=== PATIENT | female | born 1970 | race Caucasian/White ===

== ENCOUNTER → 2017-10-08 15:55 | Outpatient (CLI) | payer BC, SELFPAY ==
[2017-10-08 17:41] LABS: Absolute Lymphocyte Count 1.99 X10^3/ul (0.83-4.51); Absolute Neutrophil Count 7.1 X10^3/uL (2.0-7.7); Basophil# 0.05 X10^3/uL; Basophil% 0.5 % (0-1); Hematocrit 40.5 % (37-47); Hemoglobin 13.5 g/dl (12.0-15.0); Lymphocyte # 1.99 X10^3/ul (4.0); Lymphocyte % 19.5 % (19-41); Mean Corp Hgb Conc 33.3 g/gl (32-36); Mean Corpuscular Hgb 27.5 pg (27.0-32.0); Mean Corpuscular Volume 82.5 fL (81-99); Mean Platelet Vol. 11.2 fl (6.2-12.0); Monocyte# 0.83 X10^3/uL; Monocyte% 8.1 % (0-10); Neutrophil % 69.3 % (47-70); Platelet Count 233 K/mm3 (150-450); Red Blood Count 4.91 M/mm3 (4.2-5.4); White Blood Count 10.2 K/mm3 (4.4-11.0)
[2017-10-08 17:58] LABS: POSITIVE COUNT NO; POSITIVE DIFFERENTIAL NO; POSITIVE MORPHOLOGY NO
[2017-10-08 18:21] LABS: AST(SGOT) 19 U/L (15-37); Alanine Aminotransfer ALT/SGPT 29 U/L (13-56); Albumin, Serum 3.8 g/dL (3.2-5.0); Alkaline Phosphatase 93 U/L (45-117); Anion Gap 10 (5-15); BUN 20 mg/dL (7-18); BUN/Creat Ratio 24.9 RATIO (10-20); Calcium,Total 9.4 mg/dL (8.5-10.1); Chloride 101 mmol/L (98-107); EST Glomerular Filtration Rate 80 mL/min (>60); Est Glom Filt Rate - Afr Amer 97 mL/min (>60); Globulin 3.9 g/dL (2.2-4.2); Glucose 98 mg/dL (70-110); Protein, Total 7.7 g/dL (6.4-8.2); Sodium Level 137 mmol/L (136-145)
== END ==
PROVIDERS: Family Provider Preventive Medicine Occupational Medicine; PCP Preventive Medicine Occupational Medicine; Visit Provider Internal Medicine Rheumatology
DX: M06.09 Rheumatoid arthritis without rheumatoid factor, multiple sites (principal); M79.7 Fibromyalgia; M17.0 Bilateral primary osteoarthritis of knee; M21.40 Flat foot [pes planus] (acquired), unspecified foot; K76.0 Fatty (change of) liver, not elsewhere classified; E11.9 Type 2 diabetes mellitus without complications; I10 Essential (primary) hypertension; E03.9 Hypothyroidism, unspecified; G25.81 Restless legs syndrome; G47.33 Obstructive sleep apnea (adult) (pediatric); E28.2 Polycystic ovarian syndrome; N80.0 Endometriosis of uterus; K21.0 Gastro-esophageal reflux disease with esophagitis; Z79.899 Other long term (current) drug therapy
CPT/HCPCS: 36415; 80053; 85025

== ENCOUNTER → 2018-01-05 09:19 | Outpatient (CLI) | payer BC, SELFPAY ==
[2018-01-05 12:42] LABS: Absolute Lymphocyte Count 2.27 X10^3/ul (0.83-4.51); Absolute Neutrophil Count 5.8 X10^3/uL (2.0-7.7); Basophil# 0.03 X10^3/uL; Basophil% 0.3 % (0-1); Eosinophil# 0.11 X10^3/uL; Eosinophils% 1.2 % (0-5); Hematocrit 40.1 % (37-47); Hemoglobin 12.8 g/dl (12.0-15.0); Lymphocyte # 2.27 X10^3/ul (4.0); Lymphocyte % 25.7 % (19-41); Mean Corp Hgb Conc 31.9 g/gl (32-36); Mean Corpuscular Hgb 26.8 pg (27.0-32.0); Mean Corpuscular Volume 84.1 fL (81-99); Mean Platelet Vol. 10.2 fl (6.2-12.0); Monocyte# 0.57 X10^3/uL; Monocyte% 6.5 % (0-10); Neutrophil # 5.82 X10^3/uL (2.7-7.7); Platelet Count 251 K/mm3 (150-450); RBC Distribution Width CV 13.9 % (11.6-14.6); RBC Distribution Width SD 42.9 fl (35.1-43.9); Red Blood Count 4.77 M/mm3 (4.2-5.4); White Blood Count 8.8 K/mm3 (4.4-11.0)
[2018-01-05 13:10] LABS: AST(SGOT) 19 U/L (15-37); Alanine Aminotransfer ALT/SGPT 26 U/L (13-56); Albumin, Serum 3.7 g/dL (3.2-5.0); Alkaline Phosphatase 100 U/L (45-117); Anion Gap 7 (5-15); BUN 23 mg/dL (7-18); BUN/Creat Ratio 30.7 RATIO (10-20); Calcium,Total 9.1 mg/dL (8.5-10.1); Chloride 105 mmol/L (98-107); Creatinine, Serum 0.75 mg/dL (0.55-1.02); EST Glomerular Filtration Rate 87 mL/min (>60); Est Glom Filt Rate - Afr Amer 105 mL/min (>60); Globulin 3.8 g/dL (2.2-4.2); Glucose 120 mg/dL (74-106); Potassium 4.3 mmol/L (3.5-5.1); Protein, Total 7.5 g/dL (6.4-8.2); Sodium Level 140 mmol/L (136-145)
[2018-01-05 13:15] LABS: POSITIVE COUNT NO; POSITIVE DIFFERENTIAL NO; POSITIVE MORPHOLOGY NO
== END ==
PROVIDERS: Family Provider Preventive Medicine Occupational Medicine; PCP Preventive Medicine Occupational Medicine; Visit Provider Internal Medicine Rheumatology
DX: M06.09 Rheumatoid arthritis without rheumatoid factor, multiple sites (principal); M17.0 Bilateral primary osteoarthritis of knee; M21.40 Flat foot [pes planus] (acquired), unspecified foot; E11.9 Type 2 diabetes mellitus without complications; I10 Essential (primary) hypertension; E03.9 Hypothyroidism, unspecified; G25.81 Restless legs syndrome; E28.2 Polycystic ovarian syndrome; N80.0 Endometriosis of uterus; K76.0 Fatty (change of) liver, not elsewhere classified; M79.7 Fibromyalgia; K21.0 Gastro-esophageal reflux disease with esophagitis; G47.33 Obstructive sleep apnea (adult) (pediatric); Z79.899 Other long term (current) drug therapy
CPT/HCPCS: 36415; 80053; 85025

== ENCOUNTER → 2018-01-28 14:03 | Outpatient (CLI) | payer BC, SELFPAY ==
--- NOTE | 2018-01-28 14:12 | BI_ITS ---
MAMMOGRAPHY - BILATERAL DIAGNOSTIC REASON FOR EXAM: Female, 47 years old. 3 month history of the left breast nipple discharge. PERTINENT HISTORY: Aunt with breast cancer. TECHNIQUE: Digital bilateral breast luis (3D mammographic acquisition) in the CC and MLO projections. 2-D mediolateral oblique (MLO) and craniocaudad (CC) views of both breasts were obtained. CAD: Full Field Digital Mammography with Computer Added Detection was performed. COMPARISON: Comparison is made with prior study dated July 25, 2015 and January 08, 2017. FINDINGS: Breast Composition: The breasts are heterogeneously dense, which may obscure small masses. There are no dominant masses or suspicious calcifications. Stable bilateral benign appearing axillary lymph nodes. No other significant abnormalities are identified. There has been no significant change since the prior study. BI/DIAG MAMM W/CAD, BILAT IMPRESSION: Stable bilateral diagnostic mammogram. One year follow-up recommended. (A) ASSESSMENT CATEGORY: BIRADS Category 2: Benign. A letter regarding these results will be sent to the patient by the facility within 30 days. Approximately 10% of breast cancers are not detected by mammography. A normal mammogram should not delay biopsy of a clinically suspicious abnormality. Electronically Signed: Jakub Kyle MD at 15:57 EDT Tel [phone], Service support ,
--- NOTE | 2018-01-28 14:49 | US_ITS ---
STUDY: ULTRASOUND BREAST - LEFT REASON FOR EXAM: Female, 47 years old. Nipple discharge in the left breast. TECHNIQUE: Axial and longitudinal images of the LEFT breast were performed with a high resolution ultrasound transducer. COMPARISON: Comparison is made with prior mammogram done earlier today. FINDINGS: LEFT Breast: The retroareolar region of the breast was examined by ultrasound. No sonographic abnormality is seen. US/Breast Limited Unilateral IMPRESSION: No sonographic abnormality is seen. ASSESSMENT CATEGORY: BIRADS Category 1: Negative. A letter regarding these results will be sent to the patient by the facility within 30 days. Electronically Signed: Jakub Kyle MD at 7:58 EDT Tel [phone], Service support ,
== END ==
PROVIDERS: Family Provider Preventive Medicine Occupational Medicine; PCP Preventive Medicine Occupational Medicine
DX: N64.52 Nipple discharge (principal)
CPT/HCPCS: 76642; 77062; 77066; G0279

== ENCOUNTER → 2018-02-20 07:15 | Outpatient (CLI) | payer BC, SELFPAY ==
[2018-02-20 10:37] LABS: Microalbumin,Random Urine 10.6 mg/L (NO RANGE EST.)
[2018-02-20 10:42] LABS: Hemoglobin A1c 6.7 % (4.2-6.3)
[2018-02-20 10:57] LABS: ALB/GLOB Ratio 1.1 RATIO (0.9-2.4); AST(SGOT) 20 U/L (15-37); Alanine Aminotransfer ALT/SGPT 29 U/L (13-56); Albumin, Serum 3.5 g/dL (3.2-5.0); Alkaline Phosphatase 81 U/L (45-117); Anion Gap 8 (5-15); BUN 15 mg/dL (7-18); BUN/Creat Ratio 22.8 RATIO (10-20); Calcium,Total 8.5 mg/dL (8.5-10.1); Chloride 104 mmol/L (98-107); Creatinine, Serum 0.66 mg/dL (0.55-1.02); EST Glomerular Filtration Rate 101 mL/min (>60); Est Glom Filt Rate - Afr Amer 123 mL/min (>60); Globulin 3.2 g/dL (2.2-4.2); Glucose 104 mg/dL (74-106); Potassium 3.9 mmol/L (3.5-5.1); Protein, Total 6.7 g/dL (6.4-8.2); Sodium Level 141 mmol/L (136-145); Thyroid Stim Hormone (TSH) 0.74 uIU/mL (0.358-3.74)
== END ==
PROVIDERS: Family Provider Preventive Medicine Occupational Medicine; PCP Preventive Medicine Occupational Medicine; Visit Provider Internal Medicine Endocrinology, Diabetes & Metabolism
DX: E11.65 Type 2 diabetes mellitus with hyperglycemia (principal); E03.8 Other specified hypothyroidism
CPT/HCPCS: 36415; 80053; 82043; 83036; 84443

== ENCOUNTER → 2018-04-11 08:38 | Outpatient (CLI) | payer BC, SELFPAY ==
[2018-04-11 09:48] LABS: Absolute Lymphocyte Count 1.69 X10^3/ul (0.83-4.51); Absolute Neutrophil Count 6.5 X10^3/uL (2.0-7.7); Basophil# 0.01 X10^3/uL; Basophil% 0.1 % (0-1); Eosinophil# 0.22 X10^3/uL; Eosinophils% 2.4 % (0-5); Hematocrit 39.1 % (37-47); Hemoglobin 12.7 g/dl (12.0-15.0); Lymphocyte # 1.69 X10^3/ul (4.0); Lymphocyte % 18.5 % (19-41); Mean Corp Hgb Conc 32.5 g/gl (32-36); Mean Corpuscular Hgb 27.3 pg (27.0-32.0); Mean Corpuscular Volume 84.1 fL (81-99); Mean Platelet Vol. 10.4 fl (6.2-12.0); Monocyte# 0.65 X10^3/uL; Monocyte% 7.1 % (0-10); Neutrophil # 6.53 X10^3/uL (2.7-7.7); Neutrophil % 71.5 % (47-70); Platelet Count 198 K/mm3 (150-450); RBC Distribution Width CV 13.6 % (11.6-14.6); RBC Distribution Width SD 41.1 fl (35.1-43.9); Red Blood Count 4.65 M/mm3 (4.2-5.4); White Blood Count 9.1 K/mm3 (4.4-11.0)
[2018-04-11 09:49] LABS: POSITIVE COUNT NO; POSITIVE DIFFERENTIAL NO; POSITIVE MORPHOLOGY NO
[2018-04-11 10:15] LABS: AST(SGOT) 19 U/L (15-37); Alanine Aminotransfer ALT/SGPT 25 U/L (13-56); Albumin, Serum 3.4 g/dL (3.2-5.0); Alkaline Phosphatase 90 U/L (45-117); Anion Gap 9 (5-15); BUN 14 mg/dL (7-18); Calcium,Total 8.6 mg/dL (8.5-10.1); Chloride 103 mmol/L (98-107); Creatinine, Serum 0.64 mg/dL (0.55-1.02); EST Glomerular Filtration Rate 105 mL/min (>60); Est Glom Filt Rate - Afr Amer 127 mL/min (>60); Globulin 3.5 g/dL (2.2-4.2); Glucose 127 mg/dL (74-106); Potassium 3.9 mmol/L (3.5-5.1); Protein, Total 6.9 g/dL (6.4-8.2); Sodium Level 139 mmol/L (136-145)
== END ==
PROVIDERS: Family Provider Preventive Medicine Occupational Medicine; PCP Preventive Medicine Occupational Medicine; Visit Provider Internal Medicine Rheumatology
DX: M06.09 Rheumatoid arthritis without rheumatoid factor, multiple sites (principal); M17.0 Bilateral primary osteoarthritis of knee; M79.7 Fibromyalgia; Z79.899 Other long term (current) drug therapy
CPT/HCPCS: 36415; 80053; 85025

== ENCOUNTER → 2018-05-15 07:49 | Outpatient (CLI) | payer BC, SELFPAY ==
[2018-05-15 11:16] LABS: Hemoglobin A1c 6.7 % (4.2-6.3)
[2018-05-15 11:38] LABS: ALB/GLOB Ratio 1.1 RATIO (0.9-2.4); AST(SGOT) 21 U/L (15-37); Alanine Aminotransfer ALT/SGPT 29 U/L (13-56); Albumin, Serum 3.6 g/dL (3.2-5.0); Alkaline Phosphatase 89 U/L (45-117); Anion Gap 10 (5-15); BUN 19 mg/dL (7-18); BUN/Creat Ratio 26.6 RATIO (10-20); Calcium,Total 8.7 mg/dL (8.5-10.1); Chloride 104 mmol/L (98-107); Creatinine, Serum 0.71 mg/dL (0.55-1.02); EST Glomerular Filtration Rate 92 mL/min (>60); Est Glom Filt Rate - Afr Amer 111 mL/min (>60); Globulin 3.4 g/dL (2.2-4.2); Glucose 117 mg/dL (74-106); Potassium 4.1 mmol/L (3.5-5.1); Sodium Level 140 mmol/L (136-145)
== END ==
PROVIDERS: Family Provider Preventive Medicine Occupational Medicine; PCP Preventive Medicine Occupational Medicine; Visit Provider Internal Medicine Endocrinology, Diabetes & Metabolism
DX: E11.65 Type 2 diabetes mellitus with hyperglycemia (principal)
CPT/HCPCS: 36415; 80053; 83036

== ENCOUNTER → 2018-06-20 08:20 | Outpatient (CLI) | payer BC, SELFPAY ==
[2018-06-20 09:20] LABS: Absolute Lymphocyte Count 1.74 X10^3/ul (0.83-4.51); Absolute Neutrophil Count 8.1 X10^3/uL (2.0-7.7); Basophil# 0.02 X10^3/uL; Basophil% 0.2 % (0-1); Eosinophil# 0.11 X10^3/uL; Hematocrit 40.9 % (37-47); Hemoglobin 13.6 g/dl (12.0-15.0); Lymphocyte # 1.74 X10^3/ul (4.0); Lymphocyte % 16.2 % (19-41); Mean Corp Hgb Conc 33.3 g/gl (32-36); Mean Corpuscular Hgb 27.8 pg (27.0-32.0); Mean Corpuscular Volume 83.6 fL (81-99); Mean Platelet Vol. 10.5 fl (6.2-12.0); Monocyte# 0.74 X10^3/uL; Monocyte% 6.9 % (0-10); Neutrophil # 8.05 X10^3/uL (2.7-7.7); Neutrophil % 75.2 % (47-70); POSITIVE COUNT NO; POSITIVE DIFFERENTIAL NO; POSITIVE MORPHOLOGY NO; Platelet Count 235 K/mm3 (150-450); RBC Distribution Width CV 13.8 % (11.6-14.6); RBC Distribution Width SD 41.7 fl (35.1-43.9); Red Blood Count 4.89 M/mm3 (4.2-5.4); White Blood Count 10.7 K/mm3 (4.4-11.0)
[2018-06-20 09:43] LABS: AST(SGOT) 22 U/L (15-37); Alanine Aminotransfer ALT/SGPT 31 U/L (13-56); Albumin, Serum 3.7 g/dL (3.2-5.0); Alkaline Phosphatase 97 U/L (45-117); Anion Gap 9 (5-15); BUN 14 mg/dL (7-18); BUN/Creat Ratio 19.3 RATIO (10-20); Calcium,Total 9.1 mg/dL (8.5-10.1); Chloride 102 mmol/L (98-107); Creatinine, Serum 0.72 mg/dL (0.55-1.02); EST Glomerular Filtration Rate 90 mL/min (>60); Est Glom Filt Rate - Afr Amer 109 mL/min (>60); Globulin 3.6 g/dL (2.2-4.2); Glucose 129 mg/dL (74-106); Potassium 4.3 mmol/L (3.5-5.1); Protein, Total 7.3 g/dL (6.4-8.2); Sodium Level 138 mmol/L (136-145)
[2018-06-20 10:13] LABS: CORTISOL SERUM < 0.50 ug/dL (3.09-22.40)
== END ==
PROVIDERS: Family Provider Preventive Medicine Occupational Medicine; PCP Preventive Medicine Occupational Medicine; Referring Provider Internal Medicine Endocrinology, Diabetes & Metabolism; Visit Provider Internal Medicine Endocrinology, Diabetes & Metabolism
DX: E24.9 Cushing's syndrome, unspecified (principal); M06.09 Rheumatoid arthritis without rheumatoid factor, multiple sites; M79.7 Fibromyalgia; M17.0 Bilateral primary osteoarthritis of knee; M21.40 Flat foot [pes planus] (acquired), unspecified foot; K21.0 Gastro-esophageal reflux disease with esophagitis; K76.0 Fatty (change of) liver, not elsewhere classified; E11.9 Type 2 diabetes mellitus without complications; I10 Essential (primary) hypertension; E03.9 Hypothyroidism, unspecified; G25.81 Restless legs syndrome; G47.33 Obstructive sleep apnea (adult) (pediatric); E28.2 Polycystic ovarian syndrome; N80.0 Endometriosis of uterus
CPT/HCPCS: 36415; 80053; 82533; 85025

== ENCOUNTER → 2018-08-14 13:34 | Outpatient (CLI) | payer BC, SELFPAY ==
--- NOTE | 2018-08-14 13:42 | BI_ITS ---
MAMMOGRAPHY - BILATERAL DIAGNOSTIC REASON FOR EXAM: Female, 48 years old. Six-week history of bilateral axillary lumps. PERTINENT HISTORY: Aunt with breast cancer. TECHNIQUE: Digital bilateral breast luis (3D mammographic acquisition) in the CC and MLO projections. 2-D mediolateral oblique (MLO) and craniocaudad (CC) views of both breasts were obtained. CAD: Full Field Digital Mammography with Computer Added Detection was performed. COMPARISON: Comparison is made with prior study dated January 28, 2018 and January 08, 2017. FINDINGS: Breast Composition: The breasts are heterogeneously dense, which may obscure small masses. There are no dominant masses or suspicious calcifications. Stable benign-appearing bilateral axillary lymph nodes. No other significant abnormalities are identified. There has been no significant change since the prior study. BI/DIAG MAMM W/CAD, BILAT IMPRESSION: Stable bilateral diagnostic mammogram. With the patient's history of palpable abnormalities in both axillary regions, correlation with ultrasound is recommended. ASSESSMENT CATEGORY: BIRADS Category 0: Incomplete. Need additional imaging evaluation. A letter regarding these results will be sent to the patient by the facility within 30 days. Approximately 10% of breast cancers are not detected by mammography. A normal mammogram should not delay biopsy of a clinically suspicious abnormality. Electronically Signed: Jakub Kyle MD at 15:00 EST Tel [phone], Service support ,
--- NOTE | 2018-08-14 13:43 | US_ITS ---
STUDY: ULTRASOUND BREAST - RIGHT REASON FOR EXAM: Female, 48 years old. Bilateral axillary lumps. TECHNIQUE: Axial and longitudinal images of the RIGHT breast were performed with a high resolution ultrasound transducer. COMPARISON: Comparison is made with prior mammogram done earlier today. FINDINGS: RIGHT Breast: 2 benign-appearing lymph nodes are seen in the right axilla. The larger measures 1.7 cm x 2.3 cm x 0.9 cm. IMPRESSION: 2 benign-appearing right axillary lymph nodes. ASSESSMENT CATEGORY: BIRADS Category 2: Benign. A letter regarding these results will be sent to the patient by the facility within 30 days. Electronically Signed: Jakub Kyle MD at 15:42 EST Tel [phone], Service support , STUDY: ULTRASOUND BREAST - LEFT REASON FOR EXAM: Female, 48 years old. Left axillary lumps. TECHNIQUE: Axial and longitudinal images of the LEFT breast were performed with a high resolution ultrasound transducer. COMPARISON: Comparison is made with prior mammogram done earlier today. FINDINGS: LEFT Breast: There are 2 benign-appearing axillary lymph nodes. The larger measures 1.9 cm x 1.5 cm x 1 cm. US/Breast Limited Unilateral IMPRESSION: 2 benign-appearing lymph nodes are seen. The larger measures 1.9 cm x 1.5 cm x 1 cm. ASSESSMENT CATEGORY: BIRADS Category 2: Benign. A letter regarding these results will be sent to the patient by the facility within 30 days. Electronically Signed: Jakub Kyle MD at 15:43 EST Tel [phone], Service support ,
== END ==
PROVIDERS: Family Provider Preventive Medicine Occupational Medicine; PCP Preventive Medicine Occupational Medicine; Referring Provider Preventive Medicine Occupational Medicine; Visit Provider Preventive Medicine Occupational Medicine
DX: N63.0 Unspecified lump in unspecified breast (principal)
CPT/HCPCS: 76642; 77062; 77066; G0279

== ENCOUNTER → 2018-09-23 07:30 | Outpatient (CLI) | payer BC, SELFPAY ==
[2018-09-23 10:09] LABS: Absolute Lymphocyte Count 1.85 X10^3/ul (0.83-4.51); Absolute Neutrophil Count 5.1 X10^3/uL (2.0-7.7); Basophil# 0.03 X10^3/uL; Basophil% 0.4 % (0-1); Eosinophil# 0.15 X10^3/uL; Eosinophils% 1.9 % (0-5); Hematocrit 38.7 % (37-47); Hemoglobin 12.9 g/dl (12.0-15.0); Lymphocyte # 1.85 X10^3/ul (4.0); Lymphocyte % 23.4 % (19-41); Mean Corp Hgb Conc 33.3 g/gl (32-36); Mean Corpuscular Hgb 27.9 pg (27.0-32.0); Mean Corpuscular Volume 83.8 fL (81-99); Mean Platelet Vol. 10.5 fl (6.2-12.0); Monocyte# 0.74 X10^3/uL; Monocyte% 9.4 % (0-10); Neutrophil # 5.09 X10^3/uL (2.7-7.7); Neutrophil % 64.4 % (47-70); POSITIVE COUNT NO; POSITIVE DIFFERENTIAL NO; POSITIVE MORPHOLOGY NO; Platelet Count 265 K/mm3 (150-450); RBC Distribution Width CV 13.4 % (11.6-14.6); RBC Distribution Width SD 40.3 fl (35.1-43.9); Red Blood Count 4.62 M/mm3 (4.2-5.4); White Blood Count 7.9 K/mm3 (4.4-11.0)
[2018-09-23 10:20] LABS: ALB/GLOB Ratio 1.2 RATIO (0.9-2.4); AST(SGOT) 21 U/L (15-37); Alanine Aminotransfer ALT/SGPT 32 U/L (13-56); Albumin, Serum 3.8 g/dL (3.2-5.0); Alkaline Phosphatase 96 U/L (45-117); Anion Gap 8 (5-15); BUN 20 mg/dL (7-18); BUN/Creat Ratio 23.5 RATIO (10-20); Calcium,Total 9.2 mg/dL (8.5-10.1); Chloride 106 mmol/L (98-107); Cholesterol 178 mg/dL (200); Creatinine, Serum 0.85 mg/dL (0.55-1.02); EST Glomerular Filtration Rate 75 mL/min (>60); Est Glom Filt Rate - Afr Amer 91 mL/min (>60); Globulin 3.3 g/dL (2.2-4.2); Glucose 121 mg/dL (74-106); High Density Lipoprotein 63 mg/dL; Potassium 3.8 mmol/L (3.5-5.1); Protein, Total 7.1 g/dL (6.4-8.2); Sodium Level 140 mmol/L (136-145); Triglycerides 98 mg/dL; Very Low Density Lipoprotein 20 mg/dL (5-40)
[2018-09-23 10:26] LABS: Hemoglobin A1c 7.8 % (4.2-6.3)
--- OUTSIDE RECORDS SUMMARY | 2018-11-27 22:24 | XMS RPT_ITS ---
:1970 Author Organization OHIP Support Name Relationship Address Phone [facility] Unavailable [id number] + [place] [address] LORIE, ULYSSES Unavailable [address] + [place] [address] [facility] Unavailable [address] + [place] [address] LORIE, ULYSSES Unavailable [address] + [place] [address] [facility] Unavailable [address] + [place] [address] LORIE, ULYSSES Unavailable [address] + [place] [address] [facility] Unavailable [address] + [place] [address] LORIE, ULYSSES Unavailable [address] + [place] [address] [facility] Unavailable [address] + [place] [address] LORIE, ULYSSES Unavailable [address] + [place] [address] [facility] Unavailable [address] + [place] [address] LORIE, ULYSSES Unavailable [address] + [place] [address] LORIE, OLIVIA Unavailable Unavailable + LORIE, OLIVIA Unavailable Unavailable + [facility] Unavailable [address] + [place] [address] LORIE, ULYSSES Unavailable [address] + [place] [address] [facility] Unavailable [address] + [place] [address] LORIE, ULYSSES Unavailable [address] + [place] [address] [facility] Unavailable [address] + [place] [address] LORIE, ULYSSES Unavailable [address] + [place] [address] Care Team Providers Name Role Phone EMELY JERONIMO, [phone] SANDRA Attending Unavailable SHIRA, SERGIO Primary Care Unavailable Vellanki, Lena Attending Unavailable Vellanki, Lena Referring Unavailable Shira, Sergio Primary Care Unavailable WIETECHA, SIVA Consulting Unavailable Vellanki, Lena Attending Unavailable Vellanki, Lena Referring Unavailable Shira, Sergio Primary Care Unavailable Vellanki, Lena Attending Unavailable Vellanki, Lena Referring Unavailable Shira, Sergio Primary Care Unavailable MANJIT WILLOUGHBY Attending Unavailable Shira, Sergio Primary Care Unavailable TATIANA, SIVA Attending Unavailable WIETECHA, SIVA Referring Unavailable Shira, Sergio Primary Care Unavailable Vellanki, Lena Attending Unavailable Vellanki, Lena Referring Unavailable Shira, Sergio Primary Care Unavailable WIDAWSON, SIVA Attending Unavailable WIETECHA, SIVA Referring Unavailable Shira, Sergio Primary Care Unavailable WIETECHA, SIVA Attending Unavailable WIETECHA, SIVA Referring Unavailable Shira, Sergio Primary Care Unavailable Vellanki, Lena Consulting Unavailable Shira Sergio Attending Unavailable Shira, Sergio Primary Care Unavailable Shira, Sergio Referring Unavailable PROBLEMS PROBLEMS DATE TYPE CONDITION / CODE ATTENDING STATUS SOURCE 09/23/2018 Unknown M06.09 - Rheumatoid Vellanki, Lena Active [place] arthritis without Community rheumatoid factor, Hospital multiple sites / Repository M06.09(ICD-10) 09/23/2018 Unknown Z79.899 - Other long Vellanki, Lena Active [facility] term (current) drug Community therapy / Hospital Z79.899(ICD-10) Repository 09/23/2018 Unknown M79.7 - Fibromyalgia Vellanki, Lena Active [facility] / M79.7(ICD-10) [facility] Repository 09/23/2018 Unknown M17.0 - Bilateral Vellanki, Lena Active [place] primary Community osteoarthritis of Hospital knee / M17.0(ICD-10) Repository 09/23/2018 Unknown E11.9 - Type 2 Lena Colon Active [place] diabetes mellitus Community without Hospital complications / Repository E11.9(ICD-10) 09/23/2018 Unknown E78.2 - Mixed Lena Colon Active [place] hyperlipidemia / Community E78.2(ICD-10) Hospital Repository 05/15/2018 Unknown E11.65 - Type 2 SIVA SIMPSON Active [place] diabetes mellitus Community with hyperglycemia / Hospital E11.65(ICD-10) Repository 2018 Unknown E03.8 - Other SIVA SIMPSON Active [place] specified Community hypothyroidism / Hospital E03.8(ICD-10) Repository PROCEDURES PROCEDURES No Procedure Records FoundRESULTS RESULTS CBC W/DIFF, AUTOMATED Collected: 09/23/2018 Status: F Source: [facility] 7:35 AM [facility] Order Comment: DR COLON ORDERED CMP/CBCD DR SIMPSON ORDERED CMP/LIPID/A1C TYPE CODE TESTS RESULT OUT OF RANGE REFERENCE UNITS LAB L100.1000 4.4-11.0 K/mm3 Normal WBC 7.9 LAB L100.1200 4.2-5.4 M/mm3 Normal RBC 4.62 LAB L100.1300 12.0-15.0 g/dl Normal HGB 12.9 LAB L100.1400 37-47 % Normal HCT 38.7 LAB L100.1500 81-99 fL Normal MCV 83.8 LAB L100.1600 27.0-32.0 pg Normal MCH 27.9 LAB L100.1700 32-36 g/gl Normal MCHC 33.3 LAB L100.1810 11.6-14.6 % Normal RDW CV 13.4 LAB L100.1820 35.1-43.9 fl Normal RDW SD 40.3 LAB L100.1900 150-450 K/mm3 Normal PLT 265 LAB L100.2000 6.2-12.0 fl Normal MPV 10.5 LAB L100.2100 47-70 % Normal NEUT% 64.4 LAB L100.2200 19-41 % Normal LY% 23.4 LAB L100.2300 0-10 % Normal MONO% 9.4 LAB L100.2400 0-5 % Normal EO% 1.9 LAB L100.2500 0-1 % Normal BASO% 0.4 LAB L100.2550 0.0-0.9 % Normal IM GRAN % 0.500 Result Comment: IG% - Immature Granulocytes (promyelocytes, myelocytes and metamyelocytes) > 1% indicates that a LEFT SHIFT is Present. LAB L100.2620 2.0-7.7 X10 3/uL Normal Absolute Neut 5.1 LAB L100.2720 0.83-4.51 X10 3/ul Normal Absolute Lymph 1.85 Performed By: #### L100.0100 #### [facility] [address] [place], [address] COMPREHENSIVE METABOLIC Collected: 09/23/2018 Status: F Source: [facility] 7:35 AM [facility] REPOSITORY Order Comment: DR COLON ORDERED CMP/CBCD DR SIMPSON ORDERED CMP/LIPID/A1C TYPE CODE TESTS RESULT OUT OF RANGE REFERENCE UNITS LAB L501.0100 74-106 mg/dL High GLU 121 Result Comment: Fasting Glucose result from 100 to 125 mg/dL suggests IMPAIRED HOMEOSTASIS per A.D.A. criteria. Please note revised GLUCOSE reference range effective 2017. LAB L501.1000 7-18 mg/dL High BUN 20 LAB L501.1100 0.55-1.02 mg/dL Normal CREAT,SERUM 0.85 Result Comment: The validity of the calculated GFR AND GFRAA in patients over 70 years has not been determined. Clinical correlation is essential. LAB L501.1110 >60 mL/min Normal EST GFR 75 Result Comment: Non- GFR Calc LAB L501.1115 >60 mL/min Normal EST GFR - AA 91 Result Comment: GFR Calc LAB L501.1300 10-20 RATIO High BUN/CRE 23.5 LAB L501.1500 6.4-8.2 g/dL T Normal PROT 7.1 LAB L501.1800 3.2-5.0 g/dL Normal ALB 3.8 LAB L501.1950 2.2-4.2 g/dL Normal GLOB 3.3 LAB L501.2000 0.9-2.4 RATIO Normal A/G 1.2 LAB L501.2200 8.5-10.1 mg/dL CA Normal 9.2 LAB L501.4100 15-37 U/L Normal AST 21 LAB L501.4305 45-117 U/L Normal ALK P 96 LAB L501.4405 13-56 U/L Normal ALT 32 LAB L501.4600 0.20-1.00 mg/dL T Normal BILI 0.40 LAB L501.5300 136-145 mmol/L NA Normal 140 LAB L501.5600 3.5-5.1 mmol/L K Normal 3.8 LAB L501.5900 98-107 mmol/L CL Normal 106 LAB L501.6100 21.0-32.0 mmol/L Normal CO2 26.0 LAB L501.6200 5-15 Normal GAP 8 Performed By: #### L500.4050, L500.4100 #### [facility] [address] [place], [place], [address] LIPID PROFILE Collected: 09/23/2018 Status: F Source: [facility] 7:35 AM [facility] REPOSITORY Order Comment: DR COLON ORDERED CMP/CBCD DR SIMPSON ORDERED CMP/LIPID/A1C TYPE CODE TESTS RESULT OUT OF RANGE REFERENCE UNITS LAB L501.4900 200 mg/dL Normal CHOL 178 Result Comment: <200 mg/dL Desirable 200-240 mg/dL Borderline >240 mg/dL High Risk LAB L501.5000 mg/dL Normal TRIG 98 Result Comment: The drugs N-Acetylcysteine and Metamizole may falsely depress this assay. Serum Triglycerides Reference Interval Normal <150 mg/dL Borderline high 150 - 199 mg/dL High 200 - 499 mg/dL Very High > or = 500 mg/dL LAB L501.6400 mg/dL Normal HDL 63 Result Comment: The drugs N-Acetylcysteine and Metamizole may falsely depress this assay. Reference Range HDL <40 mg/dL Low HDL Cholesterol HDL >or= 60 mg/dL High HDL Cholesterol LAB L501.6500 0-130 mg/dL Normal LDL 95 LAB L501.6600 5-40 mg/dL Normal VLDL 20 Performed By: #### L500.4050, L500.4100 #### [facility] [address] [place], [place], [address] HEMOGLOBIN A1C Collected: 09/23/2018 Status: F Source: [facility] 7:35 AM [facility] REPOSITORY Order Comment: DR COLON ORDERED CMP/CBCD DR SIMPSON ORDERED CMP/LIPID/A1C TYPE CODE TESTS RESULT OUT OF RANGE REFERENCE UNITS LAB L501.9985 4.2-6.3 % High HGB A1C 7.8 Performed By: #### L501.9985 #### [facility] [address] [place], [address] DIAG MAMM W/CAD, Observed: 08/14/2018 Status: F Source: [facility] 1:43 PM [facility] REPOSITORY [facility] Imaging Services [address] [place] [address] DIAG MAMM W/CAD, BILAT MR#: [id number] Acct: [id number] Name: PRAVIN MELO Rep #: [id number] : 1970 F 48 From: Jakub Kyle MD PCP: Sergio Silva DO Status: REG CLI Study: DIAG MAMM W/CAD, BILAT Date of Exam: 08/14/18 Exam# [id number] Ordering Dr: Sergio Silva DO MAMMOGRAPHY - BILATERAL DIAGNOSTIC REASON FOR EXAM: Female, 48 years old. Six-week history of bilateral axillary lumps. PERTINENT HISTORY: Aunt with breast cancer. TECHNIQUE: Digital bilateral breast luis (3D mammographic acquisition) in the CC and MLO projections. 2-D mediolateral oblique (MLO) and craniocaudad (CC) views of both breasts were obtained. CAD: Full Field Digital Mammography with Computer Added Detection was performed. COMPARISON: Comparison is made with prior study dated January 28, 2018 and January 08, 2017. FINDINGS: Breast Composition: The breasts are heterogeneously dense, which may obscure small masses. There are no dominant masses or suspicious calcifications. Stable benign-appearing bilateral axillary lymph nodes. No other significant abnormalities are identified. There has been no significant change since the prior study. BI/DIAG MAMM W/CAD, BILAT IMPRESSION: Stable bilateral diagnostic mammogram. With the patient's history of palpable abnormalities in both axillary regions, correlation with ultrasound is recommended. ASSESSMENT CATEGORY: BIRADS Category 0: Incomplete. Need additional imaging evaluation. A letter regarding these results will be sent to the patient by the facility within 30 days. Approximately 10% of breast cancers are not detected by mammography. A normal mammogram should not delay biopsy of a clinically suspicious abnormality. Electronically Signed: Jakub Kyle MD at 15:00 EST Tel [phone], Service support , CC: Sergio Silva DO Puppet Maker: Signed BREAST LIMITED Observed: 08/14/2018 Status: F Source: [facility] 1:43 PM [facility] REPOSITORY [facility] Imaging Services [address] [place] [address] Breast Limited Unilateral MR#: [id number] Acct: [id number] Name: PRAVIN MELO Rep #: [id number] : 1970 F 48 From: Jakub Kyle MD PCP: Sergio Silva DO Status: REG CLI Study: Breast Limited Unilateral Date of Exam: 08/14/18 Exam# [id number] Ordering Dr: Sergio Silva DO STUDY: ULTRASOUND BREAST - RIGHT REASON FOR EXAM: Female, 48 years old. Bilateral axillary lumps. TECHNIQUE: Axial and longitudinal images of the RIGHT breast were performed with a high resolution ultrasound transducer. COMPARISON: Comparison is made with prior mammogram done earlier today. FINDINGS: RIGHT Breast: 2 benign-appearing lymph nodes are seen in the right axilla. The larger measures 1.7 cm x 2.3 cm x 0.9 cm. IMPRESSION: 2 benign-appearing right axillary lymph nodes. ASSESSMENT CATEGORY: BIRADS Category 2: Benign. A letter regarding these results will be sent to the patient by the facility within 30 days. Electronically Signed: Jakub Kyle MD at 15:42 EST Tel [phone], Service support , STUDY: ULTRASOUND BREAST - LEFT REASON FOR EXAM: Female, 48 years old. Left axillary lumps. TECHNIQUE: Axial and longitudinal images of the LEFT breast were performed with a high resolution ultrasound transducer. COMPARISON: Comparison is made with prior mammogram done earlier today. FINDINGS: LEFT Breast: There are 2 benign-appearing axillary lymph nodes. The larger measures 1.9 cm x 1.5 cm x 1 cm. US/Breast Limited Unilateral IMPRESSION: 2 benign-appearing lymph nodes are seen. The larger measures 1.9 cm x 1.5 cm x 1 cm. ASSESSMENT CATEGORY: BIRADS Category 2: Benign. A letter regarding these results will be sent to the patient by the facility within 30 days. Electronically Signed: Jakub Kyle MD at 15:43 EST Tel [phone], Service support , CC: Sergio Silva DO Puppet Maker: Signed CBC W/DIFF, AUTOMATED Collected: 06/20/2018 Status: F Source: [facility] 8:23 AM [facility] REPOSITORY Order Comment: DR COLON ORDERED CBCD CMP DR SIMPSON ORDERED CORTISOL TYPE CODE TESTS RESULT OUT OF RANGE REFERENCE UNITS LAB L100.1000 4.4-11.0 K/mm3 Normal WBC 10.7 LAB L100.1200 4.2-5.4 M/mm3 Normal RBC 4.89 LAB L100.1300 12.0-15.0 g/dl Normal HGB 13.6 LAB L100.1400 37-47 % Normal HCT 40.9 LAB L100.1500 81-99 fL Normal MCV 83.6 LAB L100.1600 27.0-32.0 pg Normal MCH 27.8 LAB L100.1700 32-36 g/gl Normal MCHC 33.3 LAB L100.1810 11.6-14.6 % Normal RDW CV 13.8 LAB L100.1820 35.1-43.9 fl Normal RDW SD 41.7 LAB L100.1900 150-450 K/mm3 Normal PLT 235 LAB L100.2000 6.2-12.0 fl Normal MPV 10.5 LAB L100.2100 47-70 % High NEUT% 75.2 LAB L100.2200 19-41 % Low LY% 16.2 LAB L100.2300 0-10 % Normal MONO% 6.9 LAB L100.2400 0-5 % Normal EO% 1.0 LAB L100.2500 0-1 % Normal BASO% 0.2 LAB L100.2550 0.0-0.9 % Normal IM GRAN % 0.500 Result Comment: IG% - Immature Granulocytes (promyelocytes, myelocytes and metamyelocytes) > 1% indicates that a LEFT SHIFT is Present. LAB L100.2620 2.0-7.7 X10 3/uL High Absolute Neut 8.1 LAB L100.2720 0.83-4.51 X10 3/ul Normal Absolute Lymph 1.74 Performed By: #### L100.0100 #### [facility] [address] [place], [place] [address]matias. [place], [place], [address] COMPREHENSIVE METABOLIC Collected: 06/20/2018 Status: F Source: [facility] 8:23 AM [facility] REPOSITORY Order Comment: DR COLON ORDERED CBCD CMP DR SIMPSON ORDERED CORTISOL TYPE CODE TESTS RESULT OUT OF RANGE REFERENCE UNITS LAB L501.0100 74-106 mg/dL High GLU 129 Result Comment: Fasting Glucose result greater than or equal to 126 mg/dL suggests DIABETES MELLITUS per A.D.A. criteria. Please note revised GLUCOSE reference range effective 2017. LAB L501.1000 7-18 mg/dL Normal BUN 14 LAB L501.1100 0.55-1.02 mg/dL Normal CREAT,SERUM 0.72 Result Comment: The validity of the calculated GFR AND GFRAA in patients over 70 years has not been determined. Clinical correlation is essential. LAB L501.1110 >60 mL/min Normal EST GFR 90 Result Comment: Non- GFR Calc LAB L501.1115 >60 mL/min Normal EST GFR - AA 109 Result Comment: GFR Calc LAB L501.1300 10-20 RATIO Normal BUN/CRE 19.3 LAB L501.1500 6.4-8.2 g/dL T Normal PROT 7.3 LAB L501.1800 3.2-5.0 g/dL Normal ALB 3.7 LAB L501.1950 2.2-4.2 g/dL Normal GLOB 3.6 LAB L501.2000 0.9-2.4 RATIO Normal A/G 1.0 LAB L501.2200 8.5-10.1 mg/dL CA Normal 9.1 LAB L501.4100 15-37 U/L Normal AST 22 LAB L501.4305 45-117 U/L Normal ALK P 97 LAB L501.4405 13-56 U/L Normal ALT 31 LAB L501.4600 0.20-1.00 mg/dL T Normal BILI 0.40 LAB L501.5300 136-145 mmol/L NA Normal 138 LAB L501.5600 3.5-5.1 mmol/L K Normal 4.3 LAB L501.5900 98-107 mmol/L CL Normal 102 LAB L501.6100 21.0-32.0 mmol/L Normal CO2 27.0 LAB L501.6200 5-15 Normal GAP 9 Performed By: #### L500.4050 #### [facility] [address] [place], [address] CORTISOL SERUM Collected: 06/20/2018 Status: F Source: [facility] 8:23 AM [facility] REPOSITORY Order Comment: DR COLON ORDERED CBCD CMP DR WIETECHA ORDERED CORTISOL TYPE CODE TESTS RESULT OUT OF REFERENCE UNITS RANGE LAB L509.6000 3.09-22.40 ug/dL Low CORTISOL < 0.50 Result Comment: Adult (AM) 4.30 - 22.40 ug/dL Adult (PM) 3.09 - 16.66 ug/dL Performed By: #### L509.6000 #### [facility] [address] [place], [address] HEMOGLOBIN A1C Collected: 05/15/2018 Status: F Source: [facility] 8:00 AM [facility] REPOSITORY TYPE CODE TESTS RESULT OUT OF RANGE REFERENCE UNITS LAB L501.9985 4.2-6.3 % High HGB A1C 6.7 Performed By: #### L501.9985 #### [facility] [address] [place], [address] COMPREHENSIVE METABOLIC Collected: 05/15/2018 Status: F Source: [facility] 8:00 AM [facility] REPOSITORY TYPE CODE TESTS RESULT OUT OF RANGE REFERENCE UNITS LAB L501.0100 74-106 mg/dL High GLU 117 Result Comment: Fasting Glucose result from 100 to 125 mg/dL suggests IMPAIRED HOMEOSTASIS per A.D.A. criteria. Please note revised GLUCOSE reference range effective 2017. LAB L501.1000 7-18 mg/dL High BUN 19 LAB L501.1100 0.55-1.02 mg/dL Normal CREAT,SERUM 0.71 Result Comment: The validity of the calculated GFR AND GFRAA in patients over 70 years has not been determined. Clinical correlation is essential. LAB L501.1110 >60 mL/min Normal EST GFR 92 Result Comment: Non- GFR Calc LAB L501.1115 >60 mL/min Normal EST GFR - AA 111 Result Comment: GFR Calc LAB L501.1300 10-20 RATIO High BUN/CRE 26.6 LAB L501.1500 6.4-8.2 g/dL T Normal PROT 7.0 LAB L501.1800 3.2-5.0 g/dL Normal ALB 3.6 LAB L501.1950 2.2-4.2 g/dL Normal GLOB 3.4 LAB L501.2000 0.9-2.4 RATIO Normal A/G 1.1 LAB L501.2200 8.5-10.1 mg/dL CA Normal 8.7 LAB L501.4100 15-37 U/L Normal AST 21 LAB L501.4305 45-117 U/L Normal ALK P 89 LAB L501.4405 13-56 U/L Normal ALT 29 LAB L501.4600 0.20-1.00 mg/dL T Normal BILI 0.30 LAB L501.5300 136-145 mmol/L NA Normal 140 LAB L501.5600 3.5-5.1 mmol/L K Normal 4.1 LAB L501.5900 98-107 mmol/L CL Normal 104 LAB L501.6100 21.0-32.0 mmol/L Normal CO2 26.0 LAB L501.6200 5-15 Normal GAP 10 Performed By: #### L500.4050 #### [facility] [address] [place], [address] CBC W/DIFF, AUTOMATED Collected: 04/11/2018 Status: F Source: [facility] 8:41 AM [facility] REPOSITORY TYPE CODE TESTS RESULT OUT OF RANGE REFERENCE UNITS LAB L100.1000 4.4-11.0 K/mm3 Normal WBC 9.1 LAB L100.1200 4.2-5.4 M/mm3 Normal RBC 4.65 LAB L100.1300 12.0-15.0 g/dl Normal HGB 12.7 LAB L100.1400 37-47 % Normal HCT 39.1 LAB L100.1500 81-99 fL Normal MCV 84.1 LAB L100.1600 27.0-32.0 pg Normal MCH 27.3 LAB L100.1700 32-36 g/gl Normal MCHC 32.5 LAB L100.1810 11.6-14.6 % Normal RDW CV 13.6 LAB L100.1820 35.1-43.9 fl Normal RDW SD 41.1 LAB L100.1900 150-450 K/mm3 Normal PLT 198 LAB L100.2000 6.2-12.0 fl Normal MPV 10.4 LAB L100.2100 47-70 % High NEUT% 71.5 LAB L100.2200 19-41 % Low LY% 18.5 LAB L100.2300 0-10 % Normal MONO% 7.1 LAB L100.2400 0-5 % Normal EO% 2.4 LAB L100.2500 0-1 % Normal BASO% 0.1 LAB L100.2550 0.0-0.9 % Normal IM GRAN % 0.400 Result Comment: IG% - Immature Granulocytes (promyelocytes, myelocytes and metamyelocytes) > 1% indicates that a LEFT SHIFT is Present. LAB L100.2620 2.0-7.7 X10 3/uL Normal Absolute Neut 6.5 LAB L100.2720 0.83-4.51 X10 3/ul Normal Absolute Lymph 1.69 Performed By: #### L100.0100 #### [facility] [address] [place], [place], [address] COMPREHENSIVE METABOLIC Collected: 04/11/2018 Status: F Source: [facility] 8:41 AM [facility] REPOSITORY TYPE CODE TESTS RESULT OUT OF RANGE REFERENCE UNITS LAB L501.0100 74-106 mg/dL High GLU 127 Result Comment: Fasting Glucose result greater than or equal to 126 mg/dL suggests DIABETES MELLITUS per A.D.A. criteria. Please note revised GLUCOSE reference range effective 2017. LAB L501.1000 7-18 mg/dL Normal BUN 14 LAB L501.1100 0.55-1.02 mg/dL Normal CREAT,SERUM 0.64 Result Comment: The validity of the calculated GFR AND GFRAA in patients over 70 years has not been determined. Clinical correlation is essential. LAB L501.1110 >60 mL/min Normal EST GFR 105 Result Comment: Non- GFR Calc LAB L501.1115 >60 mL/min Normal EST GFR - AA 127 Result Comment: GFR Calc LAB L501.1300 10-20 RATIO High BUN/CRE 22.0 LAB L501.1500 6.4-8.2 g/dL T Normal PROT 6.9 LAB L501.1800 3.2-5.0 g/dL Normal ALB 3.4 LAB L501.1950 2.2-4.2 g/dL Normal GLOB 3.5 LAB L501.2000 0.9-2.4 RATIO Normal A/G 1.0 LAB L501.2200 8.5-10.1 mg/dL CA Normal 8.6 LAB L501.4100 15-37 U/L Normal AST 19 LAB L501.4305 45-117 U/L Normal ALK P 90 LAB L501.4405 13-56 U/L Normal ALT 25 LAB L501.4600 0.20-1.00 mg/dL T Normal BILI 0.50 LAB L501.5300 136-145 mmol/L NA Normal 139 LAB L501.5600 3.5-5.1 mmol/L K Normal 3.9 LAB L501.5900 98-107 mmol/L CL Normal 103 LAB L501.6100 21.0-32.0 mmol/L Normal CO2 27.0 LAB L501.6200 5-15 Normal GAP 9 Performed By: #### L500.4050 #### [facility] [address] [place], [address] MICROALBUMIN,RANDOM URINE Collected: Status: F Source: [facility] 2018 7:21 AM [facility] REPOSITORY TYPE CODE TESTS RESULT OUT OF RANGE REFERENCE UNITS LAB L502.0500 NO RANGE EST. mg/L Normal 10.6 MICROALBUMIN ,UR Performed By: #### L502.0500 #### [facility] [address] [place], [address] HEMOGLOBIN A1C Collected: 2018 Status: F Source: [facility] 7:21 AM [facility] REPOSITORY TYPE CODE TESTS RESULT OUT OF RANGE REFERENCE UNITS LAB L501.9985 4.2-6.3 % High HGB A1C 6.7 Performed By: #### L501.9985 #### [facility] [address] [place], [address] COMPREHENSIVE METABOLIC Collected: 2018 Status: F Source: [facility] 7:21 AM [facility] REPOSITORY TYPE CODE TESTS RESULT OUT OF RANGE REFERENCE UNITS LAB L501.0100 74-106 mg/dL Normal GLU 104 Result Comment: Fasting Glucose result from 100 to 125 mg/dL suggests IMPAIRED HOMEOSTASIS per A.D.A. criteria. Please note revised GLUCOSE reference range effective 2017. LAB L501.1000 7-18 mg/dL Normal BUN 15 LAB L501.1100 0.55-1.02 mg/dL Normal CREAT,SERUM 0.66 Result Comment: The validity of the calculated GFR AND GFRAA in patients over 70 years has not been determined. Clinical correlation is essential. LAB L501.1110 >60 mL/min Normal EST GFR 101 Result Comment: Non- GFR Calc LAB L501.1115 >60 mL/min Normal EST GFR - AA 123 Result Comment: GFR Calc LAB L501.1300 10-20 RATIO High BUN/CRE 22.8 LAB L501.1500 6.4-8.2 g/dL T Normal PROT 6.7 LAB L501.1800 3.2-5.0 g/dL Normal ALB 3.5 LAB L501.1950 2.2-4.2 g/dL Normal GLOB 3.2 LAB L501.2000 0.9-2.4 RATIO Normal A/G 1.1 LAB L501.2200 8.5-10.1 mg/dL CA Normal 8.5 LAB L501.4100 15-37 U/L Normal AST 20 LAB L501.4305 45-117 U/L Normal ALK P 81 LAB L501.4405 13-56 U/L Normal ALT 29 LAB L501.4600 0.20-1.00 mg/dL T Normal BILI 0.40 LAB L501.5300 136-145 mmol/L NA Normal 141 LAB L501.5600 3.5-5.1 mmol/L K Normal 3.9 LAB L501.5900 98-107 mmol/L CL Normal 104 LAB L501.6100 21.0-32.0 mmol/L Normal CO2 29.0 LAB L501.6200 5-15 Normal GAP 8 Performed By: #### L500.4050, L501.9520 #### [facility] [address] [facility] [place], [place], [id number] THYROID STIM HORMONE Collected: 2018 Status: F Source: [facility] 7:21 AM [facility] REPOSITORY TYPE CODE TESTS RESULT OUT OF RANGE REFERENCE UNITS LAB L501.9520 0.358-3.74 uIU/mL Normal TSH 0.74 Performed By: #### L500.4050, L501.9520 #### [facility] [address] [place], [place], [address] XR ANKLE MINIMUM 3 Observed: 02/03/2018 Status: F Source: [facility] LEFT 5:52 PM [facility] REPOSITORY ORIGINAL XR ANKLE MINIMUM 3 VIEWS LEFT CLINICAL STATEMENT: metatarsalgia. Left foot tendon dysfunction. Left ankle COMPARISON: None FINDINGS: There is likely pes planus. Chronic remodeling noted of the medial malleolus. There is extensive enthesopathy of the calcaneus. Corticated ossicles noted near the calcaneus. There is no acute fracture. Degenerative spurring seen of the visualized intertarsal joints. A small subtalar joint effusion visualized. IMPRESSION: 1. Degenerative changes in the mid and hindfoot. 2. Probable pes planus. Consider weightbearing radiographs. 3. Tibiotalar joint effusion Interpreted By: Travon Knapp MD Preliminary Report By: Travon Knapp MD Electronically Signed By: Travon Knapp MD Dictated Date: 02/04/2018 10:45:14 AM Prelim Date: 02/04/2018 10:45:14 AM Sign Date: 02/04/2018 10:46:40 AM XR FOOT MINIMUM 3 Observed: 02/03/2018 Status: F Source: [facility] LEFT 5:52 PM [facility] REPOSITORY ORIGINAL XR FOOT MINIMUM 3 VIEWS LEFT CLINICAL STATEMENT: metatarsalgia. Left foot tendon dysfunction. Left ankle COMPARISON: None FINDINGS: Flexion of the digits noted. Mild joint space loss and spurring seen of the first metatarsal-phalangeal joint. Enthesopathy noted. Corticated ossicles noted near the calcaneus. Degenerative ch anges seen in the midfoot and hindfoot. IMPRESSION: Degenerative changes. No acute osseous abnormality Interpreted By: Travon Knapp MD Preliminary Report By: Travon Knapp MD Electronically Signed By: Travon Knapp MD Dictated Date: 02/04/2018 10:53:17 AM Prelim Date: 02/04/2018 10:53:17 AM Sign Date: 02/04/2018 10:56:55 AM BREAST LIMITED Observed: 01/28/2018 Status: F Source: [place] UNILATERAL 2:49 PM [facility] REPOSITORY [facility] Imaging Services [address] [place] [address] Breast Limited Unilateral MR#: [id number] Acct: [id number] Name: NGOC MELOCA Param Rep #: [id number] : 1970 F 47 From: Jakub Kyle MD PCP: Sergio Silva DO Status: REG CLI Study: Breast Limited Unilateral Date of Exam: 01/28/18 Exam# [id number] Ordering Dr: Elisabeth Willoughby STUDY: ULTRASOUND BREAST - LEFT REASON FOR EXAM: Female, 47 years old. Nipple discharge in the left breast. TECHNIQUE: Axial and longitudinal images of the LEFT breast were performed with a high resolution ultrasound transducer. COMPARISON: Comparison is made with prior mammogram done earlier today. FINDINGS: LEFT Breast: The retroareolar region of the breast was examined by ultrasound. No sonographic abnormality is seen. US/Breast Limited Unilateral IMPRESSION: No sonographic abnormality is seen. ASSESSMENT CATEGORY: BIRADS Category 1: Negative. A letter regarding these results will be sent to the patient by the facility within 30 days. Electronically Signed: Jakub Kyle MD at 7:58 EDT Tel [phone], Service support , CC: MANJIT WILLOUGHBY; Sergio Silva DO Puppet Maker: Signed DIAG MAMM W/CAD, Observed: 01/28/2018 Status: F Source: [place] BILAT 2:13 PM [facility] REPOSITORY [facility] Imaging Services [facility] [place] [address] [place] [address] DIAG MAMM W/CAD, BILAT MR#: [id number] Acct: [id number] Name: PRAVIN MELO Rep #: [id number] : 1970 F 47 From: Jakub Kyle MD PCP: Sergio Silva DO Status: REG CLI Study: DIAG MAMM W/CAD, BILAT Date of Exam: 01/28/18 Exam# [id number] Ordering Dr: Elisabeth Willoughby MAMMOGRAPHY - BILATERAL DIAGNOSTIC REASON FOR EXAM: Female, 47 years old. 3 month history of the left breast nipple discharge. PERTINENT HISTORY: Aunt with breast cancer. TECHNIQUE: Digital bilateral breast luis (3D mammographic acquisition) in the CC and MLO projections. 2-D mediolateral oblique (MLO) and craniocaudad (CC) views of both breasts were obtained. CAD: Full Field Digital Mammography with Computer Added Detection was performed. COMPARISON: Comparison is made with prior study dated July 25, 2015 and January 08, 2017. FINDINGS: Breast Composition: The breasts are heterogeneously dense, which may obscure small masses. There are no dominant masses or suspicious calcifications. Stable bilateral benign appearing axillary lymph nodes. No other significant abnormalities are identified. There has been no significant change since the prior study. BI/DIAG MAMM W/CAD, BILAT IMPRESSION: Stable bilateral diagnostic mammogram. One year follow-up recommended. (A) ASSESSMENT CATEGORY: BIRADS Category 2: Benign. A letter regarding these results will be sent to the patient by the facility within 30 days. Approximately 10% of breast cancers are not detected by mammography. A normal mammogram should not delay biopsy of a clinically suspicious abnormality. Electronically Signed: Jakub Kyle MD at 15:57 EDT Tel [phone], Service support , CC: MANJIT WILLOUGHBY; Sergio Silva DO Puppet Maker: Signed COMPREHENSIVE METABOLIC Collected: 01/05/2018 Status: F Source: [place] PROFIL 9:31 AM [facility] REPOSITORY TYPE CODE TESTS RESULT OUT OF RANGE REFERENCE UNITS LAB L501.0100 74-106 mg/dL High GLU 120 Result Comment: Fasting Glucose result from 100 to 125 mg/dL suggests IMPAIRED HOMEOSTASIS per A.D.A. criteria. Please note revised GLUCOSE reference range effective 2017. LAB L501.1000 7-18 mg/dL High BUN 23 LAB L501.1100 0.55-1.02 mg/dL Normal CREAT,SERUM 0.75 Result Comment: The validity of the calculated GFR AND GFRAA in patients over 70 years has not been determined. Clinical correlation is essential. LAB L501.1110 >60 mL/min Normal EST GFR 87 Result Comment: Non- GFR Calc LAB L501.1115 >60 mL/min Normal EST GFR - AA 105 Result Comment: GFR Calc LAB L501.1300 10-20 RATIO High BUN/CRE 30.7 LAB L501.1500 6.4-8.2 g/dL T Normal PROT 7.5 LAB L501.1800 3.2-5.0 g/dL Normal ALB 3.7 LAB L501.1950 2.2-4.2 g/dL Normal GLOB 3.8 LAB L501.2000 0.9-2.4 RATIO Normal A/G 1.0 LAB L501.2200 8.5-10.1 mg/dL CA Normal 9.1 LAB L501.4100 15-37 U/L Normal AST 19 LAB L501.4305 45-117 U/L Normal ALK P 100 LAB L501.4405 13-56 U/L Normal ALT 26 LAB L501.4600 0.20-1.00 mg/dL T Normal BILI 0.40 LAB L501.5300 136-145 mmol/L NA Normal 140 LAB L501.5600 3.5-5.1 mmol/L K Normal 4.3 LAB L501.5900 98-107 mmol/L CL Normal 105 LAB L501.6100 21.0-32.0 mmol/L Normal CO2 28.0 LAB L501.6200 5-15 Normal GAP 7 Performed By: #### L500.4050 #### [facility] [address] [place], [address] CBC W/DIFF, AUTOMATED Collected: 01/05/2018 Status: F Source: [place] 9:31 AM [facility] REPOSITORY TYPE CODE TESTS RESULT OUT OF RANGE REFERENCE UNITS LAB L100.1000 4.4-11.0 K/mm3 Normal WBC 8.8 LAB L100.1200 4.2-5.4 M/mm3 Normal RBC 4.77 LAB L100.1300 12.0-15.0 g/dl Normal HGB 12.8 LAB L100.1400 37-47 % Normal HCT 40.1 LAB L100.1500 81-99 fL Normal MCV 84.1 LAB L100.1600 27.0-32.0 pg Low MCH 26.8 LAB L100.1700 32-36 g/gl Low MCHC 31.9 LAB L100.1810 11.6-14.6 % Normal RDW CV 13.9 LAB L100.1820 35.1-43.9 fl Normal RDW SD 42.9 LAB L100.1900 150-450 K/mm3 Normal PLT 251 LAB L100.2000 6.2-12.0 fl Normal MPV 10.2 LAB L100.2100 47-70 % Normal NEUT% 66.0 LAB L100.2200 19-41 % Normal LY% 25.7 LAB L100.2300 0-10 % Normal MONO% 6.5 LAB L100.2400 0-5 % Normal EO% 1.2 LAB L100.2500 0-1 % Normal BASO% 0.3 LAB L100.2550 0.0-0.9 % Normal IM GRAN % 0.300 Result Comment: IG% - Immature Granulocytes (promyelocytes, myelocytes and metamyelocytes) > 1% indicates that a LEFT SHIFT is Present. LAB L100.2620 2.0-7.7 X10 3/uL Normal Absolute Neut 5.8 LAB L100.2720 0.83-4.51 X10 3/ul Normal Absolute Lymph 2.27 Performed By: #### L100.0100 #### [facility] [address] [place], [place], [address] CBC W/DIFF, AUTOMATED Collected: 10/08/2017 Status: F Source: [place] 4:01 PM [facility] REPOSITORY TYPE CODE TESTS RESULT OUT OF RANGE REFERENCE UNITS LAB L100.1000 4.4-11.0 K/mm3 Normal WBC 10.2 LAB L100.1200 4.2-5.4 M/mm3 Normal RBC 4.91 LAB L100.1300 12.0-15.0 g/dl Normal HGB 13.5 LAB L100.1400 37-47 % Normal HCT 40.5 LAB L100.1500 81-99 fL Normal MCV 82.5 LAB L100.1600 27.0-32.0 pg Normal MCH 27.5 LAB L100.1700 32-36 g/gl Normal MCHC 33.3 LAB L100.1810 11.6-14.6 % Normal RDW CV 14.0 LAB L100.1820 35.1-43.9 fl Normal RDW SD 41.0 LAB L100.1900 150-450 K/mm3 Normal PLT 233 LAB L100.2000 6.2-12.0 fl Normal MPV 11.2 LAB L100.2100 47-70 % Normal NEUT% 69.3 LAB L100.2200 19-41 % Normal LY% 19.5 LAB L100.2300 0-10 % Normal MONO% 8.1 LAB L100.2400 0-5 % Normal EO% 2.0 LAB L100.2500 0-1 % Normal BASO% 0.5 LAB L100.2550 0.0-0.9 % Normal IM GRAN % 0.600 Result Comment: IG% - Immature Granulocytes (promyelocytes, myelocytes and metamyelocytes) > 1% indicates that a LEFT SHIFT is Present. LAB L100.2620 2.0-7.7 X10 3/uL Normal Absolute Neut 7.1 LAB L100.2720 0.83-4.51 X10 3/ul Normal Absolute Lymph 1.99 Performed By: #### L100.0100 #### [facility] [address] [place], [address] COMPREHENSIVE METABOLIC Collected: 10/08/2017 Status: F Source: [facility] 4:01 PM [facility] REPOSITORY TYPE CODE TESTS RESULT OUT OF RANGE REFERENCE UNITS LAB L501.0100 70-110 mg/dL Normal GLU 98 LAB L501.1000 7-18 mg/dL High BUN 20 LAB L501.1100 0.55-1.02 mg/dL Normal 0.80 CREAT,SERUM Result Comment: The validity of the calculated GFR AND GFRAA in patients over 70 years has not been determined. Clinical correlation is essential. LAB L501.1110 >60 mL/min Normal EST GFR 80 Result Comment: Non- GFR Calc LAB L501.1115 >60 mL/min Normal EST GFR - AA 97 Result Comment: GFR Calc LAB L501.1300 10-20 RATIO High BUN/CRE 24.9 LAB L501.1500 6.4-8.2 g/dL T Normal PROT 7.7 LAB L501.1800 3.2-5.0 g/dL Normal ALB 3.8 LAB L501.1950 2.2-4.2 g/dL Normal GLOB 3.9 LAB L501.2000 0.9-2.4 RATIO Normal A/G 1.0 LAB L501.2200 8.5-10.1 mg/dL CA Normal 9.4 LAB L501.4100 15-37 U/L Normal AST 19 LAB L501.4305 45-117 U/L Normal ALK P 93 LAB L501.4405 13-56 U/L Normal ALT 29 Result Comment: Please note revised ALT reference range effective 2017. LAB L501.4600 0.20-1.00 mg/dL Normal T BILI 0.50 LAB L501.5300 136-145 mmol/L Normal NA 137 LAB L501.5600 3.5-5.1 mmol/L Normal K 4.0 LAB L501.5900 98-107 mmol/L Normal CL 101 LAB L501.6100 21.0-32.0 mmol/L Normal CO2 26.0 LAB L501.6200 5-15 Normal GAP 10 Performed By: #### L500.4050 #### [facility] [address] [place], [place] [address] [place], [address] ALLERGIES ALLERGIES No Allergies Records FoundENCOUNTERS ENCOUNTERS ADMIT/DISCHARGE ACCOUNT NUMBER ADMITTING ENCOUNTER LOCATION SOURCE CLASS 09/23/2018 [id number] [facility] ding:MTLAB Repository 08/14/2018 [id number] [facility] ding:OPBI Repository 06/20/2018 [id number] [facility] ding:LAB Repository 05/15/2018 [id number] [facility] ding:MTLAB Repository 04/11/2018 [id number] Ambulatory [facility] ding:LAB Repository 2018 [id number] Ambulatory [facility] ding:MTLAB Repository 02/03/2018/02/04/20 [id number] Ambulatory [address] ding:RAD Foundation Repository 01/28/2018 [id number] [facility] 01/05/2018 [id number] Ambulatory [facility] ding:MTLAB Repository 10/08/2017 [id number] Ambulatory [facility] ding:MTLAB Repository PAYERS PAYERS ENCOUNTER GUARANTOR PAYER SUBSCRIBER SOURCE 09/23/2018 ULYSSES Gunter Primary PRAVIN S [place] [id number] Insurance:ANTHEMPolicy OLLERDOB: [facility] LORIE [place]: [id number] [id number] Repository [address]Zyx: 330) Date:2721-29-04JV [phone] () [address]145[address]ULIY[place]K, [place] [address]FA: 09/23/2018 Secondary NOT GIVENUNK [place] Insurance:SELF PAY [facility] Number: Effective Repository Date:2018-09-23 08/14/2018 ULYSSES E Primary PRAVIN S [place] [id number] Insurance:ANTHEMPolicy OLLERDOB: [facility] LORIE Number: [id number], [place] [id number] Repository [address]Olo: ([phone]) Date:0604-85-91DZ [phone] () 550276JXGUFDG, [place] [address]GQ: 08/14/2018 Secondary NOT GIVENUNK [place] Insurance:SELF PAY [facility] Number: Effective Repository Date:2018-08-04 06/20/2018 ULYSSES E Primary PRAVIN S [place] [id number] Insurance:ANTHEMPolicy OLLERDOB: [facility] LORIE Number: [id number], [place] [id number] Repository [address]Eox: ([phone]) Date:9765-64-94HR [phone] () 458258TRLKWWH, [place] [address]TZ: 06/20/2018 Secondary NOT GIVENUNK [place] Insurance:SELF PAY [facility] Number: Effective Repository Date:2018-06-20 05/15/2018 ULYSSES E Primary PRAVIN S [place] [id number] Insurance:ANTHEMPolicy OLLERDOB: Community LORIE Number: [id number], [place] [id number] Repository [address]Hnb: (330) Date:9080-27-46EG [phone] () 571013UOGLPCL, [place] [address]QV: 05/15/2018 Secondary NOT GIVENUNK [place] Insurance:SELF PAY [facility] Number: Effective Repository Date:2018-05-15 04/11/2018 Ulysses Primary PRAVIN S [place] [id number] Insurance:ANTHEMPolicy OLLERDOB: Community Lorie Number: [id number] [place] [id number] Repository [address]Ifj: (330) Date:5055-73-75PB [phone] () 461656UGTVQTX, [place] [address]JS: 04/11/2018 Secondary NOT GIVENUNK [place] Insurance:SELF PAY [facility] Number: Effective Repository Date:2018-04-11 2018 Ulysses Primary PRAVIN S [place] [id number] Insurance:ANTHEMPolicy OLLERDOB: Community [place] Number: [id number] [place] [id number] Repository [address]Qyz: (330) Date:8642-44-34ZK [phone] () [id number], [place] [address]IG: 2018 Secondary NOT GIVENUNK [place] Insurance:SELF PAY [facility] Number: Effective Repository Date:2018 02/03/2018 PRAVIN S Primary PRAVIN S [facility] OLLERDOB: Insurance:ANTHEM BLUE OLLERDOB: [facility] [id number] [facility] [id number] Repository LORIE Number: [address] [place], [place] [id number] [place], [place] [address]Tss: (330) Date:2018-02-03Tel: [id number] [phone] ()Tel: (330) Name:BPO [address] () () [address]Chewcfm [place] [phone] () [address]BL: 01/28/2018 Ulysses Primary PRAVIN S [place] [id number] Insurance:ANTHEMPolicy OLLERDOB: Community [place] Number: [id number] [place], [place] [id number] Repository [address]Opr: (330) Date:2339-42-63AB [phone] () [id number] [place] [address]OQ: 01/28/2018 Secondary NOT GIVENUNK [place] Insurance:SELF PAY [facility] Number: Effective Repository Date:2018-01-22 01/05/2018 Ulysses Primary Pravin S [place] [id number] Insurance:ANTHEMPolicy OllerDOB: Community [place] Number: [id number] [place] [id number] Repository [address]Agc: (330) Date:2389-48-79WF [phone] () [id number], [place] [address]QW: 01/05/2018 Secondary NOT GIVENUNK [place] Insurance:SELF PAY [facility] Number: Effective Repository Date:2018-01-05 10/08/2017 Ulysses Primary Pravin S [place] [id number] Insurance:ANTHEMPolicy OllerDOB: Community [place] Number: [id number] [place] [id number] Repository [address]Vtf: 330 Date:0396-15-65KR [phone] () 581839SSKCKSC, [place] [address]QZ: 10/08/2017 Secondary NOT GIVENUNK [place] Insurance:SELF PAY [facility] Effective Repository Date:2017-10-08
== END ==
PROVIDERS: Family Provider Preventive Medicine Occupational Medicine; PCP Preventive Medicine Occupational Medicine; Referring Provider Internal Medicine Rheumatology; Visit Provider Internal Medicine Rheumatology
DX: M06.09 Rheumatoid arthritis without rheumatoid factor, multiple sites (principal); Z79.899 Other long term (current) drug therapy; M79.7 Fibromyalgia; M17.0 Bilateral primary osteoarthritis of knee; E11.9 Type 2 diabetes mellitus without complications; E78.2 Mixed hyperlipidemia
CPT/HCPCS: 36415; 80053; 80061; 83036; 85025

== ENCOUNTER → 2018-10-31 08:42 | Outpatient (CLI) | payer BC, SELFPAY ==
[2018-10-31 10:50] LABS: BUN 24 mg/dL (7-18); Glucose 121 mg/dL (74-106)
[2018-10-31 10:51] LABS: ALB/GLOB Ratio 1.3 RATIO (0.9-2.4); AST(SGOT) 27 U/L (15-37); Alanine Aminotransfer ALT/SGPT 29 U/L (13-56); Alkaline Phosphatase 87 U/L (45-117); Anion Gap 8 (5-15); BUN/Creat Ratio 29.9 RATIO (10-20); Calcium,Total 8.6 mg/dL (8.5-10.1); Chloride 107 mmol/L (98-107); EST Glomerular Filtration Rate 80 mL/min (>60); Est Glom Filt Rate - Afr Amer 97 mL/min (>60); Globulin 3.1 g/dL (2.2-4.2); Potassium 3.8 mmol/L (3.5-5.1); Protein, Total 7.1 g/dL (6.4-8.2); Sodium Level 139 mmol/L (136-145); Thyroid Stim Hormone (TSH) 0.06 uIU/mL (0.358-3.74)
[2018-10-31 11:00] LABS: Hemoglobin A1c 6.9 % (4.2-6.3)
[2018-11-02 10:35] LABS: Vitamin D,25 Hydroxy 42.8 ng/mL (29.95-100.01)
== END ==
PROVIDERS: Family Provider Preventive Medicine Occupational Medicine; PCP Preventive Medicine Occupational Medicine
DX: E11.65 Type 2 diabetes mellitus with hyperglycemia (principal); E04.1 Nontoxic single thyroid nodule; E55.9 Vitamin D deficiency, unspecified; E03.8 Other specified hypothyroidism; E78.2 Mixed hyperlipidemia
CPT/HCPCS: 36415; 80053; 82306; 83036; 84443

== ENCOUNTER → 2018-12-19 08:40 | Outpatient (CLI) | payer BC, SELFPAY ==
[2018-12-19 09:44] LABS: Absolute Lymphocyte Count 1.29 X10^3/ul (0.83-4.51); Absolute Neutrophil Count 3.6 X10^3/uL (2.0-7.7); Basophil# 0.02 X10^3/uL; Basophil% 0.4 % (0-1); Eosinophil# 0.13 X10^3/uL; Eosinophils% 2.3 % (0-5); Lymphocyte # 1.29 X10^3/ul (4.0); Lymphocyte % 22.7 % (19-41); Mean Corp Hgb Conc 33.3 g/gl (32-36); Mean Corpuscular Hgb 27.3 pg (27.0-32.0); Mean Corpuscular Volume 81.9 fL (81-99); Mean Platelet Vol. 10.7 fl (6.2-12.0); Monocyte# 0.59 X10^3/uL; Monocyte% 10.4 % (0-10); Neutrophil # 3.63 X10^3/uL (2.7-7.7); Neutrophil % 63.7 % (47-70); Platelet Count 221 K/mm3 (150-450); RBC Distribution Width CV 13.5 % (11.6-14.6); RBC Distribution Width SD 39.6 fl (35.1-43.9); Red Blood Count 4.76 M/mm3 (4.2-5.4); White Blood Count 5.7 K/mm3 (4.4-11.0)
[2018-12-19 09:45] LABS: POSITIVE COUNT NO; POSITIVE DIFFERENTIAL NO; POSITIVE MORPHOLOGY NO
[2018-12-19 10:04] LABS: Microalbumin,Random Urine 13.1 mg/L (NO RANGE EST.); Microalbumin:Creatinine Ratio 6.3 mg/g CRE (<30 mg/g CRE)
[2018-12-19 10:27] LABS: Hemoglobin A1c 6.9 % (4.2-6.3)
[2018-12-19 10:36] LABS: ALB/GLOB Ratio 1.2 RATIO (0.9-2.4); AST(SGOT) 33 U/L (15-37); Alanine Aminotransfer ALT/SGPT 34 U/L (13-56); Albumin, Serum 3.8 g/dL (3.2-5.0); Alkaline Phosphatase 91 U/L (45-117); Anion Gap 6 (5-15); BUN 19 mg/dL (7-18); BUN/Creat Ratio 23.3 RATIO (10-20); Calcium,Total 8.7 mg/dL (8.5-10.1); Chloride 107 mmol/L (98-107); Creatinine, Serum 0.82 mg/dL (0.55-1.02); EST Glomerular Filtration Rate 79 mL/min (>60); Est Glom Filt Rate - Afr Amer 95 mL/min (>60); Globulin 3.2 g/dL (2.2-4.2); Glucose 134 mg/dL (74-106); Potassium 4.1 mmol/L (3.5-5.1); Sodium Level 139 mmol/L (136-145); Thyroid Stim Hormone (TSH) 0.87 uIU/mL (0.358-3.74)
== END ==
PROVIDERS: Family Provider Preventive Medicine Occupational Medicine; PCP Preventive Medicine Occupational Medicine; Referring Provider Internal Medicine Rheumatology; Visit Provider Internal Medicine Rheumatology
DX: M06.09 Rheumatoid arthritis without rheumatoid factor, multiple sites (principal); M79.7 Fibromyalgia; M17.0 Bilateral primary osteoarthritis of knee; M21.40 Flat foot [pes planus] (acquired), unspecified foot; K21.0 Gastro-esophageal reflux disease with esophagitis; K76.0 Fatty (change of) liver, not elsewhere classified; E11.9 Type 2 diabetes mellitus without complications; I10 Essential (primary) hypertension; E03.8 Other specified hypothyroidism; E28.2 Polycystic ovarian syndrome; N80.0 Endometriosis of uterus; G25.81 Restless legs syndrome; Z79.899 Other long term (current) drug therapy
CPT/HCPCS: 36415; 80053; 82043; 82570; 83036; 84443; 85025

== ENCOUNTER → 2019-03-27 08:43 | Outpatient (CLI) | payer BC, SELFPAY ==
[2019-03-27 09:08] LABS: Absolute Lymphocyte Count 1.98 X10^3/uL (0.83-4.51); Absolute Neutrophil Count 4.1 X10^3/uL (2.0-7.7); Basophil# 0.05 X10^3/uL; Basophil% 0.7 % (0-1); Eosinophil# 0.12 X10^3/uL; Eosinophils% 1.7 % (0-5); Hematocrit 39.7 % (37-47); Hemoglobin 13.2 g/dL (12.0-15.0); Lymphocyte # 1.98 X10^3/ul (4.0); Lymphocyte % 28.2 % (19-41); Mean Corp Hgb Conc 33.2 g/dL (32-36); Mean Corpuscular Hgb 27.7 pg (27.0-32.0); Mean Corpuscular Volume 83.2 fL (81-99); Mean Platelet Vol. 10.3 fl (6.2-12.0); Monocyte# 0.71 X10^3/uL; Monocyte% 10.1 % (0-10); NRBC Flagged by Analyzer 0 % (0-5); Neutrophil % 58.4 % (47-70); Platelet Count 237 K/mm3 (150-450); RBC Distribution Width CV 12.7 % (11.6-14.6); RBC Distribution Width SD 38.4 fl (35.1-43.9); Red Blood Count 4.77 M/mm3 (4.2-5.4)
[2019-03-27 09:38] LABS: ALB/GLOB Ratio 1.2 RATIO (0.9-2.4); AST(SGOT) 28 U/L (15-37); Alanine Aminotransfer ALT/SGPT 30 U/L (13-56); Albumin, Serum 3.9 g/dL (3.2-5.0); Alkaline Phosphatase 98 U/L (45-117); Anion Gap 8 (5-15); BUN 17 mg/dL (7-18); BUN/Creat Ratio 20.7 RATIO (10-20); Calcium,Total 9.1 mg/dL (8.5-10.1); Chloride 106 mmol/L (98-107); Creatinine, Serum 0.82 mg/dL (0.55-1.02); EST Glomerular Filtration Rate 78 mL/min (>60); Est Glom Filt Rate - Afr Amer 94 mL/min (>60); Globulin 3.2 g/dL (2.2-4.2); Glucose 135 mg/dL (74-106); Potassium 4.2 mmol/L (3.5-5.1); Protein, Total 7.1 g/dL (6.4-8.2); Sodium Level 141 mmol/L (136-145)
== END ==
PROVIDERS: Family Provider Preventive Medicine Occupational Medicine; PCP Preventive Medicine Occupational Medicine; Referring Provider Internal Medicine Rheumatology; Visit Provider Internal Medicine Rheumatology
DX: M06.09 Rheumatoid arthritis without rheumatoid factor, multiple sites (principal); M17.0 Bilateral primary osteoarthritis of knee; M21.40 Flat foot [pes planus] (acquired), unspecified foot; K76.0 Fatty (change of) liver, not elsewhere classified; M79.7 Fibromyalgia; E11.9 Type 2 diabetes mellitus without complications; I10 Essential (primary) hypertension; K21.0 Gastro-esophageal reflux disease with esophagitis; Z79.899 Other long term (current) drug therapy
CPT/HCPCS: 36415; 80053; 85025

== ENCOUNTER → 2019-05-09 09:57 | Outpatient (CLI) | payer BC, SELFPAY ==
[2019-05-09 10:44] LABS: ALB/GLOB Ratio 1.1 RATIO (0.9-2.4); AST(SGOT) 33 U/L (15-37); Alanine Aminotransfer ALT/SGPT 36 U/L (13-56); Albumin, Serum 3.7 g/dL (3.2-5.0); Alkaline Phosphatase 106 U/L (45-117); Anion Gap 5 (5-15); BUN 14 mg/dL (7-18); BUN/Creat Ratio 16.1 RATIO (10-20); Chloride 106 mmol/L (98-107); Creatinine, Serum 0.87 mg/dL (0.55-1.02); EST Glomerular Filtration Rate 73 mL/min (>60); Est Glom Filt Rate - Afr Amer 89 mL/min (>60); Globulin 3.5 g/dL (2.2-4.2); Glucose 169 mg/dL (74-106); Protein, Total 7.2 g/dL (6.4-8.2); Sodium Level 138 mmol/L (136-145); Thyroid Stim Hormone (TSH) 0.37 uIU/mL (0.358-3.74)
== END ==
PROVIDERS: Family Provider Preventive Medicine Occupational Medicine; PCP Preventive Medicine Occupational Medicine; Visit Provider Internal Medicine Endocrinology, Diabetes & Metabolism
DX: E11.9 Type 2 diabetes mellitus without complications (principal); E03.8 Other specified hypothyroidism
CPT/HCPCS: 36415; 80053; 84443

== ENCOUNTER → 2019-06-21 16:52 | Outpatient (CLI) | payer BC, SELFPAY ==
[2019-06-21 17:35] LABS: Absolute Lymphocyte Count 1.74 X10^3/uL (0.83-4.51); Absolute Neutrophil Count 4.6 X10^3/uL (2.0-7.7); Basophil# 0.05 X10^3/uL; Basophil% 0.7 % (0-1); Eosinophil# 0.14 X10^3/uL; Eosinophils% 1.9 % (0-5); Hematocrit 37.1 % (37-47); Hemoglobin 12.1 g/dL (12.0-15.0); Lymphocyte # 1.74 X10^3/ul (4.0); Mean Corp Hgb Conc 32.6 g/dL (32-36); Mean Corpuscular Hgb 27.2 pg (27.0-32.0); Mean Corpuscular Volume 83.4 fL (81-99); Mean Platelet Vol. 10.4 fl (6.2-12.0); Monocyte# 0.61 X10^3/uL; Monocyte% 8.4 % (0-10); NRBC Flagged by Analyzer 0 % (0-5); Neutrophil # 4.64 X10^3/uL (2.7-7.7); Neutrophil % 64.2 % (47-70); Platelet Count 215 K/mm3 (150-450); RBC Distribution Width CV 14.2 % (11.6-14.6); RBC Distribution Width SD 42.8 fl (35.1-43.9); Red Blood Count 4.45 M/mm3 (4.2-5.4); White Blood Count 7.2 K/mm3 (4.4-11.0)
[2019-06-21 18:25] LABS: ALB/GLOB Ratio 1.2 RATIO (0.9-2.4); AST(SGOT) 25 U/L (15-37); Alanine Aminotransfer ALT/SGPT 33 U/L (13-56); Albumin, Serum 3.8 g/dL (3.2-5.0); Alkaline Phosphatase 89 U/L (45-117); Anion Gap 6 (5-15); BUN 14 mg/dL (7-18); BUN/Creat Ratio 14.7 RATIO (10-20); Calcium,Total 8.5 mg/dL (8.5-10.1); Chloride 106 mmol/L (98-107); Creatinine, Serum 0.95 mg/dL (0.55-1.02); EST Glomerular Filtration Rate 66 mL/min (>60); Est Glom Filt Rate - Afr Amer 80 mL/min (>60); Globulin 3.3 g/dL (2.2-4.2); Glucose 131 mg/dL (74-106); Potassium 3.5 mmol/L (3.5-5.1); Protein, Total 7.1 g/dL (6.4-8.2); Sodium Level 139 mmol/L (136-145)
== END ==
PROVIDERS: Family Provider Preventive Medicine Occupational Medicine; PCP Preventive Medicine Occupational Medicine; Referring Provider Internal Medicine Rheumatology; Visit Provider Internal Medicine Rheumatology
DX: M06.09 Rheumatoid arthritis without rheumatoid factor, multiple sites (principal); M17.0 Bilateral primary osteoarthritis of knee; M21.40 Flat foot [pes planus] (acquired), unspecified foot; K76.0 Fatty (change of) liver, not elsewhere classified; E11.9 Type 2 diabetes mellitus without complications; I10 Essential (primary) hypertension; E03.9 Hypothyroidism, unspecified; M79.7 Fibromyalgia; G25.81 Restless legs syndrome; E28.2 Polycystic ovarian syndrome; G47.33 Obstructive sleep apnea (adult) (pediatric); N80.0 Endometriosis of uterus; K21.0 Gastro-esophageal reflux disease with esophagitis; Z79.899 Other long term (current) drug therapy
CPT/HCPCS: 36415; 80053; 85025

== ENCOUNTER → 2019-08-21 08:27 | Outpatient (CLI) | payer BC, SELFPAY ==
[2019-08-21 09:54] LABS: Absolute Lymphocyte Count 1.75 X10^3/uL (0.83-4.51); Absolute Neutrophil Count 4.1 X10^3/uL (2.0-7.7); Basophil# 0.06 X10^3/uL; Basophil% 0.9 % (0-1); Eosinophil# 0.18 X10^3/uL; Eosinophils% 2.7 % (0-5); Hematocrit 38.8 % (37-47); Hemoglobin 12.8 g/dL (12.0-15.0); Lymphocyte # 1.75 X10^3/ul (4.0); Lymphocyte % 26.2 % (19-41); Mean Corpuscular Hgb 27.8 pg (27.0-32.0); Mean Corpuscular Volume 84.3 fL (81-99); Mean Platelet Vol. 10.7 fl (6.2-12.0); Monocyte# 0.56 X10^3/uL; Monocyte% 8.4 % (0-10); NRBC Flagged by Analyzer 0 % (0-5); Neutrophil # 4.09 X10^3/uL (2.7-7.7); Neutrophil % 61.2 % (47-70); Platelet Count 238 K/mm3 (150-450); RBC Distribution Width CV 13.1 % (11.6-14.6); RBC Distribution Width SD 40.3 fl (35.1-43.9); White Blood Count 6.7 K/mm3 (4.4-11.0)
[2019-08-21 10:10] LABS: Hemoglobin A1c 7.6 % (4.2-6.3)
[2019-08-21 11:05] LABS: ALB/GLOB Ratio 1.1 RATIO (0.9-2.4); AST(SGOT) 19 U/L (15-37); Alanine Aminotransfer ALT/SGPT 31 U/L (13-56); Albumin, Serum 3.8 g/dL (3.2-5.0); Alkaline Phosphatase 89 U/L (45-117); Anion Gap 5 (5-15); BUN 18 mg/dL (7-18); BUN/Creat Ratio 23.2 RATIO (10-20); Calcium,Total 8.8 mg/dL (8.5-10.1); Chloride 107 mmol/L (98-107); Creatinine, Serum 0.78 mg/dL (0.55-1.02); EST Glomerular Filtration Rate 83 mL/min (>60); Est Glom Filt Rate - Afr Amer 100 mL/min (>60); Globulin 3.4 g/dL (2.2-4.2); Glucose 161 mg/dL (74-106); Potassium 3.9 mmol/L (3.5-5.1); Protein, Total 7.2 g/dL (6.4-8.2); Sodium Level 138 mmol/L (136-145); Thyroid Stim Hormone (TSH) 0.95 uIU/mL (0.358-3.74)
== END ==
PROVIDERS: Family Provider Preventive Medicine Occupational Medicine; PCP Preventive Medicine Occupational Medicine; Referring Provider Internal Medicine Rheumatology; Visit Provider Internal Medicine Rheumatology
DX: E11.9 Type 2 diabetes mellitus without complications (principal); E03.8 Other specified hypothyroidism; M06.09 Rheumatoid arthritis without rheumatoid factor, multiple sites; M79.7 Fibromyalgia; M17.0 Bilateral primary osteoarthritis of knee; Z79.899 Other long term (current) drug therapy
CPT/HCPCS: 36415; 80053; 83036; 84443; 85025

== ENCOUNTER → 2019-08-30 15:29 | Outpatient (CLI) | payer BC, SELFPAY ==
--- NOTE | 2019-08-30 15:35 | BI_ITS ---
MAMMOGRAPHY - BILATERAL DIAGNOSTIC REASON FOR EXAM: Female, 49 years old. Whitish left breast discharge for 3 months PERTINENT HISTORY: Paternal aunt with breast cancer. TECHNIQUE: Digital examination. Mediolateral oblique (MLO) and craniocaudad (CC) views of both breasts were obtained. CAD: CAD was performed on this study. COMPARISON: 08/14/2018, FINDINGS: Breast Composition: The breasts are heterogeneously dense, which may obscure small masses. Stable left intramammary lymph node along the upper outer quadrant. There are no dominant masses or suspicious calcifications. No other significant abnormalities are identified. BI/DIAG MAMM W/CAD, BILAT IMPRESSION: Stable bilateral diagnostic mammogram. One year follow-up recommended. ASSESSMENT CATEGORY: BIRADS Category 2: Benign. A letter regarding these results will be sent to the patient by the facility within 30 days. FOLLOW UP RECOMMENDATION: Yearly follow up mammogram recommended. (A) Approximately 10% of breast cancers are not detected by mammography. A normal mammogram should not delay biopsy of a clinically suspicious abnormality. Electronically Signed: Ángel Zarate MD at 14:41 EST Tel [phone], Service support ,
== END ==
PROVIDERS: Family Provider Preventive Medicine Occupational Medicine; PCP Preventive Medicine Occupational Medicine
DX: N64.52 Nipple discharge (principal)
CPT/HCPCS: 77062; 77066; G0279

== ENCOUNTER → 2019-10-13 08:48 | Outpatient (CLI) | payer BC, SELFPAY ==
[2019-10-13 10:27] LABS: Anion Gap 5 (5-15); BUN 15 mg/dL (7-18); BUN/Creat Ratio 15.8 RATIO (10-20); Chloride 108 mmol/L (98-107); Creatinine, Serum 0.95 mg/dL (0.55-1.02); EST Glomerular Filtration Rate 66 mL/min (>60); Est Glom Filt Rate - Afr Amer 80 mL/min (>60); Glucose 147 mg/dL (74-106); Potassium 3.8 mmol/L (3.5-5.1); Sodium Level 140 mmol/L (136-145); Thyroid Stim Hormone (TSH) 1.03 uIU/mL (0.358-3.74)
== END ==
PROVIDERS: PCP Preventive Medicine Occupational Medicine; Referring Provider Internal Medicine Endocrinology, Diabetes & Metabolism; Visit Provider Internal Medicine Endocrinology, Diabetes & Metabolism
DX: E03.8 Other specified hypothyroidism (principal); E11.65 Type 2 diabetes mellitus with hyperglycemia
CPT/HCPCS: 36415; 80048; 84443

== ENCOUNTER → 2019-11-26 11:18 | Outpatient (CLI) | payer BC, SELFPAY ==
[2019-11-26 15:51] LABS: Absolute Neutrophil Count 5.1 X10^3/uL (2.0-7.7); Basophil# 0.05 X10^3/uL; Basophil% 0.6 % (0-1); Eosinophil# 0.17 X10^3/uL; Eosinophils% 2.2 % (0-5); Hematocrit 38.5 % (37-47); Hemoglobin 12.3 g/dL (12.0-15.0); Lymphocyte % 20.8 % (19-41); Mean Corp Hgb Conc 31.9 g/dL (32-36); Mean Corpuscular Hgb 27.2 pg (27.0-32.0); Mean Platelet Vol. 10.7 fl (6.2-12.0); Monocyte# 0.66 X10^3/uL; Monocyte% 8.6 % (0-10); NRBC Flagged by Analyzer 0 % (0-5); Neutrophil # 5.13 X10^3/uL (2.7-7.7); Neutrophil % 66.5 % (47-70); Platelet Count 207 K/mm3 (150-450); RBC Distribution Width CV 13.8 % (11.6-14.6); RBC Distribution Width SD 42.3 fl (35.1-43.9); Red Blood Count 4.53 M/mm3 (4.2-5.4); White Blood Count 7.7 K/mm3 (4.4-11.0)
[2019-11-26 15:58] LABS: AST(SGOT) 26 U/L (15-37); Alanine Aminotransfer ALT/SGPT 35 U/L (13-56); Albumin, Serum 3.6 g/dL (3.2-5.0); Alkaline Phosphatase 94 U/L (45-117); Anion Gap 8 (5-15); BUN 14 mg/dL (7-18); BUN/Creat Ratio 20.3 RATIO (10-20); Calcium,Total 8.6 mg/dL (8.5-10.1); Chloride 103 mmol/L (98-107); Creatinine, Serum 0.69 mg/dL (0.55-1.02); EST Glomerular Filtration Rate 95 mL/min (>60); Est Glom Filt Rate - Afr Amer 115 mL/min (>60); Globulin 3.6 g/dL (2.2-4.2); Glucose 123 mg/dL (74-106); Potassium 3.7 mmol/L (3.5-5.1); Protein, Total 7.2 g/dL (6.4-8.2); Sodium Level 137 mmol/L (136-145)
== END ==
PROVIDERS: PCP Preventive Medicine Occupational Medicine; Referring Provider Internal Medicine Rheumatology; Visit Provider Internal Medicine Rheumatology
DX: M06.09 Rheumatoid arthritis without rheumatoid factor, multiple sites (principal); M79.7 Fibromyalgia; M17.0 Bilateral primary osteoarthritis of knee; M21.40 Flat foot [pes planus] (acquired), unspecified foot; K21.0 Gastro-esophageal reflux disease with esophagitis; K76.0 Fatty (change of) liver, not elsewhere classified; E11.9 Type 2 diabetes mellitus without complications; Z79.899 Other long term (current) drug therapy
CPT/HCPCS: 36415; 80053; 85025

== ENCOUNTER → 2019-12-24 07:28 | Outpatient (CLI) | payer BC, SELFPAY ==
[2019-12-24 10:08] LABS: Microalbumin,Random Urine 16.7 mg/L (NO RANGE EST.); Microalbumin:Creatinine Ratio 12.5 mg/g CRE (<30 mg/g CRE)
[2019-12-24 10:17] LABS: ALB/GLOB Ratio 1.1 RATIO (0.9-2.4); AST(SGOT) 28 U/L (15-37); Alanine Aminotransfer ALT/SGPT 43 U/L (13-56); Albumin, Serum 3.9 g/dL (3.2-5.0); Alkaline Phosphatase 96 U/L (45-117); Anion Gap 7 (5-15); BUN 17 mg/dL (7-18); BUN/Creat Ratio 24.4 RATIO (10-20); Calcium,Total 9.1 mg/dL (8.5-10.1); Chloride 103 mmol/L (98-107); EST Glomerular Filtration Rate 94 mL/min (>60); Est Glom Filt Rate - Afr Amer 114 mL/min (>60); Globulin 3.5 g/dL (2.2-4.2); Glucose 179 mg/dL (74-106); Potassium 4.1 mmol/L (3.5-5.1); Protein, Total 7.4 g/dL (6.4-8.2); Sodium Level 138 mmol/L (136-145); Thyroid Stim Hormone (TSH) 1.48 uIU/mL (0.358-3.74)
[2019-12-24 10:30] LABS: Vitamin D,25 Hydroxy 38.8 ng/mL
[2019-12-24 10:32] LABS: Hemoglobin A1c 7.7 % (4.2-6.3)
== END ==
PROVIDERS: PCP Preventive Medicine Occupational Medicine; Referring Provider Internal Medicine Endocrinology, Diabetes & Metabolism; Visit Provider Internal Medicine Endocrinology, Diabetes & Metabolism
DX: E11.65 Type 2 diabetes mellitus with hyperglycemia (principal); E55.9 Vitamin D deficiency, unspecified
CPT/HCPCS: 36415; 80053; 82043; 82306; 82570; 83036; 84443

== ENCOUNTER → 2020-01-28 12:49 | Outpatient (CLI) | payer BC, SELFPAY ==
[2020-01-28 15:19] LABS: Color, Urine Yellow (Yellow); Glucose, Dipstick 1000 mg/dl (Normal); Ketone-Dipstick Negative (Negative); Leukocyte Esterase-Dipstick Negative /ul (Negative); Nitrite-Dipstick Negative (Negative); Occult Blood-Urine Negative /ul (Negative); Protein-Dipstick Negative (Negative); Urine Bilirubin Dipstick Negative (Negative); Urine Clarity Clear (Clear); Urine Urobilinogen Normal (Normal)
[2020-02-01 20:42] LABS: SAR-COV-2 IGG ANTIBODY Negative (Negative); SAR-COV-2 IGM ANTIBODY Negative (Negative)
== END ==
PROVIDERS: PCP Preventive Medicine Occupational Medicine; Referring Provider Preventive Medicine Occupational Medicine; Visit Provider Preventive Medicine Occupational Medicine
DX: Z20.828 Contact with and (suspected) exposure to other viral communicable diseases (principal); R39.9 Unspecified symptoms and signs involving the genitourinary system
CPT/HCPCS: 36415; 81002; 86769

== ENCOUNTER → 2020-02-12 07:05 | Outpatient (CLI) | payer BC, SELFPAY ==
[2020-02-12 08:01] LABS: Absolute Lymphocyte Count 2.22 X10^3/uL (0.83-4.51); Absolute Neutrophil Count 4.5 X10^3/uL (2.0-7.7); Basophil# 0.07 X10^3/uL; Basophil% 0.9 % (0-1); Eosinophil# 0.27 X10^3/uL; Eosinophils% 3.5 % (0-5); Hematocrit 41.5 % (37-47); Lymphocyte # 2.22 X10^3/ul (4.0); Lymphocyte % 28.8 % (19-41); Mean Corp Hgb Conc 31.3 g/dL (32-36); Mean Corpuscular Hgb 27.3 pg (27.0-32.0); Mean Corpuscular Volume 87.2 fL (81-99); Mean Platelet Vol. 10.5 fl (6.2-12.0); Monocyte# 0.61 X10^3/uL; Monocyte% 7.9 % (0-10); NRBC Flagged by Analyzer 0 % (0-5); Neutrophil # 4.49 X10^3/uL (2.7-7.7); Neutrophil % 58.4 % (47-70); Platelet Count 219 K/mm3 (150-450); RBC Distribution Width CV 13.2 % (11.6-14.6); RBC Distribution Width SD 41.1 fl (35.1-43.9); Red Blood Count 4.76 M/mm3 (4.2-5.4); White Blood Count 7.7 K/mm3 (4.4-11.0)
[2020-02-12 08:18] LABS: ALB/GLOB Ratio 1.1 RATIO (0.9-2.4); AST(SGOT) 21 U/L (15-37); Alanine Aminotransfer ALT/SGPT 35 U/L (13-56); Alkaline Phosphatase 113 U/L (45-117); Anion Gap 7 (5-15); BUN 14 mg/dL (7-18); BUN/Creat Ratio 16.8 RATIO (10-20); Calcium,Total 9.2 mg/dL (8.5-10.1); Chloride 104 mmol/L (98-107); Creatinine, Serum 0.84 mg/dL (0.55-1.02); EST Glomerular Filtration Rate 76 mL/min (>60); Est Glom Filt Rate - Afr Amer 92 mL/min (>60); Globulin 3.7 g/dL (2.2-4.2); Glucose 174 mg/dL (74-106); Potassium 4.1 mmol/L (3.5-5.1); Protein, Total 7.7 g/dL (6.4-8.2); Sodium Level 138 mmol/L (136-145)
== END ==
PROVIDERS: PCP Preventive Medicine Occupational Medicine; Referring Provider Internal Medicine Rheumatology; Visit Provider Internal Medicine Rheumatology
DX: M06.09 Rheumatoid arthritis without rheumatoid factor, multiple sites (principal); M79.7 Fibromyalgia; M17.0 Bilateral primary osteoarthritis of knee; M21.40 Flat foot [pes planus] (acquired), unspecified foot; K21.0 Gastro-esophageal reflux disease with esophagitis; K76.0 Fatty (change of) liver, not elsewhere classified; E11.9 Type 2 diabetes mellitus without complications; I10 Essential (primary) hypertension; E03.9 Hypothyroidism, unspecified; Z79.899 Other long term (current) drug therapy
CPT/HCPCS: 36415; 80053; 85025

== ENCOUNTER → 2020-03-01 12:17 | Outpatient (CLI) | payer BC, SELFPAY ==
[2020-03-01 16:24] LABS: Hemoglobin A1c 7.4 % (3.8-5.6)
[2020-03-01 16:34] LABS: ALB/GLOB Ratio 1.2 RATIO (0.9-2.4); AST(SGOT) 29 U/L (15-37); Alanine Aminotransfer ALT/SGPT 39 U/L (13-56); Albumin, Serum 4.2 g/dL (3.2-5.0); Alkaline Phosphatase 98 U/L (45-117); Anion Gap 5 (5-15); BUN 19 mg/dL (7-18); Calcium,Total 9.1 mg/dL (8.5-10.1); Chloride 107 mmol/L (98-107); Creatinine, Serum 0.82 mg/dL (0.55-1.02); EST Glomerular Filtration Rate 77 mL/min (>60); Est Glom Filt Rate - Afr Amer 94 mL/min (>60); Globulin 3.4 g/dL (2.2-4.2); Glucose 113 mg/dL (74-106); Potassium 4.2 mmol/L (3.5-5.1); Protein, Total 7.6 g/dL (6.4-8.2); Sodium Level 140 mmol/L (136-145)
== END ==
PROVIDERS: PCP Preventive Medicine Occupational Medicine; Referring Provider Internal Medicine Endocrinology, Diabetes & Metabolism; Visit Provider Internal Medicine Endocrinology, Diabetes & Metabolism
DX: E11.65 Type 2 diabetes mellitus with hyperglycemia (principal)
CPT/HCPCS: 36415; 80053; 83036

== ENCOUNTER → 2020-04-19 07:35 | Outpatient (CLI) | payer BC, SELFPAY ==
[2020-04-19 10:08] LABS: Absolute Lymphocyte Count 2.38 X10^3/uL (0.83-4.51); Absolute Neutrophil Count 4.9 X10^3/uL (2.0-7.7); Basophil# 0.07 X10^3/uL; Basophil% 0.8 % (0-1); Eosinophils% 2.4 % (0-5); Hematocrit 42.3 % (37-47); Hemoglobin 13.1 g/dL (12.0-15.0); Lymphocyte # 2.38 X10^3/ul (4.0); Mean Corpuscular Hgb 26.4 pg (27.0-32.0); Mean Corpuscular Volume 85.3 fL (81-99); Mean Platelet Vol. 10.8 fl (6.2-12.0); Monocyte# 0.86 X10^3/uL; Monocyte% 10.1 % (0-10); NRBC Flagged by Analyzer 0 % (0-5); Neutrophil % 57.5 % (47-70); Platelet Count 250 K/mm3 (150-450); RBC Distribution Width CV 13.5 % (11.6-14.6); RBC Distribution Width SD 41.6 fl (35.1-43.9); Red Blood Count 4.96 M/mm3 (4.2-5.4); White Blood Count 8.5 K/mm3 (4.4-11.0)
[2020-04-19 11:07] LABS: AST(SGOT) 17 U/L (15-37); Alanine Aminotransfer ALT/SGPT 27 U/L (13-56); Albumin, Serum 3.6 g/dL (3.2-5.0); Alkaline Phosphatase 106 U/L (45-117); Anion Gap 6 (5-15); BUN 12 mg/dL (7-18); BUN/Creat Ratio 15.9 RATIO (10-20); Calcium,Total 8.8 mg/dL (8.5-10.1); Chloride 104 mmol/L (98-107); Creatinine, Serum 0.76 mg/dL (0.55-1.02); EST Glomerular Filtration Rate 86 mL/min (>60); Est Glom Filt Rate - Afr Amer 104 mL/min (>60); Globulin 3.5 g/dL (2.2-4.2); Glucose 114 mg/dL (74-106); Potassium 3.8 mmol/L (3.5-5.1); Protein, Total 7.1 g/dL (6.4-8.2); Sodium Level 137 mmol/L (136-145)
== END ==
PROVIDERS: PCP Preventive Medicine Occupational Medicine; Referring Provider Internal Medicine Rheumatology; Visit Provider Internal Medicine Rheumatology
DX: M06.09 Rheumatoid arthritis without rheumatoid factor, multiple sites (principal); Z79.899 Other long term (current) drug therapy; M79.7 Fibromyalgia; M17.0 Bilateral primary osteoarthritis of knee; M21.40 Flat foot [pes planus] (acquired), unspecified foot; K21.0 Gastro-esophageal reflux disease with esophagitis; K76.0 Fatty (change of) liver, not elsewhere classified; E11.9 Type 2 diabetes mellitus without complications; I10 Essential (primary) hypertension; E03.9 Hypothyroidism, unspecified; G47.33 Obstructive sleep apnea (adult) (pediatric); E28.2 Polycystic ovarian syndrome; N80.0 Endometriosis of uterus
CPT/HCPCS: 36415; 80053; 85025

== ENCOUNTER → 2020-05-03 09:30 | Outpatient (CLI) | payer BC, SELFPAY ==
[2020-05-03 12:50] LABS: Vitamin D,25 Hydroxy 45.6 ng/mL
[2020-05-03 12:57] LABS: Hemoglobin A1c 7.5 % (3.8-5.6)
[2020-05-03 12:58] LABS: ALB/GLOB Ratio 1.1 RATIO (0.9-2.4); AST(SGOT) 28 U/L (15-37); Alanine Aminotransfer ALT/SGPT 35 U/L (13-56); Albumin, Serum 3.8 g/dL (3.2-5.0); Alkaline Phosphatase 95 U/L (45-117); Anion Gap 7 (5-15); BUN 14 mg/dL (7-18); BUN/Creat Ratio 18.6 RATIO (10-20); Calcium,Total 8.6 mg/dL (8.5-10.1); Chloride 104 mmol/L (98-107); Cholesterol 195 mg/dL (200); Creatinine, Serum 0.75 mg/dL (0.55-1.02); EST Glomerular Filtration Rate 86 mL/min (>60); Est Glom Filt Rate - Afr Amer 104 mL/min (>60); Globulin 3.5 g/dL (2.2-4.2); Glucose 133 mg/dL (74-106); High Density Lipoprotein 56 mg/dL; Potassium 3.8 mmol/L (3.5-5.1); Protein, Total 7.3 g/dL (6.4-8.2); Sodium Level 137 mmol/L (136-145); Thyroid Stim Hormone (TSH) 1.46 uIU/mL (0.358-3.74); Triglycerides 122 mg/dL; Very Low Density Lipoprotein 24 mg/dL (5-40)
== END ==
PROVIDERS: PCP Preventive Medicine Occupational Medicine; Referring Provider Internal Medicine Endocrinology, Diabetes & Metabolism; Visit Provider Internal Medicine Endocrinology, Diabetes & Metabolism
DX: E11.65 Type 2 diabetes mellitus with hyperglycemia (principal); E78.2 Mixed hyperlipidemia; E55.9 Vitamin D deficiency, unspecified
CPT/HCPCS: 36415; 80053; 80061; 82306; 83036; 84443

== ENCOUNTER → 2020-05-25 | Outpatient (CLI) | payer BC, SELFPAY | END | disposition home or self-care (01) | LOC: LABSPEC 17:16 | PROVIDERS: Referring Provider Family Medicine; Visit Provider Family Medicine | DX: Z03.818 Encounter for observation for suspected exposure to other biological agents ruled out (principal) | CPT/HCPCS: 87635; U0003 ==

== ENCOUNTER → 2020-06-08 | Outpatient (CLI) | payer BC, SELFPAY | END | disposition home or self-care (01) | LOC: LABSPEC 13:10 | PROVIDERS: Referring Provider Family Medicine; Visit Provider Family Medicine | DX: Z11.59 Encounter for screening for other viral diseases (principal) | CPT/HCPCS: 87635; U0003 ==

== ENCOUNTER → 2020-06-22 | Outpatient (CLI) | payer BC, SELFPAY | END | disposition home or self-care (01) | LOC: LABSPEC 12:25 | PROVIDERS: Referring Provider Family Medicine; Visit Provider Family Medicine | DX: Z03.818 Encounter for observation for suspected exposure to other biological agents ruled out (principal) | CPT/HCPCS: 87635; U0003 ==

== ENCOUNTER → 2020-07-06 | Outpatient (CLI) | payer BC, SELFPAY | END | disposition home or self-care (01) | LOC: LABSPEC 10:35 | PROVIDERS: Referring Provider Family Medicine; Visit Provider Family Medicine | DX: Z03.818 Encounter for observation for suspected exposure to other biological agents ruled out (principal) | CPT/HCPCS: 87635; U0003 ==

== ENCOUNTER → 2020-07-20 | Outpatient (CLI) | payer BC, SELFPAY | END | disposition home or self-care (01) | LOC: LABSPEC 12:17 | PROVIDERS: Referring Provider Family Medicine; Visit Provider Family Medicine | DX: Z03.818 Encounter for observation for suspected exposure to other biological agents ruled out (principal) | CPT/HCPCS: 87635; U0003 ==

== ENCOUNTER → 2020-08-01 15:05 | Outpatient (CLI) | payer BC, SELFPAY ==
[2020-08-01 17:51] LABS: Absolute Neutrophil Count 4.7 X10^3/uL (2.0-7.7); Basophil# 0.07 X10^3/uL; Basophil% 0.8 % (0-1); Eosinophil# 0.16 X10^3/uL; Eosinophils% 1.8 % (0-5); Hematocrit 43.3 % (37-47); Hemoglobin 13.7 g/dL (12.0-15.0); Lymphocyte % 35.8 % (19-41); Mean Corp Hgb Conc 31.6 g/dL (32-36); Mean Corpuscular Hgb 26.9 pg (27.0-32.0); Mean Corpuscular Volume 84.9 fL (81-99); Mean Platelet Vol. 11.2 fl (6.2-12.0); Monocyte# 0.61 X10^3/uL; NRBC Flagged by Analyzer 0 % (0-5); Neutrophil # 4.66 X10^3/uL (2.7-7.7); Neutrophil % 53.8 % (47-70); Platelet Count 246 K/mm3 (150-450); RBC Distribution Width CV 13.9 % (11.6-14.6); RBC Distribution Width SD 42.6 fl (35.1-43.9); White Blood Count 8.7 K/mm3 (4.4-11.0)
[2020-08-01 18:13] LABS: Vitamin B12 460 pg/mL (211-911); Vitamin D,25 Hydroxy 30.9 ng/mL
[2020-08-01 18:16] LABS: Hemoglobin A1c 7.2 % (3.8-5.6)
[2020-08-01 18:33] LABS: ALB/GLOB Ratio 1.1 RATIO (0.9-2.4); AST(SGOT) 25 U/L (15-37); Alanine Aminotransfer ALT/SGPT 39 U/L (13-56); Alkaline Phosphatase 116 U/L (45-117); Anion Gap 7 (5-15); BUN 15 mg/dL (7-18); BUN/Creat Ratio 17.1 RATIO (10-20); Calcium,Total 9.6 mg/dL (8.5-10.1); Chloride 106 mmol/L (98-107); Cholesterol 189 mg/dL (200); Creatinine, Serum 0.88 mg/dL (0.55-1.02); EST Glomerular Filtration Rate 72 mL/min (>60); Est Glom Filt Rate - Afr Amer 87 mL/min (>60); Globulin 3.7 g/dL (2.2-4.2); Glucose 149 mg/dL (74-106); High Density Lipoprotein 60 mg/dL; Iron 57 ug/dL (50-170); Protein, Total 7.7 g/dL (6.4-8.2); Sodium Level 140 mmol/L (136-145); Thyroid Stim Hormone (TSH) 1.34 uIU/mL (0.358-3.74); Triglycerides 254 mg/dL; Very Low Density Lipoprotein 51 mg/dL (5-40)
== END ==
PROVIDERS: PCP Preventive Medicine Occupational Medicine; Referring Provider Internal Medicine Rheumatology; Visit Provider Internal Medicine Rheumatology
DX: E11.65 Type 2 diabetes mellitus with hyperglycemia (principal); E78.2 Mixed hyperlipidemia; E03.8 Other specified hypothyroidism; E55.9 Vitamin D deficiency, unspecified; D50.9 Iron deficiency anemia, unspecified; M06.09 Rheumatoid arthritis without rheumatoid factor, multiple sites; M79.7 Fibromyalgia; M17.0 Bilateral primary osteoarthritis of knee; M21.40 Flat foot [pes planus] (acquired), unspecified foot; K21.00 Gastro-esophageal reflux disease with esophagitis, without bleeding; K76.0 Fatty (change of) liver, not elsewhere classified; I10 Essential (primary) hypertension; E03.9 Hypothyroidism, unspecified; G25.81 Restless legs syndrome; G47.33 Obstructive sleep apnea (adult) (pediatric); E28.2 Polycystic ovarian syndrome; N80.0 Endometriosis of uterus; Z79.899 Other long term (current) drug therapy
CPT/HCPCS: 36415; 80053; 80061; 82306; 82607; 83036; 83540; 84443; 85025

== ENCOUNTER → 2020-08-31 13:28 | Outpatient (CLI) | payer BC, SELFPAY ==
--- NOTE | 2020-08-31 13:30 | BI_ITS ---
MAMMOGRAPHY - BILATERAL SCREENING REASON FOR EXAM: Female, 50 years old. Routine annual screening examination. PERTINENT HISTORY: Aunt with breast cancer. Three-month history of occasional left breast discharge. TECHNIQUE: Digital bilateral breast urban (3D mammographic acquisition) in the CC and MLO projections. 2-D mediolateral oblique (MLO) and craniocaudad (CC) views of both breasts were obtained. CAD: Full Field Digital Mammography with Computer Added Detection was performed. COMPARISON: Comparison is made with prior study dated 08/30/2019 and 08/14/2018. FINDINGS: Breast Composition: The breasts are heterogeneously dense, which may obscure small masses. There are no dominant masses or suspicious calcifications. Stable small left intramammary lymph node in the upper outer aspect of the breast. No other significant abnormalities are identified. There has been no significant change since the prior study. BI/SCREEN MAMM (CAD) W/URBAN BILAT IMPRESSION: Stable bilateral screening mammogram. With the patient''s history of occasional left breast discharge, correlation with ultrasound is recommended. ASSESSMENT CATEGORY: BIRADS Category 0: Incomplete. Need additional imaging evaluation. A letter regarding these results will be sent to the patient by the facility within 30 days. Approximately 10% of breast cancers are not detected by mammography. A normal mammogram should not delay biopsy of a clinically suspicious abnormality. [id number] Electronically Signed: Jakub Kyle, at 14:15 EST , Service support ,
== END ==
PROVIDERS: PCP Preventive Medicine Occupational Medicine; Referring Provider Preventive Medicine Occupational Medicine; Visit Provider Preventive Medicine Occupational Medicine
DX: Z12.31 Encounter for screening mammogram for malignant neoplasm of breast (principal); N64.52 Nipple discharge
CPT/HCPCS: 77063; 77067

== ENCOUNTER → 2020-09-12 14:05 | Outpatient (CLI) | payer BC, SELFPAY ==
--- NOTE | 2020-09-12 14:17 | US_ITS ---
STUDY: ULTRASOUND BREAST - LEFT REASON FOR EXAM: Female, 50 years old. Nipple discharge in the left breast. TECHNIQUE: Axial and longitudinal images of the LEFT breast were performed with a high resolution ultrasound transducer. # OF IMAGES: 43 COMPARISON: Comparison is made with prior mammogram dated 08/31/2020 and prior sonogram of the breast dated 08/14/2018. FINDINGS: LEFT Breast: The retroareolar region of the left breast was examined by ultrasound. No sonographic abnormality is seen. US/Breast Limited Unilateral IMPRESSION: No sonographic abnormality is seen. ASSESSMENT CATEGORY: BIRADS Category 1: Negative. A letter regarding these results will be sent to the patient by the facility within 30 days. Electronically Signed: Jakub Kyle, at 15:32 EST , Service support ,
== END ==
PROVIDERS: PCP Preventive Medicine Occupational Medicine; Referring Provider Preventive Medicine Occupational Medicine; Visit Provider Preventive Medicine Occupational Medicine
DX: N64.52 Nipple discharge (principal)
CPT/HCPCS: 76642

== ENCOUNTER → 2020-10-16 16:35 | Outpatient (CLI) | payer BC, SELFPAY ==
[2020-10-16 18:49] LABS: Vitamin D,25 Hydroxy 30.9 ng/mL
[2020-10-16 18:50] LABS: ALB/GLOB Ratio 1.1 RATIO (0.9-2.4); AST(SGOT) 18 U/L (15-37); Alanine Aminotransfer ALT/SGPT 29 U/L (13-56); Albumin, Serum 3.7 g/dL (3.2-5.0); Alkaline Phosphatase 97 U/L (45-117); Anion Gap 7 (5-15); BUN 15 mg/dL (7-18); Calcium,Total 9.1 mg/dL (8.5-10.1); Chloride 105 mmol/L (98-107); Creatinine, Serum 0.75 mg/dL (0.55-1.02); EST Glomerular Filtration Rate 86 mL/min (>60); Est Glom Filt Rate - Afr Amer 104 mL/min (>60); Globulin 3.5 g/dL (2.2-4.2); Glucose 120 mg/dL (74-106); Potassium 3.8 mmol/L (3.5-5.1); Protein, Total 7.2 g/dL (6.4-8.2); Sodium Level 139 mmol/L (136-145)
[2020-10-16 18:51] LABS: Hemoglobin A1c 7.1 % (3.8-5.6)
== END ==
PROVIDERS: PCP Preventive Medicine Occupational Medicine; Referring Provider Internal Medicine Endocrinology, Diabetes & Metabolism; Visit Provider Internal Medicine Endocrinology, Diabetes & Metabolism
DX: E11.65 Type 2 diabetes mellitus with hyperglycemia (principal); E55.9 Vitamin D deficiency, unspecified; N20.0 Calculus of kidney
CPT/HCPCS: 36415; 80053; 82306; 83036

== ENCOUNTER → 2020-10-23 07:01 | Outpatient (CLI) | payer BC, SELFPAY | PROVIDERS: PCP Preventive Medicine Occupational Medicine; Referring Provider Internal Medicine Endocrinology, Diabetes & Metabolism; Visit Provider Internal Medicine Endocrinology, Diabetes & Metabolism | DX: E11.65 Type 2 diabetes mellitus with hyperglycemia (principal); E55.9 Vitamin D deficiency, unspecified; N20.0 Calculus of kidney | CPT/HCPCS: 81050 ==

== ENCOUNTER → 2020-11-28 07:39 | Outpatient (CLI) | payer BC, SELFPAY ==
[2020-11-28 10:06] LABS: Absolute Neutrophil Count 5.5 X10^3/uL (2.0-7.7); Basophil# 0.07 X10^3/uL; Basophil% 0.9 % (0-1); Eosinophil# 0.17 X10^3/uL; Eosinophils% 2.1 % (0-5); Hematocrit 43.5 % (37-47); Hemoglobin 13.8 g/dL (12.0-15.0); Lymphocyte % 20.9 % (19-41); Mean Corp Hgb Conc 31.7 g/dL (32-36); Mean Corpuscular Hgb 27.4 pg (27.0-32.0); Mean Corpuscular Volume 86.5 fL (81-99); Mean Platelet Vol. 10.9 fl (6.2-12.0); Monocyte# 0.68 X10^3/uL; Monocyte% 8.4 % (0-10); NRBC Flagged by Analyzer 0 % (0-5); Neutrophil # 5.45 X10^3/uL (2.7-7.7); Neutrophil % 66.8 % (47-70); Platelet Count 229 K/mm3 (150-450); RBC Distribution Width CV 13.8 % (11.6-14.6); RBC Distribution Width SD 43.6 fl (35.1-43.9); Red Blood Count 5.03 M/mm3 (4.2-5.4); White Blood Count 8.1 K/mm3 (4.4-11.0)
[2020-11-28 10:44] LABS: Hemoglobin A1c 6.7 % (3.8-5.6)
[2020-11-28 10:46] LABS: ALB/GLOB Ratio 1.1 RATIO (0.9-2.4); AST(SGOT) 21 U/L (15-37); Alanine Aminotransfer ALT/SGPT 32 U/L (13-56); Albumin, Serum 3.8 g/dL (3.2-5.0); Alkaline Phosphatase 94 U/L (45-117); Anion Gap 7 (5-15); BUN 16 mg/dL (7-18); BUN/Creat Ratio 20.3 RATIO (10-20); Calcium,Total 8.9 mg/dL (8.5-10.1); Chloride 105 mmol/L (98-107); Cholesterol 169 mg/dL (200); Creatinine, Serum 0.79 mg/dL (0.55-1.02); EST Glomerular Filtration Rate 81 mL/min (>60); Est Glom Filt Rate - Afr Amer 98 mL/min (>60); Globulin 3.5 g/dL (2.2-4.2); Glucose 154 mg/dL (74-106); High Density Lipoprotein 64 mg/dL; Potassium 3.9 mmol/L (3.5-5.1); Protein, Total 7.3 g/dL (6.4-8.2); Sodium Level 139 mmol/L (136-145); Thyroid Stim Hormone (TSH) 0.49 uIU/mL (0.358-3.74); Triglycerides 136 mg/dL; Very Low Density Lipoprotein 27 mg/dL (5-40)
[2020-11-28 10:56] LABS: Microalbumin,Random Urine 15.2 mg/L (NO RANGE EST.); Microalbumin:Creatinine Ratio 11.2 mg/g CRE (<30 mg/g CRE)
== END ==
PROVIDERS: PCP Preventive Medicine Occupational Medicine; Referring Provider Internal Medicine Endocrinology, Diabetes & Metabolism; Visit Provider Internal Medicine Endocrinology, Diabetes & Metabolism
DX: E11.65 Type 2 diabetes mellitus with hyperglycemia (principal); E03.8 Other specified hypothyroidism; E78.2 Mixed hyperlipidemia; I10 Essential (primary) hypertension; M06.09 Rheumatoid arthritis without rheumatoid factor, multiple sites; M79.7 Fibromyalgia; Z79.899 Other long term (current) drug therapy
CPT/HCPCS: 36415; 80053; 80061; 82043; 82570; 83036; 84443; 85025

== ENCOUNTER → 2021-02-09 07:22 | Outpatient (CLI) | payer BC, SELFPAY ==
[2021-02-09 10:02] LABS: Absolute Lymphocyte Count 1.97 X10^3/uL (0.83-4.51); Absolute Neutrophil Count 5.1 X10^3/uL (2.0-7.7); Basophil# 0.05 X10^3/uL; Basophil% 0.6 % (0-1); Eosinophil# 0.12 X10^3/uL; Eosinophils% 1.5 % (0-5); Hematocrit 43.1 % (37-47); Hemoglobin 13.9 g/dL (12.0-15.0); Lymphocyte # 1.97 X10^3/ul (0.83-4.51); Lymphocyte % 24.3 % (19-41); Mean Corp Hgb Conc 32.3 g/dL (32-36); Mean Corpuscular Hgb 27.5 pg (27.0-32.0); Mean Corpuscular Volume 85.3 fL (81-99); Mean Platelet Vol. 10.9 fl (6.2-12.0); Monocyte# 0.83 X10^3/uL; Monocyte% 10.2 % (0-10); NRBC Flagged by Analyzer 0 % (0-5); Neutrophil # 5.11 X10^3/uL (2.7-7.7); Neutrophil % 62.9 % (47-70); Platelet Count 252 K/mm3 (150-450); RBC Distribution Width CV 13.2 % (11.6-14.6); RBC Distribution Width SD 41.1 fl (35.1-43.9); Red Blood Count 5.05 M/mm3 (4.2-5.4); White Blood Count 8.1 K/mm3 (4.4-11.0)
[2021-02-09 10:26] LABS: ALB/GLOB Ratio 1.1 RATIO (0.9-2.4); AST(SGOT) 23 U/L (15-37); Alanine Aminotransfer ALT/SGPT 33 U/L (13-56); Albumin, Serum 3.9 g/dL (3.2-5.0); Alkaline Phosphatase 106 U/L (45-117); Anion Gap 7 (5-15); BUN 14 mg/dL (7-18); BUN/Creat Ratio 16.6 RATIO (10-20); Calcium,Total 8.9 mg/dL (8.5-10.1); Chloride 106 mmol/L (98-107); Creatinine, Serum 0.84 mg/dL (0.55-1.02); EST Glomerular Filtration Rate 75 mL/min (>60); Est Glom Filt Rate - Afr Amer 91 mL/min (>60); Globulin 3.5 g/dL (2.2-4.2); Glucose 139 mg/dL (74-106); Hemoglobin A1c 6.7 % (3.8-5.6); Potassium 3.7 mmol/L (3.5-5.1); Protein, Total 7.4 g/dL (6.4-8.2); Sodium Level 140 mmol/L (136-145)
== END ==
PROVIDERS: PCP Preventive Medicine Occupational Medicine; Referring Provider Internal Medicine Rheumatology; Visit Provider Internal Medicine Rheumatology
DX: E11.65 Type 2 diabetes mellitus with hyperglycemia (principal); M06.09 Rheumatoid arthritis without rheumatoid factor, multiple sites; Z79.899 Other long term (current) drug therapy; M79.7 Fibromyalgia; M25.562 Pain in left knee; M21.40 Flat foot [pes planus] (acquired), unspecified foot; K21.00 Gastro-esophageal reflux disease with esophagitis, without bleeding; K76.0 Fatty (change of) liver, not elsewhere classified; I10 Essential (primary) hypertension; E03.9 Hypothyroidism, unspecified; G25.81 Restless legs syndrome; G47.33 Obstructive sleep apnea (adult) (pediatric); N80.0 Endometriosis of uterus
CPT/HCPCS: 36415; 80053; 83036; 85025

== ENCOUNTER → 2021-05-01 14:30 | Outpatient (CLI) | payer BC, SELFPAY ==
--- NOTE | 2021-05-01 14:48 | CT_ITS ---
STUDY: LEFT HAND/WRIST CT SCAN REASON FOR EXAM: Female, 51 years old. DISP FX OF TRAPEZIUM,LEFT WRIST,INIT FOR CLOS FX RADIATION DOSAGE (If Supplied By Facility): CTDIvol = ( 9.46 ) mGy, DLP = ( 223.06 ) mGycm. Individualized dose optimization techniques were used for this CT.? TECHNIQUE: Axial multidetector CT scan of the left hand/wrist. Coronal and sagittal reformatted images. COMPARISON: None. FINDINGS: Acute/subacute nondisplaced trapezium fracture (coronal images 29 through 31 series 601) with tiny adjacent bone fragments. No acute dislocation. No acute cortical destruction. Remainder of the carpal bones intact. Small lunate cyst/erosions. Distal radius and ulna intact. Slight ulnar negative variance. First through fifth metacarpals intact. Visualized digits intact. Mild soft tissue swelling. No solid, cystic or lipomatous lesions given CT technique. CT/Extremity Upper without Contra IMPRESSION: Acute/subacute nondisplaced trapezium fracture with tiny adjacent bone fragments Small lunate cyst/erosions Mild soft tissue swelling Electronically Signed: Emmanuel Hinton DO at 11:01 EDT Tel , Service support ,
== END ==
PROVIDERS: PCP Preventive Medicine Occupational Medicine; Referring Provider Physician Assistant; Visit Provider Physician Assistant
DX: S62.172A Displaced fracture of trapezium [larger multangular], left wrist, initial encounter for closed fracture (principal); X58.XXXA Exposure to other specified factors, initial encounter
CPT/HCPCS: 73200

== ENCOUNTER → 2021-05-15 08:01 | Outpatient (CLI) | payer BC, SELFPAY ==
[2021-05-15 10:27] LABS: Absolute Lymphocyte Count 2.28 X10^3/uL (0.83-4.51); Absolute Neutrophil Count 5.1 X10^3/uL (2.0-7.7); Basophil# 0.08 X10^3/uL; Eosinophil# 0.18 X10^3/uL; Eosinophils% 2.2 % (0-5); Hematocrit 42.3 % (37-47); Hemoglobin 13.6 g/dL (12.0-15.0); Lymphocyte # 2.28 X10^3/ul (0.83-4.51); Lymphocyte % 27.3 % (19-41); Mean Corp Hgb Conc 32.2 g/dL (32-36); Mean Corpuscular Hgb 27.2 pg (27.0-32.0); Mean Corpuscular Volume 84.6 fL (81-99); Mean Platelet Vol. 10.7 fl (6.2-12.0); Monocyte# 0.65 X10^3/uL; Monocyte% 7.8 % (0-10); NRBC Flagged by Analyzer 0 % (0-5); Neutrophil # 5.11 X10^3/uL (2.7-7.7); Neutrophil % 61.1 % (47-70); Platelet Count 255 K/mm3 (150-450); RBC Distribution Width SD 43.1 fl (35.1-43.9); White Blood Count 8.4 K/mm3 (4.4-11.0)
[2021-05-15 10:44] LABS: AST(SGOT) 34 U/L (15-37); Alanine Aminotransfer ALT/SGPT 37 U/L (13-56); Albumin, Serum 3.6 g/dL (3.2-5.0); Alkaline Phosphatase 132 U/L (45-117); Anion Gap 4 (5-15); BUN 15 mg/dL (7-18); BUN/Creat Ratio 19.4 RATIO (10-20); Calcium,Total 8.6 mg/dL (8.5-10.1); Chloride 104 mmol/L (98-107); Creatinine, Serum 0.77 mg/dL (0.55-1.02); EST Glomerular Filtration Rate 83 mL/min (>60); Est Glom Filt Rate - Afr Amer 101 mL/min (>60); Globulin 3.7 g/dL (2.2-4.2); Glucose 208 mg/dL (74-106); Protein, Total 7.3 g/dL (6.4-8.2); Sodium Level 137 mmol/L (136-145)
== END ==
PROVIDERS: PCP Preventive Medicine Occupational Medicine; Referring Provider Internal Medicine Rheumatology; Visit Provider Internal Medicine Rheumatology
DX: M06.09 Rheumatoid arthritis without rheumatoid factor, multiple sites (principal); M79.7 Fibromyalgia; M25.562 Pain in left knee; M21.40 Flat foot [pes planus] (acquired), unspecified foot; K21.00 Gastro-esophageal reflux disease with esophagitis, without bleeding; K76.0 Fatty (change of) liver, not elsewhere classified; E11.9 Type 2 diabetes mellitus without complications; I10 Essential (primary) hypertension; E03.9 Hypothyroidism, unspecified; G25.81 Restless legs syndrome; G47.33 Obstructive sleep apnea (adult) (pediatric); E28.2 Polycystic ovarian syndrome; N80.0 Endometriosis of uterus; Z79.899 Other long term (current) drug therapy
CPT/HCPCS: 36415; 80053; 85025

== ENCOUNTER → 2021-08-06 16:54 | Outpatient (CLI) | payer BC, SELFPAY ==
[2021-08-06 18:01] LABS: Absolute Lymphocyte Count 2.69 X10^3/uL (0.83-4.51); Absolute Neutrophil Count 3.8 X10^3/uL (2.0-7.7); Basophil# 0.04 X10^3/uL; Basophil% 0.5 % (0-1); Eosinophil# 0.16 X10^3/uL; Eosinophils% 2.2 % (0-5); Hematocrit 42.8 % (37-47); Hemoglobin 13.9 g/dL (12.0-15.0); Lymphocyte # 2.69 X10^3/ul (0.83-4.51); Mean Corp Hgb Conc 32.5 g/dL (32-36); Mean Corpuscular Hgb 27.4 pg (27.0-32.0); Mean Corpuscular Volume 84.4 fL (81-99); Mean Platelet Vol. 10.6 fl (6.2-12.0); Monocyte# 0.54 X10^3/uL; Monocyte% 7.4 % (0-10); NRBC Flagged by Analyzer 0 % (0-5); Neutrophil # 3.81 X10^3/uL (2.7-7.7); Neutrophil % 52.4 % (47-70); Platelet Count 264 K/mm3 (150-450); RBC Distribution Width CV 13.7 % (11.6-14.6); RBC Distribution Width SD 42.2 fl (35.1-43.9); Red Blood Count 5.07 M/mm3 (4.2-5.4); White Blood Count 7.3 K/mm3 (4.4-11.0)
[2021-08-06 18:35] LABS: BUN 11 mg/dL (7-18); Creatinine, Serum 0.75 mg/dL (0.55-1.02); Glucose 174 mg/dL (74-106)
[2021-08-06 18:36] LABS: AST(SGOT) 27 U/L (15-37); Alanine Aminotransfer ALT/SGPT 36 U/L (13-56); Albumin, Serum 3.8 g/dL (3.2-5.0); Alkaline Phosphatase 91 U/L (45-117); Anion Gap 6 (5-15); BUN/Creat Ratio 14.7 RATIO (10-20); Chloride 105 mmol/L (98-107); EST Glomerular Filtration Rate 86 mL/min (>60); Est Glom Filt Rate - Afr Amer 104 mL/min (>60); Globulin 3.8 g/dL (2.2-4.2); Potassium 3.8 mmol/L (3.5-5.1); Protein, Total 7.6 g/dL (6.4-8.2); Sodium Level 139 mmol/L (136-145)
== END ==
PROVIDERS: PCP Preventive Medicine Occupational Medicine; Referring Provider Internal Medicine Rheumatology; Visit Provider Internal Medicine Rheumatology
DX: M06.09 Rheumatoid arthritis without rheumatoid factor, multiple sites (principal); M79.7 Fibromyalgia; M25.562 Pain in left knee; M21.40 Flat foot [pes planus] (acquired), unspecified foot; K21.00 Gastro-esophageal reflux disease with esophagitis, without bleeding; K76.0 Fatty (change of) liver, not elsewhere classified; E11.9 Type 2 diabetes mellitus without complications; I10 Essential (primary) hypertension; E03.9 Hypothyroidism, unspecified; G25.81 Restless legs syndrome; G47.33 Obstructive sleep apnea (adult) (pediatric); E28.2 Polycystic ovarian syndrome; N80.0 Endometriosis of uterus; Z79.899 Other long term (current) drug therapy
CPT/HCPCS: 36415; 80053; 85025

== ENCOUNTER → 2021-08-24 10:09 | Outpatient (CLI) | payer OTHER, SELFPAY ==
--- NOTE | 2021-08-24 10:12 | BI_ITS ---
MAMMOGRAPHY - BILATERAL SCREENING REASON FOR EXAM: Female, 51 years old. Routine annual screening examination. PERTINENT HISTORY: Aunt with breast cancer. TECHNIQUE: Digital bilateral breast urban (3D mammographic acquisition) in the CC and MLO projections. 2-D mediolateral oblique (MLO) and craniocaudad (CC) views of both breasts were obtained. CAD: Full Field Digital Mammography with Computer Added Detection was performed. COMPARISON: Comparison is made with prior study dated 08/31/2020 and 08/30/2019. FINDINGS: Breast Composition: The breasts are heterogeneously dense, which may obscure small masses. There are no dominant masses or suspicious calcifications. Stable benign-appearing bilateral axillary lymph nodes. No other significant abnormalities are identified. There has been no significant change since the prior study. BI/SCRN MAMM (CAD)W/URBAN BILAT IMPRESSION: Stable bilateral screening mammogram. Yearly follow-up mammogram recommended. (A) ASSESSMENT CATEGORY: BIRADS Category 2: Benign. A letter regarding these results will be sent to the patient by the facility within 30 days. Approximately 10% of breast cancers are not detected by mammography. A normal mammogram should not delay biopsy of a clinically suspicious abnormality. [id number] Electronically Signed: Jakub Kyle MD at 12:45 EST , Service support ,
== END ==
PROVIDERS: PCP Preventive Medicine Occupational Medicine
DX: Z12.31 Encounter for screening mammogram for malignant neoplasm of breast (principal); Z80.3 Family history of malignant neoplasm of breast
CPT/HCPCS: 77063; 77067

== ENCOUNTER 2021-10-19 11:02 | Outpatient (CLI) | payer OTHER, SELFPAY ==
[2021-10-19 12:23] LABS: Hemoglobin A1c 8.1 % (3.8-5.6)
[2021-10-19 12:38] LABS: AST(SGOT) 22 U/L (15-37); Alanine Aminotransfer ALT/SGPT 28 U/L (13-56); Albumin, Serum 3.8 g/dL (3.2-5.0); Alkaline Phosphatase 104 U/L (45-117); Anion Gap 4 (5-15); BUN 11 mg/dL (7-18); BUN/Creat Ratio 14.8 RATIO (10-20); Chloride 103 mmol/L (98-107); Cholesterol 193 mg/dL (200); Creatinine, Serum 0.74 mg/dL (0.55-1.02); EST Glomerular Filtration Rate 87 mL/min (>60); Est Glom Filt Rate - Afr Amer 105 mL/min (>60); Globulin 3.8 g/dL (2.2-4.2); Glucose 130 mg/dL (74-106); High Density Lipoprotein 55 mg/dL; Potassium 3.9 mmol/L (3.5-5.1); Protein, Total 7.6 g/dL (6.4-8.2); Sodium Level 137 mmol/L (136-145); Triglycerides 98 mg/dL; Very Low Density Lipoprotein 20 mg/dL (5-40)
[2021-10-19 12:41] LABS: Microalbumin,Random Urine 32.9 mg/L (NO RANGE EST.); Microalbumin:Creatinine Ratio 24.2 mg/g CRE (<30 mg/g CRE)
== END 2021-10-19 23:59 | disposition home or self-care (01) ==
LOC: MTLAB 11:04
PROVIDERS: PCP Preventive Medicine Occupational Medicine; Referring Provider Internal Medicine Endocrinology, Diabetes & Metabolism; Visit Provider Internal Medicine Endocrinology, Diabetes & Metabolism
DX: E11.9 Type 2 diabetes mellitus without complications (principal); E78.2 Mixed hyperlipidemia
CPT/HCPCS: 36415; 80053; 80061; 82043; 82570; 83036

== ENCOUNTER → 2022-01-31 | Outpatient (CLI) | payer OTHER, SELFPAY ==
[2022-01-31 10:03] LABS: Absolute Lymphocyte Count 1.87 X10^3/uL (0.83-4.51); Absolute Neutrophil Count 4.2 X10^3/uL (2.0-7.7); Basophil# 0.08 X10^3/uL; Basophil% 1.2 % (0-1); Eosinophil# 0.14 X10^3/uL; Hematocrit 42.3 % (37-47); Hemoglobin 13.5 g/dL (12.0-15.0); Lymphocyte # 1.87 X10^3/ul (0.83-4.51); Lymphocyte % 27.1 % (19-41); Mean Corp Hgb Conc 31.9 g/dL (32-36); Mean Corpuscular Hgb 26.8 pg (27.0-32.0); Mean Corpuscular Volume 84.1 fL (81-99); Mean Platelet Vol. 10.4 fl (6.2-12.0); Monocyte# 0.57 X10^3/uL; Monocyte% 8.3 % (0-10); NRBC Flagged by Analyzer 0 % (0-5); Neutrophil # 4.19 X10^3/uL (2.7-7.7); Neutrophil % 60.8 % (47-70); Platelet Count 248 K/mm3 (150-450); RBC Distribution Width CV 13.3 % (11.6-14.6); RBC Distribution Width SD 40.8 fl (35.1-43.9); Red Blood Count 5.03 M/mm3 (4.2-5.4); White Blood Count 6.9 K/mm3 (4.4-11.0)
[2022-01-31 10:31] LABS: ALB/GLOB Ratio 1.1 RATIO (0.9-2.4); AST(SGOT) 24 U/L (15-37); Alanine Aminotransfer ALT/SGPT 28 U/L (13-56); Albumin, Serum 3.8 g/dL (3.2-5.0); Alkaline Phosphatase 103 U/L (45-117); Anion Gap 7 (5-15); BUN 24 mg/dL (7-18); BUN/Creat Ratio 27.9 RATIO (10-20); Calcium,Total 8.6 mg/dL (8.5-10.1); Chloride 103 mmol/L (98-107); Creatinine, Serum 0.86 mg/dL (0.55-1.02); EST Glomerular Filtration Rate 73 mL/min (>60); Est Glom Filt Rate - Afr Amer 88 mL/min (>60); Globulin 3.4 g/dL (2.2-4.2); Glucose 128 mg/dL (74-106); Potassium 3.8 mmol/L (3.5-5.1); Protein, Total 7.2 g/dL (6.4-8.2); Sodium Level 137 mmol/L (136-145); Thyroid Stim Hormone (TSH) 0.73 uIU/mL (0.358-3.74)
[2022-01-31 10:34] LABS: Hemoglobin A1c 6.8 % (3.8-5.6)
[2022-01-31 10:35] LABS: Vitamin D,25 Hydroxy 29.9 ng/mL
== END | disposition home or self-care (01) ==
PROVIDERS: PCP Preventive Medicine Occupational Medicine; Referring Provider Internal Medicine Rheumatology; Visit Provider Internal Medicine Rheumatology
DX: M06.00 Rheumatoid arthritis without rheumatoid factor, unspecified site (principal); E11.65 Type 2 diabetes mellitus with hyperglycemia; M79.7 Fibromyalgia; M17.0 Bilateral primary osteoarthritis of knee; M21.40 Flat foot [pes planus] (acquired), unspecified foot; K21.00 Gastro-esophageal reflux disease with esophagitis, without bleeding; K76.0 Fatty (change of) liver, not elsewhere classified; I10 Essential (primary) hypertension; E03.9 Hypothyroidism, unspecified; G25.81 Restless legs syndrome; G47.33 Obstructive sleep apnea (adult) (pediatric); E28.2 Polycystic ovarian syndrome; N80.0 Endometriosis of uterus; E03.8 Other specified hypothyroidism; E55.9 Vitamin D deficiency, unspecified; Z96.651 Presence of right artificial knee joint; Z79.84 Long term (current) use of oral hypoglycemic drugs; Z79.899 Other long term (current) drug therapy
CPT/HCPCS: 36415; 80053; 82306; 83036; 84443; 85025

== ENCOUNTER → 2022-05-10 | Outpatient (CLI) | payer OTHER, SELFPAY ==
[2022-05-10 10:07] LABS: Absolute Lymphocyte Count 1.67 X10^3/uL (0.83-4.51); Absolute Neutrophil Count 4.5 X10^3/uL (2.0-7.7); Basophil# 0.06 X10^3/uL; Basophil% 0.9 % (0-1); Eosinophil# 0.19 X10^3/uL; Eosinophils% 2.7 % (0-5); Hemoglobin 14.3 g/dL (12.0-15.0); Lymphocyte # 1.67 X10^3/ul (0.83-4.51); Lymphocyte % 23.9 % (19-41); Mean Corp Hgb Conc 32.5 g/dL (32-36); Mean Corpuscular Hgb 27.3 pg (27.0-32.0); Mean Corpuscular Volume 84.1 fL (81-99); Mean Platelet Vol. 10.5 fl (6.2-12.0); Monocyte# 0.54 X10^3/uL; Monocyte% 7.7 % (0-10); NRBC Flagged by Analyzer 0 % (0-5); Neutrophil # 4.49 X10^3/uL (2.7-7.7); Neutrophil % 64.2 % (47-70); Platelet Count 253 K/mm3 (150-450); RBC Distribution Width CV 13.5 % (11.6-14.6); RBC Distribution Width SD 41.5 fl (35.1-43.9); Red Blood Count 5.23 M/mm3 (4.2-5.4)
[2022-05-10 10:43] LABS: AST(SGOT) 22 U/L (15-37); Alanine Aminotransfer ALT/SGPT 26 U/L (13-56); Albumin, Serum 3.9 g/dL (3.2-5.0); Alkaline Phosphatase 92 U/L (45-117); Anion Gap 7 (5-15); BUN 22 mg/dL (7-18); BUN/Creat Ratio 25.5 RATIO (10-20); Calcium,Total 9.2 mg/dL (8.5-10.1); Chloride 105 mmol/L (98-107); Creatinine, Serum 0.86 mg/dL (0.55-1.02); EST Glomerular Filtration Rate 73 mL/min (>60); Est Glom Filt Rate - Afr Amer 88 mL/min (>60); Globulin 3.8 g/dL (2.2-4.2); Glucose 131 mg/dL (74-106); Potassium 4.3 mmol/L (3.5-5.1); Protein, Total 7.7 g/dL (6.4-8.2); Sodium Level 138 mmol/L (136-145)
== END | disposition home or self-care (01) ==
LOC: MTLAB 07:31
PROVIDERS: PCP Preventive Medicine Occupational Medicine; Referring Provider Internal Medicine Rheumatology; Visit Provider Internal Medicine Rheumatology
DX: M06.00 Rheumatoid arthritis without rheumatoid factor, unspecified site (principal); E11.9 Type 2 diabetes mellitus without complications; Z79.899 Other long term (current) drug therapy; M79.7 Fibromyalgia; M17.0 Bilateral primary osteoarthritis of knee; K21.00 Gastro-esophageal reflux disease with esophagitis, without bleeding; K76.0 Fatty (change of) liver, not elsewhere classified; I10 Essential (primary) hypertension; E03.9 Hypothyroidism, unspecified; G25.81 Restless legs syndrome
CPT/HCPCS: 36415; 80053; 85025

== ENCOUNTER → 2022-06-03 | Outpatient (CLI) | payer OTHER, SELFPAY ==
[2022-06-03 10:20] LABS: Vitamin D,25 Hydroxy 34.8 ng/mL
[2022-06-03 10:38] LABS: AST(SGOT) 20 U/L (15-37); Alanine Aminotransfer ALT/SGPT 23 U/L (13-56); Albumin, Serum 3.7 g/dL (3.2-5.0); Alkaline Phosphatase 129 U/L (45-117); Anion Gap 8 (5-15); BUN 16 mg/dL (7-18); BUN/Creat Ratio 18.3 RATIO (10-20); Chloride 103 mmol/L (98-107); Cholesterol 181 mg/dL (200); Creatinine, Serum 0.87 mg/dL (0.55-1.02); EST Glomerular Filtration Rate 72 mL/min (>60); Est Glom Filt Rate - Afr Amer 87 mL/min (>60); Globulin 3.7 g/dL (2.2-4.2); Glucose 163 mg/dL (74-106); High Density Lipoprotein 53 mg/dL; Protein, Total 7.4 g/dL (6.4-8.2); Sodium Level 138 mmol/L (136-145); Thyroid Stim Hormone (TSH) 1.72 uIU/mL (0.358-3.74); Triglycerides 150 mg/dL; Very Low Density Lipoprotein 30 mg/dL (5-40)
== END | disposition home or self-care (01) ==
PROVIDERS: PCP Preventive Medicine Occupational Medicine; Referring Provider Physician Assistant; Visit Provider Physician Assistant
DX: E11.9 Type 2 diabetes mellitus without complications (principal); E78.2 Mixed hyperlipidemia; E03.8 Other specified hypothyroidism; E55.9 Vitamin D deficiency, unspecified
CPT/HCPCS: 36415; 80053; 80061; 82306; 83036; 84443

== ENCOUNTER → 2022-08-07 | Outpatient (CLI) | payer OTHER, SELFPAY ==
[2022-08-07 10:42] LABS: AST(SGOT) 19 U/L (15-37); Alanine Aminotransfer ALT/SGPT 26 U/L (13-56); Albumin, Serum 3.9 g/dL (3.2-5.0); Alkaline Phosphatase 92 U/L (45-117); Bilirubin, Direct 0.12 mg/dL (0.00-0.30); Globulin 3.1 g/dL (2.2-4.2)
== END | disposition home or self-care (01) ==
LOC: MTLAB 08:16
PROVIDERS: PCP Preventive Medicine Occupational Medicine; Referring Provider Internal Medicine Rheumatology; Visit Provider Internal Medicine Rheumatology
DX: M06.00 Rheumatoid arthritis without rheumatoid factor, unspecified site (principal); Z79.899 Other long term (current) drug therapy
CPT/HCPCS: 36415; 80076

== ENCOUNTER → 2022-08-28 | Outpatient (CLI) | payer OTHER, SELFPAY ==
--- NOTE | 2022-08-28 15:10 | BI_ITS ---
MAMMOGRAPHY - BILATERAL SCREENING REASON FOR EXAM: Female, 52 years old. Routine annual screening examination. PERTINENT HISTORY: Aunt with breast cancer. TECHNIQUE: Digital bilateral breast urban (3D mammographic acquisition) in the CC and MLO projections. 2-D mediolateral oblique (MLO) and craniocaudad (CC) views of both breasts were obtained. CAD: Full Field Digital Mammography with Computer Added Detection was performed. COMPARISON: Comparison is made with prior study 08/24/2021 and 08/31/2012. FINDINGS: Breast Composition: The breasts are heterogeneously dense, which may obscure small masses. There are no dominant masses or suspicious calcifications. Stable fat-containing bilateral axillary lymph nodes. No other significant abnormalities are identified. There has been no significant change since the prior study. BI/SCRN MAMM (CAD)W/URBAN BILAT IMPRESSION: Stable bilateral screening mammogram. Yearly follow-up mammogram recommended. (A) ASSESSMENT CATEGORY: BIRADS Category 2: Benign. A letter regarding these results will be sent to the patient by the facility within 30 days. Approximately 10% of breast cancers are not detected by mammography. A normal mammogram should not delay biopsy of a clinically suspicious abnormality. [id number] Electronically Signed: Jakub Kyle MD at 8:19 EST ,
== END | disposition home or self-care (01) ==
LOC: OPBI 15:08
PROVIDERS: PCP Preventive Medicine Occupational Medicine; Visit Provider Preventive Medicine Occupational Medicine
DX: Z12.31 Encounter for screening mammogram for malignant neoplasm of breast (principal); Z80.3 Family history of malignant neoplasm of breast
CPT/HCPCS: 77063; 77067

== ENCOUNTER → 2022-09-30 | Outpatient (CLI) | payer OTHER, SELFPAY ==
[2022-09-30 10:12] LABS: Microalbumin,Random Urine 18.1 mg/L (NO RANGE EST.)
[2022-09-30 10:13] LABS: ALB/GLOB Ratio 1.1 RATIO (0.9-2.4); AST(SGOT) 22 U/L (15-37); Alanine Aminotransfer ALT/SGPT 22 U/L (13-56); Albumin, Serum 3.9 g/dL (3.2-5.0); Alkaline Phosphatase 91 U/L (45-117); Anion Gap 9 (5-15); BUN 25 mg/dL (7-18); BUN/Creat Ratio 29.8 RATIO (10-20); Calcium,Total 9.3 mg/dL (8.5-10.1); Chloride 104 mmol/L (98-107); Cholesterol 173 mg/dL (200); Creatinine, Serum 0.84 mg/dL (0.55-1.02); EST Glomerular Filtration Rate 75 mL/min (>60); Est Glom Filt Rate - Afr Amer 91 mL/min (>60); Globulin 3.6 g/dL (2.2-4.2); Glucose 125 mg/dL (74-106); High Density Lipoprotein 63 mg/dL; Potassium 4.3 mmol/L (3.5-5.1); Protein, Total 7.5 g/dL (6.4-8.2); Sodium Level 137 mmol/L (136-145); Thyroid Stim Hormone (TSH) 0.93 uIU/mL (0.358-3.74); Triglycerides 97 mg/dL; Very Low Density Lipoprotein 19 mg/dL (5-40)
[2022-09-30 10:14] LABS: Hemoglobin A1c 6.6 % (3.8-5.6)
== END | disposition home or self-care (01) ==
LOC: MTLAB 08:59
PROVIDERS: PCP Preventive Medicine Occupational Medicine; Referring Provider Internal Medicine Endocrinology, Diabetes & Metabolism; Visit Provider Internal Medicine Endocrinology, Diabetes & Metabolism
DX: E78.2 Mixed hyperlipidemia (principal); E03.8 Other specified hypothyroidism; Z79.84 Long term (current) use of oral hypoglycemic drugs
CPT/HCPCS: 36415; 80053; 80061; 82043; 82570; 83036; 84443

== ENCOUNTER → 2022-10-28 | Outpatient (CLI) | payer OTHER, SELFPAY ==
[2022-10-28 10:18] LABS: Absolute Neutrophil Count 4.9 X10^3/uL (2.0-7.7); Basophil# 0.07 X10^3/uL; Basophil% 0.9 % (0-1); Eosinophil# 0.14 X10^3/uL; Eosinophils% 1.7 % (0-5); Hematocrit 42.5 % (37-47); Hemoglobin 13.3 g/dL (12.0-15.0); Lymphocyte % 28.5 % (19-41); Mean Corp Hgb Conc 31.3 g/dL (32-36); Mean Corpuscular Hgb 26.7 pg (27.0-32.0); Mean Corpuscular Volume 85.2 fL (81-99); Mean Platelet Vol. 10.3 fl (6.2-12.0); Monocyte# 0.62 X10^3/uL; Monocyte% 7.7 % (0-10); NRBC Flagged by Analyzer 0 % (0-5); Neutrophil # 4.89 X10^3/uL (2.7-7.7); Neutrophil % 60.5 % (47-70); Platelet Count 247 K/mm3 (150-450); RBC Distribution Width CV 14.1 % (11.6-14.6); Red Blood Count 4.99 M/mm3 (4.2-5.4); White Blood Count 8.1 K/mm3 (4.4-11.0)
[2022-10-28 10:33] LABS: AST(SGOT) 23 U/L (15-37); Alanine Aminotransfer ALT/SGPT 25 U/L (13-56); Albumin, Serum 3.7 g/dL (3.2-5.0); Alkaline Phosphatase 110 U/L (45-117); Anion Gap 7 (5-15); BUN 23 mg/dL (7-18); BUN/Creat Ratio 26.7 RATIO (10-20); Calcium,Total 9.1 mg/dL (8.5-10.1); Chloride 104 mmol/L (98-107); Creatinine, Serum 0.86 mg/dL (0.55-1.02); EST Glomerular Filtration Rate 73 mL/min (>60); Est Glom Filt Rate - Afr Amer 88 mL/min (>60); Globulin 3.8 g/dL (2.2-4.2); Glucose 161 mg/dL (74-106); Potassium 3.8 mmol/L (3.5-5.1); Protein, Total 7.5 g/dL (6.4-8.2); Sodium Level 137 mmol/L (136-145)
== END | disposition home or self-care (01) ==
LOC: MTLAB 07:21
PROVIDERS: PCP Preventive Medicine Occupational Medicine; Referring Provider Internal Medicine Rheumatology; Visit Provider Internal Medicine Rheumatology
DX: M06.00 Rheumatoid arthritis without rheumatoid factor, unspecified site (principal); Z79.899 Other long term (current) drug therapy
CPT/HCPCS: 36415; 80053; 85025

== ENCOUNTER → 2022-12-31 | Outpatient (CLI) | payer OTHER, SELFPAY ==
[2022-12-31 09:56] LABS: Absolute Lymphocyte Count 2.27 X10^3/uL (0.83-4.51); Absolute Neutrophil Count 6.7 X10^3/uL (2.0-7.7); Basophil# 0.08 X10^3/uL; Basophil% 0.8 % (0-1); Eosinophil# 0.22 X10^3/uL; Eosinophils% 2.2 % (0-5); Hematocrit 45.7 % (37-47); Hemoglobin 14.4 g/dL (12.0-15.0); Lymphocyte # 2.27 X10^3/ul (0.83-4.51); Lymphocyte % 22.2 % (19-41); Mean Corp Hgb Conc 31.5 g/dL (32-36); Mean Corpuscular Hgb 26.5 pg (27.0-32.0); Mean Platelet Vol. 9.8 fl (6.2-12.0); Monocyte# 0.87 X10^3/uL; Monocyte% 8.5 % (0-10); NRBC Flagged by Analyzer 0 % (0-5); Neutrophil # 6.68 X10^3/uL (2.7-7.7); Neutrophil % 65.4 % (47-70); Platelet Count 269 K/mm3 (150-450); RBC Distribution Width CV 13.7 % (11.6-14.6); RBC Distribution Width SD 41.6 fl (35.1-43.9); Red Blood Count 5.44 M/mm3 (4.2-5.4); White Blood Count 10.2 K/mm3 (4.4-11.0)
[2022-12-31 10:09] LABS: Vitamin D,25 Hydroxy 35.6 ng/mL
[2022-12-31 10:10] LABS: Hemoglobin A1c 7.4 % (3.8-5.6)
[2022-12-31 10:28] LABS: ALB/GLOB Ratio 0.9 RATIO (0.9-2.4); AST(SGOT) 15 U/L (15-37); Alanine Aminotransfer ALT/SGPT 32 U/L (13-56); Albumin, Serum 3.7 g/dL (3.2-5.0); Alkaline Phosphatase 143 U/L (45-117); Anion Gap 6 (5-15); BUN 28 mg/dL (7-18); BUN/Creat Ratio 31.2 RATIO (10-20); Calcium,Total 8.8 mg/dL (8.5-10.1); Chloride 102 mmol/L (98-107); EST Glomerular Filtration Rate 69 mL/min (>60); Est Glom Filt Rate - Afr Amer 84 mL/min (>60); Globulin 3.9 g/dL (2.2-4.2); Glucose 231 mg/dL (74-106); Potassium 3.8 mmol/L (3.5-5.1); Protein, Total 7.6 g/dL (6.4-8.2); Sodium Level 133 mmol/L (136-145); Thyroid Stim Hormone (TSH) 2.73 uIU/mL (0.358-3.74)
== END | disposition home or self-care (01) ==
LOC: MTLAB 08:43
PROVIDERS: PCP Preventive Medicine Occupational Medicine; Referring Provider Internal Medicine Endocrinology, Diabetes & Metabolism; Visit Provider Internal Medicine Endocrinology, Diabetes & Metabolism
DX: M06.00 Rheumatoid arthritis without rheumatoid factor, unspecified site (principal); K76.0 Fatty (change of) liver, not elsewhere classified; E55.9 Vitamin D deficiency, unspecified; Z79.899 Other long term (current) drug therapy; Z79.84 Long term (current) use of oral hypoglycemic drugs
CPT/HCPCS: 36415; 80053; 82306; 83036; 84443; 85025

== ENCOUNTER → 2023-04-10 | Outpatient (CLI) | payer OTHER, SELFPAY ==
[2023-04-10 12:30] LABS: Hemoglobin A1c 8.7 % (3.8-5.6)
[2023-04-10 12:36] LABS: Absolute Lymphocyte Count 1.76 X10^3/uL (0.83-4.51); Absolute Neutrophil Count 4.7 X10^3/uL (2.0-7.7); Basophil# 0.07 X10^3/uL; Eosinophil# 0.09 X10^3/uL; Eosinophils% 1.2 % (0-5); Hematocrit 44.4 % (37-47); Hemoglobin 14.1 g/dL (12.0-15.0); Lymphocyte # 1.76 X10^3/ul (0.83-4.51); Lymphocyte % 24.1 % (19-41); Mean Corp Hgb Conc 31.8 g/dL (32-36); Mean Corpuscular Hgb 26.7 pg (27.0-32.0); Mean Corpuscular Volume 83.9 fL (81-99); Mean Platelet Vol. 10.5 fl (6.2-12.0); Monocyte# 0.62 X10^3/uL; Monocyte% 8.5 % (0-10); NRBC Flagged by Analyzer 0 % (0-5); Neutrophil % 64.4 % (47-70); Platelet Count 254 K/mm3 (150-450); RBC Distribution Width CV 13.5 % (11.6-14.6); RBC Distribution Width SD 41.1 fl (35.1-43.9); Red Blood Count 5.29 M/mm3 (4.2-5.4); White Blood Count 7.3 K/mm3 (4.4-11.0)
[2023-04-10 13:06] LABS: AST(SGOT) 26 U/L (15-37); Alanine Aminotransfer ALT/SGPT 28 U/L (13-56); Albumin, Serum 3.8 g/dL (3.2-5.0); Alkaline Phosphatase 110 U/L (45-117); Anion Gap 7 (5-15); BUN 19 mg/dL (7-18); BUN/Creat Ratio 22.4 RATIO (10-20); Calcium,Total 9.1 mg/dL (8.5-10.1); Chloride 103 mmol/L (98-107); Creatinine, Serum 0.85 mg/dL (0.55-1.02); EST Glomerular Filtration Rate 74 mL/min (>60); Est Glom Filt Rate - Afr Amer 90 mL/min (>60); Globulin 3.8 g/dL (2.2-4.2); Glucose 173 mg/dL (74-106); Potassium 4.1 mmol/L (3.5-5.1); Protein, Total 7.6 g/dL (6.4-8.2); Sodium Level 137 mmol/L (136-145)
== END | disposition home or self-care (01) ==
LOC: MTLAB 10:15
PROVIDERS: PCP Preventive Medicine Occupational Medicine; Visit Provider Internal Medicine Rheumatology
DX: M06.00 Rheumatoid arthritis without rheumatoid factor, unspecified site (principal); Z79.84 Long term (current) use of oral hypoglycemic drugs; Z79.899 Other long term (current) drug therapy
CPT/HCPCS: 36415; 80053; 83036; 85025

== ENCOUNTER → 2023-07-09 | Outpatient (CLI) | payer OTHER, SELFPAY ==
[2023-07-09 10:44] LABS: Absolute Neutrophil Count 3.5 X10^3/uL (2.0-7.7); Basophil# 0.08 X10^3/uL; Basophil% 1.3 % (0-1); Eosinophil# 0.18 X10^3/uL; Hematocrit 47.1 % (37-47); Hemoglobin 14.8 g/dL (12.0-15.0); Mean Corp Hgb Conc 31.4 g/dL (32-36); Mean Corpuscular Hgb 26.5 pg (27.0-32.0); Mean Corpuscular Volume 84.3 fL (81-99); Mean Platelet Vol. 10.4 fl (6.2-12.0); Monocyte% 8.4 % (0-10); NRBC Flagged by Analyzer 0 % (0-5); Neutrophil # 3.54 X10^3/uL (2.7-7.7); Neutrophil % 59.8 % (47-70); Platelet Count 249 K/mm3 (150-450); RBC Distribution Width CV 13.5 % (11.6-14.6); RBC Distribution Width SD 41.5 fl (35.1-43.9); Red Blood Count 5.59 M/mm3 (4.2-5.4); White Blood Count 5.9 K/mm3 (4.4-11.0)
[2023-07-09 11:51] LABS: Hemoglobin A1c 7.5 % (3.8-5.6)
[2023-07-09 14:54] LABS: ALB/GLOB Ratio 1.1 RATIO (0.9-2.4); AST(SGOT) 34 U/L (15-37); Alanine Aminotransfer ALT/SGPT 26 U/L (13-56); Alkaline Phosphatase 95 U/L (45-117); Anion Gap 8 (5-15); BUN 22 mg/dL (7-18); BUN/Creat Ratio 24.1 RATIO (10-20); Calcium,Total 9.1 mg/dL (8.5-10.1); Chloride 104 mmol/L (98-107); Cholesterol 199 mg/dL (200); Creatinine, Serum 0.91 mg/dL (0.55-1.02); EST Glomerular Filtration Rate 68 mL/min (>60); Est Glom Filt Rate - Afr Amer 82 mL/min (>60); Follicle Stimulating Hormone 11.3 mIU/mL; Globulin 3.7 g/dL (2.2-4.2); Glucose 144 mg/dL (74-106); High Density Lipoprotein 59 mg/dL; Potassium 4.6 mmol/L (3.5-5.1); Protein, Total 7.7 g/dL (6.4-8.2); Sodium Level 138 mmol/L (136-145); Thyroid Stim Hormone (TSH) 2.07 uIU/mL (0.358-3.74); Triglycerides 119 mg/dL; Very Low Density Lipoprotein 24 mg/dL (5-40)
== END | disposition home or self-care (01) ==
LOC: MTLAB 08:49
PROVIDERS: PCP Preventive Medicine Occupational Medicine; Referring Provider Internal Medicine Rheumatology; Visit Provider Internal Medicine Rheumatology
DX: M06.00 Rheumatoid arthritis without rheumatoid factor, unspecified site (principal); K76.0 Fatty (change of) liver, not elsewhere classified; E78.2 Mixed hyperlipidemia; E03.8 Other specified hypothyroidism; N95.1 Menopausal and female climacteric states; Z79.84 Long term (current) use of oral hypoglycemic drugs; Z79.899 Other long term (current) drug therapy
CPT/HCPCS: 36415; 80053; 80061; 83001; 83036; 84443; 85025

== ENCOUNTER → 2023-08-18 | Outpatient (CLI) | payer OTHER, SELFPAY ==
[2023-08-18 15:34] LABS: Absolute Lymphocyte Count 1.79 X10^3/uL (0.83-4.51); Absolute Neutrophil Count 4.2 X10^3/uL (2.0-7.7); Basophil# 0.05 X10^3/uL; Basophil% 0.7 % (0-1); Eosinophil# 0.16 X10^3/uL; Eosinophils% 2.4 % (0-5); Hematocrit 43.8 % (37-47); Hemoglobin 13.9 g/dL (12.0-15.0); Lymphocyte # 1.79 X10^3/ul (0.83-4.51); Lymphocyte % 26.7 % (19-41); Mean Corp Hgb Conc 31.7 g/dL (32-36); Mean Corpuscular Hgb 26.5 pg (27.0-32.0); Mean Corpuscular Volume 83.6 fL (81-99); Mean Platelet Vol. 10.9 fl (6.2-12.0); Monocyte# 0.52 X10^3/uL; Monocyte% 7.7 % (0-10); NRBC Flagged by Analyzer 0 % (0-5); Neutrophil # 4.15 X10^3/uL (2.7-7.7); Neutrophil % 61.9 % (47-70); Platelet Count 277 K/mm3 (150-450); RBC Distribution Width CV 13.3 % (11.6-14.6); RBC Distribution Width SD 40.7 fl (35.1-43.9); Red Blood Count 5.24 M/mm3 (4.2-5.4); White Blood Count 6.7 K/mm3 (4.4-11.0)
[2023-08-18 16:26] LABS: ALB/GLOB Ratio 1.1 RATIO (0.9-2.4); AST(SGOT) 22 U/L (15-37); Alanine Aminotransfer ALT/SGPT 22 U/L (13-56); Alkaline Phosphatase 100 U/L (45-117); Anion Gap 7 (5-15); BUN 13 mg/dL (7-18); BUN/Creat Ratio 16.2 RATIO (10-20); Calcium,Total 8.9 mg/dL (8.5-10.1); Chloride 104 mmol/L (98-107); EST Glomerular Filtration Rate 79 mL/min (>60); Est Glom Filt Rate - Afr Amer 96 mL/min (>60); Globulin 3.5 g/dL (2.2-4.2); Glucose 168 mg/dL (74-106); Potassium 3.9 mmol/L (3.5-5.1); Protein, Total 7.5 g/dL (6.4-8.2); Sodium Level 138 mmol/L (136-145)
[2023-08-20 17:07] LABS: QNTFERON TB Mitogen Value > 10.00 IU/mL (.); QNTFERON TB Nil Value 0.01 IU/mL (.); QNTFERON TB1+ Ag Value 0 IU/mL (.); QNTFERON TB2+ Ag Value 0 IU/mL (.); QNTIFERON TB Positive Criteria Negative (Negative)
== END | disposition home or self-care (01) ==
LOC: MTLAB 12:00
PROVIDERS: PCP Preventive Medicine Occupational Medicine; Referring Provider Internal Medicine Rheumatology; Visit Provider Internal Medicine Rheumatology
DX: M06.00 Rheumatoid arthritis without rheumatoid factor, unspecified site (principal); M79.7 Fibromyalgia; Z79.899 Other long term (current) drug therapy
CPT/HCPCS: 36415; 80053; 85025; 86480

== ENCOUNTER → 2023-08-21 | Outpatient (CLI) | payer OTHER, SELFPAY ==
--- NOTE | 2023-08-21 07:34 | BI_ITS ---
MAMMOGRAPHY - BILATERAL SCREENING REASON FOR EXAM: Female, 53 years old. Routine annual screening examination. PERTINENT HISTORY: Aunt with breast cancer. TECHNIQUE: Digital bilateral breast urban (3D mammographic acquisition) in the CC and MLO projections. 2-D mediolateral oblique (MLO) and craniocaudad (CC) views of both breasts were obtained. CAD: Full Field Digital Mammography with Computer Added Detection was performed. COMPARISON: Comparison is made with prior study August 28, 2022 and August 24, 2021. FINDINGS: Breast Composition: The breasts are heterogeneously dense, which may obscure small masses. There are no dominant masses or suspicious calcifications. Stable fat-containing bilateral axillary lymph nodes. No other significant abnormalities are identified. There has been no significant change since the prior study. BI/SCRN MAMM (CAD)W/URBAN BILAT IMPRESSION: Stable bilateral screening mammogram. Yearly follow-up mammogram recommended. (A) ASSESSMENT CATEGORY: BIRADS Category 2: Benign. A letter regarding these results will be sent to the patient by the facility within 30 days. Approximately 10% of breast cancers are not detected by mammography. A normal mammogram should not delay biopsy of a clinically suspicious abnormality. [id number] Electronically Signed: Jakub Kyle MD at 9:18 EST ,
== END | disposition home or self-care (01) ==
PROVIDERS: PCP Preventive Medicine Occupational Medicine
DX: Z12.31 Encounter for screening mammogram for malignant neoplasm of breast (principal); E66.01 Morbid (severe) obesity due to excess calories
CPT/HCPCS: 77063; 77067

== ENCOUNTER → 2023-10-16 | Outpatient (CLI) | payer OTHER, SELFPAY ==
--- OUTSIDE RECORDS SUMMARY | 2023-10-16 07:58 | XMS RPT_ITS | CCD ---
Author Name Unknown Address [email or web address] [place] [address] Organization [facility] Care Team Providers Care Administrative Professional Name Role Phone SERGIO SILVA DO Primary Care Physician ([phone]) Sergio Silva DO Primary Care Provider [phone] Sergio Silva DO Primary Care Provider [phone] SIMONE AMIN Attending Unavailable PROVIDER, UNKNOWN Referring Unavailable Sergio Silva Primary Care Unavaila Rocael Galvez Attending Unavailable PROVIDER, UNKNOWN Referring Unavailable Sergio Silva Primary Care Unavaila Rocael Galvez Attending Unavailable PROVIDER, UNKNOWN Referring Unavailable Sergio Silva Primary Care Unavaila SIMONE Hughes Attending Unavailable PROVIDER, UNKNOWN Referring Unavailable Sergio Silva Primary Care Unavaila SIMONE Hughes Attending Unavailable PROVIDER, UNKNOWN Referring Unavailable Sergio Silva Primary Care Unavaila SERGIO Ornelas DO Primary Care Physician ([phone]) FELIBERTO CARDOSO Attending Unavailable SERGIO SILVA Primary Care Unavailable TOLU FRANCO MD Attending Unavailable SERGIO SILVA Primary Care Unavailable СВЕТЛАНА RAMOS Attending UnavailSERGIO Oliveira Primary Care Unavailable ISAIAH VERAS, DR. FONTANEZ Attending Unavaila SERGIO Ornelas Primary Care Unavailable СВЕТЛАНА RAMOS Attending UnavailSERGIO Oliveira Primary Care Unavailable TOLU FRANCO MD Attending Unavailable SERGIO SILVA Primary Care Unavailable TOLU FRANCO MD Attending Unavailable SERGIO SILVA Primary Care Unavailable TOLU FRANCO MD Admitting Unavailable BERNIE RIZO Consulting Unavailable Sergio Silva DO Primary Care Provider [phone] SIMONE AMIN Admitting Unavailable SIMONE AMIN Attending Unavailable SHANIA, SERGIO Primary Care Unavailable BRENNAN, SIMONE Attending Unavailable SHANIA, SERGIO Primary Care Unavailable BRENNAN, SIMONE Attending Unavailable SHANIA, SERGIO Primary Care Unavailable BRENNAN, SIMONE Attending Unavailable SHANIA, SERGIO Primary Care Unavailable BRENNAN, SIMONE Attending Unavailable SHANIA, SERGIO Primary Care Unavailable CAMERON SIMPSON Attending Unavailable CAMERON SIMPSON Referring Unavailable SHANIA, SERGIO Primary Care Unavailable BRENNAN, SIMONE Attending Unavailable SHANIA, SERGIO Primary Care Unavailable BRENNAN, SIMONE Referring Unavailable SHANIA, SERGIO Primary Care Unavailable KAEHLER, ROCAEL Referring Unavailable SHANIA, SERGIO Primary Care Unavailable BRENNAN, SIMONE Attending Unavailable KAEHLER, ROCAEL Referring Unavailable SHANIA, SERGIO Primary Care Unavailable BRENNAN, SIMONE Referring Unavailable SHANIA, SERGIO Primary Care Unavailable KAEHLER, ROCAEL Referring Unavailable SHANIA, SERGIO Primary Care Unavailable KAEHLER, ROCAEL Referring Unavailable SHANIA, SERGIO Primary Care Unavailable BRENNAN, SIMONE Attending Unavailable SHANIA, SERGIO Primary Care Unavailable KAEHLER, ROCAEL Attending Unavailable SHANIA, SERGIO Primary Care Unavailable Allergies Allergy Classification Reported Allergen(s) Allergy Type Date of Onset Reaction(s) Facility (6 sources) Feather Allergy to substance Unknown [facility] Work Phone: (6 sources) Sulfonamides (Antibiotic); Translations: [sulfa drugs] Drug allergy Syncope, Rash [facility] Work Phone: (6 sources) Grass Allergy to substance Unknown [facility] Work Phone: (6 sources) flu vaccines; Translations: [flu vaccines] Drug allergy [facility] Work Phone: (20 sources) Haemophilus influenzae type b Drug Allergy 2 Rash [facility] (20 sources) Sulfonamides (Antibiotic) Propensity to adverse reactions to drug 2 Rash [facility] Work Phone: Medications Current Medications Medication Drug Class(es) Dates Sig (Normalized) Sig (Original) acetaminophen 325 mg / oxyCODONE hydrochloride 5 mg oral tablet (4 sources) Opioid Agonist Start: 06-12-2023 End: 06-19-2023 take 1 tablet by mouth every six hours as needed for pain oxyCODONE-acetami nophen (Percocet) 5-325 MG tablet Indications: Arthritis of foot Take 1 tablet by mouth every 6 hours as needed for severe pain (7-10) for up to 7 days. 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] Onset: 06-12-2023 04-16-2023 Episodic Diabetes mellitus with complications (3 sources) Hyperglycemia due to type 2 diabetes mellitus; Translations: [Type 2 diabetes mellitus with hyperglycemia] Onset: 05-30-2023 05-30-2023 Chronic Diabetes mellitus without complication (9 sources) Diabetes mellitus; Translations: [Type 2 diabetes mellitus without complications] Onset: 03-07-2022 03-06-2016 Chronic Essential hypertension (9 sources) Essential hypertension; Translations: [Essential (primary) hypertension] Onset: 03-07-2022 04-12-2019 Chronic Malaise and fatigue (6 sources) Fatigue 02-09-2020 Episodic Osteoarthritis (20 sources) Inflammation of joint of foot; Translations: [Primary osteoarthritis, unspecified ankle and foot] Onset: 02-08-2022 02-08-2022 Chronic Other connective tissue disease (2 sources) Arthrodesis status; Translations: [Arthrodesis status] Onset: 05-31-2022 Episodic Other endocrine disorders (6 sources) Polycystic ovaries 03-06-2016 Chronic Other hereditary and degenerative nervous system conditions (6 sources) Restless legs 11-10-2019 Chronic Other nutritional; endocrine; and metabolic disorders (6 sources) Body mass index 40+ - severely obese 04-12-2019 Chronic Other nutritional; endocrine; and metabolic disorders (2 sources) Obesity, unspecified; Translations: [Obesity, unspecified] Onset: 03-07-2022 Chronic Other nutritional; endocrine; and metabolic disorders (2 sources) Body mass index (BMI) 45.0-49.9, adult; Translations: [Body mass index [BMI] 45.0-49.9, adult] Onset: 03-07-2022 Chronic Residual codes; unclassified (7 sources) Obstructive sleep apnea syndrome; Translations: [Obstructive sleep apnea (adult) (pediatric)] Onset: 08-13-2022 04-09-2019 Chronic Residual codes; unclassified (6 sources) Persistent insomnia 02-22-2020 Chronic Residual codes; unclassified (6 sources) Sleep apnea 03-06-2016 Chronic Residual codes; unclassified (2 sources) Obstructive sleep apnea (adult) (pediatric); Translations: [Obstructive sleep apnea (adult) (pediatric)] Onset: 03-07-2022 Chronic Rheumatoid arthritis and related disease (12 sources) Rheumatoid arthritis; Translations: [Rheumatoid arthritis, unspecified] Onset: 03-07-2022 03-06-2016 Chronic Skin and subcutaneous tissue infections (1 source) Cellulitis; Translations: [Cellulitis, unspecified] Onset: 12-01-2021 Episodic Thyroid disorders (9 sources) Hypothyroidism; Translations: [Hypothyroidism, unspecified] Onset: 03-07-2022 03-06-2016 Chronic Unclassified (7 sources) Patient encounter status 08-01-2020 Past or Other Problems Problem Classification Problem Date Documented Date Episodic/Chronic Acquired foot deformities (2 sources) Flat foot [pes planus] (acquired), left foot; Translations: [Flat foot [pes planus] (acquired), left foot] Onset: 02-08-2022 Episodic Allergic reactions (4 sources) Allergy status to sulfonamides status; Translations: [Allergy status to serum and vaccine status] Onset: 03-07-2022 Episodic E Codes: Fall (2 sources) Unspecified fall, initial encounter; Translations: [Unspecified fall, initial encounter] Onset: 03-07-2022 Episodic Fracture of lower limb (2 sources) Unspecified fracture of left foot, subsequent encounter for fracture with nonunion; Translations: [Unspecified fracture of left foot, subsequent encounter for fracture with nonunion] Onset: 04-16-2023 Episodic Genitourinary symptoms and ill-defined conditions (2 sources) Unspecified symptoms and signs involving the genitourinary system; Translations: [Unspecified symptoms and signs involving the genitourinary system] Onset: 10-04-2021 Episodic Menopausal disorders (2 sources) Hormone replacement therapy; Translations: [Hormone replacement therapy] Onset: 03-07-2022 Episodic Other aftercare (2 sources) 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; Translations: [Other penitentiary (current) drug therapy] Onset: 03-07-2022 Episodic Other connective tissue disease (2 sources) Calcaneal spur, left foot; Translations: [Calcaneal spur, left foot] Onset: 02-08-2022 Episodic Other non-traumatic joint disorders (2 sources) Osteophyte, left foot; Translations: [Osteophyte, left foot] Onset: 02-08-2022 Episodic Sprains and strains (20 sources) Rupture of tendon of lower limb; Translations: [Strain of muscle(s) and tendon(s) of anterior muscle group at lower leg level, left leg, initial encounter] Onset: 02-08-2022 02-08-2022 Episodic Results Test Name Value Interpretation Reference Range Facil ity Vital Signs Date Time Vital Sign Value Performing Clinician Faci lity 09-03-2023 13:19-0500 Body height 165.1 cm Simone Amin MD Work Phone: [facility] 09-03-2023 13:19-0500 Body mass index (BMI) [Ratio] 45.76 kg/m2 Simone Amin MD Work Phone: [facility] 09-03-2023 13:19-0500 Body weight 124.74 kg Simone Amin MD Work Phone: [facility] 07-23-2023 13:02-0500 Body height 165.1 cm Simone Amin MD Work Phone: [facility] [employer] [facility] 07-23-2023 13:02-0500 Body mass index (BMI) [Ratio] 45.76 kg/m2 Simone Amin MD Work Phone: [facility] 07-23-2023 13:02-0500 Body weight 124.74 kg Simone Amin MD Work Phone: [facility] 06-12-2023 15:45-0400 Body temperature 97.5 [degF] Simone Amin MD Work Phone: [facility] 06-12-2023 15:45-0400 Diastolic blood pressure 86 mm[Hg] Simone Amin MD Work Phone: [facility] 06-12-2023 15:45-0400 Heart rate 80 /min Simone Amin MD Work Phone: [facility] 06-12-2023 15:45-0400 Respiratory rate 18 /min Simone Amin MD Work Phone: [facility] 06-12-2023 15:45-0400 SaO2% (BldA) [Mass fraction] 95 % Simone Amin MD Work Phone: [facility] 06-12-2023 15:45-0400 Systolic blood pressure 143 mm[Hg] Simone Amin MD Work Phone: [facility] 04-16-2023 11:35-0400 Body height 165.1 cm Simone Amin MD Work Phone: [facility] 04-16-2023 11:35-0400 Body mass index (BMI) [Ratio] 47.43 kg/m2 Simone Amin MD Work Phone: [facility] 04-16-2023 11:35-0400 Body weight 129.28 kg Simone Amin MD Work Phone: [facility] 08-14-2022 09:07-0500 Heart rate 60 /min DR TOLU FRANCO MD [facility] 08-14-2022 09:07-0500 Respiratory rate 16 /min DR TOLU FRANCO MD [facility] 08-14-2022 07:33-0500 Body temperature 96.98 [degF] DR TOLU FRANCO MD [facility] 08-14-2022 07:33-0500 Diastolic Blood Pressure Non-Invasive [address] TOLU FRANCO MD [facility] 08-14-2022 07:33-0500 Heart rate 64 /min DR TOLU FRANCO MD [facility] 08-14-2022 07:33-0500 Reason For Taking VItal Signs DR TOLU FRACNO MD [facility] 08-14-2022 07:33-0500 Respiratory rate 18 /min DR TOLU FRANCO MD [facility] 08-14-2022 07:33-0500 Systolic Blood Pressure Non-Invasive [address] TOLU FRANCO MD [facility] 08-14-2022 04:29-0500 Body temperature 97.34 [degF] DR TOLU FRANCO MD [facility] 08-14-2022 04:29-0500 Diastolic Blood Pressure Non-Invasive [address] TOLU FRANCO MD [facility] 08-14-2022 04:29-0500 Heart rate 60 /min DR TOLU FRANCO MD [facility] 08-14-2022 04:29-0500 Reason For Taking VItal Signs DR TOLU FRANCO MD [facility] 08-14-2022 04:29-0500 Respiratory rate 18 /min DR TOLU FRANCO MD [facility] 08-14-2022 04:29-0500 Systolic Blood Pressure Non-Invasive [address] TOLU FRANCO MD [facility] 08-13-2022 23:30-0500 Body temperature 97.7 [degF] DR TOLU FRANCO MD [facility] 08-13-2022 23:30-0500 Diastolic Blood Pressure Non-Invasive [address] TOLU FRANCO MD [facility] 08-13-2022 23:30-0500 Heart rate 63 /min DR TOLU FRANCO MD [facility] 08-13-2022 23:30-0500 Reason For Taking VItal Signs DR TOLU FRANCO MD [facility] 08-13-2022 23:30-0500 Systolic Blood Pressure Non-Invasive [address] TOLU FRANCO MD [facility] 08-13-2022 19:20-0500 Heart rate 88 /min DR TOLU FRANCO MD [facility] 08-13-2022 11:43-0500 Body height 165.[address] TOLU FRANCO MD [facility] 08-13-2022 11:43-0500 Body weight 125.[address] TOLU FRANCO MD [facility] 08-13-2022 11:43-0500 Body weight 45.93 kg/m2 DR TOLU FRANCO MD [facility] 08-13-2022 10:08-0500 Body temperature 96.8 [degF] DR TOLU FRANCO MD [facility] 08-13-2022 10:05-0500 Respiratory Rate - Anes 0 br/min DR TOLU FRANCO MD [facility] 08-13-2022 10:00-0500 Respiratory Rate - Anes 18 br/min DR TOLU FRANCO MD [facility] 08-13-2022 09:55-0500 Respiratory Rate - Anes 17 br/min DR TOLU FRANCO MD [facility] 08-13-2022 07:44-0500 Heart rate 75 /min DR TOLU FRANCO MD [facility] 08-13-2022 07:11-0500 Body height 165.[address] TOLU FRANCO MD [facility] 08-13-2022 07:11-0500 Body temperature 98.24 [degF] DR TOLU FRANCO MD [facility] 08-13-2022 07:11-0500 Body weight 126.[address] TOLU FRANCO MD [facility] 08-13-2022 07:11-0500 Heart rate 76 /min DR TOLU FRANCO MD [facility] 07-29-2022 08:30-0500 Body height 165.[address] TOLU FRANCO MD [facility] 07-29-2022 08:30-0500 Body weight 126.[address] TOLU FRANCO MD [facility] 07-29-2022 08:30-0500 Body weight 46.41 kg/m2 DR TOLU FRANCO MD [facility] 07-29-2022 08:30-0500 diastolic 82 mm[Hg] DR TOLU FRANCO MD [facility] 07-29-2022 08:30-0500 Heart rate 76 /min DR TOLU FRANCO MD [facility] 07-29-2022 08:30-0500 Respiratory rate 16 /min DR TOLU FRANCO MD [facility] 07-29-2022 08:30-0500 systolic 128 mm[Hg] DR TOLU FRANCO MD [facility] 03-07-2022 14:29-0400 Diastolic blood pressure 65 mm[Hg] Simone Amin MD Work Phone: [facility] 03-07-2022 14:29-0400 Heart rate 88 /min Simone Amin MD Work Phone: [facility] 03-07-2022 14:29-0400 Respiratory rate 22 /min Simone Amin MD Work Phone: [facility] 03-07-2022 14:29-0400 SaO2% (BldA) [Mass fraction] 95 % Simone Amin MD Work Phone: [facility] 03-07-2022 14:29-0400 Systolic blood pressure 114 mm[Hg] Simone Amin MD Work Phone: [facility] 03-07-2022 13:22-0400 Body temperature 97.39 [degF] Simone Amin MD Work Phone: [facility] 03-07-2022 07:57-0400 Body height 165.1 cm Simone Amin MD Work Phone: [facility] 03-07-2022 07:57-0400 Body mass index (BMI) [Ratio] 45.93 kg/m2 Simone Amin MD Work Phone: [facility] 03-07-2022 07:57-0400 Body weight 125.19 kg Simone Amin MD Work Phone: [facility] 02-14-2022 10:56-0400 Body temperature 97.11 [degF] Simone Amin MD Work Phone: [facility] 02-14-2022 10:56-0400 Diastolic blood pressure 84 mm[Hg] Simone Amin MD Work Phone: [facility] 02-14-2022 10:56-0400 Heart rate 75 /min Simone Amin MD Work Phone: [facility] 02-14-2022 10:56-0400 Respiratory rate 16 /min Simone Amin MD Work Phone: [facility] 02-14-2022 10:56-0400 SaO2% (BldA) [Mass fraction] 97 % Simone Amin MD Work Phone: [facility] 02-14-2022 10:56-0400 Systolic blood pressure 145 mm[Hg] Simone Amin MD Work Phone: [facility] 02-14-2022 10:56-0400 Body height 165.1 cm Simone Amin MD Work Phone: [facility] 02-14-2022 10:56-0400 Body mass index (BMI) [Ratio] 45.99 kg/m2 Simone Amin MD Work Phone: [facility] 02-14-2022 10:56-0400 Body weight 125.36 kg Simone Amin MD Work Phone: [facility] 12-01-2021 12:51-0400 Diastolic blood pressure 75 mm[Hg] FELIBERTO CARDOSO MD [facility] 12-01-2021 12:51-0400 Heart rate 78 /min FELIBERTO CARDOSO MD [facility] 12-01-2021 12:51-0400 Respiratory rate 18 /min FELIBERTO CARDOSO MD [facility] 12-01-2021 12:51-0400 Systolic blood pressure 145 mm[Hg] FELIBERTO CARDOSO MD [facility] 12-01-2021 12:06-0400 Body temperature 98.24 [degF] FELIBERTO CARDOSO MD [facility] 12-01-2021 12:06-0400 Diastolic blood pressure 85 mm[Hg] FELIBERTO CARDOSO MD [facility] 12-01-2021 12:06-0400 Heart rate 76 /min FELIBERTO CARDOSO MD [facility] 12-01-2021 12:06-0400 Respiratory rate 18 /min FELIBERTO CARDOSO MD [facility] 12-01-2021 12:06-0400 Systolic blood pressure 167 mm[Hg] FELIBERTO CARDOSO MD [facility] Encounters Encounter Date Encounter Type Care Provider Facility Start: 09-03-2023 End: 09-03-2023 ambulatory [facility] Start: 09-03-2023 End: 09-03-2023 Postop follow up visit related to original px Simone Amin MD Work Phone: [facility] Procedures Date Procedure Procedure Detail Performing Clinician Start: 08-21-2023 Mammography Cameron aguilar DO Work Phone: Start: 06-12-2023 Glucose quantitative blood xcpt reagent strip Simone Amin MD Work Phone: Start: 06-12-2023 FL GUIDANCE OR USE O NLY - NON-RESULTABLE Simone Amin MD Work Phone: Start: 06-12-2023 Cul bact xcpt urine blood/stool aerobic isol Simone Amin MD Work Phone: Start: 04-16-2023 C-reactive protein Trip Amin MD Work Phone: Start: 04-16-2023 Calcium ionized Simone Amin MD Work Phone: Start: 04-16-2023 Complete blood count with white cell differential, automated Simone Amin MD Work Phone: Start: 08-28-2022 Mammography Rowan swann RN Start: 08-13-[address] TOLU FRANCO MD Plan of Treatment Date Care Activity Detail Author Start: 12-01-2031 DTaP/Tdap/Td vaccine (3 - Td or Tdap) DTaP/Tdap/Td vaccine (3 - Td or Tdap) [facility] Start: 12-01-2031 DTaP/Tdap/Td vaccine (4 - Td or Tdap) DTaP/Tdap/Td vaccine (4 - Td or Tdap) [facility] Start: 12-01-2031 DTaP/Tdap/Td Vaccines (4 - Td or Tdap) DTaP/Tdap/Td Vaccines (4 - Td or Tdap) [facility] Start: 2028 RSV Immunization aged 60 or older (1 - 1-dose 60+ series) RSV Immunization aged 60 or older (1 - 1-dose 60+ series) [facility] Start: 08-21-2024 Screening for malignant neoplasm of breast Mammogram [facility] Start: 05-30-2024 Hemoglobin A1c measurement Diabetes: Hemoglobin A1C [facility] Start: 10-29-2023 End: 10-29-2023 Patient encounter procedure 10/29/2023 1:00 PM EST Office Visit [facility] [address] [place] [address] Simone Amin MD [address] [place], [place] [id number] [facility] Start: 09-03-2023 End: 07-24-2024 XR Foot - left 3 Views XR foot 3+ views left Imaging Routine Nonunion after arthrodesis Expected: 09/03/2023, Expires: 07/24/2024 [facility] Work Phone: Immunizations Immunization Date Immunization Notes Care Provider Laure castaneda 11-30-2021 tetanus toxoid, redu arelis diphtheria toxoid, and acellular pertussis vaccine, adsorbed; Translations: [Boostrix (Tdap)] FELIBERTO CARDOSO MD [facility] 07-27-2021 SARS-CoV-2 mRNA (tozinameran) vaccine DR TOLU FRANCO MD [facility] Payers Date Payer Category Payer Unknown [id number] 2021 Unknown [id number] 2021 Unknown 1968 Unknown [id number] 2.16. [id number] 1968 Unknown [id number] 2.16. [id number] 1968 Unknown [id number] 2.16. [id number] 1968 Unknown [id number] 2.16. [id number] 1968 Unknown [id number] 2.16. [id number] 1968 Unknown [id number] 2.16.8 [id number] 1968 Unknown [id number] 2.16.8 [id number] 1968 Unknown [id number] 2.16.8 [id number] 1968 Unknown [id number] 2.16.8 [id number] 1968 Unknown [id number] 2.16.8 [id number] 1968 Unknown [id number] 2.16.8 [id number] 1968 Unknown [id number] 2.16.8 [id number] Social History Date Type Detail Facility Start: 05-17-2019 End: 03-22-2022 Never smoked tobacco (finding) [facility] Procedure Code Equipment Code Equipment Origin al Text Equipment Identifier Dates FDA Start: 01-05-2019 FDA Start: 01-05-2019 FDA Start: 01-05-2019 FDA Start: 01-05-2019 FDA Start: 01-05-[address] Strips Start: 04-02-2021 FDA Start: 01-05-2019 FDA Start: 01-05-2019 FDA Start: 01-05-2019 FDA Start: 01-05-2019 FDA Start: 01-05-[address] Strips Start: 04-02-2021 FDA Start: 01-05-2019 FDA Start: 01-05-2019 FDA Start: 01-05-2019 FDA Start: 01-05-2019 FDA Start: 01-05-[address] Strips Start: 04-02-2021 FDA Start: 01-05-2019 FDA Start: 01-05-2019 FDA Start: 01-05-2019 FDA Start: 01-05-2019 FDA Start: 01-05-[address]ps Start: 04-02-2021 Unknown Unknown 01/05/19 Unknown Unknown FDA Start: 01-05-2019 FDA Start: 01-05-2019 FDA Start: 01-05-2019 FDA Start: 01-05-2019 FDA Start: 01-05-2019 See Instructions , Use 1 strip twice daily as directed One Touch Ultra Test strips Dx: E11.9, # 200 EA, 3 Refill(s), Pharmacy: [facility]/pharmacy #[id number], Diabetes, 164, cm, 12/11/21 15:33:00 EDT, Height, 129.2, kg, 12/11/21 15:33:00 EDT, Dosing Weight Start: 05-14-2022 Unknown Unknown 01/05/19 Unknown Unknown FDA Start: 01-05-2019 FDA Start: 01-05-2019 FDA Start: 01-05-2019 FDA Start: 01-05-2019 FDA Start: 01-05-2019 See Instructions , Use 1 strip twice daily as directed One Touch Ultra Test strips Dx: E11.9, # 200 EA, 3 Refill(s), Pharmacy: [facility]/pharmacy #[id number], Diabetes, 164, cm, 12/11/21 15:33:00 EDT, Height, 129.2, kg, 12/11/21 15:33:00 EDT, Dosing Weight Start: 05-14-2022 Graft Bn Osteoce l Plus 5cc - [id number] - [id number] Start: 06-12-2023 Screw [id number] Start: 06-12-2023 Screw [id number] Start: 06-12-2023 Screw [id number] Start: 06-12-2023 Functional Status Date Assessment Result Facility 08-14-2022 Functional Status Door open, Room check performed [facility] 08-14-2022 Functional Status [address] [place] [facility] 08[facility]14[facility]22 Functional Status bilateral knee high [facility] 08-14-2022 Functional Status [facility] 08-13-2022 Functional Status [facility] 08-13-2022 Functional Status Demonstrates C orrect Call Light Use Yes [facility] 08-13-2022 Functional Status Dinner Percent 75 [facility] 08-13-2022 Functional Status [facility] 08-13-2022 Functional Status Lunch Percent 50 [facility] 08-13-2022 Functional Status Single level home [facility] 08-13-2022 Functional Status ice on, tension pillow in place [facility] 08-13-2022 Functional Status Maintained [facility] ashlee [place] Mental Status Date Assessment Result Facility 08-14-2022 Mental Status Oriented x 4 [facility] 08-14-2022 Mental Status [facility] 08-14-2022 Mental Status [facility] Clinical Notes 04-09-2021 to 09-03-2023 Simone Amin MD - 09/03/2023 1:00 PM Aparna Amin MD - 07/23/2023 1:30 PM DOMINICK Jack - 06/25/2023 1:30 PM EDTPerioperative Nursing Note - Angelique Cameron RN - 06/12/2023 3:45 PM EDT Note Date & Type Note Facility 09-03-2023 History of Presen t illness Narrative [facility] [address] [place] [phone] Dept: [phone] Dept Pravin Amirah 1970 [id number] 09/03/2023 HISTORY OF PRESENT ILLNESS: Pravin is here for her 3 month(s) postoperative visit 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 Pravin reports that her pain has decreased since the surgery/last visit Pravin reports that her swelling has decreased since the last visit Pravin had been instructed to be weight bearing as tolerated on the left lower extremity. Pravin has been compliant with her weight bearing restrictions Pravin has not started therapy yet Pravin denies fevers and chills and has not had calf pain or shortness of breath In general Pravin feels that she has been doing well since the surgery Other issues or concerns that Pravin would like addressed at this visit: she has no other issues or concerns to discuss Review of Systems Surgical Risk Factors: Allergies to Metals or Latex: NO Have you been treated for a blood clot: NO Have you had a history of bleeding disorder: NO Have you had a history of Anesthetic problems: NO Do you have tendency to bruise easily: NO Do you experience prolonged or excessive bleeding from cuts or after surgery: NO General/Constitutional: General: no Cancer: NO Acute/Chronic Infections: NO HEENT/Neck: Problems with theThroat: NO Problems with the Eyes: NO Problems with the Ears: NO Problems with the Nose and Sinuses: NO Endocrine: Problems with Diabetes: yes Problems with Thyroid Disorder: NO Thorax: Problems with the Heart: NO Problems with the Lung: no Cardiovascular: Problems with Circulation: NO Problems with High Blood pressure: yes Gastrointestinal: Problems with Ulcers: NO Problems with the Liver: no Problems with Bowel Habits: NO Genitourinary: Problems with the Genitals: NO Urinary problems: NO Kidney disease or stones: NO Skin: Any general problems: NO Neurologic: Dizziness, blurred vision, headaches, problems with balance : NO Seizures or Stroke: NO Psychiatric: Emotional or Psychological disorders: NO Depression or Anxiety: no PAST MEDICAL HISTORY: Past Medical History: Diagnosis Date Anemia Arthritis rheumatoid Chronic pain disorder Diabetes mellitus (HCC) GERD (gastroesophageal reflux disease) H/O cardiovascular stress test negative Hypertension Liver disease fatty liver Sleep apnea cpap is worn Thyroid disease Allergies Allergen Reactions Influenza Virus Vaccine Rash Sulfa Antibiotics Rash PHYSICAL EXAM: This is an age appropriate appearing female who is alert and oriented x 3. The patient appears well nourished. The patient is able to verbalize normally and seems to have a good understanding of her situation. Normocephalic and atraumatic Respiratory: No shortness of breath The left lower extremity is examined. Skin: warm and dry Lymphatic: Minimal swelling of the hindfoot and midfoot Vascular: Capillary refill in the foot/toes is brisk Neurologic: Sensation is intact except over the surgical incision site(s) Musculoskeletal: The calf is nontender to palpation. The patient is able to actively move the ankle/foot/toes The tarsal sinus and medial hindfoot/midfoot incisions are healed and benign Tenderness: no areas of tenderness on exam Gait: Ambulates with a mild limp RADIOGRAPHIC INTERPRETATION: 3 weight bearing views of the left foot were obtained and the following is my interpretation of the findings present of the X-rays: Interval bone healing is noted at the calcaneocuboid fusion site. The screw crossing the fusion site is intact no signs of loosening or failure. The talonavicular fusion site is still visible with a small amount of bony healing. The screws crossing the talonavicular joint are intact with no signs of loosening or failure. The screw across the subtalar joint is intact with no signs of loosening or failure REVIEW OF RELATED PREVIOUS DOCUMENTATION: No documents related to the current problem(s) were reviewed or no documents were available for review. 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 Her back is doing much better than she was prior to the revision surgery. We discussed having her transition out of the Aircast boot to a regular shoe and seeing her back in about 2 months for reevaluation after she has been in a shoe and new x-rays. I want Pravin to start transitioning from her aircast boot to a good supportive shoe. I want Pravin to start by trying to walk in her shoe for one hour today and increase her shoe wear by one hour per day until she is able to spend a whole day in the shoe without pain. I instructed Pravin to put the aircast boot back on if she starts to have increasing pain or swelling that is uncomfortable. I want Pravin to start with a good stable shoe that will allow for swelling if present. If she is having trouble making the transition from the aircast boot to a a good supportive shoe over the next few weeks then I want Pravin to call me. Xray needed at next visit: Left foot 3 weight bearing views Follow up in about 2 months (around 11/04/2023) for Pre-visit Imaging. Electronically signed by Simone Amin MD [facility] Department of Orthopedic surgery 09/03/2023 1:44 PM Voice recognition was used for portions of this note and although it was reviewed prior to signing some incorrect words or phrases could be present. documented in this encounter [facility] 07-23-2023 History of Presen t illness Narrative Images from the original note were not included. [facility] [address] [place] [address] [place] [phone] Dept: [phone] Dept Pravin Melo 1970 [id number] 07/23/2023 HISTORY OF PRESENT ILLNESS: Pravin is here for her postoperative visit s/p #1 Left Talonavicular joint fusion, #2 removal deep implant left foot, DOS 06/12/23 Pravin reports that her pain has been minimal Pravin reports that her swelling has been minimal Pravin had been instructed to be nonweight bearing on the left lower extremity. Pravin has been compliant with her weight bearing restrictions Pravin has not started therapy yet Pravin denies fevers and chills and has not had calf pain or shortness of breath In general Pravin feels that she has been doing well since the surgery Other issues or concerns that Pravin would like addressed at this visit: she has no other issues or concerns to discuss Review of Systems Surgical Risk Factors: Allergies to Metals or Latex: NO Have you been treated for a blood clot: NO Have you had a history of bleeding disorder: NO Have you had a history of Anesthetic problems: NO Do you have tendency to bruise easily: NO Do you experience prolonged or excessive bleeding from cuts or after surgery: NO General/Constitutional: General: no Cancer: NO Acute/Chronic Infections: NO HEENT/Neck: Problems with theThroat: NO Problems with the Eyes: NO Problems with the Ears: NO Problems with the Nose and Sinuses: NO Endocrine: Problems with Diabetes: NO Problems with Thyroid Disorder: NO Thorax: Problems with the Heart: NO Problems with the Lung: no Cardiovascular: Problems with Circulation: NO Problems with High Blood pressure: NO Gastrointestinal: Problems with Ulcers: NO Problems with the Liver: no Problems with Bowel Habits: NO Genitourinary: Problems with the Genitals: NO Urinary problems: NO Kidney disease or stones: NO Skin: Any general problems: NO Neurologic: Dizziness, blurred vision, headaches, problems with balance : NO Seizures or Stroke: NO Psychiatric: Emotional or Psychological disorders: NO Depression or Anxiety: no PAST MEDICAL HISTORY: Past Medical History: Diagnosis Date Anemia Arthritis rheumatoid Chronic pain disorder Diabetes mellitus (HCC) GERD (gastroesophageal reflux disease) H/O cardiovascular stress test negative Hypertension Liver disease fatty liver Sleep apnea cpap is worn Thyroid disease Allergies Allergen Reactions Influenza Virus Vaccine Rash Sulfa Antibiotics Rash PHYSICAL EXAM: This is an age appropriate appearing female who is alert and oriented x 3. The patient appears well nourished. The patient is able to verbalize normally and seems to have a good understanding of her situation. Normocephalic and atraumatic Respiratory: No shortness of breath The left lower extremity is examined. Skin: ruborous in a dependent position Lymphatic: Moderate swelling of the hindfoot and midfoot Vascular: Capillary refill in the foot/toes is brisk Neurologic: Sensation is intact except over the surgical incision site(s) Musculoskeletal: The calf is nontender to palpation. The patient is able to actively move the ankle/foot/toes The medial and lateral hindfoot/midfoot incisions are healed and benign Tenderness: no areas of tenderness on exam Gait: Gait not evaluated RADIOGRAPHIC INTERPRETATION: 3 nonweightbearing views of the left foot were obtained and the following is my interpretation of the findings present of the X-rays: Interval bone healing is noted at the calcaneal cuboid nonunion site. The screw crossing the joint is intact no signs of loosening or failure. The talonavicular joint still lacks bone formation at the fusion site. The hardware crossing the fusion site appears to be intact except for the previously noted broken screw from the original surgery. No other abnormalities is are noted. REVIEW OF RELATED PREVIOUS DOCUMENTATION: No documents related to the current problem(s) were reviewed or no documents were available for review. 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 I want to see Pravin back in 6 weeks. She can begin to put weight on the Left lower extremity in the boot gradually progressing to WBAT over the next 6 weeks. Pravin can continue to remove her boot for sleep, for bathing, anytime she is sitting or laying down and for ROM exercises which were discussed and demonstrated today. Anytime she is up moving around she needs to have the boot on for weightbearing activities. Pravin and I discussed physical therapy and she declined a referral but understands that she can call for a referral if she changes her mind. If Pravin has any questions or concerns regarding her foot/ankle she was instructed to call me 31/03. Pravin was comfortable with the plan. Xray needed at next visit: Left foot 3 weight bearing views Follow up in 6 weeks (on 09/03/2023) for post op in 6 weeks. Electronically signed by Simone Amin MD [facility] Department of Orthopedic surgery 07/23/2023 1:11 PM Voice recognition was used for portions of this note and although it was reviewed prior to signing some incorrect words or phrases could be present. documented in this encounter [facility] 06-25-2023 History of Presen t illness Narrative Images from the original note were not included. [facility] [address] [place] [address] [place] [phone] Dept: [phone] Dept Pravin Amirah 1970 [phone] 06/25/2023 HISTORY OF PRESENT ILLNESS: Pravin is here for her 2 week(s) postoperative visit s/p #1 Left Talonavicular joint fusion, #2 removal deep implant left foot Pravin reports that her pain has decreased since the surgery/last visit Pravin reports that her swelling has decreased since the last visit Pravin had been instructed to be nonweight bearing on the left lower extremity. Pravin has been compliant with her weight bearing restrictions Pravin denies fevers and chills and has not had calf pain or shortness of breath In general Pravin feels that she has been doing well since the surgery Other issues or concerns that Pravin would like addressed at this visit: she has no other issues or concerns to discuss Review of Systems PAST MEDICAL HISTORY: Past Medical History: Diagnosis Date Anemia Arthritis rheumatoid Chronic pain disorder Diabetes mellitus (HCC) GERD (gastroesophageal reflux disease) H/O cardiovascular stress test negative Hypertension Liver disease fatty liver Sleep apnea cpap is worn Thyroid disease Allergies Allergen Reactions Influenza Virus Vaccine Rash Sulfa Antibiotics Rash PHYSICAL EXAM: This is an age appropriate appearing female who is alert and oriented x 3. The patient appears well nourished. The patient is able to verbalize normally and seems to have a good understanding of her situation. Normocephalic and atraumatic Respiratory: No shortness of breath The left lower extremity is examined. Skin: ruborous in a dependent position Lymphatic: Moderate swelling of the midfoot and forefoot Vascular: Capillary refill in the foot/toes is brisk Neurologic: Sensation is intact except over the surgical incision site(s) Musculoskeletal: The calf is nontender to palpation. The patient is able to actively move the ankle/foot/toes The incision is healing well with good skin approximation and no drainage. Sutures removed in office. Tenderness: no areas of tenderness on exam Gait: Gait not evaluated RADIOGRAPHIC INTERPRETATION: No xrays were obtained or reviewed REVIEW OF RELATED PREVIOUS DOCUMENTATION: No documents related to the current problem(s) were reviewed or no documents were available for review. 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 Pravin is doing well overall. We discussed the plan moving forward. Pravin will be seen back in 4 weeks. Elevation Instructions: Pravin can have the foot/ankle down in a dependent position for as long as it is comfortable and should elevate if the foot/ankle becomes uncomfortable. Dressing instructions: Pravin was instructed to start wearing a sock after today's visit Shoe/Boot Instructions: Pravin was placed in an aircast boot today and given instructions on how to put it on and take it off and how to care for the boot. We explained that each time the boot is taken off the air needs to be removed from the boot so that when Pravin puts it on the next time, her foot/ankle will fit properly. We explained that the foot and ankle should fit securely in the boot only on correctly and filled with enough air to make it snug but not tight. If Pravin has pain caused by the boot or if she has any skin irritation from the boot, she was instructed to remove the boot and call the office for instructions. Pravin can take the boot off for sleep, for bathing and to work on ROM of herankle, foot and toes several times a day. Pravin can remove her boot for sleep, for bathing, anytime they are sitting or laying down and for ROM exercises which were discussed and demonstrated today. Weight Bearing Instructions: Pravin was instructed to be nonweight bearing on the left lower extremity in the aircast boot. If Pravin has any problems maintaining this weight bearing status she was instructed to call me so that appropriate instructions can be given. Medications: No medication prescriptions were given/sent at today's visit. Xray at next visit: 3 nonweight bearing views Left foot Follow up in about 4 weeks (around 07/23/2023) for Visit with Imaging, Post-Op. Electronically signed by DOMINICK Potter [facility] Department of Orthopedic surgery 06/25/2023 1:40 PM Voice recognition was used for portions of this note and although it was reviewed prior to signing some incorrect words or phrases could be present. documented in this encounter [facility] 06-12-2023 Note Patient: Pravin Neves er Procedure Summary Date: 06/12/23 Room / Location: [address] Operating Room Anesthesia Start: 1132 Anesthesia Stop: 1405 Procedures: LEFT FOOT REMOVAL DEEP IMPLANT, REVISION CALCANEOCUBOID JOINT AND TALONAVICULAR JOINT ARTHRODESIS (Left: Foot) ARTHRODESIS FOOT MIDTARSAL OR METATARSAL WITH OSTEOTOMY (Left: Foot) Diagnosis: Pseudarthrosis after fusion or arthrodesis (Pseudarthrosis after fusion or arthrodesis [M96.0]) Surgeons: Simone Amin MD Responsible Provider: Iain Olvera Jr., MD Anesthesia Type: general, regional ASA Status: 3 Anesthesia Type: general, regional Vitals Value Taken Time BP 132/85 06/12/23 1407 Temp 98.6 06/12/23 1407 Pulse 85 06/12/23 1407 Resp 21 06/12/23 1407 SpO2 96 06/12/23 1407 Anesthesia Post Evaluation Patient location during evaluation: PACU Patient participation: complete - patient participated Level of consciousness: awake and alert Pain management: satisfactory to patient Airway patency: patent Dental Injury: no Cardiovascular status: acceptable, blood pressure returned to baseline and hemodynamically stable Respiratory status: acceptable and spontaneous ventilation Hydration status: euvolemic Nausea/Vomiting: controlled No notable events documented. Patient can be discharged once all PACU criteria has been met. [facility] 06-12-2023 Note Patient: Pravin Neves er Procedure Summary Date: 06/12/23 Room / Location: [address] Operating Room Anesthesia Start: 1132 Anesthesia Stop: 1405 Procedures: LEFT FOOT REMOVAL DEEP IMPLANT, REVISION CALCANEOCUBOID JOINT AND TALONAVICULAR JOINT ARTHRODESIS (Left: Foot) ARTHRODESIS FOOT MIDTARSAL OR METATARSAL WITH OSTEOTOMY (Left: Foot) Diagnosis: Pseudarthrosis after fusion or arthrodesis (Pseudarthrosis after fusion or arthrodesis [M96.0]) Surgeons: Simone Amin MD Responsible Provider: Iain Olvera Jr., MD Anesthesia Type: general, regional ASA Status: 3 Anesthesia Type: general, regional Anesthesia Post Evaluation Patient location during evaluation: PACU Patient participation: complete - patient participated Level of consciousness: awake and alert Pain management: satisfactory to patient Multimodal analgesia pain management approach Airway patency: patent Two or more strategies used to mitigate risk of obstructive sleep apnea Cardiovascular status: acceptable and hemodynamically stable Respiratory status: acceptable Hydration status: acceptable No notable events documented. MIPS #430 PONV Patient received an inhalational anesthetic (4554F) Patient exhibits three or more risk factors for PONV (4556F) Patient received at leaset 2 prophylactic Rx PONV anti-emtic agents of different classes preop and/or intraop (G9775) MIPS # 424 Perioperative Temperature Management Anesthesia time was 60 minutes or longer (4255F) Anesthesai administered was General (inhalational or TIVA) or Neuraxial block (X0424) At least one body temperature greater than 95.8F/35.5C achieved within the 30 mins immediately prior to or the 15 minutes immediately following anesthesia end time (G9771) MIPS #477 Multimodal Pain Management Not emergent case Patient was administered multimodal pain management (two or more drugs and/or interventions excluding systemic opioids) in the periopeartive period occurring at some time between 6 hours prior to anesthesia start time until discharged from PACU (G2148) MIPS #404 Anesthesiology Smoking Abstinence The patient is not a current smoker (e.g. cigarette, cigar, pipe, e-cigarette/vaping/marijuana) If no stop here (G9644) I completed my handoff to the receiving clinician during which we: 1. Identified the patient 2. Identified the responsible provider 3. Reviewed the pertinent medical history 4. Discussed the surgical course 5. Reviewed intra-op anesthesia management and issues during anesthesia 6. Set expectations for post-procedure period 7. Allowed opportunity for questions and acknowledgement of understanding. [facility] 06-12-2023 Miscellaneous Notes Patient assisted to/from BR via wheelchair. Patient able to dress self with help from . Discharge instructions reviewed with patient and , both verbalize understanding. No additional questions/concerns or complaints voiced. Patient continues use of incentive spirometer. O2 sats on room air remain above 92%. Patient denies SOB. +occ , strong cough. Patient out to car via wheelchair free of injury. Patient given incentive spirometer and instructed on use. Patient able to give correct return demonstration. +deep breathing and coughing exercises performed. Patient denies SOB/CP. Report given to Angelique Yin Pt MBS 184 Report off to Charles Rolle Received patient from OR to PACU with LABOR CONTRACT ANALYST. Patient is sedated on simple mask @6l. No respiratory distress noted. Patient is waking up, will respond to verbal stimuli. Monitor on, Rn bedside. Safety maintained. Pre-operative Diagnosis: left Talonavicular joint arthrodesis non-union Post-operative Diagnosis: Same Procedure: #1 Left Talonavicular joint fusion, #2 removal deep implant left foot Components used: Arthrex 5.0 mm and 7.0 mm headless compression screws Anesthesia: General + popliteal block Medications: Ancef 2 g IV, TXA 1 g IV Surgeon: Brennan Assistants: Melani Bueno Estimated Blood Loss: 100 mL Complications: None Specimens: Culture taken at the TNJ nonunion site Operative findings: The Left talonavicular fusion was found to be nonunited. The previously placed screws were broken and the distal ends of the two more medial screws were removed. The joint was fused with the talar head being completely covered by the navicular and the hindfoot in 5 degrees of valgus. An additional 7 mm headless compression screw was placed across the calcaneocuboid joint percutaneously to add addition stability to the transverse tarsal joint. Solid internal fixation in compression was achieved through the fusion site. 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 She failed non-surgical treatments for the nonunions and I therefore recommended the above procedure. Despite the risks of the surgery Pravin consented to proceed. Operative report: I met with Pravin in the preoperative area prior to the procedure and discussed the surgical plan once again and answered all of her questions related to the procedure and the expected post-operative course. The risks of surgery were discussed including but not limited to the risks of medications given for surgery, the risk of blood loss during and after surgery that can lead to the need for blood products in certain situations, infection, damage to normal structures that can lead to equipment operator intermodal yard problems of pain or dysfunction, wound healing complications, the possibility of nonunion, malunion and late or chronic pain were also discussed. In addition potentially life threatening complications at the time of surgery and after surgery were discussed including but not limited to deep vein thrombosis, pulmonary embolism, myocardial infarction, stroke and . I initialed her Left lower extremity and signed her consent form. she was then taken for a popliteal block by the anesthesia staff. Following the block she was brought to the operating room and placed in the supine position on the Operating Room table. Care was taken to identify and pad all bony prominences. A general anesthetic was then given by the anesthesia staff and an endotracheal tube was placed by the anesthesia staff. At all times during the operative procedure the patient's head neck and airway were protected by the anesthesia staff. A tourniquet was applied to the right proximal thigh over cast padding. Total tourniquet time was less than 2 hours. The Left lower extremity was then prepped and draped in the usual orthopedic sterile fashion. A surgical timeout was then performed with the patient's identification, the procedure to be performed being reviewed, verification that the patient had received preoperative antibiotics, and verification of the correct surgical side. This timeout was performed by myself, the circulating room nurse and the anesthesia staff. The patient's ASA was verified by the nurse filer and sander and the anesthesia staff. Fire risk was assessed. An Esmarch bandage was then used to exsanguinate the limb. The tourniquet was then inflated. A longitudinal incision was placed midway between the anterior tibial tendon and the posterior tibial tendon overlying the talonavicular joint medially over the original medial incision site. The skin and subcutaneous tissues were divided any crossing vessels from the saphenous system were cauterized. The wound was deepened down to level of the talonavicular joint. The nonunited joint space was identified. The two medial screws were found and removed. A lamina mobile application tester was then placed within the TN joint and distraction was applied. The joint opened without difficulty. A culture was then obtained from the nonunion site. No signs of infection were present. Both opposing bone surfaces were prepped for fusion, removing all fibrous tissue, fully exposing bone on both side and then scaling both opposing bone surfaces with a small Chickasaw osteotome. The joint was then thoroughly irrigated with saline and then Osteocell allograft was placed in the fusion site. The joint was then manually compressed and guidepins for the 5 mm headless compression screws. The position of the guidepins was verified on images of the ankle and foot. Each pin was then measured and drilled. The appropriate length screws were placed and compression of the fusion site was achieved. Images were obtained in multiple planes of the foot and ankle to ensure proper position of the screws. A guide pin was then placed through the posterior aspect of the posterior tuberosity and was advanced through the calcaneus, across the calcaneocuboid joint and into the cuboid. Images were obtained in multiple planes of the foot to ensure proper position of the pin. Once verified, an incision was made at the pin site and the pin was measured. Drilling over the pin was performed and then the appropriate length 7 mm headless compression screw was placed. Images were obtained in multiple planes to ensure proper position of the screw. The tourniquet was then released and any active bleeding was controlled using Bovie cautery. The wound was thoroughly irrigated with copious amounts of sterile saline. The subcutaneous tissues were then closed utilizing 2-0 Vicryl. The skin was then closed utilizing monocryl. Dry sterile dressings were then applied and a well-padded posterior splint with the ankle in neutral dorsiflexion was placed. Pravin was then awakened from her anesthetic, transferred to her hospital bed and taken to the recovery room in stable medical condition. Post-operative plan: Follow-up: Pravin will follow-up in 2 weeks for her first post-operative check. Suture removal: her incision(s) was/were closed with buried suture and she will not need sutures removed Shoe instructions: At the first post-operative visit Pravin will be placed in a short Aircast boot and will be allowed to remove the boot for sleep, for bathing and for ROM of the foot and ankle. Weight bearing: Pravin will be instructed to be nonweight bearing on the left lower extremity in the aircast boot following the 2 week visit and this will be continued until the 6 week office visit. Follow-up plan with Dr Amin after 2 week visit: Pravin should be scheduled to see Dr Amin at 6 weeks post-op for re-evaluation X-rays at 6 week follow-up: Pravin will need 3 nonweight bearing views of the left foot at the 6 week post-op visit documented in this encounter [facility] 06-12-2023 Note Formatting of this n ote might be different from the original. Patient assisted to/from BR via wheelchair. Patient able to dress self with help from . Discharge instructions reviewed with patient and , both verbalize understanding. No additional questions/concerns or complaints voiced. Patient continues use of incentive spirometer. O2 sats on room air remain above 92%. Patient denies SOB. +occ , strong cough. Patient out to car via wheelchair free of injury. [facility] 06-12-2023 Note Formatting of this n ote might be different from the original. Patient given incentive spirometer and instructed on use. Patient able to give correct return demonstration. +deep breathing and coughing exercises performed. Patient denies SOB/CP. T [facility] 06-12-2023 Note Formatting of this n ote might be different from the original. Report given to Angelique Yin T [facility] 06-12-2023 Note Formatting of this n ote might be different from the original. Pt MBS 184 T [facility] 06-12-2023 Note Formatting of this n ote might be different from the original. Report off to Charles Rolle [facility] 06-12-2023 Note Formatting of this n ote might be different from the original. Received patient from OR to PACU with LABOR CONTRACT ANALYST. Patient is sedated on simple mask @6l. No respiratory distress noted. Patient is waking up, will respond to verbal stimuli. Monitor on, Rn bedside. Safety maintained. [facility] 06-12-2023 Note Airway Date/Time: 06/12/2023 11:47 AM Urgency: scheduled Airway not difficult General Information and Staff Patient location during procedure: Procedural Resident/LABOR CONTRACT ANALYST: Eli Fraga CRNA Performed: LABOR CONTRACT ANALYST Performed by: Eli Fraga LABOR CONTRACT ANALYST Authorized by: Eli Fraga CRNA Indications and Patient Condition Indications for airway management: anesthesia Sedation level: Asleep Preoxygenated: yes Mask difficulty assessment: 1 - vent by mask Final Airway Details Final airway type: endotracheal airway Successful airway: ETT Cuffed: yes Successful intubation technique: direct laryngoscopy Facilitating devices/methods: intubating stylet Blade: Cruzito Blade size: #3 ETT size (mm): 7.0 Cormack-Lehane Classification: grade I - full view of glottis Placement verified by: capnometry Measured from: lips ETT to lips (cm): 21 Number of attempts at approach: 1 Number of other approaches attempted: 0 [facility] 06-12-2023 Note Peripheral Block Time Out: 06/12/2023 10:48 AM Patient location during procedure: holding area Start time: 06/12/2023 10:49 AM End time: 06/12/2023 10:58 AM Reason for block: at surgeon's request and post-op pain management Staffing Performed: anesthesiologist Anesthesiologist: Iain Olvera Jr., MD Preanesthetic Checklist Completed: patient identified, IV checked, site marked, risks and benefits discussed, surgical consent, monitors and equipment checked, pre-op evaluation and timeout performed Region: Lower Extremities Primary: Popliteal Secondary: Saphenous Peripheral Block Patient position: supine Prep: ChloraPrep Patient monitoring: heart rate, continuous pulse ox and molding 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 Local infiltration: lidocaine Infiltration strength: 1 % Dose: 3 mL Needle Needle: 22G X 80 mm Additional Notes 10 mL 0.5% Ropivacaine plain Saphenous 40 mL 0.375% Bupivacaine HCL with decadron sodium phosphate 0.01% & Epi 1:200,000 PF 06/12/2023 10:49 AM Assessment Injection assessment: negative aspiration for heme, no paresthesia on injection, incremental injection and local visualized surrounding nerve on ultrasound Paresthesia pain: none Heart rate change: no Slow fractionated injection: yes Required Documentation: Relevant anatomy identified (Nerves, Vessels, Muscles), Negative for blood on aspiration, Local anesthetic injected incrementally with intermittent aspiration every 5 mL, Normal resistance with injection, Local anesthetic spread visualized around nerves or plane., No EKG changes noted, No symptoms of toxicity and No paresthesias reported by patient during injection [facility] 06-12-2023 Note H&P reviewed. The pa tient was examined and there are no changes to the H&P. [facility] 06-12-2023 Note Patient: Pravin Neves er Procedure Information Date/Time: 06/12/23 1100 Procedures: LEFT FOOT REMOVAL DEEP IMPLANT, REVISION CALCANEOCUBOID JOINT AND TALONAVICULAR JOINT ARTHRODESIS (Left: Foot) - 2.5 hours ARTHRODESIS FOOT MIDTARSAL OR METATARSAL WITH OSTEOTOMY (Left: Foot) Location: [address] Operating Room Surgeons: Simone Amin MD Relevant Problems Other (+) Arthritis of foot Past Medical History: Past Medical History: No date: Anemia No date: Arthritis Comment: rheumatoid No date: Chronic pain disorder No date: Diabetes mellitus (HCC) No date: GERD (gastroesophageal reflux disease) No date: H/O cardiovascular stress test Comment: negative No date: Hypertension No date: Liver disease Comment: fatty liver No date: Sleep apnea Comment: cpap is worn No date: Thyroid disease Past Surgical History: Past Surgical History: No date: SECTION (HISTORICAL) Comment: times 2 1987. 1988 No date: CHOLECYSTECTOMY No date: COLONOSCOPY No date: ENDOMETRIAL ABLATION 03/07/2022: FOOT SURGERY; Left Comment: DR AMIN 2021: JOINT REPLACEMENT; Bilateral Comment: knee- tanna spain No date: KNEE ARTHROSCOPY Comment: times 2- right knee melisa, left knee hayder No date: SEPTOPLASTY Comment: missael No date: THYROID SURGERY Comment: 2006- hayder No date: TUBAL LIGATION No date: WISDOM TOOTH EXTRACTION Social History: TOBACCO: reports that she has never smoked. She has never used smokeless tobacco. ETOH: reports no history of alcohol use. Social History Substance and Sexual Activity Drug Use Never Family History: No family history on file. Screening: Ablation Clinical information reviewed: Tobacco Allergies Meds Med Hx Surg Hx OB Status Fam Hx Soc Hx Physical Exam Airway Mallampati: III TM distance: >3 FB Neck ROM: limited Mouth Open: normal Cardiovascular Dental dentition normal Pulmonary Abdominal Other findings: GERD controlled - on no Medications On semaglutide (Ozempic, Rybelsus) - takes orally none today Anesthesia Plan patient is NPO appropriate Any family history or previous problems with anesthesia no ASA 3 general and regional Any family history or previous problems with anesthesia no (Popliteal/Saphenous Discussed regional anesthesia for post operative pain reduction, all benefits and risks/complications. All questions were answered. Patient consents to a regional anesthesia for post operative pain control.) The patient is not a current smoker. Anesthetic plan and risks discussed with patient. ERAS Type Tylenol, Pepcid TIFFANIE Screening Labs: Lab Results Component Value Date WBC 8.3 04/16/2023 HGB 15.7 (H) 04/16/2023 HCT 47.8 (H) 04/16/2023 MCV 82.1 04/16/2023 PLT 294 04/16/2023 No results found for: NA , K , CL , CO2 , BUN , CREATININE , GLUCOSE , CALCIUM , PROT , BILIRUBINFL , ALKPHOS , AST , ALT , EGFR , GLOB Pain Score: Scheduled 02/14/2022 SINUS RHYTHM LEFT AXIS DEVIATION LATE PRECORDIAL R/S TRANSITION No previous ECG available for comparison Electronically Signed On 02-14-2022 12:10:[address] [facility] 06-12-2023 Note [facility] PreSurgical History and Physical Name: Pravin Melo : 1970 (Age-53 y.o.) Date of evaluation: 06/12/2023 Surgeon: Simone Amin MD Allergies Allergen Reactions Influenza Virus Vaccine Rash Sulfa Antibiotics Rash Chief Complaint: 53 y.o. female for Procedure(s): LEFT FOOT REMOVAL DEEP IMPLANT, REVISION CALCANEOCUBOID JOINT AND TALONAVICULAR JOINT ARTHRODESIS ARTHRODESIS FOOT MIDTARSAL OR METATARSAL WITH OSTEOTOMY . 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 1988 CHOLECYSTECTOMY COLONOSCOPY ENDOMETRIAL ABLATION FOOT SURGERY Left 03/07/2022 DR AMIN JOINT REPLACEMENT Bilateral 2021 knee- tanna judit KNEE ARTHROSCOPY times 2- right knee melisa, left knee hayder SEPTOPLASTY [facility] THYROID SURGERY 2007- hayder TUBAL LIGATION WISDOM TOOTH EXTRACTION No family history on file. Medications: Prior to Admission medications Medication Sig Start Date End Date Taking? Authorizing Provider acetaminophen (Tylenol) 500 MG tablet Take by mouth. Yes Historical Provider, DULoxetine (Cymbalta) [address] capsule TAKE 1 CAPSULE BY MOUTH EVERYDAY AT BEDTIME 01/22/23 Yes Historical Provider, hydroxychloroquine (Plaquenil) 200 MG tablet Take 1 tablet by mouth 2 times daily. 02/02/23 Yes Historical Provider, levothyroxine (Synthroid, Levoxyl) 150 MCG tablet Take 1 tablet by mouth daily. 12/04/21 Yes Historical Provider, lisinopril 10 MG tablet Take 10 mg by mouth daily. 02/02/23 Yes Historical Provider, Rybelsuquinton 7 MG tablet TAKE 1 TABLET BY MOUTH EVERY DAY AFTER FINISHING THE 3MG 04/22/23 Yes Historical Provider, traMADol (Ultram) 50 MG tablet Take 50 mg by mouth 3 times daily as needed. 03/13/23 Yes Historical Provider, ergocalciferol (Vitamin D2) 1.25 MG (49867 UT) capsule Take 1.25 mg by mouth 1 (one) time per week. Historical Provider, Farxiga 10 MG Take 10 mg by mouth daily. 03/23/23 Historical Provider, meloxicam (Mobic) 15 MG tablet TAKE 1 TABLET(S) ORALLY DAILY NEEDED 01/22/23 Historical Provider, Xeljanz XR 11 MG tablet sustained-release 24 hour 04/01/23 Historical Provider, MD Reyez 100 MG tablet Take 100 mg by mouth daily. 03/23/23 06/11/23 Historical Provider, Social history and Laboratory Data: Lab Results Component Value Date HGB 15.7 (H) 04/16/2023 HCT 47.8 (H) 04/16/2023 PLT 294 04/16/2023 WBC 8.3 04/16/2023 Social History Tobacco Use Smoking Status Never Smokeless Tobacco Never Social History Substance and Sexual Activity Alcohol Use Never Social History Substance and Sexual Activity Drug Use Never Physical Examination: Constitutional: No apparent distress, well nourished, and in stable condition. Cardiac: Regular rate and rhythm Abdomen: Soft and nonacute Pulmonary: Clear bilaterally and no wheezing Neuro: Moves extremities X4 with no tremors HEENT: No gross cranial nerve defects and anicteric sclera Skin: Skin warm and dry with no visible rashes Vascular: Adequate perfusion of extremities with no cyanosis Psych: Alert and oriented x3 with appropriate affect Lymphatics: No swelling of arms/hands with no pedal edema Neck: FROM with no JVD Additional Notes:None After review of the medical history and physical assessment, medications, allergies, patient's current medical condition, and labs, this patient is at an optimal medical condition for the procedure and anesthetic at this outpatient surgical facility. Electronically signed by: Iain Olvera Jr, MD, Date: 06/12/2023 at 10:35 AM [facility] 06-12-2023 Note Formatting of this n ote might be different from the original. Pre-operative Diagnosis: left Talonavicular joint arthrodesis non-union Post-operative Diagnosis: Same Procedure: #1 Left Talonavicular joint fusion, #2 removal deep implant left foot Components used: Arthrex 5.0 mm and 7.0 mm headless compression screws Anesthesia: General + popliteal block Medications: Ancef 2 g IV, TXA 1 g IV Surgeon: Brennan Assistants: Melani Bueno Estimated Blood Loss: 100 mL Complications: None Specimens: Culture taken at the TNJ nonunion site Operative findings: The Left talonavicular fusion was found to be nonunited. The previously placed screws were broken and the distal ends of the two more medial screws were removed. The joint was fused with the talar head being completely covered by the navicular and the hindfoot in 5 degrees of valgus. An additional 7 mm headless compression screw was placed across the calcaneocuboid joint percutaneously to add addition stability to the transverse tarsal joint. Solid internal fixation in compression was achieved through the fusion site. 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 She failed non-surgical treatments for the nonunions and I therefore recommended the above procedure. Despite the risks of the surgery Pravin consented to proceed. Operative report: I met with Pravin in the preoperative area prior to the procedure and discussed the surgical plan once again and answered all of her questions related to the procedure and the expected post-operative course. The risks of surgery were discussed including but not limited to the risks of medications given for surgery, the risk of blood loss during and after surgery that can lead to the need for blood products in certain situations, infection, damage to normal structures that can lead to equipment operator intermodal yard problems of pain or dysfunction, wound healing complications, the possibility of nonunion, malunion and late or chronic pain were also discussed. In addition potentially life threatening complications at the time of surgery and after surgery were discussed including but not limited to deep vein thrombosis, pulmonary embolism, myocardial infarction, stroke and . I initialed her Left lower extremity and signed her consent form. she was then taken for a popliteal block by the anesthesia staff. Following the block she was brought to the operating room and placed in the supine position on the Operating Room table. Care was taken to identify and pad all bony prominences. A general anesthetic was then given by the anesthesia staff and an endotracheal tube was placed by the anesthesia staff. At all times during the operative procedure the patient's head neck and airway were protected by the anesthesia staff. A tourniquet was applied to the right proximal thigh over cast padding. Total tourniquet time was less than 2 hours. The Left lower extremity was then prepped and draped in the usual orthopedic sterile fashion. A surgical timeout was then performed with the patient's identification, the procedure to be performed being reviewed, verification that the patient had received preoperative antibiotics, and verification of the correct surgical side. This timeout was performed by myself, the circulating room nurse and the anesthesia staff. The patient's ASA was verified by the nurse filer and sander and the anesthesia staff. Fire risk was assessed. An Esmarch bandage was then used to exsanguinate the limb. The tourniquet was then inflated. A longitudinal incision was placed midway between the anterior tibial tendon and the posterior tibial tendon overlying the talonavicular joint medially over the original medial incision site. The skin and subcutaneous tissues were divided any crossing vessels from the saphenous system were cauterized. The wound was deepened down to level of the talonavicular joint. The nonunited joint space was identified. The two medial screws were found and removed. A lamina mobile application tester was then placed within the TN joint and distraction was applied. The joint opened without difficulty. A culture was then obtained from the nonunion site. No signs of infection were present. Both opposing bone surfaces were prepped for fusion, removing all fibrous tissue, fully exposing bone on both side and then scaling both opposing bone surfaces with a small Chick[place] osteotome. The joint was then thoroughly irrigated with saline and then Osteocell allograft was placed in the fusion site. The joint was then manually compressed and guidepins for the 5 mm headless compression screws. The position of the guidepins was verified on images of the ankle and foot. Each pin was then measured and drilled. The appropriate length screws were placed and compression of the fusion site was achieved. Images were obtained in multiple planes of the foot and ankle to ensure proper position of the screws. A guide pin was then placed through the posterior aspect of the posterior tuberosity and was advanced through the calcaneus, across the calcaneocuboid joint and into the cuboid. Images were obtained in multiple planes of the foot to ensure proper position of the pin. Once verified, an incision was made at the pin site and the pin was measured. Drilling over the pin was performed and then the appropriate length 7 mm headless compression screw was placed. Images were obtained in multiple planes to ensure proper position of the screw. The tourniquet was then released and any active bleeding was controlled using Bovie cautery. The wound was thoroughly irrigated with copious amounts of sterile saline. The subcutaneous tissues were then closed utilizing 2-0 Vicryl. The skin was then closed utilizing monocryl. Dry sterile dressings were then applied and a well-padded posterior splint with the ankle in neutral dorsiflexion was placed. Pravin was then awakened from her anesthetic, transferred to her hospital bed and taken to the recovery room in stable medical condition. Post-operative plan: Follow-up: Pravin will follow-up in 2 weeks for her first post-operative check. Suture removal: her incision(s) was/were closed with buried suture and she will not need sutures removed Shoe instructions: At the first post-operative visit Pravin will be placed in a short Aircast boot and will be allowed to remove the boot for sleep, for bathing and for ROM of the foot and ankle. Weight bearing: Pravin will be instructed to be nonweight bearing on the left lower extremity in the aircast boot following the 2 week visit and this will be continued until the 6 week office visit. Follow-up plan with Dr Amin after 2 week visit: Pravin should be scheduled to see Dr Amin at 6 weeks post-op for re-evaluation X-rays at 6 week follow-up: Pravin will need 3 nonweight bearing views of the left foot at the 6 week post-op visit [facility] Phone: 06-12-2023 Hospital Discharg e instructions DOMINICK Potter - 06/12/2023 11:21 AM EDT Images from the original note were not included. SPLINT INSTRUCTIONS Keep your splint clean and dry. Do not put anything down in the splint to scratch. If your splint gets wet or starts to feel uncomfortable call Dr Amin immediately ([phone]). If you see any blood on the outside bandage reinforce it on the surface with gauze and an kelly bandage and call Dr Amin [phone]. Do not walk or stand on your splint. You can rest the splint on the floor but do not put weight on it. You should get up and move around once or twice an hour based on your comfort level. You are not to be at bed rest meaning you need to get up and move around in order to prevent blood clots. It is OK to wiggle your toes and you can contract your calf muscle inside the splint as well. When you put your foot down it is normal for the toes to turn a bluish or purple color. Once you elevate the foot for a few minutes a normal pink color should return underneath the toenails. If the color does not change within 10 minutes after elevating call Dr. Amin. If you were given a boot by our office or by an emergency department/urgent care prior to surgery, please bring it to your first post-operative appointment with you as we will take off the splint at this appointment and will most likely transition you into the boot. ELEVATION Keep your foot/ankle elevated for comfort. Elevating your foot/ankle is the best way to control your swelling and pain. Elevation means keeping the toes at the level of your nose. If your leg is not elevated to that height then it is not truly elevated. This is Elevated This is not Elevated MEDICATIONS You have been given a prescription for a narcotic medication that is intended for postoperative pain control. This medication should be used judiciously to try and minimize your discomfort after surgery. The medication will not relieve all of your pain and you should not take large amounts of the medication in an attempt to be pain free. Please understand that narcotic medications can be addictive and they are intended to decrease but not eliminate your pain and should therefore be used in moderation. If you have questions regarding taking the narcotic medication and other medications that you are currently on please call the office. You cannot drive or operate machinery while taking the narcotic medication. You should not drink alcohol or use recreational drugs while taking the narcotic medication.[facility] restricts the amount of pain pills that can be legally prescribed and no more than one prescription in a week can be given. If you require a refill of the pain medication it requires that someone come to the office in person as it cannot be called in to the pharmacy or E-prescribed. Please understand that there is a limit to the total amount of pain medication that can be prescribed so make every effort to take it only when needed. Unless otherwise instructed by Dr Amin you can take an over the counter anti-inflammatory to help with your pain as well. This includes but is not limited to Ibuprofen, Advil, Motrin, Alleve, etc. Do not take your equipment operator intermodal yard Tramadol with the percocet A prescription for baby aspirin was sent to your pharmacy and Dr. Amin wants you to take one tablet twice a day for 30 days after surgery. If you have any issues with the medication call Dr. Amin. This is intended to try to prevent blood clots. WEIGHTBEARING INSTRUCTIONS Dr Aimn wants you to be nonweight bearing on the left lower extremity. You will continue this weight bearing restriction for the next 6 weeks If you have any problems maintaining this weight bearing status please call the office so that appropriate instructions can be given. FREQUENTLY ASKED QUESTIONS FREQUENTLY ASKED QUESTIONS If I am supposed to be non-weight bearing on the operative foot/ankle can I still rest the foot on the ground when I am sitting? Yes, it is OK to rest your operative foot on the ground when you are sitting. Is it normal to feel a chavez of fluid or pressure in my foot/ankle when I put it down? Yes, after most foot, ankle or leg surgeries it is very common to feel immediate swelling or pressure in your foot, ankle and leg. Is it OK to put ice on my foot/ankle to help with the swelling and pain? After foot/ankle surgery elevating the foot/ankle is much better at relieving pain and swelling than ice. In many cases you bandage prevents the cold from getting to your skin. At your 2 week visit when your bandage is removed, icing the foot/ankle works much better and you can start it then. If I received a nerve block before surgery, how long will it last? A single shot nerve block can last anywhere from 8 hours to 36 hours on average, some patients' single shot blocks stop sooner and some can go a little longer. A catheter block (pain ball) lasts longer when you have it dialed down and it runs out faster if you have it dialed up. For most patients it lasts for a day and a half to 3 days. Can I shower or bathe after surgery? Yes, you can shower or bathe after surgery but you have to put a plastic bag over your splint/dressing to keep the splint/bandage absolutely dry. The splint/bandage is like a sponge and any water that gets in can damage your skin or cause your incision/incisions to open up and get infected. If your splint/bandage gets water in it, call Dr. Amin's office ([phone]) immediately and you will be instructed which office can see your the quickest to change your splint/bandage. DOMINICK Potter - 06/12/2023 11:21 AM EDT Weight-bearing and post-operative activity Dr Amin wants you to be nonweight bearing on the left lower extremity. You will continue this weight bearing restriction for the next 6 weeks If you have any problems maintaining this weight bearing status please call the office so that appropriate instructions can be given. Dr. Amin wants you to get up once per hour during the day to move around for a few minutes while following the above weight bearing orders. He does not want you to be in bed or on a couch all day not getting up. Getting up and moving once per hour helps to promote blood flow and is one way of trying to prevent a blood clot. Remember that when you get up it is normal for your foot/toes to change color and for you to feel fluid, pressure or throbbing (your heart beat) in your foot or toes. When you return to sitting down or laying down elevate your foot as it will lessen your swelling and be more comfortable. If you are having a hard time moving around during the day, let Dr Amin know. DOMINICK Potter - 06/12/2023 11:22 AM EDT Good nutrition is important when healing from an illness, injury, or surgery. Follow any nutrition recommendations given to you during your hospital stay. If you were given an oral nutrition supplement while in the hospital, continue to take this supplement at home. You can take it with meals, in-between meals, and/or before bedtime. These supplements can be purchased at most local grocery stores, pharmacies, and chain super-stores. If you have any questions about your diet or nutrition, call the hospital and ask for the dietitian. The following attachments cannot be sent through Care Everywhere.Moderate Sedation in Adults Discharge Instructions (Slovenian)documented in this encounter [facility] 06-12-2023 Attending History and physical note H&P reviewed. The patient was examined and there are no changes to the H&P. Source Note - Simone Amin MD - 05/28/2023 11:45 AM EDT Images from the original note were not included. [facility] [address] [place] [id number] Dept: [phone] Dept Pravin Melo 1970 [id number] 05/28/2023 HISTORY OF PRESENT ILLNESS: Pravin is a 53 y.o. female here today for evaluation of her left ankle and foot. She has had increased pain since 05/19/23. She is on week 5 of her vitamin D 50,000 units. She states that the outside portion of the foot does not seem to bother her very much. She states that on occasion if she steps wrong she has some pain on the outer portion of the foot and ankle however the inner portion of the foot and ankle are the most painful. She was feeling a little bit better about a week ago and then felt a pop in the inner portion of the foot and had an increase in pain. She is worried that she may have broken of the screw. Review of Systems PAST MEDICAL HISTORY: Past Medical History: Diagnosis Date Anemia Arthritis Diabetes mellitus (HCC) H/O cardiovascular stress test Hypertension Sleep apnea cpap is worn Thyroid disease Allergies Allergen Reactions Influenza Virus Vaccine Rash Sulfa Antibiotics Rash PHYSICAL EXAM: This is an age appropriate appearing female who is alert and oriented x 3. The patient appears well nourished. The patient is able to verbalize normally and seems to have a good understanding of her situation. Normocephalic and atraumatic Respiratory: No shortness of breath The left lower extremity is examined. Skin: warm and dry Lymphatic: Minimal swelling of the ankle, hindfoot, and midfoot Vascular: Capillary refill in the foot/toes is brisk Neurologic: Sensation is intact except over the surgical incision site(s) Musculoskeletal: The calf is nontender to palpation. The patient is able to actively move the ankle/foot/toes The hindfoot/midfoot incisions are healed and benign Tenderness: Nontender to palpation overlying the calcaneocuboid and subtalar joints. The talonavicular joint is tender to palpation. 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 The subtalar joint appears to be partially fused with an intact crossing screw. REVIEW OF RELATED PREVIOUS DOCUMENTATION: No documents related to the current problem(s) were reviewed or no documents were available for review. LABORATORY RESULT INTERPRETATION: No labs were reviewed/No labs available for review DIAGNOSIS: Diagnosis Plan 1. 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 Pravin and I discussed proceeding with revision talonavicular joint fusion and not revising the calcaneocuboid or subtalar joints. She is not having lateral sided foot pain and she had some issues healing the lateral sided incision after the initial surgery and I think it would be best to avoid that incision site if possible. She understands that if she heals the talonavicular joint and then develops lateral sided pain we may at some point have to return to surgery to revise either the calcaneocuboid and or subtalar joints. explained to Pravin that this type of procedure is typically an outpatient procedure meaning she will be able to go home the day of surgery. Pravin understands she will need a ride to and from the hospital and she will need someone to stay with her for a night after the surgery. If for some reason Pravin needs to be admitted to the hospital following the procedure, we can admit if necessary. I explained Pravin would need to be nonweightbearing and this would continue for up to 6 weeks following surgery. During this time Pravin may need to use crutches, a walker, a wheelchair, a knee scooter or a combination of these to get around. I talked to Pravin about the expected postoperative pain level following this type of procedure. I explained that each patient's perception of pain is different and she could experience more pain or less pain than the average patient and that is something that I cannot fully predict. I explained that she would receive a prescription for pain medication at the time of discharge from the hospital and subsequent requests will be considered based on her complaints, exam findings and length of time from surgery. The risks of surgery were discussed including but not limited to the risks of medications given for surgery, the risk of blood loss during and after surgery that can lead to the need for blood products in certain situations, infection, damage to normal structures that can lead to penitentiary problems of pain or dysfunction, wound healing complications, the possibility of nonunion or malunion for any bone procedures if they are required and late or chronic pain. I explained to Pravin that surgery can potentially make their condition worse or can lead to other unexpected problems that can have penitentiary effects on their function or comfort. In addition potentially life threatening complications at the time of surgery and after surgery were discussed including but not limited to deep vein thrombosis, pulmonary embolism, myocardial infarction, stroke and . Pravin understands that no guarantees with regard to surgical outcome can be given and none were implied. Pravin was given the opportunity to ask questions and consider her options. Pravin would like to proceed with the above mentioned procedure. Follow up for Surgery scheduled. Electronically signed by Simone Amin MD [facility] Department of Orthopedic surgery 05/28/2023 1:10 PM Voice recognition was used for portions of this note and although it was reviewed prior to signing some incorrect words or phrases could be present. [facility] 06-12-2023 History and physical note H&P reviewed. The patient was examined and there are no changes to the H&P. Source Note - Simone Amin MD - 05/28/2023 11:45 AM EDT Images from the original note were not included. [facility] [address] [place] [id number] Dept: [phone] Dept Pravin Melo 1970 [id number] 05/28/2023 HISTORY OF PRESENT ILLNESS: Pravin is a 53 y.o. female here today for evaluation of her left ankle and foot. She has had increased pain since 05/19/23. She is on week 5 of her vitamin D 50,000 units. She states that the outside portion of the foot does not seem to bother her very much. She states that on occasion if she steps wrong she has some pain on the outer portion of the foot and ankle however the inner portion of the foot and ankle are the most painful. She was feeling a little bit better about a week ago and then felt a pop in the inner portion of the foot and had an increase in pain. She is worried that she may have broken of the screw. Review of Systems PAST MEDICAL HISTORY: Past Medical History: Diagnosis Date Anemia Arthritis Diabetes mellitus (HCC) H/O cardiovascular stress test Hypertension Sleep apnea cpap is worn Thyroid disease Allergies Allergen Reactions Influenza Virus Vaccine Rash Sulfa Antibiotics Rash PHYSICAL EXAM: This is an age appropriate appearing female who is alert and oriented x 3. The patient appears well nourished. The patient is able to verbalize normally and seems to have a good understanding of her situation. Normocephalic and atraumatic Respiratory: No shortness of breath The left lower extremity is examined. Skin: warm and dry Lymphatic: Minimal swelling of the ankle, hindfoot, and midfoot Vascular: Capillary refill in the foot/toes is brisk Neurologic: Sensation is intact except over the surgical incision site(s) Musculoskeletal: The calf is nontender to palpation. The patient is able to actively move the ankle/foot/toes The hindfoot/midfoot incisions are healed and benign Tenderness: Nontender to palpation overlying the calcaneocuboid and subtalar joints. The talonavicular joint is tender to palpation. 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 The subtalar joint appears to be partially fused with an intact crossing screw. REVIEW OF RELATED PREVIOUS DOCUMENTATION: No documents related to the current problem(s) were reviewed or no documents were available for review. LABORATORY RESULT INTERPRETATION: No labs were reviewed/No labs available for review DIAGNOSIS: Diagnosis Plan 1. 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 Pravin and I discussed proceeding with revision talonavicular joint fusion and not revising the calcaneocuboid or subtalar joints. She is not having lateral sided foot pain and she had some issues healing the lateral sided incision after the initial surgery and I think it would be best to avoid that incision site if possible. She understands that if she heals the talonavicular joint and then develops lateral sided pain we may at some point have to return to surgery to revise either the calcaneocuboid and or subtalar joints. explained to Pravin that this type of procedure is typically an outpatient procedure meaning she will be able to go home the day of surgery. Pravin understands she will need a ride to and from the hospital and she will need someone to stay with her for a night after the surgery. If for some reason Pravin needs to be admitted to the hospital following the procedure, we can admit if necessary. I explained Pravin would need to be nonweightbearing and this would continue for up to 6 weeks following surgery. During this time Pravin may need to use crutches, a walker, a wheelchair, a knee scooter or a combination of these to get around. I talked to Pravin about the expected postoperative pain level following this type of procedure. I explained that each patient's perception of pain is different and she could experience more pain or less pain than the average patient and that is something that I cannot fully predict. I explained that she would receive a prescription for pain medication at the time of discharge from the hospital and subsequent requests will be considered based on her complaints, exam findings and length of time from surgery. The risks of surgery were discussed including but not limited to the risks of medications given for surgery, the risk of blood loss during and after surgery that can lead to the need for blood products in certain situations, infection, damage to normal structures that can lead to penitentiary problems of pain or dysfunction, wound healing complications, the possibility of nonunion or malunion for any bone procedures if they are required and late or chronic pain. I explained to Pravin that surgery can potentially make their condition worse or can lead to other unexpected problems that can have equipment operator intermodal yard effects on their function or comfort. In addition potentially life threatening complications at the time of surgery and after surgery were discussed including but not limited to deep vein thrombosis, pulmonary embolism, myocardial infarction, stroke and . Pravin understands that no guarantees with regard to surgical outcome can be given and none were implied. Pravin was given the opportunity to ask questions and consider her options. Pravin would like to proceed with the above mentioned procedure. Follow up for Surgery scheduled. Electronically signed by Simone Amin MD [facility] Department of Orthopedic surgery 05/28/2023 1:10 PM Voice recognition was used for portions of this note and although it was reviewed prior to signing some incorrect words or phrases could be present. [facility] PreSurgical History and Physical Name: Pravin Melo : 1970 (Age-53 y.o.) Date of evaluation: 06/12/2023 Surgeon: Simone Amin MD Allergies Allergen Reactions Influenza Virus Vaccine Rash Sulfa Antibiotics Rash Chief Complaint: 53 y.o. female for Procedure(s): LEFT FOOT REMOVAL DEEP IMPLANT, REVISION CALCANEOCUBOID JOINT AND TALONAVICULAR JOINT ARTHRODESIS ARTHRODESIS FOOT MIDTARSAL OR METATARSAL WITH OSTEOTOMY . 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 1988 CHOLECYSTECTOMY COLONOSCOPY ENDOMETRIAL ABLATION FOOT SURGERY Left 03/07/2022 DR AMIN JOINT REPLACEMENT Bilateral 2021 knee- [facility] [place] KNEE ARTHROSCOPY times 2- right knee melisa, left knee [facility] SEPTOPLASTY missael THYROID SURGERY 2006- [facility] TUBAL LIGATION WISDOM TOOTH EXTRACTION No family history on file. Medications: Prior to Admission medications Medication Sig Start Date End Date Taking? Authorizing Provider acetaminophen (Tylenol) 500 MG tablet Take by mouth. Yes Historical Provider, DULoxetine (Cymbalta) [address] capsule TAKE 1 CAPSULE BY MOUTH EVERYDAY AT BEDTIME 01/22/23 Yes Historical Provider, hydroxychloroquine (Plaquenil) 200 MG tablet Take 1 tablet by mouth 2 times daily. 02/02/23 Yes Historical Provider, levothyroxine (Synthroid, Levoxyl) 150 MCG tablet Take 1 tablet by mouth daily. 12/04/21 Yes Historical Provider, lisinopril 10 MG tablet Take 10 mg by mouth daily. 02/02/23 Yes Historical Provider, MD Esp[place] 7 MG tablet TAKE 1 TABLET BY MOUTH EVERY DAY AFTER FINISHING THE 3MG 04/22/23 Yes Historical Provider, traMADol (Ultram) 50 MG tablet Take 50 mg by mouth 3 times daily as needed. 03/13/23 Yes Historical Provider, ergocalciferol (Vitamin D2) 1.25 MG (06834 UT) capsule Take 1.25 mg by mouth 1 (one) time per week. Historical Provider, MD Addisonxiadelia 10 MG Take 10 mg by mouth daily. 03/23/23 Historical Provider, meloxicam (Mobic) 15 MG tablet TAKE 1 TABLET(S) ORALLY DAILY NEEDED 01/22/23 Historical Provider, Xeljanz XR 11 MG tablet sustained-release 24 hour 04/01/23 Historical Provider, Januvdorothy 100 MG tablet Take 100 mg by mouth daily. 03/23/23 06/11/23 Historical Provider, Social history and Laboratory Data: Lab Results Component Value Date HGB 15.7 (H) 04/16/2023 HCT 47.8 (H) 04/16/2023 PLT 294 04/16/2023 WBC 8.3 04/16/2023 Social History Tobacco Use Smoking Status Never Smokeless Tobacco Never Social History Substance and Sexual Activity Alcohol Use Never Social History Substance and Sexual Activity Drug Use Never Physical Examination: Constitutional: No apparent distress, well nourished, and in stable condition. Cardiac: Regular rate and rhythm Abdomen: Soft and nonacute Pulmonary: Clear bilaterally and no wheezing Neuro: Moves extremities X4 with no tremors HEENT: No gross cranial nerve defects and anicteric sclera Skin: Skin warm and dry with no visible rashes Vascular: Adequate perfusion of extremities with no cyanosis Psych: Alert and oriented x3 with appropriate affect Lymphatics: No swelling of arms/hands with no pedal edema Neck: FROM with no JVD Additional Notes:None After review of the medical history and physical assessment, medications, allergies, patient's current medical condition, and labs, this patient is at an optimal medical condition for the procedure and anesthetic at this outpatient surgical facility. Electronically signed by: Iain Olvera Jr, MD, MD Date: 06/12/2023 at 10:35 AM documented in this encounter [facility] 06-12-2023 History and physical note [facility] PreSurgical History and Physical Name: Pravin Melo : 1970 (Age-53 y.o.) Date of evaluation: 06/12/2023 Surgeon: Simone Amin MD Allergies Allergen Reactions Influenza Virus Vaccine Rash Sulfa Antibiotics Rash Chief Complaint: 53 y.o. female for Procedure(s): LEFT FOOT REMOVAL DEEP IMPLANT, REVISION CALCANEOCUBOID JOINT AND TALONAVICULAR JOINT ARTHRODESIS ARTHRODESIS FOOT MIDTARSAL OR METATARSAL WITH OSTEOTOMY . 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 1988 CHOLECYSTECTOMY COLONOSCOPY ENDOMETRIAL ABLATION FOOT SURGERY Left 03/07/2022 DR AMIN JOINT REPLACEMENT Bilateral 2021 knee- [facility] [place] KNEE ARTHROSCOPY times 2- right knee melisa, left knee hayder SEPTOPLASTY [facility] THYROID SURGERY 2006- hayder TUBAL LIGATION WISDOM TOOTH EXTRACTION No family history on file. Medications: Prior to Admission medications Medication Sig Start Date End Date Taking? Authorizing Provider acetaminophen (Tylenol) 500 MG tablet Take by mouth. Yes Historical Provider, DULoxetine (Cymbalta) [address] capsule TAKE 1 CAPSULE BY MOUTH EVERYDAY AT BEDTIME 01/22/23 Yes Historical Provider, hydroxychloroquine (Plaquenil) 200 MG tablet Take 1 tablet by mouth 2 times daily. 02/02/23 Yes Historical Provider, levothyroxine (Synthroid, Levoxyl) 150 MCG tablet Take 1 tablet by mouth daily. 12/04/21 Yes Historical Provider, lisinopril 10 MG tablet Take 10 mg by mouth daily. 02/02/23 Yes Historical Provider, MD [place] 7 MG tablet TAKE 1 TABLET BY MOUTH EVERY DAY AFTER FINISHING THE 3MG 04/22/23 Yes Historical Provider, traMADol (Ultram) 50 MG tablet Take 50 mg by mouth 3 times daily as needed. 03/13/23 Yes Historical Provider, ergocalciferol (Vitamin D2) 1.25 MG (99114 UT) capsule Take 1.25 mg by mouth 1 (one) time per week. Historical Provider, Farxiga 10 MG Take 10 mg by mouth daily. 03/23/23 Historical Provider, meloxicam (Mobic) 15 MG tablet TAKE 1 TABLET(S) ORALLY DAILY NEEDED 01/22/23 Historical Provider, Xeljanz XR 11 MG tablet sustained-release 24 hour 04/01/23 Historical Provider, Januvdorothy 100 MG tablet Take 100 mg by mouth daily. 03/23/23 06/11/23 Historical Provider, Social history and Laboratory Data: Lab Results Component Value Date HGB 15.7 (H) 04/16/2023 HCT 47.8 (H) 04/16/2023 PLT 294 04/16/2023 WBC 8.3 04/16/2023 Social History Tobacco Use Smoking Status Never Smokeless Tobacco Never Social History Substance and Sexual Activity Alcohol Use Never Social History Substance and Sexual Activity Drug Use Never Physical Examination: Constitutional: No apparent distress, well nourished, and in stable condition. Cardiac: Regular rate and rhythm Abdomen: Soft and nonacute Pulmonary: Clear bilaterally and no wheezing Neuro: Moves extremities X4 with no tremors HEENT: No gross cranial nerve defects and anicteric sclera Skin: Skin warm and dry with no visible rashes Vascular: Adequate perfusion of extremities with no cyanosis Psych: Alert and oriented x3 with appropriate affect Lymphatics: No swelling of arms/hands with no pedal edema Neck: FROM with no JVD Additional Notes:None After review of the medical history and physical assessment, medications, allergies, patient's current medical condition, and labs, this patient is at an optimal medical condition for the procedure and anesthetic at this outpatient surgical facility. Electronically signed by: Iain Olvera Jr, MD, MD Date: 06/12/2023 at 10:35 AM [employer] Work Phone: 06-11-2023 Note Patient: Pravin Neves er Procedure Information Date/Time: 06/11/23 0900 Scheduled providers: Emily Cm RN Procedure: PAT OPTIMIZATION CALL Location: [facility] Pre-Admit Testing Relevant Problems Other (+) Arthritis of foot Past Medical History: Past Medical History: No date: Anemia No date: Arthritis No date: Diabetes mellitus (HCC) No date: H/O cardiovascular stress test No date: Hypertension No date: Sleep apnea Comment: cpap is worn No date: Thyroid disease Past Surgical History: Past Surgical History: No date: SECTION (HISTORICAL) Comment: times 2 1987. 1988 No date: CHOLECYSTECTOMY No date: COLONOSCOPY No date: ENDOMETRIAL ABLATION 03/07/2022: FOOT SURGERY; Left Comment: DR AMIN 2019: JOINT REPLACEMENT; Right Comment: knee- tanna spain No date: KNEE ARTHROSCOPY Comment: times 2- right knee melisa, left knee hayder No date: SEPTOPLASTY Comment: missael No date: THYROID SURGERY Comment: hayder No date: TUBAL LIGATION No date: WISDOM TOOTH EXTRACTION Social History: TOBACCO: reports that she has never smoked. She has never used smokeless tobacco. ETOH: reports no history of alcohol use. Social History Substance and Sexual Activity Drug Use Never Family History: No family history on file. Screening: unknown Clinical information reviewed: Physical Exam Airway Mallampati: unable to assess Cardiovascular Dental Comments: Did not go through PAT Pulmonary Abdominal Anesthesia Plan Any family history or previous problems with anesthesia ASA 3 general and regional The patient is not a current smoker. Blood Glucose Insulin Sliding Scale: low ERAS Type PNB ERAS Allergy to celebrex TIFFANIE Screening Labs: Lab Results Component Value Date WBC 8.3 04/16/2023 HGB 15.7 (H) 04/16/2023 HCT 47.8 (H) 04/16/2023 MCV 82.1 04/16/2023 PLT 294 04/16/2023 No results found for: NA , K , CL , CO2 , BUN , CREATININE , GLUCOSE , CALCIUM , PROT , BILIRUBINFL , ALKPHOS , AST , ALT , EGFR , GLOB No echocardiogram results found for the past 14 days No results found for this or any previous visit. [facility] 06-09-2023 Note Procedure: left foot removal deep implant, revision calcaneocuoid joint and Talonavicular joint arthrodesis (50718) CPT codes: see above Diagnosis: No primary diagnosis found. Location for Surgery: Any location (patient choice) Schedule for: 2.5 hours Admission Type: Outpatient Medical Clearance: No Antibiotic: Ancef 2g IV Anesthesia: Popliteal block (single shot) + General Position and Table type: Supine on Regular OR table Radiology: Big C-arm Implants: Arthex 4.0 mm and 7.0 mm headless compression screws Equipment: Osteotomes, Synthes Foot Distractor, Osteocell 5 g, and Lamina Spreaders , synthes broken screw removal tray and universal screw removal tray [facility] 05-28-2023 Note [facility] [address] [place] [address] [place] [id number] Dept: [phone] Dept Pravin Melo 1970 [id number] 05/28/2023 HISTORY OF PRESENT ILLNESS: Pravin is a 53 y.o. female here today for evaluation of her left ankle and foot. She has had increased pain since 05/19/23. She is on week 5 of her vitamin D 50,000 units. She states that the outside portion of the foot does not seem to bother her very much. She states that on occasion if she steps wrong she has some pain on the outer portion of the foot and ankle however the inner portion of the foot and ankle are the most painful. She was feeling a little bit better about a week ago and then felt a pop in the inner portion of the foot and had an increase in pain. She is worried that she may have broken of the screw. Review of Systems PAST MEDICAL HISTORY: Past Medical History: Diagnosis Date Anemia Arthritis Diabetes mellitus (HCC) H/O cardiovascular stress test Hypertension Sleep apnea cpap is worn Thyroid disease Allergies Allergen Reactions Influenza Virus Vaccine Rash Sulfa Antibiotics Rash PHYSICAL EXAM: This is an age appropriate appearing female who is alert and oriented x 3. The patient appears well nourished. The patient is able to verbalize normally and seems to have a good understanding of her situation. Normocephalic and atraumatic Respiratory: No shortness of breath The left lower extremity is examined. Skin: warm and dry Lymphatic: Minimal swelling of the ankle, hindfoot, and midfoot Vascular: Capillary refill in the foot/toes is brisk Neurologic: Sensation is intact except over the surgical incision site(s) Musculoskeletal: The calf is nontender to palpation. The patient is able to actively move the ankle/foot/toes The hindfoot/midfoot incisions are healed and benign Tenderness: Nontender to palpation overlying the calcaneocuboid and subtalar joints. The talonavicular joint is tender to palpation. 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 The subtalar joint appears to be partially fused with an intact crossing screw. REVIEW OF RELATED PREVIOUS DOCUMENTATION: No documents related to the current problem(s) were reviewed or no documents were available for review. LABORATORY RESULT INTERPRETATION: No labs were reviewed/No labs available for review DIAGNOSIS: Diagnosis Plan 1. 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 Pravin and I discussed proceeding with revision talonavicular joint fusion and not revising the calcaneocuboid or subtalar joints. She is not having lateral sided foot pain and she had some issues healing the lateral sided incision after the initial surgery and I think it would be best to avoid that incision site if possible. She understands that if she heals the talonavicular joint and then develops lateral sided pain we may at some point have to return to surgery to revise either the calcaneocuboid and or subtalar joints. explained to Pravin that this type of procedure is typically an outpatient procedure meaning she will be able to go home the day of surgery. Pravin understands she will need a ride to and from the hospital and she will need someone to stay with her for a night after the surgery. If for some reason Pravin needs to be admitted to the hospital following the procedure, we can admit if necessary. I explained Pravin would need to be nonweightbearing and this would continue for up to 6 weeks following surgery. During this time Pravin may need to use crutches, a walker, a wheelchair, a knee scooter or a combination of these to get around. I talked to Pravin about the expected postoperative pain level following this type of procedure. I explained that each patient's perception of pain is different and she could experience more pain or less pain than the average patient and that is something that I cannot fully predict. I explained that she would receive a prescription for pain medication at the time of discharge from the hospital and subsequent requests will be considered based on her complaints, exam findings and length of time from surgery. The risks of surgery were discussed including but not limited to the risks of medications given for surgery, the risk of blood loss during and after surgery that can lead to the need for blood products in certain situations, infection, damage to normal structures that (more content not included)... [facility] 05-22-2023 Note We can just schedule surgery if she wants. SURGERY SCHEDULING SHEET Procedure: left foot removal deep implant, revision calcaneocuoid joint and Talonavicular joint arthrodesis (57117) CPT codes: see above Diagnosis: No primary diagnosis found. Location for Surgery: Any location (patient choice) Schedule for: 2.5 hours Admission Type: Outpatient Medical Clearance: No Antibiotic: Ancef 2g IV Anesthesia: Popliteal block (single shot) + General Position and Table type: Supine on Regular OR table Radiology: Big C-arm Implants: Arthex 4.0 mm and 7.0 mm headless compression screws Equipment: Osteotomes, Synthes Foot Distractor, Osteocell 5 g, and Lamina Spreaders , synthes broken screw removal tray and universal screw removal tray [facility] 04-16-2023 History of Presen t illness Narrative Images from the original note were not included. [facility] [address] [place] [id number] Dept: [phone] Dept Pravin Melo 1970 [id number] 04/16/2023 HISTORY OF PRESENT ILLNESS: Pravin is here for her 1 year(s) postoperative visit s/p left postoperative visit s/p left foot triple arthrodesis, #2 Left Achilles triple cut tendon lengthening, #3 left EHL tendon transfer. Her surgery was on 03/07/22.. Pravin reports that her pain is worse than at the surgery/last visit- she reports increased pain the last few weeks- no known injury or trauma to the area. She reports she had inc pain in January when she started riding her bike more pushing through toes when out of the saddle. Pravin reports that her swelling has been minimal Pravin had been instructed to be weight bearing as tolerated on the left lower extremity. Pravin has been compliant with her weight bearing restrictions Pravin has been working on her home exercise program and it is going well Pravin denies fevers and chills and has not had calf pain or shortness of breath In general Pravin feels that she has been doing well since the surgery Other issues or concerns that Pravin would like addressed at this visit: she has no other issues or concerns to discuss Review of Systems PAST MEDICAL HISTORY: Past Medical History: Diagnosis Date Anemia Arthritis Diabetes mellitus (HCC) H/O cardiovascular stress test Hypertension Sleep apnea cpap is worn Thyroid disease Allergies Allergen Reactions Influenza Virus Vaccine Rash Sulfa Antibiotics Rash PHYSICAL EXAM: This is an age appropriate appearing female who is alert and oriented x 3. The patient appears well nourished. The patient is able to verbalize normally and seems to have a good understanding of her situation. Normocephalic and atraumatic Respiratory: No shortness of breath The left lower extremity is examined. Skin: warm and dry Lymphatic: Minimal swelling of the ankle, hindfoot, and midfoot Vascular: Capillary refill in the foot/toes is brisk Neurologic: Sensation is intact except over the surgical incision site(s) Musculoskeletal: The calf is nontender to palpation. The patient is able to actively move the ankle/foot/toes The anterior ankle, medial hindfoot/midfoot, lateral hindfoot/midfoot and dorsal first ray incisions are healed and benign Tenderness: Tender palpation overlying the talonavicular and calcaneocuboid joints. The tarsal sinus was nontender to palpation. 5 out of 5 strength was noted in the anterior tibial tendon with full dorsiflexion. Gait: Is able to ambulate without walking aids. At foot flat the hindfoot is in neutral to slight varus alignment. RADIOGRAPHIC INTERPRETATION: 3 weight bearing views of the left ankle were obtained and the following is my interpretation of the findings present of the X-rays: Possible nonunion of both the talonavicular and calcaneocuboid joints. 2 of the screws crossing the talonavicular joint fusion are broken. One of the screws at the calcaneocuboid joint fusion is broken. Longitudinal arch height is well-maintained on the weightbearing lateral. The subtalar joint appears to be fused partially with 1 intact crossing screw. REVIEW OF RELATED PREVIOUS DOCUMENTATION: No documents related to the current problem(s) were reviewed or no documents were available for review. LABORATORY RESULT INTERPRETATION: No labs were reviewed/No labs available for review DIAGNOSIS: Diagnosis Plan 1. Nonunion after arthrodesis Vitamin D Deficiency Screening (Vit D 25) Calcium, ionized C-reactive protein Sedimentation rate, automated CBC auto differential Vitamin D Deficiency Screening (Vit D 25) Calcium, ionized C-reactive protein Sedimentation rate, automated CBC auto differential 2. Arthritis of foot 3. Rheumatoid arthritis of left foot, unspecified whether rheumatoid factor present ([facility]) Ambulatory referral for Orthotics MEDICAL DECISION MAKING: I had a discussion with Pravin to make sure she has a good understanding of the diagnoses/issues that I think are present today and understands the plan moving forward. In terms of the EHL tendon transfer for the anterior tibial tendon rupture she has full motion of the ankle and 5 out of 5 strength with dorsiflexion and I think that portion of the procedure was successful. She is happy with that portion of the surgery as well. She asked if she could stretch the tendon and I told her that would be fine. I explained to Pravin that she now has 3 broken screws with 2 of the screws crossing the talonavicular joint and 1 at the calcaneocuboid joint fusion site. The pain that she had with walking could have been the additional screw breaking. I explained it could also be secondary to having a nonunion at the talonavicular joint fusion site. When I asked if her pain was bad enough that she would want to have any intervention she said no and it actually feels better than preoperatively. We decided to perform a nonunion workup to see if any modifiable factors are present. She stated that she does not feel that she would want any further surgical intervention as long as things stay the same. If they were to worsen she would consider surgical intervention. We talked about her gait and the fact that it has changed some with the surgery putting more weight on the lateral aspect of the foot. We discussed getting a custom molded foot orthosis to see if that would make her feel more balanced. Pravin was given a prescription for a custom molded foot orthosis with lateral hindfoot/midfoot posting today. I explained that once she gets the orthosis she needs to increase daily wear one hour per day until she is using it daytime babysitter. I explained that there can be risks associated with the use of a foot orthosis. I explained that a foot orthosis can lead to other problems both in the foot and in the lower extremity that are at times unanticipated. If the orthosis is uncomfortable or makes her problem worse, or if she develops another problem as a result of the orthosis then she needs to have it adjusted by the appraiser art. If Pravin has any other questions pertaining to orthosis they were told to call me. Follow up if symptoms worsen or fail to improve, for call our office with any questions at [phone]. Electronically signed by Simone Amin MD [facility] Department of Orthopedic surgery 04/16/2023 12:32 PM Voice recognition was used for portions of this note and although it was reviewed prior to signing some incorrect words or phrases could be present. documented in this encounter [facility] 04-16-2023 History of Presen t illness Narrative Images from the original note were not included. [facility] [address] [place] [address] [place] [phone] Dept: [phone] Dept Pravin Melo 1970 [id number] 04/16/2023 HISTORY OF PRESENT ILLNESS: Pravin is here for her 1 year(s) postoperative visit s/p left postoperative visit s/p left foot triple arthrodesis, #2 Left Achilles triple cut tendon lengthening, #3 left EHL tendon transfer. Her surgery was on 03/07/22.. Pravin reports that her pain is worse than at the surgery/last visit- she reports increased pain the last few weeks- no known injury or trauma to the area. She reports she had inc pain in January when she started riding her bike more pushing through toes when out of the saddle. Pravin reports that her swelling has been minimal Pravin had been instructed to be weight bearing as tolerated on the left lower extremity. Pravin has been compliant with her weight bearing restrictions Pravin has been working on her home exercise program and it is going well Pravin denies fevers and chills and has not had calf pain or shortness of breath In general Pravin feels that she has been doing well since the surgery Other issues or concerns that Pravin would like addressed at this visit: she has no other issues or concerns to discuss Review of Systems PAST MEDICAL HISTORY: Past Medical History: Diagnosis Date Anemia Arthritis Diabetes mellitus (HCC) H/O cardiovascular stress test Hypertension Sleep apnea cpap is worn Thyroid disease Allergies Allergen Reactions Influenza Virus Vaccine Rash Sulfa Antibiotics Rash PHYSICAL EXAM: This is an age appropriate appearing female who is alert and oriented x 3. The patient appears well nourished. The patient is able to verbalize normally and seems to have a good understanding of her situation. Normocephalic and atraumatic Respiratory: No shortness of breath The left lower extremity is examined. Skin: warm and dry Lymphatic: Minimal swelling of the ankle, hindfoot, and midfoot Vascular: Capillary refill in the foot/toes is brisk Neurologic: Sensation is intact except over the surgical incision site(s) Musculoskeletal: The calf is nontender to palpation. The patient is able to actively move the ankle/foot/toes The anterior ankle, medial hindfoot/midfoot, lateral hindfoot/midfoot and dorsal first ray incisions are healed and benign Tenderness: Tender palpation overlying the talonavicular and calcaneocuboid joints. The tarsal sinus was nontender to palpation. 5 out of 5 strength was noted in the anterior tibial tendon with full dorsiflexion. Gait: Is able to ambulate without walking aids. At foot flat the hindfoot is in neutral to slight varus alignment. RADIOGRAPHIC INTERPRETATION: 3 weight bearing views of the left ankle were obtained and the following is my interpretation of the findings present of the X-rays: Possible nonunion of both the talonavicular and calcaneocuboid joints. 2 of the screws crossing the talonavicular joint fusion are broken. One of the screws at the calcaneocuboid joint fusion is broken. Longitudinal arch height is well-maintained on the weightbearing lateral. The subtalar joint appears to be fused partially with 1 intact crossing screw. REVIEW OF RELATED PREVIOUS DOCUMENTATION: No documents related to the current problem(s) were reviewed or no documents were available for review. LABORATORY RESULT INTERPRETATION: No labs were reviewed/No labs available for review DIAGNOSIS: Diagnosis Plan 1. Nonunion after arthrodesis Vitamin D Deficiency Screening (Vit D 25) Calcium, ionized C-reactive protein Sedimentation rate, automated CBC auto differential Vitamin D Deficiency Screening (Vit D 25) Calcium, ionized C-reactive protein Sedimentation rate, automated CBC auto differential 2. Arthritis of foot 3. Rheumatoid arthritis of left foot, unspecified whether rheumatoid factor present ([facility]) Ambulatory referral for Orthotics MEDICAL DECISION MAKING: I had a discussion with Pravin to make sure she has a good understanding of the diagnoses/issues that I think are present today and understands the plan moving forward. In terms of the EHL tendon transfer for the anterior tibial tendon rupture she has full motion of the ankle and 5 out of 5 strength with dorsiflexion and I think that portion of the procedure was successful. She is happy with that portion of the surgery as well. She asked if she could stretch the tendon and I told her that would be fine. I explained to Pravin that she now has 3 broken screws with 2 of the screws crossing the talonavicular joint and 1 at the calcaneocuboid joint fusion site. The pain that she had with walking could have been the additional screw breaking. I explained it could also be secondary to having a nonunion at the talonavicular joint fusion site. When I asked if her pain was bad enough that she would want to have any intervention she said no and it actually feels better than preoperatively. We decided to perform a nonunion workup to see if any modifiable factors are present. She stated that she does not feel that she would want any further surgical intervention as long as things stay the same. If they were to worsen she would consider surgical intervention. We talked about her gait and the fact that it has changed some with the surgery putting more weight on the lateral aspect of the foot. We discussed getting a custom molded foot orthosis to see if that would make her feel more balanced. Pravin was given a prescription for a custom molded foot orthosis with lateral hindfoot/midfoot posting today. I explained that once she gets the orthosis she needs to increase daily wear one hour per day until she is using it daytime babysitter. I explained that there can be risks associated with the use of a foot orthosis. I explained that a foot orthosis can lead to other problems both in the foot and in the lower extremity that are at times unanticipated. If the orthosis is uncomfortable or makes her problem worse, or if she develops another problem as a result of the orthosis then she needs to have it adjusted by the appraiser art. If Pravin has any other questions pertaining to orthosis they were told to call me. Follow up if symptoms worsen or fail to improve, for call our office with any questions at [phone]. Electronically signed by Simone Amin MD [facility] Department of Orthopedic surgery 04/16/2023 12:32 PM Voice recognition was used for portions of this note and although it was reviewed prior to signing some incorrect words or phrases could be present. documented in this encounter [facility] 04-16-2023 Miscellaneous Notes Vitamin D supplement signed, called patient and made her aware Addended by: ROCAEL POLO on: 04/21/2023 03:55 PM Modules accepted: Orders documented in this encounter [facility] 04-16-2023 Note Addended by: ROCAEL POLO on: 04/21/2023 03:55 PM Modules accepted: Orders [facility] 04-16-2023 Progress note Formatting of t his note might be different from the original. Vitamin D supplement signed, called patient and made her aware [facility] 04-10-2023 Telephone encounter Note Spoke to the patient. She is scheduled to [facility] next week with updated xrays [facility] 04-10-2023 Miscellaneous Notes Spoke to the patient. She is scheduled to [facility] next week with updated xrays Looks like this was sent to [facility] by mistake. Was routed to ortho after us. S: Patient spoke with [facility] nurse regarding foot pain B: Onset of symptoms/concern 2 weeks. A: Pt endorses increased left foot pain with walking. Pt endorses blister to left heel after wearing new shoes. Pt requesting office visit. R: Pt advised message to be sent to office for further assistance with appointent to be made. Patient understands care advice. No further needs at this time. Patient instructed to call back with new or worsening symptoms. Reason for Disposition [1] MODERATE pain (e.g., interferes with normal activities, limping) AND [2] present > 3 days Protocols used: Foot Kqyj-ARATZ-BC documented in this encounter [facility] 04-09-2023 Telephone encounter Note Looks like this was sent to [facility] by mistake. Was routed to ortho after us. [facility] 04-09-2023 Miscellaneous Notes Looks like this was sent to [facility] by mistake. Was routed to ortho after us. S: Patient spoke with [facility] nurse regarding foot pain B: Onset of symptoms/concern 2 weeks. A: Pt endorses increased left foot pain with walking. Pt endorses blister to left heel after wearing new shoes. Pt requesting office visit. R: Pt advised message to be sent to office for further assistance with appointent to be made. Patient understands care advice. No further needs at this time. Patient instructed to call back with new or worsening symptoms. Reason for Disposition [1] MODERATE pain (e.g., interferes with normal activities, limping) AND [2] present > 3 days Protocols used: Foot [id number]-CJKFH-[id number] documented in this encounter [facility] 04-08-2023 Telephone encounter Note S: Patient spoke with [facility] nurse regarding foot pain B: Onset of symptoms/concern 2 weeks. A: Pt endorses increased left foot pain with walking. Pt endorses blister to left heel after wearing new shoes. Pt requesting office visit. R: Pt advised message to be sent to office for further assistance with appointent to be made. Patient understands care advice. No further needs at this time. Patient instructed to call back with new or worsening symptoms. Reason for Disposition [1] MODERATE pain (e.g., interferes with normal activities, limping) AND [2] present > 3 days Protocols used: Foot Qffa-SITCY-LL [facility] 08-14-2022 Hospital Discharg e instructions Patient Education 08/14/2022 10:19:11 Total Knee Replacement, Care After, Uacl-zd-Vycp Total Knee Replacement, Care After This sheet gives you information about how to care for yourself after your procedure. Your doctor may also give you more specific instructions. If you have problems or questions, contact your doctor. What can I expect after the procedure? After the procedure, it is common to have: Pain. Swelling. A small amount of blood coming from your cut from surgery (incision). Clear fluid coming from your cut from surgery. Limited movement of your knee. Follow these instructions at home: Medicines Take uwkm-pcr-gkrdhqi and prescription medicines only as told by your doctor. If you were prescribed a blood thinner (anticoagulant), take it as told by your doctor. Ask your doctor if the medicine prescribed to you: ?Requires you to avoid driving or using heavy machinery. ?Can cause trouble pooping (constipation). You may need to take steps to prevent or treat trouble pooping: ?Drink enough fluid to keep your pee (urine) pale yellow. ?Take igye-arv-hntgsul or prescription medicines. ?Eat foods that are high in fiber. These include beans, whole grains, and fresh fruits and vegetables. ?Limit foods that are high in fat and sugar. These include fried or sweet foods. Bathing Do not take baths, swim, or use a hot tub until your doctor approves. Ask your doctor if you may take showers. You may only be allowed to take sponge baths. Keep your bandage (dressing) dry until your doctor says it can be taken off. Incision care and drain care Follow instructions from your doctor about how to take care of your cut from surgery. Make sure you: ?Wash your hands with soap and water before and after you change your bandage. If you cannot use soap and water, use hand cold roll inspector. ?Change your bandage as told by your doctor. ?Leave stitches (sutures), skin glue, or skin tape (adhesive) strips in place. They may need to stay in place for 2 weeks or longer. If tape strips get loose and curl up, you may trim the loose edges. Do not remove tape strips completely unless your doctor says it is okay. Check your cut from surgery and your drain site every day for signs of infection. Check for: ?More redness, swelling, or pain. ?More fluid or blood. ?Warmth. ?Pus or a bad smell. If you have a drain, follow instructions from your doctor about caring for it. Managing pain, stiffness, and swelling If told, put ice on your knee. ?Put ice in a plastic bag or use the icing device (cold flow pad or cryocuff) that you were given. Follow your doctor's directions about how to use the icing device. ?Place a towel between your skin and the bag or between your skin and the icing device. ?Leave the ice on for 20 minutes, 2 3 times per day. If told, put heat on your knee before you exercise. Use the heat source that your doctor recommends, such as a moist heat pack or a heating pad. ?Place a towel between your skin and the heat source. ?Leave the heat on for 20 30 minutes. ?Remove the heat if your skin turns bright red. This is very important if you are unable to feel pain, heat, or cold. You may have a greater risk of getting burned. Move your toes often. Raise (elevate) your knee above the level of your heart while you are sitting or lying down. ?Use several pillows to keep your leg straight. ?Do not put a pillow just under the knee. If the knee is bent for a long time, this may make the knee stiff. Wear elastic knee support as told by your doctor. Activity Rest as told by your doctor. Do not sit for a long time without moving. Get up to take short walks every 1 2 hours. This is important. Ask for help if you feel weak or unsteady. Ask your doctor what activities are safe for you. Avoid activities that put stress on your knees. These include running, jumping rope, and jumping jacks. Do not play contact sports until your doctor says it is okay. Do exercises as told by your physical therapist. If you have been sent home with a knee joint motion machine (continuous passive motion machine), use it as told by your doctor. Safety Do not use your leg to support your body weight until your doctor says that you can. Use crutches or a walker as told by your doctor. Do not drive until your doctor says it is okay. Ask your doctor when it is safe to drive. General instructions Do not use any products that contain nicotine or tobacco, such as cigarettes, e-cigarettes, and chewing tobacco. These can delay healing. If you need help quitting, ask your doctor. Wear special socks (compression stockings) as told by your doctor. Tell your doctor if you plan to have dental work. Also: ?Tell your dentist about your joint replacement. ?Ask your doctor if there are instructions you need to follow before dental care and routine cleanings. Keep all follow-up visits as told by your doctor. This is important. Contact a doctor if: You have more redness, swelling, or pain around your cut from surgery or your drain. You have more fluid or blood coming from your cut from surgery or your drain. You have pus or a bad smell coming from your cut from surgery or your drain. Your cut from surgery or your drain area feels warm to the touch. You have a fever. Your cut breaks open. You have knee pain that does not go away. The movement of your knee is getting worse. Your new joint feels loose. Get help right away if you have: Pain in your calf or thigh. Swelling in your calf or thigh. Shortness of breath. Trouble breathing. Chest pain. Summary After the procedure, it is common to have pain and swelling, blood or fluid coming from your cut from surgery, and trouble moving your knee. Follow instructions from your doctor about how to take care of your cut from surgery. Use crutches or a walker as told by your doctor. If you were prescribed a blood thinner, take it as told by your doctor. Keep all follow-up visits as told by your doctor. This is important. This information is not intended to replace advice given to you by your health care provider. Make sure you discuss any questions you have with your health care provider. Document Released: 11/16/2012 Document Revised: 01/03/2020 Document Reviewed: 04/08/2019 [employer] Patient Education 2020 [employer]. 08/14/2022 06:58:14 5 - [facility] Post-op Instruction 04/2017 ([id number]) [facility] Post-operative Instructions PLEASE FOLLOW [facility] POST-OP INSTRUCTIONS GIVEN WATCH FOR SIGNS OF INFECTION: call the office ([phone]) if experencing any of the following: (Usually appears 36-48 hours after surgery) Increased temperature (101 degrees Fahrenheit or higher) Redness or swelling Increased uncontrolled pain Foul odor or drainage Calf discomfort Significant swelling Or if having any chest pain, shortness of breath, or difficulty breathing or swallowing call the office or go the nearest Emergency Room. If you have any questions, please call your doctor at the number listed on your follow up instructions. Form: 338A (43743) R: 01/12 Follow Up Care 06/03/2022 11:31:48 With:[facility] Address: When:08/16/2022 11:26:00 Comments:Patient has it scheduled With:WALI BRANDON PA-C, Orthopedic Address: [facility] [place] [id number]- When:08/26/2022 14:45:00 Comments:Follow-up as scheduled [facility] 08-14-2022 Note Discharge Instructions Thank you for allowing [facility] to assist you with your healthcare needs. The following is important discharge information regarding your hospital visit. Your Care Team SERGIO SILVA DO [facility] Your Diagnosis Diabetes Hypertension, essential Hypothyroid Obstructive sleep apnea Primary osteoarthritis of left knee Status post total left knee replacement What to do next Follow Up Appointments Follow Up with WALI BRANDON PA-C, Orthopedic When 08/26/2022 02:45 PM EST Why: Follow-up as scheduled Where: [facility] [address] [place] [address] [place] [id number]- Follow Up with [facility] When 08/16/2022 11:26 AM EST Why: Patient has it scheduled Where: Allergies Grass (Unknown) Feathers (Unknown) flu vaccines sulfa drug (Syncope, Rash) Medications Please ask your primary doctor or pharmacist before taking any other medication not listed, including over the counter drugs, herbal medications, vitamins and or supplements as they may interact with your home medications. What How Much When Why Instructions Last Dose New aspirin (aspirin 81 mg oral delayed release tablet) 1 tab(s) by mouth Two (2) times a day Duration: 30 Days Take 81 mg aspirin twice daily with food for 4 weeks postoperatively for DVT prophylaxis. Pickup at [facility]/pharmacy #[id number] New docusate-senna (Senokot S 50 mg-8.6 mg oral tablet) 2 tab(s) by mouth Two (2) times a day Take until first bowel movement, then as needed Pickup at [facility]/pharmacy #[id number] New doxycycline (doxycycline hyclate 100 mg oral capsule) 1 cap by mouth Every 12 hours Duration: 14 Days Pickup at [facility]/pharmacy #[id number] New famotidine (Pepcid 20 mg oral tablet) 1 tab(s) by mouth Once a day Pickup at [facility]/pharmacy #[id number] New oxyCODONE (oxyCODONE 5 mg oral tablet ( IMMEDIATE release )) See instructions Status post total left knee replacement 1-2 tab(s) Oral q4h Pickup at [facility]/pharmacy #[id number] Changed acetaminophen (Tylenol) 1,000 Milligram by mouth Every 8 hours not to exceed 3000 mg/ day Unchanged cholecalciferol (Vitamin D3 50 mcg (2000 intl units) oral tablet) 1 tab(s) by mouth Once a day (in the evening) Unchanged dapagliflozin (Farxiga 10 mg oral tablet) 1 tab(s) by mouth Once a day Unchanged DME (Blood Glucose Test Strips) See instructions Diabetes Use 1 strip twice daily as directed One Touch Ultra Test strips Dx: E11.9 Unchanged DULoxetine (Cymbalta 60 mg oral delayed release capsule) 1 cap by mouth Daily at bedtime Unchanged herbal/ nutritional product 200 Milligram by mouth Once a day (in the morning) Turmeric 200 mg capsule Unchanged hydroxychloroquine (hydroxychloroquine 200 mg oral tablet) 1 tab(s) by mouth Two (2) times a day Unchanged levothyroxine (levothyroxine 150 mcg (0.15 mg) oral tablet) 1 tab(s) by mouth Once a day Unchanged lisinopril (lisinopril 10 mg oral tablet) 1 tab(s) by mouth Once a day Unchanged meloxicam (meloxicam 15 mg oral tablet) 1 tab(s) by mouth Once a day (in the evening) Unchanged SITagliptin (Januvia 100 mg oral tablet) 1 tab(s) by mouth Once a day Unchanged triamcinolone topical (triamcinolone 0.1% topical cream) 1 application Topical Two (2) times a day as needed for hives Pharmacy Information [facility]/pharmacy #[id number]: [address] [place] [address] [phone] What How Much When Comments Stop Taking tofacitinib (Xeljanz XR 11 mg oral tablet, extended release) 1 tab(s) by mouth Once a day Stop Taking traMADol (traMADol 50 mg oral tablet) 1 tab(s) by mouth Three (3) times a day TAKE 1 TABLET BY MOUTH THREE TIMES A DAY NEEDED Please take this list to your next doctor s visit. Bring all medications you take, including over the counter medications, herbals and other supplements with you to your doctor s visit. Patients and families are reminded to discard old lists and to update any records with all medication providers or retail pharmacies. Medication Leaflets famotidine (oral/injection) (fam [place] ti ronald) Heartburn Relief, Leader Acid Chief Pilot, Pepcid, Pepcid AC, Pepcid AC Maximum Strength, Zantac 360 What is the most important information I should know about famotidine? Follow all directions on the label and package. Use exactly as directed. What is famotidine? Famotidine is used to treat and prevent ulcers in the stomach and intestines. It also treats conditions in which the stomach produces too much acid, such as Bhavesh-Ramesh syndrome. Famotidine also treats gastroesophageal reflux disease (GERD) and other conditions in which acid backs up from the stomach into the esophagus, causing heartburn. The Zantac 360 brand of this medicine does not contain ranitidine, a medicine that was withdrawn from market in the [place]. Famotidine may also be used for purposes not listed in this medication guide. What should I discuss with my healthcare provider before taking famotidine? Heartburn can feel like a heart attack. Get emergency medical help if you have chest pain that spreads to your jaw or shoulder. You should not use this medicine if you are allergic to famotidine or similar medicines such as ranitidine (Zantac), cimetidine (Tagamet), or nizatidine (Axid). Ask a doctor or pharmacist if this medicine is safe to use if you have: kidney disease; liver disease; cancer stomach; or long QT syndrome (in you or a family member). Ask a doctor before using this medicine if you are or . How should I take famotidine? Use exactly as directed on the label, or as prescribed by your doctor. Famotidine oral is taken by mouth. Famotidine injection is given in a vein if you are unable to take the medicine by mouth. You may take famotidine oral with or without food. Measure liquid medicine with the supplied syringe or a dose-measuring device (not a kitchen spoon). Most ulcers heal within 4 weeks of famotidine treatment, but it may take up to 8 weeks of using this medicine before your ulcer heals. Keep using the medication as directed. Call your doctor if the condition you are treating with famotidine does not improve, or if it gets worse while using famotidine. Your treatment may also include changes in diet or lifestyle habits. Follow all instructions of your doctor or dietitian. Store at room temperature away from moisture, heat, and light. Do not allow the liquid medicine to freeze. Throw away any unused famotidine liquid that is older than 30 days. What happens if I miss a dose? Take the medicine as soon as you can, but skip the missed dose if it is almost time for your next dose. Do not take two doses at one time. What happens if I overdose? Seek emergency medical attention or call the Poison Help line at . What should I avoid while taking famotidine? Drinking alcohol may increase the risk of damage to your stomach. Avoid taking other stomach acid reducers unless your doctor has told you to. However, you may take an antacid (such as Maalox, Mylanta, Gaviscon, Milk of Magnesia, Rolaids, or Tums) with famotidine. What are the possible side effects of famotidine? Get emergency medical help if you have signs of an allergic reaction: hives; difficult breathing; swelling of your face, lips, tongue, or throat. Stop using famotidine and call your doctor at once if you have: confusion, hallucinations, agitation, lack of energy; a seizure; fast or pounding heartbeats, sudden dizziness (like you might pass out); or unexplained muscle pain, tenderness, or weakness especially if you also have fever, unusual tiredness, and dark colored urine. Some side effects may be more likely in older adults and in people who have severe kidney disease. Common side effects may include: headache; dizziness; or constipation or diarrhea. This is not a complete list of side effects and others may occur. Call your doctor for medical advice about side effects. You may report side effects to FDA at 8-732-LHR-3390. What other drugs will affect famotidine? Famotidine oral can make it harder for your body to absorb other medicines you take by mouth. Tell your doctor if you are taking: cefditoren; dasatinib; delavirdine; fosamprenavir; or tizanidine (if you are taking famotidine liquid). This list is not complete. Other drugs may affect famotidine, including prescription and xshb-jss-tgvucji medicines, vitamins, and herbal products. Not all possible drug interactions are listed here. Where can I get more information? Your doctor or pharmacist can provide more information about famotidine. Remember, keep this and all other medicines out of the reach of children, never share your medicines with others, and use this medication only for the indication prescribed. Every effort has been made to ensure that the information provided by [employer]') is accurate, up-to-date, and complete, but no guarantee is made to that effect. Drug information contained herein may be time sensitive. [employer] information has been compiled for use by healthcare practitioners and consumers in the [place] and therefore [employer] does not warrant that uses outside of the [place] are appropriate, unless specifically indicated otherwise. [employer] drug information does not endorse drugs, diagnose patients or recommend therapy. [employer] drug information is an informational resource designed to assist licensed healthcare practitioners in caring for their patients and/or to serve consumers viewing this service as a supplement to, and not a substitute for, the expertise, skill, knowledge and judgment of healthcare practitioners. The absence of a warning for a given drug or drug combination in no way should be construed to indicate that the drug or drug combination is safe, effective or appropriate for any given patient. [employer] does not assume any responsibility for any aspect of healthcare administered with the aid of information [employer] provides. The information contained herein is not intended to cover all possible uses, directions, precautions, warnings, drug interactions, allergic reactions, or adverse effects. If you have questions about the drugs you are taking, check with your doctor, nurse or pharmacist. Copyright 9589-7812 [employer]. Version: 18.. Revision Date: 02/15/2021. aspirin (oral) ( pir in) Arthritis Pain, Aspi-Cor, Aspir-Low, Edna Plus, Durlaza, Ecotrin, Miniprin, Vazalore What is the most important information I should know about aspirin? Aspirin can cause Ceci's syndrome, a serious and sometimes fatal condition in children. What is aspirin? Aspirin is a salicylate (st-SKR-gv-ate) that is used to treat pain, and reduce fever or inflammation. Aspirin is sometimes used to treat or prevent heart attacks, strokes, and chest pain (angina). Aspirin should be used for these conditions only under the supervision of a doctor. Aspirin may also be used for purposes not listed in this medication guide. What should I discuss with my healthcare provider before taking aspirin? Using aspirin in a child or teenager with flu symptoms or chickenpox can cause a serious or fatal condition called Ceci's syndrome. You should not use aspirin if you are allergic to it, or if you have: a recent history of stomach or intestinal bleeding; a bleeding disorder such as hemophilia; or if you have ever had an asthma attack or severe allergic reaction after taking aspirin or an NSAID (non-steroidal anti-inflammatory drug). Tell your doctor if you have ever had: asthma or seasonal allergies; stomach ulcers; liver disease; kidney disease; a bleeding or blood clotting disorder; gout; or heart disease, high blood pressure, or congestive heart failure. Taking aspirin during late may cause bleeding in the mother or the baby during delivery. Tell your doctor if you are or plan to become . You should not breastfeed while using this medicine. How should I take aspirin? Use exactly as directed on the label, or as prescribed by your doctor. Always follow directions on the medicine label about giving aspirin to a child. Take with food if aspirin upsets your stomach. You must chew the chewable tablet before you swallow it. Do not crush, chew, break, or open an enteric-coated or delayed/extended-release pill. Swallow it whole. Tell your doctor if you have a planned surgery. Store at room temperature away from moisture and heat. Do not use aspirin if you smell a strong vinegar odor in the aspirin bottle. The medicine may no longer be effective. What happens if I miss a dose? Aspirin is used when needed. If you are on a dosing schedule, skip any missed dose. Do not use two doses at one time. What happens if I overdose? Seek emergency medical attention or call the Poison Help line at . Overdose may cause stomach pain, vomiting, diarrhea, vision or hearing problems, fast or slow breathing, or confusion. What should I avoid while taking aspirin? Avoid alcohol. Heavy drinking can increase your risk of stomach bleeding. Avoid taking ibuprofen if you take aspirin to prevent stroke or heart attack. Ibuprofen can make aspirin less effective in protecting your heart and blood vessels. Ask your doctor how far apart your doses should be. Ask a doctor or pharmacist before using other medicines for pain, fever, swelling, or cold/flu symptoms. They may contain ingredients similar to aspirin (such as magnesium salicylate, ibuprofen, ketoprofen, or naproxen). What are the possible side effects of aspirin? Get emergency medical help if you have signs of an allergic reaction: hives; difficult breathing; swelling of your face, lips, tongue, or throat. Stop using aspirin and call your doctor at once if you have: ringing in your ears, confusion, hallucinations, rapid breathing, seizure (convulsions); severe nausea, vomiting, or stomach pain; bloody or tarry stools, coughing up blood or vomit that looks like coffee grounds; fever lasting longer than 3 days; or swelling, or pain lasting longer than 10 days. Common side effects may include: upset stomach, heartburn; drowsiness; or mild headache. This is not a complete list of side effects and others may occur. Call your doctor for medical advice about side effects. You may report side effects to FDA at 7-712-VYY-0381. What other drugs will affect aspirin? Ask your doctor before using aspirin if you take an antidepressant. Taking certain antidepressants with aspirin may cause you to bruise or bleed easily. Ask a doctor or pharmacist before using aspirin with any other medications, especially: a blood thinner (warfarin, Coumadin, Jantoven), or other medication used to prevent blood clots; or other salicylates such as Nuprin Backache Caplet, Kaopectate, KneeRelief, Pamprin Cramp Formula, Pepto-Bismol, Tricosal, Trilisate, and others. This list is not complete. Other drugs may affect aspirin, including prescription and nwql-dsm-fwcfeuc medicines, vitamins, and herbal products. Not all possible drug interactions are listed here. Where can I get more information? Your pharmacist can provide more information about aspirin. Remember, keep this and all other medicines out of the reach of children, never share your medicines with others, and use this medication only for the indication prescribed. Every effort has been made to ensure that the information provided by [employer] is accurate, up-to-date, and complete, but no guarantee is made to that effect. Drug information contained herein may be time sensitive. [employer] information has been compiled for use by healthcare practitioners and consumers in the [place] and therefore [employer] does not warrant that uses outside of the [place] are appropriate, unless specifically indicated otherwise. [employer] drug information does not endorse drugs, diagnose patients or recommend therapy. [employer] drug information is an informational resource designed to assist licensed healthcare practitioners in caring for their patients and/or to serve consumers viewing this service as a supplement to, and not a substitute for, the expertise, skill, knowledge and judgment of healthcare practitioners. The absence of a warning for a given drug or drug combination in no way should be construed to indicate that the drug or drug combination is safe, effective or appropriate for any given patient. [employer] does not assume any responsibility for any aspect of healthcare administered with the aid of information [employer] provides. The information contained herein is not intended to cover all possible uses, directions, precautions, warnings, drug interactions, allergic reactions, or adverse effects. If you have questions about the drugs you are taking, check with your doctor, nurse or pharmacist. Copyright 6440-9499 [employer]. Version: 16.03. Revision Date: 03/05/2021. doxycycline (oral/injection) (DOX chava mccoy) Acticlate, Adoxa, Alodox, Avidoxy, Doryx, Mondoxyne NL, Monodox, Morgidox, Okebo, Oracea, Oraxyl, Targadox, Vibramycin What is the most important information I should know about doxycycline? You should not take this medicine if you are allergic to any tetracycline antibiotic. Children younger than 8 years old should use doxycycline only in cases of severe or life-threatening conditions. This medicine can cause permanent yellowing or graying of the teeth in children Using doxycycline during could harm the unborn baby or cause permanent tooth discoloration later in the baby's life. What is doxycycline? Doxycycline is a tetracycline antibiotic that Doxycycline is used to treat many different bacterial infections, such as acne, urinary tract infections, intestinal infections, eye infections, gonorrhea, chlamydia, periodontitis (gum disease), and others. Doxycycline is also used to treat blemishes, bumps, and acne-like lesions caused by rosacea. Doxycycline will not treat facial redness caused by rosacea. Some forms of doxycycline are used to prevent malaria, to treat anthrax, or to treat infections caused by mites, ticks, or lice. Doxycycline may also be used for purposes not listed in this medication guide. What should I discuss with my healthcare provider before taking doxycycline? You should not take this medicine if you are allergic to doxycycline or other tetracycline antibiotics such as demeclocycline, minocycline, tetracycline, or tigecycline. Tell your doctor if you have ever had: liver disease; kidney disease; asthma or sulfite allergy; increased pressure inside your skull; or if you also take isotretinoin, seizure medicine, or a blood thinner such as warfarin (Coumadin). If you are using doxycycline to treat gonorrhea, your doctor may test you to make sure you do not also have syphilis, another sexually transmitted disease. Taking this medicine during may affect tooth and bone development in the unborn baby. Taking doxycycline during the last half of can cause permanent tooth discoloration later in the baby's life. Tell your doctor if you are or if you become . Doxycycline can make control pills less effective. Ask your doctor about using a non-hormonal control (condom, diaphragm with spermicide) to prevent . Doxycycline can pass into breast milk and may affect bone and tooth development in a nursing infant. Do not breastfeed while you are taking doxycycline. Doxycycline can cause permanent yellowing or graying of the teeth in children younger than 8 years old. Children should use doxycycline only in cases of severe or life-threatening conditions such as anthrax or [place] spotted fever. The benefit of treating a serious condition may outweigh any risks to the child's tooth development. How should I take doxycycline? Follow all directions on your prescription label and read all medication guides or instruction sheets. Use the medicine exactly as directed. Take doxycycline with a full glass of water. Drink plenty of liquids while you are taking doxycycline. Read and carefully follow any Instructions for Use provided with your medicine. Ask your doctor or pharmacist if you do not understand these instructions. Most brands of doxycyline may be taken with food or milk if the medicine upsets your stomach. Different brands of doxycycline may have different instructions about taking them with or without food. Take Oracea on an empty stomach, at least 1 hour before or 2 hours after a meal. You may need to split a doxycycline tablet to get the correct dose. Follow your doctor's instructions. Swallow a delayed-release capsule or tablet whole. Do not crush, chew, break, or open it. Measure liquid medicine with the dosing syringe provided, or with a special dose-measuring spoon or medicine cup. If you do not have a dose-measuring device, ask your pharmacist for one. If you take doxycycline to prevent malaria: Start taking the medicine 1 or 2 days before entering an area where malaria is common. Continue taking the medicine every day during your stay and for at least 4 weeks after you leave the area. Doxycycline is usually given by injection only if you are unable to take the medicine by mouth. A healthcare provider will give you this injection as an infusion into a vein. Use this medicine for the full prescribed length of time, even if your symptoms quickly improve. Skipping doses can increase your risk of infection that is resistant to medication. Doxycycline will not treat a viral infection such as the flu or a common cold. Store at room temperature away from moisture, heat, and light. Throw away any unused medicine after the expiration date on the label has passed. Using doxycycline can cause damage to your kidneys. What happens if I miss a dose? Take the medicine as soon as you can, but skip the missed dose if it is almost time for your next dose. Do not take two doses at one time. What happens if I overdose? Seek emergency medical attention or call the Poison Help line at . What should I avoid while taking doxycycline? Do not take iron supplements, multivitamins, calcium supplements, antacids, or laxatives within 2 hours before or after taking doxycycline. Avoid taking any other antibiotics with doxycycline unless your doctor has told you to. Doxycycline could make you sunburn more easily. Avoid sunlight or tanning beds. Wear protective clothing and use sunscreen (SPF 30 or higher) when you are outdoors. Antibiotic medicines can cause diarrhea, which may be a sign of a new infection. If you have diarrhea that is watery or bloody, call your doctor. Do not use anti-diarrhea medicine unless your doctor tells you to. What are the possible side effects of doxycycline? Get emergency medical help if you have signs of an allergic reaction (hives, difficult breathing, swelling in your face or throat) or a severe skin reaction (fever, sore throat, burning in your eyes, skin pain, red or purple skin rash that spreads and causes blistering and peeling). Seek medical treatment if you have a serious drug reaction that can affect many parts of your body. Symptoms may include: skin rash, fever, swollen glands, flu-like symptoms, muscle aches, severe weakness, unusual bruising, or yellowing of your skin or eyes. This reaction may occur several weeks after you began using doxycycline. Call your doctor at once if you have: severe stomach pain, diarrhea that is watery or bloody; throat irritation, trouble swallowing; chest pain, irregular heart rhythm, feeling short of breath; little or no urination; low white blood cell counts--fever, chills, swollen glands, body aches, weakness, pale skin, easy bruising or bleeding; increased pressure inside the skull--severe headaches, ringing in your ears, dizziness, nausea, vision problems, pain behind your eyes; or signs of liver or pancreas problems--loss of appetite, upper stomach pain (that may spread to your back), tiredness, nausea or vomiting, fast heart rate, dark urine, jaundice (yellowing of the skin or eyes). Common side effects may include: nausea, vomiting, upset stomach, loss of appetite; mild diarrhea; skin rash or itching; darkened skin color; or vaginal itching or discharge. This is not a complete list of side effects and others may occur. Call your doctor for medical advice about side effects. You may report side effects to FDA at 3-205-CUN-3614. What other drugs will affect doxycycline? Sometimes it is not safe to use certain medications at the same time. Some drugs can affect your blood levels of other drugs you take, which may increase side effects or make the medications less effective. Other drugs may affect doxycycline, including prescription and uewg-vlm-nqwsgom medicines, vitamins, and herbal products. Tell your doctor about all your current medicines and any medicine you start or stop using. Where can I get more information? Your pharmacist can provide more information about doxycycline. Remember, keep this and all other medicines out of the reach of children, never share your medicines with others, and use this medication only for the indication prescribed. Every effort has been made to ensure that the information provided by [employer] is accurate, up-to-date, and complete, but no guarantee is made to that effect. Drug information contained herein may be time sensitive. [employer] information has been compiled for use by healthcare practitioners and consumers in the [place] and therefore [employer] does not warrant that uses outside of the [place] are appropriate, unless specifically indicated otherwise. [employer] drug information does not endorse drugs, diagnose patients or recommend therapy. [employer] drug information is an informational resource designed to assist licensed healthcare practitioners in caring for their patients and/or to serve consumers viewing this service as a supplement to, and not a substitute for, the expertise, skill, knowledge and judgment of healthcare practitioners. The absence of a warning for a given drug or drug combination in no way should be construed to indicate that the drug or drug combination is safe, effective or appropriate for any given patient. [employer] does not assume any responsibility for any aspect of healthcare administered with the aid of information [employer] provides. The information contained herein is not intended to cover all possible uses, directions, precautions, warnings, drug interactions, allergic reactions, or adverse effects. If you have questions about the drugs you are taking, check with your doctor, nurse or pharmacist. Copyright 0779-9476 [employer]. Version: 21.04. Revision Date: 07/12/2020. docusate and senna (DOK srikanth sate and SEN a) Colace 2-in-1, Dok Plus, Danielle-Colace, Senexon-S, Senna Plus, Senna S, Senna-Time S, Senokot S, SenoSol-SS, Stool Softener with Laxative What is the most important information I should know about docusate and senna? Use exactly as directed on the label, or as prescribed by your doctor. What is docusate and senna? Docusate is a stool softener. Senna is a laxative. Docusate and senna is a combination medicine used to treat occasional constipation. Docusate and senna may also be used for purposes not listed in this medication guide. What should I discuss with my healthcare provider before using docusate and senna? You should not use this medicine if you are allergic to docusate or senna, or if you are also taking mineral oil. Ask a doctor or pharmacist if this medicine is safe to use if you have ever had: nausea or vomiting; stomach pain; a sudden change in bowel habits that lasts for 2 weeks or longer; or an intestinal disorder such as Crohn's disease or ulcerative colitis. Ask a doctor before using this medicine if you are or . Do not give this medicine to a child younger than 2 years old without medical advice. How should I use docusate and senna? Use exactly as directed on the label, or as prescribed by your doctor. Take docusate and senna with a full glass of water. It may be best to take this medicine at night or at bedtime. Docusate and senna should cause you to have a bowel movement within 6 to 12 hours. Do not take docusate and senna for longer than 7 days in a row, unless your doctor tells you to. Call your doctor if your constipation does not improve or if it gets worse after taking docusate and senna. Store at room temperature away from moisture and heat. What happens if I miss a dose? Since docusate and senna is used when needed, you may not be on a dosing schedule. Skip any missed dose if it's almost time for your next dose. Do not use two doses at one time. What happens if I overdose? Seek emergency medical attention or call the Poison Help line at . Overdose symptoms may include nausea, vomiting, stomach pain, or diarrhea. What should I avoid while using docusate and senna? Ask a doctor or pharmacist before using any other laxative or other stool softener that may contain ingredients similar to docusate or senna. What are the possible side effects of docusate and senna? Get emergency medical help if you have signs of an allergic reaction: hives; difficulty breathing; swelling of your face, lips, tongue, or throat. Stop using docusate and senna and call your doctor at once if you have: rectal bleeding; severe stomach pain, nausea, vomiting; or no bowel movement. Common side effects may include: gas, bloating; diarrhea; or mild nausea. This is not a complete list of side effects and others may occur. Call your doctor for medical advice about side effects. You may report side effects to FDA at 7-071-PLJ-8054. What other drugs will affect docusate and senna? Other drugs may affect docusate and senna, including prescription and jlii-hay-czqsoem medicines, vitamins, and herbal products. Tell your doctor about all your current medicines and any medicine you start or stop using. Where can I get more information? Your pharmacist can provide more information about docusate and senna. Remember, keep this and all other medicines out of the reach of children, never share your medicines with others, and use this medication only for the indication prescribed. Every effort has been made to ensure that the information provided by [employer] is accurate, up-to-date, and complete, but no guarantee is made to that effect. Drug information contained herein may be time sensitive. [employer] information has been compiled for use by healthcare practitioners and consumers in the [place] and therefore [employer] does not warrant that uses outside of the [place] are appropriate, unless specifically indicated otherwise. [employer] drug information does not endorse drugs, diagnose patients or recommend therapy. [employer] drug information is an informational resource designed to assist licensed healthcare practitioners in caring for their patients and/or to serve consumers viewing this service as a supplement to, and not a substitute for, the expertise, skill, knowledge and judgment of healthcare practitioners. The absence of a warning for a given drug or drug combination in no way should be construed to indicate that the drug or drug combination is safe, effective or appropriate for any given patient. [employer] does not assume any responsibility for any aspect of healthcare administered with the aid of information [employer] provides. The information contained herein is not intended to cover all possible uses, directions, precautions, warnings, drug interactions, allergic reactions, or adverse effects. If you have questions about the drugs you are taking, check with your doctor, nurse or pharmacist. Copyright 9872-2126 [employer]. Version: 3.02. Revision Date: 11/22/2020. lisinopril (lyse [place] pril) ivil, Qbrelis, Zestril What is the most important information I should know about lisinopril? Do not use if you are , and tell your doctor right away if you become . If you have diabetes, do not use lisinopril together with any medication that contains aliskiren (a blood pressure medicine). Do not take lisinopril within 36 hours before or after taking medicine that contains sacubitril (such as Entresto). What is lisinopril? Lisinopril is an KELLY inhibitor that is used to treat high blood pressure (hypertension) in adults and children who are at least 6 years old. Lisinopril is also used to treat congestive heart failure in adults, or to improve survival after a heart attack. Lisinopril may also be used for purposes not listed in this medication guide. What should I discuss with my healthcare provider before taking lisinopril? You should not use lisinopril if you are allergic to it, or if you: have a history of angioedema; recently took a heart medicine called sacubitril; or are allergic to any other KELLY inhibitor, such as benazepril, captopril, enalapril, fosinopril, moexipril, perindopril, quinapril, ramipril, or trandolapril. Do not take lisinopril within 36 hours before or after taking medicine that contains sacubitril (such as Entresto). If you have diabetes, do not use lisinopril together with any medication that contains aliskiren (a blood pressure medicine). You may also need to avoid taking lisinopril with aliskiren if you have kidney disease. Tell your doctor if you have ever had: kidney disease (or if you are on dialysis); liver disease; or high levels of potassium in your blood. Do not use if you are , and tell your doctor right away if you become . Lisinopril can cause injury or to the unborn baby if you take the medicine during your second or third trimester. You should not breastfeed while using this medicine. How should I take lisinopril? Follow all directions on your prescription label and read all medication guides or instruction sheets. Your doctor may occasionally change your dose. Use the medicine exactly as directed. Drink plenty of water each day while you are taking this medicine. Lisinopril can be taken with or without food. Measure liquid medicine carefully. Use the dosing syringe provided, or use a medicine dose-measuring device (not a kitchen spoon). Your blood pressure will need to be checked often. Your kidney function and electrolytes may also need to be checked. Call your doctor if you are sick with vomiting or diarrhea, or if you are sweating more than usual. You can easily become dehydrated while taking lisinopril. This can lead to very low blood pressure, a serious electrolyte imbalance, or kidney failure. If you need surgery, tell the surgeon ahead of time that you are using lisinopril. If you have high blood pressure, keep using this medicine even if you feel well. High blood pressure often has no symptoms. You may need to use blood pressure medicine for the rest of your life. Store at room temperature away from moisture and heat. Do not freeze the oral liquid. What happens if I miss a dose? Take the medicine as soon as you can, but skip the missed dose if it is almost time for your next dose. Do not take two doses at one time. What happens if I overdose? Seek emergency medical attention or call the Poison Help line at . What should I avoid while taking lisinopril? Drinking alcohol can further lower your blood pressure and may increase certain side effects of lisinopril. Avoid becoming overheated or dehydrated during exercise, in hot weather, or by not drinking enough fluids. Lisinopril can decrease sweating and you may be more prone to heat stroke. Do not use potassium supplements or salt substitutes, unless your doctor has told you to. Avoid getting up too fast from a sitting or lying position, or you may feel dizzy. What are the possible side effects of lisinopril? Get emergency medical help if you have signs of an allergic reaction: hives; severe stomach pain; difficulty breathing; swelling of your face, lips, tongue, or throat. You may be more likely to have an allergic reaction if you are -[place]. Call your doctor at once if you have: a light-headed feeling, like you might pass out; fever, sore throat; high potassium--nausea, weakness, tingly feeling, chest pain, irregular heartbeats, loss of movement; kidney problems--little or no urination, swelling in your feet or ankles, feeling tired or short of breath; or liver problems--nausea, upper stomach pain, itching, tired feeling, loss of appetite, dark urine, dayday-colored stools, jaundice (yellowing of the skin or eyes). Common side effects may include: headache, dizziness; cough; or chest pain. This is not a complete list of side effects and others may occur. Call your doctor for medical advice about side effects. You may report side effects to FDA at 9-477-RKX-[phone]. What other drugs will affect lisinopril? Tell your doctor about all your other medicines, especially: a diuretic or 'water pill'; lithium; gold injections to treat arthritis; insulin or oral diabetes medicine; a potassium supplement; medicine to prevent organ transplant rejection--everolimus, sirolimus, tacrolimus, temsirolimus; or NSAIDs (nonsteroidal anti-inflammatory drugs)--aspirin, ibuprofen (Advil, Motrin), naproxen (Aleve), celecoxib, diclofenac, indomethacin, meloxicam, and others. This list is not complete. Other drugs may affect lisinopril, including prescription and rqvh-[id number] medicines, vitamins, and herbal products. Not all possible drug interactions are listed here. Where can I get more information? Your pharmacist can provide more information about lisinopril. Remember, keep this and all other medicines out of the reach of children, never share your medicines with others, and use this medication only for the indication prescribed. Every effort has been made to ensure that the information provided by [employer] is accurate, up-to-date, and complete, but no guarantee is made to that effect. Drug information contained herein may be time sensitive. [employer] information has been compiled for use by healthcare practitioners and consumers in the [place] and therefore [employer] does not warrant that uses outside of the [place] are appropriate, unless specifically indicated otherwise. [employer]'s drug information does not endorse drugs, diagnose patients or rec (more content not included)... [facility] 08-14-2022 Note Date of Service 08/14/2022 Chief Complaint Left knee pain Subjective Patient seen and evaluated while resting in recliner. She was just up walking with therapy and states that she passed working with them. Patient advised that her labs and vitals all looked good overnight. From hospitalist standpoint, patient is cleared to discharge home today. She denies any fever, chills, cough, shortness of breath, chest pain, abdominal pain, nausea or dysuria. All questions answered. Objective Vitals and Measurements T: 36.1 C (Oral) TMIN: 36.0 C (Temporal Artery) TMAX: 36.8 C (Oral) HR: 60(Monitored) RR: 16 BP: 117/58 SpO2: 98% HT: 165.1 cm WT: 125.2 kg BMI: 45.93 Intake and Output 7AM Yesterday to 7AM Today Intake and Output (Last 24 hours) Intake Oral Intake 420.00 Administration Information 3318.91 Supplement Intake 120.00 Output Intra-Op EBL 75.00 Stool Count 0.00 Urine Count 5.00 Total Summary Total Intake 3858.91 Total Output 75.00 Fluid Balance 3783.91 Physical Exam General: No acute distress. Patient is alert and appropriate. Skin: No rash. Skin is warm, dry and intact. HEENT: Head is normocephalic, atraumatic. Pupils are equal, round and reactive. Neck: Supple. No lymphadenopathy, thyromegaly. Lungs: Bilaterally clear but diminished without crepitation or wheeze. Unlabored. Heart: Heart is regular rhythm, S1, S2. No murmurs, gallops or rubs. Abdomen: Abdomen is soft, nontender, obese. Bowels sounds present in all quadrants. Extremities: No clubbing, cyanosis, or edema. Peripheral pulses palpable. No calf tenderness. Left knee surgical dressing is dry and intact. Neurological: Patient is awake and alert to person, place and time. Following simple commands, moving all extremities. Weight Current Weight Dosing Weight: 125.2 kg (08/13/22) Current Weight: 126.5 kg (08/13/22) Dosing Weight: 126.5 kg (08/13/22) Medications Medications (29) Active Scheduled: (18) acetaminophen 500 mg Tablet 1,000 mg 2 tab(s), Oral, q8h alogliptin 6.25 mg tablet 25 mg 4 tab(s), Oral, qDay aspirin 81 mg Chewable 81 mg 1 tab(s), Oral, BIDM bisacodyl 5 mg EC tablet 10 mg 2 tab(s), Oral, Once dapagliflozin 10 mg tablet 10 mg 1 tab(s), Oral, qDay docusate sodium 100 mg Capsule 100 mg 1 cap(s), Oral, BID docusate-senna (Senokot S) 50 mg-8.6 mg Tablet 2 tab(s), Oral, BID doxycycline hyclate 100 mg Capsule 100 mg 1 cap(s), Oral, q12h duloxetine [address] capsule 60 mg 1 cap(s), Oral, qHS famotidine 20 mg tablet 20 mg 1 tab(s), Oral, qDay hydroxychloroquine 200 mg tablet 200 mg 1 tab(s), Oral, BID insulin lispro 100 units/mL Soln (3 mL) Give 0-5 units/dose, Subcutaneous, TIDAC levothyroxine 75 mcg tablet 150 mcg 2 tab(s), Oral, qDay lisinopril 5 mg tablet 10 mg 2 tab(s), Oral, qDay magnesium hydroxide 8% Suspension 30 mL UD 30 mL, Oral, Daily meloxicam 7.5 mg tablet 7.5 mg 1 tab(s), Oral, BIDM multivitamin (Myadec) with minerals Therapeutic Multiple Vitamins with Minerals Tablet 1 tab(s), Oral, qDayM ondansetron 2 mg/ 1 mL 2 mL INJ 4 mg 2 mL, IV Push, q8h Continuous: (1) Lactated Ringers 1,000 mL 1,000 mL, Intravenous, 100 mL/hr PRN: (10) acetaminophen 325 mg Tablet 650 mg 2 tab(s), Oral, q4h diphenhydramine 25 mg tablet 25 mg 1 tab(s), Oral, q6h diphenhyDRAMINE 50 mg/mL (1 mL) INJ 25 mg 0.5 mL, IV Push, q6h ketorolac 30 mg/mL (1 mL) vial 15 mg 0.5 mL, IV Push, q6h morphine 2 mg/mL 1 mL syringe 2 mg 1 mL, IV Push, q1h ondansetron 2 mg/ 1 mL 2 mL INJ 4 mg 2 mL, IV Push, q8h oxycodone 5 mg tablet (immediate release) 5 mg 1 tab(s), Oral, q4h oxycodone 5 mg tablet (immediate release) 10 mg 2 tab(s), Oral, q4h prochlorperazine 10 mg/2 mL vial 5 mg 1 mL, IV Push, q6h sodium biphosphate-sodium phosphate 19 gm-7 gm Enema 133 mL, Rectal, qDay Lab Results 08/14 05:16 WBC: 12.3 H Hgb: 12.5 Hct: 37.6 Platelet: 201 Neutrophil %: 81.7 H Glucose Level: 157 H Sodium Level: 140 Potassium Level: 4.1 BUN: 12 Creatinine Lvl (s): 0.75 Imaging Results and Diagnostics XR Knee 1 or 2 Views Left Result Date: August 13, 2022 Verified By: WANDA GODFREY MD CLINICAL STATEMENT: IMPRESSION: Left knee arthroplasty with immediate postoperative changes. EKG No qualifying data available. Assessment/Plan 1. Diabetes Chronic *Blood sugar checks before meals and at bedtime. *Cover with sliding scale insulin. *Continue diabetic diet as tolerated. *Continue current home medication. *Blood sugar goal of 180 or less and avoid hypoglycemia - patient at goal overnight. 2. Hypertension, essential Chronic, controlled *Continue current home medications. *SBP goal of 140 or less - met goals. 3. Hypothyroid Chronic *Continue Levothyroxine at current dose. 4. Obstructive sleep apnea Chronic *Continue CPAP at bedtime and with naps. 5. Primary osteoarthritis of left knee Management per primary team. *Continue PT and OT as outpatient. *Continue PRN pain medication as needed. Patient seen and evaluated while sitting in recliner. Labs and vital signs were stable overnight. Mild leukocytosis this morning, 12.3, but likely from steroid administration during surgery. Patient denies any fever or chills. From hospitalist perspective, patient is cleared for discharge home today. DVT prophylaxis with SCDs, aspirin 81 mg PO BID. Code status: Full Code. Labs, diagnostic test and progress notes reviewed as noted in HPI. Plan of care discussed with patient. All questions answered. Patient verbalizes understanding and is agreeable with plan of care. This case was discussed with collaborating physician, Dr. Reji See. Time Spent 35 minutes Digitally Signed by BERNIE RIZO on 08/14/2022 07:24 PM [facility] 08-14-2022 Note Date of Service August 14, 2022 Subjective The patient was sitting in bed upon examination. Patient denies any chest pain, shortness of breath, dizziness, lightheadedness, nausea or vomiting, or calf pain. No adverse overnight events. Pain has been controlled on medications. Patient overall is doing well. She has no complaints this morning. She does have previous history of right total knee arthroplasty in [address] Tolu Franco. That procedure was outpatient but patient required observation stay due to elevated BMI and increased A1c. Objective Vitals and Measurements T: 36.3 C (Oral) TMIN: 36.0 C (Temporal Artery) TMAX: 36.8 C (Temporal Artery) HR: 60(Apical) RR: 18 BP: 137/71 SpO2: 97% HT: 165.1 cm WT: 125.2 kg BMI: 45.93 Intake and Output 7AM Yesterday to 7AM Today Intake and Output (Last 24 hours) Intake Oral Intake 420.00 Administration Information 2318.91 Supplement Intake 0.00 Output Intra-Op EBL 75.00 Stool Count 0.00 Urine Count 5.00 Total Summary Total Intake 2738.91 Total Output 75.00 Fluid Balance 2663.91 Physical Exam Vital signs stable, afebrile SCDs and MICHAEL hose are in place bilaterally. On the right knee the MICHAEL hose is rolling down. Currently it is fitting appropriately on the left knee. If we do have trouble with the MICHAEL hose I would recommend we remove those MICHALE hose and place Kelly wrap on the knee. This was discussed with the patient and I do not want the MICHAEL hose to roll down over the incision on the left knee. She did voice understanding and agreement. Patient is able to plantarflex and dorsiflex actively Sensation is intact to saphenous, sural, superficial and deep peroneal, and tibial distribution Dressinga are clean dry and intact Negative signs and symptoms of DVT, negative Homans bilaterally Weight Current Weight Dosing Weight: 125.2 kg (08/13/22) Current Weight: 126.5 kg (08/13/22) Dosing Weight: 126.5 kg (08/13/22) Medications Medications (30) Active Scheduled: (19) acetaminophen 500 mg Tablet 1,000 mg 2 tab(s), Oral, q8h alogliptin 6.25 mg tablet 25 mg 4 tab(s), Oral, qDay aspirin 81 mg Chewable 81 mg 1 tab(s), Oral, BIDM bisacodyl 5 mg EC tablet 10 mg 2 tab(s), Oral, Once dapagliflozin 10 mg tablet 10 mg 1 tab(s), Oral, qDay docusate sodium 100 mg Capsule 100 mg 1 cap(s), Oral, BID docusate-senna (Senokot S) 50 mg-8.6 mg Tablet 2 tab(s), Oral, BID doxycycline hyclate 100 mg Capsule 100 mg 1 cap(s), Oral, q12h duloxetine [address] capsule 60 mg 1 cap(s), Oral, qHS famotidine 20 mg tablet 20 mg 1 tab(s), Oral, qDay hydroxychloroquine 200 mg tablet 200 mg 1 tab(s), Oral, BID insulin lispro 100 units/mL Soln (3 mL) Give 0-5 units/dose, Subcutaneous, TIDAC Lactated Ringers Injection 1000 mL * Bolus * 1,000 mL, IV Bolus, PREOP pharm levothyroxine 75 mcg tablet 150 mcg 2 tab(s), Oral, qDay lisinopril 5 mg tablet 10 mg 2 tab(s), Oral, qDay magnesium hydroxide 8% Suspension 30 mL UD 30 mL, Oral, Daily meloxicam 7.5 mg tablet 7.5 mg 1 tab(s), Oral, BIDM multivitamin (Myadec) with minerals Therapeutic Multiple Vitamins with Minerals Tablet 1 tab(s), Oral, qDayM ondansetron 2 mg/ 1 mL 2 mL INJ 4 mg 2 mL, IV Push, q8h Continuous: (1) Lactated Ringers 1,000 mL 1,000 mL, Intravenous, 100 mL/hr PRN: (10) acetaminophen 325 mg Tablet 650 mg 2 tab(s), Oral, q4h diphenhydramine 25 mg tablet 25 mg 1 tab(s), Oral, q6h diphenhyDRAMINE 50 mg/mL (1 mL) INJ 25 mg 0.5 mL, IV Push, q6h ketorolac 30 mg/mL (1 mL) vial 15 mg 0.5 mL, IV Push, q6h morphine 2 mg/mL 1 mL syringe 2 mg 1 mL, IV Push, q1h ondansetron 2 mg/ 1 mL 2 mL INJ 4 mg 2 mL, IV Push, q8h oxycodone 5 mg tablet (immediate release) 5 mg 1 tab(s), Oral, q4h oxycodone 5 mg tablet (immediate release) 10 mg 2 tab(s), Oral, q4h prochlorperazine 10 mg/2 mL vial 5 mg 1 mL, IV Push, q6h sodium biphosphate-sodium phosphate 19 gm-7 gm Enema 133 mL, Rectal, qDay Lab Results 08/14 05:16 Glucose Level: 157 H Sodium Level: 140 Potassium Level: 4.1 BUN: 12 Creatinine Lvl (s): 0.75 EKG No qualifying data available. Assessment/Plan 1. Diabetes 2. Hypertension, essential 3. Hypothyroid 4. Obstructive sleep apnea 5. Primary osteoarthritis of left knee 1. Status post left total knee arthroplasty postop day #1 2. Continue pain medications: Tylenol, meloxicam, oxycodone. Do not take any other nonsteroidal anti-inflammatories while on meloxicam/Mobic 3. DVT prophylaxis: Take 81 mg aspirin twice daily with food for 4 weeks postoperatively for DVT prophylaxis. Patient denies previous history of DVT or pulmonary embolism 4. Physical therapy: Weightbearing as tolerated with walker 5. H & H: CBC currently unavailable but BMP findings stable, asymptomatic. 6. Encouraged incentive spirometry 7. Continue postoperative medical management per medicine: History of type 2 diabetes mellitus and recommendations keeping the blood glucose level less than 180 8. Continue doxycycline for 2 weeks postoperatively. She is currently on doxycycline due to elevated BMI greater than 40 as well as A1c greater than 7.0. Patient has increased risk of infection. I discussed with the patient potential side effects including sensitivity to sunlight. She should take appropriate precautions. Also recommend probiotic while on the antibiotic. 9. Disposition: Plan will be for discharge home today as long as patient's pain is well controlled, tolerates therapy, and medically stable. Patient has stopped her Xeljanz and we will continue to hold off of this medication for an additional 2 weeks. She does have tramadol at home in which I explained to her she should never mix to narcotics together. Continue with the oxycodone for postoperative pain control. Patient would like her prescriptions E scribed to [facility] in [facility]. She has outpatient physical therapy established. She will follow-up per postop instructions. OARRS was attempted but error occurred. This dictation was created using voice recognition software. Phonetic and/or grammatical errors may exist. Digitally Signed by WALI BRANDON PA-C on 08/14/2022 06:58 AM [facility] 08-13-2022 Note ORIGINAL HISTORY: Post arthroplasty COMPARISON: No FINDINGS: There is an arthroplasty in near anatomic alignment. There is no radiographic evidence of loosening or failure of hardware. There is gas in the joint space and overlying soft tissues, and there are skin kelsie. IMPRESSION: Left knee arthroplasty with immediate postoperative changes. Interpreted by: Wanda Godfrey MD Preliminary Report By: Wanda Godfrey MD Electronically signed By Wanda Godfrey MD Dictated Date: 08/13/2022 10:37:17 AM Prelim Date: 08/13/2022 10:38:08 AM Sign Date: 08/13/2022 10:38:08 AM Ordering Provider: [facility] 08-13-2022 Note ORIGINAL HISTORY: Post arthroplasty COMPARISON: No FINDINGS: There is an arthroplasty in near anatomic alignment. There is no radiographic evidence of loosening or failure of hardware. There is gas in the joint space and overlying soft tissues, and there are skin kelsie. IMPRESSION: Left knee arthroplasty with immediate postoperative changes. Interpreted by: Wanda Godfrey MD Preliminary Report By: Wanda Godfrey MD Electronically signed By Wanda Godfrey MD Dictated Date: 08/13/2022 10:37:17 AM Prelim Date: 08/13/2022 10:38:08 AM Sign Date: 08/13/2022 10:38:08 AM Ordering Provider: [facility] 08-13-2022 Anesthesiology Consult note Patient: PRAVIN MELO Age: 52 years Sex: Female : 1970 Associated Diagnoses: None Author: BLADE MARK Assessment Postanesthesia assessment Vitals: Reviewed Results: Vital signs from flowsheet : Vital Signs(Date Range: 08/12/2022 0:00 EST - 08/13/2022 10:12 EST) . Mental status: at preoperative baseline. Respiratory function: lungs are clear to auscultation. Respiratory support: none. CV function: Normal rate. Cardiovascular support: none. Pain. Nausea status: denies nausea. Postoperative hydration status: within normal limits. Digitally Signed by BLADE MARK on 08/13/2022 10:12 AM [facility] 08-13-2022 Anesthesiology Consult note Patient: PRAVIN MELO Age: 52 years Sex: Female : 1970 Associated Diagnoses: None Author: BLADE MARK Health Status Allergies: Allergic Reactions (Selected) Moderate Grass- Unknown. Severity Not Documented Feathers- Unknown. Flu vaccines- No reactions were documented. Sulfa drug- Rash and syncope., Allergies (4) ActiveReaction GrassUnknown FeathersUnknown flu vaccinesNone Documented sulfa drugRash Current medications: (Selected) Inpatient Medications Ordered Betadine 10% topical solution: 17.5 mL, mL/hr, Topical (INT), PREOP pharm Bicitra: 30 mL, Oral, PREOP pharm Bolus LR 1000 mL: 1,000 mL, IV Bolus, PREOP pharm Cyklokapron IVPB: 1 gram(s), 10 mL, 330 mL/hr, IV Piggyback, AsDirected Cyklokapron IVPB: 1 gram(s), 10 mL, 330 mL/hr, IV Piggyback, AsDirected Decadron: 10 mg, 1 mL, IV Push, AsDirected Kefzol: 3 gram(s), 200 mL/hr, IV Piggyback, PREOP pharm LR 1000 mL: 20 mL/hr, Intravenous, Stop: 08/14/22 17:59:00 EST Naropin 25 mg + Toradol 15 mg + EPINEPHrine 1 mg/mL injectable solution 0.3 mg + morphine 2.5 mg...: 25 mg, 5 mL, mL/hr, Other, PREOP pharm Naropin 25 mg + Toradol 15 mg + EPINEPHrine 1 mg/mL injectable solution 0.3 mg + morphine 2.5 mg...: 25 mg, 5 mL, mL/hr, Other, PREOP pharm OxyCONTIN: 10 mg, 1 tab(s), Oral, PREOP pharm Pepcid IV: 20 mg, 2 mL, IV Push, PREOP pharm Prescriptions Prescribed Blood Glucose Test Strips: See Instructions, Use 1 strip twice daily as directed One Touch Ultra Test strips Dx: E11.9, 200 EA, 3 Refill(s) lisinopril 10 mg oral tablet: 10 mg, 1 tab(s), Oral, qDay, 90 tab(s), 3 Refill(s) Documented Medications Documented Cymbalta: 60 mg, Oral, qDay, unknown strength, 0 Refill(s) Farxiga 10 mg oral tablet: 10 mg, 1 tab(s), Oral, qDay, 30 tab(s), 0 Refill(s) Farxiga 10 mg oral tablet: 10 mg, 1 tab(s), Oral, qDay, 90 tab(s), 0 Refill(s) Januvia 100 mg oral tablet: 100 mg, 1 tab(s), Oral, qDay, 30 tab(s), 0 Refill(s) Vitamin D3: 5,000 unit(s), 1 cap(s), Oral, qDay, 0 Refill(s) Xeljanz XR 11 mg oral tablet, extended release: 11 mg, 1 tab(s), Oral, qDay, 30 tab(s), 0 Refill(s) hydroxychloroquine 200 mg oral tablet: 200 mg, 1 tab(s), Oral, BID, 0 Refill(s) levothyroxine 150 mcg (0.15 mg) oral tablet: 150 mcg, 1 tab(s), Oral, qDay, 90 tab(s), 0 Refill(s) meloxicam 15 mg oral tablet: 15 mg, 1 tab(s), Oral, qDay, PRN: pain, 0 Refill(s) traMADol 50 mg oral tablet: 50 mg, 1 tab(s), Oral, TID, TAKE 1 TABLET BY MOUTH THREE TIMES A DAY NEEDED turmeric 500 mg oral capsule: 500 mg, 1 cap(s), Oral, Daily, 0 Refill(s), Medications (12) Active Scheduled: (11) ceFAZolin 3 gram(s), IV Piggyback, PREOP pharm citric acid-sodium citrate 334 mg-500 mg/5 mL (30 mL) Farzana UD 30 mL, Oral, PREOP pharm dexamethasone 10 mg/mL (1mL) SDV 10 mg 1 mL, IV Push, AsDirected famotidine 20 mg/2 mL vial 20 mg 2 mL, IV Push, PREOP pharm Lactated Ringers Injection 1000 mL * Bolus * 1,000 mL, IV Bolus, PREOP pharm oxyCODONE 10 mg ER tablet 10 mg 1 tab(s), Oral, PREOP pharm povidone iodine topical 17.5 mL, Topical (INT), PREOP pharm ropivacaine 25 mg + ketorolac 15 mg + epinephrine 0.3 mg + morphine 2.5 mg 25 mg 5 mL, Other, PREOP pharm ropivacaine 25 mg + ketorolac 15 mg + epinephrine 0.3 mg + morphine 2.5 mg 25 mg 5 mL, Other, PREOP pharm tranexamic acid 1 gram(s) 10 mL, IV Piggyback, AsDirected tranexamic acid 1 gram(s) 10 mL, IV Piggyback, AsDirected Continuous: (1) Lactated Ringers 1000 mL 1,000 mL, Intravenous, 20 mL/hr PRN: (0) Problem list: Medical Morbid obesity with BMI of 45.0-49.9, adult / SNOMED CT 2466555036 / Confirmed Diabetes / SNOMED CT 603094091 / Confirmed Hypertension, essential / SNOMED CT 18762647 / Confirmed Fatigue / SNOMED CT 444674809 / Confirmed Hypothyroid / SNOMED CT 29608464 / Confirmed Obstructive sleep apnea / SNOMED CT 6652982018 / Confirmed Primary osteoarthritis of left knee / SNOMED CT 4910697589 / Confirmed Breast cancer screening by mammogram / SNOMED CT 191549287 / Confirmed Pre-op exam / SNOMED CT 522410100 / Confirmed Persistent insomnia / SNOMED CT 764628588 / Confirmed PCO (polycystic ovaries) / SNOMED CT 240177164 / Confirmed Restless legs syndrome / SNOMED CT 78620849 / Confirmed Arthritis, rheumatoid / SNOMED CT 156625244 / Confirmed Apnea, sleep / SNOMED CT 235060901 / Confirmed, Active Problems (16) Apnea, sleep Arthritis, rheumatoid Breast cancer screening by mammogram Diabetes Fatigue Fatty liver Hypertension, essential Hypothyroid Morbid obesity with BMI of 45.0-49.9, adult Obstructive sleep apnea Osteoarthritis PCO (polycystic ovaries) Persistent insomnia Pre-op exam Primary osteoarthritis of left knee Restless legs syndrome Histories Past Medical History: Active Hypothyroid (43676864) PCO (polycystic ovaries) (369921477) Arthritis, rheumatoid (670137950) Apnea, sleep (136524488) Diabetes (635730328) Resolved UTI symptoms (229142207): Resolved. Exposure to COVID-19 virus (9049678414): Resolved. Rash (816542064): Resolved. Discharge from left nipple (313778725): Resolved., HTN Family History: Dementia Mother (Tete Ospina) Diabetes mellitus Father (Paul Bhavesh, ) Hypertension Father (Paul Ospina, ) Arthritis Father (Paul Ospina, ) HTN - Hypertension Mother (Tete Opsina) Procedure history: Arthroplasty of knee using cement ([id number]) on 01/05/2019 at 48 Years. Comments: 01/05/2019 9:44 Lisa Gomez RN ROBOTIC ASSISTED RIGHT KNEE ARTHROPLASTY Mammogram ([id number]) on 08/14/2018 at 48 Years. Comments: 05/17/2019 9:04 Valarie Keller RN BI-RADS 0; [facility] recommended US Ultrasound ([id number]) on 08/14/2018 at 48 Years. Comments: 05/17/2019 9:05 Valarie Keller RN Normal; RT: 2 benign appearing right axillary lymph nodes, LT: 2benign appearing axillary lymph nodes, Category 2: Benign [facility] Colonoscopy (724650128) in 2008 at 39 Years. Comments: 05/17/2019 9:03 Valarie Keller RN within normal limits Thyroid (280412950) in 2006 at 37 Years. Comments: 08/02/2019 12:06 Nazia Graham COLD TYPE ARTIST partial removal section (14095134). Comments: 12/23/2018 11:55 Aminah Negro RN x2 History of partial thyroidectomy (1322951771). Arthroscopy of knee (990631397). Comments: 12/23/2018 11:56 Aminah Negro RN Bilateral Bilateral tubal ligation (280724145). Diagnostic laparoscopy of female pelvis (414214029). Endometrial ablation (178697027). Cholecystectomy (97083524). Nasal septoplasty (66695892). Ankle (4375330). 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 Physical Examination No qualifying data available Measurements from flowsheet : Measurements 08/13/2022 6:56 EST Body Mass Index In Error kg/m2 (In Error) Body Mass Index In Error kg/m2 (In Error) General: Alert and oriented. Airway: Normal temporomandibular joint mobility. Mallampati classification: II (soft palate, fauces, uvula visible). Head: Normocephalic. Dentition Evaluation: Intact. Neck: Supple. Respiratory: Lungs are clear to auscultation. Cardiovascular: Normal rate. Heart Sounds: Normal. Gastrointestinal: Soft. Musculoskeletal Normal range of motion. Integumentary: Intact. Neurologic: Alert. Review / Management Results review: No qualifying data available , Lab results 08/13/2022 6:56 EST Privacy Restrictions Requested None Body Mass Index In Error kg/m2 (In Error) Body Mass Index In Error kg/m2 (In Error) Sensory Deficits None Safety Brochure Information Reviewed Yes [facility] Video Viewed No Teaching Evaluation Verbalizes/Nonverbally indicates understanding Personal Devices, Patient Valuables None, Glasses (Modified) Admission Note-Nursing Same Day Patient History (Modified) 08/13/2022 6:44 EST SN - Preop - CTm Pt in SDS Room 08/13/2022 6:43 . Assessment and Plan [place] [employer] (ASA) physical status classification: Class III. Anesthetic Preoperative Plan Premedication: intravenous. Anesthetic technique: Spinal. Regional: Spinal, Adductor Canal Block. Postoperative pain management: Per surgeon. Risks discussed: nausea, vomiting, headache, sore throat, dental injury, hypotension, allergic reaction, serious complications. Informed consent: signed by patient. Digitally Signed by BLADE MARK on 08/13/2022 07:21 AM [facility] 03-07-2022 History of Presen t illness Narrative Pt up to restroom with assist - no difficulty and able to void, pt back to bed c/o nausea and dizziness at this time, will monitor at bedside PT unable to void via bedpan- will attempt restroom in a few minutes, pt VS stable, pt tolerating sips of cola, will monitor Pt received from OR via cart, spont. Resp. With LABOR CONTRACT ANALYST in attendance. Placed on monitor. Monitor alarms on in PACU documented in this encounter [facility] Work Phone: 03-07-2022 Hospital Discharg e DOMINICK Han - 03/07/2022 9:36 AM EDT Weight-bearing and post-operative activity Dr Amin wants you to be nonweight bearing on the Left lower extremity. You will continue this weight bearing restriction for the next 6 weeks If you have any problems maintaining this weight bearing status please call the office so that appropriate instructions can be given. Dr. Amin wants you to get up once per hour during the day to move around for a few minutes while following the above weight bearing orders. He does not want you to be in bed or on a couch all day not getting up. Getting up and moving once per hour helps to promote blood flow and is one way of trying to prevent a blood clot. Remember that when you get up it is normal for your foot/toes to change color and for you to feel fluid, pressure or throbbing (your heart beat) in your foot or toes. When you return to sitting down or laying down elevate your foot as it will lessen your swelling and be more comfortable. If you are having a hard time moving around during the day, let Dr Amin know. DOMINICK Potter - 03/07/2022 9:36 AM EDT Good nutrition is important when healing from an illness, injury, or surgery. Follow any nutrition recommendations given to you during your hospital stay. If you were given an oral nutrition supplement while in the hospital, continue to take this supplement at home. You can take it with meals, in-between meals, and/or before bedtime. These supplements can be purchased at most local grocery stores, pharmacies, and [employer]-stores. If you have any questions about your diet or nutrition, call the hospital and ask for the dietitian. Rocael Polo PA - 03/07/2022 Images from the original note were not included. SPLINT INSTRUCTIONS Keep your splint clean and dry. Do not put anything down in the splint to scratch. If your splint gets wet or starts to feel uncomfortable call Dr Amin immediately ([phone]). If you see any blood on the outside bandage reinforce it on the surface with gauze and an kelly bandage and call Dr Amin [phone]. Do not walk or stand on your splint. You can rest the splint on the floor but do not put weight on it. You should get up and move around once or twice an hour based on your comfort level. You are not to be at bed rest meaning you need to get up and move around in order to prevent blood clots. It is OK to wiggle your toes and you can contract your calf muscle inside the splint as well. When you put your foot down it is normal for the toes to turn a bluish or purple color. Once you elevate the foot for a few minutes a normal pink color should return underneath the toenails. If the color does not change within 10 minutes after elevating call Dr. Amin. ELEVATION Keep your foot/ankle elevated for comfort. Elevating your foot/ankle is the best way to control your swelling and pain. Elevation means keeping the toes at the level of your nose. If your leg is not elevated to that height then it is not truly elevated. Correct elevation height Incorrect elevation height MEDICATIONS You have been given a prescription for a narcotic medication that is intended for postoperative pain control. This medication should be used judiciously to try and minimize your discomfort after surgery. The medication will not relieve all of your pain and you should not take large amounts of the medication in an attempt to be pain free. Please understand that narcotic medications can be addictive and they are intended to decrease but not eliminate your pain and should therefore be used in moderation. If you have questions regarding taking the narcotic medication and other medications that you are currently on please call the office. You cannot drive or operate machinery while taking the narcotic medication. You should not drink alcohol or use recreational drugs while taking the narcotic medication.[facility] restricts the amount of pain pills that can be legally prescribed and no more than one prescription in a week can be given. If you require a refill of the pain medication it requires that someone come to the office in person as it cannot be called in to the pharmacy or E-prescribed. Please understand that there is a limit to the total amount of pain medication that can be prescribed so make every effort to take it only when needed. Unless otherwise instructed by Dr Amin you can take an over the counter anti-inflammatory to help with your pain as well. This includes but is not limited to Ibuprofen, Advil, Motrin, Alleve, etc. A prescription for baby aspirin was sent to your pharmacy and Dr. Amin wants you to take one tablet once a day. If you have any issues with the medication call Dr. Amin. WEIGHTBEARING INSTRUCTIONS Dr Amin wants you to be nonweight bearing on the Left lower extremity. You will continue this weight bearing restriction for the next 6 weeks If you have any problems maintaining this weight bearing status please call the office so that appropriate instructions can be given. FREQUENTLY ASKED QUESTIONS FREQUENTLY ASKED QUESTIONS If I am supposed to be non-weight bearing on the operative foot/ankle can I still rest the foot on the ground when I am sitting? Yes, it is OK to rest your operative foot on the ground when you are sitting. Is it normal to feel a chavez of fluid or pressure in my foot/ankle when I put it down? Yes, after most foot, ankle or leg surgeries it is very common to feel immediate swelling or pressure in your foot, ankle and leg. Is it OK to put ice on my foot/ankle to help with the swelling and pain? After foot/ankle surgery elevating the foot/ankle is much better at relieving pain and swelling than ice. In many cases you bandage prevents the cold from getting to your skin. At your 2 week visit when your bandage is removed, icing the foot/ankle works much better and you can start it then. If I received a nerve block before surgery, how long will it last? A single shot nerve block can last anywhere from 8 hours to 36 hours on average, some patients' single shot blocks stop sooner and some can go a little longer. A catheter block (pain ball) lasts longer when you have it dialed down and it runs out faster if you have it dialed up. For most patients it lasts for a day and a half to 3 days. Can I shower or bathe after surgery? Yes, you can shower or bathe after surgery but you have to put a plastic bag over your splint/dressing to keep the splint/bandage absolutely dry. The splint/bandage is like a sponge and any water that gets in can damage your skin or cause your incision/incisions to open up and get infected. If your splint/bandage gets water in it, call Dr. Amin's office ([phone]) immediately and you will be instructed which office can see your the quickest to change your splint/bandage. documented in this encounter [facility] Work Phone: 02-14-2022 Hospital Discharg e Mag Dawson RN - 02/14/2022 PLEASE BE AWARE THAT VISITORS UNDER THE AGE OF 18 AND FOOD/DRINKS ARE NO LONGER PERMITTED IN THE SAME DAY SURGERY DEPARTMENT. IF YOU USE A CPAP MACHINE OR RESCUE INHALER AT HOME PLEASE BRING THESE ITEMS WITH YOU THE DAY OF SURGERY. MEDICATION INSTRUCTIONS PRIOR TO SURGERY PLEASE BRING PROVIDED LIST BACK WITH YOU THE DAY OF SURGERY WITH DATE/TIME LAST DOSE OF MEDICATIONS TAKEN. Hold meloxicam 3 days prior to surgery Hold all vitamin supplements 5 days prior to surgery Hold ibuprofen for 24 hours prior to surery may take tylenol for pain if needed Hold glyxambi the am of surgery Please take levothyroxine the am of surgery documented in this encounter [facility] Work Phone: 12-11-2021 Evaluation + Plan note Future Scheduled TestsXR Foot Minimum 3 Views Left 12/11/21XR Ankle Minimum 3 Views Left 12/11/21 [facility] 12-01-2021 Hospital Discharg e instructions Patient Education 12/01/2021 12:22:07 Animal Bite (General) Animal Bite (General) An animal bite can cause a wound deep enough to break the skin. In such cases, the wound is cleaned and then sometimes closed. If the wound is closed, it may not be closed completely. This is so that fluid can drain and prevent the wound from becoming infected. In addition to wound care, a tetanus shot may be given, if needed. Home care Care for the wound as directed. If a dressing was applied to the wound, be sure to change it as directed. Wash your hands well with soap and warm water before and after caring for the wound. This helps lower the risk of infection. If the wound bleeds, place a clean, soft cloth on the wound. Then firmly apply pressure until the bleeding stops. This may take up to 5 minutes. Do not release the pressure and look at the wound during this time. Most skin wounds heal within 10 days. But an infection can occur even with proper treatment. So be sure to watch the wound for signs of infection (see below). Check the wound as often as directed by your healthcare provider. Antibiotics may be prescribed. These help prevent or treat infection. If you re given antibiotics, take them as directed. Also be sure to complete the medicines. Rabies prevention Rabies is a virus that can be carried in certain animals. These can include domestic animals such as dogs and cats. Wild animals such as skunks, raccoons, foxes, and bats can also carry rabies. Pets fully vaccinated against rabies (2 shots) are at very low risk of infection. But because human rabies is almost always fatal, any biting pet should be confined for 10 days as an extra precaution. In general, if there is a risk for rabies, the following steps may need to be taken: If someone s pet dog or cat has bitten you, it should be kept in a secure area for the next 10 days to watch for signs of illness. (If the pet pickling tank operator won t allow this, contact your local animal control center.) If the dog or cat becomes ill or dies during that time, contact your local animal control center at once so the animal may be tested for rabies. If the pet stays healthy for the next 10 days, there is no danger of rabies in the animal or you. If a stray pet bit you, contact your local animal control center. They can give information on capture, quarantine, and animal rabies testing. If you can t find the animal that bit you in the next 2 days, and if rabies exists in your region, you may need to receive the rabies vaccine series. Call your healthcare provider right away. Or return to the emergency department promptly. All animal bites should be reported to the local animal control center. If you were not given a form to fill out, you can report this yourself. Follow-up care Follow up with your healthcare provider, or as directed. When to seek medical advice Call your healthcare provider right away if any of these occur: Signs of infection: oSpreading redness or warmth from the wound oIncreased pain or swelling oFever of 100.4 F (38 C) or higher, or as directed by your healthcare provider oColored fluid or pus draining from the wound Signs of rabies infection: oHeadache oConfusion oStrange behavior oIncreased salivating and drooling oSeizure Decreased ability to move any body part near the bite area Bleeding that can't be stopped after 5 minutes of firm pressure [id number] [employer]. [address] [place] [address]. All rights reserved. This information is not intended as a substitute for professional medical care. Always follow your healthcare professional's instructions. 12/01/2021 12:22:06 Cat Bite Cat Bite A cat bite can cause a wound deep enough to break the skin. In such cases, the wound is cleaned and then sometimes closed. If the wound is closed it is usually not closed completely. This is so that fluid can drain if the wound becomes infected. Often the wound is left open to heal. In addition to wound care, a tetanus shot may be given, if needed. Home care Wash your hands well with soap and warm water before and after caring for the wound. This helps lower the risk of infection. Care for the wound as directed. If a dressing was applied to the wound, be sure to change it as directed. If the wound bleeds, place a clean, soft cloth on the wound. Then firmly apply pressure until the bleeding stops. This may take up to 5 minutes. Don't release the pressure and look at the wound during this time. Always get medical attention for cat bites on the hand. They are highly likely to become infected. Most wounds heal within 10 days. But an infection can occur even with proper treatment. So be sure to check the wound daily for signs of infection (see below). Antibiotics may be prescribed. These help prevent or treat infection. If you re given antibiotics, take them as directed. Also be sure to complete the medicines. Rabies prevention Rabies is a virus that can be carried in certain animals. These can include domestic animals such as cats and dogs. Pets fully vaccinated against rabies (2 shots) are at very low risk of infection. But because human rabies is almost always fatal, any biting pet should be confined for 10 days as an extra precaution. In general, if there is a risk for rabies, the following steps may need to be taken: If someone s pet cat has bitten you, it should be kept in a secure area for the next 10 days to watch for signs of illness. If the pet pickling tank operator won t allow this, contact your local animal control center. If the cat becomes ill or dies during that time, contact your local animal control center at once so the animal may be tested for rabies. If the cat stays healthy for the next 10 days, there is no danger of rabies in the animal or you. If a stray cat bit you, contact your local animal control center. They can give information on capture, quarantine, and animal rabies testing. If you can t find the animal that bit you in the next 2 days, and if rabies exists in your area, you may need to receive the rabies vaccine series. Call your healthcare provider right away. Or return to the emergency department promptly. All animal bites should be reported to the local animal control center. If you were not given a form to fill out, you can report this yourself. Follow-up care Follow up with your healthcare provider, or as directed. When to seek medical advice Call your healthcare provider right away if any of these occur: Signs of infection: oSpreading redness or warmth from the wound oIncreased pain or swelling oFever of 100.4 F (38 C) or higher, or as directed by your healthcare provider oColored fluid or pus draining from the wound oEnlarged lymph nodes above the area that was bitten, such as lymph nodes in the armpit if you were bitten on the hand or arm. This may be a sign of cat-scratch disease (cat-scratch fever). Signs of rabies infection: oHeadache oConfusion oStrange behavior oIncreased salivating or drooling oSeizure Decreased ability to move any body part near the bite area Bleeding that can't be stopped after 5 minutes of firm pressure [id number] [employer]. [address] [place] [address]. All rights reserved. This information is not intended as a substitute for professional medical care. Always follow your healthcare professional's instructions. Follow Up Care 12/01/2021 12:03:40 With:SERGIO SILVA DO Address: [phone] When:2-4 days With:Go to emergency room if symptoms worsen Address:Unknown When:2-4 days [facility] 10-06-2021 Note . MICRO - Microbiology PROCEDURE: Urine Culture [*1] SOURCE: Urine, Clean Catch BODY SITE: COLLECTED DATE/TIME: 10/04/2021 13:17 EST RECEIVED DATE/TIME: 10/04/2021 20:06 EST START DATE/TIME: 10/04/2021 20:06 EST FREE TEXT SOURCE: FINAL REPORTS Final Report [] Verified Date/Time/Personnel: 10/06/2021 08:10 EST <10,000 cfu/ml. No Significant growth. Sensitivity not indicated. PRELIMINARY REPORTS Preliminary Report [] Verified Date/Time/Personnel: 10/05/2021 10:00 EST No growth to date Performing Locations *1: This test was performed at: [facility], [address] [place] [address], [phone] , [facility] ([place]) 04-09-2021 Evaluation + Plan note Future Scheduled TestsXR Wrist Minimum 3 Views Left 04/09/21 [facility] Evaluation + Plan note Future Appointments Appointment Date:07/24/2021 08:00:00 AM Scheduled Provider:SERGIO SILVA DO Location:[facility] Appointment Type:PC OV Future Scheduled TestsXR Wrist Minimum 3 Views Left 04/09/21 [facility] Evaluation + Plan note Future Appointments Appointment Date:08/05/2022 08:30:00 AM Scheduled Provider:SERGIO SILVA DO Location:[facility] Appointment Type:PC OV Pre Op Future Scheduled TestsXR Foot Minimum 3 Views Left 12/11/21XR Ankle Minimum 3 Views Left 12/11/21 [facility] documented in this encounter [facility] Work Phone: Evaluation note* Diagnosis Arthritis of foot Unspecified arthropathy, ankle and foot documented in this encounter [facility] Work Phone: Evaluation note* Diagnosis Traumatic rupture of left anterior tibial tendon, subsequent encounter documented in this encounter [facility] Work Phone: Evaluation note* Diagnosis Arthritis of foot- Primary [facility]* 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 Rheumatoid arthritis of left foot, unspecified whether rheumatoid factor present (HCC) [facility]* 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 Rheumatoid arthritis of left foot, unspecified whether rheumatoid factor present (HCC) documented in [facility] encounter [facility]* 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 [facility]* Diagnosis Arthritis of foot- Primary 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 documented in this [facility]* 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 [facility]* 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 [facility]* 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 documented in this encounter [facility]* Diagnosis Type 2 diabetes mellitus with hyperglycemia (HCC)- Primary [facility] Narrative No data available for this section [facility] Hospital Discharge instructions No data available for this section [facility] Reason for referral (narrative)* Consultation (Routine) - Pending Review Specialty Diagnoses / Procedures Referred By Dora whitley Referred To Contact Orthotics Diagnoses Rheumatoid arthritis of left foot, unspecified whether rheumatoid factor present (HCC) Simone Amin MD [address] [facility] [address] [place] [id number] Referral ID Status Reason Start Date Expiration Date Visits Requested Visits Authorized [id number] Pending Review Specialty Services Required 04/16/2023 04/15/2024 1 1 [employer] Summary Purpose Family History No Family History Records FoundNo Family History Records FoundNo Family History Records FoundNo Family History Records Found Advance Directives No Advanced Directives Records FoundLatest Code Status on File Code Status Date Activated Date Inactivated Comments Full Code 03/07/2022 7:41 AM Latest Code Status on File Code Status Date Activated Date Inactivated Comments Full Code 03/07/2022 7:41 AM 03/07/2022 5:10 PM Documents on File Type Date Recorded 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 DATE CREATED AUTHOR AUTHOR'S ORGANIZ ATION 09/03/2022 [employer] ([place]) DATE CREATED AUTHOR AUTHOR'S ORGANIZ ATION 09/05/2023 [employer] [facility] Care Teams (unrecognized sec tion and content) Administrative Professional Relationship Specialty Start Date End Date Sergio Silva DO [address] [place] [address] [place] [address] PCP - General Family Medicine 09/08/21 Administrative Professional Relationship Specialty Start Date End Date Sergio Silva DO [address] [place] [address] PCP - General Family Medicine 09/08/21 Administrative Professional Relationship Specialty Start Date End Date Sergio Silva DO [address] [place] [address] PCP - General Family Medicine 09/08/21 Administrative Professional Relationship Specialty Start Date End Date Sergio Silva DO [address] [place] [address] PCP - General Family Medicine 09/08/21 Administrative Professional Relationship Specialty Start Date End Date Sergio Silva DO [address] [place] [address] PCP - General 09/08/21 Administrative Professional Relationship Specialty Start Date End Date Sergio Silva DO [address] [place] [address] PCP - General 09/08/21 Administrative Professional Relationship Specialty Start Date End Date Sergio Silva DO [address] [place] [address] PCP - General 09/08/21 Administrative Professional Relationship Specialty Start Date End Date Sergio Silva DO [address] [place] [address] PCP - General 09/08/21 Administrative Professional Relationship Specialty Start Date End Date Sergio Silva DO [address] [place] [address] PCP - General 09/08/21 Administrative Professional Relationship Specialty Start Date End Date Sergio Silva DO [address] [place] [id number] PCP - General 09/08/21 Administrative Professional Relationship Specialty Start Date End Date Sergio Silva DO [address] [place] [id number] PCP - General 09/08/21 Administrative Professional Relationship Specialty Start Date End Date Sergio Silva DO [address] [place] [address] PCP - General 09/08/21 Administrative Professional Relationship Specialty Start Date End Date Sergio Silva DO [address] [place] [address] PCP - General 09/08/21 Administrative Professional Relationship Specialty Start Date End Date Sergio Silva DO [address] [place] [address] PCP - General 09/08/21 Administrative Professional Relationship Specialty Start Date End Date Sergio Silva DO [address] [place] [address] PCP - General 09/08/21 Ordered Prescriptions (unrec ognized section and content) Scheduled Active and Recently Administ ered Medications (unrecognized section and content) Continuous Medication Order 03/05/2022 03/06/2022 03/07/2022 lactated ringers infusion IntraVENous, at 50 mL/hr, CONTINUOUS, Starting on Sophai 03/07/22 at 0800, Upon admission to sameday - please start iv if patient does not have iv access. Use 500ml NS for patients on dialysis., Pre-op (day of surgery) 0800 (Due) lactated ringers infusion IntraVENous, at 50 mL/hr, CONTINUOUS, Starting on Sophia 03/07/22 at 0915, PACU only 0915 (Due) PRN Medication Order 03/05/2022 03/06/2022 03/07/2022 0.9 % sodium chloride bolus 500 mL (3.99 mL/kg), IntraVENous, at 1,000 mL/hr, Administer over 0.5 Hours, PRN, Anti-nausea, Starting on Sophia 03/07/22 at 0850, PACU only 0.9 % sodium chloride infusion IntraVENous, at 5-250 mL/hr, PRN, if patient receiving piggyback infusions and maintenance fluids are not ordered OR KVO fluids to protect IV site / prevent frequent line interruptions/ long duration, Starting on Sophia 03/07/22 at 0741, For piggyback infusion, administer at same rate as piggyback for a total of 25 mL. Enter 25 mL into dose field and piggyback rate into rate field of order. If piggyback is infusing at a rate less than 100 mL/hr, enter 25 mL into dose field and 100 mL/hr into rate field of order. For KVO fluids, enter rate of 20 mL/hr or less into rate field of order., Pre-op (day of surgery) ALPRAZolam (NIRAVAM) dissolvable tablet 0.25 mg 0.25 mg, Oral, PRN, Starting on Sophia 03/07/22 at 0741, Until Discontinued, Anxiety, Pre-op (day of surgery) diphenhydrAMINE (BENADRYL) injection 12.5 mg 12.5 mg, IntraVENous, ONCE PRN, 1 dose, Starting on Sophia 03/07/22 at 0850, Until Sophia 03/07/22 at 2359, Itching, PACU only fentaNYL (SUBLIMAZE) injection 100 mcg 100 mcg, IntraVENous, PRN, Starting on Sophia 03/07/22 at 0850, Until Discontinued, administration per anesthesiologist direction. Up to 100 micrograms., Pull 2 ml vial of Fentanyl and draw up in PACU for anesthesia block placement with administration per anesthesiologist direction. Up to 100 micrograms., PACU only 0901 (Given - Provid er: Sariah Pineda RN) hydrALAZINE (APRESOLINE) injection 5 mg(Linked Group 1) 5 mg, IntraVENous, EVERY 10 MIN PRN, 2 doses, Starting on Sophia 03/07/22 at 0850, Until Discontinued, High Blood Pressure, for SBP greater than 160 mmHg for 2 consecutive measurements taken from different sites, PRN for SBP > 160 for 2 consecutive measurements, and if one of the following conditions is met: 1) If IV labetolol is ineffective. 2) If HR is under 60. 3) If patient has heart block, COPD or asthma. If both labetalol and hydralazine ineffective, notify anesthesiologist. for use Sameday and, PACU only HYDROmorphone (DILAUDID) injection 0.25 mg HYDROmorphone (DILAUDID) 1.5mg IV is equivalent to morphine 10mg IV, 0.25 mg, IntraVENous, EVERY 5 MIN PRN, 4 doses, Starting on Sophia 03/07/22 at 0850, Until Discontinued, Pain Moderate (4-6), Phase I and Phase II- Initial therapy for moderate pain (4-6). Restricted to a 90 minute time frame starting when the patient can verbally state their pain score. If oral meds are utilized, do not return to initial therapy medications. SDS and, PACU only 1403 (Given - Provid er: Sariah Pineda RN) HYDROmorphone (DILAUDID) injection 0.5 mg HYDROmorphone (DILAUDID) 1.5mg IV is equivalent to morphine 10mg IV, 0.5 mg, IntraVENous, EVERY 5 MIN PRN, 4 doses, Starting on Sophia 6/ at 0850, Until Discontinued, Pain Severe (7-10), Phase I or Phase II- Initial therapy for severe pain (7-10). Restricted to a 90 minute time frame starting when the patient can verbally state their pain score. If oral meds are utilized, do not return to initial therapy medications. SDS and, PACU only 1334 (Given - Provid er: Sariah Pineda RN) labetalol (NORMODYNE;TRANDATE) injection 5 mg(Linked Group 1) 5 mg, IntraVENous, EVERY 10 MIN PRN, 2 doses, Starting on Sophia 03/07/22 at 0850, Until Discontinued, High Blood Pressure, for SBP greater than 160 mmHg for 2 consecutive measurements taken from different sites., PRN for SBP >160 for 2 consecutive measurements, if HR is 60 or greater. If beta melinda is contraindicated (HR less than 60, heart block, COPD or asthma) use hydralazine IV order. for use Sameday and, PACU only lidocaine PF 1 % injection 1 mL 1 mL, IntraDERmal, ONCE PRN, 1 dose, Starting on Sophia 03/07/22 at 0741, Until Sophia 03/07/22 at 2359, IV start, Pre-op (day of surgery) meperidine (DEMEROL) injection 12.5 mg 12.5 mg, IntraVENous, EVERY 5 MIN PRN, 4 doses, Starting on Sophia 03/07/22 at 0850, Until Discontinued, Shivering, , May give every 5 minutes to max of 50mg., PACU only midazolam (VERSED) injection 2 mg 2 mg, IntraVENous, PRN, Starting on Sophia 03/07/22 at 0850, Until Discontinued, Anxiety, administration per anesthesiologist direction. Up to two mg., Pull 2 mg vial of midazolam draw up in PACU for anesthesia block placement with administration per anesthesiologist direction. Up to two mg., PACU only 09 (Given - Provid er: Sariah Pineda RN) ondansetron (ZOFRAN) injection 4 mg (COMPLETED) 4 mg, IntraVENous, ONCE PRN, 1 dose, Starting on Sophia 03/07/22 at 0850, Until Sophia 03/07/22 at 2359, Nausea, Initial antiemetic therapy., PACU only 133 (Given - Provid er: Sariah Pineda RN) oxyCODONE (ROXICODONE) immediate release tablet 5 mg (COMPLETED) 5 mg, Oral, PRN, 1 dose, Starting on Sophia 03/07/22 at 0850, Until Sophia 03/07/22 at 2359, Pain Moderate (4-6), PHASE II, PACU only 1433 (Given - Provid er: Sariah Pineda RN) sodium chloride flush 0.9 % injection 5-40 mL 5-40 mL, IntraVENous, PRN, Starting on Sophia 03/07/22 at 0741, Until Discontinued, Line Care, After every IV line use, For Line Patency: Peripheral IV = 5 mL; Midline or Central Line = 10 mL/lumen. If following IV push medication, administer flush at same rate as the IV push. Flush volume is determined by type of infusion therapy being given. For non-viscous solutions use: Peripheral IV = 5 mL Midline or Central Line = 10 mL/lumen For viscous solutions (i.e. blood components, parenteral nutrition, contrast media, or after obtaining blood sample) use: Peripheral IV = 10 mL Midline or Central Line = 20 mL/lumen, Pre-op (day of surgery) sodium chloride flush 0.9 % injection 5-40 mL 5-40 mL, IntraVENous, PRN, Starting on Sophia 03/07/22 at 0850, Until Discontinued, Line Care, After every IV line use, For Line Patency: Peripheral IV = 5 mL; Midline or Central Line = 10 mL/lumen. If following IV push medication, administer flush at same rate as the IV push. Flush volume is determined by type of infusion therapy being given. For non-viscous solutions use: Peripheral IV = 5 mL Midline or Central Line = 10 mL/lumen For viscous solutions (i.e. blood components, parenteral nutrition, contrast media, or after obtaining blood sample) use: Peripheral IV = 10 mL Midline or Central Line = 20 mL/lumen, PACU only Linked Groups Order Group 1: labetalol (NORMODYNE;TRANDATE) injection 5 mgJump to med 5 mg, IntraVENous, EVERY 10 MIN PRN, 2 doses, Starting on Sophia 03/07/22 at 0850, Until Discontinued, High Blood Pressure, for SBP greater than 160 mmHg for 2 consecutive measurements taken from different sites.
PRN for SBP >160 for 2 consecutive measurements, if HR is 60 or greater. If beta melinda is contraindicated (HR less than 60, heart block, COPD or asthma) use hydralazine IV order. for use Sameday and
PACU only Or hydrALAZINE (APRESOLINE) injection 5 mgJump to med 5 mg, IntraVENous, EVERY 10 MIN PRN, 2 doses, Starting on Sophia 03/07/22 at 0850, Until Discontinued, High Blood Pressure, for SBP greater than 160 mmHg for 2 consecutive measurements taken from different sites
PRN for SBP > 160 for 2 consecutive measurements, and if one of the following conditions is met: 1) If IV labetolol is ineffective. 2) If HR is under 60. 3) If patient has heart block, COPD or asthma. If both labetalol and hydralazine ineffective, notify anesthesiologist. for use Sameday and
PACU only Scheduled Medication Order 06/10/2023 06/11/2023 06/12/2023 acetaminophen (Tylenol) tablet 1,000 mg (COMPLETED) 1,000 mg, Oral, Once, On Sophia 06/12/23 at 0930, For 1 dose, Preprocedure, Maximum dose of acetaminophen is 4000 mg from all sources in 24 hours. Do not administer if patient has taken tylenol <4 hours earlier. Do not give if contraindicated ie. patient has active liver disease or cirrhosis. 0943 (Given - Provid er: Vasquez Ramirez RN) ceFAZolin (Ancef) 2,000 mg in sodium chloride 0.9 % 100 mL IVPB (COMPLETED) 2,000 mg, IntraVENous, at 200 mL/hr, Administer over 30 Minutes, Once, On Sophia 06/12/23 at 0930, For 1 dose, Preprocedure, Administer within 1 hour prior to incision. Recommend to repeat in 3-4 hours after initial dose if still intra-op. Mini-Bag Plus bag, Suspected Indication (Select all that apply): Surgical Prophylaxis 1132 (New Bag - Prov ider: Eli Fraga CRNA)1344 (Anesthesia Volume Adjustment - Provider: Eli Fraga CRNA) nkaZZEHThmlbz-qbdrljsmpsw-dkvucop rine (TAP) syringe 60 mL (COMPLETED) 60 mL, Injection, Once, On Sophia 06/12/23 at 1045, For 1 dose, Preprocedure, Popliteal not TAP 1055 (Given - Provid er: Nicole Jay RN - Comment: given by other) famotidine (Pepcid) tablet 20 mg (COMPLETED) 20 mg, Oral, Once, On Sophia 06/12/23 at 0930, For 1 dose, Preprocedure 0943 (Given - Provid er: Vasquez Ramirez RN) fentaNYL (Sublimaze) injection 100 mcg (COMPLETED) 100 mcg, IntraVENous, Once, On Sophia 06/12/23 at 1045, For 1 dose, Preprocedure, Pre-regional medication 1049 (Given - Provid er: Nicole Jay RN) lidocaine PF (Xylocaine) 1 % injection 5 mL (COMPLETED) 5 mL, Injection, Once, On Sophia 06/12/23 at 1045, For 1 dose, Preprocedure 1050 (Given - Provid er: Nicole Jay RN - Comment: given by other) ropivacaine (Naropin) 5 MG/ML injection 10 mL (COMPLETED) 10 mL, Injection, Once, On Sophia 06/12/23 at 1045, For 1 dose, Preprocedure 1055 (Given - Provid er: Nicole Jay RN - Comment: given by other) sodium chloride 0.9 % bolus 500 mL 500 mL, IntraVENous, at 1,000 mL/hr, Administer over 0.5 Hours, Once, On Sophia 06/12/23 at 1400, For 1 dose, Recovery (only), Indications: Anti-nausea 1400 (Canceled Entry - Provider: Automatic Discharge Provider - Comment: Automatically canceled at discontinue of medication order) sodium chloride 0.9% (NS) flush 10 mL 10 mL, IntraVENous, Every 12 hours scheduled (2 times per day), First dose on Sophia 06/12/23 at 0930, Preprocedure 0930 (Canceled Entry - Provider: Automatic Discharge Provider - Comment: Automatically canceled at discontinue of medication order) sodium chloride 0.9% (NS) flush 5-40 mL 5-40 mL, IntraVENous, Every 12 hours, First dose on Sophia 06/12/23 at 0930, Preprocedure, For Line Patency: Peripheral IV = 5 mL; Midline or Central Line = 10 mL/lumen. If following IV push medication, administer flush at same rate as the IV push. Flush volume is determined by type of infusion therapy being given. For non-viscous solutions use: Peripheral IV = 5 mL Midline or Central Line = 10 mL/lumen For viscous solutions (i.e. blood components, parenteral nutrition, contrast media, or after obtaining blood sample) use: Peripheral IV = 10 mL Midline or Central Line = 20 mL/lumen 0930 (Canceled Entry - Provider: Automatic Discharge Provider - Comment: Automatically canceled at discontinue of medication order) Continuous Medication Order 06/10/2023 06/11/2023 06/12/2023 lactated Ringer's infusion 50 mL/hr, IntraVENous, Continuous, Starting on Sophia 06/12/23 at 0930, Preprocedure, Upon admission to sameday - please start iv if patient does not have iv access. Use 500ml NS for patients on dialysis. 0930 (Canceled Entry - Provider: Automatic Discharge Provider - Comment: Automatically canceled at discontinue of medication order) lactated Ringer's infusion 50 mL/hr, IntraVENous, Continuous, Starting on Sophia 06/12/23 at 0930, Preprocedure, Upon admission to sameday - please start iv if patient does not have iv access. Use 500ml NS for patients on dialysis. 0950 (New Bag - Prov ider: Vasquez Ramirez RN)1132 (Continued by Anesthesia - Provider: Eli Fraga CRNA)1344 (Anesthesia Volume Adjustment - Provider: Eli Fraga CRNA) lactated ringers infusion 125 mL/hr, IntraVENous, Continuous, Starting on Sophia 06/12/23 at 1400, Recovery (only) 1400 (Canceled Entry - Provider: Automatic Discharge Provider - Comment: Automatically canceled at discontinue of medication order) PRN Medication Order 06/10/2023 06/11/2023 06/12/2023 ALPRAZolam (Xanax) disintegrating tablet 0.25 mg 0.25 mg, Oral, PRN, anxiety, Starting on Sophia 06/12/23 at 0915, For 1 dose, Preprocedure, Using dry hands, place tablet on top of tongue and allow to disintegrate. Administration with water is not necessary. diphenhydrAMINE (BENADryl) injection 12.5 mg 12.5 mg, IntraVENous, Once PRN, itching, Starting on Sophia 06/12/23 at 1352, For 1 dose, Recovery (only) hydrALAZINE (Apresoline) injection 5 mg(Linked Group 1) 5 mg, IntraVENous, Every 15 min PRN, high blood pressure, for SBP greater than 160 mmHg for 2 consecutive measurements taken from different sites, Starting on Sophia 06/12/23 at 1352, For 2 doses, Recovery (only), PRN for SBP > 160 for 2 consecutive measurements, and if one of the following conditions is met: 1) If IV labetolol is ineffective. 2) If HR is under 60. 3) If patient has heart block, COPD or asthma. If both labetalol and hydralazine ineffective, notify anesthesia provider. HYDROmorphone (Dilaudid) injection 0.25 mg 0.25 mg, IntraVENous, Every 5 min PRN, moderate pain (4-6), Starting on Sophia 06/12/23 at 1352, For 4 doses, Recovery (only), Phase I and Phase II- Initial therapy for moderate pain (4-6). Restricted to a 90 minute time frame starting when the patient can verbally state their pain score. If after 2 doses the pain score does not decrease by more than one point, then call the provider. If oral meds are utilized, do not return to initial therapy medications. HYDROmorphone (Dilaudid) injection 0.5 mg 0.5 mg, IntraVENous, Every 5 min PRN, severe pain (7-10), Starting on Sophia 06/12/23 at 1352, For 4 doses, Recovery (only), Phase I and Phase II- Initial therapy for moderate pain (4-6). Restricted to a 90 minute time frame starting when the patient can verbally state their pain score. If after 2 doses the pain score does not decrease by more than one point, then call the provider. If oral meds are utilized, do not return to initial therapy medications. labetalol (Normodyne,Trandate) injection 5 mg(Linked Group 1) 5 mg, IntraVENous, Every 10 min PRN, high blood pressure, for SBP greater than 160 mmHg for 2 consecutive measurements taken from different sites., Starting on Sophia 06/12/23 at 1352, For 2 doses, Recovery (only), PRN for SBP >160 for 2 consecutive measurements, if HR is 60 or greater. If beta melinda is contraindicated (HR less than 60, heart block, COPD or asthma) use hydralazine IV order. LORazepam (Ativan) injection 0.5 mg 0.5 mg, IntraVENous, Once PRN, for anxiety or muscle spasm., Starting on Sophia 06/12/23 at 1352, For 1 dose, Recovery (only), For IV doses dilute dose with 1ml NS. meperidine (Demerol) injection 12.5 mg 12.5 mg, IntraVENous, Every 5 min PRN, shivering, Starting on Sophia 06/12/23 at 1352, For 4 doses, Recovery (only), May give every 5 minutes to max of 50mg. metoclopramide (Reglan) injection 5 mg 5 mg, IntraVENous, Once PRN, nausea, Starting on Sophia 06/12/23 at 1352, For 1 dose, Recovery (only), Secondary antiemetic therapy. Notify anesthesia provider before administration. midazolam (Versed) injection 2 mg 2 mg, IntraVENous, PRN, anxiety, administration per anesthesiologist direction. Up to two mg., Starting on Sophia 06/12/23 at 1032, Preprocedure, Pull 2 mg vial of midazolam draw up for anesthesia block placement with administration per anesthesiologist direction. 1049 (Given - Provid er: Nicole Jay, RN) ondansetron (Zofran) injection 4 mg 4 mg, IntraVENous, Once PRN, nausea, Starting on Sophia 06/12/23 at 1352, For 1 dose, Recovery (only), Initial antiemetic therapy. oxyCODONE (Roxicodone) immediate release tablet 10 mg(Linked Group 2) 10 mg, Oral, PRN, severe pain (7-10), Starting on Sophia 06/12/23 at 1352, For 1 dose, Recovery (only), PHASE II oxyCODONE (Roxicodone) immediate release tablet 5 mg(Linked Group 2) 5 mg, Oral, PRN, moderate pain (4-6), Starting on Sophia 06/12/23 at 1352, For 1 dose, Recovery (only), PHASE II sodium chloride 0.9 % infusion 5-250 mL/hr, IntraVENous, PRN, if patient receiving piggyback infusions and maintenance fluids are not ordered OR KVO fluids to protect IV site / prevent frequent line interruptions/ long duration, Starting on Sophia 06/12/23 at 0915, Preprocedure, For piggyback infusion, administer at same rate as piggyback for a total of 25 mL. Enter 25 mL into dose field and piggyback rate into rate field of order. If piggyback is infusing at a rate less than 100 mL/hr, enter 25 mL into dose field and 100 mL/hr into rate field of order. For KVO fluids, enter rate of 20 mL/hr or less into rate field of order. sodium chloride 0.9 % infusion 5-250 mL/hr, IntraVENous, PRN, if patient receiving piggyback infusions and maintenance fluids are not ordered OR KVO fluids to protect IV site / prevent frequent line interruptions / long duration, Starting on Sophia 06/12/23 at 0915, Preprocedure, For piggyback infusion, administer at same rate as piggyback for a total of 25 mL. Enter 25 mL into dose field and piggyback rate into rate field of order. If piggyback is infusing at a rate less than 100 mL/hr, enter 25 mL into dose field and 100 mL/hr into rate field of order. For KVO fluids, enter rate of 20 mL/hr or less into rate field of order. sodium chloride 0.9 % irrigation solution (CANCELED) As needed, Starting on Sophia 06/12/23 at 1305, Intraprocedure 1305 (Given - Provid er: Simone Amin MD) sodium chloride 0.9% (NS) flush 10 mL 10 mL, IntraVENous, PRN, line care, Starting on Sophia 06/12/23 at 0915, Preprocedure, After every IV line use sodium chloride 0.9% (NS) flush 5-40 mL 5-40 mL, IntraVENous, PRN, line care, After every IV line use, Starting on Sophia 06/12/23 at 0915, Preprocedure, For Line Patency: Peripheral IV = 5 mL; Midline or Central Line = 10 mL/lumen. If following IV push medication, administer flush at same rate as the IV push. Flush volume is determined by type of infusion therapy being given. For non-viscous solutions use: Peripheral IV = 5 mL Midline or Central Line = 10 mL/lumen For viscous solutions (i.e. blood components, parenteral nutrition, contrast media, or after obtaining blood sample) use: Peripheral IV = 10 mL Midline or Central Line = 20 mL/lumen Linked Groups Order Group 1: labetalol (Normodyne,Trandate) injection 5 mgJump to med 5 mg, IntraVENous, Every 10 min PRN, high blood pressure, for SBP greater than 160 mmHg for 2 consecutive measurements taken from different sites., Starting on Sophia 06/12/23 at 1352, For 2 doses, Recovery (only), PRN for SBP >160 for 2 consecutive measurements, if HR is 60 or greater. If beta melinda is contraindicated (HR less than 60, heart block, COPD or asthma) use hydralazine IV order. Or hydrALAZINE (Apresoline) injection 5 mgJump to med 5 mg, IntraVENous, Every 15 min PRN, high blood pressure, for SBP greater than 160 mmHg for 2 consecutive measurements taken from different sites, Starting on Sophia 06/12/23 at 1352, For 2 doses, Recovery (only), PRN for SBP > 160 for 2 consecutive measurements, and if one of the following conditions is met: 1) If IV labetolol is ineffective. 2) If HR is under 60. 3) If patient has heart block, COPD or asthma. If both labetalol and hydralazine ineffective, notify anesthesia provider. Group 2: oxyCODONE (Roxicodone) immediate release tablet 5 mgJump to med 5 mg, Oral, PRN, moderate pain (4-6), Starting on Sophia 06/12/23 at 1352, For 1 dose, Recovery (only), PHASE II Or oxyCODONE (Roxicodone) immediate release tablet 10 mgJump to med 10 mg, Oral, PRN, severe pain (7-10), Starting on Sophia 06/12/23 at 1352, For 1 dose, Recovery (only), PHASE II Care Team (unrecognized sect ion and content) Care Team Personnel Name: SERGIO SILVA DO Position: P4 Physician - Primary Care Member Role: Primary Care Physician Address: Address: [address] [place] [address] Care Team Related Persons Name: OLIVIA MELO Care Team Personnel Name: SERIGO SILVA DO Position: P4 Physician - Primary Care Member Role: Primary Care Physician Address: Address: [address] [place] [address]- Care Team Related Persons Name: OLIVIA MELO Reason for Visit (unrecogniz ed section and content) Reason Comments Post-op 1 year PO triple, in creased pain arch Specialty Diagnoses / Procedures Referred By Dora whitley Referred To Contact Diagnoses Pseudarthrosis after fusion or arthrodesis Pseudarthrosis after fusion or arthrodesis [M96.0] Procedures NE REMOVAL IMPLANT DEEP NE ARTHRD MIDTARSL/TARS PATROL OFFICER/TRANSVRS W/OSTEOT LEFT FOOT REMOVAL DEEP IMPLANT, REVISION CALCANEOCUBOID JOINT AND TALONAVICULAR JOINT ARTHRODESIS ARTHRODESIS FOOT MIDTARSAL OR METATARSAL WITH OSTEOTOMY Simone Amin MD [address] [facility] [address] [place] [address] [facility] [address] [place] [address] Referral ID Status Reason Start Date Expiration Date Visits Re quested Visits Authorized [id number] 1 1 Reason Comments Post-op Reason Comments Post-op postoperative visit s/p #1 Left Talonavicular joint fusion, #2 removal deep implant left foot Reason Comments Post-op L foot FOR RECORDS PERTAINING TO PATIENTS WHO ARE OR HAVE BEEN ENROLLED IN A CHEMICAL DEPENDENCY/SUBSTANCEABUSE PROGRAM, SOME INFORMATION MAY BE OMITTED. This clinical summary was aggregated from multiple sources. Caution should be exercised in using it in the provision of clinical care. This summary normalizes information from multiple sources, and as a consequence, information in this document may materially change the coding, format and clinical context of patient data. In addition, data may be omitted in some cases. CLINICAL DECISIONS SHOULD BE BASED ON THE PRIMARY CLINICAL RECORDS. [employer] provides no warranty or guarantee of the accuracy or completeness of information in this document.
[2023-10-16 10:22] LABS: Vitamin D,25 Hydroxy 30.7 ng/mL
[2023-10-16 11:08] LABS: Microalbumin,Random Urine 9.4 mg/L (NO RANGE EST.); Microalbumin:Creatinine Ratio 12.2 mg/g CRE (<30 mg/g CRE)
[2023-10-16 11:12] LABS: ALB/GLOB Ratio 1.2 RATIO (0.9-2.4); AST(SGOT) 25 U/L (15-37); Alanine Aminotransfer ALT/SGPT 32 U/L (13-56); Albumin, Serum 3.9 g/dL (3.2-5.0); Alkaline Phosphatase 97 U/L (45-117); Anion Gap 5 (5-15); BUN 15 mg/dL (7-18); BUN/Creat Ratio 19.2 RATIO (10-20); Chloride 105 mmol/L (98-107); Creatinine, Serum 0.78 mg/dL (0.55-1.02); EST Glomerular Filtration Rate 81 mL/min (>60); Est Glom Filt Rate - Afr Amer 98 mL/min (>60); Globulin 3.3 g/dL (2.2-4.2); Glucose 166 mg/dL (74-106); Protein, Total 7.2 g/dL (6.4-8.2); Sodium Level 135 mmol/L (136-145)
[2023-10-17 10:41] LABS: Hemoglobin A1c 7.5 % (3.8-5.6)
== END | disposition home or self-care (01) ==
LOC: MTLAB 07:49
PROVIDERS: PCP Preventive Medicine Occupational Medicine; Referring Provider Internal Medicine Endocrinology, Diabetes & Metabolism; Visit Provider Internal Medicine Endocrinology, Diabetes & Metabolism
DX: E55.9 Vitamin D deficiency, unspecified (principal); Z79.84 Long term (current) use of oral hypoglycemic drugs
CPT/HCPCS: 36415; 80053; 82043; 82306; 82570; 83036

== ENCOUNTER → 2023-11-12 | Outpatient (CLI) | payer OTHER, SELFPAY ==
[2023-11-12 17:38] LABS: Absolute Lymphocyte Count 2.07 X10^3/uL (0.83-4.51); Absolute Neutrophil Count 6.5 X10^3/uL (2.0-7.7); Basophil# 0.12 X10^3/uL; Basophil% 1.3 % (0-1); Eosinophil# 0.05 X10^3/uL; Eosinophils% 0.5 % (0-5); Hematocrit 41.5 % (37-47); Hemoglobin 13.5 g/dL (12.0-15.0); Lymphocyte # 2.07 X10^3/ul (0.83-4.51); Lymphocyte % 22.2 % (19-41); Mean Corp Hgb Conc 32.5 g/dL (32-36); Mean Corpuscular Hgb 26.5 pg (27.0-32.0); Mean Corpuscular Volume 81.5 fL (81-99); Mean Platelet Vol. 10.1 fl (6.2-12.0); Monocyte# 0.47 X10^3/uL; NRBC Flagged by Analyzer 0 % (0-5); Neutrophil # 6.53 X10^3/uL (2.7-7.7); Neutrophil % 69.9 % (47-70); Platelet Count 307 K/mm3 (150-450); RBC Distribution Width CV 13.6 % (11.6-14.6); RBC Distribution Width SD 39.9 fl (35.1-43.9); Red Blood Count 5.09 M/mm3 (4.2-5.4); White Blood Count 9.3 K/mm3 (4.4-11.0)
[2023-11-12 18:27] LABS: ALB/GLOB Ratio 1.1 RATIO (0.9-2.4); AST(SGOT) 29 U/L (15-37); Alanine Aminotransfer ALT/SGPT 29 U/L (13-56); Albumin, Serum 3.9 g/dL (3.2-5.0); Alkaline Phosphatase 101 U/L (45-117); Anion Gap 6 (5-15); BUN 14 mg/dL (7-18); BUN/Creat Ratio 15.3 RATIO (10-20); Calcium,Total 9.5 mg/dL (8.5-10.1); Chloride 105 mmol/L (98-107); Creatinine, Serum 0.91 mg/dL (0.55-1.02); EST Glomerular Filtration Rate 68 mL/min (>60); Est Glom Filt Rate - Afr Amer 82 mL/min (>60); Globulin 3.6 g/dL (2.2-4.2); Glucose 124 mg/dL (74-106); Protein, Total 7.5 g/dL (6.4-8.2); Sodium Level 138 mmol/L (136-145)
== END | disposition home or self-care (01) ==
LOC: MTLAB 16:05
PROVIDERS: PCP Preventive Medicine Occupational Medicine; Referring Provider Internal Medicine Rheumatology; Visit Provider Internal Medicine Rheumatology
DX: M06.00 Rheumatoid arthritis without rheumatoid factor, unspecified site (principal); M79.7 Fibromyalgia; Z79.899 Other long term (current) drug therapy
CPT/HCPCS: 36415; 80053; 85025

== ENCOUNTER → 2024-01-19 | Outpatient (CLI) | payer OTHER, SELFPAY ==
[2024-01-19 11:24] LABS: ALB/GLOB Ratio 1.1 RATIO (0.9-2.4); AST(SGOT) 33 U/L (15-37); Alanine Aminotransfer ALT/SGPT 30 U/L (13-56); Albumin, Serum 3.8 g/dL (3.2-5.0); Alkaline Phosphatase 99 U/L (45-117); Anion Gap 7 (5-15); BUN 14 mg/dL (7-18); BUN/Creat Ratio 16.3 RATIO (10-20); Calcium,Total 9.1 mg/dL (8.5-10.1); Chloride 103 mmol/L (98-107); Creatinine, Serum 0.86 mg/dL (0.55-1.02); EST Glomerular Filtration Rate 73 mL/min (>60); Est Glom Filt Rate - Afr Amer 88 mL/min (>60); Globulin 3.6 g/dL (2.2-4.2); Glucose 170 mg/dL (74-106); Potassium 3.9 mmol/L (3.5-5.1); Protein, Total 7.4 g/dL (6.4-8.2); Sodium Level 136 mmol/L (136-145); Thyroid Stim Hormone (TSH) 1.21 uIU/mL (0.358-3.74)
[2024-01-19 11:49] LABS: Hemoglobin A1c 7.3 % (3.8-5.6)
== END | disposition home or self-care (01) ==
LOC: MTLAB 07:48
PROVIDERS: PCP Preventive Medicine Occupational Medicine; Referring Provider Internal Medicine Endocrinology, Diabetes & Metabolism; Visit Provider Internal Medicine Endocrinology, Diabetes & Metabolism
DX: E11.65 Type 2 diabetes mellitus with hyperglycemia (principal); E03.8 Other specified hypothyroidism
CPT/HCPCS: 36415; 80053; 83036; 84443

== ENCOUNTER → 2024-02-17 | Outpatient (CLI) | payer OTHER, SELFPAY ==
[2024-02-17 10:01] LABS: Absolute Lymphocyte Count 1.76 X10^3/uL (0.83-4.51); Absolute Neutrophil Count 4.3 X10^3/uL (2.0-7.7); Basophil# 0.07 X10^3/uL; Eosinophil# 0.15 X10^3/uL; Eosinophils% 2.1 % (0-5); Hematocrit 45.6 % (37-47); Hemoglobin 14.5 g/dL (12.0-15.0); Lymphocyte # 1.76 X10^3/ul (0.83-4.51); Lymphocyte % 25.1 % (19-41); Mean Corp Hgb Conc 31.8 g/dL (32-36); Mean Corpuscular Hgb 26.8 pg (27.0-32.0); Mean Corpuscular Volume 84.3 fL (81-99); Mean Platelet Vol. 10.4 fl (6.2-12.0); Monocyte# 0.66 X10^3/uL; Monocyte% 9.4 % (0-10); NRBC Flagged by Analyzer 0 % (0-5); Neutrophil # 4.32 X10^3/uL (2.7-7.7); Neutrophil % 61.5 % (47-70); Platelet Count 249 K/mm3 (150-450); RBC Distribution Width CV 13.7 % (11.6-14.6); RBC Distribution Width SD 41.9 fl (35.1-43.9); Red Blood Count 5.41 M/mm3 (4.2-5.4)
[2024-02-17 10:49] LABS: ALB/GLOB Ratio 1.1 RATIO (0.9-2.4); AST(SGOT) 25 U/L (15-37); Alanine Aminotransfer ALT/SGPT 32 U/L (13-56); Alkaline Phosphatase 117 U/L (45-117); Anion Gap 6 (5-15); BUN 19 mg/dL (7-18); BUN/Creat Ratio 22.5 RATIO (10-20); Calcium,Total 9.5 mg/dL (8.5-10.1); Chloride 106 mmol/L (98-107); Creatinine, Serum 0.85 mg/dL (0.55-1.02); EST Glomerular Filtration Rate 74 mL/min (>60); Est Glom Filt Rate - Afr Amer 90 mL/min (>60); Globulin 3.5 g/dL (2.2-4.2); Glucose 171 mg/dL (74-106); Potassium 3.9 mmol/L (3.5-5.1); Protein, Total 7.5 g/dL (6.4-8.2); Sodium Level 137 mmol/L (136-145)
== END | disposition home or self-care (01) ==
LOC: MTLAB 08:01
PROVIDERS: PCP Preventive Medicine Occupational Medicine; Referring Provider Internal Medicine Rheumatology; Visit Provider Internal Medicine Rheumatology
DX: M06.00 Rheumatoid arthritis without rheumatoid factor, unspecified site (principal); M79.7 Fibromyalgia; Z79.899 Other long term (current) drug therapy
CPT/HCPCS: 36415; 80053; 85025

== ENCOUNTER → 2024-08-10 | Outpatient (CLI) | payer OTHER, SELFPAY ==
[2024-08-10 18:03] LABS: Absolute Neutrophil Count 5.4 X10^3/uL (2.0-7.7); Basophil% 1.1 % (0-1); Eosinophil# 0.24 X10^3/uL; Eosinophils% 2.8 % (0-5); Hematocrit 38.7 % (37-47); Hemoglobin 12.6 g/dL (12.0-15.0); Lymphocyte % 25.3 % (19-41); Mean Corp Hgb Conc 32.6 g/dL (32-36); Mean Platelet Vol. 10.4 fl (6.2-12.0); Monocyte# 0.67 X10^3/uL; Monocyte% 7.7 % (0-10); NRBC Flagged by Analyzer 0 % (0-5); Neutrophil # 5.44 X10^3/uL (2.7-7.7); Neutrophil % 62.5 % (47-70); Platelet Count 235 K/mm3 (150-450); RBC Distribution Width CV 13.4 % (11.6-14.6); RBC Distribution Width SD 40.4 fl (35.1-43.9); Red Blood Count 4.66 M/mm3 (4.2-5.4); White Blood Count 8.7 K/mm3 (4.4-11.0)
[2024-08-10 18:22] LABS: ALB/GLOB Ratio 1.2 RATIO (0.9-2.4); AST(SGOT) 20 U/L (15-37); Alanine Aminotransfer ALT/SGPT 23 U/L (13-56); Albumin, Serum 3.8 g/dL (3.2-5.0); Alkaline Phosphatase 94 U/L (45-117); Anion Gap 5 (5-15); BUN 18 mg/dL (7-18); BUN/Creat Ratio 18.7 RATIO (10-20); Calcium,Total 8.9 mg/dL (8.5-10.1); Chloride 104 mmol/L (98-107); Creatinine, Serum 0.96 mg/dL (0.55-1.02); EST Glomerular Filtration Rate 64 mL/min (>60); Est Glom Filt Rate - Afr Amer 77 mL/min (>60); Globulin 3.3 g/dL (2.2-4.2); Glucose 165 mg/dL (74-106); Protein, Total 7.1 g/dL (6.4-8.2); Sodium Level 138 mmol/L (136-145)
== END | disposition home or self-care (01) ==
LOC: MTLAB 15:40
PROVIDERS: PCP Preventive Medicine Occupational Medicine; Referring Provider Internal Medicine Rheumatology; Visit Provider Internal Medicine Rheumatology
DX: M06.00 Rheumatoid arthritis without rheumatoid factor, unspecified site (principal); M79.7 Fibromyalgia; Z79.899 Other long term (current) drug therapy
CPT/HCPCS: 36415; 80053; 85025

== ENCOUNTER → 2024-09-06 | Outpatient (CLI) | payer OTHER, SELFPAY ==
--- NOTE | 2024-09-06 15:21 | BI_ITS ---
MAMMOGRAPHY - BILATERAL SCREENING 3-D TOMOSYNTHESIS REASON FOR EXAM: Female, 54 years old. SCREENING PERTINENT HISTORY: No significant family history. TECHNIQUE: 2-D mammograms and 3-D Tomosynthesis of the breast (s) were performed. CAD was performed. COMPARISON: 08/21/2023 FINDINGS: The breast composition is heterogeneously dense that can obscure small breast masses. Scattered benign calcifications are seen. No dense spiculated masses or suspicious microcalcifications are identified. No architectural distortion is identified. There is no skin thickening or retraction. There has been no significant change since the prior study. BI/SCRN MAMM (CAD)W/URBAN BILAT IMPRESSION: No mammographic signs of malignancy. Routine yearly mammograms recommended. ASSESSMENT CATEGORY: BIRADS Category 1: Negative. A letter regarding these results will be sent to the patient by the facility within 30 days. FOLLOW UP RECOMMENDATION: Yearly follow up mammogram recommended. (A) Approximately 10% of breast cancers are not detected by mammography. A normal mammogram should not delay biopsy of a clinically suspicious abnormality. Electronically Signed: Will Ornelas MD at 20:54 EST ,
== END | disposition home or self-care (01) ==
LOC: OPBI 15:20
PROVIDERS: PCP Preventive Medicine Occupational Medicine
DX: Z12.31 Encounter for screening mammogram for malignant neoplasm of breast (principal)
CPT/HCPCS: 77063; 77067

== ENCOUNTER → 2024-10-29 | Outpatient (CLI) | payer OTHER, SELFPAY ==
[2024-10-29 12:37] LABS: Absolute Lymphocyte Count 2.31 X10^3/uL (0.83-4.51); Absolute Neutrophil Count 4.4 X10^3/uL (2.0-7.7); Basophil# 0.05 X10^3/uL; Basophil% 0.7 % (0-1); Eosinophil# 0.14 X10^3/uL; Eosinophils% 1.9 % (0-5); Hematocrit 40.6 % (37-47); Hemoglobin 13.2 g/dL (12.0-15.0); Lymphocyte # 2.31 X10^3/ul (0.83-4.51); Lymphocyte % 31.3 % (19-41); Mean Corp Hgb Conc 32.5 g/dL (32-36); Mean Corpuscular Hgb 26.3 pg (27.0-32.0); Mean Corpuscular Volume 80.9 fL (81-99); Mean Platelet Vol. 10.1 fl (6.2-12.0); Monocyte# 0.46 X10^3/uL; Monocyte% 6.2 % (0-10); NRBC Flagged by Analyzer 0 % (0-5); Neutrophil # 4.37 X10^3/uL (2.7-7.7); Neutrophil % 59.4 % (47-70); Platelet Count 270 K/mm3 (150-450); RBC Distribution Width CV 13.1 % (11.6-14.6); Red Blood Count 5.02 M/mm3 (4.2-5.4); White Blood Count 7.4 K/mm3 (4.4-11.0)
[2024-10-29 13:00] LABS: Vitamin D,25 Hydroxy 43.1 ng/mL
[2024-10-29 13:10] LABS: Hemoglobin A1c 7.9 % (3.8-5.6)
[2024-10-29 13:22] LABS: ALB/GLOB Ratio 1.1 RATIO (0.9-2.4); AST(SGOT) 26 U/L (15-37); Alanine Aminotransfer ALT/SGPT 27 U/L (13-56); Alkaline Phosphatase 107 U/L (45-117); Anion Gap 7 (5-15); BUN 20 mg/dL (7-18); BUN/Creat Ratio 22.4 RATIO (10-20); Calcium,Total 9.3 mg/dL (8.5-10.1); Chloride 105 mmol/L (98-107); Creatinine, Serum 0.89 mg/dL (0.55-1.02); EST Glomerular Filtration Rate 70 mL/min (>60); Est Glom Filt Rate - Afr Amer 84 mL/min (>60); Globulin 3.6 g/dL (2.2-4.2); Glucose 198 mg/dL (74-106); Potassium 3.9 mmol/L (3.5-5.1); Protein, Total 7.6 g/dL (6.4-8.2); Sodium Level 137 mmol/L (136-145)
== END | disposition home or self-care (01) ==
LOC: MTLAB 10:32
PROVIDERS: PCP Preventive Medicine Occupational Medicine; Referring Provider Internal Medicine Endocrinology, Diabetes & Metabolism; Visit Provider Internal Medicine Endocrinology, Diabetes & Metabolism
DX: E11.65 Type 2 diabetes mellitus with hyperglycemia (principal); M06.00 Rheumatoid arthritis without rheumatoid factor, unspecified site; E03.8 Other specified hypothyroidism; E55.9 Vitamin D deficiency, unspecified; M79.7 Fibromyalgia; K76.0 Fatty (change of) liver, not elsewhere classified; Z79.899 Other long term (current) drug therapy
CPT/HCPCS: 36415; 80053; 82043; 82306; 83036; 84443; 85025

== ENCOUNTER → 2025-03-17 | Outpatient (CLI) | payer OTHER, SELFPAY ==
[2025-03-17 11:38] LABS: Syphilis Antibodies Nonreactive (Nonreactive)
== END | disposition home or self-care (01) ==
LOC: MTLAB 08:42
PROVIDERS: PCP Nurse Practitioner Adult Health; Referring Provider Physician Assistant; Visit Provider Physician Assistant
DX: L30.9 Dermatitis, unspecified (principal)
CPT/HCPCS: 36415; 86617; 86780

== ENCOUNTER → 2025-07-29 | Outpatient (CLI) | payer OTHER, SELFPAY ==
[2025-07-29 17:45] LABS: Hematocrit 42.8 % (37-47); Hemoglobin 14.1 g/dL (12.0-15.0); Immature Granulocytes Count 0.050 X10^3/uL (0.0-0.0); Mean Corp Hgb Conc 32.9 g/dL (32-36); Mean Corpuscular Volume 82.9 fL (81-99); Mean Platelet Vol. 10.4 fl (6.2-12.0); NRBC Flagged by Analyzer 0 % (0-5); Platelet Count 266 K/mm3 (150-450); RBC Distribution Width CV 13.5 % (11.6-14.6); RBC Distribution Width SD 40.9 fl (35.1-43.9); Red Blood Count 5.16 M/mm3 (4.2-5.4); White Blood Count 8.7 K/mm3 (4.4-11.0)
== END | disposition home or self-care (01) ==
LOC: MTLAB 16:13
PROVIDERS: PCP Nurse Practitioner Adult Health; Referring Provider Internal Medicine Rheumatology; Visit Provider Internal Medicine Rheumatology
DX: M06.00 Rheumatoid arthritis without rheumatoid factor, unspecified site (principal); M79.7 Fibromyalgia; Z79.899 Other long term (current) drug therapy
CPT/HCPCS: 36415; 85025

== ENCOUNTER → 2025-09-02 | Outpatient (CLI) | payer OTHER, SELFPAY ==
--- OUTSIDE RECORDS SUMMARY | 2025-09-02 15:26 | XMS RPT_ITS | CCD ---
Author Organization [facility] CliniSyal Care Team Providers Care Flooring Machine Operator Name Role Phone SERGIO JAUREGUI DO Primary Care Physician [phone] Sergio Jauregui DO Primary Care Provider [phone] Sergio Jauregui DO Primary Care Provider [phone] SIMONE AMIN Attending Unavailable PROVIDER, UNKNOWN Referring Unavailable Sergio Jauregui Primary Care Unavaila ble Kaehler, Rocael Attending Unavailable PROVIDER, UNKNOWN Referring Unavailable Sergio Jauregui Primary Care Unavaila ble Kaehler, Rocael Attending Unavailable PROVIDER, UNKNOWN Referring Unavailable Sergio Jauregui Primary Care Unavaila SIMONE Hughes Attending Unavailable PROVIDER, UNKNOWN Referring Unavailable Sergio Jauregui Primary Care Unavaila ble SMIONE AMIN Attending Unavailable PROVIDER, UNKNOWN Referring Unavailable Sergio Jauregui Primary Care Unavaila SERGIO Ornelas DO Primary Care Physician [phone] Sergio Jauregui DO Primary Care Provider [phone] SIMONE AMIN Admitting Unavailable SIMONE AMIN Attending Unavailable SERGIO JAUREGUI Primary Care Unavailable SIMONE AMIN Attending Unavailable SERGIO JAUREGUI Primary Care Unavailable SIMONE AMIN Attending Unavailable SERGIO JAUREGUI Primary Care Unavailable SIMONE AMIN Attending Unavailable SERGIO JAUREGUI Primary Care Unavailable KAEHLER, ROCAEL Attending Unavailable SERGIO JAUREGUI Primary Care Unavailable CAMERON SIMPSON Attending Unavailable CAMERON SIMPSON Referring Unavailable SERGIO JAUREGUI Primary Care Unavailable SIMONE AMIN Attending Unavailable SHANAI SERGIO Primary Care Unavailable SIMONE AMIN Attending Unavailable SHANIA SERGIO Primary Care Unavailable KAEHLER, ROCAEL Referring Unavailable SHANIASERGIO Wagner Primary Care Unavailable KAEHLER, ROCAEL Referring Unavailable SERGIO JAUREGUI Primary Care Unavailable SIMONE AMIN Referring Unavailable SERGIO JAUREGUI Primary Care Unavailable SIMONE AMIN Referring Unavailable SHANIA, SERGIO Primary Care Unavailable KAEHLER, ROCAEL Referring Unavailable SHNAIA, SERGIO Primary Care Unavailable KAEHLER, ROCAEL Referring Unavailable SHANIA, SERGIO Primary Care Unavailable SIMONE AMIN Attending Unavailable SHANIA, SERGIO Primary Care Unavailable ADRIA CARDIAC CATHETERIZATION TECHNOLOGIST-SENIOR STATISTICIAN, ROSA Attending Unavailab le SHANIA DO, SERGIO Primary Care Unavailable WIETECHA DO, CAMERON Manley Attending Unavailable SHANIA DO, SERGIO Primary Care Unavailable Shania DO, Sergio F Primary Care Provider [phone] TATIANA RICHARD, CAMERON Manley Attending Unavailable SHANIA DO, SERGIO Primary Care Unavailable SHANIA DO, SERGIO Primary Care Unavailable MANJIT WILLOUGHBY MD Attending Unavailable Shania RICHARD, Dr. Soria Primary Care Provider [phone] Mary RG, Dr. Paredes Attending Provider Mary RG, Dr. Paredes Referring Provider Ruben RG, Dr. Barber Attending Provider Ruben RG, Dr. Barber Referring Provider Dr. Cameron Simpson DO Attending Provider Tatiana RICHARD, Dr. Barnes Referring Provider Mary RG, Dr. Paredes Other Provider Shania RICHARD, Dr. Soria Referring Provider Donnie Newton Attending Provider HERBIE CAST Primary Care Physician [phone] Sergio Jauregui DO Primary Care Provider [phone] MAST HERBIE DEWEY Primary Care Provider [phone] Rita Knight Attending Provider Rita Knight Referring Provider Rita Knight Attending Unavailable Rita Knight Referring Unavailable HERBIE JAQUEZ Primary Care Unavailable Lena Hernandez Referring Unavailable Shania, Sergio Primary Care Unavailable Lena Hernandez Attending Unavailable Shania, Sergio Primary Care Unavailable Elisabeth Willoughby Attending Unavailable Elisabeth Willoughby Referring Unavailable Shania, Sergio Primary Care Unavailable Shania, Sergio Referring Unavailable Donnie Newton Attending Unavailable Cameron Simpson Referring Unavailable Sergio Jauregui Primary Care Unavailable Lena Hernandez Consulting Unavailable Cameron Simpson Attending Unavailable SERGIO JAUREGUI Primary Care Unavailable Donte Boyle Attending Unavailable SERGIO JAUREGUI Primary Care Unavailable Donte Boyle Attending Unavailable SERGIO JAUREGUI Primary Care Unavailable MAST CARDIAC CATHETERIZATION TECHNOLOGIST-SENIOR STATISTICIAN, HERBIE Primary Care Unavailpenelope HERNANDEZ MD, DR PAREDES Attending Unavailabl e MAST CARDIAC CATHETERIZATION TECHNOLOGIST-SENIOR STATISTICIAN, HERBIE Primary Care Unavailabl e WIETECHA DOCAMERON Attending Unavailable BAO DAO DO Attending Unavailable MAST CARDIAC CATHETERIZATION TECHNOLOGIST-SENIOR STATISTICIAN, HERBIE Primary Care Unavailabl jani HERNANDEZ MD, DR PAREDES Attending Unavailabl e SHANIA DO, SERGIO Primary Care Unavailable WIETECHA DO, CAMERON Manley Attending Unavailable SHANIA RICHARD, SERGOI Primary Care Unavailable SHANIA DO, SERGIO Primary Care Unavailable WIETECHA DO, CAMERON Manley Attending Unavailable SHANIA RICHARD, SERGIO Primary Care Unavailable MANJIT WILLOUGHBY MD Attending Unavailable MAST CARDIAC CATHETERIZATION TECHNOLOGIST-SENIOR STATISTICIAN, HERBIE Primary Care Unavailabl e MAST CARDIAC CATHETERIZATION TECHNOLOGIST-SENIOR STATISTICIAN, HERBIE Attending Unavailabl e MAST CARDIAC CATHETERIZATION TECHNOLOGIST-SENIOR STATISTICIAN, HERBIE Primary Care Unavailabl e MAGY SANCHEZ, LAURA Akers Attending Sergio Vidales DO Primary Care Provider [phone] SERGIO JAUREGUI Referring Unavailable SERGIO JAUREGUI Primary Care Unavailable Allergies Allergy Classification Reported Allergen(s) Allergy Type Date of Onset Reaction(s) Facility (17 sources) Feather Allergy to substance Unknown [facility] (17 sources) Sulfonamides (Antibiotic); Translations: [sulfa drugs] Drug allergy Syncope, Rash [facility] (17 sources) Grass Allergy to substance Unknown [facility] (17 sources) flu vaccines; Translations: [flu vaccines] Drug allergy [facility] (20 sources) Haemophilus influenzae type b Drug Allergy 2 [facility] (20 sources) Sulfonamides (Antibiotic) Propensity to adverse reactions to drug 2 Viridiana RODRIGUEZ Work Phone: (3 sources) Sulfonamides (Antibiotic); Translations: [SULFA (SULFONAMIDE ANTIBIOTICS)] Allergy to substance 5 [facility] (3 sources) Sulfonamides (Antibiotic) Drug Allergy 5 [facility] (1 source) Sulfonamides (Antibiotic) Drug allergy (disorder) 5 [facility] (1 source) ALLERGIES NOT ON FILE; Translations: [ALLERGIES NOT ON FILE] Propensity to adverse reactions (disorder) [facility] Medications Current Medications Medication Drug Class(es) Dates [...] days. 28 tablet 0 06/12/2023 06/19/2023 Active Start: 03-07-2022 End: 03-14-2022 oxyCODONE-acetaminophen (PER COCET) 5-325 MG per tablet Indications: Traumatic rupture of left anterior tibial tendon, subsequent encounter , Arthritis of foot Take 1 tablet by mouth every 6 hours as needed for Pain for up to 7 days. Intended supply: 7 days. Take lowest dose possible to manage pain 28 tablet 0 03/07/2022 03/14/2022 Active amoxicillin 875 mg oral tablet (2 sources) Penicillin-class Antibacterial Start: 02-23-2025 End: 03-02-2025 amoxicillin 875 mg oral tablet Dose : 875 mg = 1 tab(s), Oral, BID, X 7 day(s), # 14 tab(s), 0 Refill(s), 03/02/25 10:41:00 AM EDT, Pharmacy: [facility]/pharmacy #[id number], 163, cm, 02/11/25 14:38:00 EDT, Height, kg, 02/11/25 14:38:00 EDT, Dosing Weight Start Date: 02/23/25 Stop Date: 03/02/25 Status: Ordered Quantity: 14.0 Unit: tab(s) Repeat number: 1 amoxicillin 875 mg / clavulanate 125 mg oral tablet (2 sources) Penicillin-class Antibacterial Start: 02-11-2025 End: 02-21-2025 take 1 tablet by mouth every twelve hours amoxicillin-clavul anate 875 mg-125 mg oral tablet 1 tab(s), Oral, q12h, X 10 day(s), # 20 tab(s), 0 Refill(s), 02/21/25 3:13:00 PM EDT, [id number], Cat bite of left forearm Cat scratch of left forearm, 163, cm, 02/11/25 14:38:00 EDT, Height, 131.6, kg, 02/11/25 14:38:00 EDT, Dosing Weight Start Date: 02/11/25 Stop Date: 02/21/25 Status: Ordered Quantity: 20.0 Unit: tab(s) Repeat number: 1 Indications: Abrasion of left forearm, initial encounter; Open bite of left forearm, initial encounter; Start: 11-30-2021 End: 12-10-2021 take 1 tablet by mouth every twelve hours amoxicillin-clavulanate 875 mg-125 mg or al tablet 1 tab(s), Oral, q12h, X 10 day(s), # 20 tab(s), 0 Refill(s), 12/10/21 7:57:00 EDT, [id number], Cat bite of hand, 164, cm, 07/16/21 10:25:00 EST, Height, 131.7, kg, 11/30/21 7:38:00 EDT, Dosing Weight Start Date: 11/30/21 Stop Date: 12/10/21 Status: Ordered aspirin 81 mg delayed release oral tablet (10 sources) Platelet Aggregation Inhibitor, Nonsteroidal Anti-inflammatory Drug Start: 06-12-2023 End: 07-12-2023 take 1 tablet by mouth every twelve hours aspirin 81 MG EC tablet Indications: DVT prophylaxis after surgery Take 1 tablet (81 mg) by mouth in the morning and 1 tablet (81 mg) in the evening. 60 tablet 0 06/12/2023 07/12/2023 Active Start: 08-14-2022 End: 09-13-2022 take 1 tablet by mouth twice daily aspirin 81 mg oral delayed release tablet Dose : 81 mg = 1 tab(s), Oral, BID, Take 81 mg aspirin twice daily with food for 4 weeks postoperatively for DVT prophylaxis., # 60 tab(s), 0 Refill(s), [id number], 165.1, cm, 08/13/22 11:43:00 EST, Height Start Date: 08/14/22 Stop Date: 09/13/22 Status: Ordered Start: 03-07-2022 take 1 tablet by diana th once daily aspirin EC 81 MG EC tablet Indications: Traumatic rupture of left anterior tibial tendon, subsequent encounter , Arthritis of foot Take 1 tablet by mouth daily 30 tablet 0 03/07/2022 Active Blood Glucose Test Machine (11 sources) Start: 10-11-2023 Blood Glucose Test Machine See Instructions, Dispense 1 Contour glucometer, UAD twice daily to test blood sugar. Dx: E11.9, # 1 EA, 0 Refill(s), Pharmacy: [facility]/pharmacy #[id number], Diabetes, 164, cm, 09/23/23 11:34:00 EST, Height, 127, kg, 09/23/23 11:34:00 EST, Dosing Weight Start Date: 10/11/23 Status: Ordered Medication Dispense Status: Completed Quantity: 1.0 Unit: EA Total Allowed Fills: 1 Fills Dispensed: 0 Indications: Type 2 diabetes mellitus without complications; Start: 10-11-2023 Blood Glucose Test Machine See Instructions, Dispense 1 Contour glucometer, UAD twice daily to test blood sugar. Dx: E11.9, # 1 EA, 0 Refill(s), Pharmacy: [facility]/pharmacy #[id number], Diabetes, 164, cm, 09/23/23 11:34:00 EST, Height, 127, kg, 09/23/23 11:34:00 EST, Dosing Weight Start Date: 10/11/23 Status: Ordered Quantity: 1.0 Unit: EA Repeat number: 1 Indications: Type 2 diabetes mellitus without complications; Start: 10-11-2023 Blood Glucose Test Machine See Instructions, Dispense 1 Contour glucometer, UAD twice daily to test blood sugar. Dx: E11.9, # 1 EA, 0 Refill(s), Pharmacy: [facility]/pharmacy #[id number], Diabetes, 164, cm, 09/23/23 11:34:00 EST, Height, 127, kg, 09/23/23 11:34:00 EST, Dosing Weight Start Date: 10/11/23 Status: Ordered Quantity: 1.0 Unit: EA Repeat number: 1 Indication: Type 2 diabetes mellitus without complications Start: 10-11-2023 Blood Glucose Test Machine See Instructions, Dispense 1 Contour glucometer, UAD twice daily to test blood sugar. Dx: E11.9, # 1 EA, 0 Refill(s), Pharmacy: [facility]/pharmacy #[id number], Diabetes, 164, cm, 09/23/23 11:34:00 EST, Height, 127, kg, 09/23/23 11:34:00 EST, Dosing Weight Start Date: 10/11/23 Status: Ordered Brompheniramine (4 sources) Start: 09-25-2009 brompheniramin e maleate(LODRANE 24 EXTENDED RELEASE 12 MG 24 HR CAP) 1-2 tabs in evening 0 09/25/2009 Active cephalexin 500 mg oral capsule (1 source) Cephalosporin Antibacterial Start: 10-04-2021 End: 10-11-2021 cephalexin 500 mg oral capsule Dose : 500 mg = 1 cap(s), Oral, q8h, X 7 day(s), # 21 cap(s), 0 Refill(s), 10/11/21 9:42:00 EST, Pharmacy: [facility]/pharmacy #[id number], 164, cm, 07/16/21 10:25:00 EST, Height, 128.8, kg, 10/04/21 9:12:00 EST, Dosing Weight Start Date: 10/04/21 Stop Date: 10/11/21 Status: Ordered cholecalciferol 0.05 mg oral capsule (4 sources) Vitamin D Cholecalciferol (VITAMIN D) 50 MCG (1999 UT) CAPS capsule Take by mouth every morning 0 Active dapagliflozin 10 mg oral tablet (20 sources) Sodium-Glucose Cotransporter 2 Inhibitor Start: 01-14-2025 Farxiga 10 mg oral tablet Dose : 10 mg = 1 tab(s), Oral, qDay, # 30 tab(s), 0 Refill(s) Start Date: 03/22/25 Status: Ordered Medication Dispense Status: Completed Quantity: 30.0 Unit: tab(s) Total Allowed Fills: 1 Fills Dispensed: 0 Start: 08-13-2022 Farxiga 10 mg oral tablet Dose : 10 mg = 1 tab(s), Oral, qDay, # 30 tab(s), 0 Refill(s) Start Date: 08/13/22 Status: Ordered Quantity: 30.0 Unit: tab(s) Repeat number: 1 Start: 02-09-2020 Farxiga 10 mg oral tablet Dose : 10 mg = 1 tab(s), Oral, qDay, # 90 tab(s), 0 Refill(s) Start Date: 02/09/20 Status: Ordered docusate sodium 100 mg oral capsule (3 sources) Start: 06-12-2023 End: 06-22-2023 take 1 capsule by mouth twice daily docusate sodium (Colace) 100 MG capsule Indications: Arthritis of foot Take 1 capsule (100 mg) by mouth 2 times daily for 10 days. 20 capsule 0 06/12/2023 06/22/2023 Active docusate sodium 50 mg / sennosides, residential 8.6 mg oral tablet (1 source) Start: 08-14-2022 End: 08-16-2022 take 1 tablet by mouth twice daily Senokot S 50 mg-8.6 mg oral tablet Dose = 2 tab(s), Oral, BID, Take until first bowel movement, then as needed, # 30 tab(s), 0 Refill(s), Pharmacy: [facility]/pharmacy #[id number], 165.1, cm, 08/13/22 11:43:00 EST, Height Start Date: 08/14/22 Stop Date: 08/16/22 Status: Ordered DULoxetine 60 mg delayed release oral capsule (20 sources) Serotonin and Norepinephrine Reuptake Inhibitor Start: 12-10-2021 Cymbalta 60 mg oral delayed release capsule Dose : 60 mg = 1 cap(s), Oral, qHS Start Date: 08/13/22 Status: Ordered Medication Dispense Status: Completed Total Allowed Fills: 1 Fills Dispensed: 0 Start: 03-09-2021 take 1 dose by mouth once olesya y Start: 03-09-2021 empagliflozin 25 mg / linagliptin 5 mg oral tablet (5 sources) Dipeptidyl Peptidase 4 Inhibitor, Sodium-Glucose Cotransporter 2 Inhibitor Start: 12-07-2021 GLYXAMBI 25-5 MG TAB S every morning 0 12/07/2021 Active ergocalciferol 1.25 mg oral capsule (19 sources) Provitamin D2 Compound Start: 11-11-2024 ergocal ciferol 50,000 intl units (1.25 mg) oral capsule Dose : 50,000 International_Unit = 1 cap(s), Oral, qWeek, # 30 cap(s), 0 Refill(s) Start Date: 11/11/24 Status: Ordered Medication Dispense Status: Completed Quantity: 30.0 Unit: cap(s) Total Allowed Fills: 1 Fills Dispensed: 0 Start: 06-12-2023 End: 06-12-2023 take 1 capsule by mouth every week ergocalciferol (Vitamin D2) 1.25 MG (72816 UT) capsule Indications: Arthritis of foot Take 1 capsule (1.25 mg) by mouth 1 (one) time per week for 4 doses. 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 6 capsule 0 04/21/2023 05/27/2023 Active esomeprazole 40 mg delayed release oral capsule (4 sources) Proton Pump Inhibitor Start: 09-25-2009 esomeprazole mag trihydrate(NEXIUM 40 MG CAP) Take one(1) capsule daily. 0 09/25/2009 Active herbal/nutritional product (2 sources) Start: 08-13-2022 take 1 capsule by mouth once daily in the morning herbal/nutritional product 200 mg, Oral, qAM, Turmeric 200 mg capsule Start Date: 08/13/22 Status: Ordered hydroCHLOROthiazide 50 mg / spironolactone 50 mg oral tablet (4 sources) Thiazide Diuretic, Aldosterone Antagonist Start: 09-25-2009 spironolact/hydrochlo rothiazid(ALDACTAZIDE 50 MG-50 MG TAB) Take one(1) tablet daily. in evening 0 09/25/2009 Active hydroxychloroquine sulfate 200 mg oral tablet (20 sources) Antimalarial, Antirheumatic Agent Start: 12-23-2018 hydroxychloroquine 200 mg oral tablet Dose : 200 mg = 1 tab(s), Oral, BID, 0 Refill(s) Start Date: 12/23/18 Status: Ordered Medication Dispense Status: Completed Total Allowed Fills: 1 Fills Dispensed: 0 labetalol (NORMODYNE;TRANDATE) injection 5 mg (1 source) Start: 03-07-2022 labetalol (NORMODYNE;TRANDATE) injection 5 mg levothyroxine sodium 0.15 mg oral tablet (20 sources) l-Thyroxine Start: 10-29-2024 take 1 tablet by mouth once daily Levothyroxine 150 mcg tablet Active 150 ug PO daily October 29, 2024 1:00am Start: 12-04-2021 take 1 tablet by diana once daily levothyroxine (Synthroid, Levoxyl) 150 MCG tablet Take 1 tablet by mouth daily. 0 12/04/2021 Active Start: 10-06-2019 levothyroxine 150 mcg (0.15 mg) oral tablet Dose : 150 mcg = 1 tab(s), Oral, qDay, # 90 tab(s), 0 Refill(s) Start Date: 10/06/19 Status: Ordered Medication Dispense Status: Completed Quantity: 90.0 Unit: tab(s) Total Allowed Fills: 1 Fills Dispensed: 0 Start: 09-25-2009 levothyroxine sodium(SYNTHROID 137 MCG TAB) Take one(1) tablet daily. 0 09/25/2009 Active lisinopril 10 mg oral tablet (20 sources) Angiotensin Converting Enzyme Inhibitor Start: 09-25-2009 lisinopril 10 mg ora l tablet Dose : 10 mg = 1 tab(s), Oral, qDay, # 90 tab(s), 3 Refill(s), Pharmacy: [facility]/pharmacy #[id number], 165, cm, 03/22/25 11:06:00 EDT, Height, kg, 03/22/25 11:06:00 EDT, Dosing Weight Start Date: 03/22/25 Status: Ordered Medication Dispense Status: Completed Quantity: 90.0 Unit: tab(s) Total Allowed Fills: 4 Fills Dispensed: 0 meloxicam 15 mg oral tablet (20 sources) Nonsteroidal Anti-inflammatory Drug Start: 06-20-2022 meloxicam 15 mg o ral tablet Dose : 15 mg = 1 tab(s), Oral, qPM, 0 Refill(s) Start Date: 06/20/22 Status: Ordered Medication Dispense Status: Completed Total Allowed Fills: 1 Fills Dispensed: 0 Start: 12-05-2021 take 1 tablet by diana th once daily meloxicam (MOBIC) 15 MG tablet Take 15 mg by mouth daily 0 12/05/2021 Active Start: 12-23-2018 meloxicam 15 m g oral tablet Dose : 15 mg = 1 tab(s), Oral, qDay, # 30 tab(s), 0 Refill(s) Start Date: 12/23/18 Status: Ordered montelukast 10 mg oral tablet (4 sources) Leukotriene Receptor Antagonist Start: 09-25-2009 montelukast sodium(SINGULAIR 10 MG TAB) Take one(1) tablet daily at bedtime. 0 09/25/2009 Active mupirocin 0.02 mg/mg topical ointment (1 source) RNA Synthetase Inhibitor Antibacterial Start: 02-11-2025 End: 02-21-2025 mupirocin 2% topical ointment Apply 1 concepcion, Topical, BID, apply a thin film, X 10 day(s), # 22 gram(s), 0 Refill(s), Pharmacy: [facility]/pharmacy #[id number], 163, cm, 02/11/25 14:38:00 EDT, Height, 131.6, kg, 02/11/25 14:38:00 EDT, Dosing Weight Start Date: 02/11/25 Stop Date: 02/21/25 Status: Ordered Quantity: 22.0 Unit: g Repeat number: 1 Indications: Abrasion of left forearm, initial encounter; Open bite of left forearm, initial encounter; nateglinide 120 mg oral tablet (13 sources) Glinide Start: 03-16-2024 nateglinide 12 0 mg oral tablet Dose : 120 mg = 1 tab(s), Oral, TIDAC, 0 Refill(s) Start Date: 03/16/24 Status: Ordered Medication Dispense Status: Completed Total Allowed Fills: 1 Fills Dispensed: 0 Start: 10-22-2023 take 1 tablet by diana th once daily at mealtime nateglinide (Starlix) 120 MG tablet TAKE 1 TABLET BY MOUTH EVERY DAY WITH SUPPER MEAL 0 10/22/2023 Active ondansetron 4 mg disintegrating oral tablet (8 sources) Serotonin-3 Receptor Antagonist Start: 06-12-2023 End: 06-19-2023 take 1 tablet by mouth every eight hours as needed for nausea and nausea, then take 1 tablet by mouth every eight hours as needed for nausea and nausea ondansetron ODT (Zofran-ODT) 4 MG disintegrating tablet Indications: Postoperative Nausea and Vomiting Take 1 tablet (4 mg) by mouth every 8 hours as needed for nausea or vomiting for up to 7 days. Take 1 tablet by mouth once every 8 hours as needed for nausea. 21 tablet 0 06/12/2023 06/19/2023 Active Start: 06-12-2023 End: 06-12-2023 ondansetron (Zofran) injecti on 4 mg Start: 03-07-2022 take 1 tablet by diana th three times daily as needed for nausea ondansetron (ZOFRAN-ODT) 4 MG disintegrating tablet Indications: Traumatic rupture of left anterior tibial tendon, subsequent encounter , Arthritis of foot Take 1 tablet by mouth 3 times daily as needed for Nausea or Vomiting 21 tablet 0 03/07/2022 Active Start: 03-07-2022 End: 03-07-2022 ondansetron (ZOFRAN) injecti on 4 mg semaglutide 7 mg oral tablet (20 sources) Start: 09-23-2023 Rybelsus 14 mg oral tablet 0 Refill(s) Start Date: 09/23/23 Status: Ordered Repeat number: 1 Start: 04-22-2023 Rybelsus 7 mg oral tablet Dose : 7 mg = 1 tab(s), Oral, qDay, take at least 30 minutes before first food, beverage, or other oral meds, # 30 tab(s), 0 Refill(s) Start Date: 02/11/25 Status: Ordered Medication Dispense Status: Completed Quantity: 30.0 Unit: tab(s) Total Allowed Fills: 1 Fills Dispensed: 0 Semaglutide (Rybelsus) 7 mg tablet (2 sources) Start: 10-29-2024 take 1 tablet by mouth once daily Semaglutide (Rybelsus) 7 mg tablet Active 7 mg PO daily October 29, 2024 1:00am Start: 10-29-2024 take 1 tablet by diana th once daily Semaglutide (Rybelsus) 7 mg tablet Active 7 mg PO daily October 29, 2024 12:00am SITagliptin 100 mg oral tablet (9 sources) Dipeptidyl Peptidase 4 Inhibitor Start: 03-23-2023 take 1 tablet by mouth once daily Januvia 100 MG tablet Take 100 mg by mouth daily. 0 03/23/2023 Active Start: 08-13-2022 Januvia 100 mg oral tablet Dose : 100 mg = 1 tab(s), Oral, qDay, # 30 tab(s), 0 Refill(s) Start Date: 08/13/22 Status: Ordered Start: 01-23-2021 Januvia 100 mg oral tablet Dose : 100 mg = 1 tab(s), Oral, qDay, # 30 tab(s), 0 Refill(s) Start Date: 01/23/21 Status: Ordered 24 hr tofacitinib 11 mg extended release oral tablet (20 sources) Start: 10-29-2024 take 1 tablet by mouth once daily Tofacitinib (Xeljanz Xr) 11 mg tablet extended release 24 hr Active mg PO DAILY October 29, 2024 1:00am Start: 04-01-2023 Xeljanz XR 11 mg oral tablet, extended release Dose : 11 mg = 1 tab(s), Oral, qDay, # 30 tab(s), 0 Refill(s) Start Date: 09/23/23 Status: Ordered Medication Dispense Status: Completed Quantity: 30.0 Unit: tab(s) Total Allowed Fills: 1 Fills Dispensed: 0 Start: 01-07-2022 take 1 tablet by diana th once daily XELJANZ XR 11 mg tablet, extended release Take 11 mg by mouth once daily. 01/07/2022 Active Start: 01-07-2022 XELJANZ XR 11 MG TB24 every morning 0 01/07/2022 Active Start: 02-22-2020 XELJANZ XR 11 MG TB24 traMADol hydrochloride 50 mg oral tablet (20 sources) Opioid Agonist Start: 10-29-2024 take 1 tablet by mouth three times daily as needed for pain Tramadol 50 mg tablet Active 50 mg PO THREE TIMES A DAY as needed for pain October 29, 2024 1:00am Start: 03-13-2023 take 1 tablet by diana th three times daily as needed traMADol (Ultram) 50 MG tablet Take 50 mg by mouth 3 times daily as needed. 0 03/13/2023 Active Start: 12-23-2018 traMADol 50 mg oral tablet Dose : 50 mg = 1 tab(s), Oral, TID, TAKE 1 TABLET BY MOUTH THREE TIMES A DAY NEEDED Start Date: 12/23/18 Status: Ordered triamcinolone acetonide 1 mg/ml topical cream (12 sources) Corticosteroid Start: 08-13-2022 triamcinolone 0.1% topical cream 1 application, Topical, BID, PRN hives, 125.2 Start Date: 08/13/22 Status: Ordered Medication Dispense Status: Completed Total Allowed Fills: 1 Fills Dispensed: 0 turmeric extract 500 mg oral capsule (5 sources) Start: 07-29-2022 turmeric 500 m g oral capsule Dose : 500 mg = 1 cap(s), Oral, Daily, 0 Refill(s) Start Date: 07/29/22 Status: Ordered take 2 capsules by mouth once da matthew turmeric 500 MG CAPS Take 500 mg by mouth daily 2 a day 0 Active Vitamin D3 (5 sources) Start: 12-23-2018 Vitamin D3 Dos e : 5,000 unit(s) = 1 cap(s), Oral, qDay, 0 Refill(s) Start Date: 12/23/18 Status: Ordered Vitamin D3 50 mcg (2000 intl units) oral tablet (6 sources) Start: 08-13-2022 Vitamin D3 50 mcg (2000 intl units) oral tablet Dose : 50 mcg = 1 tab(s), Oral, qPM Start Date: 08/13/22 Status: Ordered Repeat number: 1 Start: 08-13-2022 Vitamin D3 50 mcg (2000 intl units) oral tablet Dose : 50 mcg = 1 tab(s), Oral, qPM Start Date: 08/13/22 Status: Ordered Completed/Discontinued Medications Medication Drug Class(es) Dates Sig (Normalized) Sig (Original) acetaminophen 500 mg oral tablet (20 sources) Start: 06-12-2023 End: 06-12-2023 acetaminophen (Tylenol) tablet 1,000 mg Start: 08-14-2022 take 1 tablet by diana th once daily Tylenol Dose : 1,000 mg = 2 tab(s), Oral, q8h, not to exceed 3000 mg/day, 0 Refill(s) Start Date: 08/14/22 Status: Ordered Medication Dispense Status: Completed Total Allowed Fills: 1 Fills Dispensed: 0 Start: 03-07-2022 acetaminophen (TYLENOL) tablet 1,000 mg acetaminophen (T ylenol) 500 MG tablet Take by mouth. 0 Active ALPRAZolam 0.25 mg disintegrating oral tablet (2 sources) Benzodiazepine Start: 06-12-2023 End: 06-12-2023 ALPRAZolam (Xanax) disintegrating tablet 0.25 mg Start: 03-07-2022 ALPRAZolam (NI RAVAM) dissolvable tablet 0.25 mg calcium chloride 0.0014 meq/ ml / potassium chloride 0.004 meq/ml / sodium chloride 0.103 meq/ml / sodium lactate 0.028 meq/ml injectable solution (5 sources) Start: 06-12-2023 End: 06-12-2023 lactated ringers infusion Start: 03-07-2022 lactated ringe rs infusion ceFAZolin (ANCEF) 3000 mg in sodium chloride 0.9% 100 mL IVPB (1 source) Start: 03-07-2022 End: 03-07-2022 ceFAZolin (ANCEF) 3000 mg in sodium chloride 0.9% 100 mL IVPB dexameth sod lnye-twewu-yeea (TAP) syringe SOSY 60 mL (1 source) Start: 03-07-2022 End: 03-07-2022 dexameth sod vxnn-vlpxz-ssim (TAP) syringe SOSY 60 mL dexAMETHasone-bupivacain e-epinephrine (TAP) syringe 60 mL (1 source) Start: 06-12-2023 End: 06-12-2023 dexAMETHasone-bupivacai ne-epinephrine (TAP) syringe 60 mL 1 ml diphenhydrAMINE hydrochloride 50 mg/ml cartridge (2 sources) Histamine-1 Receptor Antagonist Start: 06-12-2023 End: 06-12-2023 diphenhydrAMINE (BENADryl) injection 12.5 mg Start: 03-07-2022 End: 03-07-2022 diphenhydrAMINE (BENADRYL) i njection 12.5 mg doxycycline monohydrate 100 mg oral capsule (3 sources) Tetracycline-class Drug Start: 10-29-2024 End: 11-08-2024 take 1 capsule by mouth twice daily Doxycycline Monohydrate 100 mg capsule Discontinued 100 mg PO TWICE A DAY 20 10 0 October 29, 2024 1:00am November 07, 2024 1:00am November 08, 2024 1:13am Start: 08-14-2022 End: 08-28-2022 doxycycline hyclate 100 mg o ral capsule Dose : 100 mg = 1 cap(s), Oral, q12h, X 14 day(s), # 28 cap(s), 0 Refill(s), 08/28/22 6:59:00 EST, Pharmacy: [facility]/pharmacy #[id number], 165.1, cm, 08/13/22 11:43:00 EST, Height, 125.2 Start Date: 08/14/22 Stop Date: 08/28/22 Status: Ordered famotidine 20 mg oral tablet (3 sources) Histamine-2 Receptor Antagonist Start: 06-12-2023 End: 06-12-2023 famotidine (Pepcid) tablet 20 mg Start: 08-14-2022 Pepcid 20 mg o ral tablet Dose : 20 mg = 1 tab(s), Oral, qDay, # 30 tab(s), 0 Refill(s), Pharmacy: [facility]/pharmacy #[id number], 165.1, cm, 08/13/22 11:43:00 EST, Height Start Date: 08/14/22 Status: Ordered Start: 03-07-2022 End: 03-07-2022 famotidine (PEPCID) tablet 2 0 mg 2 ml fentaNYL 0.05 mg/ml injection (2 sources) Opioid Agonist Start: 06-12-2023 End: 06-12-2023 fentaNYL (Sublimaze) injection 100 mcg Start: 03-07-2022 fentaNYL (SUBL IMAZE) injection 100 mcg 1 ml HYDROmorphone hydrochloride 1 mg/ml cartridge (4 sources) Opioid Agonist Start: 06-12-2023 End: 06-12-2023 HYDROmorphone (Dilaudid) injection 0.5 mg Start: 06-12-2023 End: 06-12-2023 HYDROmorphone (Dilaudid) inj ection 0.25 mg Start: 03-07-2022 HYDROmorphone (DILAUDID) injection 0.5 mg Start: 03-07-2022 HYDROmorphone (DILAUDID) injection 0.25 mg labetalol (Normodyne,Trandate) injection 5 mg (1 source) Start: 06-12-2023 End: 06-12-2023 labetalol (Normodyne,Trandate) injection 5 mg 10 ml lidocaine hydrochloride 10 mg/ml injection (5 sources) Antiarrhythmic, Amide Local Anesthetic Start: 06-12-2023 End: 06-12-2023 lidocaine PF (Xylocaine) 1 % injection 5 mL Start: 06-12-2023 End: 06-12-2023 lidocaine PF (Xylocaine) 1 % injection - Pyxis ADS Override Pull Start: 03-07-2022 End: 03-07-2022 lidocaine PF 1 % injection 5 mL Start: 03-07-2022 End: 03-07-2022 lidocaine PF 1 % injection Start: 03-07-2022 End: 03-07-2022 lidocaine PF 1 % injection 1 mL 1 ml LORazepam 2 mg/ml injection (1 source) Benzodiazepine Start: 06-12-2023 End: 06-12-2023 LORazepam (Ativan) injection 0.5 mg 1 ml meperidine hydrochloride 25 mg/ml cartridge (2 sources) Opioid Agonist Start: 06-12-2023 End: 06-12-2023 meperidine (Demerol) injection 12.5 mg Start: 03-07-2022 meperidine (DE MEROL) injection 12.5 mg 2 ml metoclopramide 5 mg/ml prefilled syringe (1 source) Dopamine-2 Receptor Antagonist Start: 06-12-2023 End: 06-12-2023 metoclopramide (Reglan) injection 5 mg 2 ml midazolam 1 mg/ml injection (2 sources) Benzodiazepine Start: 06-12-2023 End: 06-12-2023 midazolam (Versed) injection 2 mg Start: 03-07-2022 midazolam (NESS SED) injection 2 mg oxyCODONE (2 sources) Opioid Agonist Start: 06-12-2023 End: 06-12-2023 oxyCODONE (Roxicodone) immed iate release tablet 5 mg Start: 08-14-2022 End: 08-21-2022 take 1-2 tablets by mouth every four hours as needed for pain oxyCODONE 5 mg oral tablet ( IMMEDIATE release ) See Instructions, PRN as needed for pain, 1-2 tab(s) Oral q4h, # 60 tab(s), 0 Refill(s), 08/21/22 7:00:00 EST, Pharmacy: [facility]/pharmacy #[id number], Status post total left knee replacement, 165.1, cm, 08/13/22 11:43:00 EST, Height, 125.2 Start Date: 08/14/22 Stop Date: 08/21/22 Status: Ordered 20 ml ropivacaine hydrochloride 5 mg/ml injection (2 sources) Amide Local Anesthetic Start: 06-12-2023 End: 06-12-2023 ropivacaine (Naropin) 5 MG/ML injection 10 mL Start: 03-07-2022 End: 03-07-2022 ropivacaine (NAROPIN) 0.5% i njection 10 mL 5 ml sodium chloride 9 mg/ml injection (18 sources) Start: 06-12-2023 End: 06-12-2023 sodium chloride 0.9 % infusi on Start: 06-12-2023 End: 06-12-2023 sodium chloride 0.9% (NS) fl ush 10 mL Start: 03-07-2022 0.9 % sodium c hloride bolus Start: 03-07-2022 0.9 % sodium c hloride infusion Start: 03-07-2022 sodium chlorid e flush 0.9 % injection 5-40 mL Problems Active Problems Problem Classification Problem Date Documented Date Episodic/Chronic Allergic reactions (5 sources) Allergy status to sulfonamides status; Translations: [Allergy status to serum and vaccine status] Onset: 03-07-2022 Episodic Chronic obstructive pulmonary disease and bronchiectasis (5 sources) Bronchitis 09-05-2023 Episodic Diabetes mellitus with complications (10 sources) Hyperglycemia due to type 2 diabetes mellitus; Translations: [Type 2 diabetes mellitus with hyperglycemia] Onset: 05-30-2023 05-30-2023 Chronic Diabetes mellitus without complication (20 sources) Diabetes mellitus; Translations: [Type 2 diabetes mellitus without complications] Onset: 03-07-2022 03-06-2016 Chronic E Codes: Natural/environment (1 source) Bitten by cat, initial encounter; Translations: [Cat bite (finding)] Onset: 02-23-2025 Episodic Essential hypertension (20 sources) Essential hypertension; Translations: [Essential (primary) hypertension] Onset: 03-07-2022 04-12-2019 Chronic Hemorrhoids (2 sources) Hemorrhoids; Translations: [Unspecified hemorrhoids] 10-29-2024 Episodic Immunizations and screening for infectious disease (5 sources) Encounter for screening for human papillomavirus (HPV); Translations: [Contact with and (suspected) exposure to other viral communicable diseases] Onset: 08-24-2024 Episodic Malaise and fatigue (17 sources) Fatigue 02-09-2020 Episodic Open wounds of extremities (2 sources) Open bite of unspecified forearm, initial encounter; Translations: [Open bite of unspecified forearm, initial encounter] Onset: 02-13-2025 Episodic Osteoarthritis (20 sources) Inflammation of joint of foot; Translations: [Primary osteoarthritis, unspecified ankle and foot] Onset: 02-08-2022 02-08-2022 Chronic Other aftercare (1 source) Wound finding; Translations: [Encounter for other specified aftercare] 04-05-2025 Episodic Other aftercare (1 source) Encounter for other specified aftercare; Translations: [Visit for wound check] Onset: 04-05-2025 Episodic Other and unspecified benign neoplasm (1 source) Benign lipomatous tumor; Translations: [Benign lipomatous neoplasm of skin and subcutaneous tissue of unspecified sites] 02-23-2025 Episodic Other and unspecified benign neoplasm (1 source) Lipoma of right upper limb; Translations: [Benign lipomatous neoplasm of skin and subcutaneous tissue of right arm] 03-22-2025 Episodic Other and unspecified benign neoplasm (1 source) Benign lipomatous neoplasm of skin and subcutaneous tissue of right arm; Translations: [Lipoma of right upper extremity] Onset: 03-22-2025 Episodic Other connective tissue disease (2 sources) Arthrodesis status; Translations: [Arthrodesis status] Onset: 05-31-2022 Episodic Other endocrine disorders (17 sources) Polycystic ovaries 03-06-2016 Chronic Other hereditary and degenerative nervous system conditions (17 sources) Restless legs 11-10-2019 Chronic Other injuries and conditions due to external causes (2 sources) Cat bite - wound 02-23-2025 Episodic Other non-traumatic joint disorders (2 sources) Shoulder pain; Translations: [Pain in unspecified shoulder] 10-29-2024 Episodic Other nutritional; endocrine; and metabolic disorders (17 sources) Body mass index 40+ - severely obese 04-12-2019 Chronic Other nutritional; endocrine; and metabolic disorders (2 sources) Obesity, unspecified; Translations: [Obesity, unspecified] Onset: 03-07-2022 Chronic Other nutritional; endocrine; and metabolic disorders (2 sources) Body mass index (BMI) 45.0-49.9, adult; Translations: [Body mass index [BMI] 45.0-49.9, adult] Onset: 03-07-2022 Chronic Other nutritional; endocrine; and metabolic disorders (4 sources) Body mass index (BMI) 50.0-59.9, adult; Translations: [Body mass index [BMI] 50.0-59.9, adult] Onset: 08-24-2024 Chronic Other screening for suspected conditions (not mental disorders or infectious disease) (8 sources) Encounter for screening mammogram for malignant neoplasm of breast; Translations: [Patient encounter status] Onset: 08-24-2024 Episodic Other upper respiratory disease (2 sources) Seasonal allergy; Translations: [Other seasonal allergic rhinitis] 10-29-2024 Chronic Other upper respiratory infections (3 sources) Acute sinusitis; Translations: [Acute sinusitis, unspecified] 10-29-2024 Episodic Residual codes; unclassified (18 sources) Obstructive sleep apnea syndrome; Translations: [Obstructive sleep apnea (adult) (pediatric)] Onset: 08-13-2022 04-09-2019 Chronic Residual codes; unclassified (17 sources) Persistent insomnia 02-22-2020 Chronic Residual codes; unclassified (16 sources) Sleep apnea; Translations: [Sleep apnea, unspecified] 03-06-2016 Chronic Residual codes; unclassified (2 sources) Obstructive sleep apnea (adult) (pediatric); Translations: [Obstructive sleep apnea (adult) (pediatric)] Onset: 03-07-2022 Chronic Rheumatoid arthritis and related disease (20 sources) Rheumatoid arthritis; Translations: [Rheumatoid arthritis, unspecified] Onset: 03-07-2022 03-06-2016 Chronic Skin and subcutaneous tissue infections (3 sources) Cellulitis; Translations: [Cellulitis, unspecified] Onset: 12-01-2021 Episodic Thyroid disorders (20 sources) Hypothyroidism; Translations: [Hypothyroidism, unspecified] Onset: 03-07-2022 03-06-2016 Chronic Unclassified (1 source) Consult Onset: 02-22-2025 Past or Other Problems Problem Classification Problem Date Documented Date Episodic/Chronic Acquired foot deformities (2 sources) Flat foot [pes planus] (acquired), left foot; Translations: [Flat foot [pes planus] (acquired), left foot] Onset: 02-08-2022 Episodic Biliary tract disease (8 sources) Biliary calculus; Translations: [Calculus of gallbladder without cholecystitis without obstruction] Onset: 11-02-2009 11-02-2009 Episodic Complications of surgical procedures or medical care (13 sources) 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; Translations: [Pseudarthrosis after fusion or arthrodesis] Onset: 06-12-2023 04-16-2023 Episodic E Codes: Fall (2 sources) Unspecified fall, initial encounter; Translations: [Unspecified fall, initial encounter] Onset: 03-07-2022 Episodic Fracture of lower limb (2 sources) Unspecified fracture of left foot, subsequent encounter for fracture with nonunion; Translations: [Unspecified fracture of left foot, subsequent encounter for fracture with nonunion] Onset: 04-16-2023 Episodic Genitourinary symptoms and ill-defined conditions (8 sources) Other polyuria; Translations: [Dysuria] Onset: 03-16-2024 Episodic Menopausal disorders (2 sources) Hormone replacement therapy; Translations: [Hormone replacement therapy] Onset: 03-07-2022 Episodic Other aftercare (2 sources) Other supervisor intermediates (current) drug therapy; Translations: [Other supervisor intermediates (current) drug therapy] Onset: 03-07-2022 Episodic Other [...] leg, initial encounter] Onset: 02-08-2022 02-08-2022 Episodic Unclassified (20 sources) Patient encounter status 08-01-2020 Results Test Name Value Interpretation Reference Range Facility CT CARDIAC SCORING WO IV CON TRASTon 05-04-2025 CT CARDIAC SCORING WO IV CONTRAST Interpreted By: Ana Awad, STUDY: CT CARDIAC SCORING WO IV CONTRAST; 05/04/2025 8:28 am INDICATION: Signs/Symptoms:SCREENING. ,Z13.6 Encounter for screening for cardiovascular disorders,E11.9 Type 2 diabetes mellitus without complications COMPARISON: None. ACCESSION NUMBER(S): [id number] ORDERING CLINICIAN: SERGIO JAUREGUI TECHNIQUE: Using prospective ECG gating, CT scan of the coronary arteries was performed without intravenous contrast. Coronary calcium scoring was performed according to the method of Agatston. FINDINGS: The score and distribution of calcium in the coronary arteries is as follows: LM 0 LAD 0 LCx 0 RCA 0 Total 0 The visualized mid/lower ascending thoracic aorta measures 3.6 cm in diameter. The heart is normal in size. No significant pericardial effusion. No gross mediastinal or hilar lymphadenopathy in the included areas. No airspace consolidation or pleural effusion in the included areas. Small calcification along the anteromedial left hemidiaphragm on the most caudal image. Few sub 5 mm calcified granulomas in the left lung. 3 mm noncalcified nodule in the left lower lobe image 47/74. The visualized subdiaphragmatic structures appear intact. IMPRESSION: 1. Coronary artery calcium score of 0*. 2. 3 mm left lung nodule. See below. 3. Few small calcifications in the left chest likely sequela of remote granulomatous infection. *Coronary artery calcium scoring may be helpful in predicting the risk for future coronary heart disease events. According to the [place] [employer] Clinical Expert Consensus Task Force, such testing provides important prognostic information in patients with more than one coronary heart disease risk factor. The coronary artery calcium score correlates with the annual risk of a non-fatal myocardial infarction or coronary heart disease . Coronary artery score Annual Risk 0-99 0.4% 100-399 1.3% >400 2.4% These three breakpoints correspond to lower, intermediate and high risk states for future coronary events. Such information should be used, along with appropriate clinical judgment, to make decisions regarding the intensity of risk factor management strategies to treat blood lipids and to modify other non-lipid coronary risk factors. Reference: Rakan P et al. Circulation. 2007; 115:402-426. MACRO: Incidental Finding: A non-calcified pulmonary nodule/multiple non-calcified pulmonary nodules measuring less than 6 mm, likely benign. (-YCF-) Instructions: No further follow-up is required, however, if the patient has high risk factors for primary lung malignancy, follow-up noncontrast CT scan chest in 12 months may be obtained. (Brayan Martinez et al., Guidelines for management of incidental pulmonary nodules detected on CT images: From the Fleischner Society 2017, Radiology. 2017 Mar;284 (1):228-243.) [email or web address] Signed by: Ana Awad 05/05/2025 1:37 PM Dictation workstation: [id number] [facility] .GFRon 04-19-2025 Estimated Glomerular Filtration Rate 82 ml/min/1.73sqm [facility] Comment on above: Result Comment: Stages of Chronic Kidney Disease (CKD) Stage Description eGFR(ml/min/1.73 sq.m.) CKD 1 Normal kidney function or >=90 normal kindney function with possible kidney damage (ex. Proteinuria) CKD 2 Kidney damage with mild loss 60-89 of kidney function CKD 3a Mild to moderate loss of kidney 45-59 function CKD 3b Moderate to severe loss of 30-44 of kindey function CKD 4 Severe loss of kidney function 15-29 CKD 5 Kidney failure <15 Note: (go live 2024) the eGFR calculation was updated to the 2020 CKD-EPI creatinine equation without a race factor to calculate the eGFR results. Performed By: #### T SH, GFR, A1C, LIPID, CMP, VIDH #### [facility] [address], [place] [address] BMPon 04-19-2025 BUN/Creatinine Ratio 30 ratio High 7-27 [facility] Comment on above: Performed By: #### T SH, GFR, A1C, LIPID, CMP, VIDH #### [place] [address] Calcium [Mass/Vol] 9.8 mg/dL Normal 8.4-10.2 [facility] Comment on above: Performed By: #### T SH, GFR, A1C, LIPID, CMP, VIDH #### [place] [address] Chloride [Moles/Vol] 103 mmol/L Normal 98-107 [facility] Comment on above: Performed By: #### T SH, GFR, A1C, LIPID, CMP, VIDH #### [place] [address] CO2 [Moles/Vol] 29 mmol/L Normal 22-29 [facility] Comment on above: Performed By: #### T SH, GFR, A1C, LIPID, CMP, VIDH #### [place] [address] Creatinine [Mass/Vol] 0.83 mg/dL Normal 0.51-0.[address] [facility] Comment on above: Performed By: #### T SH, GFR, A1C, LIPID, CMP, VIDH #### [place] [address] Electrolyte Balance 7.0 mEq/L Normal 4.0-15.0 [facility] Comment on above: Performed By: #### T SH, GFR, A1C, LIPID, CMP, VIDH #### [place] [address] Glucose [Mass/Vol] 143 mg/dL High 70-105 [facility] Comment on above: Performed By: #### T SH, GFR, A1C, LIPID, CMP, VIDH #### [place] [address] Potassium [Moles/Vol] 4.1 mmol/L Normal 3.5-5.[address] [facility] Comment on above: Performed By: #### T SH, GFR, A1C, LIPID, CMP, VIDH #### [facility] [address], [place] [address] Sodium [Moles/Vol] 139 mmol/L Normal 136-145 [facility] Comment on above: Performed By: #### T SH, GFR, A1C, LIPID, CMP, VIDH #### [facility] [address], [place] [address] Urea nitrogen [Mass/Vol] 25 mg/dL High 7-18 [facility] Comment on above: Performed By: #### T SH, GFR, A1C, LIPID, CMP, VIDH #### [place] [id number] [place], [place] [address] LABORATORYOrdered By: SYSTEM SYSTEM on 04-19-2025 Calcium [Mass/Vol] 9.8 mg/dL Normal 8.4 - 10. 2 mg/dL AO ADM SS Chloride [Moles/Vol] 103 mmol/L Normal 98 - 10 7 mmol/L AO ADM SS CO2 [Moles/Vol] 29 mmol/L Normal 22 - 29 mmol/L AO ADM SS Creatinine [Mass/Vol] 0.83 mg/dL Normal 0.51 - 0.95 mg/dL AO ADM SS Electrolyte Balance 7.0 mEq/L Normal 4.0 - 15 .0 mEq/L AO ADM SS Estimated Glomerular Filtration Rate 82 ml/min/1.73sqm Invalid Interpretation Code AO Chemistry S Comment on above: Interpretive Data: Stages of Chronic Kidney Disease (CKD) Stage Description eGFR(ml/min/1.73 sq.m.) CKD 1 Normal kidney function or >=90 normal kindney function with possible kidney damage (ex. Proteinuria) CKD 2 Kidney damage with mild loss 60-89 of kidney function CKD 3a Mild to moderate loss of kidney 45-59 function CKD 3b Moderate to severe loss of 30-44 of kindey function CKD 4 Severe loss of kidney function 15-29 CKD 5 Kidney failure <15 Note: (go live 2024) the eGFR calculation was updated to the 2020 CKD-EPI creatinine equation without a race factor to calculate the eGFR results. Glucose [Mass/Vol] 143 mg/dL High 70 - 105 mg/dL AO ADM SS Parathyrin.intact [Mass/Vol] 80.4 pg/mL Normal 18.5 - 88.0 pg/mL AH ADM SS Potassium [Moles/Vol] 4.1 mmol/L Normal 3.5 - 5.1 mmol/L AO ADM SS Sodium [Moles/Vol] 139 mmol/L Normal 136 - 145 mmol/L AO ADM SS Urea nitrogen [Mass/Vol] 25 mg/dL High 7 - 18 mg/dL AO ADM SS Urea nitrogen/Creatinine [Mass ratio] 30 ratio High 7 - 27 ratio AO ADM SS PTHon 04-19-2025 PTH, Intact 80.4 pg/mL Normal 18.5-88.0 [facility] Comment on above: Performed By: #### T SH, GFR, A1C, LIPID, CMP, VIDH #### [address] [address] .Auto Diffon 04-12-2025 Basophil, Absolute 0.0 10 3/mcL Normal 0.0-0.3 [facility] Comment on above: Performed By: #### T SH, GFR, A1C, LIPID, CMP, VIDH #### [address] [address] Basophils/100 WBC (Bld) 0.8 % Normal 0.0-2.5 [facility] Comment on above: Performed By: #### T SH, GFR, A1C, LIPID, CMP, VIDH #### [address] [address] Eosinophil, Absolute 0.2 10 3/mcL Normal 0.0-0.7 [facility] Comment on above: Performed By: #### T SH, GFR, A1C, LIPID, CMP, VIDH #### [address] [address] Eosinophils/100 WBC (Bld) 2.6 % Normal 0.0-6.0 [facility] Comment on above: Performed By: #### T SH, GFR, A1C, LIPID, CMP, VIDH #### [address] [address] Lymphocyte, Absolute 1.9 10 3/mcL Normal 0.9-4.3 [facility] Comment on above: Performed By: #### T SH, GFR, A1C, LIPID, CMP, VIDH #### [address] [address] Lymphocytes/100 WBC (Bld) 32.6 % Normal 20.0-40.0 [facility] Comment on above: Performed By: #### T SH, GFR, A1C, LIPID, CMP, VIDH #### [address] [address] Monocyte, Absolute 0.6 10 3/mcL Normal 0.1-1.4 [facility] Comment on above: Performed By: #### T SH, GFR, A1C, LIPID, CMP, VIDH #### [address] [address] Monocytes/100 WBC (Bld) 9.4 % Normal 2.0-13.0 [facility] Comment on above: Performed By: #### T SH, GFR, A1C, LIPID, CMP, VIDH #### [address] [address] Neutrophils/100 WBC (Bld) 54.6 % Normal 50.0-75.0 [facility] Comment on above: Performed By: #### T SH, GFR, A1C, LIPID, CMP, VIDH #### [address] [address] .GFRon 04-12-2025 Estimated Glomerular Filtration Rate 99 ml/min/1.73sqm Normal [facility] Comment on above: Result Comment: Stages of Chronic Kidney Disease (CKD) Stage Description eGFR(ml/min/1.73 sq.m.) CKD 1 Normal kidney function or >=90 normal kindney function with possible kidney damage (ex. Proteinuria) CKD 2 Kidney damage with mild loss 60-89 of kidney function CKD 3a Mild to moderate loss of kidney 45-59 function CKD 3b Moderate to severe loss of 30-44 of kindey function CKD 4 Severe loss of kidney function 15-29 CKD 5 Kidney failure <15 Note: (go live 2024) the eGFR calculation was updated to the 2020 CKD-EPI creatinine equation without a race factor to calculate the eGFR results. Performed By: #### T SH, GFR, A1C, LIPID, CMP, VIDH #### [address] [address] .NEUABSon 04-12-2025 Neutrophil, Absolute 3.2 10 3/mcL Normal 2.3-8.1 [facility] Comment on above: Performed By: #### T SH, GFR, A1C, LIPID, CMP, VIDH #### [place] [id number] A1Con 04-12-2025 Glucose [Mass/Vol] 189 mg/dL Normal [facility] Comment on above: Result Comment: Anyi mated Average Glucose calculated by equation ((28.7xA1C)-46.7) Estimated average glucose (eAG) is a calculated value from Hemoglobin A1C and is asset protection representative of the average blood glucose level in the last 2-3 month period. Normal range: less than 114 mg/dL Performed By: #### T SH, GFR, A1C, LIPID, CMP, VIDH #### [place] [address] HbA1c (Bld) [Mass fraction] 8.2 % High 4.3-6.4 [facility] Comment on above: Performed By: #### T SH, GFR, A1C, LIPID, CMP, VIDH #### [place] [id number] CBCon 04-12-2025 Erythrocyte distribution width (RBC) [Ratio] 14.8 % Normal 11.5-15.5 [facility] Comment on above: Performed By: #### T SH, GFR, A1C, LIPID, CMP, VIDH #### [place] [address] Hematocrit (Bld) [Volume fraction] 42.7 % Normal 34.0-46.0 [facility] Comment on above: Performed By: #### T SH, GFR, A1C, LIPID, CMP, VIDH #### [place] [address] Hgb 14.1 G/dL Normal 12.0-16.0 [facility] Comment on above: Performed By: #### T SH, GFR, A1C, LIPID, CMP, VIDH #### [address] [address] MCH (RBC) [Entitic mass] 26.9 pg Low 27.0-33.0 [facility] Comment on above: Performed By: #### T SH, GFR, A1C, LIPID, CMP, VIDH #### [address] [address] MCHC 32.9 G/dL Normal 32.0-36.0 [facility] Comment on above: Performed By: #### T SH, GFR, A1C, LIPID, CMP, VIDH #### [place] [address] MCV (RBC) [Entitic vol] 81.6 fL Normal 80.0-99.0 [facility] Comment on above: Performed By: #### T SH, GFR, A1C, LIPID, CMP, VIDH #### [place] [address] Platelet 212 10 3/mcL Normal 150-450 [facility] Comment on above: Performed By: #### T SH, GFR, A1C, LIPID, CMP, VIDH #### [place] [address] Platelet mean volume (Bld) [Entitic vol] 7.9 fL Normal 6.6-10.5 [facility] Comment on above: Performed By: #### T SH, GFR, A1C, LIPID, CMP, VIDH #### [place] [address] RBC 5.24 10 6/mcL Normal 4.10-5.30 [facility] Comment on above: Performed By: #### T SH, GFR, A1C, LIPID, CMP, VIDH #### [place] [id number] WBC 5.9 10 3/mcL Normal 4.5-10.8 [facility] Comment on above: Performed By: #### T SH, GFR, A1C, LIPID, CMP, VIDH #### [place] [address] CMPon 04-12-2025 Albumin Level 3.9 G/dL Normal 3.5-5.0 [facility] Comment on above: Performed By: #### T SH, GFR, A1C, LIPID, CMP, VIDH #### [place] [address] Albumin/Globulin [Mass ratio] 1.1 {ratio} Normal 1.1-2.5 [facility] Comment on above: Performed By: #### T SH, GFR, A1C, LIPID, CMP, VIDH #### [place] [address] ALP [Catalytic activity/Vol] 100 U/L Normal 40-135 [facility] Comment on above: Performed By: #### T SH, GFR, A1C, LIPID, CMP, VIDH #### [place] [address] ALT [Catalytic activity/Vol] 32 U/L Normal 14-59 [facility] Comment on above: Performed By: #### T SH, GFR, A1C, LIPID, CMP, VIDH #### [place] [address] AST [Catalytic activity/Vol] 28 U/L Normal 10-40 [facility] Comment on above: Performed By: #### T SH, GFR, A1C, LIPID, CMP, VIDH #### [place] [address] Bili Total 0.3 mg/dL Normal 0.2-1.0 [facility] Comment on above: Result Comment: Use of this assay is not recommended for patients undergoing treatment with eltrombopag due to the potential for falsely elevated results. Performed By: #### T SH, GFR, A1C, LIPID, CMP, VIDH #### [place] [address] BUN/Creatinine Ratio 32 ratio High 7-27 [facility] Comment on above: Performed By: #### T SH, GFR, A1C, LIPID, CMP, VIDH #### [place] [id number] Calcium [Mass/Vol] 10.4 mg/dL High 8.4-10.2 [facility] Comment on above: Performed By: #### T SH, GFR, A1C, LIPID, CMP, VIDH #### [address] [address] Chloride [Moles/Vol] 104 mmol/L Normal 98-107 [facility] Comment on above: Performed By: #### T SH, GFR, A1C, LIPID, CMP, VIDH #### [address] [address] CO2 [Moles/Vol] 26 mmol/L Normal 22-29 [facility] Comment on above: Performed By: #### T SH, GFR, A1C, LIPID, CMP, VIDH #### [address] [address] Creatinine [Mass/Vol] 0.71 mg/dL Normal 0.51-0.[address] [facility] Comment on above: Performed By: #### T SH, GFR, A1C, LIPID, CMP, VIDH #### [address] [address] Electrolyte Balance 10.0 mEq/L Normal 4.0-15.0 [facility] Comment on above: Performed By: #### T SH, GFR, A1C, LIPID, CMP, VIDH #### [address] [address] Globulin 3.5 G/dL Normal 2.7-4.4 [facility] Comment on above: Performed By: #### T SH, GFR, A1C, LIPID, CMP, VIDH #### [address] [address] Glucose [Mass/Vol] 128 mg/dL High 70-105 [facility] Comment on above: Performed By: #### T SH, GFR, A1C, LIPID, CMP, VIDH #### [address] [address] Potassium [Moles/Vol] 4.1 mmol/L Normal 3.5-5.[address] [facility] Comment on above: Performed By: #### T SH, GFR, A1C, LIPID, CMP, VIDH #### [place] [address] [place], [place] [address] Sodium [Moles/Vol] 140 mmol/L Normal 136-145 [facility] Comment on above: Performed By: #### T SH, GFR, A1C, LIPID, CMP, VIDH #### [address] [address] Total Protein 7.4 G/dL Normal 6.4-8.2 [facility] Comment on above: Performed By: #### T SH, GFR, A1C, LIPID, CMP, VIDH #### [address] [address] Urea nitrogen [Mass/Vol] 23 mg/dL High 7-18 [facility] Comment on above: Performed By: #### T SH, GFR, A1C, LIPID, CMP, VIDH #### [address] [address] LABORATORYOrdered By: SYSTEM SYSTEM on 04-12-2025 Basophils (Bld) [#/Vol] 0.0 103/mcL Normal 0.0 - 0.3 10^3/mcL AO Workflow SS Basophils/100 WBC (Bld) 0.8 % Normal 0.0 - 2.5 % AO Workflow SS Eosinophil, Absolute 0.2 103/mcL Normal 0.0 - 0 .7 10^3/mcL AO Workflow SS Eosinophils/100 WBC (Bld) 2.6 % Normal 0.0 - 6.0 % AO Workflow SS Erythrocyte distribution width (RBC) [Ratio] 14.8 % Normal 11.5 - 15.5 % AO Workflow SS Hematocrit (Bld) [Volume fraction] 42.7 % Normal 34.0 - 46.0 % AO Workflow SS Hemoglobin (Bld) [Mass/Vol] 14.1 G/dL Normal 12.0 - 16.0 G/dL AO Workflow SS Lymphocytes (Bld) [#/Vol] 1.9 103/mcL Normal 0.9 - 4.3 10^3/mcL AO Workflow SS Lymphocytes/100 WBC (Bld) 32.6 % Normal 20.0 - 40.0 % AO Workflow SS MCH (RBC) [Entitic mass] 26.9 pg Low 27.0 - 33.0 pg AO Workflow SS MCHC 32.9 G/dL Normal 32.0 - 36.0 G/dL AO Workflow SS MCV (RBC) [Entitic vol] 81.6 fL Normal 80.0 - 99.0 fL AO Workflow SS Monocytes (Bld) [#/Vol] 0.6 103/mcL Normal 0.1 - 1.4 10^3/mcL AO Workflow SS Monocytes/100 WBC (Bld) 9.4 % Normal 2.0 - 13.0 % AO Workflow SS Neutrophils (Bld) [#/Vol] 3.2 103/mcL Normal 2.3 - 8.1 10^3/mcL AO Workflow SS Neutrophils/100 WBC (Bld) 54.6 % Normal 50.0 - 75.0 % AO Workflow SS Platelet mean volume (Bld) [Entitic vol] 7.9 fL Normal 6.6 - 10.5 fL AO Workflow SS Platelets (Bld) [#/Vol] 212 103/mcL Normal 150 - 450 10^3/mcL AO Workflow SS RBC (Bld) [#/Vol] 5.24 106/mcL Normal 4.10 - 5.3 0 10^6/mcL AO Workflow SS WBC (Bld) [#/Vol] 5.9 103/mcL Normal 4.5 - 10.8 10^3/mcL AO Workflow SS Albumin BCP dye [Mass/Vol] 3.9 G/dL Normal 3.5 - 5.0 G/dL AO ADM SS Albumin/Globulin [Mass ratio] 1.1 {ratio} Normal 1.1 - 2.5 ratio AO ADM SS ALP [Catalytic activity/Vol] 100 U/L Normal 40 - 135 U/L AO ADM SS ALT With P-5'-P [Catalytic activity/Vol] 32 U/L Normal 14 - 59 U/L AO ADM SS AST With P-5'-P [Catalytic activity/Vol] 28 U/L Normal 10 - 40 U/L AO ADM SS Bilirubin [Mass/Vol] 0.3 mg/dL Normal 0.2 - 1 .0 mg/dL AO ADM SS Comment on above: Interpretive Data: U se of this assay is not recommended for patients undergoing treatment with eltrombopag due to the potential for falsely elevated results. Calcium [Mass/Vol] 10.4 mg/dL High 8.4 - 10. 2 mg/dL AO ADM SS Chloride [Moles/Vol] 104 mmol/L Normal 98 - 10 7 mmol/L AO ADM SS CO2 [Moles/Vol] 26 mmol/L Normal 22 - 29 mmol/L AO ADM SS Creatinine [Mass/Vol] 0.71 mg/dL Normal 0.51 - 0.95 mg/dL AO ADM SS Electrolyte Balance 10.0 mEq/L Normal 4.0 - 15 .0 mEq/L AO ADM SS Estimated Glomerular Filtration Rate 99 ml/min/1.73sqm Invalid Interpretation Code AO Chemistry S Comment on above: Interpretive Data: Stages of Chronic Kidney Disease (CKD) Stage Description eGFR(ml/min/1.73 sq.m.) CKD 1 Normal kidney function or >=90 normal kindney function with possible kidney damage (ex. Proteinuria) CKD 2 Kidney damage with mild loss 60-89 of kidney function CKD 3a Mild to moderate loss of kidney 45-59 function CKD 3b Moderate to severe loss of 30-44 of kindey function CKD 4 Severe loss of kidney function 15-29 CKD 5 Kidney failure <15 Note: (go live 2024) the eGFR calculation was updated to the 2020 CKD-EPI creatinine equation without a race factor to calculate the eGFR results. Globulin 3.5 G/dL Normal 2.7 - 4.4 G/dL AO ADM SS Glucose [Mass/Vol] 128 mg/dL High 70 - 105 mg/dL AO ADM SS Glucose [Mass/Vol] 189 mg/dL Invalid Interpretation Code AO Chemistry S Comment on above: Interpretive Data: E stimated average glucose (eAG) is a calculated value from Hemoglobin A1C and is asset protection representative of the average blood glucose level in the last 2-3 month period. Normal range: less than 114 mg/dL HbA1c (Bld) [Mass fraction] 8.2 % High 4.3 - 6.4 % AO ADM SS Potassium [Moles/Vol] 4.1 mmol/L Normal 3.5 - 5.1 mmol/L AO ADM SS Protein [Mass/Vol] 7.4 G/dL Normal 6.4 - 8.2 G/dL AO ADM SS Sodium [Moles/Vol] 140 mmol/L Normal 136 - 145 mmol/L AO ADM SS TSH Qn 0.87 m[IU]/L Normal 0.36 - 3.74 mcIU/mL AO ADM SS Urea nitrogen [Mass/Vol] 23 mg/dL High 7 - 18 mg/dL AO ADM SS Urea nitrogen/Creatinine [Mass ratio] 32 ratio High 7 - 27 ratio AO ADM SS LABORATORYOrdered By: Kam Gomes on 04-12-2025 Cholesterol [Mass/Vol] 186 mg/dL Normal 0 - 2 00 mg/dL AO ADM SS Comment on above: Interpretive Data: C holesterol Reference Interval: Less than 200 Desirable 200-239 Borderline high risk 240 and above High risk Cholesterol in HDL [Mass/Vol] 62 mg/dL High 40 - 60 mg/dL AO ADM SS Cholesterol in LDL [Mass/Vol] 107 mg/dL Normal 0 - 130 mg/dL AO ADM SS Triglyceride [Mass/Vol] 86 mg/dL Normal 0 - 150 mg/dL AO ADM SS Comment on above: Interpretive Data: T riglyceride Reference Interval: Less than 150 Normal 150-199 Borderline high risk 200-499 High risk 500 or higher Very high risk LIPIDon 04-12-2025 Cholesterol [Mass/Vol] 186 mg/dL Normal 0-200 [facility] Comment on above: Result Comment: Chol esterol Reference Interval: Less than 200 Desirable 200-239 Borderline high risk 240 and above High risk Performed By: #### T SH, GFR, A1C, LIPID, CMP, VIDH #### [address] [address] Cholesterol in HDL [Mass/Vol] 62 mg/dL High 40-60 [facility] Comment on above: Performed By: #### T SH, GFR, A1C, LIPID, CMP, VIDH #### [address] [address] Cholesterol in LDL [Mass/Vol] 107 mg/dL Normal 0-130 [facility] Comment on above: Performed By: #### T SH, GFR, A1C, LIPID, CMP, VIDH #### [address] [address] Triglyceride [Mass/Vol] 86 mg/dL Normal 0-150 [facility] Comment on above: Result Comment: Trig lyceride Reference Interval: Less than 150 Normal 150-199 Borderline high risk 200-499 High risk 500 or higher Very high risk Performed By: #### T SH, GFR, A1C, LIPID, CMP, VIDH #### [place] [address] [place], [place] [address] TSHon 04-12-2025 TSH Qn 0.87 m[IU]/L Normal 0.36-3.74 [facility] Comment on above: Performed By: #### T SH, GFR, A1C, LIPID, CMP, VIDH #### [place] [address] [place], [place] [address] CNNURSEon 04-05-2025 CNNURSE Nurse Visit (GENSWS) ----- PRAVIN MELO ([id number]) 1970 F Date Time Provider Department 04/05/25 2:00 PM [facility] During your visit today, we recorded the following information about you: Edinson Sommers RN 04/05/2025 2:43 PM Signed Excision site to rt upper arm. Well approximated. No sutures at site. No redness swelling, pus or drainage. Denies fever T 97.7. Dr Boyle confirmed lab report of lipoma. Pt informed of same. RLM Allergies As of Date: 04/05/2025 Noted Allergy Reaction SULFA (SULFONAMIDE ANTIBIOTICS) 02/22/2025 2 - Rash Date Reviewed: 02/22/2025 Reviewed by: Sophia Sutherland, CHARLES - Fully Assessed Primary Visit Diagnosis:Visit for wound check [Z51.89] Prescriptions as of 04/05/2025 - hydrOXYchloroQUINE (PLAQUENIL) 200 mg tablet Take 200 mg by mouth two times a day. - RYBELSUS 7 mg tablet Take 7 mg by mouth daily before breakfast. - FARXIGA 10 mg tablet Take 1 tablet by mouth once daily. - XELJANZ XR 11 mg tablet, extended release Take 11 mg by mouth once daily. - meloxicam (MOBIC) 15 mg tablet Take 1 tablet by mouth once daily. - DULoxetine (CYMBALTA) 60 mg capsule Take 60 mg by mouth daily at bedtime. - levothyroxine sodium(SYNTHROID 137 MCG TAB) Take one(1) tablet daily. - montelukast sodium(SINGULAIR 10 MG TAB) Take one(1) tablet daily at bedtime. - LISINOPRIL 10 MG TAB Take one(1) tablet daily. - esomeprazole mag trihydrate(NEXIUM 40 MG CAP) Take one(1) capsule daily. - brompheniramine maleate(LODRANE 24 EXTENDED RELEASE 12 MG 24 HR CAP) 1-2 tabs in evening - spironolact/hydrochloroth iazid(ALDACTAZIDE 50 MG-50 MG TAB) Take one(1) tablet daily. in evening Problem List As Of Date 04/05/2025 Noted Resolved Cholelithiasis [K80.20] 11/02/2009 Acute Cholecystitis [K81.0] 11/02/2009 Encounter Status:Closed by EDINSON SOMMERS on 04/05/25 Normal [facility] Lyme Antibodies,Patrice Rausch Lyme Additional Comment Normal . [facility] Comment on above: Result Comment: Per CDC criteria, the Lyme IgG Immunoblot is interpreted as positive if IgG-class antibodies are detected to 5 or more B. burgdorferi proteins, and the Lyme IgM Immunoblot is interpreted as positive if IgM-class antibodies are detected to 2 or more B. burgdorferi proteins. Immunoblot patterns not meeting these criteria should not be interpreted as positive. Epitopes from certain B. burgdorferi proteins (e.g., p41) are conserved across other bacteria, which may lead to the detection of IgM-and/or IgG class antibodies on the Lyme disease immunoblots in patients without Lyme disease. Immunoblot should only be ordered on specimens that are positive or equivocal by an FDA-licensed Lyme disease antibody screening test (e.g., EIA). Results of the Lyme IgM immunoblot should not be considered in patients with 30 or more days of symptoms. Performed at: [address] [id number] Data Modeling Architect: Rex Khan MD, Phone: [phone] Performed By: #### L 500.4050, L502.0500, L506.1000, L501.9985, L100.0100, L501.9520 #### [facility] [address] [place], [address] LYME IgG INTERP Negative Normal Negative [facility] Comment on above: Performed By: #### L 500.4050, L502.0500, L506.1000, L501.9985, L100.0100, L501.9520 #### [facility] [address] [place], [address] LYME IgM INTERP Negative Normal Negative [facility] Comment on above: Result Comment: Timothy bone Note: Lyme immunoblot alone is not recommended for the diagnosis of Lyme disease. Current guidelines recommend the use of a two-tiered approach to Lyme serology testing to improve the sensitivity and specificity of testing. [facility] offers test code 960138 Lyme Disease Serology with Reflex to aid in the diagnosis of Lyme Disease. Performed By: #### L 500.4050, L502.0500, L506.1000, L501.9985, L100.0100, L501.9520 #### [facility] [address] [place], [address] P18 Ab Absent Normal . [facility] Comment on above: Performed By: #### L 500.4050, L502.0500, L506.1000, L501.9985, L100.0100, L501.9520 #### [facility] [address] [place], [address] P23 Ab Absent Normal . [facility] Comment on above: Performed By: #### L 500.4050, L502.0500, L506.1000, L501.9985, L100.0100, L501.9520 #### [facility] [address] [place], [address] P28 Ab Absent Normal . [facility] Comment on above: Performed By: #### L 500.4050, L502.0500, L506.1000, L501.9985, L100.0100, L501.9520 #### [facility] [address] [place], [address] P30 Ab Absent Normal . [facility] Comment on above: Performed By: #### L 500.4050, L502.0500, L506.1000, L501.9985, L100.0100, L501.9520 #### [facility] [address] [place], [address] P39 Ab Absent Normal . [facility] Comment on above: Performed By: #### L 500.4050, L502.0500, L506.1000, L501.9985, L100.0100, L501.9520 #### [facility] [address] [place], [address] P41 Ab Absent Normal . [facility] Comment on above: Performed By: #### L 500.4050, L502.0500, L506.1000, L501.9985, L100.0100, L501.9520 #### [facility] [address] [place], [address] P45 Ab Absent Normal . [facility] Comment on above: Performed By: #### L 500.4050, L502.0500, L506.1000, L501.9985, L100.0100, L501.9520 #### [facility] [address] [place], [address] P58 Ab Present Normal . [facility] Comment on above: Performed By: #### L 500.4050, L502.0500, L506.1000, L501.9985, L100.0100, L501.9520 #### [facility] [address] [place], [address] P66 Ab Absent Normal . [facility] Comment on above: Performed By: #### L 500.4050, L502.0500, L506.1000, L501.9985, L100.0100, L501.9520 #### [facility] [address] [place], [address] P93 Ab Absent Normal . [facility] Comment on above: Performed By: #### L 500.4050, L502.0500, L506.1000, L501.9985, L100.0100, L501.9520 #### [facility] [address] [place], [place], [id number] CNOVon 03-22-2025 CNOV Office Visit ([facility] ) ----- PRAVIN MELO ([id number]) 1970 F Date Time Provider Department 03/22/25 3:00 PM DONTE BOYLE During your visit today, we recorded the following information about you: Edinson Sommers RN 03/22/2025 3:21 PM Signed UNIVERSAL PROTOCOL / SAFETY CHECKLIST Procedure to be Performed: Excision of uncertain Skin right upper arm Sign In: A Moment of CARE was completed. Appropriate PPE (Personal Protective Equipment) worn by all providers involved with the procedure. Special equipment not required. Patient/Surrogate Stated/Verified: Patient name, Date of , Relevant allergies, and The intended procedure Time Out: Relevant labs, photos, and/or imaging studies have been reviewed. Intended patient and procedure match the source document(s) (e.g. consent, HANDP, associated studies [imaging, pathology]) match the intended patient and procedure. Consent obtained and matches the intended procedure. Yes. Correct side/site has been marked and visible. Medications required for this procedure are verified. Fire risk assessed and is not applicable. Implants: are not applicable. Sign Out: Specimens are all correctly labeled and sent. All instruments, equipment, possible retained foreign bodies are accounted for. Yes. The post-procedure plan of care has been communicated to the patient or surrogate. Edinson Sommers RN 03/22/2025 3:30 PM Addendum The following instructions are important for you related to your office visit today with the [facility]. Instructions After SKIN EXCISION-STERI STRIPS You can remove the dressing in two days. If the dressing becomes soaked or had significant drainage, the dressing should be changed. If there is minor bleeding from this skin edge, you should hold pressure on the incision until the bleeding stops. If there is continued bleeding, you should contact our office immediately. You do not need to leave a dressing on the wound after two days. If the wound shows signs of redness, inflammation, or purulent drainage, you should contact our office immediately. You should keep the wound dry for the first two days. After that time, you may wash the wound with gentle soap and water. The wound should not be immersed in a pool, bathtub, or even hot tub. We prefer to check the incision and remove the steristrips in our office when ready. Please make an appointment to return to our office in 2 weeks. Please do not remove the steristrips yourself without approval from our office. If you note any additional difficulties, questions, or concerns, you should contact our office immediately @ [phone] and ask to be transferred to the General Surgery department. Donte Boyle MD 03/22/2025 3:37 PM Signed Preoperative diagnosis: 3 cm subcutaneous lesion to right arm Postoperative diagnosis: The same Procedure: Excision of a 3 cm subcutaneous lesion to right arm Surgeon: Carroll Procedure: Right arm posteriorly was sterilely prepped and draped in the usual fashion. 1% lidocaine plain was injected. A 3-1/2 cm incision was made. Dissection was carried down below Angelika's fascia a fatty lesion was identified and was removed in its entirety. I sent the pathology for permanent sectioning. I brought the wound together with deep dermal stitches of 3-0 Vicryl. Steri-Strips were applied. Sterile dressings were applied. Patient tolerated the procedure well. Allergies As of Date: 03/22/2025 Noted Allergy Reaction SULFA (SULFONAMIDE ANTIBIOTICS) 02/22/2025 2 - Rash Date Reviewed: 02/22/2025 Reviewed by: Sophia Sutherland RN - Fully Assessed Primary Visit Diagnosis:Lipoma of right upper extremity [D17.21] Order(s):SURGICAL PATHOLOGY [[id number]] Order #: [id number]. #:[id number] Prescriptions as of 03/22/2025 - hydrOXYchloroQUINE (PLAQUENIL) 200 mg tablet Take 200 mg by mouth two times a day. - RYBELSUS 7 mg tablet Take 7 mg by mouth daily before breakfast. - FARXIGA 10 mg tablet Take 1 tablet by mouth once daily. - XELJANZ XR 11 mg tablet, extended release Take 11 mg by mouth once daily. - meloxicam (MOBIC) 15 mg tablet Take 1 tablet by mouth once daily. - DULoxetine (CYMBALTA) 60 mg capsule Take 60 mg by mouth daily at bedtime. - levothyroxine sodium(SYNTHROID 137 MCG TAB) Take one(1) tablet daily. - montelukast sodium(SINGULAIR 10 MG TAB) Take one(1) tablet daily at bedtime. - LISINOPRIL 10 MG TAB Take one(1) tablet daily. - esomeprazole mag trihydrate(NEXIUM 40 MG CAP) Take one(1) capsule daily. - brompheniramine maleate(LODRANE 24 EXTENDED RELEASE 12 MG 24 HR CAP) 1-2 tabs in evening - spironolact/hydrochloroth iazid(ALDACTAZIDE 50 MG-50 MG TAB) Take one(1) tablet daily. in evening Problem List As Of Date 03/22/2025 Noted Resolved Cholelithiasis [K80.20] 11/02/2009 Acute Ch (more content not included)... Normal [facility] Pathology biopsy report Jimbo (Tiss)on 03-22-2025 AP DISCLAIMER Normal [facility] Comment on above: Order Comment: Speci men Type: TISSUE SPECIMEN Ordering Facility: [facility] Address: [address] [place] [address] Result Comment: Nayana lutz Developed Test (LDT) Disclaimer: Performance characteristics of immunohistochemical, immunofluorescent, and chromogenic in-situ hybridization tests have been determined by the performing laboratory within [facility]'s Sergio Valladares Pathology and Laboratory Medicine Department ([facility], [facility], [facility], [facility], [facility], [facility], or [facility]) in a manner consistent with CLIA requirements. One or more of these tests may not have been cleared or approved by the FDA. RT[facility]M is regulated under CLIA as qualified to perform high-complexity testing. These tests are used for clinical purposes. These should not be regarded as investigational or for research. Positive and negative controls stain appropriately. Performed By: #### 6 6121-5 #### [facility] CLIA [id number] [address] [place] [address] [place] CASE REPORT Normal [facility] Comment on above: Order Comment: Speci men Type: TISSUE SPECIMEN Ordering Facility: [facility] Address: [address] [place] [address] Result Comment: Surg ica Pathology Report Case: [id number] Authorizing Provider: Donte Boyle MD Collected: 03/22/2025 03:20 PM Ordering Location: General Surgery Received: 03/23/2025 08:38 AM Pathologist: Jose Burns MD Specimen: Lipoma, rt upper arm Performed By: #### 6 6121-5 #### [facility] CLIA [id number] [address] [place] [address] [place] CLINICAL HISTORY lipoma Normal [facility] Comment on above: Order Comment: Speci men Type: TISSUE SPECIMEN Ordering Facility: [facility] Address: [address] [place] [address] Result Comment: Comm ent: rt upper arm Performed By: #### 6 6121-5 #### [facility] CLIA [id number] [address] [place] [address] [place] FINAL DIAGNOSIS Normal [facility] Comment on above: Order Comment: Speci men Type: TISSUE SPECIMEN Ordering Facility: [facility] Address: [address] [place] [address] Result Comment: A. S oft tissue, right upper arm, excision: - Lipoma. at 1418 EDT Performed By: #### 6 6121-5 #### [facility] CLIA [id number] [address] [place] [address] [place] FINAL PERFORMING LAB Normal [facility] Comment on above: Order Comment: Speci men Type: TISSUE SPECIMEN Ordering Facility: [facility] Address: [address] [place] [address] Result Comment: Diag nostic interpretation performed at: [facility], [address] [place] [address] CLIA# [id number] Django Developer: Suraj Newberry MD Performed By: #### 6 6121-5 #### [facility] CLIA [id number] [address] [place] [address] OF [place] GROSS DESCRIPTION A. Lipoma Normal [facility] Comment on above: Order Comment: Speci men Type: TISSUE SPECIMEN Ordering Facility: [facility] Address: [address] [place] [address] Result Comment: Rece ived in formalin labeled as lipoma RT upper arm is a castillo, partially encapsulated soft tissue segment measuring 6 x 3.5 x 2 cm. Sectioning reveals castillo, glistening homogeneous cut surfaces. Mother Baby Rn sections are submitted in 2 cassettes (2 sections in each). Gross examination performed at [facility], [address] [place] [address] March 23, 2025 4:06 PM Performed By: #### 6 6121-5 #### [facility] CLIA [id number] [address] [place] [address] [place] Syphilis Antibodieson 2024 Syphilis Abs Non-Reactive Normal Nonreactive [facility] Comment on above: Order Comment: FAX R ESULTS TO [phone] Performed By: #### L 500.4050, L502.0500, L506.1000, L501.9985, L100.0100, L501.9520 #### [facility] [place], [address] XR FOREARM 2 VIEWS LEFTon XR FOREARM 2 VIEWS LEFT ORIGINAL EXAMINATION: TWO XRAY VIEWS OF THE LEFT FOREARM02/23/2025 11:49 am COMPARISON: None HISTORY: ORDERING SYSTEM PROVIDED HISTORY: Reason for Exam: cat bite, FINDINGS: No fracture, lytic process or other acute skeletal abnormality is seen. No soft tissue gas or radiopaque foreign body. IMPRESSION: No acute skeletal abnormality. Interpreted by: Ortiz Rios MD Preliminary Report By: Ortiz Rios MD Electronically signed By Ortiz Rios MD Dictated Date: 02/24/2025 9:24:41 AM Prelim Date: 02/24/2025 9:25:21 AM Sign Date: 02/24/2025 9:25:21 AM Ordering Provider: [facility]BIE [facility] Office Visit (GENSWS ) ----- PRAVIN MELO ([id number]) 1970 F Date Time Provider Department 02/22/25 3:45 PM [facility] During your visit today, we recorded the following information about you: Temperature Pulse Blood pressure Weight 97.1 degrees 107/minute 136/84 130 kg Height 1.651 m Donte Boyle MD 02/23/2025 7:35 AM Signed HISTORY AND PHYSICAL Pravin Melo 1970 REFERRING PHYSICIAN: No ref. provider found CHIEF COMPLAINT: Consult (Lipoma right upper back) HPI: Pravin Melo is a 55-year-old female presenting for evaluation of a lipoma. Pravin reports having a lipoma for several years, which has recently become bothersome. Approximately 1.5 years ago, she considered having it removed but did not follow through with scheduling an appointment. The lipoma causes discomfort, particularly when swimming, leading to an aching sensation. She inquired about removal during a recent visit with another clinician, who advised that the lipoma was too large for simple excision and recommended a general surgery consultation. 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 Right PCOS (polycystic ovarian syndrome) Sleep apnea Thyroid nodule PAST SURGICAL HISTORY Procedure Laterality Date ARTHROSCOPY KNEE DIAGNOSTIC W/WO SYNOVIAL BX SPX 2007 Arthroscopy, knee DELIVERY ONLY 1988 , low transverse DELIVERY ONLY 1987 , low transverse DILATION AND CURETTAGE DXAND/THER NONOBSTETRIC 1991,2006 Dilation AND curettage LAPS ABD PRTMANDOMENTUM DX W/WO SPEC BR/WA SPX 2000 Laparoscopy LAPS SURG CHOLECYSTECTOMY W/CHOLANGIOGRAPHY 10/27/09 LIG/TRNSXJ FLP TUBE ABDL/VAG APPR UNI/BI 1992 Tubal ligation PAST SURGICAL HISTORY OF 2006 uterine ablation Current Outpatient Medications Medication Sig hydrOXYchloroQUINE (PLAQUENIL) 200 mg tablet Take 200 mg by mouth two times a day. RYBELSUS 7 mg tablet Take 7 mg by mouth daily before breakfast. FARXIGA 10 mg tablet Take 1 tablet by mouth once daily. XELJANZ XR 11 mg tablet, extended release Take 11 mg by mouth once daily. meloxicam (MOBIC) 15 mg tablet Take 1 tablet by mouth once daily. DULoxetine (CYMBALTA) 60 mg capsule Take 60 mg by mouth daily at bedtime. levothyroxine sodium(SYNTHROID 137 MCG TAB) Take one(1) tablet daily. LISINOPRIL 10 MG TAB Take one(1) tablet daily. montelukast sodium(SINGULAIR 10 MG TAB) Take one(1) tablet daily at bedtime. (Patient not taking: Reported on 02/22/2025) esomeprazole mag trihydrate(NEXIUM 40 MG CAP) Take one(1) capsule daily. (Patient not taking: Reported on 02/22/2025) brompheniramine maleate(LODRANE 24 EXTENDED RELEASE 12 MG 24 HR CAP) 1-2 tabs in evening (Patient not taking: Reported on 02/22/2025) spironolact/hydrochloroth iazid(ALDACTAZIDE 50 MG-50 MG TAB) Take one(1) tablet daily. in evening (Patient not taking: Reported on 02/22/2025) No current facility-administered medications for this visit. ALLERGIES: Sulfa (Sulfonamide Antibiotics) PERSONAL HISTORY: Social History Tobacco Use Smoking status: Never Smokeless tobacco: Never Vaping Use Vaping status: Never Used Substance Use Topics Alcohol use: No Drug use: No FAMILY HISTORY: FAMILY HISTORY Problem Relation Age of Onset Hypertension Mother Melanoma Father Diabetes Father Hypertension Father Breast Cancer Paternal Aunt REVIEW OF SYMPTOMS: The review of systems data was entered by the nurse and reviewed by me There are no exam notes on file for this visit. PHYSICAL EXAMINATION: General: The patient is 55 year old female, well nourished, well hydrated in no acute distress. The patient is oriented to time, place, and person. VITALS: Blood pressure 136/84, pulse 107, temperature 36.2 ?C (97.1 ?F), height 165.1 cm (5' 5), weight 130 kg (286 lb 11.2 oz), SpO2 97%. HEENT: Normal cephalic, ataumatic, pupils are equally round, sclera are anicteric, mucous membranes are moist, oropharynx is clear. Neck has no masses, asymmetry or lymphadenopathy. Thyroid is unremarkable. Respiratory: Clear to auscultation and percussion. Normal respiratory excursion and pattern. Cardiac: Examination is regular rate and rhythm. Abdominal exam: Soft, nontender, with no palpable masses. No hepatosplenomegaly. No palpable hernias. Rectal exam: exam deferred Extremities: no clubbing, cyanosis or edema. No adenopathy. Other: Approximately a 2 cm subcutaneous fatty lesion in the right upper arm. Nontender to touch. LABORATORY VALUES: As Noted RADIOLOGIC STUDIES: As Noted Assessment IMPRESSION: Benign lipomatous neoplasm of sk (more content not included)... Normal [facility] .Auto Diffon 02-13-2025 Basophil, Absolute 0.1 10 3/mcL Normal 0.0-0.3 [facility] Comment on above: Performed By: #### T SH, GFR, A1C, LIPID, CMP, VIDH #### [place] [address] [place] [address] Basophils/100 WBC (Bld) 0.9 % Normal 0.0-2.5 [facility] Comment on above: Performed By: #### T SH, GFR, A1C, LIPID, CMP, VIDH #### [address] [address] Eosinophil, Absolute 0.2 10 3/mcL Normal 0.0-0.7 [facility] Comment on above: Performed By: #### T SH, GFR, A1C, LIPID, CMP, VIDH #### [address] [address] Eosinophils/100 WBC (Bld) 2.5 % Normal 0.0-6.0 [facility] Comment on above: Performed By: #### T SH, GFR, A1C, LIPID, CMP, VIDH #### [address] [address] Lymphocyte, Absolute 1.1 10 3/mcL Normal 0.9-4.3 [facility] Comment on above: Performed By: #### T SH, GFR, A1C, LIPID, CMP, VIDH #### [address] [address] Lymphocytes/100 WBC (Bld) 17.3 % Low 20.0-40.0 [facility] Comment on above: Performed By: #### T SH, GFR, A1C, LIPID, CMP, VIDH #### [address] [address] Monocyte, Absolute 0.5 10 3/mcL Normal 0.1-1.4 [facility] Comment on above: Performed By: #### T SH, GFR, A1C, LIPID, CMP, VIDH #### [address] [address] Monocytes/100 WBC (Bld) 7.2 % Normal 2.0-13.0 [facility] Comment on above: Performed By: #### T SH, GFR, A1C, LIPID, CMP, VIDH #### [address] [address] Neutrophils/100 WBC (Bld) 72.1 % Normal 50.0-75.0 [facility] Comment on above: Performed By: #### T SH, GFR, A1C, LIPID, CMP, VIDH #### [address] [address] .GFRon 02-13-2025 Estimated Glomerular Filtration Rate 84 ml/min/1.73sqm Normal [facility] Comment on above: Result Comment: Stages of Chronic Kidney Disease (CKD) Stage Description eGFR(ml/min/1.73 sq.m.) CKD 1 Normal kidney function or >=90 normal kindney function with possible kidney damage (ex. Proteinuria) CKD 2 Kidney damage with mild loss 60-89 of kidney function CKD 3a Mild to moderate loss of kidney 45-59 function CKD 3b Moderate to severe loss of 30-44 of kindey function CKD 4 Severe loss of kidney function 15-29 CKD 5 Kidney failure <15 Note: (go live 2024) the eGFR calculation was updated to the 2020 CKD-EPI creatinine equation without a race factor to calculate the eGFR results. Performed By: #### T SH, GFR, A1C, LIPID, CMP, VIDH #### [address] [address] .MDWon 02-13-2025 Monocyte Distribution Width 19.40 Normal 0.00-20.00 [facility] Comment on above: Result Comment: For ED adult patients suspected of sepsis, MDW<=20.0 does not rule out sepsis or risk of sepsis Performed By: #### T SH, GFR, A1C, LIPID, CMP, VIDH #### [address] [address] .NEUABSon 02-13-2025 Neutrophil, Absolute 4.6 10 3/mcL Normal 2.3-8.1 [facility] Comment on above: Performed By: #### T SH, GFR, A1C, LIPID, CMP, VIDH #### [address] [address] BMPon 02-13-2025 BUN/Creatinine Ratio 21 ratio Normal 7-27 [facility] Comment on above: Performed By: #### T SH, GFR, A1C, LIPID, CMP, VIDH #### [place] [address] Calcium [Mass/Vol] 8.6 mg/dL Normal 8.4-10.2 [facility] Comment on above: Performed By: #### T SH, GFR, A1C, LIPID, CMP, VIDH #### [place] [address] Chloride [Moles/Vol] 99 mmol/L Normal 98-107 [facility] Comment on above: Performed By: #### T SH, GFR, A1C, LIPID, CMP, VIDH #### [place] [address] CO2 [Moles/Vol] 28 mmol/L Normal 22-29 [facility] Comment on above: Performed By: #### T SH, GFR, A1C, LIPID, CMP, VIDH #### [place] [address] Creatinine [Mass/Vol] 0.82 mg/dL Normal 0.51-0.[address] [facility] Comment on above: Performed By: #### T SH, GFR, A1C, LIPID, CMP, VIDH #### [place] [address] Electrolyte Balance 10.0 mEq/L Normal 4.0-15.0 [facility] Comment on above: Performed By: #### T SH, GFR, A1C, LIPID, CMP, VIDH #### [place] [address] Glucose [Mass/Vol] 155 mg/dL High 70-105 [facility] Comment on above: Performed By: #### T SH, GFR, A1C, LIPID, CMP, VIDH #### [place] [address] Potassium [Moles/Vol] 4.2 mmol/L Normal 3.5-5.[address] [facility] Comment on above: Performed By: #### T SH, GFR, A1C, LIPID, CMP, VIDH #### [address] [address] Sodium [Moles/Vol] 137 mmol/L Normal 136-145 [facility] Comment on above: Performed By: #### T SH, GFR, A1C, LIPID, CMP, VIDH #### [address] [address] Urea nitrogen [Mass/Vol] 17 mg/dL Normal 7-18 [facility] Comment on above: Performed By: #### T SH, GFR, A1C, LIPID, CMP, VIDH #### [address] [address] CBCon 02-13-2025 Erythrocyte distribution width (RBC) [Ratio] 14.2 % Normal 11.5-15.5 [facility] Comment on above: Performed By: #### T SH, GFR, A1C, LIPID, CMP, VIDH #### [place] [address] Hematocrit (Bld) [Volume fraction] 42.1 % Normal 34.0-46.0 [facility] Comment on above: Performed By: #### T SH, GFR, A1C, LIPID, CMP, VIDH #### [address] [address] Hgb 14.1 G/dL Normal 12.0-16.0 [facility] Comment on above: Performed By: #### T SH, GFR, A1C, LIPID, CMP, VIDH #### [address] [address] MCH (RBC) [Entitic mass] 27.4 pg Normal 27.0-33.0 [facility] Comment on above: Performed By: #### T SH, GFR, A1C, LIPID, CMP, VIDH #### [address] [address] MCHC 33.4 G/dL Normal 32.0-36.0 [facility] Comment on above: Performed By: #### T SH, GFR, A1C, LIPID, CMP, VIDH #### [address] [place] [address] MCV (RBC) [Entitic vol] 81.9 fL Normal 80.0-99.0 [facility] Comment on above: Performed By: #### T SH, GFR, A1C, LIPID, CMP, VIDH #### [place] [id number] [place], [place] [address] Platelet 197 10 3/mcL Normal 150-450 [facility] Comment on above: Performed By: #### T SH, GFR, A1C, LIPID, CMP, VIDH #### [place] [id number] [place], [place] [address] Platelet mean volume (Bld) [Entitic vol] 7.9 fL Normal 6.6-10.5 [facility] Comment on above: Performed By: #### T SH, GFR, A1C, LIPID, CMP, VIDH #### [address] [address] RBC 5.14 10 6/mcL Normal 4.10-5.30 [facility] Comment on above: Performed By: #### T SH, GFR, A1C, LIPID, CMP, VIDH #### [address] [address] WBC 6.4 10 3/mcL Normal 4.5-10.8 [facility] Comment on above: Performed By: #### T SH, GFR, A1C, LIPID, CMP, VIDH #### [address] [address] LABORATORYOrdered By: SYSTEM SYSTEM on 02-13-2025 Basophils (Bld) [#/Vol] 0.1 103/mcL Normal 0.0 - 0.3 10^3/mcL AO Workflow SS Basophils/100 WBC (Bld) 0.9 % Normal 0.0 - 2.5 % AO Workflow SS Calcium [Mass/Vol] 8.6 mg/dL Normal 8.4 - 10. 2 mg/dL AO ADM SS Chloride [Moles/Vol] 99 mmol/L Normal 98 - 10 7 mmol/L AO ADM SS CO2 [Moles/Vol] 28 mmol/L Normal 22 - 29 mmol/L AO ADM SS Creatinine [Mass/Vol] 0.82 mg/dL Normal 0.51 - 0.95 mg/dL AO ADM SS Electrolyte Balance 10.0 mEq/L Normal 4.0 - 15 .0 mEq/L AO ADM SS Eosinophil, Absolute 0.2 103/mcL Normal 0.0 - 0 .7 10^3/mcL AO Workflow SS Eosinophils/100 WBC (Bld) 2.5 % Normal 0.0 - 6.0 % AO Workflow SS Erythrocyte distribution width (RBC) [Ratio] 14.2 % Normal 11.5 - 15.5 % AO Workflow SS Estimated Glomerular Filtration Rate 84 ml/min/1.73sqm Invalid Interpretation Code AO Chemistry S Comment on above: Interpretive Data: Stages of Chronic Kidney Disease (CKD) Stage Description eGFR(ml/min/1.73 sq.m.) CKD 1 Normal kidney function or >=90 normal kindney function with possible kidney damage (ex. Proteinuria) CKD 2 Kidney damage with mild loss 60-89 of kidney function CKD 3a Mild to moderate loss of kidney 45-59 function CKD 3b Moderate to severe loss of 30-44 of kindey function CKD 4 Severe loss of kidney function 15-29 CKD 5 Kidney failure <15 Note: (go live 2024) the eGFR calculation was updated to the 2020 CKD-EPI creatinine equation without a race factor to calculate the eGFR results. Glucose [Mass/Vol] 155 mg/dL High 70 - 105 mg/dL AO ADM SS Hematocrit (Bld) [Volume fraction] 42.1 % Normal 34.0 - 46.0 % AO Workflow SS Hemoglobin (Bld) [Mass/Vol] 14.1 G/dL Normal 12.0 - 16.0 G/dL AO Workflow SS Lymphocytes (Bld) [#/Vol] 1.1 103/mcL Normal 0.9 - 4.3 10^3/mcL AO Workflow SS Lymphocytes/100 WBC (Bld) 17.3 % Low 20.0 - 40.0 % AO Workflow SS MCH (RBC) [Entitic mass] 27.4 pg Normal 27.0 - 33.0 pg AO Workflow SS MCHC 33.4 G/dL Normal 32.0 - 36.0 G/dL AO Workflow SS MCV (RBC) [Entitic vol] 81.9 fL Normal 80.0 - 99.0 fL AO Workflow SS Monocyte distribution width Auto (Bld) [Entitic vol] 19.40 1 Normal 0.00 - 20.00 AO Workflow SS Comment on above: Result Comment: For ED adult patients suspected of sepsis, MDW<=20.0 does not rule out sepsis or risk of sepsis Monocytes (Bld) [#/Vol] 0.5 103/mcL Normal 0.1 - 1.4 10^3/mcL AO Workflow SS Monocytes/100 WBC (Bld) 7.2 % Normal 2.0 - 13.0 % AO Workflow SS Neutrophils (Bld) [#/Vol] 4.6 103/mcL Normal 2.3 - 8.1 10^3/mcL AO Workflow SS Neutrophils/100 WBC (Bld) 72.1 % Normal 50.0 - 75.0 % AO Workflow SS Platelet mean volume (Bld) [Entitic vol] 7.9 fL Normal 6.6 - 10.5 fL AO Workflow SS Platelets (Bld) [#/Vol] 197 103/mcL Normal 150 - 450 10^3/mcL AO Workflow SS Potassium [Moles/Vol] 4.2 mmol/L Normal 3.5 - 5.1 mmol/L AO ADM SS RBC (Bld) [#/Vol] 5.14 106/mcL Normal 4.10 - 5.3 0 10^6/mcL AO Workflow SS Sodium [Moles/Vol] 137 mmol/L Normal 136 - 145 mmol/L AO ADM SS Urea nitrogen [Mass/Vol] 17 mg/dL Normal 7 - 18 mg/dL AO ADM SS Urea nitrogen/Creatinine [Mass ratio] 21 ratio Normal 7 - 27 ratio AO ADM SS WBC (Bld) [#/Vol] 6.4 103/mcL Normal 4.5 - 10.8 10^3/mcL AO Workflow SS No Panel Informationon 02-13 Microscopic examination of blood, culture Culture has been received in lab and is no growth to date. Routine cultures are held for 5 days. [facility] Work Phone: .Auto Diffon 02-02-2025 Basophil, Absolute 0.1 10 3/mcL Normal 0.0-0.3 [facility] Comment on above: Performed By: #### T SH, GFR, A1C, LIPID, CMP, VIDH #### [facility] [address] [place], [place] [address] Basophils/100 WBC (Bld) 0.8 % Normal 0.0-2.5 [facility] Comment on above: Performed By: #### T SH, GFR, A1C, LIPID, CMP, VIDH #### [address] [address] Eosinophil, Absolute 0.2 10 3/mcL Normal 0.0-0.7 [facility] Comment on above: Performed By: #### T SH, GFR, A1C, LIPID, CMP, VIDH #### [address] [address] Eosinophils/100 WBC (Bld) 2.5 % Normal 0.0-6.0 [facility] Comment on above: Performed By: #### T SH, GFR, A1C, LIPID, CMP, VIDH #### [address] [address] Lymphocyte, Absolute 2.8 10 3/mcL Normal 0.9-4.3 [facility] Comment on above: Performed By: #### T SH, GFR, A1C, LIPID, CMP, VIDH #### [address] [address] Lymphocytes/100 WBC (Bld) 40.0 % Normal 20.0-40.0 [facility] Comment on above: Performed By: #### T SH, GFR, A1C, LIPID, CMP, VIDH #### [address] [address] Monocyte, Absolute 0.5 10 3/mcL Normal 0.1-1.4 [facility] Comment on above: Performed By: #### T SH, GFR, A1C, LIPID, CMP, VIDH #### [address] [address] Monocytes/100 WBC (Bld) 7.5 % Normal 2.0-13.0 [facility] Comment on above: Performed By: #### T SH, GFR, A1C, LIPID, CMP, VIDH #### [address] [address] Neutrophils/100 WBC (Bld) 49.2 % Low 50.0-75.0 [facility] Comment on above: Performed By: #### T SH, GFR, A1C, LIPID, CMP, VIDH #### [address] [address] .GFRon 02-02-2025 Estimated Glomerular Filtration Rate 83 ml/min/1.73sqm Normal [facility] Comment on above: Result Comment: Stages of Chronic Kidney Disease (CKD) Stage Description eGFR(ml/min/1.73 sq.m.) CKD 1 Normal kidney function or >=90 normal kindney function with possible kidney damage (ex. Proteinuria) CKD 2 Kidney damage with mild loss 60-89 of kidney function CKD 3a Mild to moderate loss of kidney 45-59 function CKD 3b Moderate to severe loss of 30-44 of kindey function CKD 4 Severe loss of kidney function 15-29 CKD 5 Kidney failure <15 Note: (go live 2024) the eGFR calculation was updated to the 2020 CKD-EPI creatinine equation without a race factor to calculate the eGFR results. Performed By: #### T SH, GFR, A1C, LIPID, CMP, VIDH #### [address] [address] .NEUABSon 02-02-2025 Neutrophil, Absolute 3.4 10 3/mcL Normal 2.3-8.1 [facility] Comment on above: Performed By: #### T SH, GFR, A1C, LIPID, CMP, VIDH #### [address] [address] CBCon 02-02-2025 Erythrocyte distribution width (RBC) [Ratio] 14.0 % Normal 11.5-15.5 [facility] Comment on above: Performed By: #### T SH, GFR, A1C, LIPID, CMP, VIDH #### [address] [address] Hematocrit (Bld) [Volume fraction] 42.9 % Normal 34.0-46.0 [facility] Comment on above: Performed By: #### T SH, GFR, A1C, LIPID, CMP, VIDH #### [address] [address] Hgb 14.2 G/dL Normal 12.0-16.0 [facility] Comment on above: Performed By: #### T SH, GFR, A1C, LIPID, CMP, VIDH #### [address] [address] MCH (RBC) [Entitic mass] 27.2 pg Normal 27.0-33.0 [facility] Comment on above: Performed By: #### T SH, GFR, A1C, LIPID, CMP, VIDH #### [address] [address] MCHC 33.1 G/dL Normal 32.0-36.0 [facility] Comment on above: Performed By: #### T SH, GFR, A1C, LIPID, CMP, VIDH #### [address] [address] MCV (RBC) [Entitic vol] 82.2 fL Normal 80.0-99.0 [facility] Comment on above: Performed By: #### T SH, GFR, A1C, LIPID, CMP, VIDH #### [address] [address] Platelet 223 10 3/mcL Normal 150-450 [facility] Comment on above: Performed By: #### T SH, GFR, A1C, LIPID, CMP, VIDH #### [address] [address] Platelet mean volume (Bld) [Entitic vol] 8.3 fL Normal 6.6-10.5 [facility] Comment on above: Performed By: #### T SH, GFR, A1C, LIPID, CMP, VIDH #### [address] [address] RBC 5.21 10 6/mcL Normal 4.10-5.30 [facility] Comment on above: Performed By: #### T SH, GFR, A1C, LIPID, CMP, VIDH #### [address] [address] WBC 7.0 10 3/mcL Normal 4.5-10.8 [facility] Comment on above: Performed By: #### T SH, GFR, A1C, LIPID, CMP, VIDH #### [address] [address] CMPon 02-02-2025 Albumin Level 4.0 G/dL Normal 3.5-5.0 [facility] Comment on above: Performed By: #### T SH, GFR, A1C, LIPID, CMP, VIDH #### [address] [address] Albumin/Globulin [Mass ratio] 1.1 {ratio} Normal 1.1-2.5 [facility] Comment on above: Performed By: #### T SH, GFR, A1C, LIPID, CMP, VIDH #### [address] [address] ALP [Catalytic activity/Vol] 94 U/L Normal 40-135 [facility] Comment on above: Performed By: #### T SH, GFR, A1C, LIPID, CMP, VIDH #### [address] [address] ALT [Catalytic activity/Vol] 28 U/L Normal 14-59 [facility] Comment on above: Performed By: #### T SH, GFR, A1C, LIPID, CMP, VIDH #### [address] [address] AST [Catalytic activity/Vol] 27 U/L Normal 10-40 [facility] Comment on above: Performed By: #### T SH, GFR, A1C, LIPID, CMP, VIDH #### [address] [address] Bili Total 0.4 mg/dL Normal 0.2-1.0 [facility] Comment on above: Result Comment: Use of this assay is not recommended for patients undergoing treatment with eltrombopag due to the potential for falsely elevated results. Performed By: #### T SH, GFR, A1C, LIPID, CMP, VIDH #### [address] [address] BUN/Creatinine Ratio 23 ratio Normal 7-27 [facility] Comment on above: Performed By: #### T SH, GFR, A1C, LIPID, CMP, VIDH #### [address] [address] Calcium [Mass/Vol] 9.5 mg/dL Normal 8.4-10.2 [facility] Comment on above: Performed By: #### T SH, GFR, A1C, LIPID, CMP, VIDH #### [address] [address] Chloride [Moles/Vol] 103 mmol/L Normal 98-107 [facility] Comment on above: Performed By: #### T SH, GFR, A1C, LIPID, CMP, VIDH #### [place] [address] CO2 [Moles/Vol] 27 mmol/L Normal 22-29 [facility] Comment on above: Performed By: #### T SH, GFR, A1C, LIPID, CMP, VIDH #### [address] [address] Creatinine [Mass/Vol] 0.83 mg/dL Normal 0.51-0.[address] [facility] Comment on above: Performed By: #### T SH, GFR, A1C, LIPID, CMP, VIDH #### [address] [address] Electrolyte Balance 7.0 mEq/L Normal 4.0-15.0 [facility] Comment on above: Performed By: #### T SH, GFR, A1C, LIPID, CMP, VIDH #### [address] [address] Globulin 3.5 G/dL Normal 2.7-4.4 [facility] Comment on above: Performed By: #### T SH, GFR, A1C, LIPID, CMP, VIDH #### [address] [address] Glucose [Mass/Vol] 167 mg/dL High 70-105 [facility] Comment on above: Performed By: #### T SH, GFR, A1C, LIPID, CMP, VIDH #### [address] [address] Potassium [Moles/Vol] 4.3 mmol/L Normal 3.5-5.[address] [facility] Comment on above: Performed By: #### T SH, GFR, A1C, LIPID, CMP, VIDH #### [address] [address] Sodium [Moles/Vol] 137 mmol/L Normal 136-145 [facility] Comment on above: Performed By: #### T SH, GFR, A1C, LIPID, CMP, VIDH #### [address] [address] Total Protein 7.5 G/dL Normal 6.4-8.2 [facility] Comment on above: Performed By: #### T SH, GFR, A1C, LIPID, CMP, VIDH #### [address] [address] Urea nitrogen [Mass/Vol] 19 mg/dL High 7-18 [facility] Comment on above: Performed By: #### T SH, GFR, A1C, LIPID, CMP, VIDH #### [address] [address] [facility] U Creatinine 121.7 mg/dL Normal [facility] Comment on above: Performed By: #### M ALBR #### [address] [address] U Microalb 13.6 mg/L Normal [facility] Comment on above: Performed By: #### M ALBR #### [address] [address] U Ratio Alb/Cre 11.2 mg/G Normal 0.0-30.0 [facility] Comment on above: Performed By: #### M ALBR #### [address] [address] 00-IF-Acjrvsu DOrdered By: Shantal Simpson on 10-29-2024 Vitamin D 25-Hydroxy 43.1 ng/mL [facility] Comment on above: Vitamin D 25(OH) Sta tus Range Deficiency <20 ng/mL (50nmol/L) Insufficiency 20 - 30 ng/mL (50 - 75 nmol/L) Sufficiency 30 - 100 ng/mL (75 - 250 nmol/L) Toxicity >100 ng/mL (>250 nmol/L) Absolute neutrophil countOrd ered By: Cameron Simpson on 10-29-2024 Neutrophils (Bld) [#/Vol] 4.4 10*3/uL 2.0-7.7 [facility] Albumin to globulin ratioOrd ered By: Cameron Simpson on 10-29-2024 Albumin/Globulin [Mass ratio] 1.1 {ratio} 0.9-2.4 [facility] Basophil percentageOrdered B y: Cameron Simpson on 10-29-2024 Basophils/100 WBC (Bld) 0.7 % 0-1 [facility] Bilirubin, totalOrdered By: Cameron Simpson on 10-29-2024 Bilirubin [Mass/Vol] 0.30 mg/dL 0.20-1.00 [facility] Comment on above: For patients on eltr ombopag therapy, use of Dimension [place] TBIL is not recommended. Blood urea nitrogen (BUN)/cr eatinine ratioOrdered By: Cameron Simpson on 10-29-2024 Urea nitrogen/Creatinine [Mass ratio] 22.4 mg/mg High 10-20 [facility] CBC W/Diff, Automatedon 10-10 Absolute Lymph 2.31 X10 3/uL Normal 0.83-4.51 [facility] Comment on above: Performed By: #### L 500.4050, L502.0500, L506.1000, L501.9985, L100.0100, L501.9520 #### [facility] [address] [place], [address] Absolute Neut 4.4 X10 3/uL Normal 2.0-7.7 [facility] Comment on above: Performed By: #### L 500.4050, L502.0500, L506.1000, L501.9985, L100.0100, L501.9520 #### [facility] [address] [place], [address] Basophils/100 WBC (Bld) 0.7 % Normal 0-1 [facility] Comment on above: Performed By: #### L 500.4050, L502.0500, L506.1000, L501.9985, L100.0100, L501.9520 #### [facility] [address] [place], [address] Eosinophils/100 WBC (Bld) 1.9 % Normal 0-5 [facility] Comment on above: Performed By: #### L 500.4050, L502.0500, L506.1000, L501.9985, L100.0100, L501.9520 #### [facility] [address] [place], [address] Erythrocyte distribution width (RBC) [Ratio] 13.1 % Normal 11.6-14.6 [facility] Comment on above: Performed By: #### L 500.4050, L502.0500, L506.1000, L501.9985, L100.0100, L501.9520 #### [facility] [address] [place], [address] Hematocrit (Bld) [Volume fraction] 40.6 % Normal 37-47 [facility] Comment on above: Performed By: #### L 500.4050, L502.0500, L506.1000, L501.9985, L100.0100, L501.9520 #### [facility] [address] [place], [address] Hemoglobin (Bld) [Mass/Vol] 13.2 g/dL Normal 12.0-15.0 [facility] Comment on above: Performed By: #### L 500.4050, L502.0500, L506.1000, L501.9985, L100.0100, L501.9520 #### [facility] [address] [place], [address] IG% 0.500 Normal 0.0-0.9 [facility] Comment on above: Result Comment: IG% - Immature Granulocytes (promyelocytes, myelocytes and metamyelocytes) > 1% indicates that a LEFT SHIFT is Present. Performed By: #### L 500.4050, L502.0500, L506.1000, L501.9985, L100.0100, L501.9520 #### [facility] [address] [place], [address] Lymphocytes/100 WBC (Bld) 31.3 % Normal 19-41 [facility] Comment on above: Performed By: #### L 500.4050, L502.0500, L506.1000, L501.9985, L100.0100, L501.9520 #### [facility] [address] [place], [address] MCH (RBC) [Entitic mass] 26.3 pg Low 27.0-32.0 [facility] Comment on above: Performed By: #### L 500.4050, L502.0500, L506.1000, L501.9985, L100.0100, L501.9520 #### [facility] [address] [place], [address] MCHC (RBC) [Mass/Vol] 32.5 g/dL Normal 32-36 [facility] Comment on above: Performed By: #### L 500.4050, L502.0500, L506.1000, L501.9985, L100.0100, L501.9520 #### [facility] [address] [place], [address] MCV (RBC) [Entitic vol] 80.9 fL Low 81-99 [facility] Comment on above: Performed By: #### L 500.4050, L502.0500, L506.1000, L501.9985, L100.0100, L501.9520 #### [facility] [address] [place], [address] Monocytes/100 WBC (Bld) 6.2 % Normal 0-10 [facility] Comment on above: Performed By: #### L 500.4050, L502.0500, L506.1000, L501.9985, L100.0100, L501.9520 #### [facility] [address] [place], [address] Neutrophils/100 WBC (Bld) 59.4 % Normal 47-70 [facility] Comment on above: Performed By: #### L 500.4050, L502.0500, L506.1000, L501.9985, L100.0100, L501.9520 #### [facility] [address] [place], [address] Nucleated RBC (Bld) [#/Vol] 0 10*3/uL Normal 0-5 [facility] Comment on above: Performed By: #### L 500.4050, L502.0500, L506.1000, L501.9985, L100.0100, L501.9520 #### [facility] [address] [place], [address] Platelet mean volume (Bld) [Entitic vol] 10.1 fL Normal 6.2-12.0 [facility] Comment on above: Performed By: #### L 500.4050, L502.0500, L506.1000, L501.9985, L100.0100, L501.9520 #### [facility] [address] [place], [address] Platelets (Bld) [#/Vol] 270 10*3/uL Normal 150-450 [facility] Comment on above: Performed By: #### L 500.4050, L502.0500, L506.1000, L501.9985, L100.0100, L501.9520 #### [facility] [address] [place], [address] RBC (Bld) [#/Vol] 5.02 10*6/uL Normal 4.2-5.4 [facility] Comment on above: Performed By: #### L 500.4050, L502.0500, L506.1000, L501.9985, L100.0100, L501.9520 #### [facility] [address] [place], [address] RDW SD 38.0 fl Normal 35.1-43.9 [facility] Comment on above: Performed By: #### L 500.4050, L502.0500, L506.1000, L501.9985, L100.0100, L501.9520 #### [facility] [address] [place], [address] WBC (Bld) [#/Vol] 7.4 10*3/uL Normal 4.4-11.0 [facility] Comment on above: Performed By: #### L 500.4050, L502.0500, L506.1000, L501.9985, L100.0100, L501.9520 #### [facility] [address] [place], [address] Carbon dioxide measurementOr dered By: Cameron Simpson on 10-29-2024 CO2 [Moles/Vol] 25.0 mmol/L 21.0-32.0 [facility] Chloride measurementOrdered By: Cameron Simpson on 10-29-2024 Chloride [Moles/Vol] 105 mmol/L 98-107 [facility] Comprehensive Metabolic Prof ilon 10-29-2024 Albumin [Mass/Vol] 4.0 g/dL Normal 3.2-5.0 [facility] Comment on above: Order Comment: DR MICHAEL GUTHRIE ORDERD CMP,TSH,VITD,A1C,MICROALUMIN URIN DR HERNANDEZ ORDERD CMP,CBCD Performed By: #### L 500.4050, L502.0500, L506.1000, L501.9985, L100.0100, L501.9520 #### [facility] [address] [place], [address] Albumin/Globulin [Mass ratio] 1.1 {ratio} Normal 0.9-2.4 [facility] Comment on above: Order Comment: DR MICHAEL GUTHRIE ORDERD CMP,TSH,VITD,A1C,MICROALUMIN URIN DR HERNANDEZ ORDERD CMP,CBCD Performed By: #### L 500.4050, L502.0500, L506.1000, L501.9985, L100.0100, L501.9520 #### [facility] [address] [place], [address] ALK P 107 U/L Normal 45-117 [facility] Comment on above: Order Comment: DR MICHAEL GUTHRIE ORDERD CMP,TSH,VITD,A1C,MICROALUMIN URIN DR HERNANDEZ ORDERD CMP,CBCD Performed By: #### L 500.4050, L502.0500, L506.1000, L501.9985, L100.0100, L501.9520 #### [facility] [address] [place], [address] ALT [Catalytic activity/Vol] 27 U/L Normal 13-56 [facility] Comment on above: Order Comment: DR MICHAEL GUTHRIE ORDERD CMP,TSH,VITD,A1C,MICROALUMIN URIN DR HERNANDEZ ORDERD CMP,CBCD Performed By: #### L 500.4050, L502.0500, L506.1000, L501.9985, L100.0100, L501.9520 #### [facility] [address] [place], [address] AST [Catalytic activity/Vol] 26 U/L Normal 15-37 [facility] Comment on above: Order Comment: DR MICHAEL GUTHRIE ORDERD CMP,TSH,VITD,A1C,MICROALUMIN URIN DR HERNANDEZ ORDERD CMP,CBCD Performed By: #### L 500.4050, L502.0500, L506.1000, L501.9985, L100.0100, L501.9520 #### [facility] [address] [place], [address] Bilirubin [Mass/Vol] 0.30 mg/dL Normal 0.20-1.00 [facility] Comment on above: Order Comment: DR MICHAEL GUTHRIE ORDERD CMP,TSH,VITD,A1C,MICROALUMIN URIN DR HERNANDEZ ORDERD CMP,CBCD Result Comment: For patients on eltrombopag therapy, use of Dimension [place] TBIL is not recommended. Performed By: #### L 500.4050, L502.0500, L506.1000, L501.9985, L100.0100, L501.9520 #### [facility] [address] [place], [address] BUN/CRE 22.4 RATIO High 10-20 [facility] Comment on above: Order Comment: DR MICHAEL GUTHRIE ORDERD CMP,TSH,VITD,A1C,MICROALUMIN URIN DR HERNANDEZ ORDERD CMP,CBCD Performed By: #### L 500.4050, L502.0500, L506.1000, L501.9985, L100.0100, L501.9520 #### [facility] [address] [place], [address] CA,Total 9.3 mg/dL Normal 8.5-10.1 [facility] Comment on above: Order Comment: DR MICHAEL GUTHRIE ORDERD CMP,TSH,VITD,A1C,MICROALUMIN URIN DR HERNANDEZ ORDERD CMP,CBCD Performed By: #### L 500.4050, L502.0500, L506.1000, L501.9985, L100.0100, L501.9520 #### [facility] [address] [place], [address] Chloride [Moles/Vol] 105 mmol/L Normal 98-107 [facility] Comment on above: Order Comment: DR MICHAEL GUTHRIE ORDERD CMP,TSH,VITD,A1C,MICROALUMIN URIN DR HERNANDEZ ORDERD CMP,CBCD Performed By: #### L 500.4050, L502.0500, L506.1000, L501.9985, L100.0100, L501.9520 #### [facility] [address] [place], [address] CO2 [Moles/Vol] 25.0 mmol/L Normal 21.0-32.0 [facility] Comment on above: Order Comment: DR MICHAEL GUTHRIE ORDERD CMP,TSH,VITD,A1C,MICROALUMIN URIN DR HERNANDEZ ORDERD CMP,CBCD Performed By: #### L 500.4050, L502.0500, L506.1000, L501.9985, L100.0100, L501.9520 #### [facility] [address] [place], [address] Creatinine [Mass/Vol] 0.89 mg/dL Normal 0.55-1.02 [facility] Comment on above: Order Comment: DR MICHAEL GUTHRIE ORDERD CMP,TSH,VITD,A1C,MICROALUMIN URIN DR HERNANDEZ ORDERD CMP,CBCD Result Comment: The validity of the calculated GFR GFRAA in patients over 70 years has not been determined. Clinical correlation is essential. Performed By: #### L 500.4050, L502.0500, L506.1000, L501.9985, L100.0100, L501.9520 #### [facility] [address] [place], [address] EST GFR - AA 84 mL/min Normal >60 [facility] Comment on above: Order Comment: DR MICHAEL GUTHRIE ORDERD CMP,TSH,VITD,A1C,MICROALUMIN URIN DR HERNANDEZ ORDERD CMP,CBCD Result Comment: Afri can Libyan GFR Calc Performed By: #### L 500.4050, L502.0500, L506.1000, L501.9985, L100.0100, L501.9520 #### [facility] [address] [place], [address] GAP 7 Normal 5-15 [facility] Comment on above: Order Comment: DR MICHAEL GUTHRIE ORDERD CMP,TSH,VITD,A1C,MICROALUMIN URIN DR HERNANDEZ ORDERD CMP,CBCD Performed By: #### L 500.4050, L502.0500, L506.1000, L501.9985, L100.0100, L501.9520 #### [facility] [address] [place], [address] GFR/1.73 sq M.predicted among non-blacks MDRD (S/P/Bld) [Vol rate/Area] 70 mL/min/{1.73_m2} Normal >60 [facility] Comment on above: Order Comment: DR MICHAEL GUTHRIE ORDERD CMP,TSH,VITD,A1C,MICROALUMIN URIN DR HERNANDEZ ORDERBlu CMP,CBCD Result Comment: Non- GFR Calc Performed By: #### L 500.4050, L502.0500, L506.1000, L501.9985, L100.0100, L501.9520 #### [facility] [address] [place], [address] Globulin (S) [Mass/Vol] 3.6 g/dL Normal 2.2-4.2 [facility] Comment on above: Order Comment: DR MICHAEL GUTHRIE ORDERD CMP,TSH,VITD,A1C,MICROALUMIN URIN DR HERNANDEZ ORDERBlu CMP,CBCD Performed By: #### L 500.4050, L502.0500, L506.1000, L501.9985, L100.0100, L501.9520 #### [facility] [address] [place], [address] Glucose [Mass/Vol] 198 mg/dL High 74-106 [facility] Comment on above: Order Comment: DR MICHAEL GUTHRIE ORDERD CMP,TSH,VITD,A1C,MICROALUMIN URIN DR HERNANDEZ ORDERD CMP,CBCD Result Comment: Fast ing Glucose result greater than or equal to 126 mg/dL suggests DIABETES MELLITUS per A.D.A. criteria. Performed By: #### L 500.4050, L502.0500, L506.1000, L501.9985, L100.0100, L501.9520 #### [facility] [address] [place], [address] Potassium [Moles/Vol] 3.9 mmol/L Normal 3.5-5.1 [facility] Comment on above: Order Comment: DR MICHAEL GUTHRIE ORDERD CMP,TSH,VITD,A1C,MICROALUMIN URIN DR HERNANDEZ ORDERD CMP,CBCD Performed By: #### L 500.4050, L502.0500, L506.1000, L501.9985, L100.0100, L501.9520 #### [facility] [address] [place], [address] Sodium [Moles/Vol] 137 mmol/L Normal 136-145 [facility] Comment on above: Order Comment: DR MICHAEL GUTHRIE ORDERD CMP,TSH,VITD,A1C,MICROALUMIN URIN DR HERNANDEZ ORDERD CMP,CBCD Performed By: #### L 500.4050, L502.0500, L506.1000, L501.9985, L100.0100, L501.9520 #### [facility] [address] [place], [address] T PROT 7.6 g/dL Normal 6.4-8.2 [facility] Comment on above: Order Comment: DR MICHAEL GUTHRIE ORDERD CMP,TSH,VITD,A1C,MICROALUMIN URIN DR HERNANDEZ ORDERD CMP,CBCD Performed By: #### L 500.4050, L502.0500, L506.1000, L501.9985, L100.0100, L501.9520 #### [facility] [address] [place], [address] Urea nitrogen [Mass/Vol] 20 mg/dL High 7-18 [facility] Comment on above: Order Comment: DR MICHAEL GUTHRIE ORDERD CMP,TSH,VITD,A1C,MICROALUMIN URIN DR HERNANDEZ ORDERD CMP,CBCD Performed By: #### L 500.4050, L502.0500, L506.1000, L501.9985, L100.0100, L501.9520 #### [facility] [address] [place], [address] Eosinophil percentageOrdered By: Cameron Simpson on 10-29-2024 Eosinophils/100 WBC (Bld) 1.9 % 0-5 [facility] Erythrocyte distribution wid th ratioOrdered By: Cameron Simpson on 10-29-2024 Erythrocyte distribution width (RBC) [Ratio] 13.1 % 11.6-14.6 [facility] Erythrocyte distribution wid th standard deviationOrdered By: Cameronphilip Simpson on 10-29-2024 Erythrocyte distribution width (RBC) [Entitic vol] 38.0 fL 35.1-43.9 [facility] Estimated glomerular filtrat ion rate (GFR) AmericanOrdered By: Cameron Simpson on 10-29-2024 Estimated GFR (MDRD) Amer 84 mL/min >60 [facility] Comment on above: GFR Calc Glomerular filtration rate ( GFR) estimationOrdered By: Cameron Simpson on 10-29-2024 Estimated GFR (MDRD) Non-Af Amer 70 mL/min >60 [facility] Comment on above: Non- GFR Calc Glucose measurementOrdered B y: Cameron Sipmson on 10-29-2024 Glucose [Mass/Vol] 198 mg/dL High 74-106 [facility] Comment on above: Fasting Glucose resu lt greater than or equal to 126 mg/dL suggests DIABETES MELLITUS per A.D.A. criteria. Hematocrit Auto (Bld) [Volum e fraction]Ordered By: Cameron Simpson on 10-29-2024 Hematocrit (Bld) [Volume fraction] 40.6 % 37-47 [facility] Hemoglobin A1con 10-29-2024 HbA1c (Bld) [Mass fraction] 7.9 % High 3.8-5.6 [facility] Comment on above: Result Comment: Norm al < 5.7 % Prediabetic 5.7 - 6.4 % Diabetic >or= 6.5 % Please note range changes. Performed By: #### L 500.4050, L502.0500, L506.1000, L501.9985, L100.0100, L501.9520 #### [facility] [address] [place], [address] Hemoglobin A1c percentageOrd ered By: Cameron Simpson on 10-29-2024 HbA1c (Bld) [Mass fraction] 7.9 % High 3.8-5.6 [facility] Comment on above: Normal < 5.7 % Predi abetic 5.7 - 6.4 % Diabetic >or= 6.5 % Please note range changes. Hemoglobin measurementOrdere d By: Cameron Simpson on 10-29-2024 Hemoglobin (Bld) [Mass/Vol] 13.2 g/dL 12.0-15.0 [facility] Immature granulocytes/100 WB C Auto (Bld)Ordered By: Cameron Simpson on 10-29-2024 Immature granulocytes/100 WBC (Bld) 0.500 % 0.0-0.9 [facility] Comment on above: IG% - Immature Granu locytes (promyelocytes, myelocytes and metamyelocytes) > 1% indicates that a LEFT SHIFT is Present. Laboratory - Chemistry and C hemistry - challengeOrdered By: Cameron Simpson on 10-29-2024 AST [Catalytic activity/Vol] 26 U/L 15-37 [facility] - Microbiology an d Antimicrobial susceptibilityOrdered By: Donnie Tapia on 10-29-2024 SARS-CoV-2 (COVID-19) RNA RENETTA+probe Ql (Unsp spec) Not detected [facility] Lymphocytes Auto (Unsp spec) [#/Vol]Ordered By: Cameron Simpson on 10-29-2024 Lymphocytes (Bld) [#/Vol] 2.31 10*3/uL 0.83-4.51 [facility] Lymphocytes/100 WBC Auto (Un sp spec)Ordered By: Cameron Simpson on 10-29-2024 Lymphocytes/100 WBC (Bld) 31.3 % 19-41 [facility] MCV (mean corpuscular volume ) determinationOrdered By: Cameron Simpson on 10-29-2024 MCV (RBC) [Entitic vol] 80.9 fL Low 81-99 [facility] Mean corpuscular hemoglobin (MCH) determinationOrdered By: Cameron Simpson on 10-29-2024 MCH (RBC) [Entitic mass] 26.3 pg Low 27.0-32.0 [facility] Mean corpuscular hemoglobin concentration (MCHC) determinationOrdered By: Cameron Simpson on 10-29-2024 MCHC (RBC) [Mass/Vol] 32.5 g/dL 32-36 [facility] Mean platelet volume determi nationOrdered By: Cameron Simpson on 10-29-2024 Platelet mean volume (Bld) [Entitic vol] 10.1 fL 6.2-12.0 [facility] Microalbumin,Random Urineon 10-29-2024 MICROALBUMIN,UR 111.0 mg/L Normal NO RANGE EST. [facility] Comment on above: Performed By: #### L 500.4050, L502.0500, L506.1000, L501.9985, L100.0100, L501.9520 #### [facility] [address] [place] [address], [address] Monocyte percentageOrdered B y: Cameron Simpson on 10-29-2024 Monocytes/100 WBC (Bld) 6.2 % 0-10 [facility] Neutrophil percentageOrdered By: Cameron Simpson on 10-29-2024 Neutrophils/100 WBC (Bld) 59.4 % 47-70 [facility] No Panel InformationOrdered By: Donnie Tapia on 10-29-2024 Influenza Types A,B Rapid (Clinic) Not detected [facility] Nucleated red blood cell per centageOrdered By: Cameron Simpson on 02-21-2025 Nucleated RBC/100 WBC (Bld) [Ratio] 0 % 0-5 [facility] Platelet countOrdered By: Geovanni Simpson on 10-29-2024 Platelets (Bld) [#/Vol] 270 10*3/uL 150-450 [facility] Potassium measurementOrdered By: Cameron Simpson on 10-29-2024 Potassium [Moles/Vol] 3.9 mmol/L 3.5-5.1 [facility] RBC Auto (Bld) [#/Vol]Ordere d By: Cameron Simpson on 10-29-2024 RBC (Bld) [#/Vol] 5.02 10*6/uL 4.2-5.4 [facility] Random urine microalbumin me asurementOrdered By: Cameron Simpson on 10-29-2024 Urine Random Microalbumin 111.0 mg/L NO RANGE EST. [facility] Serum anion gap measurementO rdered By: Cameron Simpson on 10-29-2024 Anion gap [Moles/Vol] 7 mmol/L 5-15 [facility] Serum globulin measurementOr dered By: Cameron Simpson on 10-29-2024 Globulin (S) [Mass/Vol] 3.6 g/dL 2.2-4.2 [facility] Serum or plasma alanine flannery otransferase (ALT) measurementOrdered By: Cameron Simpson on 10-29-2024 ALT [Catalytic activity/Vol] 27 U/L 13-56 [facility] Serum or plasma albumin james urement (mass/volume)Ordered By: Cameron Simpson on 10-29-2024 Albumin [Mass/Vol] 4.0 g/dL 3.2-5.0 [facility] Serum or plasma alkaline billy sphatase measurementOrdered By: Cameron Simpson on 10-29-2024 ALP [Catalytic activity/Vol] 107 U/L 45-117 [facility] Serum or plasma calcium james urement (mass/volume)Ordered By: Cameron Simpson on 10-29-2024 Calcium [Mass/Vol] 9.3 mg/dL 8.5-10.1 [facility] Serum or plasma creatinine m easurement (mass/volume)Ordered By: Cameron Simpson on 10-29-2024 Creatinine [Mass/Vol] 0.89 mg/dL 0.55-1.02 [facility] Comment on above: The validity of the calculated GFR & GFRAA in patients over 70 years has not been determined. Clinical correlation is essential. Serum or plasma urea nitroge n measurement (mass/volume)Ordered By: Cameron Simpson on 10-29-2024 Urea nitrogen [Mass/Vol] 20 mg/dL High 7-18 [facility] Sodium levelOrdered By: Balta Simpsno on 10-29-2024 Sodium [Moles/Vol] 137 mmol/L 136-145 [facility] TSH QnOrdered By: Cameron aguilar on 10-29-2024 Thyroid Stimulating Hormone (TSH) 1.190 uIU/mL 0.358-3.740 [facility] Thyroid Stim Hormone (TSH)on 10-29-2024 TSH 1.190 uIU/mL Normal 0.358-3.740 [facility] Comment on above: Order Comment: DR MICHAEL GUTHRIE ORDERD CMP,TSH,VITD,A1C,MICROALUMIN URIN DR HERNANDEZ ORDERD CMP,CBCD Performed By: #### L 500.4050, L502.0500, L506.1000, L501.9985, L100.0100, L501.9520 #### [facility] [address] [place], [place], [address] Total proteinOrdered By: Nathan Simpson on 10-29-2024 Protein [Mass/Vol] 7.6 g/dL 6.4-8.2 [facility] Urgent Care Visit Reporton 0 10-29-2024 Urgent Care Visit Report [facility] [address], [address] [place], [place] [id number] OFFICE VISIT Date of Service: 10/29/24 MR#: [id number] Acct: [id number] Name: PRAVIN MELO Rep #: [id number] : 1970 Provider: DOMINICK Hall Age/Sex: 54/F Location: [facility] Status: Signed Intake Vital Signs 10/29/24 11:07 Height 5 ft 5 in Weight: 289 lb 8 oz BMI 48.2 BP 154/82 H Blood Pressure Location Lt brachial Position Sitting Respiration 16 Pulse 88 Pulse Source NIBP Temp 98.1 F Temp Source Oral Pulse Oximetry (%) 98 Oxygen Delivery Method room air Intake Visit Reasons: CONCERN FOR SINUS INFECTION Chief Complaint: LOPES, BA, drainage, 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 Is patient in pain?: No Allergies Sulfa (Sulfonamide Antibiotics) Allergy (Mild, Verified 10/29/24 11:08) Rash Medications ???Medication ???Instructions ???Recorded ???Confirmed ???Type doxycycline monohydrate 100 mg 100 mg PO BID 10 days #20 caps 10/29/24 Rx capsule duloxetine 60 mg capsule,delayed 60 mg PO QHS 10/29/24 10/29/24 His tory release hydroxychloroquine 200 mg tablet 200 mg PO BID 10/29/24 10/29/24 Hi story levothyroxine 150 mcg tablet 150 mcg PO QDAY 10/29/24 10/29/24 History lisinopril 10 mg tablet mg PO DAILY 10/29/24 10/29/24 Hist ory meloxicam 15 mg tablet 15 mg PO QDAY PRN 10/29/24 5 History nateglinide 120 mg tablet mg PO 10/29/24 10/29/24 History semaglutide 7 mg tablet (Rybelsus) 7 mg PO QDAY 10/29/24 10/29/24 H istory tofacitinib 11 mg tablet,extended mg PO DAILY 10/29/24 10/29/24 His tory release 24 hr (Xeljanz XR) tramadol 50 mg tablet 50 mg PO TID PRN pain 10/29/24 History Is last menstrual period known: No Post menopausal: Yes Patient : No Have you fallen in the past year?: No Nurse's Note: LOPES, BA, drainage, face pressure x 4 days. concern for sinus infection. denies fever PFSH Medical History (Updated 10/29/24 @ 11:47 by Donnie TAN, PA) Seasonal allergies Hypothyroidism Shoulder pain Hemorrhoids Diabetes Sleep apnea HTN (hypertension) Rheumatoid arthritis Surgical History (Updated 10/29/24 @ 11:12 by Beth Granados) History of thyroidectomy, subtotal History of laparoscopy History of endometrial ablation History of bilateral knee replacement History of cholecystectomy History of tubal ligation History of 2 sections Family History (Updated 10/29/24 @ 11:13 by Beth Granados) Other Alzheimer dementia Diabetes Hypertension Kidney disease Melanoma Social History (Updated 10/29/24 @ 11:14 by Beth Granados) Smoking Status: Never smoker alcohol intake: never substance use type: does not use HPI HPI Chief Complaint: LOPES, BA, drainage, face pressure Details: PRAVIN MELO, is a 54 F who presents to the office today for complaint of headache, body aches, sinus drainage and facial pressure for the past 4 days. Patient denies fever, chills, sweats. No nausea, vomiting, diarrhea. No loss of taste or smell. No other associated symptoms or alleviating/aggravating factors. ROS Const Constitutional: No other (6 system ROS completed with pertinent findings in the HPI otherwise normal.) Exam Const General: cooperative and healthy appearing HENMT Head: normal to inspection Ears: hearing grossly normal bilaterally, TM's normal bilaterally and EAC's normal Nose: nasal discharge purulent Face and sinus: sinus tenderness frontal and maxillary Mouth: oral mucosae normal Throat: abnormal tonsil bilaterally erythema and hypertrophy 1+ and postnasal drainage Resp Effort Inspection: normal respiratory effort Auscultation: Bilateral: Clear to Auscultation Cardio Palpation: normal PMI Rate: regular rate Rhythm: regular rhythm Neuro General: patient alert and CN's II-XI intact bilaterally Psych Appearance: grossly normal Mental Status: mental status grossly normal Results POC MAT Covid FluAB PCR POC Mat Covid PCR Not Detected Last Edit by Beth Granados on 10/29/24 11:37 POC MAT FLU NOT DETECTED FLU A B Last Edit by Beth Granados on 10/29/24 11:37 Coding Level of Care Code Off vis,new,level 3 Diagnoses Acute sinusitis J01.90 Contact with or suspected exposure to other viral communicable disease Z20.828 Assessment and Plan Assessment and Plan (1) Acute sinusitis: Status: Acute Plan: Doxycycline as prescribed today. Patient tested negative for COVID and influenza in the office today. Encouraged to get plenty of rest, drink lots of clear liquids, and use Tylenol or Ibuprofen (unless contraindicated) for fever and comfort. Patient also educated on other symptomatic management techniques. To be seen in 7-10 days if no improvement; sooner (more content not included)... Normal [facility] Vitamin D,25 Hydroxyon 10-29 Vitamin D 25-OH 43.1 ng/mL Normal [facility] Comment on above: Result Comment: Beverly min D 25(OH) Status Range Deficiency <20 ng/mL (50nmol/L) Insufficiency 20 - 30 ng/mL (50 - 75 nmol/L) Sufficiency 30 - 100 ng/mL (75 - 250 nmol/L) Toxicity >100 ng/mL (>250 nmol/L) Performed By: #### L 500.4050, L502.0500, L506.1000, L501.9985, L100.0100, L501.9520 #### [facility] [address] [facility]. [place], [place], [address] White blood cell (WBC) count Ordered By: Cameron Simpson on 10-29-2024 WBC (Bld) [#/Vol] 7.4 10*3/uL 4.4-11.0 [facility] SCRN MAMM (CAD)W/URBAN BILATo n 09-06-2024 SCRN MAMM (CAD)W/URBAN BILAT [facility] Imaging Services [address] [place] [address] SCRN MAMM (CAD)W/URBAN BILAT MR#: [id number] Acct: [id number] Name: PRAVIN MELO Rep #: [id number] : 1970 F 54 From: Will Ornelas MD PCP: Dr. Sergio Jauregui, DO Status: REG CLI Study: SCRN MAMM (CAD)W/URBAN BILAT Date of Exam: 08/10 Exam# [id number] Ordering Dr: Elisabeth Willoughby MD [id number] MAMMOGRAPHY - BILATERAL SCREENING 3-D TOMOSYNTHESIS REASON FOR EXAM: Female, 54 years old. SCREENING PERTINENT HISTORY: No significant family history. TECHNIQUE: 2-D mammograms and 3-D Tomosynthesis of the breast (s) were performed. CAD was performed. COMPARISON: 08/21/2023 FINDINGS: The breast composition is heterogeneously dense that can obscure small breast masses. Scattered benign calcifications are seen. No dense spiculated masses or suspicious microcalcifications are identified. No architectural distortion is identified. There is no skin thickening or retraction. There has been no significant change since the prior study. BI/SCRN MAMM (CAD)W/URBAN BILAT IMPRESSION: No mammographic signs of malignancy. Routine yearly mammograms recommended. ASSESSMENT CATEGORY: BIRADS Category 1: Negative. A letter regarding these results will be sent to the patient by the facility within 30 days. FOLLOW UP RECOMMENDATION: Yearly follow up mammogram recommended. (A) Approximately 10% of breast cancers are not detected by mammography. A normal mammogram should not delay biopsy of a clinically suspicious abnormality. Electronically Signed: Will Ornelas MD at 20:54 EST Reading Location ID and State: [address] [place] [address] Tel , Service support , CC: Dr. Elisabeth Willoughby MD; Dr. 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 Pathology Reports Accession: Collected Date/Time: Received Date/Time: Pathologist: [id number] 08/24/2024 10:21 EST 08/24/2024 18:00 EST Commodity Lead Cytology Report SPECIMEN: Specimen Description: Liquid Prep w/ HPV Specimen: No Source Given Screening or Diagnostic: Screening RELEVANT HISTORY: LMP: not given SPECIMEN ADEQUACY: SATISFACTORY FOR EVALUATION Endocervical/Transformati onal zone component absent/insufficient INTERPRETATION/RESULTS: NEGATIVE FOR INTRAEPITHELIAL LESION OR MALIGNANCY HIGH RISK HPV TESTING: Event Code Result HPV Interp See Interp HPVN HPV Interp Text: High Risk HPV Typing: NEGATIVE HPV types 16, 18, 31, 33, 35, 39, 45, 51, 52, 56, 58, 59, 66 and 68 DNA were undetectable or below the pre-set threshold. The cindy High-Risk HPV DNA Test is not intended for use as a screening device for Pap normal women under age 30 and is not intended to substitute for regular Pap screening. The cindy High-Risk HPV DNA Test is designed to augment existing methods for the detection of cervical disease and should be used in conjunction with clinical information derived from other diagnostic and screening tests, physical examinations and full medical history in accordance with appropriate patient management procedures. NOTE: A negative result does not preclude the presence of HPV infection because results depend on adequate specimen collection, absence of inhibitors and sufficient DNA to be detected. As of: 08/31/24 11:19 EST COMMENT: This Pap Test was successfully processed and evaluated with the assistance of the [employer] ThinPrep Test Imaging System. Pathology Reports Accession: Collected Date/Time: Received Date/Time: Pathologist: [id number] 08/24/2024 10:21 EST 08/24/2024 18:00 EST Electronically Signed by Pathology report verified by [facility] Screened by: KK Electronically signed by Brenda OVALLES (ASCP) Sign-Out Date: 08/31/2024 11:20 Performing Lab: [facility], [address] [place] [address] Pathology Dept Disclaimer The Pap test is a screening test for cervical cancer. As evidenced by published data, it is subject to both inherent false negative and false positive results. Your patient's results should be interpreted in context with pertinent clinical history including gynecological examination. Normal [facility] HPVon 08-27-2024 HPV Interp Normal See Interp HPVN [facility] Comment on above: Order Comment: Order placed by AP_HPV_ORDER rule from [id number] Result Comment: High Risk HPV Typing: NEGATIVE HPV types 16, 18, 31, 33, 35, 39, 45, 51, 52, 56, 58, 59, 66 and 68 DNA were undetectable or below the pre-set threshold. The cindy High-Risk HPV DNA Test is not intended for use as a screening device for Pap normal women under age 30 and is not intended to substitute for regular Pap screening. The cindy High-Risk HPV DNA Test is designed to augment existing methods for the detection of cervical disease and should be used in conjunction with clinical information derived from other diagnostic and screening tests, physical examinations and full medical history in accordance with appropriate patient management procedures. NOTE: A negative result does not preclude the presence of HPV infection because results depend on adequate specimen collection, absence of inhibitors and sufficient DNA to be detected. See Interp HPVN Performed By: #### H PV #### [address] [address] HPV Source Cervix [facility] Comment on above: Order Comment: Order placed by AP_HPV_ORDER rule from [id number] Performed By: #### H PV #### [address] [address] No Panel Informationon 08-27 Culture Urine 10,000 - 50,000 cfu/ ml Multiple bacterial morphotypes present. Probable Contamination. Suggest recollection if clinically indicated. [facility] Work Phone: TCANCon 08-25-2024 Test cancelled: cur [facility] Comment on above: Performed By: #### T CANC #### [address] [address] .GFRon 08-17-2024 GFR 84 ml/min/1.73sqm [facility] Comment on above: Result Comment: GFR Population mean for , Non- Americans Ages 20-29 = 116 mL/min/1.73 sq.m. Ages 30-39 = 107 mL/min/1.73 sq.m. Ages 40-49 = 99 mL/min/1.73 sq.m. Ages 50-59 = 93 mL/min/1.73 sq.m. Ages 60-69 = 85 mL/min/1.73 sq.m. Ages 70+ = 75 mL/min/1.73 sq.m. Chronic Kidney Disease: Less than 60 mL/min/1.73 square meters End Stage Renal Disease: Less than 15 mL/min/1.73 square meters Performed By: #### T SH, GFR, A1C, LIPID, CMP, VIDH #### [facility] [address] [place], [place] [address] GFR Non- 69 ml/min/1.73sqm [facility] Comment on above: Result Comment: GFR Population mean for , Non- Americans Ages 20-29 = 116 mL/min/1.73 sq.m. Ages 30-39 = 107 mL/min/1.73 sq.m. Ages 40-49 = 99 mL/min/1.73 sq.m. Ages 50-59 = 93 mL/min/1.73 sq.m. Ages 60-69 = 85 mL/min/1.73 sq.m. Ages 70+ = 75 mL/min/1.73 sq.m. Chronic Kidney Disease: Less than 60 mL/min/1.73 square meters End Stage Renal Disease: Less than 15 mL/min/1.73 square meters Performed By: #### T SH, GFR, A1C, LIPID, CMP, VIDH #### [address] [address] A1Con 08-17-2024 Glucose [Mass/Vol] 169 mg/dL Normal [facility] Comment on above: Result Comment: Anyi mated Average Glucose calculated by equation ((28.7xA1C)-46.7) Estimated average glucose (eAG) is a calculated value from Hemoglobin A1C and is asset protection representative of the average blood glucose level in the last 2-3 month period. Normal range: less than 114 mg/dL Performed By: #### T SH, GFR, A1C, LIPID, CMP, VIDH #### [address] [address] HbA1c (Bld) [Mass fraction] 7.5 % High 4.3-6.4 [facility] Comment on above: Performed By: #### T SH, GFR, A1C, LIPID, CMP, VIDH #### [address] [address] CMPon 08-17-2024 Albumin Level 4.0 G/dL Normal 3.5-5.0 [facility] Comment on above: Performed By: #### T SH, GFR, A1C, LIPID, CMP, VIDH #### [address] [address] Albumin/Globulin [Mass ratio] 1.3 {ratio} Normal 1.1-2.5 [facility] Comment on above: Performed By: #### T SH, GFR, A1C, LIPID, CMP, VIDH #### [address] [address] ALP [Catalytic activity/Vol] 106 U/L Normal 40-135 [facility] Comment on above: Performed By: #### T SH, GFR, A1C, LIPID, CMP, VIDH #### [address] [address] ALT [Catalytic activity/Vol] 25 U/L Normal 14-59 [facility] Comment on above: Performed By: #### T SH, GFR, A1C, LIPID, CMP, VIDH #### [address] [address] AST [Catalytic activity/Vol] 23 U/L Normal 10-40 [facility] Comment on above: Performed By: #### T SH, GFR, A1C, LIPID, CMP, VIDH #### [address] [address] Bili Total 0.4 mg/dL Normal 0.2-1.0 [facility] Comment on above: Result Comment: Use of this assay is not recommended for patients undergoing treatment with eltrombopag due to the potential for falsely elevated results. Performed By: #### T SH, GFR, A1C, LIPID, CMP, VIDH #### [address] [address] BUN/Creatinine Ratio 27 ratio Normal 7-27 [facility] Comment on above: Performed By: #### T SH, GFR, A1C, LIPID, CMP, VIDH #### [address] [address] Calcium [Mass/Vol] 9.9 mg/dL Normal 8.4-10.2 [facility] Comment on above: Performed By: #### T SH, GFR, A1C, LIPID, CMP, VIDH #### [address] [address] Chloride [Moles/Vol] 102 mmol/L Normal 98-107 [facility] Comment on above: Performed By: #### T SH, GFR, A1C, LIPID, CMP, VIDH #### [address] [address] CO2 [Moles/Vol] 30 mmol/L High 22-29 [facility] Comment on above: Performed By: #### T SH, GFR, A1C, LIPID, CMP, VIDH #### [address] [address] Creatinine [Mass/Vol] 0.85 mg/dL Normal 0.55-1.[address] [facility] Comment on above: Result Comment: Test ing performed on [employer] Dimension EXL analyzer using a modified kinetic Jj technique. Performed By: #### T SH, GFR, A1C, LIPID, CMP, VIDH #### [place] [address] Electrolyte Balance 8.0 mEq/L Normal 4.0-15.0 [facility] Comment on above: Performed By: #### T SH, GFR, A1C, LIPID, CMP, VIDH #### [place] [address] Globulin 3.1 G/dL Normal [facility] Comment on above: Performed By: #### T SH, GFR, A1C, LIPID, CMP, VIDH #### [place] [address] Glucose [Mass/Vol] 144 mg/dL High 70-105 [facility] Comment on above: Performed By: #### T SH, GFR, A1C, LIPID, CMP, VIDH #### [place] [id number] Potassium [Moles/Vol] 4.6 mmol/L Normal 3.5-5.[address] [facility] Comment on above: Performed By: #### T SH, GFR, A1C, LIPID, CMP, VIDH #### [place] [address] Sodium [Moles/Vol] 140 mmol/L Normal 136-145 [facility] Comment on above: Performed By: #### T SH, GFR, A1C, LIPID, CMP, VIDH #### [place] [address] Total Protein 7.1 G/dL Normal 6.4-8.2 [facility] Comment on above: Performed By: #### T SH, GFR, A1C, LIPID, CMP, VIDH #### [facility] [address] [place], [place] [address] Urea nitrogen [Mass/Vol] 23 mg/dL High 7-18 [facility] Comment on above: Performed By: #### T SH, GFR, A1C, LIPID, CMP, VIDH #### [facility] [address] [place], [place] [address] LABORATORYOrdered By: SYSTEM SYSTEM on 08-17-2024 25-hydroxyvitamin D3 [Mass/Vol] 21.8 ng/mL Invalid Interpretation Code AO ADM SS Comment on above: Interpretive Data: I nterpretive Values Based on Total 25(OH) Vitamin D: Deficient <20 ng/mL Insufficient 20 - <30 ng/mL Sufficient 30-100 ng/mL Albumin BCP dye [Mass/Vol] 4.0 G/dL Normal 3.5 - 5.0 G/dL AO ADM SS Albumin/Globulin [Mass ratio] 1.3 {ratio} Normal 1.1 - 2.5 ratio AO ADM SS ALP [Catalytic activity/Vol] 106 U/L Normal 40 - 135 U/L AO ADM SS ALT With P-5'-P [Catalytic activity/Vol] 25 U/L Normal 14 - 59 U/L AO ADM SS AST With P-5'-P [Catalytic activity/Vol] 23 U/L Normal 10 - 40 U/L AO ADM SS Bilirubin [Mass/Vol] 0.4 mg/dL Normal 0.2 - 1 .0 mg/dL AO ADM SS Comment on above: Interpretive Data: U se of this assay is not recommended for patients undergoing treatment with eltrombopag due to the potential for falsely elevated results. Calcium [Mass/Vol] 9.9 mg/dL Normal 8.4 - 10. 2 mg/dL AO ADM SS Chloride [Moles/Vol] 102 mmol/L Normal 98 - 10 7 mmol/L AO ADM SS CO2 [Moles/Vol] 30 mmol/L High 22 - 29 mmol/L AO ADM SS Creatinine [Mass/Vol] 0.85 mg/dL Normal 0.55 - 1.02 mg/dL AO ADM SS Comment on above: Interpretive Data: T esting performed on Siemens Dimension EXL analyzer using a modified kinetic Jj technique. Electrolyte Balance 8.0 mEq/L Normal 4.0 - 15 .0 mEq/L AO ADM SS GFR/1.73 sq M.predicted among blacks MDRD (S/P/Bld) [Vol rate/Area] 84 ml/min/1.73sqm Invalid Interpretation Code AO Chemistry S Comment on above: Interpretive Data: GFR Population mean for , Non- Americans Ages 20-29 = 116 mL/min/1.73 sq.m. Ages 30-39 = 107 mL/min/1.73 sq.m. Ages 40-49 = 99 mL/min/1.73 sq.m. Ages 50-59 = 93 mL/min/1.73 sq.m. Ages 60-69 = 85 mL/min/1.73 sq.m. Ages 70+ = 75 mL/min/1.73 sq.m. Chronic Kidney Disease: Less than 60 mL/min/1.73 square meters End Stage Renal Disease: Less than 15 mL/min/1.73 square meters GFR/1.73 sq M.predicted among non-blacks MDRD (S/P/Bld) [Vol rate/Area] 69 ml/min/1.73sqm Invalid Interpretation Code AO Chemistry S Comment on above: Interpretive Data: GFR Population mean for , Non- Americans Ages 20-29 = 116 mL/min/1.73 sq.m. Ages 30-39 = 107 mL/min/1.73 sq.m. Ages 40-49 = 99 mL/min/1.73 sq.m. Ages 50-59 = 93 mL/min/1.73 sq.m. Ages 60-69 = 85 mL/min/1.73 sq.m. Ages 70+ = 75 mL/min/1.73 sq.m. Chronic Kidney Disease: Less than 60 mL/min/1.73 square meters End Stage Renal Disease: Less than 15 mL/min/1.73 square meters Globulin 3.1 G/dL Invalid Interpretation Code AO ADM SS Glucose [Mass/Vol] 144 mg/dL High 70 - 105 mg/dL AO ADM SS Glucose [Mass/Vol] 169 mg/dL Invalid Interpretation Code AO Chemistry S Comment on above: Interpretive Data: E stimated average glucose (eAG) is a calculated value from Hemoglobin A1C and is asset protection representative of the average blood glucose level in the last 2-3 month period. Normal range: less than 114 mg/dL HbA1c (Bld) [Mass fraction] 7.5 % High 4.3 - 6.4 % AO ADM SS Potassium [Moles/Vol] 4.6 mmol/L Normal 3.5 - 5.1 mmol/L AO ADM SS Protein [Mass/Vol] 7.1 G/dL Normal 6.4 - 8.2 G/dL AO ADM SS Sodium [Moles/Vol] 140 mmol/L Normal 136 - 145 mmol/L AO ADM SS TSH Qn 0.44 m[IU]/L Normal 0.36 - 3.74 mcIU/mL AO ADM SS Urea nitrogen [Mass/Vol] 23 mg/dL High 7 - 18 mg/dL AO ADM SS Urea nitrogen/Creatinine [Mass ratio] 27 ratio Normal 7 - 27 ratio AO ADM SS LABORATORYOrdered By: Melodie Swann on 08-17-2024 Cholesterol [Mass/Vol] 208 mg/dL High 0 - 2 00 mg/dL AO ADM SS Comment on above: Interpretive Data: C holesterol Reference Interval: Less than 200 Desirable 200-239 Borderline high risk 240 and above High risk Cholesterol in HDL [Mass/Vol] 61 mg/dL High 40 - 60 mg/dL AO ADM SS Cholesterol in LDL [Mass/Vol] 127 mg/dL Normal 0 - 130 mg/dL AO ADM SS Triglyceride [Mass/Vol] 99 mg/dL Normal 0 - 150 mg/dL AO ADM SS Comment on above: Interpretive Data: T riglyceride Reference Interval: Less than 150 Normal 150-199 Borderline high risk 200-499 High risk 500 or higher Very high risk LIPIDon 08-17-2024 Cholesterol [Mass/Vol] 208 mg/dL High 0-200 [facility] Comment on above: Result Comment: Chol esterol Reference Interval: Less than 200 Desirable 200-239 Borderline high risk 240 and above High risk Performed By: #### T SH, GFR, A1C, LIPID, CMP, VIDH #### [place] [id number] [place], [place] [address] Cholesterol in HDL [Mass/Vol] 61 mg/dL High 40-60 [facility] Comment on above: Performed By: #### T SH, GFR, A1C, LIPID, CMP, VIDH #### [place] [address] Cholesterol in LDL [Mass/Vol] 127 mg/dL Normal 0-130 [facility] Comment on above: Performed By: #### T SH, GFR, A1C, LIPID, CMP, VIDH #### [place] [address] Triglyceride [Mass/Vol] 99 mg/dL Normal 0-150 [facility] Comment on above: Result Comment: Trig lyceride Reference Interval: Less than 150 Normal 150-199 Borderline high risk 200-499 High risk 500 or higher Very high risk Performed By: #### T SH, GFR, A1C, LIPID, CMP, VIDH #### [address] [address] TSHon 08-17-2024 TSH Qn 0.44 m[IU]/L Normal 0.36-3.74 [facility] Comment on above: Performed By: #### T SH, GFR, A1C, LIPID, CMP, VIDH #### [address] [address] VIDHon 08-17-2024 Vit. D 25-Hydroxy 21.8 ng/mL Normal [facility] Comment on above: Result Comment: Inte rpretive Values Based on Total 25(OH) Vitamin D: Deficient <20 ng/mL Insufficient 20 - <30 ng/mL Sufficient 30-100 ng/mL Performed By: #### T SH, GFR, A1C, LIPID, CMP, VIDH #### [address] [address] Absolute neutrophil countOrd ered By: Lena Hernandez on 08-10-2024 Neutrophils (Bld) [#/Vol] 5.4 10*3/uL 2.0-7.7 [facility] Albumin to globulin ratioOrd ered By: Lena Hernandez on 08-10-2024 Albumin/Globulin [Mass ratio] 1.2 {ratio} 0.9-2.4 [facility] Basophil percentageOrdered B y: Lena Hernandez on 08-10-2024 Basophils/100 WBC (Bld) 1.1 % High 0-1 [facility] Bilirubin, totalOrdered By: Lena Hernandez on 08-10-2024 Bilirubin [Mass/Vol] 0.40 mg/dL 0.20-1.00 [facility] Comment on above: For patients on eltr ombopag therapy, use of Dimension [place] TBIL is not recommended. Blood urea nitrogen (BUN)/cr eatinine ratioOrdered By: Lena Hernandez on 08-10-2024 Urea nitrogen/Creatinine [Mass ratio] 18.7 mg/mg 10-20 [facility] CBC W/Diff, Automatedon Absolute Lymph 2.20 X10 3/uL Normal 0.83-4.51 [facility] Comment on above: Performed By: #### L 500.4050, L100.0100 #### [facility] [address] [place], [address] Absolute Neut 5.4 X10 3/uL Normal 2.0-7.7 [facility] Comment on above: Performed By: #### L 500.4050, L100.0100 #### [facility] [address] [place], [address] Basophils/100 WBC (Bld) 1.1 % High 0-1 [facility] Comment on above: Performed By: #### L 500.4050, L100.0100 #### [facility] [address] [place], [address] Eosinophils/100 WBC (Bld) 2.8 % Normal 0-5 [facility] Comment on above: Performed By: #### L 500.4050, L100.0100 #### [facility] [address] [place], [address] Erythrocyte distribution width (RBC) [Ratio] 13.4 % Normal 11.6-14.6 [facility] Comment on above: Performed By: #### L 500.4050, L100.0100 #### [facility] [address] [place], [address] Hematocrit (Bld) [Volume fraction] 38.7 % Normal 37-47 [facility] Comment on above: Performed By: #### L 500.4050, L100.0100 #### [facility] [address] [place], [address] Hemoglobin (Bld) [Mass/Vol] 12.6 g/dL Normal 12.0-15.0 [facility] Comment on above: Performed By: #### L 500.4050, L100.0100 #### [facility] [address] [place], [address] IG% 0.600 Normal 0.0-0.9 [facility] Comment on above: Result Comment: IG% - Immature Granulocytes (promyelocytes, myelocytes and metamyelocytes) > 1% indicates that a LEFT SHIFT is Present. Performed By: #### L 500.4050, L100.0100 #### [facility] [address] [place], [address] Lymphocytes/100 WBC (Bld) 25.3 % Normal 19-41 [facility] Comment on above: Performed By: #### L 500.4050, L100.0100 #### [facility] [address] [place], [address] MCH (RBC) [Entitic mass] 27.0 pg Normal 27.0-32.0 [facility] Comment on above: Performed By: #### L 500.4050, L100.0100 #### [facility] [address] [place], [address] MCHC (RBC) [Mass/Vol] 32.6 g/dL Normal 32-36 [facility] Comment on above: Performed By: #### L 500.4050, L100.0100 #### [facility] [address] [place], [address] MCV (RBC) [Entitic vol] 83.0 fL Normal 81-99 [facility] Comment on above: Performed By: #### L 500.4050, L100.0100 #### [facility] [address] [place], [address] Monocytes/100 WBC (Bld) 7.7 % Normal 0-10 [facility] Comment on above: Performed By: #### L 500.4050, L100.0100 #### [facility] [address] [place], [address] Neutrophils/100 WBC (Bld) 62.5 % Normal 47-70 [facility] Comment on above: Performed By: #### L 500.4050, L100.0100 #### [facility] [address] [place], [address] Nucleated RBC (Bld) [#/Vol] 0 10*3/uL Normal 0-5 [facility] Comment on above: Performed By: #### L 500.4050, L100.0100 #### [facility] [address] [place], [address] Platelet mean volume (Bld) [Entitic vol] 10.4 fL Normal 6.2-12.0 [facility] Comment on above: Performed By: #### L 500.4050, L100.0100 #### [facility] [address] [place], [address] Platelets (Bld) [#/Vol] 235 10*3/uL Normal 150-450 [facility] Comment on above: Performed By: #### L 500.4050, L100.0100 #### [facility] [address] [place], [address] RBC (Bld) [#/Vol] 4.66 10*6/uL Normal 4.2-5.4 [facility] Comment on above: Performed By: #### L 500.4050, L100.0100 #### [facility] [address] [place], [address] RDW SD 40.4 fl Normal 35.1-43.9 [facility] Comment on above: Performed By: #### L 500.4050, L100.0100 #### [facility] [address] [place], [address] WBC (Bld) [#/Vol] 8.7 10*3/uL Normal 4.4-11.0 [facility] Comment on above: Performed By: #### L 500.4050, L100.0100 #### [facility] [address] [place], [address] Carbon dioxide measurementOr dered By: Lena Hernandez on 08-10-2024 CO2 [Moles/Vol] 29.0 mmol/L 21.0-32.0 [facility] Chloride measurementOrdered By: Lena Hernandez on 08-10-2024 Chloride [Moles/Vol] 104 mmol/L 98-107 [facility] Comprehensive Metabolic Prof ilon 08-10-2024 Albumin [Mass/Vol] 3.8 g/dL Normal 3.2-5.0 [facility] Comment on above: Performed By: #### L 500.4050, L100.0100 #### [facility] [address] [place], [address] Albumin/Globulin [Mass ratio] 1.2 {ratio} Normal 0.9-2.4 [facility] Comment on above: Performed By: #### L 500.4050, L100.0100 #### [facility] [address] [place], [address] ALK P 94 U/L Normal 45-117 [facility] Comment on above: Performed By: #### L 500.4050, L100.0100 #### [facility] [address] [place], [address] ALT [Catalytic activity/Vol] 23 U/L Normal 13-56 [facility] [facility] Comment on above: Performed By: #### L 500.4050, L100.0100 #### [facility] [address] [place], [address] AST [Catalytic activity/Vol] 20 U/L Normal 15-37 [facility] Comment on above: Performed By: #### L 500.4050, L100.0100 #### [facility] [address] [place], [address] Bilirubin [Mass/Vol] 0.40 mg/dL Normal 0.20-1.00 [facility] Comment on above: Result Comment: For patients on eltrombopag therapy, use of Dimension [place] TBIL is not recommended. Performed By: #### L 500.4050, L100.0100 #### [facility] [address] [place], [address] BUN/CRE 18.7 RATIO Normal 10-20 [facility] Comment on above: Performed By: #### L 500.4050, L100.0100 #### [facility] [address] [place], [address] CA,Total 8.9 mg/dL Normal 8.5-10.1 [facility] Comment on above: Performed By: #### L 500.4050, L100.0100 #### [facility] [address] [place], [address] Chloride [Moles/Vol] 104 mmol/L Normal 98-107 [facility] Comment on above: Performed By: #### L 500.4050, L100.0100 #### [facility] [address] [place], [address] CO2 [Moles/Vol] 29.0 mmol/L Normal 21.0-32.0 [facility] Comment on above: Performed By: #### L 500.4050, L100.0100 #### [facility] [address] [place], [address] Creatinine [Mass/Vol] 0.96 mg/dL Normal 0.55-1.02 [facility] Comment on above: Result Comment: The validity of the calculated GFR GFRAA in patients over 70 years has not been determined. Clinical correlation is essential. Performed By: #### L 500.4050, L100.0100 #### [facility] [address] [place], [address] EST GFR - AA 77 mL/min Normal >60 [facility] Comment on above: Result Comment: Afri can Libyan GFR Calc Performed By: #### L 500.4050, L100.0100 #### [facility] [address] [place], [address] GAP 5 Normal 5-15 [facility] Comment on above: Performed By: #### L 500.4050, L100.0100 #### [facility] [address] [place], [address] GFR/1.73 sq M.predicted among non-blacks MDRD (S/P/Bld) [Vol rate/Area] 64 mL/min/{1.73_m2} Normal >60 [facility] Comment on above: Result Comment: Non- GFR Calc Performed By: #### L 500.4050, L100.0100 #### [facility] [address] [place], [address] Globulin (S) [Mass/Vol] 3.3 g/dL Normal 2.2-4.2 [facility] Comment on above: Performed By: #### L 500.4050, L100.0100 #### [facility] [address] [place], [address] Glucose [Mass/Vol] 165 mg/dL High 74-106 [facility] Comment on above: Result Comment: Fast ing Glucose result greater than or equal to 126 mg/dL suggests DIABETES MELLITUS per A.D.A. criteria. Performed By: #### L 500.4050, L100.0100 #### [facility] [address] [place], [address] Potassium [Moles/Vol] 4.0 mmol/L Normal 3.5-5.1 [facility] Comment on above: Performed By: #### L 500.4050, L100.0100 #### [facility] [address] [place], [address] Sodium [Moles/Vol] 138 mmol/L Normal 136-145 [facility] Comment on above: Performed By: #### L 500.4050, L100.0100 #### [facility] [address] [place], [address] T PROT 7.1 g/dL Normal 6.4-8.2 [facility] Comment on above: Performed By: #### L 500.4050, L100.0100 #### [facility] [address] [place], [address] Urea nitrogen [Mass/Vol] 18 mg/dL Normal 7-18 [facility] Comment on above: Performed By: #### L 500.4050, L100.0100 #### [facility] [address] [place], [address] Eosinophil percentageOrdered By: Lena Hernandez on 08-10-2024 Eosinophils/100 WBC (Bld) 2.8 % 0-5 [facility] Erythrocyte distribution wid th ratioOrdered By: Lena Hernandez on 08-10-2024 Erythrocyte distribution width (RBC) [Ratio] 13.4 % 11.6-14.6 [facility] Erythrocyte distribution wid th standard deviationOrdered By: Lena Hernandez on 08-10-2024 Erythrocyte distribution width (RBC) [Entitic vol] 40.4 fL 35.1-43.9 [facility] Estimated glomerular filtrat ion rate (GFR) AmericanOrdered By: Lena Hernandez on 08-10-2024 Estimated GFR (MDRD) Amer 77 mL/min >60 [facility] Comment on above: GFR Calc Glomerular filtration rate ( GFR) estimationOrdered By: Lena Hernandez on 08-10-2024 Estimated GFR (MDRD) Non-Af Amer 64 mL/min >60 [facility] Comment on above: Non- GFR Calc Glucose measurementOrdered B y: Lena Hernandez on 08-10-2024 Glucose [Mass/Vol] 165 mg/dL High 74-106 [facility] Comment on above: Fasting Glucose resu lt greater than or equal to 126 mg/dL suggests DIABETES MELLITUS per A.D.A. criteria. Hematocrit Auto (Bld) [Volum e fraction]Ordered By: Lena Hernandez on 08-10-2024 Hematocrit (Bld) [Volume fraction] 38.7 % 37-47 [facility] Hemoglobin measurementOrdere d By: Lena Hernandez on 08-10-2024 Hemoglobin (Bld) [Mass/Vol] 12.6 g/dL 12.0-15.0 [facility] Immature granulocytes/100 WB C Auto (Bld)Ordered By: Lena Hernandez on 08-10-2024 Immature granulocytes/100 WBC (Bld) 0.600 % 0.0-0.9 [facility] Comment on above: IG% - Immature Granu locytes (promyelocytes, myelocytes and metamyelocytes) > 1% indicates that a LEFT SHIFT is Present. Laboratory - Chemistry and C hemistry - challengeOrdered By: Lena Hernandez on 08-10-2024 AST [Catalytic activity/Vol] 20 U/L 15-37 [facility] Lymphocytes Auto (Unsp spec) [#/Vol]Ordered By: Lena Hernandez on 08-10-2024 Lymphocytes (Bld) [#/Vol] 2.20 10*3/uL 0.83-4.51 [facility] Lymphocytes/100 WBC Auto (Un sp spec)Ordered By: Lena Hernandez on 08-10-2024 Lymphocytes/100 WBC (Bld) 25.3 % 19-41 [facility] MCV (mean corpuscular volume ) determinationOrdered By: Lena Hernandez on 08-10-2024 MCV (RBC) [Entitic vol] 83.0 fL 81-99 [facility] Mean corpuscular hemoglobin (MCH) determinationOrdered By: Lena Hernandez on 08-10-2024 MCH (RBC) [Entitic mass] 27.0 pg 27.0-32.0 [facility] Mean corpuscular hemoglobin concentration (MCHC) determinationOrdered By: Lena Hernandez on 08-10-2024 MCHC (RBC) [Mass/Vol] 32.6 g/dL 32-36 [facility] Mean platelet volume determi nationOrdered By: Lena Hernandez on 08-10-2024 Platelet mean volume (Bld) [Entitic vol] 10.4 fL 6.2-12.0 [facility] Monocyte percentageOrdered B y: Lena Hernandez on 08-10-2024 Monocytes/100 WBC (Bld) 7.7 % 0-10 [facility] Neutrophil percentageOrdered By: Lena Hernandez on 08-10-2024 Neutrophils/100 WBC (Bld) 62.5 % 47-70 [facility] Nucleated red blood cell per centageOrdered By: Lena Hernandez on 08-10-2024 Nucleated RBC/100 WBC (Bld) [Ratio] 0 % 0-5 [facility] Platelet countOrdered By: Dominick Hernandez on 08-10-2024 Platelets (Bld) [#/Vol] 235 10*3/uL 150-450 [facility] Potassium measurementOrdered By: Lena Hernandez on 08-10-2024 Potassium [Moles/Vol] 4.0 mmol/L 3.5-5.1 [facility] RBC Auto (Bld) [#/Vol]Ordere d By: Lena Hernandez on 08-10-2024 RBC (Bld) [#/Vol] 4.66 10*6/uL 4.2-5.4 [facility] Serum anion gap measurementO rdered By: Lena Hernandez on 08-10-2024 Anion gap [Moles/Vol] 5 mmol/L 5-15 [facility] Serum globulin measurementOr dered By: Lena Hernandez on 08-10-2024 Globulin (S) [Mass/Vol] 3.3 g/dL 2.2-4.2 [facility] Serum or plasma alanine flannery otransferase (ALT) measurementOrdered By: Lena Hernandez on 08-10-2024 ALT [Catalytic activity/Vol] 23 U/L 13-56 [facility] Serum or plasma albumin james urement (mass/volume)Ordered By: Lena Hernandez on 08-10-2024 Albumin [Mass/Vol] 3.8 g/dL 3.2-5.0 [facility] Serum or plasma alkaline billy sphatase measurementOrdered By: Lena Hernandez on 08-10-2024 ALP [Catalytic activity/Vol] 94 U/L 45-117 [facility] Serum or plasma calcium james urement (mass/volume)Ordered By: Lena Hernandez on 08-10-2024 Calcium [Mass/Vol] 8.9 mg/dL 8.5-10.1 [facility] Serum or plasma creatinine m easurement (mass/volume)Ordered By: Lena Hernandez on 08-10-2024 Creatinine [Mass/Vol] 0.96 mg/dL 0.55-1.02 [facility] Comment on above: The validity of the calculated GFR & GFRAA in patients over 70 years has not been determined. Clinical correlation is essential. Serum or plasma urea nitroge n measurement (mass/volume)Ordered By: Lena Hernandez on 08-10-2024 Urea nitrogen [Mass/Vol] 18 mg/dL 7-18 [facility] Sodium levelOrdered By: Bib Hernandez on 08-10-2024 Sodium [Moles/Vol] 138 mmol/L 136-145 [facility] Total proteinOrdered By: Steffany Hernandez on 08-10-2024 Protein [Mass/Vol] 7.1 g/dL 6.4-8.2 [facility] White blood cell (WBC) count Ordered By: Lena Hernandez on 12-03-2024 WBC (Bld) [#/Vol] 8.7 10*3/uL 4.4-11.0 [facility] .GFRon 05-18-2024 GFR 95 ml/min/1.73sqm Normal [facility] Comment on above: Result Comment: GFR Population mean for , Non- Americans Ages 20-29 = 116 mL/min/1.73 sq.m. Ages 30-39 = 107 mL/min/1.73 sq.m. Ages 40-49 = 99 mL/min/1.73 sq.m. Ages 50-59 = 93 mL/min/1.73 sq.m. Ages 60-69 = 85 mL/min/1.73 sq.m. Ages 70+ = 75 mL/min/1.73 sq.m. Chronic Kidney Disease: Less than 60 mL/min/1.73 square meters End Stage Renal Disease: Less than 15 mL/min/1.73 square meters Performed By: #### A 1C, GFR, LIPID, CMP #### [address] [address] GFR Non- 79 ml/min/1.73sqm Normal [facility] Comment on above: Result Comment: GFR Population mean for , Non- Americans Ages 20-29 = 116 mL/min/1.73 sq.m. Ages 30-39 = 107 mL/min/1.73 sq.m. Ages 40-49 = 99 mL/min/1.73 sq.m. Ages 50-59 = 93 mL/min/1.73 sq.m. Ages 60-69 = 85 mL/min/1.73 sq.m. Ages 70+ = 75 mL/min/1.73 sq.m. Chronic Kidney Disease: Less than 60 mL/min/1.73 square meters End Stage Renal Disease: Less than 15 mL/min/1.73 square meters Performed By: #### A 1C, GFR, LIPID, CMP #### [address] [place], [place] [address] A1Con 05-18-2024 Glucose [Mass/Vol] 169 mg/dL Normal [facility] Comment on above: Result Comment: Anyi mated Average Glucose calculated by equation ((28.7xA1C)-46.7) Estimated average glucose (eAG) is a calculated value from Hemoglobin A1C and is asset protection representative of the average blood glucose level in the last 2-3 month period. Normal range: less than 114 mg/dL Performed By: #### A 1C, GFR, LIPID, CMP #### [address] [address] HbA1c (Bld) [Mass fraction] 7.5 % High 4.3-6.4 [facility] Comment on above: Performed By: #### A 1C, GFR, LIPID, CMP #### [address] [address] CMPon 05-18-2024 Albumin Level 4.0 G/dL Normal 3.5-5.0 [facility] Comment on above: Performed By: #### A 1C, GFR, LIPID, CMP #### [address] [address] Albumin/Globulin [Mass ratio] 1.3 {ratio} Normal 1.1-2.5 [facility] Comment on above: Performed By: #### A 1C, GFR, LIPID, CMP #### [address] [address] ALP [Catalytic activity/Vol] 102 U/L Normal 40-135 [facility] Comment on above: Performed By: #### A 1C, GFR, LIPID, CMP #### [address] [address] ALT [Catalytic activity/Vol] 30 U/L Normal 14-59 [facility] Comment on above: Performed By: #### A 1C, GFR, LIPID, CMP #### [address] [address] AST [Catalytic activity/Vol] 23 U/L Normal 10-40 [facility] Comment on above: Performed By: #### A 1C, GFR, LIPID, CMP #### [address] [address] Bili Total 0.3 mg/dL Normal 0.2-1.0 [facility] Comment on above: Result Comment: Use of this assay is not recommended for patients undergoing treatment with eltrombopag due to the potential for falsely elevated results. Performed By: #### A 1C, GFR, LIPID, CMP #### [place] [address] BUN/Creatinine Ratio 28 ratio High 7-27 [facility] Comment on above: Performed By: #### A 1C, GFR, LIPID, CMP #### [place] [address] Calcium [Mass/Vol] 9.1 mg/dL Normal 8.4-10.2 [facility] Comment on above: Performed By: #### A 1C, GFR, LIPID, CMP #### [place] [address] Chloride [Moles/Vol] 101 mmol/L Normal 98-107 [facility] Comment on above: Performed By: #### A 1C, GFR, LIPID, CMP #### [place] [address] CO2 [Moles/Vol] 28 mmol/L Normal 22-29 [facility] Comment on above: Performed By: #### A 1C, GFR, LIPID, CMP #### [place] [address] Creatinine [Mass/Vol] 0.76 mg/dL Normal 0.55-1.[address] [facility] Comment on above: Result Comment: Test ing performed on Siemens Dimension EXL analyzer using a modified kinetic Jj technique. Performed By: #### A 1C, GFR, LIPID, CMP #### [place] [address] Electrolyte Balance 9.0 mEq/L Normal 4.0-15.0 [facility] Comment on above: Performed By: #### A 1C, GFR, LIPID, CMP #### [place] [address] Globulin 3.1 G/dL Normal [facility] Comment on above: Performed By: #### A 1C, GFR, LIPID, CMP #### [address] [place], [place] [address] Glucose [Mass/Vol] 140 mg/dL High 70-105 [facility] Comment on above: Performed By: #### A 1C, GFR, LIPID, CMP #### [address] [place], [place] [address] Potassium [Moles/Vol] 4.4 mmol/L Normal 3.5-5.[address] [facility] Comment on above: Performed By: #### A 1C, GFR, LIPID, CMP #### [address] [place], [place] [address] Sodium [Moles/Vol] 138 mmol/L Normal 136-145 [facility] Comment on above: Performed By: #### A 1C, GFR, LIPID, CMP #### [address] [address] Total Protein 7.1 G/dL Normal 6.4-8.2 [facility] Comment on above: Performed By: #### A 1C, GFR, LIPID, CMP #### [address] [address] Urea nitrogen [Mass/Vol] 21 mg/dL High 7-18 [facility] Comment on above: Performed By: #### A 1C, GFR, LIPID, CMP #### [address] [address] LABORATORYOrdered By: SYSTEM SYSTEM on 05-18-2024 Albumin BCP dye [Mass/Vol] 4.0 G/dL Normal 3.5 - 5.0 G/dL AO ADM SS Albumin/Globulin [Mass ratio] 1.3 {ratio} Normal 1.1 - 2.5 ratio AO ADM SS ALP [Catalytic activity/Vol] 102 U/L Normal 40 - 135 U/L AO ADM SS ALT With P-5'-P [Catalytic activity/Vol] 30 U/L Normal 14 - 59 U/L AO ADM SS AST With P-5'-P [Catalytic activity/Vol] 23 U/L Normal 10 - 40 U/L AO ADM SS Bilirubin [Mass/Vol] 0.3 mg/dL Normal 0.2 - 1 .0 mg/dL AO ADM SS Comment on above: Interpretive Data: U se of this assay is not recommended for patients undergoing treatment with eltrombopag due to the potential for falsely elevated results. Calcium [Mass/Vol] 9.1 mg/dL Normal 8.4 - 10. 2 mg/dL AO AD[facility] Chloride [Moles/Vol] 101 mmol/L Normal 98 - 10 7 mmol/L AO AD[facility] CO2 [Moles/Vol] 28 mmol/L Normal 22 - 29 mmol/L AO AD[facility] Creatinine [Mass/Vol] 0.76 mg/dL Normal 0.55 - 1.02 mg/dL [facility] Comment on above: Interpretive Data: T esting performed on Siemens Dimension EXL analyzer using a modified kinetic Jj technique. Electrolyte Balance 9.0 mEq/L Normal 4.0 - 15 .0 mEq/L AO ADM SS GFR/1.73 sq M.predicted among blacks MDRD (S/P/Bld) [Vol rate/Area] 95 ml/min/1.73sqm Invalid Interpretation Code AO Chemistry S Comment on above: Interpretive Data: GFR Population mean for , Non- Americans Ages 20-29 = 116 mL/min/1.73 sq.m. Ages 30-39 = 107 mL/min/1.73 sq.m. Ages 40-49 = 99 mL/min/1.73 sq.m. Ages 50-59 = 93 mL/min/1.73 sq.m. Ages 60-69 = 85 mL/min/1.73 sq.m. Ages 70+ = 75 mL/min/1.73 sq.m. Chronic Kidney Disease: Less than 60 mL/min/1.73 square meters End Stage Renal Disease: Less than 15 mL/min/1.73 square meters GFR/1.73 sq M.predicted among non-blacks MDRD (S/P/Bld) [Vol rate/Area] 79 ml/min/1.73sqm Invalid Interpretation Code AO Chemistry S Comment on above: Interpretive Data: GFR Population mean for , Non- Americans Ages 20-29 = 116 mL/min/1.73 sq.m. Ages 30-39 = 107 mL/min/1.73 sq.m. Ages 40-49 = 99 mL/min/1.73 sq.m. Ages 50-59 = 93 mL/min/1.73 sq.m. Ages 60-69 = 85 mL/min/1.73 sq.m. Ages 70+ = 75 mL/min/1.73 sq.m. Chronic Kidney Disease: Less than 60 mL/min/1.73 square meters End Stage Renal Disease: Less than 15 mL/min/1.73 square meters Globulin 3.1 G/dL Invalid Interpretation Code AO ADM SS Glucose [Mass/Vol] 140 mg/dL High 70 - 105 mg/dL AO ADM SS Glucose [Mass/Vol] 169 mg/dL Invalid Interpretation Code AO Chemistry S Comment on above: Interpretive Data: E stimated average glucose (eAG) is a calculated value from Hemoglobin A1C and is asset protection representative of the average blood glucose level in the last 2-3 month period. Normal range: less than 114 mg/dL HbA1c (Bld) [Mass fraction] 7.5 % High 4.3 - 6.4 % AO ADM SS Potassium [Moles/Vol] 4.4 mmol/L Normal 3.5 - 5.1 mmol/L AO ADM SS Protein [Mass/Vol] 7.1 G/dL Normal 6.4 - 8.2 G/dL AO ADM SS Sodium [Moles/Vol] 138 mmol/L Normal 136 - 145 mmol/L AO ADM SS Urea nitrogen [Mass/Vol] 21 mg/dL High 7 - 18 mg/dL AO ADM SS Urea nitrogen/Creatinine [Mass ratio] 28 ratio High 7 - 27 ratio AO ADM SS LABORATORYOrdered By: Rory Souza on 05-18-2024 Cholesterol [Mass/Vol] 170 mg/dL Normal 0 - 2 00 mg/dL AO ADM SS Comment on above: Interpretive Data: C holesterol Reference Interval: Less than 200 Desirable 200-239 Borderline high risk 240 and above High risk Cholesterol in HDL [Mass/Vol] 56 mg/dL Normal 40 - 60 mg/dL AO ADM SS Cholesterol in LDL [Mass/Vol] 100 mg/dL Normal 0 - 130 mg/dL AO ADM SS Triglyceride [Mass/Vol] 71 mg/dL Normal 0 - 150 mg/dL AO ADM SS Comment on above: Interpretive Data: T riglyceride Reference Interval: Less than 150 Normal 150-199 Borderline high risk 200-499 High risk 500 or higher Very high risk LIPIDon 05-18-2024 Cholesterol [Mass/Vol] 170 mg/dL Normal 0-200 [facility] Comment on above: Result Comment: Chol esterol Reference Interval: Less than 200 Desirable 200-239 Borderline high risk 240 and above High risk Performed By: #### T SH, GFR, A1C, LIPID, CMP, VIDH #### [address] [place], [place] [address] Cholesterol in HDL [Mass/Vol] 56 mg/dL Normal 40-60 [facility] Comment on above: Performed By: #### T SH, GFR, A1C, LIPID, CMP, VIDH #### [address] [place], [place] [address] Cholesterol in LDL [Mass/Vol] 100 mg/dL Normal 0-130 [facility] Comment on above: Performed By: #### T SH, GFR, A1C, LIPID, CMP, VIDH #### [address] [place], [place] [address] Triglyceride [Mass/Vol] 71 mg/dL Normal 0-150 [facility] Comment on above: Result Comment: Trig lyceride Reference Interval: Less than 150 Normal 150-199 Borderline high risk 200-499 High risk 500 or higher Very high risk Performed By: #### T SH, GFR, A1C, LIPID, CMP, VIDH #### [address] [address] No Panel Informationon 03-16 Culture Urine 10,000 - 50,000 cfu/ ml Mixed growth consistent with normal urogenital joyce. [facility] Work Phone: Absolute lymphocyte countOrd ered By: Lena Hernandez on 11-12-2023 Lymphocytes Auto (Unsp spec) [#/Vol] 2.07 10*3/uL 0.83-4.51 [facility] Automated lymphocyte count a s percentage of total leukocytesOrdered By: Lena Hernandez on 11-12-2023 Lymphocytes/100 WBC Auto (Unsp spec) 22.2 % 19-41 [facility] Basophil percentageOrdered B y: Lena Hernandez on 11-12-2023 Basophils/100 WBC (Bld) 1.3 % 0-1 [facility] Bilirubin [Mass/Vol] 0.40 mg/dL 0.20-1.00 [facility] Comment on above: For patients on eltr ombopag therapy, use of Dimension [place] TBIL is not recommended. Chloride [Moles/Vol] 105 mmol/L 98-107 [facility] Eosinophils/100 WBC (Bld) 0.5 % 0-5 [facility] Glucose [Mass/Vol] 124 mg/dL 74-106 [facility] Comment on above: Fasting Glucose resu lt from 100 to 125 mg/dL suggests IMPAIRED HOMEOSTASIS per A.D.A. criteria. Hemoglobin (Bld) [Mass/Vol] 13.5 g/dL 12.0-15.0 [facility] Monocytes/100 WBC (Bld) 5.0 % 0-10 [facility] Neutrophils (Bld) [#/Vol] 6.5 10*3/uL 2.0-7.7 [facility] Neutrophils/100 WBC (Bld) 69.9 % 47-70 [facility] Potassium [Moles/Vol] 4.0 mmol/L 3.5-5.1 [facility] Protein [Mass/Vol] 7.5 g/dL 6.4-8.2 [facility] Sodium [Moles/Vol] 138 mmol/L 136-145 [facility] WBC (Bld) [#/Vol] 9.3 10*3/uL 4.4-11.0 [facility] Determination of erythrocyte mean corpuscular volume (MCV)Ordered By: Lena Hernandez on 11-12-2023 MCV (RBC) [Entitic vol] 81.5 fL 81-99 [facility] Erythrocyte distribution wid th ratioOrdered By: Lena Hernandez on 11-12-2023 Erythrocyte distribution width (RBC) [Ratio] 13.6 % 11.6-14.6 [facility] Erythrocyte distribution wid th standard deviationOrdered By: Lena Hernandez on 11-12-2023 Erythrocyte distribution width (RBC) [Entitic vol] 39.9 fL 35.1-43.9 [facility] Hematocrit Auto (Bld) [Volum e fraction]Ordered By: Lena Hernandez on 11-12-2023 Hematocrit (Bld) [Volume fraction] 41.5 % 37-47 [facility] Immature granulocytes/100 WB C Auto (Bld)Ordered By: Lena Hernandez on 11-12-2023 Immature granulocytes/100 WBC (Bld) 1.100 % 0.0-0.9 [facility] Comment on above: IG% - Immature Granu locytes (promyelocytes, myelocytes and metamyelocytes) > 1% indicates that a LEFT SHIFT is Present. Laboratory - Chemistry and C hemistry - challengeOrdered By: Lena Hernandez on 11-12-2023 Albumin/Globulin [Mass ratio] 1.1 {ratio} 0.9-2.4 [facility] ALP [Catalytic activity/Vol] 101 U/L 45-117 [facility] ALT [Catalytic activity/Vol] 29 U/L 13-56 [facility] CO2 [Moles/Vol] 27.0 mmol/L 21.0-32.0 [facility] Globulin (S) [Mass/Vol] 3.6 g/dL 2.2-4.2 [facility] Urea nitrogen/Creatinine [Mass ratio] 15.3 mg/mg 10-20 [facility] - Hematology and Cell countsOrdered By: Lena Hernandez on 11-12-2023 MCH (RBC) [Entitic mass] 26.5 pg 27.0-32.0 [facility] MCHC (RBC) [Mass/Vol] 32.5 g/dL 32-36 [facility] Nucleated RBC/100 WBC (Bld) [Ratio] 0 % 0-5 [facility] Platelet mean volume (Bld) [Entitic vol] 10.1 fL 6.2-12.0 [facility] Platelets (Bld) [#/Vol] 307 10*3/uL 150-450 [facility] No Panel InformationOrdered By: Lena Hernandez on 11-12-2023 Estimated GFR (MDRD) Amer 82 mL/min >60 [facility] Comment on above: GFR Calc Estimated GFR (MDRD) Non-Af Amer 68 mL/min >60 [facility] Comment on above: Non- GFR Calc RBC Auto (Bld) [#/Vol]Ordere d By: Lena Hernandez on 11-12-2023 RBC (Bld) [#/Vol] 5.09 10*6/uL 4.2-5.4 [facility] Serum or plasma calcium james urement (mass/volume)Ordered By: Lena Hernandez on 11-12-2023 Calcium [Mass/Vol] 9.5 mg/dL 8.5-10.1 [facility] Serum or plasma creatinine m easurement (mass/volume)Ordered By: Lena Hernandez on 11-12-2023 Creatinine [Mass/Vol] 0.91 mg/dL 0.55-1.02 [facility] Comment on above: The validity of the calculated GFR & GFRAA in patients over 70 years has not been determined. Clinical correlation is essential. Serum or plasma urea nitroge n measurement (mass/volume)Ordered By: Lena Hernandez on 11-12-2023 Urea nitrogen [Mass/Vol] 14 mg/dL 7-18 [facility] Thin prep Papanicolaou smear with manual screeningOrdered By: Lena Hernandez on 11-12-2023 Thin prep Papanicolaou smear with manual screening 3.9 g/dL 3.2-5.0 [facility] Thin prep Papanicolaou smear with manual screening 29 U/L 15-37 [facility] Thin prep Papanicolaou smear with manual screening 6 5-15 [facility] Office Visiton 10-29-2023 Follow-up visit [id number] Salomon Melo 1970 F Date Provider Department Center 10/29/2023 [id number] None No family history on file Level of Service:92761 [facility] OFFICE/OUTPATIENT ESTABLISHED SF MDM 10 MIN Reason for Visit and Comments: Post-op [483] - PO L arthrodesis (5 months Normal [facility] Progress Noteon 10-29-2023 Progress Note [facility] [address] [place] [id number] Dept: [phone] Dept Pravin Lorie 1970 [id number] 10/29/2023 HISTORY OF PRESENT ILLNESS: Pravin is here for her 4.5 month(s) postoperative visit 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 Pravin reports that her pain has decreased overall since the surgery/last visit- she reports some increase in pain the last few days due to overdoing it Pravin reports that her swelling has been minimal Pravin had been instructed to be weight bearing as tolerated on the left lower extremity. Pravin has been compliant with her weight bearing restrictions Pravin has been working on her home exercise program and it is going well- has been swimming as well Pravin denies fevers and chills and [...] to actively move the ankle/foot/toes The medial midfoot/hindfoot and lateral midfoot/hindfoot incisions are healed and benign Tenderness: no areas of tenderness on exam Gait: Ambulates with a mild limp RADIOGRAPHIC INTERPRETATION: 3 weight bearing views of the left foot were obtained and the following is my interpretation of the findings present of the X-rays: Interval bone healing is noted at the subtalar and calcaneocuboid fusion sites with intact hardware. 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 The 2 fully threaded screws crossing the fusion site are intact. REVIEW OF RELATED PREVIOUS DOCUMENTATION: No documents [...] plan moving forward. 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 She agrees with that plan. She will continue to increase her activity level based on her symptoms. If she has any (more content not included)... Normal [facility] .GFRon 10-20-2023 GFR 94 ml/min/1.73sqm Normal [facility] ([place]) Comment on above: Result Comment: GFR Population mean for , Non- Americans Ages 20-29 = 116 mL/min/1.73 sq.m. Ages 30-39 = 107 mL/min/1.73 sq.m. Ages 40-49 = 99 mL/min/1.73 sq.m. Ages 50-59 = 93 mL/min/1.73 sq.m. Ages 60-69 = 85 mL/min/1.73 sq.m. Ages 70+ = 75 mL/min/1.73 sq.m. Chronic Kidney Disease: Less than 60 mL/min/1.73 square meters End Stage Renal Disease: Less than 15 mL/min/1.73 square meters Performed By: #### B MP, GFR #### [facility] [address] [address] GFR Non- 78 ml/min/1.73sqm Normal [facility] ([place]) Comment on above: Result Comment: GFR Population mean for , Non- Americans Ages 20-29 = 116 mL/min/1.73 sq.m. Ages 30-39 = 107 mL/min/1.73 sq.m. Ages 40-49 = 99 mL/min/1.73 sq.m. Ages 50-59 = 93 mL/min/1.73 sq.m. Ages 60-69 = 85 mL/min/1.73 sq.m. Ages 70+ = 75 mL/min/1.73 sq.m. Chronic Kidney Disease: Less than 60 mL/min/1.73 square meters End Stage Renal Disease: Less than 15 mL/min/1.73 square meters Performed By: #### B MP, GFR #### [address] [address] BMPon 10-20-2023 BUN/Creatinine Ratio 14 ratio Normal 7-27 [facility] ([place]) Comment on above: Performed By: #### B MP, GFR #### [facility]ra [address] [address] Calcium [Mass/Vol] 8.9 mg/dL Normal 8.4-10.2 [facility] ([place]) Comment on above: Performed By: #### B MP, GFR #### [facility]ra [address] [address] Chloride [Moles/Vol] 102 mmol/L Normal 98-107 [facility] ([place]) Comment on above: Performed By: #### B MP, GFR #### [address] [address] CO2 [Moles/Vol] 26 mmol/L Normal 22-29 [facility] ([place]) Comment on above: Performed By: #### B MP, GFR #### [address] [address] Creatinine [Mass/Vol] 0.77 mg/dL Normal 0.55-1.02 [facility] ([place]) Comment on above: Performed By: #### B MP, GFR #### [address] [address] Electrolyte Balance 11.0 mEq/L Normal 4.0-15.0 [facility] ([place]) Comment on above: Performed By: #### B MP, GFR #### [address] [address] Glucose [Mass/Vol] 153 mg/dL High 70-105 [facility] ([place]) Comment on above: Performed By: #### B MP, GFR #### [address] [address] Potassium [Moles/Vol] 3.8 mmol/L Normal 3.5-5.1 [facility] ([place]) Comment on above: Performed By: #### B MP, GFR #### [address] [address] Sodium [Moles/Vol] 139 mmol/L Normal 136-145 [facility] ([place]) Comment on above: Performed By: #### B MP, GFR #### [address] [address] Urea nitrogen [Mass/Vol] 11 mg/dL Normal 7-18 [facility] ([place]) Comment on above: Performed By: #### B MP, GFR #### [address] [address] LABORATORYOrdered By: SYSTEM SYSTEM on 10-20-2023 Calcium [Mass/Vol] 8.9 mg/dL Normal 8.4 - 10. 2 mg/dL AO ADM SS Chloride [Moles/Vol] 102 mmol/L Normal 98 - 10 7 mmol/L AO ADM SS CO2 [Moles/Vol] 26 mmol/L Normal 22 - 29 mmol/L AO ADM SS Creatinine [Mass/Vol] 0.77 mg/dL Normal 0.55 - 1.02 mg/dL AO ADM SS Electrolyte Balance 11.0 mEq/L Normal 4.0 - 15 .0 mEq/L AO ADM SS GFR/1.73 sq M.predicted among blacks MDRD (S/P/Bld) [Vol rate/Area] 94 ml/min/1.73sqm Invalid Interpretation Code AO Chemistry S Comment on above: Interpretive Data: GFR Population mean for , Non- Americans Ages 20-29 = 116 mL/min/1.73 sq.m. Ages 30-39 = 107 mL/min/1.73 sq.m. Ages 40-49 = 99 mL/min/1.73 sq.m. Ages 50-59 = 93 mL/min/1.73 sq.m. Ages 60-69 = 85 mL/min/1.73 sq.m. Ages 70+ = 75 mL/min/1.73 sq.m. Chronic Kidney Disease: Less than 60 mL/min/1.73 square meters End Stage Renal Disease: Less than 15 mL/min/1.73 square meters GFR/1.73 sq M.predicted among non-blacks MDRD (S/P/Bld) [Vol rate/Area] 78 ml/min/1.73sqm Invalid Interpretation Code AO Chemistry S Comment on above: Interpretive Data: GFR Population mean for , Non- Americans Ages 20-29 = 116 mL/min/1.73 sq.m. Ages 30-39 = 107 mL/min/1.73 sq.m. Ages 40-49 = 99 mL/min/1.73 sq.m. Ages 50-59 = 93 mL/min/1.73 sq.m. Ages 60-69 = 85 mL/min/1.73 sq.m. Ages 70+ = 75 mL/min/1.73 sq.m. Chronic Kidney Disease: Less than 60 mL/min/1.73 square meters End Stage Renal Disease: Less than 15 mL/min/1.73 square meters Glucose [Mass/Vol] 153 mg/dL High 70 - 105 mg/dL AO ADM SS Potassium [Moles/Vol] 3.8 mmol/L Normal 3.5 - 5.1 mmol/L AO ADM SS Sodium [Moles/Vol] 139 mmol/L Normal 136 - 145 mmol/L AO ADM SS Urea nitrogen [Mass/Vol] 11 mg/dL Normal 7 - 18 mg/dL AO ADM SS Urea nitrogen/Creatinine [Mass ratio] 14 ratio Normal 7 - 27 ratio AO ADM SS Basophil percentageOrdered B y: Cameron Simpson on 10-16-2023 Bilirubin [Mass/Vol] 0.50 mg/dL 0.20-1.00 [facility] Comment on above: For patients on eltr ombopag therapy, use of Dimension [place] TBIL is not recommended. Chloride [Moles/Vol] 105 mmol/L 98-107 [facility] Glucose [Mass/Vol] 166 mg/dL 74-106 [facility] Comment on above: Fasting Glucose resu lt greater than or equal to 126 mg/dL suggests DIABETES MELLITUS per A.D.A. criteria. Potassium [Moles/Vol] 4.0 mmol/L 3.5-5.1 [facility] Protein [Mass/Vol] 7.2 g/dL 6.4-8.2 [facility] Sodium [Moles/Vol] 135 mmol/L 136-145 [facility] Laboratory - Chemistry and C hemistry - challengeOrdered By: Cameron Simpson on 10-16-2023 Albumin/Globulin [Mass ratio] 1.2 {ratio} 0.9-2.4 [facility] ALP [Catalytic activity/Vol] 97 U/L 45-117 [facility] ALT [Catalytic activity/Vol] 32 U/L 13-56 [facility] CO2 [Moles/Vol] 25.0 mmol/L 21.0-32.0 [facility] Globulin (S) [Mass/Vol] 3.3 g/dL 2.2-4.2 [facility] Urea nitrogen/Creatinine [Mass ratio] 19.2 mg/mg 10-20 [facility] No Panel InformationOrdered By: Cameron Simpson on 10-16-2023 Estimated GFR (MDRD) Amer 98 mL/min >60 [facility] Comment on above: GFR Calc Estimated GFR (MDRD) Non-Af Amer 81 mL/min >60 [facility] Comment on above: Non- GFR Calc Urine Microalbumin/Creatinin e Ratio 12.2 mg/g CRE <30 [facility] Vitamin D 25-Hydroxy 30.7 ng/mL [facility] Comment on above: Vitamin D 25(OH) Sta tus Range Deficiency <20 ng/mL (50nmol/L) Insufficiency 20 - 30 ng/mL (50 - 75 nmol/L) Sufficiency 30 - 100 ng/mL (75 - 250 nmol/L) Toxicity >100 ng/mL (>250 nmol/L) Serum or plasma calcium james urement (mass/volume)Ordered By: Cameron Simpson on 10-16-2023 Calcium [Mass/Vol] 9.0 mg/dL 8.5-10.1 [facility] Serum or plasma creatinine m easurement (mass/volume)Ordered By: Cameron Simpson on 10-16-2023 Creatinine [Mass/Vol] 0.78 mg/dL 0.55-1.02 [facility] Comment on above: The validity of the calculated GFR & GFRAA in patients over 70 years has not been determined. Clinical correlation is essential. Serum or plasma urea nitroge n measurement (mass/volume)Ordered By: Cameron Simpson on 10-16-2023 Urea nitrogen [Mass/Vol] 15 mg/dL 7-18 [facility] Thin prep Papanicolaou smear with manual screeningOrdered By: Cameron Simpson on 10-16-2023 Thin prep Papanicolaou smear with manual screening 3.9 g/dL 3.2-5.0 [facility] Thin prep Papanicolaou smear with manual screening 25 U/L 15-37 [facility] Thin prep Papanicolaou smear with manual screening 5 5-15 [facility] Thin prep Papanicolaou smear with manual screening 9.4 mg/L NO RANGE EST. [facility] Urine creatinine measurement (mass/volume)Ordered By: Cameron Simpson on 10-16-2023 Creatinine (U) [Mass/Vol] 77.50 mg/dL NO RANGE EST. [facility] Whole blood hemoglobin A1c/t otal hemoglobin ratio (mass fraction)Ordered By: Cameron Simpson on 10-16-2023 HbA1c (Bld) [Mass fraction] 7.5 % 3.8-5.6 [facility] Comment on above: Normal < 5.7 % Predi abetic 5.7 - 6.4 % Diabetic >or= 6.5 % Please note range changes. Office Visiton 09-03-2023 Follow-up visit [id number] Salomon Melo 1970 F Date Provider Department Center 09/03/2023 [id number] None No family history on file Level of Service:25711 [place] POSTOP FOLLOW UP VISIT RELATED TO ORIGINAL PX Reason for Visit and Comments: Post-op [483] - L foot Normal [facility] Progress Noteon 09-03-2023 Progress Note [facility] [address] [place] [address] [place] [id number] Dept: [phone] Dept Pravin Melo 1970 [id number] 09/03/2023 HISTORY OF PRESENT ILLNESS: Pravin is [...] restrictions Pravin has not started therapy yet rPavin denies fevers and chills and has not [...] shoe. I want Pravin to start by t (more content not included)... Normal [facility] Absolute lymphocyte countOrd ered By: Lena Hernandez on 08-18-2023 Lymphocytes Auto (Unsp spec) [#/Vol] 1.79 10*3/uL 0.83-4.51 [facility] Basophil percentageOrdered B y: Lena Hernandez on 08-18-2023 Basophils/100 WBC (Bld) 0.7 % 0-1 [facility] Bilirubin [Mass/Vol] 0.30 mg/dL 0.20-1.00 [facility] Comment on above: For patients on eltr ombopag therapy, use of Dimension [place] TBIL is not recommended. Chloride [Moles/Vol] 104 mmol/L 98-107 [facility] Eosinophils/100 WBC (Bld) 2.4 % 0-5 [facility] Glucose [Mass/Vol] 168 mg/dL 74-106 [facility] Comment on above: Fasting Glucose resu lt greater than or equal to 126 mg/dL suggests DIABETES MELLITUS per A.D.A. criteria. Neutrophils (Bld) [#/Vol] 4.2 10*3/uL 2.0-7.7 [facility] Neutrophils/100 WBC (Bld) 61.9 % 47-70 [facility] Potassium [Moles/Vol] 3.9 mmol/L 3.5-5.1 [facility] Protein [Mass/Vol] 7.5 g/dL 6.4-8.2 [facility] Sodium [Moles/Vol] 138 mmol/L 136-145 [facility] WBC (Bld) [#/Vol] 6.7 10*3/uL 4.4-11.0 [facility] Blood erythrocytes count (nu mber/volume)Ordered By: Lena Hernandez on 08-18-2023 RBC (Bld) [#/Vol] 5.24 10*6/uL 4.2-5.4 [facility] Blood hemoglobin measurement (mass/volume)Ordered By: Lena Hernandez on 08-18-2023 Hemoglobin (Bld) [Mass/Vol] 13.9 g/dL 12.0-15.0 [facility] Blood lymphocytes/100 leukoc ytesOrdered By: Lena Hernandez on 08-18-2023 Lymphocytes/100 WBC (Bld) 26.7 % 19-41 [facility] Blood monocytes/100 leukocyt esOrdered By: Lena Hernandez on 08-18-2023 Monocytes/100 WBC (Bld) 7.7 % 0-10 [facility] Blood platelet mean volumeOr dered By: Lena Hernandez on 08-18-2023 Platelet mean volume (Bld) [Entitic vol] 10.9 fL 6.2-12.0 [facility] Determination of erythrocyte mean corpuscular volume (MCV)Ordered By: Lena Hernandez on 08-18-2023 MCV (RBC) [Entitic vol] 83.6 fL 81-99 [facility] Hematocrit Auto (Bld) [Volum e fraction]Ordered By: Lena Hernandez on 08-18-2023 Hematocrit (Bld) [Volume fraction] 43.8 % 37-47 [facility] Laboratory - Chemistry and C hemistry - challengeOrdered By: Lenachrystal Hernandez on 08-18-2023 ALP [Catalytic activity/Vol] 100 U/L 45-117 [facility] ALT [Catalytic activity/Vol] 22 U/L 13-56 [facility] CO2 [Moles/Vol] 27.0 mmol/L 21.0-32.0 [facility] Globulin (S) [Mass/Vol] 3.5 g/dL 2.2-4.2 [facility] Urea nitrogen/Creatinine [Mass ratio] 16.2 mg/mg 10-20 [facility] Laboratory - Hematology and Cell countsOrdered By: Lena Hernandez on 08-18-2023 Erythrocyte distribution width (RBC) [Entitic vol] 40.7 fL 35.1-43.9 [facility] Erythrocyte distribution width (RBC) [Ratio] 13.3 % 11.6-14.6 [facility] Immature granulocytes/100 WBC (Bld) 0.600 % 0.0-0.9 [facility] Comment on above: IG% - Immature Granu locytes (promyelocytes, myelocytes and metamyelocytes) > 1% indicates that a LEFT SHIFT is Present. MCH (RBC) [Entitic mass] 26.5 pg 27.0-32.0 [facility] Nucleated RBC/100 WBC (Bld) [Ratio] 0 % 0-5 [facility] MCHC Auto (RBC) [Mass/Vol]Or dered By: Lena Hernandez on 08-18-2023 MCHC (RBC) [Mass/Vol] 31.7 g/dL 32-36 [facility] No Panel InformationOrdered By: Lena Hernandez on 08-18-2023 Estimated GFR (MDRD) Amer 96 mL/min >60 [facility] Comment on above: GFR Calc Estimated GFR (MDRD) Non-Af Amer 79 mL/min >60 [facility] Comment on above: Non- GFR Calc Platelets bldOrdered By: Steffany Hernandez on 08-18-2023 Platelets (Bld) [#/Vol] 277 10*3/uL 150-450 [facility] Qualitative QuantiFERON-TB g old in tube testOrdered By: Lena Hernandez on 08-18-2023 M. tuberculosis tuberculin stim IFN-g Ql (Bld) 0 IU/mL . [facility] Serum or plasma albumin james urement (mass/volume)Ordered By: Lena Hernandez on 08-18-2023 Albumin [Mass/Vol] 4.0 g/dL 3.2-5.0 [facility] Serum or plasma albumin/glob ulin mass ratioOrdered By: Lena Hernandez on 08-18-2023 Albumin/Globulin [Mass ratio] 1.1 {ratio} 0.9-2.4 [facility] Serum or plasma calcium james urement (mass/volume)Ordered By: Lena Hernandez on 08-18-2023 Calcium [Mass/Vol] 8.9 mg/dL 8.5-10.1 [facility] Serum or plasma creatinine m easurement (mass/volume)Ordered By: Lena Hernandez on 08-18-2023 Creatinine [Mass/Vol] 0.80 mg/dL 0.55-1.02 [facility] Comment on above: The validity of the calculated GFR & GFRAA in patients over 70 years has not been determined. Clinical correlation is essential. Serum or plasma urea nitroge n measurement (mass/volume)Ordered By: [facility] Mary on 08-18-2023 Urea nitrogen [Mass/Vol] 13 mg/dL 7-18 [facility] Thin prep Papanicolaou smear with manual screeningOrdered By: Lenachrystal Hernandez on 08-18-2023 Thin prep Papanicolaou smear with manual screening 22 U/L 15-37 [facility] Thin prep Papanicolaou smear with manual screening 7 5-15 [facility] Thin prep Papanicolaou smear with manual screening Comment . [facility] Comment on above: QuantiFERON-TB Gold Plus is a qualitative indirect test forM tuberculosis infection (including disease) and isintended for use in conjunction with risk assessment,radiography, and other medical and diagnostic evaluations.The QuantiFERON-TB Gold Plus result is determined bysubtracting the Nil value from either TB antigen (Ag)value. The Mitogen tube serves as a control for the test. Thin prep Papanicolaou smear with manual screening 0 IU/mL . [facility] Thin prep Papanicolaou smear with manual screening 0.01 IU/mL . [facility] Thin prep Papanicolaou smear with manual screening > 10.00 IU/mL . [facility] Thin prep Papanicolaou smear with manual screening Negative Negative [facility] Comment on above: No response to M tub erculosis antigens detected.Infection with M tuberculosis is unlikely, but high riskindividuals should be considered for additional testing(ATS/IDSA/CDC Clinical Practice Guidelines, 2017). Thereference range is an Antigen minus Nil result of <0.35IU/mL.The specimen received for QuantiFERON testing was incubatedby the ordering institution. Specific procedures outlinedin our Directory of Services and in the package insert forthe QuantiFERON Gold (In Tube) test must be followed toenable for proper stimulation of cells for the productionof interferon gamma. Chemiluminescence immunoassaymethodologyPerformed at: - [facility] [address] [id number] Director: Chris Reynoso PhD, Phone: [phone] Office Visiton 07-23-2023 Follow-up visit [id number] Salomon Melo 1970 F Date Provider Department Center 07/23/2023 [id number] None No family history on file Level of Service:91344 [place] POSTOP FOLLOW UP VISIT RELATED TO ORIGINAL PX Reason for Visit and Comments: Post-op [483] - postoperative visit s/p #1?Left??Talonavicular joint fusion, #2 removal deep implant left foot Normal [facility] Progress Noteon 07-23-2023 Progress Note [facility] [address] [place] [id number] Dept: [phone] Dept Pravin Melo 1970 [id number] 07/23/2023 HISTORY OF PRESENT ILLNESS: Pravin is [...] for weightbearing activities. Pravin and I discussed phy (more content not included)... Normal [facility] XR FOOT 3+ VIEWS LEFTon 07-09 XR FOOT 3+ VIEWS LEFT 3 nonweightbearing views of the left foot [...] surgery. No other abnormalities is are noted. Normal [facility] Absolute lymphocyte countOrd ered By: Lena Hernandez on 07-09-2023 Lymphocytes Auto (Unsp spec) [#/Vol] 1.60 10*3/uL 0.83-4.51 [facility] Basophil percentageOrdered B y: Lena Hernandez on 07-09-2023 Basophils/100 WBC (Bld) 1.3 % 0-1 [facility] Bilirubin [Mass/Vol] 0.60 mg/dL 0.20-1.00 [facility] Comment on above: For patients on eltr ombopag therapy, use of Dimension [place] TBIL is not recommended. Chloride [Moles/Vol] 104 mmol/L 98-[address] [facility] Cholesterol [Mass/Vol] 199 mg/dL <200 [facility] Comment on above: <200 mg/dL Desirable 200-240 mg/dL Borderline >240 mg/dL High Risk Eosinophils/100 WBC (Bld) 3.0 % 0-5 [facility] Glucose [Mass/Vol] 144 mg/dL 74-106 [facility] Comment on above: Fasting Glucose resu lt greater than or equal to 126 mg/dL suggests DIABETES MELLITUS per A.D.A. criteria. Neutrophils (Bld) [#/Vol] 3.5 10*3/uL 2.0-7.7 [facility] Neutrophils/100 WBC (Bld) 59.8 % 47-70 [facility] Potassium [Moles/Vol] 4.6 mmol/L 3.5-5.1 [facility] Comment on above: Slight Hemolysis, Re sult may be falsely increased. Protein [Mass/Vol] 7.7 g/dL 6.4-8.2 [facility] Sodium [Moles/Vol] 138 mmol/L 136-145 [facility] Triglyceride [Mass/Vol] 119 mg/dL <199 [facility] Comment on above: The drugs N-Acetylcy steine and Metamizole may falsely depress this assay.Serum Triglycerides Reference Interval Normal <150 mg/dL Borderline high 150 - 199 mg/dL High 200 - 499 mg/dL Very High > or = 500 mg/dL WBC (Bld) [#/Vol] 5.9 10*3/uL 4.4-11.0 [facility] Blood erythrocytes count (nu mber/volume)Ordered By: Lena Hernandez on 07-09-2023 RBC (Bld) [#/Vol] 5.59 10*6/uL 4.2-5.4 [facility] Blood hemoglobin measurement (mass/volume)Ordered By: Lena Hernandez on 07-09-2023 Hemoglobin (Bld) [Mass/Vol] 14.8 g/dL 12.0-15.0 [facility] Blood lymphocytes/100 leukoc ytesOrdered By: Lena Hernandez on 07-09-2023 Lymphocytes/100 WBC (Bld) 27.0 % 19-41 [facility] Blood monocytes/100 leukocyt esOrdered By: Lena Hernandez on 07-09-2023 Monocytes/100 WBC (Bld) 8.4 % 0-10 [facility] Blood platelet mean volumeOr dered By: Lena Hernandez on 07-09-2023 Platelet mean volume (Bld) [Entitic vol] 10.4 fL 6.2-12.0 [facility] Determination of erythrocyte mean corpuscular volume (MCV)Ordered By: Lena Hernandez on 07-09-2023 MCV (RBC) [Entitic vol] 84.3 fL 81-99 [facility] Hematocrit Auto (Bld) [Volum e fraction]Ordered By: [facility] Mary on 07-09-2023 Hematocrit (Bld) [Volume fraction] 47.1 % 37-47 [facility] Laboratory - Chemistry and C hemistry - challengeOrdered By: [facility] Mary on 07-09-2023 ALP [Catalytic activity/Vol] 95 U/L 45-117 [facility] ALT [Catalytic activity/Vol] 26 U/L 13-56 [facility] CO2 [Moles/Vol] 26.0 mmol/L 21.0-32.0 [facility] Globulin (S) [Mass/Vol] 3.7 g/dL 2.2-4.2 [facility] Urea nitrogen/Creatinine [Mass ratio] 24.1 mg/mg 10-20 [facility] Laboratory - Hematology and Cell countsOrdered By: [facility] Mary on 07-09-2023 Erythrocyte distribution width (RBC) [Entitic vol] 41.5 fL 35.1-43.9 [facility] Erythrocyte distribution width (RBC) [Ratio] 13.5 % 11.6-14.6 [facility] Immature granulocytes/100 WBC (Bld) 0.500 % 0.0-0.9 [facility] Comment on above: IG% - Immature Granu locytes (promyelocytes, myelocytes and metamyelocytes) > 1% indicates that a LEFT SHIFT is Present. MCH (RBC) [Entitic mass] 26.5 pg 27.0-32.0 [facility] Nucleated RBC/100 WBC (Bld) [Ratio] 0 % 0-5 [facility] MCHC Auto (RBC) [Mass/Vol]Or dered By: Lena Hernandez on 07-09-2023 MCHC (RBC) [Mass/Vol] 31.4 g/dL 32-36 [facility] No Panel InformationOrdered By: Lena Hernandez on 07-09-2023 Estimated GFR (MDRD) Amer 82 mL/min >60 [facility] Comment on above: GFR Calc Estimated GFR (MDRD) Non-Af Amer 68 mL/min >60 [facility] Comment on above: Non- GFR Calc Follicle Stimulating Hormone 11.3 mIU/mL [facility] Comment on above: NORMAL REFERENCE RAN GES FEMALE FOLLICULAR 2.3 - 12.6 mIU/mL MID-CYCLE PEAK 5.2 - 17.5 mIU/mL LUTEAL 1.7 - 12.9 mIU/mL POST-MENOPAUSAL ON MHT 5.9 - 72.8 mIU/mL NOT ON MHT 12.7 - 132.2 mlU/mL MALE 0.7 - 10.8 mIU/mL Thyroid Stimulating Hormone (TSH) 2.07 uIU/mL 0.358-3.74 [facility] Platelets bldOrdered By: Steffany Hernandez on 07-09-2023 Platelets (Bld) [#/Vol] 249 10*3/uL 150-450 [facility] Serum or plasma albumin james urement (mass/volume)Ordered By: Lena Hernandez on 07-09-2023 Albumin [Mass/Vol] 4.0 g/dL 3.2-5.0 [facility] Serum or plasma albumin/glob ulin mass ratioOrdered By: Lena Hernandez on 07-09-2023 Albumin/Globulin [Mass ratio] 1.1 {ratio} 0.9-2.4 [facility] Serum or plasma calcium james urement (mass/volume)Ordered By: Lena Hernandez on 07-09-2023 Calcium [Mass/Vol] 9.1 mg/dL 8.5-10.1 [facility] Serum or plasma cholesterol in HDL measurement (mass/volume)Ordered By: Lena Hernandez on 07-09-2023 Cholesterol in HDL [Mass/Vol] 59 mg/dL >40 [facility] Comment on above: The drugs N-Acetylcy steine and Metamizole may falsely depress this assay. Reference Range HDL <40 mg/dL Low HDL Cholesterol HDL >or= 60 mg/dL High HDL Cholesterol Serum or plasma cholesterol in VLDL measurement (mass/volume)Ordered By: Lena Hernandez on 07-09-2023 Cholesterol in VLDL [Mass/Vol] 24 mg/dL 5-40 [facility] Serum or plasma creatinine m easurement (mass/volume)Ordered By: Lena Hernandez on 07-09-2023 Creatinine [Mass/Vol] 0.91 mg/dL 0.55-1.02 [facility] Comment on above: The validity of the calculated GFR & GFRAA in patients over 70 years has not been determined. Clinical correlation is essential. Serum or plasma low density lipoprotein (LDL) cholesterol measurement (mass/volume)Ordered By: Lena Hernandez on 07-09-2023 Cholesterol in LDL [Mass/Vol] 116 mg/dL 0-130 [facility] Serum or plasma urea nitroge n measurement (mass/volume)Ordered By: Lena Hernandez on 07-09-2023 Urea nitrogen [Mass/Vol] 22 mg/dL 7-18 [facility] Thin prep Papanicolaou smear with manual screeningOrdered By: [facility] Mary on 07-09-2023 Thin prep Papanicolaou smear with manual screening 34 U/L 15-37 [facility] Comment on above: Slight Hemolysis, Re sult may be falsely increased. Thin prep Papanicolaou smear with manual screening 8 5-15 [facility] Whole blood hemoglobin A1c/t otal hemoglobin ratio (mass fraction)Ordered By: Lena Hernandez on 07-09-2023 HbA1c (Bld) [Mass fraction] 7.5 % 3.8-5.6 [facility] Comment on above: Normal < 5.7 % Predi abetic 5.7 - 6.4 % Diabetic >or= 6.5 % Please note range changes. Office Visiton 06-25-2023 Follow-up visit [id number] Salomon Melo 1970 F Date Provider Department Center 06/25/2023 [id number], [facility] OR None No family history on file Level of Service:64132 [place] POSTOP FOLLOW UP VISIT RELATED TO ORIGINAL PX Reason for Visit and Comments: Post-op [483] Normal [facility] Progress Noteon 06-25-2023 Progress Note [facility] [address] [place] [address] [place] [id number] Dept: [phone] Dept Pravin Melo 1970 [id number] 06/25/2023 HISTORY OF PRESENT ILLNESS: Pravin is here for her 2 week(s) postoperative visit s/p #1 Left Talonavicular joint fusion, #2 removal deep implant left foot Pravin reports that her pain has decreased since the surgery/last visit Prvain reports that her swelling has decreased since [...] Imaging, Post-Op. Electronically signed by DOMINICK Potter [facility] Department of Orthopedic surgery 06/25/2023 1:40 PM Voice recognition was used for portions of this note and although it was reviewed prior to signing some incorrect words or phrases could be present. Normal [facility] CULTURE ANAEROBICon 06-12-20 23 CULTURE ANAEROBIC ANAEROBIC CULTURE Reference No growth at 5 days [ S = SUSCEPTIBLE R = RESISTANT I = INTERMEDIATE S-DD = Susceptible-dose dependent NS = Non-susceptible NO = No Interpretation ] Normal [facility] Comment on above: Order Comment: Pre-o p diagnosis:Pseudarthrosis after fusion or arthrodesis [M96.0] Performed By: #### L [id number] ####[employer] Officer: SILAS JOE ([id number])[address] CULTURE, AEROBIC BACTERIA WI TH GRAM STAINon 06-12-2023 CULTURE, AEROBIC BACTERIA WITH GRAM STAIN CULTURE Reference No growth at 72 hours GRAM STAIN RESULT Reference Few Polymorphonuclear leukocytes per low power field No organisms seen [ S = SUSCEPTIBLE R = RESISTANT I = INTERMEDIATE S-DD = Susceptible-dose dependent NS = Non-susceptible NO = No Interpretation ] Normal [facility] Comment on above: Order Comment: Pre-o p diagnosis:Pseudarthrosis after fusion or arthrodesis [M96.0] Performed By: #### L [id number] ####[employer] Officer: SILAS JOE ([phone])[address] No Panel Informationon 06-12 There is no interpretation needed for this exam. IMAGING Nursing Noteon 06-12-2023 Nursing Note Patient assisted to/ from BR via wheelchair. Patient able to dress self with help from . Discharge instructions reviewed with patient and , both verbalize understanding. No additional questions/concerns or complaints voiced. Patient continues use of incentive spirometer. O2 sats on room air remain above 92%. Patient denies SOB. +occ , strong cough. Patient out to car via wheelchair free of injury. Normal [facility] Nursing Note Patient given incent chance spirometer and instructed on use. Patient able to give correct return demonstration. +deep breathing and coughing exercises performed. Patient denies SOB/CP. Normal [facility] Nursing Note Report given to Angelique Yin Normal [facility] Nursing Note Pt MBS 184 Normal [facility] Nursing Note Report off to Charles Rolle [facility] Nursing Note Received patient fro m OR to PACU with SIGNALER. Patient is sedated on simple mask @6l. No respiratory distress noted. Patient is waking up, will respond to verbal stimuli. Monitor on, Rn bedside. Safety maintained. 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 Fire risk was [...] screws were found and removed. A lamina dandy tender was then placed within the TN joint and distraction was applied. The joint opened without difficulty. A culture was then obtained from the nonunion site. No signs of infection were present. Both opposing bone surfaces were prepped for fusion, removing all fibrous tissue, fully exposing bone on both side and then scaling both opposing bone surfaces with a small Hokeosteotome. The joint was then thoroughly irrigated with [...] achieved. Images were obtained in multiple planes (more content not included)... Normal [facility] POCT glucose meteron 023 Glucose [Mass/Vol] 184 mg/dL High 70 - 100 mg/dL [facility] Interpretation and review of laboratory results Abnormal [facility] Performed by: [facility], [address] [place] [address] CLIA ID: [id number] [facility] [id number] 06-11-2023 [id number] Spoke with Jacque at Dr. Amin's office: per protocol we would have the patient hold her Farxiga for 48 hrs prior to surgery and hold her Rybelsus for 7 days prior to surgery. Patient took both of these meds this morning (06/11/23), her surgery is tomorrow ( 06/12/23) . Patient was instructed not to take either anymore prior to surgery. Jacque said she would let Dr. Amin know that the patient took both of these meds today. Normal [facility] 36on 06-11-[address] Amin spoke with Dr. Olvera, anesthesiologist, at [place] and Dr. Olvera was comfortable with proceeding with surgery tomorrow. I will call Pravin and make her aware she should not take either medication today or tomorrow. Normal [facility] 36 Arline RN at [facility] called to let you know that during Pravin's PAT she found out that Pravin has been taking her Rybelsus and Farxiga. Generally speaking they tell pt to stop taking the Farxiga for 48 hours and the Rybelsus for 1 week. She has stopped taking her mobic for over a week and her Xeljanz for over a month. [facility] PREPROCINSon 06-11-2023 PREPROCINS Medication List Accurate as of June 11, 2023 9:28 AM. Always use your most recent med list. DULoxetine [address] capsule Commonly known as: Cymbalta Notes to patient: Not needed on the day of surgery Farxiga 10 MG Generic drug: dapagliflozin Notes to patient: Not needed on the day of surgery/ HOLD hydroxychloroquine 200 MG tablet Commonly known as: Plaquenil Medication Adjustments for Surgery: Take morning of surgery levothyroxine 150 MCG tablet Commonly known as: Synthroid, Levoxyl Medication Adjustments for Surgery: Take morning of surgery lisinopril 10 MG tablet Notes to patient: Not needed on the day of surgery meloxicam 15 MG tablet Commonly known as: Mobic Notes to patient: On hold/ has not had for 06/05/23 Rybelsus 7 MG tablet Generic drug: semaglutide Notes to patient: Not needed on the day of surgery/ HOLD traMADol 50 MG tablet Commonly known as: Ultram Notes to patient: May take on the day of surgery if needed Xeljanz XR 11 MG tablet sustained-release 24 hour Generic drug: tofacitinib ER Notes to patient: On HOLD/ last dose 05/29/23 Additional Instructions: You may take your prescription pain medication. You may take Tylenol for pain. NO Motrin, ibuprofen or Advil for 24 hours prior to surgery or longer if instructed by your surgeon. NO Aleve or Naprosyn for 5 days prior to surgery or longer if instructed by your surgeon. Follow any instructions given to you by Dr. Amin Shower with an antibacterial soap such as Dial or Safeguard or shower kit provided to you before coming to the hospital. Please shower with Hibiclens the night before and the morning of surgery. Please use clean sheets and clean pj's the night before No makeup, lotion, powder, deodorant or body spays. No hair products. Remove all jewelry and leave it at home. Wear loose comfortable clothing to go home in. You may brush your teeth morning of surgery. Do not wear contacts day of surgery. You may drink clear liquids in the morning, please stop drinking when you get in the car to come to the hospital. Please stick to the low sugar version or sugar free versions of liquids reviewed with you You will be asked for a urine specimen on the DOS to verify status No marijuana (THC), smoking or alcohol for 24 hours prior to surgery. Please arrange for a responsible adult to drive you home after your surgery and that there is a responsible adult with you for 24 hours post discharge. If you have specific questions, please call your surgeon. You will receive a call the day before your surgery to verify your arrival time and date. You will be asked to arrive at least two hours prior to your scheduled surgery time. Please bring your [facility] Surgical folder and medication list with you day of surgery. We encourage you to write down any questions you may have for the surgeon, anesthesiologist, or other members of the surgical team and bring it with you the day of surgery. Please bring photo ID and insurance information. [facility] 36on 06-04-2023 36 Returned patient's c all, Dr. Amin is ok proceeding with surgery. [facility] 36on 06-03-2023 36 Pravin called back today , anxious to find out if her surgery is being scheduled . I advised Grace is out of the office today and she will call her tomorrow when she is in office. Pravin satisfied. Grace please call Pravin . Normal [facility] 36 Should be ok to proceed. [facility] 36on 05-30-2023 36 Received call from patient, she had her A1C taken today and it was 8.0. She states that she is doing better, it has gone down in the past 6 weeks from 8.7 to 8.0. She would like to know if she can proceed with surgery on 06/12 or would you like it closer to 7.0. Please advise. Thank you! [facility] HEMOGLOBIN A1Con 05-30-2023 Glucose [Mass/Vol] 183 mg/dL Normal [facility] Comment on above: Performed By: #### L AB90 ####[employer] Officer: SILAS JOE ([id number])[facility] ([facility])[address] [place] [address] HbA1c (Bld) [Mass fraction] 8.0 % High <5.7 [facility] Comment on above: Result Comment: Norm al less than 5.7% Prediabetes 5.7% to 6.4% Diabetes 6.5% or higher --HgbA1C levels may not be accurate in patients who have renal disease, received recent blood transfusions, are anemic, or who have dyshemoglobinemia. Performed By: #### L AB90 ####[employer] Officer: SILAS JOE ([id number])[facility] [place] [address] Hemoglobin A1con 05-30-2023 Average glucose Estimated from glycated hemoglobin (Bld) [Mass/Vol] 183 mg/dL [facility] HbA1c (Bld) [Mass fraction] 8.0 % High NINF - 5.7 % [facility] Comment on above: Normal less than 5.7 % Prediabetes 5.7% to 6.4% Diabetes 6.5% or higher --HgbA1C levels may not be accurate in patients who have renal disease, received recent blood transfusions, are anemic, or who have dyshemoglobinemia. Interpretation and review of laboratory results Abnormal [facility] 36on 05-28-2023 36 Patient scheduled fo r surgery on 06/12 at [facility] at [facility], PAT will be over the phone, Patient plans to have A1C done this week to proceed with surgery on 06/12. Normal [facility] Office Visiton 05-28-2023 Follow-up visit [id number] Salomon Melo 1970 F Date Provider Department Center 05/28/2023 [id number] None No family history on file Level of Service:72874 [place] OFFICE/OUTPATIENT ESTABLISHED LOW MDM 20-29 MIN (57) Reason for Visit and Comments: Follow-up [073960] - Increased left foot and ankle pain since 05/19/23 Normal [facility] Progress Noteon 05-28-2023 Progress Note [facility] [address] [place] [address] [place] [id number] Dept: [phone] Dept Pravin Lorie 1970 [id number] 05/28/2023 HISTORY OF PRESENT ILLNESS: Pravin is [...] normal structures that (more content not included)... 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 Normal [facility] C-reactive proteinon 023 CRP [Mass/Vol] 11.7 mg/L High NINF - 8.0 mg/L [facility] CBC W Auto Differential pane l (Bld)on 04-17-2023 Basophils (Bld) [#/Vol] 66 10*3/uL [facility] Basophils/100 WBC (Bld) 0.8 % [facility] Eosinophils (Bld) [#/Vol] 141 10*3/uL [facility] Eosinophils/100 WBC (Bld) 1.7 % [facility] Erythrocyte distribution width (RBC) [Ratio] 13.9 % 11.0 - 15.0 % [facility] Hematocrit (Bld) [Volume fraction] 47.8 % High 35.0 - 45.0 % [facility] Hemoglobin (Bld) [Mass/Vol] 15.7 g/dL High 11.7 - 15.5 g/dL [facility] Lymphocytes (Bld) [#/Vol] 2241 10*3/uL [facility] Lymphocytes/100 WBC (Bld) 27.0 % [facility] MCH (RBC) [Entitic mass] 27.0 pg 27.0 - 33.0 pg [facility] MCHC (RBC) [Mass/Vol] 32.8 g/dL 32.0 - 36.0 g/dL [facility] MCV (RBC) [Entitic vol] 82.1 fL 80.0 - 100.0 fL [facility] Monocytes (Bld) [#/Vol] 714 10*3/uL [facility] Monocytes/100 WBC (Bld) 8.6 % [facility] Neutrophils (Bld) [#/Vol] 5138 10*3/uL [facility] Neutrophils/100 WBC (Bld) 61.9 % [facility] Platelet mean volume (Bld) [Entitic vol] 10.5 fL 7.5 - 12.5 fL [facility] Platelets (Bld) [#/Vol] 294 10*3/uL [facility] RBC (Bld) [#/Vol] 5.82 10*6/uL High [facility] WBC (Bld) [#/Vol] 8.3 10*3/uL [facility] Calcium.ionized [Moles/Vol]o n 04-17-2023 Calcium.ionized [Mass/Vol] 5.1 mg/dL 4.7 - 5.5 mg/dL [facility] No Panel Informationon 04-17 Interpretation and review of laboratory results Abnormal [facility] Sedimentation rate, automate don 04-17-2023 ESR (Bld) [Velocity] 9 mm/h < OR = 30 [facility] Vitamin D Deficiency Screeni ng (Vit D 25)on 04-17-2023 25-hydroxyvitamin D3 [Mass/Vol] 28 ng/mL Low 30 - 100 ng/mL [facility] Comment on above: Vitamin D Status 25 -OH Vitamin D: Deficiency: <20 ng/mL Insufficiency: 20 - 29 ng/mL Optimal: > or = 30 ng/mL For 25-OH Vitamin D testing on patients on D2-supplementation and patients for whom quantitation of D2 and D3 fractions is required, the QuestAssureD(TM) 25-OH VIT D, (D2,D3), LC/MS/MS is recommended: order code 34473 (patients >2yrs). See Note 1 Note 1 For additional information, please refer to http://education.ARtunes Radio/faq/EWB882 (This link is being provided for informational/ educational purposes only.) ADDENDUMNOTEon 04-16-2023 ADDENDUMNOTE Addended by: ROCAEL POLO on: 04/21/2023 03:55 PM Modules accepted: Orders Normal [facility] Office Visiton 04-16-2023 Follow-up visit [id number] Salomon Melo 1970 F Date Provider Department Center 04/16/2023 [id number] None No family history on file Level of Service:92815 [place] OFFICE/OUTPATIENT ESTABLISHED MOD MDM 30-39 MIN Reason for Visit and Comments: Post-op [483] - 1 year PO triple, increased pain arch Normal [facility] Progress Noteon 04-16-2023 Progress Note Vitamin D supplement signed, called patient and made her aware Normal [facility] Progress Note [facility] [address] [place] [address] [address] [facility] [phone] Dept: [phone] Dept Pravin Melo 1970 [id number] 04/16/2023 HISTORY OF PRESENT ILLNESS: Pravin is [...] foot, unspecified whether rheumatoid factor present (HCC) Ambulatory referral for Orthotics MEDICAL DECISION MAKING: [...] I asked if her pain was bad andrés (more content not included)... Normal [facility] XR FOOT 3+ VIEWS LEFTon 08-0 XR FOOT 3+ VIEWS LEFT 3 weight bearing v iews of the left ankle were obtained and [...] fused partially with 1 intact crossing screw. Normal [facility] 36on 04-10-2023 36 Spoke to the patient . She is scheduled to [facility] next week with updated xrays Normal [facility] Absolute lymphocyte countOrd ered By: Lena Hernandez on 04-10-2023 Lymphocytes Auto (Unsp spec) [#/Vol] 1.76 10*3/uL 0.83-4.51 [facility] Basophil percentageOrdered B y: Lena Valadezsepideh on 04-10-2023 Basophils/100 WBC (Bld) 1.0 % 0-1 [facility] Bilirubin [Mass/Vol] 0.30 mg/dL 0.20-1.00 [facility] Comment on above: For patients on eltr ombopag therapy, use of Dimension [place] TBIL is not recommended. Chloride [Moles/Vol] 103 mmol/L 98-107 [facility] Eosinophils/100 WBC (Bld) 1.2 % 0-5 [facility] Glucose [Mass/Vol] 173 mg/dL 74-106 [facility] Comment on above: Fasting Glucose resu lt greater than or equal to 126 mg/dL suggests DIABETES MELLITUS per A.D.A. criteria. Neutrophils (Bld) [#/Vol] 4.7 10*3/uL 2.0-7.7 [facility] Neutrophils/100 WBC (Bld) 64.4 % 47-70 [facility] Potassium [Moles/Vol] 4.1 mmol/L 3.5-5.1 [facility] Protein [Mass/Vol] 7.6 g/dL 6.4-8.2 [facility] Sodium [Moles/Vol] 137 mmol/L 136-145 [facility] WBC (Bld) [#/Vol] 7.3 10*3/uL 4.4-11.0 [facility] Blood erythrocytes count (nu mber/volume)Ordered By: Lena Hrenandez on 04-10-2023 RBC (Bld) [#/Vol] 5.29 10*6/uL 4.2-5.4 [facility] Blood hemoglobin measurement (mass/volume)Ordered By: Lena Hernandez on 04-10-2023 Hemoglobin (Bld) [Mass/Vol] 14.1 g/dL 12.0-15.0 [facility] Blood lymphocytes/100 leukoc ytesOrdered By: Lena Hernandez on 04-10-2023 Lymphocytes/100 WBC (Bld) 24.1 % 19-41 [facility] Blood monocytes/100 leukocyt esOrdered By: Lenachrystal Hernandez on 04-10-2023 Monocytes/100 WBC (Bld) 8.5 % 0-10 [facility] Blood platelet mean volumeOr dered By: Lena Hernandez on 04-10-2023 Platelet mean volume (Bld) [Entitic vol] 10.5 fL 6.2-12.0 [facility] Determination of erythrocyte mean corpuscular volume (MCV)Ordered By: Lena Hernandez on 04-10-2023 MCV (RBC) [Entitic vol] 83.9 fL 81-99 [facility] Hematocrit Auto (Bld) [Volum e fraction]Ordered By: Lena Hernandez on 04-10-2023 Hematocrit (Bld) [Volume fraction] 44.4 % 37-47 [facility] - Chemistry and C hemistry - challengeOrdered By: Lena Hernandez on 04-10-2023 ALP [Catalytic activity/Vol] 110 U/L 45-117 [facility] ALT [Catalytic activity/Vol] 28 U/L 13-56 [facility] CO2 [Moles/Vol] 27.0 mmol/L 21.0-32.0 [facility] Globulin (S) [Mass/Vol] 3.8 g/dL 2.2-4.2 [facility] Urea nitrogen/Creatinine [Mass ratio] 22.4 mg/mg 10-20 [facility] - Hematology and Cell countsOrdered By: Lena Hernandez on 04-10-2023 Erythrocyte distribution width (RBC) [Entitic vol] 41.1 fL 35.1-43.9 [facility] Erythrocyte distribution width (RBC) [Ratio] 13.5 % 11.6-14.6 [facility] Immature granulocytes/100 WBC (Bld) 0.800 % 0.0-0.9 [facility] Comment on above: IG% - Immature Granu locytes (promyelocytes, myelocytes and metamyelocytes) > 1% indicates that a LEFT SHIFT is Present. MCH (RBC) [Entitic mass] 26.7 pg 27.0-32.0 [facility] Nucleated RBC/100 WBC (Bld) [Ratio] 0 % 0-5 [facility] MCHC Auto (RBC) [Mass/Vol]Or dered By: Lena Hernandez on 04-10-2023 MCHC (RBC) [Mass/Vol] 31.8 g/dL 32-36 [facility] No Panel InformationOrdered By: Lena Hernandez on 04-10-2023 Estimated GFR (MDRD) Amer 90 mL/min >60 [facility] Comment on above: GFR Calc Estimated GFR (MDRD) Non-Af Amer 74 mL/min >60 [facility] Comment on above: Non- GFR Calc Platelets bldOrdered By: Steffany Hernandez on 04-10-2023 Platelets (Bld) [#/Vol] 254 10*3/uL 150-450 [facility] Serum or plasma albumin james urement (mass/volume)Ordered By: Lena Hernandez on 04-10-2023 Albumin [Mass/Vol] 3.8 g/dL 3.2-5.0 [facility] Serum or plasma albumin/glob ulin mass ratioOrdered By: Lena Hernandez on 04-10-2023 Albumin/Globulin [Mass ratio] 1.0 {ratio} 0.9-2.4 [facility] Serum or plasma calcium james urement (mass/volume)Ordered By: Lena Hernandez on 04-10-2023 Calcium [Mass/Vol] 9.1 mg/dL 8.5-10.1 [facility] Serum or plasma creatinine m easurement (mass/volume)Ordered By: Lena Hernandez on 04-10-2023 Creatinine [Mass/Vol] 0.85 mg/dL 0.55-1.02 [facility] Comment on above: The validity of the calculated GFR & GFRAA in patients over 70 years has not been determined. Clinical correlation is essential. Serum or plasma urea nitroge n measurement (mass/volume)Ordered By: Lena Hernandez on 04-10-2023 Urea nitrogen [Mass/Vol] 19 mg/dL 7-18 [facility] Thin prep Papanicolaou smear with manual screeningOrdered By: Lena Hernandez on 04-10-2023 Thin prep Papanicolaou smear with manual screening 26 U/L 15-37 [facility] Thin prep Papanicolaou smear with manual screening 7 5-15 [facility] Whole blood hemoglobin A1c/t otal hemoglobin ratio (mass fraction)Ordered By: Lena Hernandez on 04-10-2023 HbA1c (Bld) [Mass fraction] 8.7 % 3.8-5.6 [facility] Comment on above: Normal < 5.7 % Predi abetic 5.7 - 6.4 % Diabetic >or= 6.5 % Please note range changes. 36on 04-09-2023 36 Looks like this was sent to [facility] by mistake. Was routed to ortho after us. [facility] 36on 04-08-2023 36 S: Patient spoke wit h [facility] nurse regarding foot pain B: Onset of [...] present > 3 days Protocols used: Foot [id number] [facility] Absolute lymphocyte countOrd ered By: Dr. Simpson on 12-31-2022 Lymphocytes Auto (Unsp spec) [#/Vol] 2.27 10*3/uL 0.83-4.51 [facility] Basophil percentageOrdered B y: Dr. Simpson on 12-31-2022 Basophils/100 WBC (Bld) 0.8 % 0-1 [facility] Bilirubin [Mass/Vol] 0.30 mg/dL 0.20-1.00 [facility] Comment on above: For patients on eltr ombopag therapy, use of Dimension [place] TBIL is not recommended. Chloride [Moles/Vol] 102 mmol/L 98-107 [facility] Eosinophils/100 WBC (Bld) 2.2 % 0-5 [facility] Glucose [Mass/Vol] 231 mg/dL 74-106 [facility] Comment on above: Glucose result great er than or equal to 200 mg/dLsuggests DIABETES MELLITUS per A.D.A. criteria. Neutrophils (Bld) [#/Vol] 6.7 10*3/uL 2.0-7.7 [facility] Neutrophils/100 WBC (Bld) 65.4 % 47-70 [facility] Potassium [Moles/Vol] 3.8 mmol/L 3.5-5.1 [facility] Protein [Mass/Vol] 7.6 g/dL 6.4-8.2 [facility] Sodium [Moles/Vol] 133 mmol/L 136-145 [facility] WBC (Bld) [#/Vol] 10.2 10*3/uL 4.4-11.0 [facility] Blood erythrocytes count (nu mber/volume)Ordered By: Dr. Simpson on 12-31-2022 RBC (Bld) [#/Vol] 5.44 10*6/uL 4.2-5.4 [facility] Blood hemoglobin measurement (mass/volume)Ordered By: Dr. Simpson on 12-31-2022 Hemoglobin (Bld) [Mass/Vol] 14.4 g/dL 12.0-15.0 [facility] Blood lymphocytes/100 leukoc ytesOrdered By: Dr. Simpson on 12-31-2022 Lymphocytes/100 WBC (Bld) 22.2 % 19-41 [facility] Blood monocytes/100 leukocyt esOrdered By: Dr. Simpson on 12-31-2022 Monocytes/100 WBC (Bld) 8.5 % 0-10 [facility] Blood platelet mean volumeOr dered By: Dr. Simpson on 12-31-2022 Platelet mean volume (Bld) [Entitic vol] 9.8 fL 6.2-12.0 [facility] Determination of erythrocyte mean corpuscular volume (MCV)Ordered By: Dr. Simpson on 12-31-2022 MCV (RBC) [Entitic vol] 84.0 fL 81-99 [facility] Hematocrit Auto (Bld) [Volum e fraction]Ordered By: Dr. Simpson on 12-31-2022 Hematocrit (Bld) [Volume fraction] 45.7 % 37-47 [facility] - Chemistry and C hemistry - challengeOrdered By: Dr. Simpson on 12-31-2022 ALP [Catalytic activity/Vol] 143 U/L 45-117 [facility] ALT [Catalytic activity/Vol] 32 U/L 13-56 [facility] CO2 [Moles/Vol] 25.0 mmol/L 21.0-32.0 [facility] Globulin (S) [Mass/Vol] 3.9 g/dL 2.2-4.2 [facility] Urea nitrogen/Creatinine [Mass ratio] 31.2 mg/mg 10-20 [facility] - Hematology and Cell countsOrdered By: Dr. Simpson on 12-31-2022 Erythrocyte distribution width (RBC) [Entitic vol] 41.6 fL 35.1-43.9 [facility] Erythrocyte distribution width (RBC) [Ratio] 13.7 % 11.6-14.6 [facility] Immature granulocytes/100 WBC (Bld) 0.900 % 0.0-0.9 [facility] Comment on above: IG% - Immature Granu locytes (promyelocytes, myelocytes and metamyelocytes) > 1% indicates that a LEFT SHIFT is Present. MCH (RBC) [Entitic mass] 26.5 pg 27.0-32.0 [facility] Nucleated RBC/100 WBC (Bld) [Ratio] 0 % 0-5 [facility] MCHC Auto (RBC) [Mass/Vol]Or dered By: Dr. Simpson on 12-31-2022 MCHC (RBC) [Mass/Vol] 31.5 g/dL 32-36 [facility] No Panel InformationOrdered By: Dr. Simpson on 12-31-2022 Estimated GFR (MDRD) Amer 84 mL/min >60 [facility] Comment on above: GFR Calc Estimated GFR (MDRD) Non-Af Amer 69 mL/min >60 [facility] Comment on above: Non- GFR Calc Thyroid Stimulating Hormone (TSH) 2.73 uIU/mL 0.358-3.74 [facility] Vitamin D 25-Hydroxy 35.6 ng/mL [facility] Comment on above: Vitamin D 25(OH) Sta tus Range Deficiency <20 ng/mL (50nmol/L) Insufficiency 20 - 30 ng/mL (50 - 75 nmol/L) Sufficiency 30 - 100 ng/mL (75 - 250 nmol/L) Toxicity >100 ng/mL (>250 nmol/L) Platelets bldOrdered By: Dr. Simpson on 12-31-2022 Platelets (Bld) [#/Vol] 269 10*3/uL 150-450 [facility] Serum or plasma albumin james urement (mass/volume)Ordered By: Dr. Simpson on 12-31-2022 Albumin [Mass/Vol] 3.7 g/dL 3.2-5.0 [facility] Serum or plasma albumin/glob ulin mass ratioOrdered By: Dr. Simpson on 12-31-2022 Albumin/Globulin [Mass ratio] 0.9 {ratio} 0.9-2.4 [facility] Serum or plasma calcium james urement (mass/volume)Ordered By: Dr. Simpson on 12-31-2022 Calcium [Mass/Vol] 8.8 mg/dL 8.5-10.1 [facility] Serum or plasma creatinine m easurement (mass/volume)Ordered By: Dr. Simpson on 12-31-2022 Creatinine [Mass/Vol] 0.90 mg/dL 0.55-1.02 [facility] Comment on above: The validity of the calculated GFR & GFRAA in patients over 70 years has not been determined. Clinical correlation is essential. Serum or plasma urea nitroge n measurement (mass/volume)Ordered By: Dr. Simpson on 12-31-2022 Urea nitrogen [Mass/Vol] 28 mg/dL 7-18 [facility] Thin prep Papanicolaou smear with manual screeningOrdered By: Dr. Simpson on 12-31-2022 Thin prep Papanicolaou smear with manual screening 15 U/L 15-37 [facility] Thin prep Papanicolaou smear with manual screening 6 5-15 [facility] Whole blood hemoglobin A1c/t otal hemoglobin ratio (mass fraction)Ordered By: Dr. Simpson on 12-31-2022 HbA1c (Bld) [Mass fraction] 7.4 % 3.8-5.6 [facility] Comment on above: Normal < 5.7 % Predi abetic 5.7 - 6.4 % Diabetic >or= 6.5 % Please note range changes. Absolute lymphocyte countOrd ered By: Dr. Hernandez on 10-28-2022 Lymphocytes Auto (Unsp spec) [#/Vol] 2.30 10*3/uL 0.83-4.51 [facility] Basophil percentageOrdered B y: Dr. Hernandez on 10-28-2022 Basophils/100 WBC (Bld) 0.9 % 0-1 [facility] Bilirubin [Mass/Vol] 0.30 mg/dL 0.20-1.00 [facility] Comment on above: For patients on eltr ombopag therapy, use of Dimension [place] TBIL is not recommended. Chloride [Moles/Vol] 104 mmol/L 98-107 [facility] Eosinophils/100 WBC (Bld) 1.7 % 0-5 [facility] Glucose [Mass/Vol] 161 mg/dL 74-106 [facility] Comment on above: Fasting Glucose resu lt greater than or equal to 126 mg/dL suggests DIABETES MELLITUS per A.D.A. criteria. Neutrophils (Bld) [#/Vol] 4.9 10*3/uL 2.0-7.7 [facility] Neutrophils/100 WBC (Bld) 60.5 % 47-70 [facility] Potassium [Moles/Vol] 3.8 mmol/L 3.5-5.1 [facility] Protein [Mass/Vol] 7.5 g/dL 6.4-8.2 [facility] Sodium [Moles/Vol] 137 mmol/L 136-145 [facility] WBC (Bld) [#/Vol] 8.1 10*3/uL 4.4-11.0 [facility] Blood erythrocytes count (nu mber/volume)Ordered By: Dr. Hernandez on 10-28-2022 RBC (Bld) [#/Vol] 4.99 10*6/uL 4.2-5.4 [facility] Blood hemoglobin measurement (mass/volume)Ordered By: Dr. Hernandez on 10-28-2022 Hemoglobin (Bld) [Mass/Vol] 13.3 g/dL 12.0-15.0 [facility] Blood lymphocytes/100 leukoc ytesOrdered By: Dr. Hernandez on 10-28-2022 Lymphocytes/100 WBC (Bld) 28.5 % 19-41 [facility] Blood monocytes/100 leukocyt esOrdered By: Dr. Hernandez on 10-28-2022 Monocytes/100 WBC (Bld) 7.7 % 0-10 [facility] Blood platelet mean volumeOr dered By: Dr. Hernandez on 10-28-2022 Platelet mean volume (Bld) [Entitic vol] 10.3 fL 6.2-12.0 [facility] Determination of erythrocyte mean corpuscular volume (MCV)Ordered By: Dr. Hernandez on 10-28-2022 MCV (RBC) [Entitic vol] 85.2 fL 81-99 [facility] Hematocrit Auto (Bld) [Volum e fraction]Ordered By: Dr. Hernandez on 10-28-2022 Hematocrit (Bld) [Volume fraction] 42.5 % 37-47 [facility] Laboratory - Chemistry and C hemistry - challengeOrdered By: Dr. Hernandez on 10-28-2022 ALP [Catalytic activity/Vol] 110 U/L 45-117 [facility] ALT [Catalytic activity/Vol] 25 U/L 13-56 [facility] CO2 [Moles/Vol] 26.0 mmol/L 21.0-32.0 [facility] Globulin (S) [Mass/Vol] 3.8 g/dL 2.2-4.2 [facility] Urea nitrogen/Creatinine [Mass ratio] 26.7 mg/mg 10-20 [facility] Laboratory - Hematology and Cell countsOrdered By: Dr. Hernandez on 10-28-2022 Erythrocyte distribution width (RBC) [Entitic vol] 43.0 fL 35.1-43.9 [facility] Erythrocyte distribution width (RBC) [Ratio] 14.1 % 11.6-14.6 [facility] Immature granulocytes/100 WBC (Bld) 0.700 % 0.0-0.9 [facility] Comment on above: IG% - Immature Granu locytes (promyelocytes, myelocytes and metamyelocytes) > 1% indicates that a LEFT SHIFT is Present. MCH (RBC) [Entitic mass] 26.7 pg 27.0-32.0 [facility] Nucleated RBC/100 WBC (Bld) [Ratio] 0 % 0-5 [facility] MCHC Auto (RBC) [Mass/Vol]Or dered By: Dr. Hernandez on 10-28-2022 MCHC (RBC) [Mass/Vol] 31.3 g/dL 32-36 [facility] No Panel InformationOrdered By: Dr. Hernandez on 10-28-2022 Estimated GFR (MDRD) Amer 88 mL/min >60 [facility] Comment on above: GFR Calc Estimated GFR (MDRD) Non-Af Amer 73 mL/min >60 [facility] Comment on above: Non- GFR Calc Platelets bldOrdered By: Dr. Hernandez on 10-28-2022 Platelets (Bld) [#/Vol] 247 10*3/uL 150-450 [facility] Serum or plasma albumin james urement (mass/volume)Ordered By: Dr. Hernandez on 10-28-2022 Albumin [Mass/Vol] 3.7 g/dL 3.2-5.0 [facility] Serum or plasma albumin/glob ulin mass ratioOrdered By: Dr. Hernandez on 10-28-2022 Albumin/Globulin [Mass ratio] 1.0 {ratio} 0.9-2.4 [facility] Serum or plasma calcium james urement (mass/volume)Ordered By: Dr. Hernandez on 10-28-2022 Calcium [Mass/Vol] 9.1 mg/dL 8.5-10.1 [facility] Serum or plasma creatinine m easurement (mass/volume)Ordered By: Dr. Hernandez on 10-28-2022 Creatinine [Mass/Vol] 0.86 mg/dL 0.55-1.02 [facility] Comment on above: The validity of the calculated GFR & GFRAA in patients over 70 years has not been determined. Clinical correlation is essential. Serum or plasma urea nitroge n measurement (mass/volume)Ordered By: Dr. Hernandez on 10-28-2022 Urea nitrogen [Mass/Vol] 23 mg/dL 7-18 [facility] Thin prep Papanicolaou smear with manual screeningOrdered By: Dr. Hernandez on 10-28-2022 Thin prep Papanicolaou smear with manual screening 23 U/L 15-37 [facility] Thin prep Papanicolaou smear with manual screening 7 5-15 [facility] Basophil percentageOrdered B y: Dr. Simpson on 09-30-2022 Bilirubin [Mass/Vol] 0.40 mg/dL 0.20-1.00 [facility] Comment on above: For patients on eltr ombopag therapy, use of Dimension [place] TBIL is not recommended. Chloride [Moles/Vol] 104 mmol/L 98-107 [facility] Cholesterol [Mass/Vol] 173 mg/dL <200 [facility] Comment on above: <200 mg/dL Desirable 200-240 mg/dL Borderline >240 mg/dL High Risk Glucose [Mass/Vol] 125 mg/dL 74-106 [facility] Comment on above: Fasting Glucose resu lt from 100 to 125 mg/dL suggests IMPAIRED HOMEOSTASIS per A.D.A. criteria. Potassium [Moles/Vol] 4.3 mmol/L 3.5-5.1 [facility] Protein [Mass/Vol] 7.5 g/dL 6.4-8.2 [facility] Sodium [Moles/Vol] 137 mmol/L 136-145 [facility] Triglyceride [Mass/Vol] 97 mg/dL <199 [facility] Comment on above: The drugs N-Acetylcy steine and Metamizole may falsely depress this assay.Serum Triglycerides Reference Interval Normal <150 mg/dL Borderline high 150 - 199 mg/dL High 200 - 499 mg/dL Very High > or = 500 mg/dL Laboratory - Chemistry and C hemistry - challengeOrdered By: Dr. Simpson on 09-30-2022 ALP [Catalytic activity/Vol] 91 U/L 45-117 [facility] ALT [Catalytic activity/Vol] 22 U/L 13-56 [facility] CO2 [Moles/Vol] 24.0 mmol/L 21.0-32.0 [facility] Globulin (S) [Mass/Vol] 3.6 g/dL 2.2-4.2 [facility] Urea nitrogen/Creatinine [Mass ratio] 29.8 mg/mg 10-20 [facility] No Panel InformationOrdered By: Dr. Simpson on 09-30-2022 Estimated GFR (MDRD) Amer 91 mL/min >60 [facility] Comment on above: GFR Calc Estimated GFR (MDRD) Non-Af Amer 75 mL/min >60 [facility] Comment on above: Non- GFR Calc Thyroid Stimulating Hormone (TSH) 0.93 uIU/mL 0.358-3.74 [facility] Urine Microalbumin/Creatinin e Ratio 19.0 mg/g CRE <30 [facility] Serum or plasma albumin james urement (mass/volume)Ordered By: Dr. Simpson on 09-30-2022 Albumin [Mass/Vol] 3.9 g/dL 3.2-5.0 [facility] Serum or plasma albumin/glob ulin mass ratioOrdered By: Dr. Simpson on 09-30-2022 Albumin/Globulin [Mass ratio] 1.1 {ratio} 0.9-2.4 [facility] Serum or plasma calcium james urement (mass/volume)Ordered By: Dr. Simpson on 09-30-2022 Calcium [Mass/Vol] 9.3 mg/dL 8.5-10.1 [facility] Serum or plasma cholesterol in HDL measurement (mass/volume)Ordered By: Dr. Simpson on 09-30-2022 Cholesterol in HDL [Mass/Vol] 63 mg/dL >40 [facility] Comment on above: The drugs N-Acetylcy steine and Metamizole may falsely depress this assay. Reference Range HDL <40 mg/dL Low HDL Cholesterol HDL >or= 60 mg/dL High HDL Cholesterol Serum or plasma cholesterol in VLDL measurement (mass/volume)Ordered By: Dr. Simpson on 09-30-2022 Cholesterol in VLDL [Mass/Vol] 19 mg/dL 5-40 [facility] Serum or plasma creatinine m easurement (mass/volume)Ordered By: Dr. Simpson on 09-30-2022 Creatinine [Mass/Vol] 0.84 mg/dL 0.55-1.02 [facility] Comment on above: The validity of the calculated GFR & GFRAA in patients over 70 years has not been determined. Clinical correlation is essential. Serum or plasma low density lipoprotein (LDL) cholesterol measurement (mass/volume)Ordered By: Dr. Simpson on 09-30-2022 Cholesterol in LDL [Mass/Vol] 91 mg/dL 0-130 [facility] Serum or plasma urea nitroge n measurement (mass/volume)Ordered By: Dr. Simpson on 09-30-2022 Urea nitrogen [Mass/Vol] 25 mg/dL 7-18 [facility] Thin prep Papanicolaou smear with manual screeningOrdered By: Dr. Simpson on 09-30-2022 Thin prep Papanicolaou smear with manual screening 22 U/L 15-37 [facility] Thin prep Papanicolaou smear with manual screening 9 5-15 [facility] Thin prep Papanicolaou smear with manual screening 18.1 mg/L NO RANGE EST. [facility] Urine creatinine measurement (mass/volume)Ordered By: Dr. Simpson on 09-30-2022 Creatinine (U) [Mass/Vol] 95.20 mg/dL NO RANGE EST. [facility] Whole blood hemoglobin A1c/t otal hemoglobin ratio (mass fraction)Ordered By: Dr. Simpson on 09-30-2022 HbA1c (Bld) [Mass fraction] 6.6 % 3.8-5.6 [facility] Comment on above: Normal < 5.7 % Predi abetic 5.7 - 6.4 % Diabetic >or= 6.5 % Please note range changes. LABORATORYOrdered By: Joshua Sandhu on 08-14-2022 Blood Glucose Testing Reason Routine (08/14/22 7:58 AM) [facility] Work Phone: Glucose [Mass/Vol] 144 mg/dL Invalid Interpretation Code 70 - 110 mg/dL [facility] Work Phone: LABORATORYOrdered By: Krista Saavedra on 08-14-2022 Basophil, Absolute 0.0 103/mcL Invalid Interpretation Code 0.0 - 0.2 10^3/mcL AO Workflow SS Basophils/100 WBC (Bld) 0.2 % Invalid Interpretation Code 0.0 - 2.5 % AO Workflow SS Calcium [Mass/Vol] 8.8 mg/dL Invalid Interpretation Code 8.4 - 10.2 mg/dL AO ADM SS Chloride [Moles/Vol] 103 mmol/L Invalid Interpretation Code 98 - 107 mmol/L AO ADM SS CO2 [Moles/Vol] 29 mmol/L Invalid Interpretation Code 22 - 29 mmol/L AO ADM SS Creatinine [Mass/Vol] 0.75 mg/dL Invalid Interpretation Code 0.55 - 1.02 mg/dL AO ADM SS Electrolyte Balance 8.0 mEq/L Invalid Interpretation Code 4.0 - 15.0 mEq/L AO ADM SS Eosinophil, Absolute 0.0 103/mcL Invalid Interpretation Code 0.0 - 0.4 10^3/mcL AO Workflow SS Eosinophils/100 WBC (Bld) 0.1 % Invalid Interpretation Code 0.0 - 7.0 % AO Workflow SS Erythrocyte distribution width (RBC) [Ratio] 14.9 % Invalid Interpretation Code 11.5 - 14.5 % AO Workflow SS Glucose [Mass/Vol] 157 mg/dL Invalid Interpretation Code 70 - 105 mg/dL AO ADM SS Hematocrit (Bld) [Volume fraction] 37.6 % Invalid Interpretation Code 37.0 - 47.0 % AO Workflow SS Hemoglobin (Bld) [Mass/Vol] 12.5 G/dL Invalid Interpretation Code 12.0 - 16.0 G/dL AO Workflow SS Lymphocyte, Absolute 1.3 103/mcL Invalid Interpretation Code 0.8 - 3.9 10^3/mcL AO Workflow SS Lymphocytes/100 WBC (Bld) 10.4 % Invalid Interpretation Code 10.0 - 50.0 % AO Workflow SS MCH (RBC) [Entitic mass] 26.5 pg Invalid Interpretation Code 27.0 - 31.2 pg AO Workflow SS MCHC 33.2 G/dL Invalid Interpretation Code 33.0 - 37.0 G/dL AO Workflow SS MCV (RBC) [Entitic vol] 79.7 fL Invalid Interpretation Code 80.0 - 94.0 fL AO Workflow SS Monocyte, Absolute 0.9 103/mcL Invalid Interpretation Code 0.2 - 1.0 10^3/mcL AO Workflow SS Monocytes/100 WBC (Bld) 7.6 % Invalid Interpretation Code 1.7 - 13.0 % AO Workflow SS Neutrophil, Absolute 10.0 103/mcL Invalid Interpretation Code 2.9 - 6.2 10^3/mcL AO Workflow SS Neutrophils/100 WBC (Bld) 81.7 % Invalid Interpretation Code 37.0 - 80.0 % AO Workflow SS Platelet mean volume (Bld) [Entitic vol] 8.5 fL Invalid Interpretation Code 7.4 - 10.4 fL AO Workflow SS Platelets (Bld) [#/Vol] 201 103/mcL Invalid Interpretation Code 130 - 400 10^3/mcL AO Workflow SS Potassium [Moles/Vol] 4.1 mmol/L Invalid Interpretation Code 3.5 - 5.1 mmol/L AO ADM SS RBC (Bld) [#/Vol] 4.71 106/mcL Invalid Interpretation Code 4.20 - 5.40 10^6/mcL AO Workflow SS Sodium [Moles/Vol] 140 mmol/L Invalid Interpretation Code 136 - 145 mmol/L AO ADM SS Urea nitrogen [Mass/Vol] 12 mg/dL Invalid Interpretation Code 7 - 18 mg/dL AO ADM SS Urea nitrogen/Creatinine [Mass ratio] 16 ratio Invalid Interpretation Code 7 - 27 ratio AO ADM SS WBC (Bld) [#/Vol] 12.3 103/mcL Invalid Interpretation Code 4.6 - 10.8 10^3/mcL AO Workflow SS LABORATORYOrdered By: SYSTEM SYSTEM on 08-14-2022 GFR 98 ml/min/1.73sqm Invalid Interpretation Code AO Chemistry S GFR Non- 81 ml/min/1.73sqm Invalid Interpretation Code AO Chemistry S LABORATORYOrdered By: Romaine Flores on 08-13-2022 Blood Glucose Testing Reason Routine (08/13/22 10:20 PM) [facility] Work Phone: Glucose [Mass/Vol] 155 mg/dL Invalid Interpretation Code 70 - 110 mg/dL [facility] Work Phone: LABORATORYOrdered By: Shantanu Tapia on 08-13-2022 Blood Glucose Testing Reason Routine (08/13/22 4:10 PM) [facility] Work Phone: Glucose [Mass/Vol] 191 mg/dL Invalid Interpretation Code 70 - 110 mg/dL [facility] Work Phone: LABORATORYOrdered By: Yarelis Matthews on 08-13-2022 ABO/Rh Interp Positive Invalid Interpretation Code AO BB SS Antibody Screen Gel Negative ABSC (08/13/22 7:08 AM) Invalid Interpretation Code AO BB SS Basophil percentageOrdered B y: Dr. Hernandez on 08-07-2022 Bilirubin [Mass/Vol] 0.40 mg/dL 0.20-1.00 [facility] Comment on above: For patients on eltr ombopag therapy, use of Dimension [place] TBIL is not recommended. Protein [Mass/Vol] 7.0 g/dL 6.4-8.2 [facility] Direct bilirubinOrdered By: Dr. Hernandez on 08-07-2022 Bilirubin.direct [Mass/Vol] 0.12 mg/dL 0.00-0.30 [facility] Laboratory - Chemistry and C hemistry - challengeOrdered By: Dr. Hernandez on 08-07-2022 ALP [Catalytic activity/Vol] 92 U/L 45-117 [facility] ALT [Catalytic activity/Vol] 26 U/L 13-56 [facility] Globulin (S) [Mass/Vol] 3.1 g/dL 2.2-4.2 [facility] Serum or plasma albumin james urement (mass/volume)Ordered By: Dr. Hernandez on 08-07-2022 Albumin [Mass/Vol] 3.9 g/dL 3.2-5.0 [facility] Thin prep Papanicolaou smear with manual screeningOrdered By: Dr. Hernandez on 08-07-2022 Thin prep Papanicolaou smear with manual screening 19 U/L 15-37 [facility] LABORATORYOrdered By: Krista Saavedra on 07-29-2022 ABO/Rh Interp Positive Invalid Interpretation Code AO BB SS Albumin BCP dye [Mass/Vol] 4.1 G/dL Invalid Interpretation Code 3.5 - 5.0 G/dL AO ADM SS Antibody Screen Gel Negative ABSC (07/29/22 8:52 AM) Invalid Interpretation Code AO BB SS Calcium [Mass/Vol] 9.6 mg/dL Invalid Interpretation Code 8.4 - 10.2 mg/dL AO ADM SS Chloride [Moles/Vol] 102 mmol/L Invalid Interpretation Code 98 - 107 mmol/L AO ADM SS CO2 [Moles/Vol] 26 mmol/L Invalid Interpretation Code 22 - 29 mmol/L AO ADM SS Creatinine [Mass/Vol] 0.80 mg/dL Invalid Interpretation Code 0.55 - 1.02 mg/dL AO ADM SS Electrolyte Balance 10.0 mEq/L Invalid Interpretation Code 4.0 - 15.0 mEq/L AO ADM SS Glucose [Mass/Vol] 144 mg/dL Invalid Interpretation Code 70 - 105 mg/dL AO ADM SS HbA1c (Bld) [Mass fraction] 7.2 % Invalid Interpretation Code 4.3 - 6.4 % AO ADM SS Potassium [Moles/Vol] 4.3 mmol/L Invalid Interpretation Code 3.5 - 5.1 mmol/L AO ADM SS Sodium [Moles/Vol] 138 mmol/L Invalid Interpretation Code 136 - 145 mmol/L AO ADM SS Urea nitrogen [Mass/Vol] 16 mg/dL Invalid Interpretation Code 7 - 18 mg/dL AO ADM SS Urea nitrogen/Creatinine [Mass ratio] 20 ratio Invalid Interpretation Code 7 - 27 ratio AO ADM SS LABORATORYOrdered By: Kam Gomes on 07-29-2022 Basophil, Absolute 0.0 103/mcL Invalid Interpretation Code 0.0 - 0.2 10^3/mcL AO Workflow SS Basophils/100 WBC (Bld) 0.2 % Invalid Interpretation Code 0.0 - 2.5 % AO Workflow SS Eosinophil, Absolute 0.1 103/mcL Invalid Interpretation Code 0.0 - 0.4 10^3/mcL AO Workflow SS Eosinophils/100 WBC (Bld) 3.0 % Invalid Interpretation Code 0.0 - 7.0 % AO Workflow SS Erythrocyte distribution width (RBC) [Ratio] 14.9 % Invalid Interpretation Code 11.5 - 14.5 % AO Workflow SS Hematocrit (Bld) [Volume fraction] 43.5 % Invalid Interpretation Code 37.0 - 47.0 % AO Workflow SS Hemoglobin (Bld) [Mass/Vol] 14.6 G/dL Invalid Interpretation Code 12.0 - 16.0 G/dL AO Workflow SS Lymphocyte, Absolute 2.2 103/mcL Invalid Interpretation Code 0.8 - 3.9 10^3/mcL AO Workflow SS Lymphocytes/100 WBC (Bld) 38.4 % Invalid Interpretation Code 10.0 - 50.0 % AO Workflow SS MCH (RBC) [Entitic mass] 26.7 pg Invalid Interpretation Code 27.0 - 31.2 pg AO Workflow SS MCHC 33.7 G/dL Invalid Interpretation Code 33.0 - 37.0 G/dL AO Workflow SS MCV (RBC) [Entitic vol] 79.3 fL Invalid Interpretation Code 80.0 - 94.0 fL AO Workflow SS Monocyte, Absolute 0.4 103/mcL Invalid Interpretation Code 0.2 - 1.0 10^3/mcL AO Workflow SS Monocytes/100 WBC (Bld) 6.9 % Invalid Interpretation Code 1.7 - 13.0 % AO Workflow SS Neutrophil, Absolute 3.0 103/mcL Invalid Interpretation Code 2.9 - 6.2 10^3/mcL AO Workflow SS Neutrophils/100 WBC (Bld) 51.3 % Invalid Interpretation Code 37.0 - 80.0 % AO Workflow SS Platelet mean volume (Bld) [Entitic vol] 8.7 fL Invalid Interpretation Code 7.4 - 10.4 fL AO Workflow SS Platelets (Bld) [#/Vol] 242 103/mcL Invalid Interpretation Code 130 - 400 10^3/mcL AO Workflow SS RBC (Bld) [#/Vol] 5.49 106/mcL Invalid Interpretation Code 4.20 - 5.40 10^6/mcL AO Workflow SS WBC (Bld) [#/Vol] 5.8 103/mcL Invalid Interpretation Code 4.6 - 10.8 10^3/mcL AO Workflow SS LABORATORYOrdered By: SYSTEM SYSTEM on 07-29-2022 GFR 91 ml/min/1.73sqm Invalid Interpretation Code AO Chemistry S GFR Non- 75 ml/min/1.73sqm Invalid Interpretation Code AO Chemistry S Basophil percentageon 2021 Bilirubin [Mass/Vol] 0.30 mg/dL 0.20-1.00 [facility] Work Phone: Comment on above: For patients on eltr ombopag therapy, use of Dimension [place] TBIL is not recommended. Chloride [Moles/Vol] 103 mmol/L 98-107 [facility] [address] [facility] Work Phone: Cholesterol [Mass/Vol] 181 mg/dL <200 [facility] Work Phone: Comment on above: <200 mg/dL Desirable 200-240 mg/dL Borderline >240 mg/dL High Risk Glucose [Mass/Vol] 163 mg/dL 74-106 [facility] Work Phone: Comment on above: Fasting Glucose resu lt greater than or equal to 126 mg/dL suggests DIABETES MELLITUS per A.D.A. criteria. Potassium [Moles/Vol] 4.0 mmol/L 3.5-5.1 [facility] Work Phone: Protein [Mass/Vol] 7.4 g/dL 6.4-8.2 [facility] Work Phone: Sodium [Moles/Vol] 138 mmol/L 136-145 [facility] Work Phone: Triglyceride [Mass/Vol] 150 mg/dL <199 [facility] Work Phone: Comment on above: The drugs N-Acetylcy steine and Metamizole may falsely depress this assay.Serum Triglycerides Reference Interval Normal <150 mg/dL Borderline high 150 - 199 mg/dL High 200 - 499 mg/dL Very High > or = 500 mg/dL Laboratory - Chemistry and C hemistry - challengeon 06-03-2022 ALP [Catalytic activity/Vol] 129 U/L 45-117 [facility] Work Phone: ALT [Catalytic activity/Vol] 23 U/L 13-56 [facility] Work Phone: CO2 [Moles/Vol] 27.0 mmol/L 21.0-32.0 [facility] Work Phone: Globulin (S) [Mass/Vol] 3.7 g/dL 2.2-4.2 [facility] Work Phone: Urea nitrogen/Creatinine [Mass ratio] 18.3 mg/mg 10-20 [facility] Work Phone: No Panel Informationon 06-03 Estimated GFR (MDRD) Amer 87 mL/min >60 [facility] Work Phone: Comment on above: GFR Calc Estimated GFR (MDRD) Non-Af Amer 72 mL/min >60 [facility] Work Phone: Comment on above: Non- GFR Calc Thyroid Stimulating Hormone (TSH) 1.72 uIU/mL 0.358-3.74 [facility] Work Phone: Vitamin D 25-Hydroxy 34.8 ng/mL [facility] Work Phone: Comment on above: Vitamin D 25(OH) Sta tus Range Deficiency <20 ng/mL (50nmol/L) Insufficiency 20 - 30 ng/mL (50 - 75 nmol/L) Sufficiency 30 - 100 ng/mL (75 - 250 nmol/L) Toxicity >100 ng/mL (>250 nmol/L) Serum or plasma albumin james urement (mass/volume)on 06-03-2022 Albumin [Mass/Vol] 3.7 g/dL 3.2-5.0 [facility] Work Phone: Serum or plasma albumin/glob ulin mass ratioon 06-03-2022 Albumin/Globulin [Mass ratio] 1.0 {ratio} 0.9-2.4 [facility] Work Phone: Serum or plasma calcium james urement (mass/volume)on 06-03-2022 Calcium [Mass/Vol] 9.0 mg/dL 8.5-10.1 [facility] Work Phone: Serum or plasma cholesterol in HDL measurement (mass/volume)on 06-03-2022 Cholesterol in HDL [Mass/Vol] 53 mg/dL >40 [facility] Work Phone: Comment on above: The drugs N-Acetylcy steine and Metamizole may falsely depress this assay. Reference Range HDL <40 mg/dL Low HDL Cholesterol HDL >or= 60 mg/dL High HDL Cholesterol Serum or plasma cholesterol in VLDL measurement (mass/volume)on 06-03-2022 Cholesterol in VLDL [Mass/Vol] 30 mg/dL 5-40 [facility] Work Phone: Serum or plasma creatinine m easurement (mass/volume)on 06-03-2022 Creatinine [Mass/Vol] 0.87 mg/dL 0.55-1.02 [facility] Work Phone: Comment on above: The validity of the calculated GFR & GFRAA in patients over 70 years has not been determined. Clinical correlation is essential. Serum or plasma low density lipoprotein (LDL) cholesterol measurement (mass/volume)on 06-03-2022 Cholesterol in LDL [Mass/Vol] 98 mg/dL 0-130 [facility] Work Phone: Serum or plasma urea nitroge n measurement (mass/volume)on 06-03-2022 Urea nitrogen [Mass/Vol] 16 mg/dL 7-18 [facility] Work Phone: Thin prep Papanicolaou smear with manual screeningon 06-03-2022 Thin prep Papanicolaou smear with manual screening 20 U/L 15-37 [facility] Work Phone: Thin prep Papanicolaou smear with manual screening 8 5-15 [facility] Work Phone: Whole blood hemoglobin A1c/t otal hemoglobin ratio (mass fraction)on 06-03-2022 HbA1c (Bld) [Mass fraction] 7.0 % 3.8-5.6 [facility] Work Phone: Comment on above: Normal < 5.7 % Predi abetic 5.7 - 6.4 % Diabetic >or= 6.5 % Please note range changes. CR Foot Complete 3+ Views [place] 05-31-2022 CR Foot Complete 3+ Views Left Patient Name: PRAVIN MELO Diagnostic Radiology ACCESSION EXAM DATE/TIME PROCEDURE ORDERING PROVIDER [id number] 05/31/2022 13:20 EDT CR Foot Complete 3+ [id number] -RCOAEL POLO Left CPT code 71929 Reason For Exam (CR Foot Complete 3+ Views Left) PAIN Report Left foot TECHNIQUE: 3 views CLINICAL INDICATION: Pain COMPARISON: April 19, 2022. FINDINGS: AP, lateral, and oblique views of the left foot are provided. Stable postoperative changes/ongoing osseous fusion of the talonavicular, calcaneocuboid, and talocalcaneal joints. No evidence of complete fusion or hardware complication. Stable degenerative changes throughout the mid and forefoot. Large plantar and dorsal calcaneal enthesophytes. IMPRESSION: Stable postoperative changes/ongoing osseous fusion of the talonavicular, calcaneocuboid, and talocalcaneal joints. No evidence of complete fusion or hardware complication. Report Dictated on Final Dictating Physician: MD DANIELSON JASON Signed Date and Time: 06/02/2022 1:34 pm Signed by: MD DANIELSON JASON Transcribed Date and Time: 06/02/2022 1:35 Normal [facility] Absolute lymphocyte counton 05-10-2022 Lymphocytes Auto (Unsp spec) [#/Vol] 1.67 10*3/uL 0.83-4.51 [facility] Work Phone: Basophil percentageon 2021 Basophils/100 WBC (Bld) 0.9 % 0-1 [facility] Work Phone: Bilirubin [Mass/Vol] 0.40 mg/dL 0.20-1.00 [facility] Work Phone: Comment on above: For patients on eltr ombopag therapy, use of Dimension [place] TBIL is not recommended. Chloride [Moles/Vol] 105 mmol/L 98-107 [facility] Work Phone: Eosinophils/100 WBC (Bld) 2.7 % 0-5 [facility] Work Phone: Glucose [Mass/Vol] 131 mg/dL 74-106 [facility] Work Phone: Comment on above: Fasting Glucose resu lt greater than or equal to 126 mg/dL suggests DIABETES MELLITUS per A.D.A. criteria. Neutrophils (Bld) [#/Vol] 4.5 10*3/uL 2.0-7.7 [facility] Work Phone: Neutrophils/100 WBC (Bld) 64.2 % 47-70 [facility] Work Phone: Potassium [Moles/Vol] 4.3 mmol/L 3.5-5.1 [facility] Work Phone: Protein [Mass/Vol] 7.7 g/dL 6.4-8.2 [facility] Work Phone: Sodium [Moles/Vol] 138 mmol/L 136-145 [facility] Work Phone: WBC (Bld) [#/Vol] 7.0 10*3/uL 4.4-11.0 [facility] Work Phone: Blood erythrocytes count (nu mber/volume)on 05-10-2022 RBC (Bld) [#/Vol] 5.23 10*6/uL 4.2-5.4 [facility] Work Phone: Blood hemoglobin measurement (mass/volume)on 05-10-2022 Hemoglobin (Bld) [Mass/Vol] 14.3 g/dL 12.0-15.0 [facility] Work Phone: Blood lymphocytes/100 leukoc yteson 05-10-2022 Lymphocytes/100 WBC (Bld) 23.9 % 19-41 [facility] Work Phone: Blood monocytes/100 leukocyt eson 05-10-2022 Monocytes/100 WBC (Bld) 7.7 % 0-10 [facility] Work Phone: Blood platelet mean volumeon 05-10-2022 Platelet mean volume (Bld) [Entitic vol] 10.5 fL 6.2-12.0 [facility] Work Phone: Determination of erythrocyte mean corpuscular volume (MCV)on 05-10-2022 MCV (RBC) [Entitic vol] 84.1 fL 81-99 [facility] Work Phone: Hematocrit Auto (Bld) [Volum e fraction]on 05-10-2022 Hematocrit (Bld) [Volume fraction] 44.0 % 37-47 [facility] Work Phone: Laboratory - Chemistry and C hemistry - challengeon 05-10-2022 ALP [Catalytic activity/Vol] 92 U/L 45-117 [facility] Work Phone: ALT [Catalytic activity/Vol] 26 U/L 13-56 [facility] Work Phone: CO2 [Moles/Vol] 26.0 mmol/L 21.0-32.0 [facility] Work Phone: Globulin (S) [Mass/Vol] 3.8 g/dL 2.2-4.2 [facility] Work Phone: Urea nitrogen/Creatinine [Mass ratio] 25.5 mg/mg 10-20 [facility] Work Phone: Laboratory - Hematology and Cell countson 05-10-2022 Erythrocyte distribution width (RBC) [Entitic vol] 41.5 fL 35.1-43.9 [facility] Work Phone: [phone] Erythrocyte distribution width (RBC) [Ratio] 13.5 % 11.6-14.6 [facility] Work Phone: Immature granulocytes/100 WBC (Bld) 0.600 % 0.0-0.9 [facility] Work Phone: Comment on above: IG% - Immature Granu locytes (promyelocytes, myelocytes and metamyelocytes) > 1% indicates that a LEFT SHIFT is Present. MCH (RBC) [Entitic mass] 27.3 pg 27.0-32.0 [facility] Work Phone: Nucleated RBC/100 WBC (Bld) [Ratio] 0 % 0-5 [facility] Work Phone: MCHC Auto (RBC) [Mass/Vol]on 05-10-2022 MCHC (RBC) [Mass/Vol] 32.5 g/dL 32-36 [facility] Work Phone: No Panel Informationon 05-10 Estimated GFR (MDRD) Amer 88 mL/min >60 [facility] Work Phone: Comment on above: GFR Calc Estimated GFR (MDRD) Non-Af Amer 73 mL/min >60 [facility] Work Phone: Comment on above: Non- GFR Calc Platelets bldon 05-10-2022 Platelets (Bld) [#/Vol] 253 10*3/uL 150-450 [facility] Work Phone: Serum or plasma albumin james urement (mass/volume)on 05-10-2022 Albumin [Mass/Vol] 3.9 g/dL 3.2-5.0 [facility] Work Phone: Serum or plasma albumin/glob ulin mass ratioon 05-10-2022 Albumin/Globulin [Mass ratio] 1.0 {ratio} 0.9-2.4 [facility] Work Phone: Serum or plasma calcium james urement (mass/volume)on 05-10-2022 Calcium [Mass/Vol] 9.2 mg/dL 8.5-10.1 [facility] Work Phone: Serum or plasma creatinine m easurement (mass/volume)on 05-10-2022 Creatinine [Mass/Vol] 0.86 mg/dL 0.55-1.02 [facility] Work Phone: Comment on above: The validity of the calculated GFR & GFRAA in patients over 70 years has not been determined. Clinical correlation is essential. Serum or plasma urea nitroge n measurement (mass/volume)on 05-10-2022 Urea nitrogen [Mass/Vol] 22 mg/dL 7-18 [facility] Work Phone: Thin prep Papanicolaou smear with manual screeningon 05-10-2022 Thin prep Papanicolaou smear with manual screening 22 U/L 15-37 [facility] Work Phone: Thin prep Papanicolaou smear with manual screening 7 5-15 [facility] Work Phone: CR Foot Complete 3+ Views [place] 04-19-2022 CR Foot Complete 3+ Views Left [facility]: [id number] ACCESSION EXAM DATE/TIME PROCEDURE ORDERING PROVIDER [id number] 04/19/2022 13:23 EDT CR Foot Complete 3+ [id number] -MELANI, ROCAEL Views Left CPT code 90530 Reason For Exam (CR Foot Complete 3+ Views Left) PAIN Report LEFT FOOT THREE VIEWS CLINICAL INDICATION: PAIN TECHNIQUE: Three views of the left foot. COMPARISON: 02/08/2022 FINDINGS: Hindfoot fusion since the previous study. No hardware complication seen. No acute fracture or dislocation. Moderate sized plantar spur. Normal plantar arch. IMPRESSION: 1. Hindfoot fusion without evidence of complication. Report Dictated on Workstation: LIZ Final Dictating Physician: MD RENTERIA JOHN R Signed Date and Time: 04/21/2022 7:24 pm Signed by: MD RENTERIA JOHN R Transcribed Date and Time: 04/21/2022 7:25 Normal [facility] Glucose,Bedsideon 03-07-2022 Glucose [Mass/Vol] 200 mg/dL High 70-100 [facility] Comment on above: Result Comment: Test performed by glucose meter. Results may be 10%-15% lower than serum/plasma values. (CLIA ID [id number]) Performed By: #### B GLU #### [facility] [address] [place] [address] Glucose [Mass/Vol] 132 mg/dL High 70-100 [facility] Comment on above: Result Comment: Test performed by glucose meter. Results may be 10%-15% lower than serum/plasma values. (CLIA ID [id number]) Performed By: #### B GLU #### [facility] [address] [place] [address] POCT Glucoseon 03-07-2022 Glucose [Mass/Vol] 200 mg/dL High 70 - 100 mg/dL [facility] Comment on above: Test performed by gl ucose meter. Results may be 10%-15% lower than serum/plasma values. (CLIA ID [id number]) Interpretation and review of laboratory results Abnormal [facility] Test Performed by [facility], [address] , [address] LAB [facility] Test Performed by [facility], [address] , [address] LAB POCT GlucoseOrdered By: Bill Pickard on 03-07-2022 Glucose [Mass/Vol] 132 mg/dL High 70 - 100 mg/dL [facility] Work Phone: Comment on above: Test performed by gl ucose meter. Results may be 10%-15% lower than serum/plasma values. (CLIA ID [id number]) Interpretation and review of laboratory results Abnormal [facility] Work Phone: [facility] Work Phone: EKG 12 Leadon 02-14-2022 [facility] Test Date: 2022-02-14 Pat Name: PRAVIN DUMONTLER [id number]: Gender: F Environmental Designer: RADHA : 1970 Requested By: SIMONE AMIN Order Number: [id number] Reading : Abelino Lyons Measurements Intervals [place] Rate: 74 P: 60 CA: 160 QRS: -30 QRSD: 100 T: 24 QT: 404 QTc: 449 Interpretive Statements SINUS RHYTHM LEFT AXIS DEVIATION LATE PRECORDIAL R/S TRANSITION No previous ECG available for comparison Electronically Signed On 02-14-2022 12:10:21 EDT by Abelino RODRIGUEZ CARDIOLOGY Abelino Lyons MD - 02/14/2022 [facility] Test Date: 2022-02-14 Pat Name: PRAVIN MELO Department: [id number] Room: Gender: F Environmental Designer: RADHA : 1970 Requested By: SIMONE AMIN Order Number: [id number] Reading MD: Abelino Lyons Measurements Intervals [place] Rate: 74 P: 60 CA: 160 QRS: -30 QRSD: 100 T: 24 QT: 404 QTc: 449 Interpretive Statements SINUS RHYTHM LEFT AXIS DEVIATION LATE PRECORDIAL R/S TRANSITION No previous ECG available for comparison Electronically Signed On 02-14-2022 12:10:21 EDT by Abelino Lyons [facility] Work Phone: EKG 12 LeadOrdered By: Abelino Lyons on 02-14-2022 [facility] Work Phone: CR Foot Complete 3+ Views [place] 02-08-2022 CR Foot Complete 3+ Views Left Patient Name: PRAVIN MELO Diagnostic Radiology ACCESSION EXAM DATE/TIME PROCEDURE ORDERING PROVIDER [id number] 02/08/2022 12:51 EDT CR Foot Complete 3+ SIMONE AMIN Views Left CPT code 11373 Reason For Exam (CR Foot Complete 3+ Views Left) left foot pain Report Left foot TECHNIQUE: 3 views CLINICAL INDICATION: Pain COMPARISON: None. FINDINGS: AP, lateral, and oblique views of the left foot are provided. Pes planus deformity. Advanced midfoot productive osteoarthrosis. Large plantar and dorsal calcaneal enthesophytes. Mild first MTP and interphalangeal osteoarthrosis. No cortical or trabecular irregularity to suggest fracture. The remaining bones are in normal anatomic alignment. No evidence for radiopaque foreign body. The visualized soft tissues are within normal limits. IMPRESSION: 1. Pes planus deformity with advanced midfoot productive osteoarthrosis. 2. Large plantar and dorsal calcaneal enthesophytes. 3. Mild first MTP and interphalangeal osteoarthrosis. Report Dictated on Final Dictating Physician: MD DANIELSON JASON Signed Date and Time: 02/11/2022 10:21 am Signed by: MD DANIELSON JASON Transcribed Date and Time: 02/11/2022 10:22 Normal [facility] Absolute lymphocyte counton 01-31-2022 Lymphocytes Auto (Unsp spec) [#/Vol] 1.87 10*3/uL 0.83-4.51 [facility] Work Phone: Basophil percentageon 2021 Basophils/100 WBC (Bld) 1.2 % 0-1 [facility] Work Phone: Bilirubin [Mass/Vol] 0.30 mg/dL 0.20-1.00 [facility] Work Phone: Comment on above: For patients on eltr ombopag therapy, use of Dimension [place] TBIL is not recommended. Chloride [Moles/Vol] 103 mmol/L 98-107 [facility] Work Phone: Eosinophils/100 WBC (Bld) 2.0 % 0-5 [facility] Work Phone: Glucose [Mass/Vol] 128 mg/dL 74-106 [facility] Work Phone: Comment on above: Fasting Glucose resu lt greater than or equal to 126 mg/dL suggests DIABETES MELLITUS per A.D.A. criteria. Neutrophils (Bld) [#/Vol] 4.2 10*3/uL 2.0-7.7 [facility] Work Phone: Neutrophils/100 WBC (Bld) 60.8 % 47-70 [facility] Work Phone: [phone] Potassium [Moles/Vol] 3.8 mmol/L 3.5-5.1 [facility] Work Phone: Protein [Mass/Vol] 7.2 g/dL 6.4-8.2 [facility] Work Phone: Sodium [Moles/Vol] 137 mmol/L 136-145 [facility] Work Phone: [phone] WBC (Bld) [#/Vol] 6.9 10*3/uL 4.4-11.0 [facility] Work Phone: [phone] Blood erythrocytes count (nu mber/volume)on 01-31-2022 RBC (Bld) [#/Vol] 5.03 10*6/uL 4.2-5.4 [facility] Work Phone: Blood hemoglobin measurement (mass/volume)on 01-31-2022 Hemoglobin (Bld) [Mass/Vol] 13.5 g/dL 12.0-15.0 [facility] Work Phone: Blood lymphocytes/100 leukoc yteson 01-31-2022 Lymphocytes/100 WBC (Bld) 27.1 % 19-41 [facility] Work Phone: Blood monocytes/100 leukocyt eson 01-31-2022 Monocytes/100 WBC (Bld) 8.3 % 0-10 [facility] Work Phone: Blood platelet mean volumeon 01-31-2022 Platelet mean volume (Bld) [Entitic vol] 10.4 fL 6.2-12.0 [facility] Work Phone: Determination of erythrocyte mean corpuscular volume (MCV)on 01-31-2022 MCV (RBC) [Entitic vol] 84.1 fL 81-99 [facility] Work Phone: Hematocrit Auto (Bld) [Volum e fraction]on 01-31-2022 Hematocrit (Bld) [Volume fraction] 42.3 % 37-47 [facility] Work Phone: Laboratory - Chemistry and C hemistry - challengeon 01-31-2022 ALP [Catalytic activity/Vol] 103 U/L 45-117 [facility] Work Phone: ALT [Catalytic activity/Vol] 28 U/L 13-56 [facility] Work Phone: CO2 [Moles/Vol] 27.0 mmol/L 21.0-32.0 [facility] Work Phone: Globulin (S) [Mass/Vol] 3.4 g/dL 2.2-4.2 [facility] Work Phone: Urea nitrogen/Creatinine [Mass ratio] 27.9 mg/mg 10-20 [facility] Work Phone: Laboratory - Hematology and Cell countson 01-31-2022 Erythrocyte distribution width (RBC) [Entitic vol] 40.8 fL 35.1-43.9 [facility] Work Phone: Erythrocyte distribution width (RBC) [Ratio] 13.3 % 11.6-14.6 [facility] Work Phone: Immature granulocytes/100 WBC (Bld) 0.600 % 0.0-0.9 [facility] Work Phone: Comment on above: IG% - Immature Granu locytes (promyelocytes, myelocytes and metamyelocytes) > 1% indicates that a LEFT SHIFT is Present. MCH (RBC) [Entitic mass] 26.8 pg 27.0-32.0 [facility] Work Phone: Nucleated RBC/100 WBC (Bld) [Ratio] 0 % 0-5 [facility] Work Phone: MCHC Auto (RBC) [Mass/Vol]on 01-31-2022 MCHC (RBC) [Mass/Vol] 31.9 g/dL 32-36 [facility] Work Phone: No Panel Informationon 01-31 Estimated GFR (MDRD) Amer 88 mL/min >60 [facility] Work Phone: Comment on above: GFR Calc Estimated GFR (MDRD) Non-Af Amer 73 mL/min >60 [facility] Work Phone: Comment on above: Non- GFR Calc Thyroid Stimulating Hormone (TSH) 0.73 uIU/mL 0.358-3.74 [facility] Work Phone: Vitamin D 25-Hydroxy 29.9 ng/mL [facility] Work Phone: Comment on above: Vitamin D 25(OH) Sta tus Range Deficiency <20 ng/mL (50nmol/L) Insufficiency 20 - 30 ng/mL (50 - 75 nmol/L) Sufficiency 30 - 100 ng/mL (75 - 250 nmol/L) Toxicity >100 ng/mL (>250 nmol/L) Platelets bldon 01-31-2022 Platelets (Bld) [#/Vol] 248 10*3/uL 150-450 [facility] Work Phone: Serum or plasma albumin james urement (mass/volume)on 01-31-2022 Albumin [Mass/Vol] 3.8 g/dL 3.2-5.0 [facility] Work Phone: Serum or plasma albumin/glob ulin mass ratioon 01-31-2022 Albumin/Globulin [Mass ratio] 1.1 {ratio} 0.9-2.4 [facility] Work Phone: Serum or plasma calcium james urement (mass/volume)on 01-31-2022 Calcium [Mass/Vol] 8.6 mg/dL 8.5-10.1 [facility] Work Phone: Serum or plasma creatinine m easurement (mass/volume)on 01-31-2022 Creatinine [Mass/Vol] 0.86 mg/dL 0.55-1.02 [facility] Work Phone: Comment on above: The validity of the calculated GFR & GFRAA in patients over 70 years has not been determined. Clinical correlation is essential. Serum or plasma urea nitroge n measurement (mass/volume)on 01-31-2022 Urea nitrogen [Mass/Vol] 24 mg/dL 7-18 [facility] Work Phone: Thin prep Papanicolaou smear with manual screeningon 01-31-2022 Thin prep Papanicolaou smear with manual screening 24 U/L 15-37 [facility] Work Phone: Thin prep Papanicolaou smear with manual screening 7 01-20 [facility] Work Phone: Whole blood hemoglobin A1c/t otal hemoglobin ratio (mass fraction)on 01-31-2022 HbA1c (Bld) [Mass fraction] 6.8 % 3.8-5.6 [facility] Work Phone: Comment on above: Normal < 5.7 % Predi abetic 5.7 - 6.4 % Diabetic >or= 6.5 % Please note range changes. LABORATORYOrdered By: Rory Lawrence on 11-20-2021 Albumin BCP dye [Mass/Vol] 4.4 G/dL Invalid Interpretation Code 3.5 - 5.0 G/dL AO ADM SS Albumin/Globulin [Mass ratio] 1.3 {ratio} Invalid Interpretation Code 1.1 - 2.5 ratio AO ADM SS ALP [Catalytic activity/Vol] 114 U/L Invalid Interpretation Code 40 - 135 U/L AO ADM SS ALT With P-5'-P [Catalytic activity/Vol] 32 U/L Invalid Interpretation Code 14 - 59 U/L AO ADM SS AST With P-5'-P [Catalytic activity/Vol] 23 U/L Invalid Interpretation Code 10 - 40 U/L AO ADM SS Bilirubin [Mass/Vol] 0.3 mg/dL Invalid Interpretation Code 0.2 - 1.0 mg/dL AO ADM SS Calcium [Mass/Vol] 9.5 mg/dL Invalid Interpretation Code 8.4 - 10.2 mg/dL AO ADM SS Chloride [Moles/Vol] 101 mmol/L Invalid Interpretation Code 98 - 107 mmol/L AO ADM SS CO2 [Moles/Vol] 26 mmol/L Invalid Interpretation Code 22 - 29 mmol/L AO ADM SS Creatinine [Mass/Vol] 0.76 mg/dL Invalid Interpretation Code 0.55 - 1.02 mg/dL AO ADM SS Electrolyte Balance 11.0 mEq/L Invalid Interpretation Code 4.0 - 15.0 mEq/L AO ADM SS Globulin 3.3 G/dL Invalid Interpretation Code AO ADM SS Glucose [Mass/Vol] 128 mg/dL Invalid Interpretation Code 70 - 105 mg/dL AO ADM SS Potassium [Moles/Vol] 4.4 mmol/L Invalid Interpretation Code 3.5 - 5.1 mmol/L AO ADM SS Protein [Mass/Vol] 7.7 G/dL Invalid Interpretation Code 6.4 - 8.2 G/dL AO ADM SS Sodium [Moles/Vol] 138 mmol/L Invalid Interpretation Code 136 - 145 mmol/L AO ADM SS Urea nitrogen [Mass/Vol] 17 mg/dL Invalid Interpretation Code 7 - 18 mg/dL AO ADM SS Urea nitrogen/Creatinine [Mass ratio] 22 ratio Invalid Interpretation Code 7 - 27 ratio AO ADM SS LABORATORYOrdered By: Kam Gomes on 11-20-2021 Basophil, Absolute 0.10 103/mcL Invalid Interpretation Code 0.00 - 0.19 10^3/mcL AO Auto Heme SS Basophils/100 WBC (Bld) 0.9 % Invalid Interpretation Code 0.0 - 2.5 % AO Auto Heme SS Eosinophil, Absolute 0.20 103/mcL Invalid Interpretation Code 0.00 - 0.40 10^3/mcL AO Auto Heme SS Eosinophils/100 WBC (Bld) 1.9 % Invalid Interpretation Code 0.0 - 7.0 % AO Auto Heme SS Erythrocyte distribution width (RBC) [Ratio] 14.3 % Invalid Interpretation Code 11.5 - 14.5 % AO Auto Heme SS Hematocrit (Bld) [Volume fraction] 41.9 % Invalid Interpretation Code 37.0 - 47.0 % AO Auto Heme SS Hemoglobin (Bld) [Mass/Vol] 14.1 G/dL Invalid Interpretation Code 12.0 - 16.0 G/dL AO Auto Heme SS Lymphocyte, Absolute 2.50 103/mcL Invalid Interpretation Code 0.77 - 3.85 10^3/mcL AO Auto Heme SS Lymphocytes/100 WBC (Bld) 28.6 % Invalid Interpretation Code 10.0 - 50.0 % AO Auto Heme SS MCH (RBC) [Entitic mass] 27.8 pg Invalid Interpretation Code 27.0 - 31.2 pg AO Auto Heme SS MCHC (RBC) [Mass/Vol] 33.8 G/dL Invalid Interpretation Code 33.0 - 37.0 G/dL AO Auto Heme SS MCV (RBC) [Entitic vol] 82.2 fL Invalid Interpretation Code 80.0 - 94.0 fL AO Auto Heme SS Monocyte, Absolute 0.70 103/mcL Invalid Interpretation Code 0.15 - 1.00 10^3/mcL AO Auto Heme SS Monocytes/100 WBC (Bld) 8.2 % Invalid Interpretation Code 1.7 - 13.0 % AO Auto Heme SS Neutrophil, Absolute 5.30 103/mcL Invalid Interpretation Code 2.85 - 6.16 10^3/mcL AO Auto Heme SS Neutrophils/100 WBC (Bld) 60.4 % Invalid Interpretation Code 37.0 - 80.0 % AO Auto Heme SS Platelet mean volume (Bld) [Entitic vol] 9.1 fL Invalid Interpretation Code 7.4 - 10.4 fL AO Auto Heme SS Platelets (Bld) [#/Vol] 287 103/mcL Invalid Interpretation Code 130 - 400 10^3/mcL AO Auto Heme SS RBC (Bld) [#/Vol] 5.09 106/mcL Invalid Interpretation Code 4.20 - 5.40 10^6/mcL AO Auto Heme SS WBC (Bld) [#/Vol] 8.80 103/mcL Invalid Interpretation Code 4.60 - 10.80 10^3/mcL AO Auto Heme SS LABORATORYOrdered By: SYSTEM SYSTEM on 11-20-2021 GFR 96 ml/min/1.73sqm Invalid Interpretation Code AO Chemistry S GFR Non- 80 ml/min/1.73sqm Invalid Interpretation Code AO Chemistry S Basophil percentageon 2021 Bilirubin [Mass/Vol] 0.50 mg/dL 0.20-1.00 [facility] Work Phone: Comment on above: For patients on eltr ombopag therapy, use of Dimension [place] TBIL is not recommended. Chloride [Moles/Vol] 103 mmol/L 98-107 [facility] Work Phone: Cholesterol [Mass/Vol] 193 mg/dL <200 [facility] Work Phone: Comment on above: <200 mg/dL Desirable 200-240 mg/dL Borderline >240 mg/dL High Risk Glucose [Mass/Vol] 130 mg/dL 74-106 [facility] Work Phone: Comment on above: Fasting Glucose resu lt greater than or equal to 126 mg/dL suggests DIABETES MELLITUS per A.D.A. criteria. Potassium [Moles/Vol] 3.9 mmol/L 3.5-5.1 [facility] Work Phone: Protein [Mass/Vol] 7.6 g/dL 6.4-8.2 [facility] Work Phone: Sodium [Moles/Vol] 137 mmol/L 136-145 [facility] Work Phone: Triglyceride [Mass/Vol] 98 mg/dL [facility] Work Phone: Comment on above: The drugs N-Acetylcy steine and Metamizole may falsely depress this assay.Serum Triglycerides Reference Interval Normal <150 mg/dL Borderline high 150 - 199 mg/dL High 200 - 499 mg/dL Very High > or = 500 mg/dL Laboratory - Chemistry and C hemistry - challengeon 10-19-2021 ALP [Catalytic activity/Vol] 104 U/L 45-117 [facility] Work Phone: ALT [Catalytic activity/Vol] 28 U/L 13-56 [facility] Work Phone: CO2 [Moles/Vol] 30.0 mmol/L 21.0-32.0 [facility] Work Phone: Globulin (S) [Mass/Vol] 3.8 g/dL 2.2-4.2 [facility] Work Phone: Urea nitrogen/Creatinine [Mass ratio] 14.8 mg/mg 10-20 [facility] Work Phone: No Panel Informationon 10-19 Estimated GFR (MDRD) Amer 105 mL/min >60 [facility] Work Phone: Comment on above: GFR Calc Estimated GFR (MDRD) Non-Af Amer 87 mL/min >60 [facility] Work Phone: Comment on above: Non- GFR Calc Urine Microalbumin/Creatinin e Ratio 24.2 mg/g CRE <30 [facility] Work Phone: Serum or plasma albumin james urement (mass/volume)on 10-19-2021 Albumin [Mass/Vol] 3.8 g/dL 3.2-5.0 [facility] Work Phone: Serum or plasma albumin/glob ulin mass ratioon 10-19-2021 Albumin/Globulin [Mass ratio] 1.0 {ratio} 0.9-2.4 [facility] Work Phone: Serum or plasma calcium james urement (mass/volume)on 10-19-2021 Calcium [Mass/Vol] 9.0 mg/dL 8.5-10.1 [facility] Work Phone: Serum or plasma cholesterol in HDL measurement (mass/volume)on 10-19-2021 Cholesterol in HDL [Mass/Vol] 55 mg/dL [facility] Work Phone: Comment on above: The drugs N-Acetylcy steine and Metamizole may falsely depress this assay. Reference Range HDL <40 mg/dL Low HDL Cholesterol HDL >or= 60 mg/dL High HDL Cholesterol Serum or plasma cholesterol in VLDL measurement (mass/volume)on 10-19-2021 Cholesterol in VLDL [Mass/Vol] 20 mg/dL 5-40 [facility] Work Phone: Serum or plasma creatinine m easurement (mass/volume)on 10-19-2021 Creatinine [Mass/Vol] 0.74 mg/dL 0.55-1.02 [facility] Work Phone: Comment on above: The validity of the calculated GFR & GFRAA in patients over 70 years has not been determined. Clinical correlation is essential. Serum or plasma low density lipoprotein (LDL) cholesterol measurement (mass/volume)on 10-19-2021 Cholesterol in LDL [Mass/Vol] 118 mg/dL 0-130 [facility] Work Phone: Serum or plasma urea nitroge n measurement (mass/volume)on 10-19-2021 Urea nitrogen [Mass/Vol] 11 mg/dL 7-18 [facility] Work Phone: Thin prep Papanicolaou smear with manual screeningon 10-19-2021 Thin prep Papanicolaou smear with manual screening 22 U/L 15-37 [facility] Work Phone: Thin prep Papanicolaou smear with manual screening 4 5-15 [facility] Work Phone: Thin prep Papanicolaou smear with manual screening 32.9 mg/L NO RANGE EST. [facility] Work Phone: Urine creatinine measurement (mass/volume)on 10-19-2021 Creatinine (U) [Mass/Vol] 136.00 mg/dL NO RANGE EST. [facility] Work Phone: Whole blood hemoglobin A1c/t otal hemoglobin ratio (mass fraction)on 10-19-2021 HbA1c (Bld) [Mass fraction] 8.1 % 3.8-5.6 [facility] Work Phone: Comment on above: Normal < 5.7 % Predi abetic 5.7 - 6.4 % Diabetic >or= 6.5 % Please note range changes. No Panel Informationon 10-04 Culture Urine <10,000 cfu/ml. No Significant growth. Sensitivity not indicated. [facility] Work Phone: LABORATORYOrdered By: Kam Gomes on 07-09-2021 Albumin BCP dye [Mass/Vol] 4.0 G/dL Invalid Interpretation Code 3.5 - 5.0 G/dL AO ADM SS Albumin/Globulin [Mass ratio] 1.2 {ratio} Invalid Interpretation Code 1.1 - 2.5 ratio AO ADM SS ALP [Catalytic activity/Vol] 114 U/L Invalid Interpretation Code 40 - 135 U/L AO ADM SS ALT With P-5'-P [Catalytic activity/Vol] 39 U/L Invalid Interpretation Code 14 - 59 U/L AO ADM SS AST With P-5'-P [Catalytic activity/Vol] 34 U/L Invalid Interpretation Code 10 - 40 U/L AO ADM SS Bilirubin [Mass/Vol] 0.4 mg/dL Invalid Interpretation Code 0.2 - 1.0 mg/dL AO ADM SS Calcium [Mass/Vol] 8.8 mg/dL Invalid Interpretation Code 8.4 - 10.2 mg/dL AO ADM SS Chloride [Moles/Vol] 100 mmol/L Invalid Interpretation Code 98 - 107 mmol/L AO ADM SS CO2 [Moles/Vol] 27 mmol/L Invalid Interpretation Code 22 - 29 mmol/L AO ADM SS Creatinine [Mass/Vol] 0.80 mg/dL Invalid Interpretation Code 0.55 - 1.02 mg/dL AO ADM SS Electrolyte Balance 12.0 mEq/L Invalid Interpretation Code AO ADM SS Globulin 3.2 G/dL Invalid Interpretation Code AO ADM SS Glucose [Mass/Vol] 169 mg/dL Invalid Interpretation Code 70 - 105 mg/dL AO ADM SS Potassium [Moles/Vol] 4.1 mmol/L Invalid Interpretation Code 3.5 - 5.1 mmol/L AO ADM SS Protein [Mass/Vol] 7.2 G/dL Invalid Interpretation Code 6.4 - 8.2 G/dL AO ADM SS Sodium [Moles/Vol] 139 mmol/L Invalid Interpretation Code 136 - 145 mmol/L AO ADM SS TSH Qn 0.68 m[IU]/L Invalid Interpretation Code 0.36 - 3.74 mcIU/mL AO ADM SS Urea nitrogen [Mass/Vol] 9 mg/dL Invalid Interpretation Code 7 - 18 mg/dL AO ADM SS Urea nitrogen/Creatinine [Mass ratio] 11 ratio Invalid Interpretation Code 7 - 27 ratio AO ADM SS LABORATORYOrdered By: SYSTEM SYSTEM on 07-09-2021 GFR 91 ml/min/1.73sqm Invalid Interpretation Code AO Chemistry S GFR Non- 75 ml/min/1.73sqm Invalid Interpretation Code AO Chemistry S LABORATORYOrdered By: Krista Saavedra on 07-09-2021 HbA1c (Bld) [Mass fraction] 7.8 % Invalid Interpretation Code 4.3 - 6.4 % AO ADM SS COVID PCR, SCREENING CONGREG ATEon 03-01-2020 CORONAVIRUS 2019,PCR NOT DETECTED Normal Not Detected [facility] Comment on above: Result Comment: This assay is designed to detect the N, ORF1ab and/or S genes of SARS-CoV-2 via nucleic acid amplification. A Negative (NOT DETECTED) result does not preclude 2019-nCoV infection since the adequacy of sample collection and/or low viral burden may result in presence of viral nucleic acids below the clinical sensitivity of this test method. Negative (NOT DETECTED) result should not be used as the sole basis for treatment or other patient management decisions. Rather negative results should be combined with clinical observations, patient history, and epidemiological information to make patient management decisions. Fact sheet for providers: https://www.fda.gov/media/498254/download Fact sheet for patients: https://www.fda.gov/media/410786/download This test has received FDA Emergency Use Authorization (EUA) and has been verified by [facility] ([facility]). This test is only authorized for the duration of time that circumstances exist to justify the authorization of the emergency use of in vitro diagnostic tests for the detection of SARS-CoV-2 virus and/or diagnosis of COVID-19 infection under section 564(b)(1) of the Act, 21 U.S.C. 360bbb-3(b)(1), unless the authorization is terminated or revoked sooner. [facility] ([facility]) is certified under CLIA-88 as qualified to perform high complexity testing. This tests analytical performance characteristics have been determined by [facility]. Testing is performed at [facility] is located at [address] [place] [address] (CLIA License #[id number], CAP #[id number]). Performed By: #### C V[facility] #### [facility] [address] [place] [address] COVID PCR, SCREENING CONGREG ATEon 02-29-2020 Lab Specimen Source Nasal, Nasopharyngeal Normal [facility] Comment on above: Performed By: #### C [facility] #### [facility] [address] [place] [address] Vital Signs Date Time Vital Sign Value Performing Clinician Facility 02-22-2025 15:41-0400 Body height 165.1 cm Donte Boyle MD Work Phone: [facility] 02-22-2025 15:41-0400 Body mass index (BMI) [Ratio] 47.71 kg/m2 Donte Boyle MD Work Phone: [facility] 02-22-2025 15:41-0400 Body temperature 97.11 [degF] Donte Boyle MD Work Phone: [facility] 02-22-2025 15:41-0400 Body weight 130.05 kg Donte Boyle MD Work Phone: [facility] 02-22-2025 15:41-0400 Diastolic blood pressure 84 mm[Hg] Donte Boyle MD Work Phone: [facility] 02-22-2025 15:41-0400 Heart rate 107 /min Donte Boyle MD Work Phone: [facility] 02-22-2025 15:41-0400 SaO2% (BldA) [Mass fraction] 97 % Donte Boyle MD Work Phone: [facility] 02-22-2025 15:41-0400 Systolic blood pressure 136 mm[Hg] Donte Boyle MD Work Phone: [facility] 10-29-2024 11:07-0500 Body height 165.[address] Sergio Jauregui DO Work Phone: [facility] 10-29-2024 11:07-0500 Body mass index (BMI) [Ratio] 48.2 kg/m2 Dr. Sergio Jauregui DO Work Phone: [facility] 10-29-2024 11:07-0500 Body temperature 98.1 [degF] Dr. Sergio Jauregui DO Work Phone: [facility] 10-29-2024 11:07-0500 Body weight 131.[address] Sergio Jauregui DO Work Phone: [facility] 10-29-2024 11:07-0500 Diastolic blood pressure 82 mm[Hg] Dr. Sergio Jauregui DO Work Phone: [facility] 10-29-2024 11:07-0500 Heart rate 88 /min Dr. Sergio Jauregui DO Work Phone: [facility] 10-29-2024 11:07-0500 Respiratory rate 16 /min Dr. Sergio Jauregui DO Work Phone: [facility] 10-29-2024 11:07-0500 SaO2% (BldA) [Mass fraction] 98 % Dr. Sergio Jauregui DO Work Phone: [facility] 10-29-2024 11:07-0500 Systolic blood pressure 154 mm[Hg] Dr. Sergio Jauregui DO Work Phone: [facility] 10-29-2023 13:15-0500 Body height 165.1 cm Simone Amin MD Work Phone: [facility] 10-29-2023 13:15-0500 Body mass index (BMI) [Ratio] 45.76 kg/m2 Simone Amin MD Work Phone: [facility] 10-29-2023 13:15-0500 Body weight 124.74 kg Simone Amin MD Work Phone: [facility] 09-03-2023 13:19-0500 Body height 165.1 cm Simone Amin MD Work Phone: [facility] 09-03-2023 13:19-0500 Body mass index (BMI) [Ratio] 45.76 kg/m2 Simone Amin MD Work Phone: [facility] [employer] 09-03-2023 13:19-0500 Body weight 124.74 kg Simone Amin MD Work Phone: [facility] [employer] 07-23-2023 13:02-0500 Body height 165.1 cm Simone Amin MD Work Phone: [facility] [employer] 07-23-2023 13:02-0500 Body mass index (BMI) [Ratio] 45.76 kg/m2 Simone Amin MD Work Phone: [facility] [employer] 07-23-2023 13:02-0500 Body weight 124.74 kg Simone Amin MD Work Phone: [facility] [employer] 06-12-2023 15:45-0400 Body temperature 97.5 [degF] Simone Amin MD Work Phone: [facility] [employer] 06-12-2023 15:45-0400 Diastolic blood pressure 86 mm[Hg] Simone Amin MD Work Phone: [facility] [employer] 06-12-2023 15:45-0400 Heart rate 80 /min Simone Amin MD Work Phone: [facility] [employer] 06-12-2023 15:45-0400 Respiratory rate 18 /min Simone Amin MD Work Phone: [facility] [employer] 06-12-2023 15:45-0400 SaO2% (BldA) [Mass fraction] 95 % Simone Amin MD Work Phone: [facility] [employer] 06-12-2023 15:45-0400 Systolic blood pressure 143 mm[Hg] Simone Amin MD Work Phone: [facility] [employer] 04-16-2023 11:35-0400 Body height 165.1 cm Simone Amin MD Work Phone: [facility] [employer] 04-16-2023 11:35-0400 Body mass index (BMI) [Ratio] 47.43 kg/m2 Simone Amin MD Work Phone: [facility] 04-16-2023 11:35-0400 Body weight 129.28 kg Simone Amin MD Work Phone: [facility] 10-11-2022 12:56-0500 Body height 165.1 cm Simone Amin MD Work Phone: [facility] 10-11-2022 12:56-0500 Body mass index (BMI) [Ratio] 45.93 kg/m2 Simone Amin MD Work Phone: [facility] 10-11-2022 12:56-0500 Body weight 125.19 kg Simone Amin MD Work Phone: [facility] 08-14-2022 09:07-0500 Heart rate 60 /min DR TOLU FRANCO MD [facility] 08-14-2022 09:07-0500 Respiratory rate 16 /min DR TOLU FRANCO MD [facility] 08-14-2022 07:33-0500 Body temperature 96.98 [degF] DR TOLU FRANCO MD [facility] 08-14-2022 07:33-0500 Diastolic Blood Pressure Non-Invasive [address] TOLU FRANCO MD [facility] 08-14-2022 07:33-0500 Heart rate 64 /min DR TOLU FRANCO MD [facility] 08-14-2022 07:33-0500 Reason For Taking VItal Signs DR TOLU FRANCO MD [facility] 08-14-2022 07:33-0500 Respiratory rate 18 /min DR TOLU FRANCO MD [facility] 08-14-2022 07:33-0500 Systolic Blood Pressure Non-Invasive [address] TOLU FRANCO MD [facility] 08-14-2022 04:29-0500 Body temperature 97.34 [degF] DR TOLU FRANCO MD [facility] 08-14-2022 04:29-0500 Diastolic Blood Pressure Non-Invasive [address] TOLU FRANCO MD [facility] 08-14-2022 04:29-0500 Heart rate 60 /min DR TOLU FRANCO MD [facility] 08-14-2022 04:29-0500 Reason For Taking VItal Signs DR TOLU FRANCO MD [facility] 08-14-2022 04:29-0500 Respiratory rate 18 /min DR TOLU FRANCO MD [facility] 08-14-2022 04:29-0500 Systolic Blood Pressure Non-Invasive [address] TOLU FRANOC MD [facility] 08-13-2022 23:30-0500 Body temperature 97.7 [degF] DR TOLU FRANCO MD [facility] 08-13-2022 23:30-0500 Diastolic Blood Pressure Non-Invasive [address] TOLU FRANCO MD [facility] 08-13-2022 23:30-0500 Heart rate 63 /min DR TOLU FRANCO MD [facility] 08-13-2022 23:30-0500 Reason For Taking VItal Signs DR TOLU FRANCO MD [facility] 08-13-2022 23:30-0500 Systolic Blood Pressure Non-Invasive [address] TOLU FRANCO MD [facility] 08-13-2022 19:20-0500 Heart rate 88 /min DR TOLU FRANCO MD [facility] 08-13-2022 11:43-0500 Body height 165.[address] TOLU FRANCO MD [facility] 08-13-2022 11:43-0500 Body weight 125.[address] TOLU FRANCO MD [facility] 08-13-2022 11:43-0500 Body weight 45.93 kg/m2 DR TOLU FRANCO MD [facility] 08-13-2022 10:08-0500 Body temperature 96.8 [degF] DR TOLU FRANCO MD [facility] 08-13-2022 10:05-0500 Respiratory Rate - Anes 0 br/min DR TOLU FRANCO MD [facility] 08-13-2022 10:00-0500 Respiratory Rate - Anes 18 br/min DR TOLU FRANCO MD [facility] 08-13-2022 09:55-0500 Respiratory Rate - Anes 17 br/min DR TOLU FRANCO MD [facility] 08-13-2022 07:44-0500 Heart rate 75 /min DR TOLU FRANCO MD [facility] 08-13-2022 07:11-0500 Body height 165.[address] TOLU FRANCO MD [facility] 08-13-2022 07:11-0500 Body temperature 98.24 [degF] DR TOLU FRANCO MD [facility] 08-13-2022 07:11-0500 Body weight 126.[address] TOLU FRANCO MD [facility] 08-13-2022 07:11-0500 Heart rate 76 /min DR TOLU FRANCO MD [facility] 07-29-2022 08:30-0500 Body height 165.[address] TOLU FRANCO MD [facility] 07-29-2022 08:30-0500 Body weight 126.[address] TOLU FRANCO MD [facility] 07-29-2022 08:30-0500 Body weight 46.41 kg/m2 DR TOLU FRANCO MD [facility] 07-29-2022 08:30-0500 diastolic 82 mm[Hg] DR TOLU FRANCO MD [facility] 07-29-2022 08:30-0500 Heart rate 76 /min DR TOLU FRANCO MD [facility] 07-29-2022 08:30-0500 Respiratory rate 16 /min DR TOLU FRANCO MD [facility] 07-29-2022 08:30-0500 systolic 128 mm[Hg] DR TOLU FRANCO MD [facility] 03-07-2022 14:29-0400 Diastolic blood pressure 65 mm[Hg] Simone Amin MD Work Phone: [facility] 03-07-2022 14:29-0400 Heart rate 88 /min Simone Amin MD Work Phone: [facility] 03-07-2022 14:29-0400 Respiratory rate 22 /min Simone Amin MD Work Phone: [facility] 03-07-2022 14:29-0400 SaO2% (BldA) [Mass fraction] 95 % Simone Amin MD Work Phone: [facility] 03-07-2022 14:29-0400 Systolic blood pressure 114 mm[Hg] Simone Amin MD Work Phone: [facility] 03-07-2022 13:22-0400 Body temperature 97.39 [degF] Simone Amin MD Work Phone: [facility] 03-07-2022 07:57-0400 Body height 165.1 cm Simone Amin MD Work Phone: [facility] 03-07-2022 07:57-0400 Body mass index (BMI) [Ratio] 45.93 kg/m2 Simone Amin MD Work Phone: [facility] 03-07-2022 07:57-0400 Body weight 125.19 kg Simone Amin MD Work Phone: [facility] 02-14-2022 10:56-0400 Body temperature 97.11 [degF] Simone Amin MD Work Phone: [facility] 02-14-2022 10:56-0400 Diastolic blood pressure 84 mm[Hg] Simone Amin MD Work Phone: [facility] 02-14-2022 10:56-0400 Heart rate 75 /min Simone Amin MD Work Phone: [facility] 02-14-2022 10:56-0400 Respiratory rate 16 /min Simone Amin MD Work Phone: [facility] 02-14-2022 10:56-0400 SaO2% (BldA) [Mass fraction] 97 % Simone Amin MD Work Phone: [facility] 02-14-2022 10:56-0400 Systolic blood pressure 145 mm[Hg] Simone Amin MD Work Phone: [facility] 06-09-2022 10:56-0400 Body height 165.1 cm Simone Amin MD Work Phone: [facility] 02-14-2022 10:56-0400 Body mass index (BMI) [Ratio] 45.99 kg/m2 Simone Amin MD Work Phone: [facility] 02-14-2022 10:56-0400 Body weight 125.36 kg Simone Amin MD Work Phone: [facility] 12-01-2021 12:51-0400 Diastolic blood pressure 75 mm[Hg] FELIBERTO CARDOSO MD [facility] 12-01-2021 12:51-0400 Heart rate 78 /min FELIBERTO CARDOSO MD [facility] 12-01-2021 12:51-0400 Respiratory rate 18 /min FELIBERTO CARDOSO MD [facility] 12-01-2021 12:51-0400 Systolic blood pressure 145 mm[Hg] FELIBERTO CARDOSO MD [facility] 12-01-2021 12:06-0400 Body temperature 98.24 [degF] FELIBERTO CARDOSO MD [facility] 12-01-2021 12:06-0400 Diastolic blood pressure 85 mm[Hg] FELIBERTO CARDOSO MD [facility] 12-01-2021 12:06-0400 Heart rate 76 /min FELIBERTO CARDOSO MD [facility] 12-01-2021 12:06-0400 Respiratory rate 18 /min FELIBERTO CARDOSO MD [facility] 12-01-2021 12:06-0400 Systolic blood pressure 167 mm[Hg] FELIBERTO CARDOSO MD [facility] Encounters Encounter Date Encounter Type Care Provider Facility Start: 05-04-2025 End: 05-04-2025 Subsequent hospital visit by physician Russel Sosa [address] [facility] Comment on above: Encounter for screen ing for cardiovascular disorders; Type 2 diabetes mellitus without complications Start: 05-04-2025 End: 05-04-[address] [facility] Start: 04-19-2025 End: 04-19-2025 ambulatory HERBIE MAST CARDIAC CATHETERIZATION TECHNOLOGIST-SENIOR STATISTICIAN Facility:[facility] Start: 04-19-2025 End: 04-19-2025 Patient encounter procedure CAMERON SIMPSON DO [facility] Start: 04-12-2025 End: 04-12-2025 ambulatory HERBIE MAST CARDIAC CATHETERIZATION TECHNOLOGIST-SENIOR STATISTICIAN Facility:[facility] Start: 04-12-2025 End: 04-12-[address] LENA HERNANDEZ MD [facility] Start: 04-05-2025 End: 04-05-2025 ambulatory [facility] Facility:[facility] Start: 04-05-2025 End: 04-05-2025 Nursing evaluation of patient and report Nurse Gens [facility] Work Phone: General Surgery Comment on above: Visit for wound chec k (Primary Dx) Start: 03-22-2025 End: 03-22-2025 Patient encounter procedure Donte Boyle MD Work Phone: General Surgery Comment on above: Lipoma of right uppe r extremity (Primary Dx) Start: 03-22-2025 End: 03-22-2025 ambulatory Donte Boyle Facility:[facility] Start: 03-17-2025 End: 03-17-2025 ambulatory HERBIE MAST DESULFURIZER HAND Work Phone: -[facility] Start: 03-17-2025 End: 03-17-2025 Patient encounter procedure Rita TAN -[facility] Work Phone: Start: 03-17-2025 End: 03-17-2025 ambulatory Rita TAN Facility:[facility] Start: 02-23-2025 End: 02-23-2025 ambulatory HERBIE MAST CARDIAC CATHETERIZATION TECHNOLOGIST-SENIOR STATISTICIAN Facility:[facility] Start: 02-23-2025 End: 02-23-2025 Patient encounter procedure HERBIE MAST CARDIAC CATHETERIZATION TECHNOLOGIST-SENIOR STATISTICIAN [facility] Start: 02-23-2025 End: 02-23-2025 AMB External Visit HERBIE MAST CARDIAC CATHETERIZATION TECHNOLOGIST-SENIOR STATISTICIAN [facility] [place] Start: 02-22-2025 End: 02-22-2025 Patient encounter procedure Donte Boyle MD Work Phone: General Surgery Comment on above: Benign lipomatous ne oplasm of skin and subcutaneous tissue Start: 02-22-2025 End: 02-22-2025 ambulatory Donte Boyle Facility:[facility] Start: 02-15-2025 End: 02-15-2025 Chart abstracting Donte Boyle MD Work Phone: General Surgery Start: 02-13-2025 End: 02-13-2025 Emergency department patient visit BAO FELIBERTO DO [facility] Start: 02-02-[address] LENA HERNANDEZ MD Fa cility:[facility] Start: 11-09-2024 End: 11-09-2024 ambulatory CAMERON SIMPSON DO Facility:[facility] Start: 10-29-2024 End: 10-29-[address] Sergio Jauregui DO Work Phone: [facility] Work Phone: Start: 10-29-2024 End: 10-29-2024 Patient encounter procedure Donnie Tapia [facility] Work Phone: Start: 10-29-2024 End: 10-29-2024 ambulatory Cameron Simpson Facility:[facility] Start: 09-06-2024 End: 09-06-[address] Elisabeth Willoughby MD -[facility] Work Phone: Start: 09-06-2024 End: 09-06-2024 ambulatory Sergio Shania Facility:[facility] Start: 08-27-2024 End: 08-31-2024 ambulatory SERGIO JAUREGUI DO Facility[facility] Start: 08-27-2024 End: 08-31-2024 Encounter for general adult medical examination without abnormal findings MANJIT WILLOUGHBY MD Facility:[facility] Start: 08-27-2024 End: 08-31-2024 Outreach Lab MANJIT WILLOUGHBY MD [facility] Start: 08-24-2024 End: 08-28-2024 ambulatory SERGIO JAUREGUI DO Facility:[facility] Start: 08-24-2024 End: 08-28-2024 Encounter for general adult medical examination without abnormal findings MANJIT WILLOUGHBY MD Facility: Start: 08-17-2024 End: 08-17-2024 ambulatory SERGIO JAUREGUI DO [facility] Start: 08-17-2024 End: 08-17-2024 Patient encounter procedure CAMERON SIMPSON DO [facility] Start: 08-10-2024 End: 08-10-[address] Lena Hernandez MD -Laboratory, [facility] Work Phone: Start: 08-10-2024 End: 08-10-2024 ambulatory Lena Hernandez Facility:[facility] Start: 05-18-2024 End: 05-18-2024 ambulatory CAMERON SIMPSON DO Facility[facility] Start: 05-18-2024 End: 05-18-2024 Patient encounter procedure CAMERON SIMPSON DO [facility] Start: 03-16-2024 End: 03-20-2024 ambulatory ROSA COVINGTON CARDIAC CATHETERIZATION TECHNOLOGIST-SENIOR STATISTICIAN Facility:[facility] Start: 03-16-2024 End: 03-20-2024 Outreach Lab ROSA COVINGTON CARDIAC CATHETERIZATION TECHNOLOGIST-SENIOR STATISTICIAN [facility] Start: 11-12-2023 End: 11-12-2023 ambulatory [facility] Work Phone: Start: 11-12-2023 End: 11-12-2023 Patient encounter procedure [facility] Work Phone: Start: 10-29-2023 End: 10-29-2023 ambulatory [facility] Start: 10-29-2023 End: 10-29-2023 Office outpatient visit 10 minutes Simone Amin MD Work Phone: [facility] Comment on above: 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) Start: 10-20-2023 End: 10-20-2023 Orders Only Rocael TAN Work Phone: [facility] Comment on above: 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) Start: 10-20-2023 End: 10-20-2023 Patient encounter procedure CAMERON SIMPSON DO [facility] Start: 10-16-2023 End: 10-16-2023 ambulatory [facility] Work Phone: Start: 10-16-2023 End: 10-16-2023 Patient encounter procedure [facility] Work Phone: Start: 09-03-2023 End: 09-03-2023 ambulatory [facility] Start: 09-03-2023 End: 09-03-2023 Postop follow up visit related to original px Simone Amin MD Work Phone: [facility] Comment on above: 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) Start: 08-21-2023 End: 08-21-2023 ambulatory [facility] Work Phone: Start: 08-21-2023 End: 08-21-2023 Patient encounter procedure [facility] Work Phone: Start: 08-18-2023 End: 08-18-2023 ambulatory [facility] Work Phone: Start: 08-18-2023 End: 08-18-2023 Patient encounter procedure [facility] Work Phone: Start: 07-24-2023 Orders Only Rocael TAN Work Phone: [facility] Comment on above: 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) Start: 07-23-2023 End: 07-23-2023 ambulatory [facility] Start: 07-23-2023 End: 07-23-2023 Postop follow up visit related to original px Simone Amin MD Work Phone: [facility] Comment on above: 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) Start: 07-09-2023 End: 07-09-2023 ambulatory [facility] Work Phone: Start: 07-09-2023 End: 07-09-2023 Patient encounter procedure [facility] Work Phone: Start: 06-26-2023 Orders Only Rocael TAN Work Phone: [facility] Comment on above: 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) Start: 06-25-2023 End: 06-25-2023 ambulatory ROCAEL POLO [facility] Start: 06-25-2023 End: 06-25-2023 Postop follow up visit related to original px Rocael TAN Work Phone: [facility] Comment on above: 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) Start: 06-12-2023 End: 06-13-2023 ambulatory [facility] Start: 06-12-2023 End: 06-12-2023 ambulatory [facility] Start: 06-12-2023 End: 06-12-2023 Subsequent hospital visit by physician [facility] Comment on above: Arrived Start: 06-12-2023 End: 06-12-2023 Subsequent hospital visit by physician Simone Amin MD Work Phone: [facility] Comment on above: Arthritis of foot (P rimary Dx); Pseudarthrosis after fusion or arthrodesis Start: 06-11-2023 End: 06-11-2023 ambulatory [facility] Start: 06-09-2023 ambulatory Rocael Charlydagmar TAN Work Phone: [facility] Start: 05-30-2023 End: 05-31-2023 Transcribe Orders Cameron Simpson DO Work Phone: [facility] Comment on above: Type 2 diabetes regine itus with hyperglycemia (CMS/HCC) (HCC) (Primary Dx) Start: 05-28-2023 End: 05-28-2023 ambulatory [facility] Start: 05-21-2023 Orders Only Rocael TAN Work Phone: [facility] Comment on above: 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) Start: 04-16-2023 End: 04-16-2023 ambulatory ROCAEL POLO [facility] Start: 04-16-2023 End: 04-16-2023 Office outpatient visit 25 minutes Simone Amin MD Work Phone: [facility] Comment on above: 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); Arthritis of foot; Rheumatoid arthritis of left foot, unspecified whether rheumatoid factor present (HCC) Start: 04-11-2023 Orders Only Rocael TAN Work Phone: [facility] Comment on above: Arthritis of foot (P rimary Dx) Start: 04-10-2023 End: 04-10-2023 Patient encounter procedure [facility] Work Phone: Start: 04-08-2023 ambulatory Rowan alvarado RN [facility] Clinical Communication Start: 04-08-2023 Patient encounter procedure Rowan Cardona RN [facility] Clinical Communication Start: 12-31-2022 End: 12-31-2022 ambulatory [facility] Work Phone: Start: 12-31-2022 End: 12-31-2022 Patient encounter procedure [facility] Start: 10-28-2022 End: 10-28-2022 ambulatory [facility] Work Phone: Start: 10-28-2022 End: 10-28-2022 Patient encounter procedure [facility] Start: 10-11-2022 End: 10-11-2022 Office outpatient visit 10 minutes Simone Amin MD Work Phone: [facility] [place] Comment on above: Arthritis of foot (P rimary Dx) Start: 10-11-2022 End: 10-11-2022 Subsequent hospital visit by physician Simone Amin MD Work Phone: [facility] Radiology Comment on above: Traumatic rupture of left anterior tibial tendon, subsequent encounter Start: 09-30-2022 End: 09-30-2022 ambulatory [facility] Work Phone: Start: 09-30-2022 End: 09-30-2022 Patient encounter procedure [facility] Start: 08-28-2022 End: 08-28-2022 Patient encounter procedure [facility] Start: 08-13-2022 End: 08-14-[address] TOLU FRANCO MD [facility] Start: 08-07-2022 End: 08-07-2022 ambulatory [facility] Work Phone: Start: 08-07-2022 End: 08-07-2022 Patient encounter procedure [facility] Start: 07-29-2022 End: 07-29-[address] TOLU FRANCO MD [facility] Start: 06-03-2022 End: 06-03-2022 ambulatory [facility] Work Phone: Start: 06-03-2022 End: 06-03-2022 Patient encounter procedure [facility] Start: 05-31-2022 ambulatory [facility] Start: 05-31-2022 End: 05-31-2022 Subsequent hospital visit by physician Rocael TAN Work Phone: [employer] Radiology Comment on above: Traumatic rupture of left anterior tibial tendon, subsequent encounter Start: 05-10-2022 End: 05-10-2022 ambulatory [facility] Work Phone: Start: 05-10-2022 End: 05-10-2022 Patient encounter procedure [facility] Start: 04-19-2022 ambulatory [facility] Start: 04-19-2022 End: 04-19-2022 Subsequent hospital visit by physician Rocael TAN Work Phone: [employer] Radiology Comment on above: Arthritis of foot Start: 03-07-2022 End: 03-07-2022 ambulatory [facility] Start: 03-07-2022 End: 03-07-2022 Subsequent hospital visit by physician Simnoe Amin MD Work Phone: [facility] Comment on above: Traumatic rupture of left anterior tibial tendon, subsequent encounter (Primary Dx); Arthritis of foot Start: 02-14-2022 ambulatory [facility] Start: 02-14-2022 Encounter for other preprocedural examination [facility] Start: 02-14-2022 End: 02-14-2022 Subsequent hospital visit by physician Simone Amin MD Work Phone: [facility] Pre-Admit Testing Comment on above: Arrived Start: 02-08-2022 ambulatory [facility] Start: 02-08-2022 End: 02-08-2022 Subsequent hospital visit by physician Simone Amin MD Work Phone: [facility] [place] [facility] Start: 01-31-2022 End: 01-31-2022 Patient encounter procedure [facility] Start: 12-01-2021 End: 12-01-2021 Emergency department patient visit FELIBERTO CARDOSO MD [facility] Start: 11-20-2021 End: 11-20-[address] LENA HERNANDEZ MD [facility] Start: 10-19-2021 End: 10-19-2021 Patient encounter procedure [facility] Start: 10-04-2021 End: 10-08-2021 Outreach Lab [facility] CARDIAC CATHETERIZATION TECHNOLOGIST-SENIOR STATISTICIAN [facility] Start: 07-09-2021 End: 07-09-2021 Patient encounter procedure CAMERON SIMPSON DO [facility] Procedures Date Procedure Procedure Detail Performing Clinician Start: 03-17-2025 Serologic test for syphilis HERBIE DEWEY Work Phone: Start: 09-06-2024 Screening mammography Blu armandoEstefania Sergio Jauregui DO Work Phone: Start: 08-21-2023 End: 08-21-2023 Screening mammography Start: 06-12-2023 Glucose quantitative blood xcpt reagent [...] Simone Amin MD Work Phone: Start: 08-28-2022 End: 08-28-2022 Screening mammography Start: 08-13-[address] TOLU FRANCO MD Comment on above: LEFT Start: 03-07-2022 Gluc bld gluc mntr d ev cleared fda spec home use Simone Amin MD Work Phone: Start: 03-07-2022 Gluc bld gluc mntr d ev cleared fda spec home use Simone Amin MD Work Phone: Start: 02-14-2022 Ecg routine ecg w/le ast 12 lds w/i&r Sam Lau MD Work Phone: Start: 01-05-2019 Arthroplasty of knee using cement CAMERON SIMPSON DO Comment on above: ROBOTIC ASSISTED RIG HT KNEE ARTHROPLASTY Start: 08-14-2018 Mammography [facility] Start: 08-14-2018 Mammography CAMERON AGUILAR DO Comment on above: BI-RADS 0; [facility] recom mended US Start: 08-14-2018 Ultrasonography CAMERON REYES DO Comment on above: Normal; RT: 2 benign appearing right axillary lymph nodes, LT: 2benign appearing axillary lymph nodes, Category 2: Benign [facility] Start: 09-08-2008 Colonoscopy CAMERON AGUILAR DO Comment on above: within normal limits Start: 09-08-2006 Thyroid structure (b ksenia structure) CAMERON SIMPSON DO Comment on above: partial removal Ankle region structu re (body structure) DR TOLU FRANCO MD Comment on above: left Arthroscopy of knee CAMERON FLOWERECHRadames DO Comment on above: Bilateral Bilateral tubal ligation NATHAN SIMPSON DO section CAMERON SERRANO CHA DO Comment on above: x2 Cholecystectomy CAMERON TRAYLOR LOPES DO Diagnostic laparosco py of female pelvis CAMERON SIMPSON DO Endometrial ablation CAMERON REYES DO History of subtotal thyroidectomy CAMERON SIMPSON DO Nasal septoplasty CAMERON AGUILAR DO Plan of Treatment Date Care Activity Detail Author Start: 12-01-2031 DTaP/Tdap/Td vaccine (3 - Td or Tdap) DTaP/Tdap/Td vaccine (3 - Td or Tdap) [facility] Start: 12-01-2031 DTaP/Tdap/Td vaccine (4 - Td or Tdap) DTaP/Tdap/Td vaccine (4 - Td or Tdap) [facility] Start: 12-01-2031 DTaP/Tdap/Td Vaccine s (4 - Td or Tdap) DTaP/Tdap/Td Vaccines (4 - Td or Tdap) [facility] Start: 12-01-2031 Urine microalbumin profile DTaP,Tdap,Td Vaccine (4 - Td or Tdap) [facility] Start: 2028 RSV Immunization age d 60 or older (1 - 1-dose 60+ series) RSV Immunization aged 60 or older (1 - 1-dose 60+ series) [facility] Start: 05-30-2026 Diabetes Screening Diabetes Screenin g [facility] Start: 05-09-2025 Influenza vaccination C [facility] Start: 04-05-2025 End: 04-05-2025 Nursing evaluation of patient and report 04/05/2025 2:00 PM EDT Nurse Visit General Surgery [address] [place], [place] [id number] Wstr, Nurse [place] [facility] [address] [place] [address] CHECK WOUND General Surgery Comment on above: CHECK WOUND Start: 03-17-2025 Borrelia burgdorferi blot test [facility] Start: 03-08-2025 End: 03-08-2025 Patient encounter procedure 03/08/2025 3:00 PM EDT Office Visit General Surgery [address] [place] [address] Donte Boyle MD [address] [place] [address] brianne'd 30 min ecision lipoma right upper arm General Surgery Comment on above: brianne'd 30 min ecision lipoma right upper arm Start: 02-22-2025 End: 02-22-2025 Patient encounter procedure 02/22/2025 3:45 PM EDT Office Visit General Surgery [address] [place] [address] Donte Boyle MD [address] [place] [address] CONSULT: Lipoma: right upper back. Referral from Xochitl Paulino. [facility] General Surgery Comment on above: CONSULT: Lipoma: rig ht upper back. Referral from [facility]. [facility] Start: 08-21-2024 Screening for malign ant neoplasm of breast Mammogram [facility] Start: 05-30-2024 Hemoglobin A1c measurement Diabetes: Hemoglobin A1C [facility] Start: 05-09-2024 Covid-19 Vaccine ( season) Covid-19 Vaccine () [facility] Start: 05-09-2024 COVID-19 Vaccine () COVID-19 Vaccine () [facility] Start: 05-09-2024 Covid-19 Vaccine () Covid-19 Vaccine () [facility] Start: 10-29-2023 End: 10-20-2024 XR Foot - left 3 Views XR foot 3+ views left Imaging Routine Nonunion after arthrodesis Expected: 10/29/2023, Expires: 10/20/2024 [facility] Work Phone: Comment on above: Expected: 10/29/2023 , Expires: 10/20/2024 Start: 10-29-2023 End: 10-29-2023 Patient encounter procedure 10/29/2023 1:00 PM EST Office Visit [facility] [address] [place] [phone] Simone Amin MD [address] [place], [place] [phone] [facility] Start: 09-03-2023 End: 07-24-2024 XR Foot - left 3 Views XR foot 3+ views left Imaging Routine Nonunion after arthrodesis Expected: 09/03/2023, Expires: 07/24/2024 [facility] Work Phone: Comment on above: Expected: 09/03/2023 , Expires: 07/24/2024 Start: 09-03-2023 End: 09-03-2023 Patient encounter procedure 09/03/2023 1:00 PM EST Office Visit [facility] [address] [place] [phone] Simone Amin MD [address] [facility] [facility] [address] [place], [place] [id number] [facility] Start: 08-29-2023 Hemoglobin A1c measurement Diabetes: Hemoglobin A1C [facility] Start: 08-28-2023 Screening for malign ant neoplasm of breast Mammogram [facility] Start: 07-23-2023 End: 06-26-2024 XR Foot - left 3 Views XR foot 3+ views left Imaging Routine Nonunion after arthrodesis Expected: 07/23/2023, Expires: 06/26/2024 [facility] [employer] Work Phone: Comment on above: Expected: 07/23/2023 , Expires: 06/26/2024 Start: 07-23-2023 End: 07-23-2023 Patient encounter procedure 07/23/2023 1:30 PM EST Office Visit [facility] [address] [place] [phone] Simone Amin MD [address] [facility] [address] [place], [place] [phone] [facility] Start: 06-25-2023 End: 06-25-2023 Patient encounter procedure [facility] Start: 06-13-2023 End: 06-13-2023 Patient encounter procedure 06/13/2023 3:15 PM EDT Office Visit [facility] [address] [place] [phone] Simone Amin MD [address] [facility] [facility] [address] [place] [phone] [facility] Start: 06-13-2023 End: 06-13-2023 Documentation procedure 06/13/2023 2:45 PM EDT Documentation [facility] [address] [place] [address] [facility] Start: 06-13-2023 End: 05-21-2024 XR Foot - left 3 Views XR foot 3+ views left Imaging Routine Nonunion after arthrodesis Expected: 06/13/2023, Expires: 05/21/2024 [facility] Work Phone: Comment on above: Expected: 06/13/2023 , Expires: 05/21/2024 Start: 06-12-2023 End: 06-12-2023 Admission to same day surgery center 06/12/2023 11:00 AM EDT - 06/12/2023 1:30 PM EDT Surgery [facility] MAIN OR [address] [place] [phone] Simone Amin MD [address] [facility] [facility] [address] [place] [id number] LEFT FOOT REMOVAL DEEP IMPLANT, REVISION CALCANEOCUBOID JOINT AND TALONAVICULAR JOINT ARTHRODESIS [ (CPT )] [facility] MAIN OR Comment on above: LEFT FOOT REMOVAL DE EP IMPLANT, REVISION CALCANEOCUBOID JOINT AND TALONAVICULAR JOINT ARTHRODESIS [ (CPT )] Start: 06-12-2023 End: 06-12-2023 Arthrd midtarsl/tars fur dry cleaner/transvrs w/osteot ARTHRODESIS FOOT MIDTARSAL OR METATARSAL WITH OSTEOTOMY Pseudarthrosis after fusion or arthrodesis 06/12/2023 11:00 AM EDT [facility] Operating Room Start: 06-12-2023 End: 06-12-2023 Removal implant deep REMOVAL OF IMPLANT DEEP (WIRE PIN SCREW RENA PLATE METAL BAND NAIL) Pseudarthrosis after fusion or arthrodesis 06/12/2023 11:00 AM EDT [facility] Operating Room Start: 06-12-2023 Subsequent hospital visit by physician 06/12/2023 11:00 AM EDT Hospital Encounter [facility] MAIN OR [address] [place] [phone] Simone Amin MD [address] [facility] [facility] [address] [place] [address] [facility] MA[facility] OR Start: 06-11-2023 End: 06-11-2023 Admission to establishment 06/11/2023 9:00 AM EDT Pre-Admission Testing [facility] Pre-Admit Testing [address] [place] [phone] [facility]-Admit [facility] Start: 05-09-2023 COVID-19 Vaccine () COVID-19 Vaccine () [facility] Start: 05-09-2023 Influenza vaccination Influenza Vacc ine (#1) [facility] Start: 04-16-2023 End: 04-16-2024 25-hydroxyvitamin D3 [Mass/volume] in Serum or Plasma Vitamin D Deficiency Screening (Vit D 25) Lab Routine Nonunion after arthrodesis Expected: 04/16/2023 (Approximate), Expires: 04/16/2024 [facility] [employer] Work Phone: Comment on above: Expected: 04/16/2023 (Approximate), Expires: 04/16/2024 Start: 04-16-2023 End: 04-16-2024 C reactive protein [Mass/volume] in Serum or Plasma C-reactive protein Lab Routine Nonunion after arthrodesis Expected: 04/16/2023 (Approximate), Expires: 04/16/2024 [facility] Comment on above: Expected: 04/16/2023 (Approximate), Expires: 04/16/2024 Start: 04-16-2023 End: 04-16-2024 Calcium.ionized [Moles/volume] in Blood Calcium, ionized Lab Routine Nonunion after arthrodesis Expected: 04/16/2023 (Approximate), Expires: 04/16/2024 [facility] Comment on above: Expected: 04/16/2023 (Approximate), Expires: 04/16/2024 Start: 04-16-2023 End: 04-16-2024 CBC W Auto Differential panel - Blood CBC auto differential Lab Routine Nonunion after arthrodesis Expected: 04/16/2023 (Approximate), Expires: 04/16/2024 [facility] Comment on above: Expected: 04/16/2023 (Approximate), Expires: 04/16/2024 Start: 04-16-2023 End: 04-16-2024 Erythrocyte sedimentation rate Sedimentation rate, automated Lab Routine Nonunion after arthrodesis Expected: 04/16/2023 (Approximate), Expires: 04/16/2024 [facility] Comment on above: Expected: 04/16/2023 (Approximate), Expires: 04/16/2024 Start: 04-16-2023 End: 04-11-2024 XR Foot - left 3 Views XR foot 3+ views left Imaging Routine Arthritis of foot Expected: 04/16/2023, Expires: 04/11/2024 [facility] [employer] Work Phone: Comment on above: Expected: 04/16/2023 , Expires: 04/11/2024 Start: 04-16-2023 End: 04-16-2023 Patient encounter procedure 04/16/2023 11:45 AM EDT Office Visit [facility] [address] [facility] [address] [place] [phone] Simone Amin MD [address] [facility] [address] [place] [address] [facility] Start: 07-26-2022 End: 07-26-2022 Patient encounter procedure 07/26/2022 Office Visit Orthopedic Surgery Simone Amin MD [address] [facility] [facility] [address] [place], [place] [phone] [facility] [place] Start: 07-26-2022 End: 07-26-2022 Nursing evaluation of patient and report 07/26/2022 Nurse Only Orthopedic Surgery [facility] [place] Start: 05-31-2022 End: 05-31-2022 Patient encounter procedure 05/31/2022 Office Visit Orthopedic Surgery Simone Amin MD [address] [facility] [facility] [address] [place] [address] [facility] Orthopedics [facility] [place] Start: 05-31-2022 End: 05-31-2022 Nursing evaluation of patient and report 05/31/2022 Nurse Only Orthopedic Surgery [facility] Orthopedics [facility] Start: 05-09-2022 Influenza vaccination Influenza Vacc ine (#1) [facility] Start: 03-22-2022 End: 03-22-2022 Patient encounter procedure 03/22/2022 Office Visit Orthopedic Surgery Simone Amin MD [address] [facility] [facility] [address] [place] [address] [facility] Orthopedics [facility] Start: 03-06-2022 End: 03-06-2022 Patient encounter procedure 03/06/2022 Office Visit Orthopedic Surgery Rocael Polo PA [address] [facility] [address] [facility] [address] [place], [place] [phone] [facility] Orthopedics [facility] Start: 02-21-2022 End: 02-21-2022 Patient encounter procedure 02/21/2022 Appointment General Surgery Simone Amin MD [address] [facility] [facility] [address] [place], [place] [phone] [facility] Start: 11-24-2021 COVID-19 Vaccine (4 - Booster for Pfizer series) COVID-19 Vaccine (4 - Booster for Pfizer series) [facility] Start: 09-21-2021 COVID-19 Vaccine (4 - Booster for Pfizer series) COVID-19 Vaccine (4 - Booster for Pfizer series) [facility] Start: 09-21-2021 COVID-19 Vaccine (4 - Pfizer series) COVID-19 Vaccine (4 - Pfizer series) [facility] Start: 02-19-2018 Pneumococcal Vaccine : 50+ (1 of 1 - PCV) Pneumococcal Vaccine: 50+ (1 of 1 - PCV) [facility] Start: 02-19-2018 Screening for malign ant neoplasm of breast Breast cancer screen [facility] Start: 02-19-2018 Shingles vaccine (1 of 2) Shingles vaccine (1 of 2) [facility] Start: 02-19-2018 Shingrix Vaccine (1 of 2) Shingrix Vaccine (1 of 2) [facility] Start: 02-19-2018 Zoster Vaccines (1 of 2) Zoster Vacc bo (1 of 2) [facility] Start: 02-19-2013 Diabetes Screening Diabetes Screenin g [facility] Start: 02-19-2013 Lipid panel Lipid Screening [facility] Start: 02-19-2013 Screening for malign ant neoplasm of colon [facility] Start: 2008 Lipid panel Lipids [facility] Start: 2008 Screening for malign ant neoplasm of breast [facility] Start: 02-19-2003 Diabetes screen Diabetes screen [facility] Start: 02-19-1998 Screening for malign ant neoplasm of cervix [facility] Start: 02-19-1989 Screening for malign ant neoplasm of cervix [facility] Start: 02-19-1987 Hepatitis B Vaccine (1 of 3 - 19+ 3-dose series) Hepatitis B Vaccine (1 of 3 - 19+ 3-dose series) [facility] Start: 02-19-1987 Hepatitis B Vaccines (1 of 3 - 19+ 3-dose series) Hepatitis B Vaccines (1 of 3 - 19+ 3-dose series) [facility] Start: 02-19-1987 Pneumococcal vaccination Pneum ococcal Vaccine (1 of 2 - PCV) [facility] Start: 02-19-1987 Pneumococcal Vaccine : 50+ (1 of 2 - PCV) Pneumococcal Vaccine: 50+ (1 of 2 - PCV) [facility] Start: 02-19-1987 Shingrix Vaccine (1 of 2) Shingrix Vaccine (1 of 2) [facility] Start: 02-19-1987 Urine microalbumin profile DTaP,Tdap,Td Vaccine (1 - Tdap) [facility] Start: 02-19-1987 Urine screening for protein Diabetes: Urine Protein Screening [facility] Start: 02-19-1986 Anxiety Screening Anxiety Screening [facility] Start: 02-19-1986 Depression Screening Depression Scre ening [facility] Start: 02-19-[address] C [address] [facility] Start: 02-19-1986 HIV screening HIV Screening [facility] Start: 02-19-1983 HIV screening HIV screen [facility] Start: 1980 Depression Screen Depression Screen [facility] Start: 1980 Depression Screening Depression Scre ening [facility] Start: 02-19-1979 Screening for malign ant neoplasm of cervix Cervical Cancer Screening [facility] Start: 02-19-1978 Diabetic foot examination Diabetes: Foot Exam [facility] Start: 02-19-1978 Glaucoma screening Diabetes: R etinopathy Screening [facility] Start: 02-19-1978 Preventive dental service Diabetes: Dental Exam [facility] Start: 02-19-1974 Pneumococcal Vaccine : Pediatrics (0 to 5 Years) and At-Risk Patients (6 to 64 Years) (1 - PCV) Pneumococcal Vaccine: Pediatrics (0 to 5 Years) and At-Risk Patients (6 to 64 Years) (1 - PCV) [facility] Start: 02-19-1974 Pneumococcal Vaccine : Pediatrics (0 to 5 Years) and At-Risk Patients (6 to 64 Years) (1 of 2 - PCV) Pneumococcal Vaccine: Pediatrics (0 to 5 Years) and At-Risk Patients (6 to 64 Years) (1 of 2 - PCV) [facility] Start: 02-19-1969 MMR Vaccines (1 of 1 - Standard series) MMR Vaccines (1 of 1 - Standard series) [facility] Start: 1968 Hemoglobin A1c measurement Diabetes: Hemoglobin A1C [facility] Start: 1968 Hepatitis B Vaccines (1 of 3 - 3-dose series) Hepatitis B Vaccines (1 of 3 - 3-dose series) [facility] Start: 1968 HIV screening HIV Screening [facility] Start: 1968 Lipid panel Lipid Panel [facility] Start: 1968 Screening for malign ant neoplasm of colon [facility] Start: 1968 Thyroid stimulating hormone measurement TSH Level [facility] Start: 1968 Urine screening for protein Diabetes: Urine Protein Screening [facility] Start: 1968 Yearly Adult Physical [facility]ly [facility] Aerobic and Anaerobi c Culture with Stain [facility] Work Phone: Comment on above: Release Upon Polo manley for 1 Occurrences starting 06/12/2023 Bacteria identified in Unspecified specimen by Aerobe culture Culture, Aerobic Bacteria with Gram Stain Microbiology Routine Pseudarthrosis after fusion or arthrodesis 06/12/2023 12:55 PM EDT [facility] [employer] End: 06-12-2023 Bacteria identified in Unspecified specimen by Anaerobe culture [facility] Comment on above: Once for 1 Occurrenc es starting 06/12/2023 until 06/12/2023 Blood glucose - POCT Blood gluco se - POCT Point of Care Testing STAT As Needed until discontinued starting 03/07/2022 [employer] Work Phone: Comment on above: As Needed until disc ontinued starting 03/07/2022 End: 05-04-2025 CT for calcium scoring WO contrast and CTA W contrast IV Heart and coronary arteries [facility] Service Area Work Phone: Comment on above: Once for 1 Occurrenc es starting 05/04/2025 until 05/04/2025 End: 03-07-2022 FL Greater Than 1 Hour [employer] Work Phone: Comment on above: Once for 1 Occurrenc es starting 03/07/2022 until 03/07/2022 End: 03-07-2022 INITIATE PACU OXYGEN THERAPY PROTOCOL Initiate PACU Oxygen Therapy Protocol Respiratory Care Routine Continuous until discontinued starting 03/07/2022 [employer] Work Phone: Comment on above: Continuous until dis continued starting 03/07/2022 End: 03-07-2022 Intermittent pulse oximetry Pulse Oximetry Spot Check Respiratory Care Routine One Time for 1 Occurrences starting 03/07/2022 until 03/07/2022 [employer] Work Phone: Comment on above: One Time for 1 Occur rences starting 03/07/2022 until 03/07/2022 Laboratory data interpretation [facility] Nasal Cannula Oxygen Nasal Cannu la Oxygen Respiratory Care Routine As Needed until discontinued starting 03/07/2022 [employer] Work Phone: Comment on above: As Needed until disc ontinued starting 03/07/2022 Nasal Cannula Oxygen Nasal Cannu la Oxygen Respiratory Care Routine As Needed until discontinued starting 03/07/2022 [employer] Work Phone: Comment on above: As Needed until disc ontinued starting 03/07/2022 Nonrebreather mask oxygen Nonrebreather mask oxygen Respiratory Care Routine As Needed until discontinued starting 03/07/2022 [facility] Work Phone: Comment on above: As Needed until disc ontinued starting 03/07/2022 Nonrebreather mask oxygen Nonrebreather mask oxygen Respiratory Care Routine As Needed until discontinued starting 03/07/2022 [facility] Work Phone: Comment on above: As Needed until disc ontinued starting 03/07/2022 Oxygen therapy [[facility] Data Set] Initiate Oxygen Therapy Protocol Respiratory Care Routine As Needed until discontinued starting 03/07/2022 [facility] Work Phone: Comment on above: As Needed until disc ontinued starting 03/07/2022 Spirometry panel Incentive jacob metry Respiratory Care Routine Q1H PRN until discontinued starting 03/07/2022 [facility] Work Phone: Comment on above: Q1H PRN until discon tinued starting 03/07/2022 Tissue Pathology bio psy report SURGICAL PATHOLOGY Lab Routine Lipoma of right upper extremity Ordered: 03/22/2025 [facility] Work Phone: Comment on above: Ordered: 03/22/2025 End: 10-11-2022 XR Foot - left 3 Views [facility] [employer] Work Phone: Comment on above: Once for 1 Occurrenc es starting 10/11/2022 until 10/11/2022 End: 02-08-2022 XR FOOT LEFT (MIN 3 VIEWS) [facility] Work Phone: Comment on above: Once for 1 Occurrenc es starting 02/08/2022 until 02/08/2022 End: 04-19-2022 XR FOOT LEFT (MIN 3 VIEWS) [facility] Work Phone: Comment on above: 1 Occurrences starti ng 04/19/2022 until 04/19/2022 End: 05-31-2022 XR FOOT LEFT (MIN 3 VIEWS) [facility] Work Phone: Comment on above: 1 Occurrences starti ng 05/31/2022 until 05/31/2022 [facility] Immunizations Immunization Date Immunization Notes Care Provider Fa leonel 11-30-2021 tetanus toxoid, redu arelis diphtheria toxoid, and acellular pertussis vaccine, adsorbed; Translations: [Boostrix (Tdap)] FELIBERTO CARDOSO MD [facility] 07-27-2021 SARS-CoV-2 mRNA (tozinameran) vaccine DR TOLU FRANCO MD [facility] Comment on above: Result Comment: 2021: TPV4 10-05-2020 SARS-CoV-2 (COVID-19 ) mRNA BNT-162b2 vax CAMERON CURRYMAIRATAVO DO [facility] 09-14-2020 SARS-CoV-2 (COVID-19 ) mRNA BNT-162b2 vax CAMERON SIMPSON DO [facility] 03-06-2016 tetanus toxoid, redu arelis diphtheria toxoid, and acellular pertussis vaccine, adsorbed CAMERON CURRYMAIRATAVO DO [facility] Payers Date Payer Category Payer Managed Care (Private) [facility] [id number] 2024 Self-pay [id number] 2023 Unknown [id number] 2021 Private Health Insurance 5 [id number] 2021 Unknown [id number] 2021 Unknown 2014 Unknown [id number] 1968 Unknown [id number] 2.16.840.1.986253.3.579. 2. 1968 Unknown [id number] 2.16.840.1.478089.3.579. 2 1968 Unknown [id number] 2.16.840.1.276673.3.579. 2 1968 Unknown [id number] 2.16.840.1.130467.3.579. 2 1968 Unknown [id number] 2.16.840.1.518761.3.579. 2 1968 Unknown [id number] 2.16.840.1.331849.3.579. 2. 1968 Unknown [id number] 2.16.840.1.022404.3.579. 2. 1968 Unknown [id number] 2.16.840.1.762758.3.579. 2. 1968 Unknown [id number] 2.16.840.1.755903.3.579. 2 1968 Unknown [id number] 2.16.840.1.533249.3.579. 2. 1968 Unknown [id number] 2.16.840.1.044840.3.579. 2.627 1968 Unknown [id number] 2.16.840.1.856315.3.579. 2.7 1968 Unknown [id number] 2.16.840.1.350950.3.579. 2.7 1968 Unknown [id number] 2.16.840.1.655877.3.579. 2. 1968 Unknown [id number] 2.16.840.1.663966.3.579. 2. 1968 Unknown [id number] 2.16.840.1.914936.3.579. 2. 1968 Unknown [id number] 2.16.840.1.903815.3.579. 2.7 1968 Unknown [id number] 2.16.840.1.226810.3.579. 2. 1968 Unknown [id number] 2.16.840.1.549909.3.579. 2.1245 Unknown [id number] 2.16.840.1.046002.3.579. 2.462 Unknown [id number] 2.16.840.1.368723.3.579. 2.462 Unknown [id number] 2.16.840.1.382680.3.579. 2.462 Unknown [id number] 2.16.840.1.035482.3.579. 2.462 Unknown [id number] 2.16.840.1.072981.3.579. 2.462 Social History Date Type Detail Facility Start: 05-17-2019 End: 03-22-2025 Never smoked tobacco (finding) [facility] Comment on above: no smoke exposure Start: 1970 Sex Assigned At Female A [facility] Start: 01-30-2022 End: 02-22-2025 Tobacco use and exposure Smokeless tobacco non-user [employer] Work Phone: Start: 1970 Sex Assigned At Not on file [employer] Work Phone: Start: 01-20-2022 End: 05-30-2023 Exposure to SARS-CoV-2 (event) Not sure [employer] Start: 02-14-2022 End: 10-11-2022 Alcohol intake Lifetime non-drinker (finding) [employer] Work Phone: Start: 02-14-2022 History SDOH Alcohol Frequency 1 [employer] Work Phone: Start: 10-11-2022 End: 02-22-2025 History of Social function [employer] Start: 10-11-2022 End: 02-22-2025 Tobacco use panel [facility] [employer] Within the last year , have you been afraid of your partner or ex-partner? No [employer] Sexual Orientation [facility] susan [facility] Start: 03-03-2019 End: 11-11-2024 Sex Female (finding) [facility] Start: 02-15-2025 End: 02-22-2025 Alcoholic beverage intake Current non-drinker of alcohol (finding) [facility] Start: 08-03-2022 National Score (1-10 0), lower number is lower risk [address] [facility] Tobacco smoking stat us MDIS Tobacco smoking consumption unknown [facility] Work Phone: Medical Equipment Procedure Code Equipment Code Equipment [...] E11.9, # 200 EA, 3 Refill(s), Pharmacy: [facility]/pharmacy #[id number], Diabetes, 164, cm, 12/11/21 15:33:00 EDT, Height, 129.2, kg, 12/11/21 15:33:00 EDT, Dosing Weight Start: 05-14-2022 Unknown Unknown 01/05/19 Unknown Unknown FDA Start: 01-05-2019 FDA Start: 01-05-2019 FDA Start: 01-05-2019 FDA Start: 01-05-2019 FDA Start: 01-05-2019 See Instructions , Use 1 strip twice daily as directed One Touch Ultra Test strips Dx: E11.9, # 200 EA, 3 Refill(s), Pharmacy: [facility]/pharmacy #[id number], Diabetes, 164, cm, 12/11/21 15:33:00 EDT, Height, 129.2, kg, 12/11/21 15:33:00 EDT, Dosing Weight Start: 05-14-2022 Graft Bn Osteoce l Plus 5cc - [id number] - [id number] Start: 06-12-2023 Screw [id number] Start: 06-12-2023 Screw [id number] Start: 06-12-2023 Screw [id number] Start: 06-12-2023 Unknown Unknown 01/05/19 Unknown Unknown FDA Start: 01-05-2019 FDA Start: 01-05-2019 FDA Start: 01-05-2019 FDA Start: 01-05-2019 FDA Start: 01-05-2019 See Instructions , Dispense Contour Test strips, #200, use 1 strip twice daily as directed. Dx: E11.9, # 200 EA, 3 Refill(s), Pharmacy: [facility]/pharmacy #[id number], Diabetes, 164, cm, 09/23/23 11:34:00 EST, Height, 127, kg, 09/23/23 11:34:00 EST, Dosing Weight Start: 10-11-2023 Unknown Unknown 01/05/19 Unknown Unknown FDA Start: 01-05-2019 FDA Start: 01-05-2019 FDA Start: 01-05-2019 FDA Start: 01-05-2019 FDA Start: 01-05-2019 See Instructions , Dispense Contour Test strips, #200, use 1 strip twice daily as directed. Dx: E11.9, # 200 EA, 3 Refill(s), Pharmacy: [facility]/pharmacy #[id number], Diabetes, 164, cm, 09/23/23 11:34:00 EST, Height, 127, kg, 09/23/23 11:34:00 EST, Dosing Weight Start: 10-11-2023 Unknown Unknown 01/05/19 Unknown Unknown FDA Start: 01-05-2019 FDA Start: 01-05-2019 FDA Start: 01-05-2019 FDA Start: 01-05-2019 FDA Start: 01-05-2019 See Instructions , Dispense Contour Test strips, #200, use 1 strip twice daily as directed. Dx: E11.9, # 200 EA, 3 Refill(s), Pharmacy: [facility]/pharmacy #[id number], Diabetes, 164, cm, 09/23/23 11:34:00 EST, Height, 127, kg, 09/23/23 11:34:00 EST, Dosing Weight Start: 10-11-2023 Unknown Unknown 01/05/19 Unknown Unknown FDA Start: 01-05-2019 FDA Start: 01-05-2019 FDA Start: 01-05-2019 FDA Start: 01-05-2019 FDA Start: 01-05-2019 See Instructions , Dispense Contour Test strips, #200, use 1 strip twice daily as directed. Dx: E11.9, # 200 EA, 3 Refill(s), Pharmacy: [facility]/pharmacy #[id number], Diabetes, 164, cm, 09/23/23 11:34:00 EST, Height, 127, kg, 09/23/23 11:34:00 EST, Dosing Weight Start: 10-11-2023 Unknown Unknown 01/05/19 Unknown Unknown FDA Start: 01-05-2019 FDA Start: 01-05-2019 FDA Start: 01-05-2019 FDA Start: 01-05-2019 FDA Start: 01-05-2019 See Instructions , Dispense Contour Test strips, #200, use 1 strip twice daily as directed. Dx: E11.9, # 200 EA, 3 Refill(s), Pharmacy: [facility]/pharmacy #[id number], Diabetes, 164, cm, 09/23/23 11:34:00 EST, Height, 127, kg, 09/23/23 11:34:00 EST, Dosing Weight Start: 10-11-2023 Unknown Unknown 01/05/19 Unknown Unknown FDA Start: 01-05-2019 FDA Start: 01-05-2019 FDA Start: 01-05-2019 FDA Start: 01-05-2019 FDA Start: 01-05-2019 See Instructions , Dispense Contour Test strips, #200, use 1 strip twice daily as directed. Dx: E11.9, # 200 EA, 3 Refill(s), Pharmacy: [facility]/pharmacy #[id number], Diabetes, 164, cm, 09/23/23 11:34:00 EST, Height, 127, kg, 09/23/23 11:34:00 EST, Dosing Weight Start: 10-11-2023 Unknown Unknown 01/05/19 Unknown Unknown FDA Start: 01-05-2019 FDA Start: 01-05-2019 FDA Start: 01-05-2019 FDA Start: 01-05-2019 FDA Start: 01-05-2019 See Instructions , Dispense Contour Test strips, #200, use 1 strip twice daily as directed. Dx: E11.9, # 200 EA, 3 Refill(s), Pharmacy: [facility]/pharmacy #[id number], Diabetes, 164, cm, 09/23/23 11:34:00 EST, Height, 127, kg, 09/23/23 11:34:00 EST, Dosing Weight Start: 10-11-2023 Unknown Unknown 01/05/19 Unknown Unknown FDA Start: 01-05-2019 FDA Start: 01-05-2019 FDA Start: 01-05-2019 FDA Start: 01-05-2019 FDA Start: 01-05-2019 See Instructions , Dispense Contour Test strips, #200, use 1 strip twice daily as directed. Dx: E11.9, # 200 EA, 3 Refill(s), Pharmacy: [facility]/pharmacy #[id number], Diabetes, 164, cm, 09/23/23 11:34:00 EST, Height, 127, kg, 09/23/23 11:34:00 EST, Dosing Weight Start: 10-11-2023 Unknown Unknown 01/05/19 Unknown Unknown FDA Start: 01-05-2019 FDA Start: 01-05-2019 FDA Start: 01-05-2019 FDA Start: 01-05-2019 FDA Start: 01-05-2019 See Instructions , Dispense Contour Test strips, #200, use 1 strip twice daily as directed. Dx: E11.9, # 200 EA, 3 Refill(s), Pharmacy: [facility]/pharmacy #[id number], Diabetes, 165, cm, 03/22/25 11:06:00 EDT, Height, 129.8, kg, 03/22/25 11:06:00 EDT, Dosing Weight Start: 03-22-2025 Unknown Unknown 01/05/19 Unknown Unknown FDA Start: 01-05-2019 FDA Start: 01-05-2019 FDA Start: 01-05-2019 FDA Start: 01-05-2019 FDA Start: 01-05-2019 See Instructions , Dispense Contour Test strips, #200, use 1 strip twice daily as directed. Dx: E11.9, # 200 EA, 3 Refill(s), Pharmacy: [facility]/pharmacy #[id number], Diabetes, 165, cm, 03/22/25 11:06:00 EDT, Height, 129.8, kg, 03/22/25 11:06:00 EDT, Dosing Weight Start: 03-22-2025 Unknown Unknown 01/05/19 Unknown Unknown FDA Start: 01-05-2019 FDA Start: 01-05-2019 FDA Start: 01-05-2019 FDA Start: 01-05-2019 FDA Start: 01-05-2019 See Instructions , Dispense Contour Test strips, #200, use 1 strip twice daily as directed. Dx: E11.9, # 200 EA, 3 Refill(s), Pharmacy: [facility]/pharmacy #[id number], Diabetes, 165, cm, 03/22/25 11:06:00 EDT, Height, 129.8, kg, 03/22/25 11:06:00 EDT, Dosing Weight Start: 03-22-2025 Functional Status Date Assessment Result Facility 08-14-2022 Functional Status Door open, Room check performed [facility] 08-14-2022 Functional Status 3 [facility] 08-14-2022 Functional Status bilateral knee high [facility] 08-14-2022 Functional Status [facility] 08-13-2022 Functional Status [facility] 08-13-2022 Functional Status Demonstrates C orrect Call Light Use Yes [facility] 08-13-2022 Functional Status Dinner Percent 75 [facility] 08-13-2022 Functional Status [facility] 08-13-2022 Functional Status Lunch Percent 50 [facility] 08-13-2022 Functional Status Single level home [facility] 08-13-2022 Functional Status ice on, tension pillow in place [facility] 08-13-2022 Functional Status Maintained [facility] Mental Status Date Assessment Result Facility 08-14-2022 Mental Status Oriented x 4 [facility] 08-14-2022 Mental Status [facility] 08-14-2022 Mental Status [facility] Clinical Notes 04-09-2021 to 04-05-2025 Edinson Sommers RN - 04/05/2025 2:35 PM Donte Lopez MD - 03/22/2025 3:35 PM EDTPatient Edinson Ding RN - 03/22/2025 3:04 PM Edinson Mayo RN - 03/22/2025 3:04 PM EDT Note Date & Type Note Facility 04-05-2025 Note HNO ID: [id number] Author: EDINSON SOMMERS RN Service: ? Author Type: Registered Nurse Type: Progress Notes Filed: 04/05/2025 14:43 Note Text: Excision site to rt upper arm. Well approximated. No sutures at site. No redness swelling, pus or drainage. Denies fever T 97.7. Dr Boyle confirmed lab report of lipoma. Pt informed of same. [facility] 04-05-2025 History of Present illness Narrative Excision site to rt upper arm. Well approximated. No sutures at site. No redness swelling, pus or drainage. Denies fever T 97.7. Dr Boyle confirmed lab report of lipoma. Pt informed of same. [facility]LM documented in this encounter [facility] 03-22-2025 Note HNO ID: [id number] Author: DONTE BOYLE MD Service: ? Author Type: Physician Type: Progress Notes Filed: 03/22/2025 15:37 Note Text: Preoperative diagnosis: 3 cm subcutaneous lesion to right arm Postoperative diagnosis: The same Procedure: Excision of a 3 cm subcutaneous lesion to right arm Surgeon: Carroll Procedure: Right arm posteriorly was sterilely prepped and draped in the usual fashion. 1% lidocaine plain was injected. A 3-1/2 cm incision was made. Dissection was carried down below Angelika's fascia a fatty lesion was identified and was removed in its entirety. I sent the pathology for permanent sectioning. I brought the wound together with deep dermal stitches of 3-0 Vicryl. Steri-Strips were applied. Sterile dressings were applied. Patient tolerated the procedure well. [facility] 03-22-2025 History of Present illness Narrative Preoperative diagnosis: 3 cm subcutaneous lesion to right arm Postoperative diagnosis: The same Procedure: Excision of a 3 cm subcutaneous lesion to right arm Surgeon: Carroll Procedure: Right arm posteriorly was sterilely prepped and draped in the usual fashion. 1% lidocaine plain was injected. A 3-1/2 cm incision was made. Dissection was carried down below Angelika's fascia a fatty lesion was identified and was removed in its entirety. I sent the pathology for permanent sectioning. I brought the wound together with deep dermal stitches of 3-0 Vicryl. Steri-Strips were applied. Sterile dressings were applied. Patient tolerated the procedure well. documented in this encounter [facility] 03-22-2025 Instructions Edinson Sommers RN - 03/22/2025 3:19 PM EDT The following instructions are important for you related to your office visit today with the [facility]. Instructions After SKIN EXCISION-STERI STRIPS You can remove the dressing in two days. If the dressing becomes soaked or had significant drainage, the dressing should be changed. If there is minor bleeding from this skin edge, you should hold pressure on the incision until the bleeding stops. If there is continued bleeding, you should contact our office immediately. You do not need to leave a dressing on the wound after two days. If the wound shows signs of redness, inflammation, or purulent drainage, you should contact our office immediately. You should keep the wound dry for the first two days. After that time, you may wash the wound with gentle soap and water. The wound should not be immersed in a pool, bathtub, or even hot tub. We prefer to check the incision and remove the steristrips in our office when ready. Please make an appointment to return to our office in 2 weeks. Please do not remove the steristrips yourself without approval from our office. If you note any additional difficulties, questions, or concerns, you should contact our office immediately @ [phone] and ask to be transferred to the General Surgery department. documented in this encounter [facility] 03-22-2025 Note HNO ID: [id number] Author: EDINSON SOMMERS RN Service: ? Author Type: Registered Nurse Type: Procedures Filed: 03/22/2025 15:21 Note Text: UNIVERSAL PROTOCOL / SAFETY CHECKLIST Procedure to be Performed: Excision of uncertain Skin right upper arm Sign In: A Moment of CARE was completed. Appropriate PPE (Personal Protective Equipment) worn by all providers involved with the procedure. Special equipment not required. Patient/Surrogate Stated/Verified: Patient name, Date of , Relevant allergies, and The intended procedure Time Out: Relevant labs, photos, and/or imaging studies have been reviewed. Intended patient and procedure match the source document(s) (e.g. consent, HANDP, associated studies [imaging, pathology]) match the intended patient and procedure. Consent obtained and matches the intended procedure. Yes. Correct side/site has been marked and visible. Medications required for this procedure are verified. Fire risk assessed and is not applicable. Implants: are not applicable. Sign Out: Specimens are all correctly labeled and sent. All instruments, equipment, possible retained foreign bodies are accounted for. Yes. The post-procedure plan of care has been communicated to the patient or surrogate. [facility] 03-22-2025 Procedure note UNIVERSAL PROTOCOL / SAFETY CHECKLIST Procedure to be Performed: Excision of uncertain Skin right upper arm Sign In: A Moment of CARE was completed. Appropriate PPE (Personal Protective Equipment) worn by all providers involved with the procedure. Special equipment not required. Patient/Surrogate Stated/Verified: Patient name, Date of , Relevant allergies, and The intended procedure Time Out: Relevant labs, photos, and/or imaging studies have been reviewed. Intended patient and procedure match the source document(s) (e.g. consent, H&P, associated studies [imaging, pathology]) match the intended patient and procedure. Consent obtained and matches the intended procedure. Yes. Correct side/site has been marked and visible. Medications required for this procedure are verified. Fire risk assessed and is not applicable. Implants: are not applicable. Sign Out: Specimens are all correctly labeled and sent. All instruments, equipment, possible retained foreign bodies are accounted for. Yes. The post-procedure plan of care has been communicated to the patient or surrogate. [facility] 03-22-2025 Procedure note UNIVERSAL PROTOCOL / SAFETY CHECKLIST Procedure to be Performed: Excision of uncertain Skin right upper arm Sign In: A Moment of CARE was completed. Appropriate PPE (Personal Protective Equipment) worn by all providers involved with the procedure. Special equipment not required. Patient/Surrogate Stated/Verified: Patient name, Date of , Relevant allergies, and The intended procedure Time Out: Relevant labs, photos, and/or imaging studies have been reviewed. Intended patient and procedure match the source document(s) (e.g. consent, H&P, associated studies [imaging, pathology]) match the intended patient and procedure. Consent obtained and matches the intended procedure. Yes. Correct side/site has been marked and visible. Medications required for this procedure are verified. Fire risk assessed and is not applicable. Implants: are not applicable. Sign Out: Specimens are all correctly labeled and sent. All instruments, equipment, possible retained foreign bodies are accounted for. Yes. The post-procedure plan of care has been communicated to the patient or surrogate. documented in this encounter [facility] 02-23-2025 Note History of Present Illness Shaniqua is a 55-year-old female who is seen at [facility] this morning for reevaluation of her left forearm which was bit by a cat and evaluated in the emergency room on February 13 and treated for cellulitis with Augmentin twice daily x 10 days. She was also given 1 g of Unasyn IV in the emergency room. No x-ray of the forearm done in the emergency room Patient does have history of rheumatoid arthritis as well as type 2 diabetes Patient states that initially her symptoms improved however she has completed her antibiotics and this morning felt the pain and swelling returned to her left forearm. Patient denies any fever chills, fatigue, no redness at this time in the area of the bite Review of Systems See HPI for ROS, all other pertinent ROS reviewed and negative Physical Exam Vitals and Measurements T: 36 C (Oral) HR: 80 RR: 16 BP: 126/82 SpO2: 97% General: Alert, in no acute distress. Skin: Warm and dry. Scattered healing scratches on left forearm. Left volar forearm 3 puncture wounds visible without drainage or surrounding erythema swelling is visible around the area without erythema patient endorses tenderness to palpation of the area. No lymphangitic streaking. No induration. No crepitus. No duskiness. No areas of fluctuance. Social History Smoking Status - 03/06/2016 Never smoker Alcohol - No Risk, 12/01/2021 Use: Never., 12/23/2018 Employment/School Status: Employed., 10/06/2019 Exercise Exercise type: Swimming. Days per week: 1-2 times/week., 10/06/2019 Home/Environment Domestic Concerns: None. 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 Lives In: 1st floor bedroom, 1st floor bathroom. Current Home Treatments Blood Glucose monitoring, CPAP. Professional Skilled Services or Special Community Resources None. Financial concerns: No. Spouse Name: OLIVIA. Marital Status: ., 08/13/2022 Nutrition/Health Type of diet: Regular. Eating Difficulties None. Caffeine intake amount: Tea- 2 servings/day or diet pop., 07/29/2022 Substance Abuse - No Risk, 12/01/2021 Use: Never., 12/23/2018 Tobacco - No Risk, 12/01/2021 Nicotine Use: Never (less than 100 in lifetime)., 02/11/2025 Family History Arthritis: Father. Dementia: Mother. Diabetes mellitus: Father. HTN - Hypertension: Mother. Hypertension: Father. Health Status Family Member(s) Family Member(s) Relationship: Father, Name: Paul Ospina, Age: 84 Years, Cause: Renal failure, diabetes Assessment/Plan 1. Cat bite Previously treated with Augmentin twice daily x 10 days, As well as IV Unasyn Due to patient's risk of diabetes and autoimmune disorders we will extend the Augmentin by 7 days, x-ray ordered of the left forearm to look for any debris or foreign objects following the cat bite ER precautions given to patient Ordered: XR Forearm 2 Views Left, 02/23/25, cat bite, Wt k.6, Yes, [facility], Radiology Outpatient, Future Order, [facility] 2. Type 2 diabetes mellitus with obesity Continue to monitor blood sugar numbers continue with previous treatment, appears stable. 3. Arthritis, rheumatoid Appears stable, continue with hydroxychloroquine 4. Hypertension, essential stable today Orders: amoxicillin(amoxicillin 875 mg oral tablet), 875 mg= 1 tab(s), Oral, BID This note was generated using a voice recognition system. As a result, errors are possible and common, including incorrect words, spellings, grammar, gender, phrases, and punctuation that may be out of context or that were missed in checking this note before saving. I have reviewed the information entered by staff including patient's medications, allergies, past medical history, family history, social history, nursing notes/intake form and vital signs Problem List/Past Medical History Ongoing Apnea, sleep Arthritis, rheumatoid Breast cancer screening by mammogram Cat bite Colon cancer screening Fatigue Hypertension, essential Hypothyroid Morbid obesity with BMI of 45.0-49.9, adult Obstructive sleep apnea PCO (polycystic ovaries) Persistent insomnia Primary osteoarthritis of left knee Restless legs syndrome Screening for heart disease Type 2 diabetes mellitus with obesity Historical Bronchitis COVID-19 viremia Discharge from left nipple Exposure to COVID-19 virus Rash UTI symptoms Procedure/Surgical History Arthroplasty of knee: 08/13/22 Arthroplasty of knee using cement: 01/05/19 Ultrasound: 08/14/18 Mammogram: 08/14/18 Colonoscopy: 2008 Thyroid: 2006 Ankle Arthroscopy of knee Endometrial ablation Nasal septoplasty section History of partial thyroidectomy Bilateral tubal ligation Cholecystectomy Allergies Grass (Moderate) Unknown Feathers Unknown flu vaccines sulfa drug Syncope, Rash Medications What How Much When Why Instructions Last Dose New amoxicillin (amoxicillin 875 mg oral tablet) 1 tab(s) by mouth Two (2) times a day Duration: 7 Days Pickup at [facility]/pharmacy #[id number] Unchanged acetaminophen (Tylenol) 1,000 Milligram by mouth Every 8 hours not to exceed 3000 mg/ day Unchanged DME (Blood Glucose Test Machine) See instructions Diabetes Dispense 1 Contour glucometer, UAD twice daily to test blood sugar. Dx: E11.9 Unchanged DME (Blood Glucose Test Strips) See instructions Diabetes Dispense Contour Test strips, #200, use 1 strip twice daily as directed. Dx: E11.9 Unchanged DULoxetine (Cymbalta 60 mg oral delayed release capsule) 1 cap by mouth Daily at bedtime Unchanged ergocalciferol (ergocalciferol 50,000 intl units (1.25 mg) oral capsule) 1 cap by mouth Every week Unchanged hydroxychloroquine (hydroxychloroquine 200 mg oral tablet) [...] Once a day (in the evening) Unchanged nateglinide (nateglinide 120 mg oral tablet) 1 tab(s) by mouth Three (3) times a day before meals Unchanged semaglutide (Rybelsus 7 mg oral tablet) 1 tab(s) by mouth Once a day take at least 30 minutes before first food, beverage, or other oral meds Unchanged tofacitinib (Xeljanz XR 11 mg oral tablet, extended release) 1 tab(s) by mouth Once a day Unchanged triamcinolone topical (triamcinolone 0.1% topical cream) 1 application Topical Two (2) times a day as needed for hives Pharmacy Information [facility]/pharmacy #[id number]: [address], [place] [id number] [phone] Digitally Signed by HERBIE JAQUEZ on 02/23/2025 10:41 AM [facility] 02-23-2025 Note HNO ID: [id number] Author: DONTE BOYLE MD Service: ? Author Type: Physician Type: Progress Notes Filed: 02/23/2025 07:35 Note Text: HISTORY AND PHYSICAL Pravin Melo 1970 REFERRING PHYSICIAN: No ref. provider found CHIEF COMPLAINT: Consult (Lipoma right upper back) HPI: Pravin Melo is a 55-year-old female presenting for evaluation of a lipoma. Pravin reports having a lipoma for several years, which has recently become bothersome. Approximately 1.5 years ago, she considered having it removed but did not follow through with scheduling an appointment. The lipoma causes discomfort, particularly when swimming, leading to an aching sensation. She inquired about removal during a recent visit with another clinician, who advised that the lipoma was too large for simple excision and recommended a general surgery consultation. 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 Right PCOS (polycystic ovarian syndrome) Sleep apnea Thyroid nodule PAST SURGICAL HISTORY Procedure Laterality Date ARTHROSCOPY KNEE DIAGNOSTIC W/WO SYNOVIAL BX SPX 2007 Arthroscopy, knee DELIVERY ONLY 1988 , low transverse DELIVERY ONLY 1987 , low transverse DILATION AND CURETTAGE DXAND/THER NONOBSTETRIC 1991,2006 Dilation AND curettage LAPS ABD PRTMANDOMENTUM DX W/WO SPEC BR/WA SPX 2000 Laparoscopy LAPS SURG CHOLECYSTECTOMY W/CHOLANGIOGRAPHY 10/27/09 LIG/TRNSXJ FLP TUBE ABDL/VAG APPR UNI/BI 1992 Tubal ligation PAST SURGICAL HISTORY OF 2006 uterine ablation Current Outpatient Medications Medication Sig hydrOXYchloroQUINE (PLAQUENIL) 200 mg tablet Take 200 mg by mouth two times a day. RYBELSUS 7 mg tablet Take 7 mg by mouth daily before breakfast. FARXIGA 10 mg tablet Take 1 tablet by mouth once daily. XELJANZ XR 11 mg tablet, extended release Take 11 mg by mouth once daily. meloxicam (MOBIC) 15 mg tablet Take 1 tablet by mouth once daily. DULoxetine (CYMBALTA) 60 mg capsule Take 60 mg by mouth daily at bedtime. levothyroxine sodium(SYNTHROID 137 MCG TAB) Take one(1) tablet daily. LISINOPRIL 10 MG TAB Take one(1) tablet daily. montelukast sodium(SINGULAIR 10 MG TAB) Take one(1) tablet daily at bedtime. (Patient not taking: Reported on 02/22/2025) esomeprazole mag trihydrate(NEXIUM 40 MG CAP) Take one(1) capsule daily. (Patient not taking: Reported on 02/22/2025) brompheniramine maleate(LODRANE 24 EXTENDED RELEASE 12 MG 24 HR CAP) 1-2 tabs in evening (Patient not taking: Reported on 02/22/2025) spironolact/hydrochlorothiazid(AL DACTAZIDE 50 MG-50 MG TAB) Take one(1) tablet daily. in evening (Patient not taking: Reported on 02/22/2025) No current facility-administered medications for this visit. ALLERGIES: Sulfa (Sulfonamide Antibiotics) PERSONAL HISTORY: Social History Tobacco Use Smoking status: Never Smokeless tobacco: Never Vaping Use Vaping status: Never Used Substance Use Topics Alcohol use: No Drug use: No FAMILY HISTORY: FAMILY HISTORY Problem Relation Age of Onset Hypertension Mother Melanoma Father Diabetes Father Hypertension Father Breast Cancer Paternal Aunt REVIEW OF SYMPTOMS: The review of systems data was entered by the nurse and reviewed by me There are no exam notes on file for this visit. PHYSICAL EXAMINATION: General: The patient is 55 year old female, well nourished, well hydrated in no acute distress. The patient is oriented to time, place, and person. VITALS: Blood pressure 136/84, pulse 107, temperature 36.2 ?C (97.1 ?F), height 165.1 cm (5' 5), weight 130 kg (286 lb 11.2 oz), SpO2 97%. HEENT: Normal cephalic, ataumatic, pupils are equally round, sclera are anicteric, mucous membranes are moist, oropharynx is clear. Neck has no masses, asymmetry or lymphadenopathy. Thyroid is unremarkable. Respiratory: Clear to auscultation and percussion. Normal respiratory excursion and pattern. Cardiac: Examination is regular rate and rhythm. Abdominal exam: Soft, nontender, with no palpable masses. No hepatosplenomegaly. No palpable hernias. Rectal exam: exam deferred Extremities: no clubbing, cyanosis or edema. No adenopathy. Other: Approximately a 2 cm subcutaneous fatty lesion in the right upper arm. Nontender to touch. LABORATORY VALUES: As Noted RADIOLOGIC STUDIES: As Noted Assessment IMPRESSION: Benign lipomatous neoplasm of skin and subcutaneous tissue PLAN: 1. Benign lipomatous neoplasm of skin and subcutaneous tissue (D17.30) Subcutaneous lipoma present for several years, causing discomfort during swimming. Patient previously considered removal but did not schedule an appointment. - Scheduled in-office exci (more content not included)... [facility] 02-23-2025 History of Present illness Narrative HISTORY AND PHYSICAL Pravin Melo 1970 REFERRING PHYSICIAN: No ref. provider found CHIEF COMPLAINT: Consult (Lipoma right upper back) HPI: Pravin Melo is a 55-year-old female presenting for evaluation of a lipoma. Pravin reports having a lipoma for several years, which has recently become bothersome. Approximately 1.5 years ago, she considered having it removed but did not follow through with scheduling an appointment. The lipoma causes discomfort, particularly when swimming, leading to an aching sensation. She inquired about removal during a recent visit with another clinician, who advised that the lipoma was too large for simple excision and recommended a general surgery consultation. 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 Right PCOS (polycystic ovarian syndrome) Sleep apnea Thyroid nodule PAST SURGICAL HISTORY Procedure Laterality Date ARTHROSCOPY KNEE DIAGNOSTIC W/WO SYNOVIAL BX SPX 2007 Arthroscopy, knee DELIVERY ONLY 1989 , low transverse DELIVERY ONLY 1987 , low transverse DILATION & CURETTAGE DX&/THER NONOBSTETRIC 1991,2006 Dilation & curettage LAPS ABD PRTM&OMENTUM DX W/WO SPEC BR/WA SPX 2000 Laparoscopy LAPS SURG CHOLECYSTECTOMY W/CHOLANGIOGRAPHY 10/27/09 LIG/TRNSXJ FLP TUBE ABDL/VAG APPR UNI/BI 1992 Tubal ligation PAST SURGICAL HISTORY OF 2006 uterine ablation Current Outpatient Medications Medication Sig hydrOXYchloroQUINE (PLAQUENIL) 200 mg tablet Take 200 mg by mouth two times a day. RYBELSUS 7 mg tablet Take 7 mg by mouth daily before breakfast. FARXIGA 10 mg tablet Take 1 tablet by mouth once daily. XELJANZ XR 11 mg tablet, extended release Take 11 mg by mouth once daily. meloxicam (MOBIC) 15 mg tablet Take 1 tablet by mouth once daily. DULoxetine (CYMBALTA) 60 mg capsule Take 60 mg by mouth daily at bedtime. levothyroxine sodium(SYNTHROID 137 MCG TAB) Take one(1) tablet daily. LISINOPRIL 10 MG TAB Take one(1) tablet daily. montelukast sodium(SINGULAIR 10 MG TAB) Take one(1) tablet daily at bedtime. (Patient not taking: Reported on 02/22/2025) esomeprazole mag trihydrate(NEXIUM 40 MG CAP) Take one(1) capsule daily. (Patient not taking: Reported on 02/22/2025) brompheniramine maleate(LODRANE 24 EXTENDED RELEASE 12 MG 24 HR CAP) 1-2 tabs in evening (Patient not taking: Reported on 02/22/2025) spironolact/hydrochlorothiazid(AL DACTAZIDE 50 MG-50 MG TAB) Take one(1) tablet daily. in evening (Patient not taking: Reported on 02/22/2025) No current facility-administered medications for this visit. ALLERGIES: Sulfa (Sulfonamide Antibiotics) PERSONAL HISTORY: Social History Tobacco Use Smoking status: Never Smokeless tobacco: Never Vaping Use Vaping status: Never Used Substance Use Topics Alcohol use: No Drug use: No FAMILY HISTORY: FAMILY HISTORY Problem Relation Age of Onset Hypertension Mother Melanoma Father Diabetes Father Hypertension Father Breast Cancer Paternal Aunt REVIEW OF SYMPTOMS: The review of systems data was entered by the nurse and reviewed by me There are no exam notes on file for this visit. PHYSICAL EXAMINATION: General: The patient is 55 year old female, well nourished, well hydrated in no acute distress. The patient is oriented to time, place, and person. VITALS: Blood pressure 136/84, pulse 107, temperature 36.2 C (97.1 F), height 165.1 cm (5' 5), weight 130 kg (286 lb 11.2 oz), SpO2 97%. HEENT: Normal cephalic, ataumatic, pupils are equally round, sclera are anicteric, mucous membranes are moist, oropharynx is clear. Neck has no masses, asymmetry or lymphadenopathy. Thyroid is unremarkable. Respiratory: Clear to auscultation and percussion. Normal respiratory excursion and pattern. Cardiac: Examination is regular rate and rhythm. Abdominal exam: Soft, nontender, with no palpable masses. No hepatosplenomegaly. No palpable hernias. Rectal exam: exam deferred Extremities: no clubbing, cyanosis or edema. No adenopathy. Other: Approximately a 2 cm subcutaneous fatty lesion in the right upper arm. Nontender to touch. LABORATORY VALUES: As Noted RADIOLOGIC STUDIES: As Noted Assessment IMPRESSION: Benign lipomatous neoplasm of skin and subcutaneous tissue PLAN: 1. Benign lipomatous neoplasm of skin and subcutaneous tissue (D17.30) Subcutaneous lipoma present for several years, causing discomfort during swimming. Patient previously considered removal but did not schedule an appointment. - Scheduled in-office excision of the most symptomatic lipoma. - Completed consent form for the procedure. - Patient instructed to schedule the surgery with the assistant front end manager. Diagnoses: (D17.30) Benign lipomatous neoplasm of skin and subcutaneous tissue Return to Clinic: The patient is instructed to follow-up with me 1 week post operatively. Donte Boyle III, MD documented in this encounter [facility] 02-18-2025 Note . MICRO - Microbiology PROCEDURE: Blood Culture (bacterial) [*1] SOURCE: Blood BODY SITE: COLLECTED DATE/TIME: 02/13/2025 09:53 EDT RECEIVED DATE/TIME: 02/13/2025 12:27 EDT START DATE/TIME: 02/13/2025 12:27 EDT FREE TEXT SOURCE: FINAL REPORTS Final Report [] Verified Date/Time/Personnel: 02/18/2025 12:59 EDT Blood Culture: No Growth at 5 days. PRELIMINARY REPORTS Preliminary Report [] Verified Date/Time/Personnel: 02/13/2025 12:59 EDT Culture has been received in lab and is no growth to date. Routine cultures are held for 5 days. Performing Locations *1: This test was performed at: [address] 02-18-2025 Note . MICRO - Microbiology PROCEDURE: Blood Culture (bacterial) [*1] SOURCE: Blood BODY SITE: COLLECTED DATE/TIME: 02/13/2025 09:53 EDT RECEIVED DATE/TIME: 02/13/2025 12:27 EDT START DATE/TIME: 02/13/2025 12:27 EDT FREE TEXT SOURCE: FINAL REPORTS Final Report [] Verified Date/Time/Personnel: 02/18/2025 12:59 EDT Blood Culture: No Growth at 5 days. PRELIMINARY REPORTS Preliminary Report [] Verified Date/Time/Personnel: 02/13/2025 12:59 EDT Culture has been received in lab and is no growth to date. Routine cultures are held for 5 days. Performing Locations *1: This test was performed at: [address] 02-13-2025 Hospital Discharge instructions Patient Education 02/13/2025 10:31:24 Cellulitis Skin Infection Cellulitis Cellulitis is an infection of the deep layers of skin. A break in the skin, such as a cut or scratch, can let bacteria under the skin. If the bacteria get to deep layers of the skin, it can be serious. If not treated, cellulitis can get into the bloodstream and lymph nodes. The infection can then spread throughout the body. This causes serious illness. Cellulitis causes the affected skin to become red, swollen, warm, and sore. The reddened areas have a visible border. An open sore may leak fluid (pus). You may have a fever, chills, and pain. Cellulitis is treated with antibiotics taken for 7 to 10 days. An open sore may be cleaned and covered with cool wet gauze. Symptoms should get better 1 to 2 days after treatment is started. Make sure to take all the antibiotics for the full number of days until they are gone. Keep taking the medicine even if your symptoms go away. Home care Follow these tips: Limit the use of the part of your body with cellulitis. If the infection is on your leg, keep your leg raised while sitting. This will help to reduce swelling. Take all of the antibiotic medicine exactly as directed until it is gone. Do not miss any doses, especially during the first 7 days. Don t stop taking the medicine when your symptoms get better. Keep the affected area clean and dry. Wash your hands with soap and warm water before and after touching your skin. Anyone else who touches your skin should also wash his or her hands. Don't share towels. Follow-up care Follow up with your healthcare provider, or as advised. If your infection does not go away on the first antibiotic, your healthcare provider will prescribe a different one. When to seek medical advice Call your healthcare provider right away if any of these occur: Red areas that spread Swelling or pain that gets worse Fluid leaking from the skin (pus) Fever higher of 100.4 F (38.0 C) or higher after 2 days on antibiotics [id number] [employer]. [address] [place] [address], [place] [address]. All rights reserved. This information is not intended as a substitute for professional medical care. Always follow your healthcare professional's instructions. Follow Up Care 02/13/2025 09:30:45 With:Go to emergency room if symptoms worsen Address:Unknown When:2-4 days With:HERBIE JAQUEZ Address: [address] [place] [address] [place] [phone] When:2-4 days [facility] 02-13-2025 Emergency department Discharge summary Discharge Instructions Thank you for allowing [facility] to assist you with your healthcare needs. The following is important discharge information regarding your hospital visit. Diagnosis from Today's Visit Cat bite of forearm Cellulitis of forearm, left What to Do Next Instructions from Your Care Team Please monitor the area and your symptoms closely. If the redness worsens or you notice other skin changes to the area, you develop worsened systemic infectious symptoms such as persistent fevers over 100.4 Fahrenheit or have worsening chills or nausea or vomiting or have any increased pain in the area please return to the emergency department for further evaluation and management otherwise follow-up with PCP for repeat assessment in the next week. Complete course of antibiotics prescribed by your PCP. Discharge Return to Work, School, or Sports (Return to Work, School, or Sports) - Ordered -- 02/14/25, May return to: work, 02/13/25 10:53:00 EDT Post Acute Orders No qualifying data available. You Need to Schedule the Following Appointments Follow Up with Go to emergency room if symptoms worsen When:Within 2-4 days Follow Up with HERBIE JAQUEZ When:Within 2-4 days Where:[address] [place] [phone] Allergies Grass (Moderate) Unknown Feathers Unknown flu vaccines sulfa drug Syncope, Rash Medications Please ask your primary doctor or pharmacist before taking any other medication not listed, including over the counter drugs, herbal medications, vitamins and or supplements as they may interact with your home medications. What How Much When Why Instructions Last Dose Unchanged acetaminophen (Tylenol) 1,000 Milligram by mouth Every 8 hours not to exceed 3000 mg/ day Unchanged amoxicillin-clavulanate (amoxicillin-clavulanate 875 mg-125 mg oral tablet) 1 tab(s) by mouth Every 12 hours Cat bite of left forearm Cat scratch of left forearm Duration: 10 Days Unchanged DME (Blood Glucose Test Machine) See instructions Diabetes Dispense 1 Contour glucometer, UAD twice daily to test blood sugar. Dx: E11.9 Unchanged DME (Blood Glucose Test Strips) See instructions Diabetes Dispense Contour Test strips, #200, use 1 strip twice daily as directed. Dx: E11.9 Unchanged DULoxetine (Cymbalta 60 mg oral delayed release capsule) 1 cap by mouth Daily at bedtime Unchanged ergocalciferol (ergocalciferol 50,000 intl units (1.25 mg) oral capsule) 1 cap by mouth Every week Unchanged hydroxychloroquine (hydroxychloroquine 200 mg oral tablet) [...] Once a day (in the evening) Unchanged mupirocin topical (mupirocin 2% topical ointment) 1 application Topical Two (2) times a day Cat bite of left forearm Cat scratch of left forearm Duration: 10 Days apply a thin film Unchanged nateglinide (nateglinide 120 mg oral tablet) 1 tab(s) by mouth Three (3) times a day before meals Unchanged semaglutide (Rybelsus 7 mg oral tablet) 1 tab(s) by mouth Once a day take at least 30 minutes before first food, beverage, or other oral meds Unchanged tofacitinib (Xeljanz XR 11 mg oral tablet, extended release) 1 tab(s) by mouth Once a day Unchanged triamcinolone topical (triamcinolone 0.1% topical cream) 1 application Topical Two (2) times a day as needed for hives Please take this list to your next doctor s visit. Bring all medications you take, including over the counter medications, herbals and other supplements with you to your doctor s visit. Patients and families are reminded to discard old lists and to update any records with all medication providers or retail pharmacies. Education Materials Cellulitis Cellulitis is an infection of the deep layers of skin. A break in the skin, such as a cut or scratch, can let bacteria under the skin. If the bacteria get to deep layers of the skin, it can be serious. If not treated, cellulitis can get into the bloodstream and lymph nodes. The infection can then spread throughout the body. This causes serious illness. Cellulitis causes the affected skin to become red, swollen, warm, and sore. The reddened areas have a visible border. An open sore may leak fluid (pus). You may have a fever, chills, and pain. Cellulitis is treated with antibiotics taken for 7 to 10 days. An open sore may be cleaned and covered with cool wet gauze. Symptoms should get better 1 to 2 days after treatment is started. Make sure to take all the antibiotics for the full number of days until they are gone. Keep taking the medicine even if your symptoms go away. Home care Follow these tips: Limit the use of the part of your body with cellulitis. If the infection is on your leg, keep your leg raised while sitting. This will help to reduce swelling. Take all of the antibiotic medicine exactly as directed until it is gone. Do not miss any doses, especially during the first 7 days. Don t stop taking the medicine when your symptoms get better. Keep the affected area clean and dry. Wash your hands with soap and warm water before and after touching your skin. Anyone else who touches your skin should also wash his or her hands. Don't share towels. Follow-up care Follow up with your healthcare provider, or as advised. If your infection does not go away on the first antibiotic, your healthcare provider will prescribe a different one. When to seek medical advice Call your healthcare provider right away if any of these occur: Red areas that spread Swelling or pain that gets worse Fluid leaking from the skin (pus) Fever higher of 100.4 F (38.0 C) or higher after 2 days on antibiotics [phone] [employer]. [address] [place] [address]. All rights reserved. This information is not intended as a substitute for professional medical care. Always follow your healthcare professional's instructions. Additional Information VACCINATE! IT SAVES LIVES! Members of the community who have not yet received the COVID-19 vaccine and would like to receive it can visit one of [facility] vaccine clinics. There are many vaccine clinic locations within the [facility]. For locations and available times, please visit [email or web address] It is important to note that some COVID mobile vaccine clinics are held outdoors and may be canceled in rainy or stormy conditions. To learn more about pediatric vaccinations (ages 5-11), we invite you to visit the [facility] webpage. [email or web address] To learn more about the COVID-19 vaccine, we invite you to visit the CDC website for a list of frequently asked questions. https://www.cdc.gov/coronavirus/2 019-ncov/vaccines/faq.html [facility] Patient Portal Access Instructions: Stay connected with your healthcare team and access your personal medical information anytime with the [facility] Patient Portal. If you would like a full copy of your medical records please contact the [facility] Medical Records Department Friday through Friday between 8a.m. and 4:30p.m. Please follow the directions below to access the portal: 1.Access the email account you provided upon registration to the [facility].2.Look for an invitation email from [facility].3.Open the email and access the invitation link: Accept Invitation to [facility]4.Fill in the required torres to create your account. Sign into [email or web address] with your username and password that you created in the above steps to stay up to date. You can then view a summary of results, a summary of your visits, and the ability to download your summaries to your computer or send the information securely to a physician. Remember that your healthcare information is confidential, so carefully consider who you will allow to register on the [facility] Patient Portal for access to your information. You can also access the [facility] Patient Portal on the [employer]. Simply click on Health Records under Health Data and then click on the [email or web address] logo. HOW TO SAFELY DISPOSE OF PRESCRIPTION MEDICATIONS Please use one of the following methods to safely dispose of your unused medications. 1.Use a drug disposal kit: the drug disposal pouch allows you to safely discard your old and unused drugs. Ask your nurse to give you one when you are discharged.2.Visit a local take-back location: Many local pharmacies and police departments have programs that collect old and unwanted prescription drugs. Call your local pharmacy or go to http://[employer]Domain Media/4M9Eq9v to find one close to you.3.Make use of household items: Use cat litter or old coffee grounds to dispose medications if other options are not available. Mix your drugs with these household products, seal them in an airtight container and throw it into the garbage. Call [facility]: [phone] to be sure your drugs can be disposed of in this way. Some medicines may require a different approach.4.Never flush your medications down the toilet. IF YOU HAVE BEEN PRESCRIBED AN OPIOIDS FOR PAIN If you have been prescribed an opioid (such as hydrocodone, oxycodone or morphine), it is critical to understand the possible side effects and risks of opioid pain medications. Even when taken as directed, opioids can have several side effects including: Tolerance, meaning you might need to take more of a medication for the same pain relief. Nausea, vomiting and/or constipation. Sleepiness, dizziness, dry mouth, confusion, depression or itching. Physical dependence, meaning you have withdrawal symptoms when a medication is stopped ? this can develop within a few days. KNOW YOUR RESPONSIBILITIES It is important to know exactly how much and how often to take the opioid pain medications you are prescribed. Never take opioids in higher amounts or more often than prescribed. Do not combine opioids with alcohol or other drugs that cause drowsiness, such as benzodiazepines, also known as benzos, including diazepam and alprazolam, muscle relaxants or sleep aids. Never sell or share prescription opioids. This is illegal. Store opioids in a secure place and out of reach of others (including children, family, friends and visitors). The last page(s) of this document has been signed and retained as a CHART COPY Signatures Patient Education Materials Cellulitis Skin Infection Medication Leaflets My discharge plan and instructions have been reviewed and explained to me and I,PRAVIN MELO understand my current condition and have read and understand these discharge instructions. I have received a written copy of the plan/instructions. If I have questions, I am aware that I should contact my doctor. Patient/Mother Baby Rn Signature: Date/Time: Relationship to Patient: ____ Witness Name/Signature: Date/Time: [facility] 10-29-2024 Evaluation note Diagnosis Onset Date Resolution Acute sinusitis acute October 29, 2024 10:59am Contact with or suspected exposure to other viral communicable disease acute October 292024 10:59am [facility] Work Phone: 1(879) 641-954112-21-2024 Note. MICRO - Microbiology PROCEDURE: Urine Culture [*1] SOURCE: Urine BODY SITE: COLLECTED DATE/TIME: 08/27/2024 11:31 EST RECEIVED DATE/TIME: 08/27/2024 15:41 EST START DATE/TIME: 08/27/2024 15:41 EST FREE TEXT SOURCE: FINAL REPORTS Final Report [] Verified Date/Time/Personnel: 08/28/2024 14:15 EST 10,000 - 50,000 cfu/ml Multiple bacterial morphotypes present. Probable Contamination. Suggest recollection if clinically indicated. Performing Locations *1: This test was performed at: [address], [address] [place], [place] [id number] Note. MICRO - Microbiology PROCEDURE: Urine Culture [*1] SOURCE: Urine, Clean Catch BODY SITE: COLLECTED DATE/TIME: 03/16/2024 15:21 EDT RECEIVED DATE/TIME: 03/17/2024 13:59 EDT START DATE/TIME: 03/17/2024 13:59 EDT FREE TEXT SOURCE: FINAL REPORTS Final Report [] Verified Date/Time/Personnel: 03/18/2024 14:14 EDT 10,000 - 50,000 cfu/ml Mixed growth consistent with normal urogenital joyce. Performing Locations *1: This test was performed at: [address], [address] [place] [address] ([place])10-29-2023 History of Present illness Narrative* Simone Amin MD - 10/29/2023 1:00 PM EST Images from the original note were not included. [facility] [address] [place] [address] [place] [phone] Dept: [phone] Dept Pravin Melo 1970 [id number] 10/29/2023 HISTORY OF PRESENT ILLNESS: Pravin is here for her 4.5 month(s) postoperative visit 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 Pravin reports that her pain has decreased overall since the surgery/last visit- she reports some increase in pain the last few days due to overdoing it Pravin reports that her swelling has been minimal Pravin had been instructed to be weight bearing as tolerated on the left lower extremity. Pravin has been compliant with her weight bearing restrictions Pravin has been working on her home exercise program and it is going well- has been swimming as well Pravin denies fevers and chills and [...] and oriented x 3. The patient appears wellnourished. The patient is able to verbalize normally [...] to actively move the ankle/foot/toes The medial midfoot/hindfoot and lateral midfoot/hindfoot incisions are healed and benign Tenderness: no areas of tenderness on exam Gait: Ambulates with a mild limp RADIOGRAPHIC INTERPRETATION: 3 weight bearing views of the left foot were obtained and the following is my interpretation of thefindings present of the X-rays: Interval bone healing is noted at the subtalar and calcaneocuboid fusion sites with intact hardware. 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 The 2 fully threaded screws crossing the fusion site are intact. REVIEW OF RELATED PREVIOUS DOCUMENTATION: No documents [...] plan moving forward. Pravin is doing well clinically and I explained that the subtalar and calcaneocuboid joint fusionsare likely stabilizing the nonunion of the talonavicular joint and I do not think that any active treatment for the talonavicular joint is necessary unless Pravin were to become symptomatic. She agrees with that plan. She will continue to increase her activity level based on her symptoms. If she has any problems or concerns in the future she was instructed to call the office. Follow up if symptoms worsen or fail to improve, for call our office with any questions at [phone]. Electronically signed by Simone Amin MD [facility] Department of Orthopedic surgery 10/29/2023 1:40 PM Voice recognition was used for portions of this note and although it was reviewed prior to signing some incorrect words or phrases could be present. documented in this [facility]12-27-2023 History of Present illness Narrative* Simone Amin MD - 09/03/2023 1:00 PM EST [facility] [address] [place] [address] [place] [phone] Dept: [phone] Dept Pravin Melo 1970 [id number] 09/03/2023 HISTORY OF PRESENT ILLNESS: Pravin is [...] and oriented x 3. The patient appears wellnourished. The patient is able to verbalize normally [...] and the following is my interpretation of thefindings present of the X-rays: Interval bone healing [...] shoe without pain. I instructed Pravin to putthe aircast boot back on if she starts to have increasing pain or swelling that is uncomfortable. Iwant Pravin to start with a good stable [...] Imaging. Electronically signed by Simone Amin MD [facility] Department of Orthopedic surgery 09/03/2023 1:44 PM Voice recognition was used for portions of this note and although it was reviewed prior to signing some incorrect words or phrases could be present. documented in this [facility]11-15-2023 History of Present illness Narrative* Simone Amin MD - 07/23/2023 1:30 PM EST Images from the original note were not included. [facility] [address] [place] [address] [place] [phone] Dept: [phone] Dept Pravin Melo 1970 [id number] 07/23/2023 HISTORY OF PRESENT ILLNESS: Pravin is here for her postoperative visit s/p #1 Left Talonavicular joint fusion, #2 removal deepimplant left foot, DOS 06/12/23 Pravin reports that [...] and oriented x 3. The patient appears wellnourished. The patient is able to verbalize normally [...] weeks. Pravin can continue to remove her bootfor sleep, for bathing, anytime she is sitting [...] weeks. Electronically signed by Simone Amin MD [facility] Department of Orthopedic surgery 07/23/2023 1:11 PM Voice recognition was used for portions of this note and although it was reviewed prior to signing some incorrect words or phrases could be present. documented in this [facility]10-18-2023 History of Present illness Narrative* DOMINICK Potter - 06/25/2023 1:30 PM EDT Images from the original note were not included. [facility] [address] [place] [phone] Dept: [phone] Dept Pravin Melo 1970 [id number] 06/25/2023 HISTORY OF PRESENT ILLNESS: Pravin is [...] been compliant with her weight bearing restrictions Pravni denies fevers and chills and has not [...] and oriented x 3. The patient appears wellnourished. The patient is able to verbalize normally [...] forward. Pravin will be seen back in 4weeks. Elevation Instructions: Pravin can have the foot/ankle [...] boot is taken off the air needs anaya removed from the boot so that when Pravin puts it on the next time, her foot/ankle will fit properly. We explained that the foot and ankle should fit securely in the boot only on correctly and filled with enough air to make it snug but not tight. If Pravin has pain caused by the boot or if shehas any skin irritation from the boot, she was instructed to remove the boot and call the office for instructions. Pravin can take the boot off for sleep, for bathing and to work on ROM of herankle,foot and toes several times a day. Pravin can remove her boot for sleep, for bathing, anytime they are sitting or laying down and forROM exercises which were discussed and demonstrated today. [...] Imaging, Post-Op. Electronically signed by DOMINICK Potter [facility] Department of Orthopedic surgery 06/25/2023 1:40 PM Voice recognition was used for portions of this note and although it was reviewed prior to signing some incorrect words or phrases could be present. documented in this [facility]10-05-2023 NotePatient: Pravin Melo Procedure Summary Date: 06/12/23 Room / Location: [address] Operating Room Anesthesia Start: 1132 Anesthesia [...] discharged once all PACU criteria has been met.[facility] [id number] NotePatient: Pravin Melo Procedure Summary Date: 06/12/23 Room / Location: [address] Operating Room Anesthesia Start: 1132 Anesthesia [...] start time until discharged from PACU ([id number]) [facility] Anesthesiology Smoking Abstinence The patient is [...] Allowed opportunity for questions and acknowledgement of understanding.[facility]10-05-2023 Miscellaneous Notes* Perioperative Nursing Note - Angelique Cameorn RN - 06/12/2023 3:45 PM EDT Patient assisted to/from BR via wheelchair. Patient able to dress self with help from . Discharge instructions reviewed with patient and , both verbalize understanding. No additional questions/concerns or complaints voiced. Patient continues use of incentive spirometer. O2 sats on room air remain above 92%. Patient denies SOB. +occ , strong cough. Patient out to car via wheelchair free of injury. * Perioperative Nursing Note - Angelique Cameron RN - 06/12/2023 3:15 PM EDT Patient given incentive spirometer and instructed on use. Patient able to give correct return demonstration. +deep breathing and coughing exercises performed. Patient denies SOB/CP. * Perioperative Nursing Note - Sariah Pineda RN - 06/12/2023 2:59 PM EDT Report given to Angelique Yin * Perioperative Nursing Note - Sariah Pineda RN - 06/12/2023 2:28 PM EDT Pt MBS 184 * Perioperative Nursing Note - Angelique Cameron RN - 06/12/2023 2:22 PM EDT Report off to Charles Rolle * Perioperative Nursing Note - Angelique Cameron RN - 06/12/2023 2:00 PM EDT Received patient from OR to PACU with SIGNALER. Patient is sedated on simple mask @6l. No respiratory distress noted. Patient is waking up, will respond to verbal stimuli. Monitor on, Rn bedside. Safety maintained. 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 [...] operative procedure the patient's head neck and airwaywere protected by the anesthesia staff. A tourniquet [...] was performed by myself, the circulating room nurseand the anesthesia staff. The patient's ASA was verified by the nurse glass block bender and the anesthesiastaff. Fire risk was assessed. An Esmarch bandage was then used to exsanguinate the limb. The tourniquet was then inflated. A longitudinal incision was placed midway between the anterior tibial tendon and the posterior tibial tendon overlying the talonavicular joint medially over the original medial incision site. The skin and subcutaneous tissues were divided any crossing vessels from the saphenous system were cauterized. Thewound was deepened down to level of the talonavicular joint. The nonunited joint space was identified. The two medial screws were found and removed. A lamina dandy tender was then placed within the TN joint and distraction was applied. The joint opened without difficulty. A culture was then obtained from the nonunion site. No signs of infection were present. Both opposing bone surfaces were prepped for fusion, removing all fibrous tissue, fully exposing bone on both side and then scaling both opposing bone surfaces with a small Mccook osteotome. The joint was then thoroughly irrigated [...] was achieved. Images were obtained in multiple planesof the foot and ankle to ensure proper [...] copious amounts of sterile saline. The subcutaneous tissueswere then closed utilizing 2-0 Vicryl. The skin [...] the left foot at the 6 week post- op visit documented in this [facility]10-05-2023 Note* Perioperative Nursing Note - Angelique Cameron RN - 06/12/2023 3:45 PM EDT Patient assisted to/from BR via wheelchair. Patient able to dress self with help from . Discharge instructions reviewed with patient and , both verbalize understanding. No additional questions/concerns or complaints voiced. Patient continues use of incentive spirometer. O2 sats on room air remain above 92%. Patient denies SOB. +occ , strong cough. Patient out to car via wheelchair free of injury. [id number] [facility]* Perioperative Nursing Note - Angelique Cameron RN - 06/12/2023 3:15 PM EDT Patient given incentive spirometer and instructed on use. Patient able to give correct return demonstration. +deep breathing and coughing exercises performed. Patient denies SOB/CP. [id number] Note* Perioperative Nursing Note - Sariah Pineda RN - 06/12/2023 2:59 PM EDT Report given to Angelique Yin [id number] Note* Perioperative Nursing Note - Sariah Pineda RN - 06/12/2023 2:28 PM EDT Pt MBS 184 T [id number] Note* Perioperative Nursing Note - Angelique Cameron RN - 06/12/2023 2:22 PM EDT Report off to Charles Rolle [place] [id number] Note* Perioperative Nursing Note - Angelique Cameron RN - 06/12/2023 2:00 PM EDT Received patient from OR to PACU with SIGNALER. Patient is sedated on simple mask @6l. No respiratory distress noted. Patient is waking up, will respond to verbal stimuli. Monitor on, Rn bedside. Safety maintained. T [id number] NoteAirway Date/Time: 06/12/2023 11:47 AM Urgency: scheduled Airway not difficult General Information and Staff Patient location during procedure: Procedural Resident/SIGNALER: Eli Fraga CRNA Performed: SIGNALER Performed by: Eli Fraga SIGNALER Authorized by: Eli Fraga CRNA Indications and [...] approach: 1 Number of other approaches attempted: [address] [place], [place] [address]10-05-2023 Note Peripheral Block Time Out: 06/12/2023 10:48 [...] monitoring: heart rate, continuous pulse ox and cardiac rn Laterality: left Injection technique: single-shot Guidance: nerve [...] No paresthesias reported by patient during injection [facility]10-05-2023 NoteH&P reviewed. The patient was examined and there are no changes to the H&P.[facility]10-05-2023 NotePatient: Pravin Melo Procedure Information Date/Time: 06/12/23 1100 Procedures: LEFT FOOT REMOVAL DEEP IMPLANT, REVISION CALCANEOCUBOID JOINT AND TALONAVICULAR JOINT ARTHRODESIS (Left: Foot) - 2.5 hours ARTHRODESIS FOOT MIDTARSAL OR METATARSAL WITH OSTEOTOMY (Left: Foot) Location: [address] Operating Room Surgeons: Simone Amin MD [...] PLT 294 04/16/2023 No results found for: NA, K, CL, CO2, BUN, CREATININE, GLUCOSE, CALCIUM, PROT, BILIRUBINFL, ALKPHOS, AST, ALT, EGFR, GLOB Pain Score: Scheduled 02/14/2022 SINUS RHYTHM LEFT AXIS DEVIATION LATE PRECORDIAL R/S TRANSITION No previous ECG available for comparison Electronically Signed On 02-14-2022 12:10:21 EDT by [facility] [id number] [facility] PreSurgical History and Physical Name: Pravin Melo [...] DR AMIN JOINT REPLACEMENT Bilateral 2021 knee- [facility] KNEE ARTHROSCOPY times 2- right knee melisa, left knee hayder SEPTOPLASTY [facility] THYROID SURGERY 2006- kill buck TUBAL LIGATION WISDOM TOOTH EXTRACTION No family [...] Historical Provider, ergocalciferol (Vitamin D2) 1.25 MG (43237 UT) capsule Take 1.25 mg by mouth [...] MD, MD Date: 06/12/2023 at 10:35 AM [facility] [id number] Note* Op Note - Simone Amin MD - 06/12/2023 11:32 AM EDT 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 [...] operative procedure the patient's head neck and airwaywere protected by the anesthesia staff. A tourniquet [...] was performed by myself, the circulating room nurseand the anesthesia staff. The patient's ASA was verified by the nurse glass block bender and the anesthesiastaff. Fire risk was assessed. An Esmarch bandage was then used to exsanguinate the limb. The tourniquet was then inflated. A longitudinal incision was placed midway between the anterior tibial tendon and the posterior tibial tendon overlying the talonavicular joint medially over the original medial incision site. The skin and subcutaneous tissues were divided any crossing vessels from the saphenous system were cauterized. Thewound was deepened down to level of the talonavicular joint. The nonunited joint space was identified. The two medial screws were found and removed. A lamina dandy tender was then placed within the TN joint and distraction was applied. The joint opened without difficulty. A culture was then obtained from the nonunion site. No signs of infection were present. Both opposing bone surfaces were prepped for fusion, removing all fibrous tissue, fully exposing bone on both side and then scaling both opposing bone surfaces with a small Humberto osteotome. The joint was then thoroughly irrigated [...] was achieved. Images were obtained in multiple planesof the foot and ankle to ensure proper [...] copious amounts of sterile saline. The subcutaneous tissueswere then closed utilizing 2-0 Vicryl. The skin [...] the left foot at the 6 week post- op visit [facility] Phone: [phone] Hospital Discharge instructions* Discharge Instructions* DOMINICK Potter - 06/12/2023 11:21 AM EDT Images from the original note were not included. SPLINT INSTRUCTIONS Keep your splint clean and dry. Do not put anything down in the splint to scratch. If your splint gets wet or starts to feel uncomfortable call Dr Amin immediately ([phone]). If you see any blood on the outside bandage reinforce it on the surface with gauze and an kelly bandage and call Dr Amin [phone]. Do not walk or stand on your splint. You can rest the splint on the floor but do not put weight on it. You should get up and move around once or twice an hour based on your comfort level. You are notto be at bed rest meaning you need [...] recreational drugs while taking the narcotic medication.[facility] restricts the amount of pain pills that [...] the total amount of pain medication that canbe prescribed so make every effort to take it only when needed. Unless otherwise instructed by Dr Amin you can take an over the counter anti-inflammatory to help with your pain as well. This includes but is not limited to Ibuprofen, Advil, Motrin, Alleve, etc. Do not take your supervisor intermediates Tramadol with the percocet A prescription for baby aspirin was sent to your pharmacy and Dr. Amin wants you to take one tablet twice a day for 30 days after surgery. If you have any issues with the medication call Dr. Amin. This is intended to try to prevent blood clots. WEIGHTBEARING INSTRUCTIONS Dr Amin wants you to be nonweight bearing on the left lower extremity. You will continue this weight bearing restriction for the next 6 weeks If you have any problems maintaining this weight bearingstatus please call the office so that appropriate [...] water in it, call Dr. Amin's office ([phone]) immediately and you will beinstructed which office can see your the quickest to change your splint/bandage. * Discharge Instr - Activity* DOMINICK Potter - 06/12/2023 11:21 AM EDT Weight-bearing and post-operative activity Dr Amin wants you to be nonweight bearing on the left lower extremity. You will continue this weight bearing restriction for the next 6 weeks If you have any problems maintaining this weight bearingstatus please call the office so that appropriate [...] during the day, let Dr Amin know. * Discharge Instr - Diet* DOMINICK Potter - 06/12/2023 11:22 AM EDT [...] at most local grocery stores, pharmacies, and [employer]-stores. If you have any questions about your diet or nutrition, call the hospital and ask for the dietitian. * Attachments The following attachments cannot be sent through Care Everywhere. * Moderate Sedation in Adults Discharge Instructions (Bulgarian) documented in this [facility]10-05-2023 Attending History and physical note* DOMINICK Potter - 06/12/2023 11:00 AM EDT H&P reviewed. The patient was examined and there are no changes to the H&P. Source Note - Simone Amin MD - 05/28/2023 11:45 AM EDT Images from the original note were not included. [facility] [address] [place] [address] [place] [phone] Dept: [phone] Dept Pravin Melo 1970 [id number] 05/28/2023 HISTORY OF PRESENT ILLNESS: Pravin is [...] the foot and had an increase in pain.She is worried that she may have broken [...] and oriented x 3. The patient appears wellnourished. 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 The subtalarjoint appears to be partially fused with an [...] the procedure, we can admit if necessary. Iexplained Pravin would need to be nonweightbearing and this would continue for up to 6 weeks following surgery. During this time Pravin may need to use crutches, a walker, a wheelchair, a knee scooter or a combination of these to get around. I talked to Pravin about the expected postoperative pain level following this type of procedure. Iexplained that each patient's perception of pain is different and she could experience more pain orless pain than the average patient and that is something that I cannot fully predict. I explained that she would receive a prescription for pain medication at the time of discharge from the hospital and subsequent requests will be considered based on her complaints, exam findings and length of timefrom surgery. The risks of surgery were discussed including but not limited to the risks of medications given forsurgery, the risk of blood loss during and after surgery that can lead to the need for blood products in certain situations, infection, damage to normal structures that can lead to usp problemsof pain or dysfunction, wound healing complications, the possibility of nonunion or malunion for any bone procedures if they are required and late or chronic pain. I explained to Pravin that surgerycan potentially make their condition worse or can lead to other unexpected problems that can have usp effects on their function or comfort. In [...] scheduled. Electronically signed by Simone Amin MD [facility] Department of Orthopedic surgery 05/28/2023 1:10 PM Voice recognition was used for portions of this note and although it was reviewed prior to signing some incorrect words or phrases could be present. [id number] History and physical note* DOMINICK Potter - 06/12/2023 11:00 AM EDT H&P reviewed. The patient was examined and there are no changes to the H&P. Source Note - Simone Amin MD - 05/28/2023 11:45 AM EDT Images from the original note were not included. [facility] [address] [place] [id number] Dept: [phone] Dept Pravin Melo 1970 [id number] 05/28/2023 HISTORY OF PRESENT ILLNESS: Pravin is [...] the foot and had an increase in pain.She is worried that she may have broken [...] and oriented x 3. The patient appears wellnourished. 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 The subtalarjoint appears to be partially fused with an [...] the procedure, we can admit if necessary. Iexplained Pravin would need to be nonweightbearing and this would continue for up to 6 weeks following surgery. During this time Pravin may need to use crutches, a walker, a wheelchair, a knee scooter or a combination of these to get around. I talked to Pravin about the expected postoperative pain level following this type of procedure. Iexplained that each patient's perception of pain is different and she could experience more pain orless pain than the average patient and that is something that I cannot fully predict. I explained that she would receive a prescription for pain medication at the time of discharge from the hospital and subsequent requests will be considered based on her complaints, exam findings and length of timefrom surgery. The risks of surgery were discussed including but not limited to the risks of medications given forsurgery, the risk of blood loss during and after surgery that can lead to the need for blood products in certain situations, infection, damage to normal structures that can lead to supervisor intermediates problemsof pain or dysfunction, wound healing complications, the possibility of nonunion or malunion for any bone procedures if they are required and late or chronic pain. I explained to Pravin that surgerycan potentially make their condition worse or can lead to other unexpected problems that can have supervisor intermediates effects on their function or comfort. In [...] scheduled. Electronically signed by Simone Amin MD [facility] Department of Orthopedic surgery 05/28/2023 1:10 PM Voice recognition was used for portions of this note and although it was reviewed prior to signing some incorrect words or phrases could be present. * Iain Olvera Jr., MD - 06/12/2023 10:34 AM EDT [facility] PreSurgical History and Physical Name: Pravin Melo [...] DR AMIN JOINT REPLACEMENT Bilateral 2021 knee- [facility] KNEE ARTHROSCOPY times 2- right knee melisa, left knee hayder [facility] THYROID SURGERY 2006- kill buck TUBAL LIGATION WISDOM TOOTH EXTRACTION No family [...] Historical Provider, ergocalciferol (Vitamin D2) 1.25 MG (22195 UT) capsule Take 1.25 mg by mouth 1 (one) time per week.Historical Provider, Farxiadelia 10 MG Take 10 mg by mouth [...] 06/12/2023 at 10:35 AM documented in this [facility]10-05-2023 History and physical note* Iain Olvera Jr., MD - 06/12/2023 10:34 AM EDT [facility] PreSurgical History and Physical Name: Pravin Melo [...] DR AMIN JOINT REPLACEMENT Bilateral 2021 knee- [facility] KNEE ARTHROSCOPY times 2- right knee melisa, left knee hayder [facility]PT[facility] THYROID SURGERY 2006- kill buck TUBAL LIGATION WISDOM TOOTH EXTRACTION No family [...] 1 tablet by mouth 2 times daily. 5/28/23 Yes Historical Provider, levothyroxine (Synthroid, Levoxyl) 150 [...] Historical Provider, ergocalciferol (Vitamin D2) 1.25 MG (79163 UT) capsule Take 1.25 mg by mouth 1 (one) time per week.Historical Provider, Farxiga 10 MG Take 10 mg [...] MD, MD Date: 06/12/2023 at 10:35 AM [employer] Work Phone: [phone] NotePatient: Pravin Melo Procedure Information Date/Time: 06/11/23 0900 Scheduled providers: Emily Cm RN Procedure: PAT OPTIMIZATION CALL Location: [facility] Pre-Admit Testing Relevant Problems Other (+) Arthritis [...] PLT 294 04/16/2023 No results found for: NA, K, CL, CO2, BUN, CREATININE, GLUCOSE, CALCIUM, PROT, BILIRUBINFL, ALKPHOS, AST, ALT, EGFR, GLOB No echocardiogram results found for the past 14 days No results found for this or any previous visit.[facility] 06-09-2023 NoteProcedure: left foot removal deep implant, revision calcaneocuoid joint and Talonavicular joint arthrodesis (29402) CPT codes: see above Diagnosis: No primary [...] removal tray and universal screw removal tray [facility]09-20-2023 [facility] [address] [place] [address] [place] [phone] Dept: [phone] Dept Pravin Melo 1970 [id number] 05/28/2023 HISTORY OF PRESENT ILLNESS: Pravin is [...] to normal structures that (more content not included)...[facility]09-14-2023 NoteWjani can just schedule surgery if she wants. SURGERY SCHEDULING SHEET Procedure: left foot removal deep implant, revision calcaneocuoid joint and Talonavicular joint arthrodesis (57953) CPT codes: see above Diagnosis: No primary [...] removal tray and universal screw removal tray [facility]08-09-2023 History of Present illness Narrative* Simone Amin MD - 04/16/2023 11:45 AM EDT Images from the original note were not included. [facility] [address] [place] [address] [place] [phone] Dept: [phone] Dept Pravin Melo 1970 [id number] 04/16/2023 HISTORY OF PRESENT ILLNESS: Pravin is [...] and oriented x 3. The patient appears wellnourished. The patient is able to verbalize normally [...] left foot, unspecified whether rheumatoid factor present ([facility]) Ambulatory referral for Orthotics MEDICAL DECISION MAKING: [...] actually feels better than preoperatively. 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 I explained that there can be risks [...] needs to have it adjusted by the saw straightener. If Pravin has any other questions pertaining to orthosis they were told to call me. Follow up if symptoms worsen or fail to improve, for call our office with any questions at [phone]. Electronically signed by Simone Amin MD [facility] Department of Orthopedic surgery 04/16/2023 12:32 PM Voice recognition was used for portions of this note and although it was reviewed prior to signing some incorrect words or phrases could be present. documented in this [facility]08-09-2023 History of Present illness Narrative* Simone Amin MD - 04/16/2023 11:45 AM EDT Images from the original note were not included. [facility] [address] [place] [address] [place] [phone] Dept: [phone] Dept Pravin Melo 1970 [id number] 04/16/2023 HISTORY OF PRESENT ILLNESS: Pravin is [...] and oriented x 3. The patient appears wellnourished. The patient is able to verbalize normally [...] foot, unspecified whether rheumatoid factor present (HCC) Ambulatory referral for Orthotics MEDICAL DECISION MAKING: [...] actually feels better than preoperatively. 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 I explained that there can be risks [...] needs to have it adjusted by the saw straightener. If Pravin has any other questions pertaining to orthosis they were told to call me. Follow up if symptoms worsen or fail to improve, for call our office with any questions at [phone]. Electronically signed by Simone Amin MD [facility] Department of Orthopedic surgery 04/16/2023 12:32 PM Voice recognition was used for portions of this note and although it was reviewed prior to signing some incorrect words or phrases could be present. documented in this [facility]08-09-2023 Miscellaneous Notes* Result Encounter Note - DOMINICK Potter - 04/16/2023 11:45 AM EDT Vitamin D supplement signed, called patient and made her aware * Addendum Note - DOMINICK Potter - 04/16/2023 11:45 AM EDTAddended by: ROCAEL POLO on: 04/21/2023 03:55 PM Modules accepted: Orders documented in this encounterSCleveland Clinic Mercy [id number] Note* Addendum Note - DOMINICK Potter - 04/16/2023 11:45 AM EDTAddended by: ROCAEL POLO on: 04/21/2023 03:55 PM Modules accepted: Orders [place] [id number] Progress note* Result Encounter Note - DOMINICK Potter - 04/16/2023 11:45 AM EDT Vitamin D supplement signed, called patient and made her aware [place] [id number] Telephone encounter Note* Telephone Encounter - Cici Daigle MA - 04/10/2023 3:47 PM EDT Spoke to the patient. She is scheduled to [facility] next week with updated xrays [place] [id number] Miscellaneous Notes* Telephone Encounter - Cici Daigle MA - 04/10/2023 3:47 PM EDT Spoke to the patient. She is scheduled to eROI next week with updated xrays * Telephone Encounter - Susie Chairez - 04/09/2023 8:19 AM EDT Looks like this was sent to [facility] by mistake. Was routed to ortho after us. * Telephone Encounter - Rowan Cardona RN - 04/08/2023 4:28 PM EDT S: Patient spoke with [facility] nurse regarding [...] present > 3 days Protocols used: Foot Nevi-MHGAC-WE documented in this encounterSCleveland Clinic Mercy [id number] Telephone encounter Note* Telephone Encounter - Susie Chairez - 04/09/2023 8:19 AM EDT Looks like this was sent to [facility] by mistake. Was routed to ortho after us. [id number] Miscellaneous Notes* Telephone Encounter - Susie Chairez - 04/09/2023 8:19 AM EDT Looks like this was sent to [facility] by mistake. Was routed to ortho after us. * Telephone Encounter - Rowan Cardona RN - 04/08/2023 4:28 PM EDT S: Patient spoke with [facility] nurse regarding foot pain B: Onset of [...] present > 3 days Protocols used: Foot Gaxa-IMAXY-BT documented in this [facility]08-01-2023 Telephone encounter Note* Telephone Encounter - Rowan Cardona RN - 04/08/2023 4:28 PM EDT S: Patient spoke with [facility] nurse regarding [...] present > 3 days Protocols used: Foot Gdwg-EKANR-DW [facility] [id number] History of Present illness Narrative* Simone Amin MD - 10/11/2022 1:15 PM EST Images from the original note were not included. [facility] [address] [phone] Dept: [phone] Dept Pravin Dumontler 1970 [id number] 10/11/2022 HISTORY OF PRESENT ILLNESS: Pravin is here for her 6 month(s) postoperative visit s/p left postoperative visit s/p left foot triple arthrodesis, #2 Left Achilles triple cut tendon lengthening, #3 left EHL tendon transfer. Her surgery was on 03/07/22. Pravin reports that her pain has decreased since the surgery/last visit. She had a slight increasein pain in her ankle after getting her knee replaced and adjusting after that surgery, but states overall very little pain Pravin reports that her swelling is unchanged since the last visit Pravin had been [...] and oriented x 3. The patient appears wellnourished. The patient is able to verbalize normally [...] able to actively move the ankle/foot/toes The incisions are healed and benign Tenderness: no areas of tenderness on exam Gait: Near normal ambulation RADIOGRAPHIC INTERPRETATION: 3 weight bearing views of the Left foot were obtained and the following is my interpretation of thefindings present of the X-rays: 2 of the screws crossing the talonavicular joint, and one of the screws in the plate crossing the calcaneocuboid joint is broken which was noted on previous imaging and is stable. Interval bone healing noted of the calcaneocuboid joint fusion as compared to previous imaging. Longitudinal arch height is maintained. REVIEW OF RELATED PREVIOUS DOCUMENTATION: No documents related to the current problem(s) were reviewed or no documents were available for review. LABORATORY RESULT INTERPRETATION: No labs were reviewed/No labs available for review DIAGNOSIS: Diagnosis Plan 1. Arthritis of foot MEDICAL DECISION MAKING: I had a discussion with Pravin to make sure she has a good understanding of the diagnoses/issues that I think are present today and understands the plan moving forward. Pravin is doing well overall. We discussed the plan moving forward. Pravin will be seen back onlyif she has any issues, problems or concerns. We discussed possible reasons she might need to be seen in the future and she understands she is to call if he has an issue. As long as she is doing well he can follow-up on an as needed basis. I explained to Pravin that although she has some broken screws, I see an improvement in the bone fusions themselves. We discussed that as long as she is feeling comfortable we do not need to do anything further. Elevation Instructions: Pravin can have the foot/ankle down in a dependent position for as long as it is comfortable and should elevate if the foot/ankle becomes uncomfortable. Shoe/Boot Instructions: Pravin can continue to wear her regular shoe for weight bearing activities. . Weight Bearing Instructions: Pravin was instructed to be weight bearing as tolerated on the left lower extremity in her regularshoe. If Pravin has any problems maintaining this weight bearing status she was instructed to callme so that appropriate instructions can be given. Medications: No medication prescriptions were given/sent at today's visit. Xray at next visit: Not applicable Follow up if symptoms worsen or fail to improve. Electronically signed by Simone Amin MD [facility] Department of Orthopedic surgery 10/11/2022 3:48 PM Voice recognition was used for portions of this note and although it was reviewed prior to signing some incorrect words or phrases could be present. documented in this [facility]12-07-2022 Hospital Discharge instructions Patient Education 08/14/2022 10:19:11 Total Knee Replacement, Care After, Wiuz-hu-Gmri Total Knee Replacement, Care After This sheet [...] Follow these instructions at home: Medicines Take yjgn-yrv-suukqox and prescription medicines only as told by [...] keep your pee (urine) pale yellow. ?Take jwyt-juj-dxwhsie or prescription medicines. ?Eat foods that are [...] cannot use soap and water, use hand splitter head. ?Change your bandage as told by your [...] contain nicotine or tobacco, such as cigarettes, e- cigarettes, and chewing tobacco. These can delay healing. [...] 11/16/2012 Document Revised: 01/03/2020 Document Reviewed: 04/08/2019 [employer] Patient Education 2020 [employer]. 08/14/2022 06:58:14 5 - [facility] Post-op Instruction 04/2017 (48132) [facility] Post-operative Instructions PLEASE FOLLOW [facility] POST-OP INSTRUCTIONS GIVEN WATCH FOR SIGNS OF INFECTION: call the office ([phone]) if experencing any of the following: (Usually [...] on your follow up instructions. Form: 338A (81129) R: 01/12 Follow Up Care 06/03/2022 11:31:48 With:[facility] Address: When:08/16/2022 11:26:00 Comments:Patient has it scheduled With:WALI BRANDON PA-C, Orthopedic Address: [facility] [address] [place] [address] [place] [address]- When:08/26/2022 14:45:00 Comments:Follow-up as scheduled [facility]bil 12-07-2022 Note Discharge Instructions Thank you for allowing [facility] to assist you with your healthcare needs. The following is importantdischarge information regarding your hospital visit. Your Care Team SERGIO JAUREGUI DO [facility] Your Diagnosis Diabetes Hypertension, essential Hypothyroid Obstructive sleep apnea Primary osteoarthritis of left knee Status post total left knee replacement What to do next Follow Up Appointments Follow Up with WALI BRANDON PA-C, Orthopedic When 08/26/2022 02:45 PM EST Why: Follow-up as scheduled Where: [facility] [address] [place] [address]- Follow Up with [facility] When 08/16/2022 11:26 AM EST Why: Patient has it scheduled Where: Allergies Grass (Unknown) Feathers (Unknown) flu vaccines sulfa drug (Syncope, Rash) Medications Please ask your primary doctor or pharmacist before taking any other medication not listed, including over the counter drugs, herbal medications, vitamins and or supplements as they may interact withyour home medications. What How Much When Why Instructions Last Dose New aspirin (aspirin 81 mg oral delayed release tablet) 1 tab(s) by mouth Two (2) times a day Duration: 30 Days Take 81 mg aspirin twice daily with food for 4 weeks postoperatively for DVT prophylaxis. Pickup at [facility]/pharmacy #4605 New docusate-senna (Senokot S 50 mg-8.6 mg oral tablet) 2 tab(s) by mouth Two (2) times a day Take until first bowel movement, then as needed Pickup at [facility]/pharmacy #4605 New doxycycline (doxycycline hyclate 100 mg oral capsule) 1 cap by mouth Every 12 hours Duration: 14 Days Pickup at [facility]/pharmacy #4605 New famotidine (Pepcid 20 mg oral tablet) 1 tab(s) by mouth Once a day Pickup at [facility]/pharmacy #4605 New oxyCODONE (oxyCODONE 5 mg oral tablet ( IMMEDIATE release )) See instructions Status post total left knee replacement 1-2 tab(s) Oral q4h Pickup at [facility]/pharmacy #4605 Changed acetaminophen (Tylenol) 1,000 Milligram by [...] day as needed for hives Pharmacy Information [facility]/pharmacy #4605: [address] [place] [address] [phone] What How Much When Comments Stop Taking [...] [place] ti ronald) Heartburn Relief, Leader Acid Climate Change Risk Assessor, Pepcid, Pepcid AC, Pepcid AC Maximum Strength, [...] may report side effects to FDA at 4-214-TBZ-0459. What other drugs will affect famotidine? Famotidine oral can make it harder for your body to absorb other medicines you take by mouth. Tell your doctor if you are taking: cefditoren; dasatinib; delavirdine; fosamprenavir; or tizanidine (if you are taking famotidine liquid). This list is not complete. Other drugs may affect famotidine, including prescription and kttm-rvx-uzfwpyr medicines, vitamins, and herbal products. Not all [...] to ensure that the information provided by [employer] ('[employer]') is accurate, up-to-date, and complete, but no guarantee is made to that effect. Drug information contained herein may be time sensitive. [employer] information has been compiled for use by healthcare practitioners and consumers in the [place] and therefore [employer] does not warrant that uses outside of the [place] are appropriate, unless specifically indicated otherwise. [employer] drug information does not endorse drugs, diagnose patients or recommend therapy. [employer] drug information isan informational resource designed to assist licensed healthcare practitioners in caring for their p atients and/or to serve consumers viewing this service as a supplement to, and not a substitute for, the expertise, skill, knowledge and judgment of healthcare practitioners. The absence of a warningfor a given drug or drug combination in no way should be construed to indicate that the drug or drug combination is safe, effective or appropriate for any given patient. [employer] does not assume any responsibility for any aspect of healthcare administered with the aid of information [employer] provides. The information contained herein is not intended to cover all possible uses, directions, precautions, warnings, drug interactions, allergic reactions, or adverse effects. If you have questions about the drugs you are taking, check with your doctor, nurse or pharmacist. Copyright 7626-4361 [employer] Version: 18.. Revision Date: 02/15/2021. aspirin (oral) ( pir in) Arthritis Pain, Aspi-Cor, Aspir-Low, Edna Plus, Durlaza, Ecotrin, Miniprin, Vazalore What is the most important information I should know about aspirin? Aspirin can cause Ceci's syndrome, a serious and sometimes fatal condition in children. What is aspirin? Aspirin is a salicylate (ie-GMX-sb-ate) that is used to treat pain, and [...] may report side effects to FDA at 3-422-XPX-8613. What other drugs will affect aspirin? Ask [...] drugs may affect aspirin, including prescription and qcwn-dbl-gkajrgf medicines, vitamins, and herbal products. Not all [...] to ensure that the information provided by [employer] ('[employer]') is accurate, up-to-date, and complete, but no guarantee is made to that effect. Drug information contained herein may be time sensitive. [employer] information has been compiled for use by healthcare practitioners and consumers in the [place] and therefore [employer] does not warrant that uses outside of the [place] are appropriate, unless specifically indicated otherwise. [employer] drug information does not endorse drugs, diagnose patients or recommend therapy. [employer] drug information isan informational resource designed to assist licensed healthcare practitioners in caring for their p atients and/or to serve consumers viewing this service as a supplement to, and not a substitute for, the expertise, skill, knowledge and judgment of healthcare practitioners. The absence of a warningfor a given drug or drug combination in no way should be construed to indicate that the drug or drug combination is safe, effective or appropriate for any given patient. [employer] does not assume any responsibility for any aspect of healthcare administered with the aid of information [employer] provides. The information contained herein is not intended to cover all possible uses, directions, precautions, warnings, drug interactions, allergic reactions, or adverse effects. If you have questions about the drugs you are taking, check with your doctor, nurse or pharmacist. Copyright 1964-7865 [employer] Version: 16.03. Revision Date: 03/05/2021. doxycycline (oral/injection) [...] eye infections, gonorrhea, chlamydia, periodontitis (gum disease), andothers. Doxycycline is also used to treat blemishes, [...] effective. Ask your doctor about using a non-hormonalbirth control (condom, diaphragm with spermicide) to prevent . Doxycycline can pass into breast milk and may affect bone and tooth development in a nursing . Do not breastfeed while you are taking doxycycline. Doxycycline can cause permanent yellowing or graying of the teeth in children younger than 8 years old. Children should use doxycycline only in cases of severe or life-threatening conditions such as anthrax or Morning Glory spotted fever. The benefit of treating a [...] provided, or with a special dose-measuring spoon ormedicine cup. If you do not have a [...] reaction (fever, sore throat, burning in your eyes,skin pain, red or purple skin rash that spreads and causes blistering and peeling). Seek medical treatment if you have a serious drug reaction that can affect many parts of your body.Symptoms may include: skin rash, fever, swollen glands, flu- like symptoms, muscle aches, severe weakness, unusual bruising, [...] may report side effects to FDA at 4-501-PVM-9972. What other drugs will affect doxycycline? Sometimes it is not safe to use certain medications at the same time. Some drugs can affect your blood levels of other drugs you take, which may increase side effects or make the medications less effective. Other drugs may affect doxycycline, including prescription and asdb-yjx-kydxiij medicines, vitamins, and herbal products. Tell your [...] to ensure that the information provided by [employer] ('[employer]') is accurate, up-to-date, and complete, but no guarantee is made to that effect. Drug information contained herein may be time sensitive. [employer] information has been compiled for use by healthcare practitioners and consumers in the [place] and therefore [employer] does not warrant that uses outside of the [place] are appropriate, unless specifically indicated otherwise. [employer] drug information does not endorse drugs, diagnose patients or recommend therapy. [employer] drug information isan informational resource designed to assist licensed healthcare practitioners in caring for their p atients and/or to serve consumers viewing this service as a supplement to, and not a substitute for, the expertise, skill, knowledge and judgment of healthcare practitioners. The absence of a warningfor a given drug or drug combination in no way should be construed to indicate that the drug or drug combination is safe, effective or appropriate for any given patient. [employer] does not assume any responsibility for any aspect of healthcare administered with the aid of information [employer] provides. The information contained herein is not intended to cover all possible uses, directions, precautions, warnings, drug interactions, allergic reactions, or adverse effects. If you have questions about the drugs you are taking, check with your doctor, nurse or pharmacist. Copyright 3541-9012 [employer]. Version: 21.. Revision Date: 07/12/2020. docusate and senna (DOK [...] bedtime. Docusate and senna should cause you tohave a bowel movement within 6 to 12 [...] laxative or other stool softener that may containingredients similar to docusate or senna. What are [...] may report side effects to FDA at 2-548-BBP-3658. What other drugs will affect docusate and senna? Other drugs may affect docusate and senna, including prescription and edjq-oyj-rlciqhp medicines, vitamins, and herbal products. Tell your doctor about all your current medicines and any medicine youstart or stop using. Where can I get more information? Your pharmacist can provide more information about docusate and senna. Remember, keep this and all other medicines out of the reach of children, never share your medicines with others, and use this medication only for the indication prescribed. Every effort has been made to ensure that the information provided by [employer]') is accurate, up-to-date, and complete, but no guarantee is made to that effect. Drug information contained herein may be time sensitive. [employer] information has been compiled for use by healthcare practitioners and consumers in the [place] and therefore [employer] does not warrant that uses outside of the [place] are appropriate, unless specifically indicated otherwise. [employer] drug information does not endorse drugs, diagnose patients or recommend therapy. [employer] drug information isan informational resource designed to assist licensed healthcare practitioners in caring for their p atients and/or to serve consumers viewing this service as a supplement to, and not a substitute for, the expertise, skill, knowledge and judgment of healthcare practitioners. The absence of a warningfor a given drug or drug combination in no way should be construed to indicate that the drug or drug combination is safe, effective or appropriate for any given patient. [employer] does not assume any responsibility for any aspect of healthcare administered with the aid of information [employer] provides. The information contained herein is not intended to cover all possible uses, directions, precautions, warnings, drug interactions, allergic reactions, or adverse effects. If you have questions about the drugs you are taking, check with your doctor, nurse or pharmacist. Copyright 5386-6465 [employer]. Version: 3.02. Revision Date: 11/22/2020. lisinopril ([place]se [place] pril) Garyil, [place], Zestril What is the most important information I should know about lisinopril? Do not use if you are , and tell your doctor right away if you become . If you have diabetes, do not use lisinopril together with any medication that contains aliskiren (ablood pressure medicine). Do not take lisinopril within [...] in adults, or to improve survival after aheart attack. Lisinopril may also be used for [...] together with any medication that contains aliskiren (ablood pressure medicine). You may also need to [...] or if you are sweating more than usual.You can easily become dehydrated while taking lisinopril. This can lead to very low blood pressure,a serious electrolyte imbalance, or kidney failure. If [...] have an allergic reaction if you are -[place]. Call your doctor at once if you have: a light-headed feeling, like you might pass out; fever, sore throat; high potassium--nausea, weakness, tingly feeling, chest pain, irregular heartbeats, loss of movement; kidney problems--little or no urination, swelling in your feet or ankles, feeling tired or short ofbreath; or liver problems--nausea, upper stomach pain, itching, [...] may report side effects to FDA at 5-559-RYO-4014. What other drugs will affect lisinopril? Tell [...] drugs may affect lisinopril, including prescription and tyah-agt-tmfhjgs medicines, vitamins, and herbal products. Not all [...] to ensure that the information provided by [employer]') is accurate, up-to-date, and complete, but no guarantee is made to that effect. Drug information contained herein may be time sensitive. [employer] information has been compiled for use by healthcare practitioners and consumers in the [place] and therefore [employer] does not warrant that uses outside of the [place] are appropriate, unless specifically indicated otherwise. [employer]'s drug information does not endorse drugs, diagnose patients or rec (more content not included)... [facility]12-07-2022 Note Date of Service 08/14/2022 Chief Complaint [...] by BERNIE RIZO on 08/14/2022 07:24 PM [facility]12-07-2022 Note Date of Service August 14, 2022 Subjective The patient was sitting in bed upon examination. Patient denies any chest pain, shortness of breath, dizziness, lightheadedness, nausea or vomiting, or calf pain. No adverse overnight events. Pain has been controlled on medications. Patient overall is doing well. She has no complaints this morning.She does have previous history of right total [...] hose I would recommend we remove those MICHAEL hose and place Kelly wrap on the [...] as long as patient's pain is well controlled,tolerates therapy, and medically stable. Patient has stopped her Xeljanz and we will continue to hold off of this medication for an additional 2 weeks. She does have tramadol at home in which I explained to her she should never mix to narcotics together. Continue with the oxycodone for postoperative pain control. Patient would like her prescriptions E scribed to [facility] in [facility]. She has outpatient physical therapy established. She will follow-up per postop instructions. OARRS was attempted but error occurred. This dictation was created using voice recognition software. Phonetic and/or grammatical errors mayexist. Digitally Signed by WALI BRANDON PA-C on 08/14/2022 06:58 AM [facility]12-06-2022 Note ORIGINAL HISTORY: Post arthroplasty COMPARISON: No [...] Sign Date: 08/13/2022 10:38:08 AM Ordering Provider: [facility]12-06-2022 Note ORIGINAL HISTORY: Post arthroplasty COMPARISON: No [...] Sign Date: 08/13/2022 10:38:08 AM Ordering Provider: [facility]12-06-2022 Anesthesiology Consult note Patient: PRAVIN MELO Age: 52 years Sex: Female : 1970 Associated Diagnoses: None Author: BLADE MARK Assessment Postanesthesia assessment Vitals: Reviewed Results: Vital signs from flowsheet : Vital Signs(Date Range: 08/12/2022 0:00 EST -08/13/2022 10:12 EST) . Mental status: at preoperative baseline. Respiratory function: lungs are clear to auscultation. Respiratory support: none. CV function: Normal rate. Cardiovascular support: none. Pain. Nausea status: denies nausea. Postoperative hydration status: within normal limits. Digitally Signed by BLADE MARK on 08/13/2022 10:12 AM [facility]12-06-2022 Anesthesiology Consult note Patient: PRAVIN MELO Age: [...] TABLET BY MOUTH THREE TIMES A DAY ASNEEDED turmeric 500 mg oral capsule: 500 mg, [...] 2.5 mg 25 mg 5 mL, Other, [facility] ropivacaine 25 mg + ketorolac 15 mg + epinephrine 0.3 mg + morphine 2.5 mg 25 mg 5 mL, Other, [facility] tranexamic acid 1 gram(s) 10 mL, IV Piggyback, AsDirected tranexamic acid 1 gram(s) 10 mL, IV Piggyback, AsDirected Continuous: (1) Lactated Ringers 1000 mL 1,000 mL, Intravenous, 20 mL/hr PRN: (0) Problem list: Medical Morbid obesity with BMI of 45.0-49.9, adult / SNOMED CT 1875480245 / Confirmed Diabetes / SNOMED CT 370751746 / Confirmed Hypertension, essential / SNOMED CT 38845618 / Confirmed Fatigue / SNOMED CT 405244619 / Confirmed Hypothyroid / SNOMED CT 39860714 / Confirmed Obstructive sleep apnea / SNOMED CT 5195253482 / Confirmed Primary osteoarthritis of left knee / SNOMED CT 6863864799 / Confirmed Breast cancer screening by mammogram / SNOMED CT 541559760 / Confirmed Pre-op exam / SNOMED CT 881465500 / Confirmed Persistent insomnia / SNOMED CT 583852496 / Confirmed PCO (polycystic ovaries) / SNOMED CT 166840138 / Confirmed Restless legs syndrome / SNOMED CT 16852393 / Confirmed Arthritis, rheumatoid / SNOMED CT 357265921 / Confirmed Apnea, sleep / SNOMED CT 261479894 / Confirmed, Active Problems (16) Apnea, sleep Arthritis, rheumatoid Breast cancer screening by mammogram Diabetes Fatigue Fatty liver Hypertension, essential Hypothyroid Morbid obesity with BMI of 45.0-49.9, adult Obstructive sleep apnea Osteoarthritis PCO (polycystic ovaries) Persistent insomnia Pre-op exam Primary osteoarthritis of left knee Restless legs syndrome Histories Past Medical History: Active Hypothyroid (23586110) PCO (polycystic ovaries) (207072152) Arthritis, rheumatoid (727293955) Apnea, sleep (881792419) Diabetes (836685990) Resolved UTI symptoms (376842768): Resolved. Exposure to COVID-19 virus (1881344528): Resolved. Rash (578944303): Resolved. Discharge from left nipple (120127825): Resolved., HTN Family History: Dementia Mother (Tete Ospina) Diabetes mellitus Father (Paul Ospina, ) Hypertension Father (Paul Ospina, ) Arthritis Father (Paul Ospina, ) HTN - Hypertension Mother (Tete Ospina) Procedure history: Arthroplasty of knee using cement ([id number]) on 01/05/2019 at 48 Years. Comments: 01/05/2019 9:44 Lisa Gomez RN ROBOTIC ASSISTED RIGHT KNEE ARTHROPLASTY Mammogram ([id number]) on 08/14/2018 at 48 Years. Comments: 05/17/2019 9:04 Valarie Keller RN BI-RADS 0; [facility] recommended US Ultrasound ([id number]) on 08/14/2018 at 48 Years. Comments: 05/17/2019 9:05 Valarie Keller RN Normal; RT: 2 benign appearing right axillary lymph nodes, LT: 2benign appearing axillary lymph nodes, Category 2: Benign [facility] Colonoscopy ([id number]) in 2008 at 39 Years. Comments: 05/17/2019 9:03 Valarie Keller RN within normal limits Thyroid (253263955) in 2006 at 37 Years. 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 Comments: 12/23/2018 11:55 Aminah Negro RN x2 History of partial thyroidectomy (0618273094). Arthroscopy of knee (105982107). Comments: 12/23/2018 11:56 Aminah Negro RN Bilateral Bilateral tubal ligation (370159994). Diagnostic laparoscopy of female pelvis (618134560). Endometrial ablation (673217443). Cholecystectomy (07386312). Nasal septoplasty (48624949). Ankle (4817141). 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 Assessment and Plan [place] [employer] of Anesthesiologists (ASA) physical status classification: Class III. Anesthetic Preoperative Plan Premedication: intravenous. Anesthetic technique: Spinal. Regional: Spinal, Adductor Canal Block. Postoperative pain management: Per surgeon. Risks discussed: nausea, vomiting, headache, sore throat, dental injury, hypotension, allergic reaction, serious complications. Informed consent: signed by patient. Digitally Signed by BLADE MARK on 08/13/2022 07:21 AM [facility]06-30-2022 History of Present illness Narrative * Sariah Pineda RN - 03/07/2022 2:31 PM EDT Pt up to restroom with assist - no difficulty and able to void, pt back to bed c/o nausea and dizziness at this time, will monitor at bedside * Sariah Pineda RN - 03/07/2022 1:54 PM EDT PT unable to void via bedpan- will attempt restroom in a few minutes, pt VS stable, pt tolerating sips of cola, will monitor * Sariah Pineda RN - 03/07/2022 1:21 PM EDT Pt received from OR via cart, spont. Resp. With SIGNALER in attendance. Placed on monitor. Monitor alarms on in PACU documented in this [facility] Work Phone: 1(730) 214-277706-30-2022 Hospital Discharge instructions* Discharge Instr - Activity* DOMINICK Potter - 03/07/2022 9:36 AM EDT Weight-bearing and post-operative activity Dr Amin wants you to be nonweight bearing on the Left lower extremity. You will continue this weight bearing restriction for the next 6 weeks If you have any problems maintaining this weight bearingstatus please call the office so that appropriate [...] during the day, let Dr Amin know. * Discharge Instr - Diet* DOMINICK Potter - 03/07/2022 9:36 AM EDT [...] at most local grocery stores, pharmacies, and [employer]-stores. If you have any questions about your diet or nutrition, call the hospital and ask for the dietitian. * Additional Instructions* Rocael Polo PA - 03/07/2022 Images from the original note were not included. SPLINT INSTRUCTIONS Keep your splint clean and dry. Do not put anything down in the splint to scratch. If your splint gets wet or starts to feel uncomfortable call Dr Amin immediately ([phone]). If you see any blood on the outside bandage reinforce it on the surface with gauze and an kelly bandage and call Dr Amin [phone]. Do not walk or stand on your splint. You can rest the splint on the floor but do not put weight on it. You should get up and move around once or twice an hour based on your comfort level. You are notto be at bed rest meaning you need [...] recreational drugs while taking the narcotic medication.[facility] restricts the amount of pain pills that [...] the total amount of pain medication that canbe prescribed so make every effort to take [...] you have any problems maintaining this weight bearingstatus please call the office so that appropriate [...] water in it, call Dr. Amin's office ([phone]) immediately and you will beinstructed which office can see your the quickest to change your splint/bandage. documented in this [facility] Work Phone: 1(981) 355-525106-09-2022 Hospital Discharge instructions* Instructions* Mag Buchanan RN - 02/14/2022 PLEASE BE AWARE THAT [...] OF SURGERY WITH DATE/TIME LAST DOSE OF MEDICATIONSTAKEN. Hold meloxicam 3 days prior to surgery Hold all vitamin supplements 5 days prior to surgery Hold ibuprofen for 24 hours prior to surery may take tylenol for pain if needed Hold glyxambi the am of surgery Please take levothyroxine the am of surgery documented in this [facility] Work Phone: 1(670) 304-895004-05-2022 Evaluation + Plan note Future Scheduled Tests Radiology* XR Foot Minimum 3 Views Left 12/11/21 * XR Ankle Minimum 3 Views Left 12/11/21 [facility] 03-26-2022 Hospital Discharge instructions Patient Education 12/01/2021 12:22:07 Animal Bite (General) Animal Bite (General) An animal bite can cause a wound deep enough to break the skin. In such cases, the wound is cleanedand then sometimes closed. If the wound is closed, it may not be closed completely. This is so thatfluid can drain and prevent the wound from [...] a secure area for the next 10 daysto watch for signs of illness. (If the pet supervisor asbestos removal won t allow this, contact your local animal control center.) If the dog or cat becomes ill or dies during that time, contact your local animal controlcenter at once so the animal may be [...] stopped after 5 minutes of firm pressure [phone] [employer]. [address] [place], [place] [address]. All rights reserved. This information is not intended as a substitute for professional medical care. Always follow yourhealthcare professional's instructions. 12/01/2021 12:22:06 Cat Bite Cat Bite A cat bite can cause a wound deep enough to break the skin. In such cases, the wound is cleaned andthen sometimes closed. If the wound is closed [...] for signs of illness. If the pet supervisor asbestos removal won t allow this, contact your local [...] Call your healthcare provider right away. Or returnto the emergency department promptly. All animal bites [...] lymph nodes in the armpit if you werebitten on the hand or arm. This may be a sign of cat-scratch disease (cat-scratch fever). Signs of rabies infection: oHeadache oConfusion oStrange behavior oIncreased salivating or drooling oSeizure Decreased ability to move any body part near the bite area Bleeding that can't be stopped after 5 minutes of firm pressure [id number] [employer]. [address] [place] [address]. All rights reserved. This information is not intended as a substitute for professional medical care. Always follow yourhealthcare professional's instructions. Follow Up Care 12/01/2021 12:03:40 With:SERGIO JAUREGUI DO Address: [phone] When:2-4 days With:Go to emergency room if symptoms worsen Address:Unknown When:2-4 days [facility] 08-02-2021 Evaluation + Plan note Future Scheduled Tests Radiology* XR Wrist Minimum 3 Views Left 04/09/21 [facility] Evaluation + Plan note Future Appointments Appointment Date:07/24/2021 08:00:00 AM Scheduled Provider:SERGIO JAUREGUI DO Location:[place] Appointment Type: OV Future Scheduled Tests Radiology* XR Wrist Minimum 3 Views Left 04/09/21 [facility] Evaluation + Plan note Future Appointments Appointment Date:08/05/2022 08:30:00 AM Scheduled Provider:SERGIO JAUREGUI DO Location:[place] Appointment Type:PC OV Pre Op Future Scheduled Tests Radiology* XR Foot Minimum 3 Views Left 12/11/21 * XR Ankle Minimum 3 Views Left 12/11/21 [facility] Evaluation + Plan note Future Appointments Appointment Date:03/25/2024 03:00:00 PM Scheduled Provider:SERGIO JAUREGUI DO Location:[place] Appointment Type:PC OV Follow Up [facility] Evaluation + Plan note Future Appointments Appointment Date:03/22/2025 11:00:00 AM Scheduled Provider:HERBIE JAQUEZ Location:[place] Appointment Type: OV Future Scheduled Tests Laboratory* Thyroid Stimulating Hormone 04/22/25 * A1C Hemoglobin 04/22/25 * Lipid Profile 04/22/25 * Complete Metabolic Panel 04/22/25 Radiology* CT Coronary Calcium Score w/o Contrast 12/02/24 [facility] Evaluation + Plan note Future Appointments Appointment Date:08/23/2025 11:00:00 AM Scheduled Provider:HERBIE JAQUEZ Location:[place] Appointment Type: Wellness Annual Future Scheduled Tests Laboratory* Basic Metabolic Panel 04/22/25 * Thyroid Stimulating Hormone 04/22/25 * A1C Hemoglobin 04/22/25 * Lipid Profile 04/22/25 * PTH, Intact 04/22/25 * Complete Metabolic Panel 04/22/25 Radiology* CT Coronary Calcium Score w/o Contrast 12/02/24 [facility] Evaluation + Plan note Future Appointments Appointment Date:08/23/2025 11:00:00 AM Scheduled Provider:HERBIE JAQUEZ Location:[place] Appointment Type:PC Wellness Annual Future Scheduled Tests Laboratory* Thyroid Stimulating Hormone 04/22/25 * A1C Hemoglobin 04/22/25 * Lipid Profile 04/22/25 * Complete Metabolic Panel 04/22/25 Radiology* CT Coronary Calcium Score w/o Contrast 12/02/24 [facility] evaluation noteNo assessment information available [facility] Work Phone: Evaluation note* Diagnosis Traumatic rupture of left anterior tibial tendon, subsequent encounter- Primary Arthritis of foot Unspecified arthropathy, ankle and foot documented in this encounter [facility] Work Phone: Evaluation note* Diagnosis Arthritis of foot Unspecified arthropathy, ankle and foot documented in this encounter [facility] Work Phone: Evaluation note* Diagnosis Traumatic rupture of left anterior tibial tendon, subsequent encounter documented in this encounter [facility] Work Phone: Evaluation note* Diagnosis Arthritis of foot- Primary documented in this encounter [facility] note* 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 Rheumatoid arthritis of left foot, unspecified whether rheumatoid factor present ([facility]) documented in this encounter [facility] note* 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 Rheumatoid arthritis of left foot, unspecified whether rheumatoid factor present ([facility]) documented in this encounter [facility] note* 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 documented in this encounter [facility] note* Diagnosis Arthritis of foot- Primary 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 documented in this encounter [facility] note* 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 documented in this encounter [facility] note* 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 [facility] 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 [facility]* Diagnosis Type 2 diabetes mellitus with hyperglycemia (HCC)- Primary documented in this encounter [facility] note* Diagnosis Traumatic rupture of left anterior tibial tendon, subsequent encounter documented in this encounter [facility] note* Diagnosis Arthritis of foot- Primary documented in this encounter [facility] note* Diagnosis Benign lipomatous neoplasm of skin and subcutaneous tissue Lipoma of other skin and subcutaneous tissue documented in this encounter [facility] note* Diagnosis Lipoma of right upper extremity- Primary Lipoma of other specified sites documented in this encounter [facility] note* Diagnosis Visit for wound check- Primary Encounter for other specified aftercare documented in this encounter [facility] note* Diagnosis Encounter for screening for cardiovascular disorders Type 2 diabetes mellitus without complications documented in this encounter [facility] Work Phone: Hospital course Narrative No data available for this section [facility] Hospital Discharge instructions No data available for this section [facility] Progress note No data available for this section [facility] Reason for referral (narrative)* Consultation (Routine) - Pending Review Specialty Diagnoses / Procedures Referred By Dora whitley Referred To Contact Orthotics Diagnoses Rheumatoid arthritis of left foot, unspecified whether rheumatoid factor present (HCC) Simone Amin MD 1 [facility] [address] [place] [id number] Referral ID Status Reason Start Date Expiration Date Visits Requested Visits Authorized [id number] Pending Review Specialty Services Required 04/16/2023 04/15/2024 1 1 [facility] for referral (narrative)No reason for [facility] Work Phone: Reason for visit Narrative* Imaging (Routine) - Pending Review Specialty Diagnoses / Procedures Referred By Dora whitley Referred To Contact Radiology Diagnoses Encounter for screening for cardiovascular disorders Type 2 diabetes mellitus without complications Procedures CT cardiac scoring wo IV contrast Sergio Jauregui, [place] [address] Phone: tel: fax: Referral ID Status Reason Start Date Expiration Date Visits Requested Visits Authorized [id number] Pending Review Perform Procedure 12/10/2024 12/10/[address] [facility] Work Phone: Summary Purpose Family History No Family History Records Found Relationship Condition Age at Onset Recorded Date/T amos Not Specified Alzheimer's dementia Unknown Diabetes mellitus Unknown Kidney disorder Unknown Malignant melanoma Unknown Hypertension Unknown Advance Directives No Advanced Directives Records FoundLatest Code Status on File Code Status Date Activated Date Inactivated Comments Full Code 03/07/2022 7:41 AM Latest Code Status on File Code Status Date Activated Date Inactivated Comments Full Code 03/07/2022 7:41 AM 03/07/2022 5:10 PM Documents on File Type Date Recorded Patient Mother Baby Rn Expl anation DNR (Do Not Resuscitate) 08/15/2015 Documents on File Type Date Recorded Patient Mother Baby Rn Expl anation DNR (Do Not Resuscitate) 08/15/2015 Chief Complaint and Reason for Visit Chief Complaint STANDING ORDER FROM DR HERNANDEZ Chief Complaint STANDING ORDER FROM DR HERNANDEZ S/O-PAIN COPY PCP Chief Complaint S/O-PAIN COPY PCP Chief Complaint SCREENING Chief Complaint S/O PLUS ORDER FROM TAT[place]NA STANDING ORDER FROM DR HERNANDEZ Chief Complaint STANDING ORDER FROM DR HERNANDEZ SCREENING Chief Complaint Admit Date S/O- PAIN- COPY PCP August 10, 2024 3 :37pm SCREENING September 06, 2024 3:19pm 2 DRS/ 2 ORDERS October 29, 2024 10:31am CONCERN FOR SINUS INFECTION October 10:59am Reason for Visit Admit Date Acute sinusitis October 29, 2024 10:59am Contact with or suspected ex posure to other viral communicable disease October 29, 2024 10:59am Additional Source Comments INFORMATION SOURCE (unrecogn ized section and content) DATE CREATED AUTHOR 03/27/2020 [facility] DATE CREATED AUTHOR AUTHOR'S ORGANIZ ATION 06/09/2022 [facility] DATE CREATED AUTHOR AUTHOR'S ORGANIZ ATION 11/06/2023 [facility] DATE CREATED AUTHOR AUTHOR'S ORGANIZ ATION 04/08/2024 [facility] ([place] DATE CREATED AUTHOR AUTHOR'S ORGANIZ ATION 11/23/2024 [facility] DATE CREATED AUTHOR AUTHOR'S ORGANIZ ATION 03/26/2025 [facility] DATE CREATED AUTHOR AUTHOR'S ORGANIZ ATION 04/07/2025 [facility] DATE CREATED AUTHOR AUTHOR'S ORGANIZ ATION 04/20/2025 [facility] DATE CREATED AUTHOR AUTHOR'S ORGANIZ ATION 05/10/2025 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 Operator Relationship Specialty Start Date End Date Sergio Jauregui DO [address] [place] [address] PCP - General Family Medicine 09/08/21 Flooring Machine Operator Relationship Specialty Start Date End Date Sergio Jauregui DO [address] [place] [address] PCP - General Family Medicine 09/08/21 Flooring Machine Operator Relationship Specialty Start Date End Date Sergio Jauregui DO [address] [place] [id number] PCP - General Family Medicine 09/08/21 Flooring Machine Operator Relationship Specialty Start Date End Date Sergio Jauregui DO [address] [place] [address] PCP - General Family Medicine 09/08/21 Team Status: Active Member Role Status Dates Dr. Sergio Jauregui DO Family Provider Active Dr. Sergio Jauregui DO Primary Care Provider Active Team Status: Inactive Member Role Status Dates Dr. Sergio Jauregui DO Primary Care Provider Active Dr. Lena Hernandez MD Attending Provider, Referring Provider Active Team Status: Inactive Member Role Status Dates Dr. Sergio Jauregui DO Primary Care Provider, Attendi ng Provider Active Team Status: Inactive Member Role Status Dates Dr. Sergio Jauregui DO Primary Care Provider Active Dr. Cameron Simpson , DO Attending Provider, Referring Provider Active Team Status: Inactive Member Role Status Dates Dr. Sergio Jauregui DO Primary Care Provider Active Dr. Cameron Simpson , DO Attending Provider, Referring Provider Active Dr. 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 Operator Relationship Specialty Start Date End Date Sergio Jauregui DO [address] [place] [address] PCP - General 09/08/21 Flooring Machine Operator Relationship Specialty Start Date End Date Sergio Jauregui DO [address] [place] [address] PCP - General 09/08/21 Flooring Machine Operator Relationship Specialty Start Date End Date Sergio Jauregui DO [address] [place] [id number] PCP - General 09/08/21 Flooring Machine Operator Relationship Specialty Start Date End Date Sergio Jauregui DO [address] [place] [id number] PCP - General 09/08/21 Flooring Machine Operator Relationship Specialty Start Date End Date Sergio Jauregui DO [address] [place] [address] PCP - General 09/08/21 Flooring Machine Operator Relationship Specialty Start Date End Date Sergio Jauregui DO [address] [place] [address] PCP - General 09/08/21 Flooring Machine Operator Relationship Specialty Start Date End Date Sergio Jauregui DO [address] [place] [address] PCP - General 09/08/21 Flooring Machine Operator Relationship Specialty Start Date End Date Sergio Jauregui DO [address] [place] [address] PCP - General 09/08/21 Flooring Machine Operator Relationship Specialty Start Date End Date Sergio Jauregui DO [address] [place] [id number] PCP - General 09/08/21 Team Status: Inactive Member Role Status Dates Dr. Sergio Jauregui DO Primary Care Provider Active Dr. Lena Hernandez MD Attending Provider, Referring Provider Active Dr. Cameron Simpson DO Other Provider Active Team Status: Inactive Member Role Status Dates Dr. Sergio Jauregui DO Primary Care Provider Active Dr. Lena Hernandez MD Attending Provider Active Dr. Cameron Simpson DO Other Provider Active Flooring Machine Operator Relationship Specialty Start Date End Date Sergio Jauregui DO [address] [place] [id number] PCP - General 09/08/21 Team Status: Inactive Member Role Status Dates Dr. Sergio Jauregui DO Primary Care Provider Active Dr. Elisabeth Willoughby MD Attending Provider, Referring Pr ovider Active Flooring Machine Operator Relationship Specialty Start Date End Date Sergio Jauregui DO [address] [place] [address] PCP - General 09/08/21 Team Status: Active Member Role Status Dates Dr. Sergio Jauregui DO Primary Care Provider Active Dr. Elisabeth Willoughby MD Attending Provider, Referring Pr ovider Active Flooring Machine Operator Relationship Specialty Start Date End Date Sergio Jauregui DO [address] [place] [id number] PCP - General 09/08/21 Team Status: Inactive Member Role Status Dates Dr. Sergio Jauregui DO Primary Care Provider Active Start: August 10, 2024 End: August 10, 2024 Dr. Lena Hernandez MD Attending Provider Active Start: August 10, 2024 End: August 10, 2024 Dr. Lena Hernandez MD Referring Provider Active Start: August 10, 2024 End: August 10, 2024 Team Status: Inactive Member Role Status Dates Dr. Sergio Jauregui DO Primary Care Provider Active Start: September 06, 2024 End: September 06, 2024 Dr. Elisabeth Willoughby MD Attending Provider Active Start: September 06, 2024 End: September 06, 2024 Dr. Elisabeth Willoughby MD Referring Provider Active Start: September 06, 2024 End: September 06, 2024 Team Status: Inactive Member Role Status Dates Dr. Sergio Jauregui DO Primary Care Provider Active Start: October 29, 2024 End: October 29, 2024 Dr. Cameron Simpson DO Attending Provider Active Start: October 29, 2024 End: October 29, 2024 Dr. Cameron Simpson DO Referring Provider Active Start: October 29, 2024 End: October 29, 2024 Dr. Lena Hernandez MD Other Provider Active St art: October 29, 2024 End: October 29, 2024 Team Status: Inactive Member Role Status Dates Dr. Sergio Jauregui DO Primary Care Provider Active Start: October 29, 2024 End: October 29, 2024 Dr. Sergio Jauregui DO Referring Provider Active Start: October 29, 2024 End: October 29, 2024 Donnie TAN, PA Attending Provider Active Sta rt: October 29, 2024 End: October 29, 2024 Flooring Machine Operator Relationship Specialty Start Date End Date Sergio Jauregui DO PCP - General 09/19/09 Flooring Machine Operator Relationship Specialty Start Date End Date Sergio Jauregui DO PCP - General 09/19/09 Team Status: Active Member Role/Relationship Status Dates Dr. Sergio Jauregui DO Family Provider Active ZULEIMA EDMONDS Primary Care Provider Active Team Status: Inactive Member Role/Relationship Status Dates ZULEIMA EDMONDS Primary Care Provider Active Start: March 17, 2025 End: March 17, 2025 DOMINICK Boyle Attending Provider Active Start: March 17, 2025 End: March 17, 2025 DOMINICK Boyle Referring Provider Active Start: March 17, 2025 End: March 17, 2025 Flooring Machine Operator Relationship Specialty Start Date End Date Shania Sergio SungDO PCP - General 09/19/09 Flooring Machine Operator Relationship Specialty Start Date End Date Sergio Jauregui DO PCP - General 09/19/09 Flooring Machine Operator Relationship Specialty Start Date End Date Sergio Jauregui DO [address] [place] [address] [place] [address] PCP - General Family Medicine 05/02/25 Ordered Prescriptions (unrec ognized section and content) Prescription Sig Dispensed Refills Start Date End Da ondansetron (ZOFRAN-ODT) 4 MG disintegrating tabletIndications:Traumat ic rupture of left anterior tibial tendon, subsequent encounter,Arthritis of foot Take 1 tablet by mouth 3 times daily as needed for Nausea or Vomiting 21 tablet 0 03/07/2022 aspirin EC 81 MG EC tabletIndications:Traumat ic rupture of left anterior tibial tendon, subsequent encounter,Arthritis of foot Take 1 tablet by mouth daily 30 tablet 0 03/07/2022 oxyCODONE-acetaminophen (PERCOCET) 5-325 MG per tabletIndications:Traumat ic rupture of left anterior tibial tendon, subsequent encounter,Arthritis of foot Take 1 tablet by mouth every 6 hours as needed for Pain for up to 7 days. Intended supply: 7 days. Take lowest dose possible to manage pain 28 tablet 0 03/07/2022 03/14/2022 Scheduled Active and Recently Administ ered Medications (unrecognized section and content) Medication Order 03/05/2022 03/06/2022 03/07/2022 acetaminophen (TYLENOL) tablet 1,000 mg (COMPLETED) 1,000 mg, Oral, ONCE, 1 dose, On Sophia 03/07/22 at 0800, Maximum dose of acetaminophen is 4000 mg from all sources in 24 hours. Do not administer if patient has taken tylenol <4 hours earlier. Do not give if contraindicated ie. patient has active liver disease or cirrhosis., Pre-op (day of surgery) 0820 (Given - Provid er: Nia Sequeira RN) ceFAZolin (ANCEF) 3000 mg in sodium chloride 0.9% 100 mL IVPB (COMPLETED) 3,000 mg, IntraVENous, MARBLE FINISHER TO O.R., 1 dose, On Sophia 03/07/22 at 0800, Antimicrobial Indications: Surgical Prophylaxis, Administer within 1 hour prior to incision. Recommend to repeat in 3-4 hours after initial dose if still intra-op., Pre-op (day of surgery) 1000 (Given by Other Clinician - Provider: Sariah Pineda RN - Comment: given in OR by grinding room supervisor) dexameth sod gxzw-gjuob-lazo (TAP) syringe SOSY 60 mL (COMPLETED) 60 mL, Transabdominal Plane, ONCE, 1 dose, On Sophia 03/07/22 at 0915, Popliteal, not TAP, PACU only 900 (Given - Provid er: Sariah Pineda RN) famotidine (PEPCID) tablet 20 mg (COMPLETED) 20 mg, Oral, ONCE, 1 dose, On Sophia 03/07/22 at 0800, Pre-op (day of surgery) 08 (Given - Provid er: Nia Sequeira RN) lidocaine PF 1 % injection 5 mL (COMPLETED) 5 mL, IntraDERmal, ONCE, 1 dose, On Sophia 03/07/22 at 0915, Draw up for preparation of administration during block procedure., PACU only 900 (Given - Provid er: Sariah Pineda RN - Comment: REGIONAL BLOCK) LORazepam (ATIVAN) injection 0.5 mg 0.5 mg, IntraVENous, ONCE, 1 dose, On Sophia 03/07/ at 0915, PACU only 0915 (Due) ropivacaine (NAROPIN) 0.5% injection 10 mL (COMPLETED) 10 mL, Infiltration, ONCE, 1 dose, On Sophia 03/07/22 at 0915, Draw up 10ml for Saphenous block., PACU only 900 (Given - Provid er: Sariah Pineda RN) sodium chloride flush 0.9 % injection 5-40 mL 5-40 mL, IntraVENous, EVERY 12 HOURS SCHEDULED (2 times per day), First dose on Sophia 03/07/22 at 0900, Until Discontinued, For Line Patency: Peripheral IV = 5 [...] = 20 mL/lumen, Pre-op (day of surgery) 0900 (Due)2100 (Due) sodium chloride flush 0.9 % injection 5-40 mL 5-40 mL, IntraVENous, EVERY 12 HOURS SCHEDULED (2 times per day), First dose on Sophia 03/07/22 at 0915, Until Discontinued, For Line Patency: Peripheral IV = 5 [...] Central Line = 20 mL/lumen, PACU only 0915 (Due)2100 (Due) Continuous Medication Order 03/05/2022 03/06/2022 03/07/2022 lactated ringers infusion IntraVENous, at 50 mL/hr, CONTINUOUS, Starting on Sophia 03/07/22 at 0800, Upon admission to sameday [...] direction. Up to 100 micrograms., PACU only 09 (Given - Provid er: [...] Sophia 03/07/22 at 0850, Until Discontinued, Pain Severe (7-10), [...] ONCE PRN, 1 dose, Starting on Sophia 6/30/22 at 0741, Until Sophia 03/07/22 at 2359, [...] direction. Up to two mg., PACU only 0901 (Given - Provid er: Sariah Pineda RN) ondansetron (ZOFRAN) injection 4 mg (COMPLETED) 4 mg, IntraVENous, ONCE PRN, 1 dose, Starting on Sophia 03/07/22 at 0850, Until Sophia 03/07/22 at 2359, Nausea, Initial antiemetic therapy., PACU only 1339 (Given - Provid er: Sariah Pineda RN) [...] Volume Adjustment - Provider: Eli Fraga CRNA) eouLSYTJtzwym-ysluaeeiwsg-nknugxx rine (TAP) syringe 60 mL (COMPLETED) 60 [...] direction. 1049 (Given - Provid er: Nicole Jay RN) ondansetron (Zofran) injection 4 mg 4 [...] and content) Care Team Personnel Name: SERGIO JAUREGUI DO Position: P4 Physician - Primary Care Member Role: Primary Care Physician Address: Address: [address] [place] [address] Care Team Related Persons Name: OLIVIA MELO Care Team Personnel Name: SERGIO JAUREGUI DO Position: P4 Physician - Primary Care Member Role: Primary Care Physician Address: Address: [address] [place] [address] Care Team Related Persons Name: OLIVIA MELO Reason for Visit (unrecogniz ed section and content) Reason Onset Date Comments Foot Pain 04/08/2023 Reason Comments Post-op 1 year PO triple, in creased pain arch Specialty Diagnoses / Procedures Referred By Matthewac t Referred To Contact Diagnoses Pseudarthrosis after fusion or arthrodesis Pseudarthrosis after fusion or arthrodesis [M96.0] Procedures CA REMOVAL IMPLANT DEEP CA ARTHRD MIDTARSL/TARS 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 CAREGIVER/TRANSVRS W/OSTEOT LEFT FOOT REMOVAL DEEP IMPLANT, REVISION CALCANEOCUBOID JOINT AND TALONAVICULAR JOINT ARTHRODESIS ARTHRODESIS FOOT MIDTARSAL OR METATARSAL WITH OSTEOTOMY Simone Amin MD 1 [facility] [address] [place] [address] [facility] Main Or [address] [place] [address] Referral ID Status Reason Start Date Expiration Date Visits Re quested Visits Authorized [id number] 1 1 Reason Comments Post-op Reason Comments Post-op postoperative visit s/p #1 Left Talonavicular joint fusion, #2 removal deep implant left foot Reason Comments Post-op L foot Reason Comments Post-op PO L arthrodesis (5 months Reason Comments Post-op Triple arthrodesis Reason Comments Consult Lipoma right upper b ack Source Comments (unrecognize d section and content) In the event this informatio n is protected by the Federal Confidentiality of Alcohol and Drug Abuse Patient Records regulations: The Federal rules restrict any use of the information to criminally investigate or prosecute any alcohol or drug abuse patient.[facility] the event this information is protected by the Federal Confidentiality of Alcohol and Drug Abuse Patient Records regulations: The Federal rules restrict any use of the information to criminally investigate or prosecute any alcohol or drug abuse patient.[facility] Hospital[facility] the event this information is protected by the Federal Confidentiality of Alcohol and Drug Abuse Patient Records regulations: The Federal rules restrict any use of the information to criminally investigate or prosecute any alcohol or drug abuse patient.[facility] Hospital[facility] the event this information is protected by the Federal Confidentiality of Alcohol and Drug Abuse Patient Records regulations: The Federal rules restrict any use of the information to criminally investigate or prosecute any alcohol or drug abuse patient.[facility] FOR RECORDS PERTAINING TO PATIENTS WHO ARE [...] BE BASED ON THE PRIMARY CLINICAL RECORDS. [facility] [employer] [facility]. provides no warranty or guarantee of the accuracy or completeness of information in this document.
--- NOTE | 2025-09-02 15:27 | US_ITS ---
PROCEDURE: CHEST 09/02/2025 REASON FOR EXAM: R UPPER CHEST LYMPHADENOPATHY TECHNIQUE: Procedure Code: USCHEST Modality: US Procedure: CHEST US/Chest IMPRESSION: Within the right anterior upper chest, there is an ovoid hyperechoic structure measuring 2.3 x 3.6 x 0.9 cm, which may reflect a lipoma. Reading Location: [facility]
== END | disposition home or self-care (01) ==
LOC: US 15:23
PROVIDERS: PCP Nurse Practitioner Adult Health; Referring Provider Nurse Practitioner Adult Health; Visit Provider Nurse Practitioner Adult Health
DX: R59.1 Generalized enlarged lymph nodes (principal)
CPT/HCPCS: 76604

== ENCOUNTER → 2025-09-07 | Outpatient (CLI) | payer OTHER, SELFPAY ==
--- NOTE | 2025-09-07 15:48 | BI_ITS ---
EXAM: SCRN MAMM (CAD)W/URBAN BILAT DATE: 09/07/2025 CLINICAL HISTORY: F, Age 55 y/o , SCREENING TECHNIQUE: Procedure Code: [id number] Modality: MG Procedure: SCRN MAMM (CAD)W/URBAN BILAT COMPARISON: Prior exam(s) dated 08/10/2024, 08/21/2023, 08/28/2022. FINDINGS: TISSUE DENSITY: There are scattered areas of fibroglandular density. Bilateral Breast Mammographic Findings: No significant masses, calcifications or other abnormalities are identified. BI/SCRN MAMM (CAD)W/URBAN BILAT IMPRESSION: There is no mammographic evidence of malignancy. OVERALL FINAL ASSESSMENT BI-RADS 1: NEGATIVE. RECOMMENDATION: Routine annual follow-up in 1 Year Additional Recommendation none A letter with findings and recommendations will be mailed to the patient. Reading Location: [id number]
== END | disposition home or self-care (01) ==
LOC: OPBI 15:48
PROVIDERS: PCP Nurse Practitioner Adult Health; Referring Provider Nurse Practitioner Adult Health; Visit Provider Nurse Practitioner Adult Health
DX: Z12.31 Encounter for screening mammogram for malignant neoplasm of breast (principal)
CPT/HCPCS: 77063; 77067